=== PATIENT | female | born 1950 | race Caucasian/White ===

== ENCOUNTER 2017-04-13 12:55 | Emergency (ER) | payer MEDICARE ==
[2017-04-13 13:00] VITALS: RESP 18
[2017-04-13] MEDS ORDERED: SODIUM CHLORIDE 0.9% 1,000 ML IV ONE (13:40)
[2017-04-13] MEDS ORDERED: RX INFO: IV CONTRAST WAS GIVEN 1 EACH MISC MISCELLANE PRN (13:40)
[2017-04-13] MEDS ORDERED: FAMOTIDINE 20 MG/2 ML VIAL IV STA (13:41)
[2017-04-13] MEDS ORDERED: diphenhydrAMINE 50 MG/ML 1 ML VIAL IVP STA (13:41)
--- NOTE | 2017-04-13 13:42 | ED ---
General Adult HPI - General Chief complaint: Recheck/Abnormal Lab/Rx Stated complaint: Lump/Abscess on side of face Time Seen by Provider: 04/13/17 13:19 Source: patient, RN notes reviewed, old records reviewed Mode of arrival: ambulatory Limitations: no limitations - History of Present Illness Initial comments: 66-year-old female chief complaint of left-sided facial swelling for the past day. Patient reports that she is not shower noticed this abnormal swelling. Denies any recent fever or chills. She reports that very painful to touch. Patient states that it's over the lower jaw. Denies any foul taste in her mouth or abnormal salivation. Patient states she's never had symptoms like this before. Denies any specific ear pain or difficulty in hearing. - Related Data Home Medications Medication Instructions Recorded Confirmed Leflunomide [Arava] 10 mg PO DAILY 04/13/17 04/13/17 Levothyroxine Sodium [Synthroid] 75 mcg PO DAILY 04/13/17 04/13/17 amLODIPine [Norvasc] 5 mg PO DAILY 04/13/17 04/13/17 Previous Rx's Medication Instructions Recorded Amoxic-Pot Clav 875-125Mg 1 tab PO Q12HR #20 tablet 04/13/17 [Augmentin 875-125] Allergies Allergy/AdvReac Type Severity Reaction Status Date / Time iodine Allergy Anaphylaxis Verified 04/13/17 13:55 Review of Systems ROS Statement: Those systems with pertinent positive or pertinent negative responses have been documented in the HPI. ROS Other: All systems not noted in ROS Statement are negative. Past Medical History Past Medical History: Hyperlipidemia, Hypertension, Rheumatoid Arthritis (RA), Supraventricular Tachycardia (SVT), Thyroid Disorder History of Any Multi-Drug Resistant Organisms: MRSA, Other MDRO Date of last positivie culture/infection: 2006 Past Surgical History: Appendectomy, Section, Hysterectomy Past Psychological History: No Psychological Hx Reported Smoking Status: Current every day smoker Past Alcohol Use History: Rare Past Drug Use History: None Reported General Exam - General Exam Comments Initial Comments: 66-year-old female. No acute distress. Limitations: no limitations General appearance: alert, in no apparent distress Head exam: Present: atraumatic, normocephalic, normal inspection Eye exam: Present: normal appearance, PERRL, EOMI. Absent: scleral icterus, conjunctival injection, periorbital swelling ENT exam: Present: normal exam, normal oropharynx, mucous membranes moist, other (Evidence of left-sided neck and lower jaw abscess.) Neck exam: Present: normal inspection. Absent: tenderness, meningismus, lymphadenopathy Respiratory exam: Present: normal lung sounds bilaterally. Absent: respiratory distress, wheezes, rales, rhonchi, stridor Cardiovascular Exam: Present: regular rate, normal rhythm, normal heart sounds. Absent: systolic murmur, diastolic murmur, rubs, gallop, clicks GI/Abdominal exam: Present: soft, normal bowel sounds. Absent: distended, tenderness, guarding, rebound, rigid Extremities exam: Present: normal inspection, full ROM, normal capillary refill. Absent: tenderness, pedal edema, joint swelling, calf tenderness Back exam: Present: normal inspection Neurological exam: Present: alert, oriented X3, CN II-XII intact Psychiatric exam: Present: normal affect, normal mood Skin exam: Present: warm, dry, intact, normal color. Absent: rash Course Vital Signs 04/13/17 04/13/17 12:58 16:18 Temperature 98.5 F 97.9 F Pulse Rate 75 64 Respiratory 18 18 Rate Blood Pressure 133/77 130/70 O2 Sat by Pulse 94 L 94 L Oximetry Medical Decision Making - Lab Data Result diagrams: 04/13/17 14:09 04/13/17 14:09 Lab Results 04/13/17 04/13/17 Range/Units 14:09 14:09 WBC 5.1 (3.8-10.6) k/uL RBC 4.99 (3.80-5.40) m/uL Hgb 15.4 (11.4-16.0) gm/dL Hct 43.8 (34.0-46.0) % MCV 87.7 (80.0-100.0) fL MCH 30.8 (25.0-35.0) pg MCHC 35.1 (31.0-37.0) g/dL RDW 12.9 (11.5-15.5) % Plt Count 203 (150-450) k/uL Neutrophils % 61 % Lymphocytes % 22 % Monocytes % 10 % Eosinophils % 4 % Basophils % 1 % Neutrophils # 3.2 (1.3-7.7) k/uL Lymphocytes # 1.1 (1.0-4.8) k/uL Monocytes # 0.5 (0-1.0) k/uL Eosinophils # 0.2 (0-0.7) k/uL Basophils # 0.1 (0-0.2) k/uL Sodium 144 (137-145) mmol/L Potassium 3.7 (3.5-5.1) mmol/L Chloride 107 (98-107) mmol/L Carbon Dioxide 30 (22-30) mmol/L Anion Gap 7 mmol/L BUN 10 (7-17) mg/dL Creatinine 0.67 (0.52-1.04) mg/dL Est GFR (MDRD) Af Amer >60 (>60 ml/min/1.73 sqM) Est GFR (MDRD) Non-Af >60 (>60 ml/min/1.73 sqM) Glucose 98 (74-99) mg/dL Calcium 9.0 (8.4-10.2) mg/dL Disposition Clinical Impression: Acute parotitis, Sialolithiasis Disposition: HOME SELF-CARE Condition: Good Instructions: Sialoadenitis (ED) Additional Instructions: Patient advised to use lemon drops or any other acidic candies to allow the salivary stone to be removed. Follow-up with ENT specialist. Take antibiotics as prescribed. Return to the emergency department if any alarming signs or symptoms occur. Prescriptions: Amoxic-Pot Clav 875-125Mg [Augmentin 875-125] 1 tab PO Q12HR #20 tablet Referrals: Jeramie Watts DO [Primary Care Provider] - 1-2 days Yusuf Meredith MD [STAFF PHYSICIAN] - 1-2 days Time of Disposition: 16:10
[2017-04-13] MEDS: methylPREDNISolone SOD SUCCI 125 MG/2 ML VIAL IV STA ×2 (13:59→14:06)
[2017-04-13 14:21] LABS: Basophils # (A) 0.1 k/uL (0-0.2); Basophils % (A) 1 %; CH 29.7; Eosinophils # (A) 0.2 k/uL (0-0.7); Eosinophils % (A) 4 %; HCT 43.8 % (34.0-46.0); HDW 2.63; HGB 15.4 gm/dL (11.4-16.0); Luc % (Auto) 2; Lymphocytes # (A) 1.1 k/uL (1.0-4.8); Lymphocytes % (A) 22 %; MCH 30.8 pg (25.0-35.0); MCHC 35.1 g/dL (31.0-37.0); MCV 87.7 fL (80.0-100.0); Mean Platelet Volume 8.2; Monocytes # (A) 0.5 k/uL (0-1.0); Monocytes % (A) 10 %; Neutrophils # (A) 3.2 k/uL (1.3-7.7); Neutrophils % (A) 61 %; RBC 4.99 m/uL (3.80-5.40); RDW 12.9 % (11.5-15.5); WBC 5.1 k/uL (3.8-10.6); WBC (Perox) 5.14
[2017-04-13 14:35] LABS: Anion Gap 7 mmol/L; Blood Urea Nitrogen 10 mg/dL (7-17); Carbon Dioxide 30 mmol/L (22-30); Chloride 107 mmol/L (98-107); Glucose 98 mg/dL (74-99); Non-African American GFR(MDRD) >60 (>60 ml/min/1.73 sqM); Potassium 3.7 mmol/L (3.5-5.1); Sodium 144 mmol/L (137-145)
--- NOTE | 2017-04-13 15:53 | CT ---
EXAMINATION TYPE: CT soft tissue neck wo con DATE OF EXAM: 04/13/2017 HISTORY: Patient complains of painful mass anterior and inferior to left ear. COMPARISON: NONE CT DLP: 331.4 mGycm. Automated Exposure Control for Dose Reduction was Utilized. TECHNIQUE: CT scan of the neck is performed without IV contrast due to IV contrast and steroid aller gy. FINDINGS: Airway: No gross abnormality seen. Parotid/submandibular glands: There is asymmetric heterogeneous enlarged left parotid gland with some mild infiltration of surrounding fat along lateral aspect. No well-formed fluid collection or absces s is seen. There appears to be 2 mm round calcific focus suspicious for sialolith along proximal port ion of the draining Stensen's duct seen best on axial image 49 and sagittal image 64 and coronal imag e 33. Submandibular glands are symmetric and felt within normal limits. Carotid/Vascular Structures: There is mild to moderate peripheral calcified plaque at bilateral carot id bulbs. Mild to moderate calcified plaque is seen in the aortic arch. Osseous Structures: Spine is straightened. There is moderate disc space narrowing with mild spurring at C5-C6 and C6-C7 levels. Other: Slight nodular prominence right axillary region on axial image 11 appears to correspond to vas cular structure inferior to this, cannot exclude borderline adenopathy. Consider nonemergent follow-u p. No additional greater than 1 cm neck lymph nodes are clearly seen. IMPRESSION: 1. There is left-sided inflammation or parotiditis suspected acute and related to obstructing 2 mm si alolith as detailed above. ENT consult advised. No well-formed fluid collection or abscess is seen. 2. Cannot exclude borderline right axillary lymph node. This can be correlated with annual mammogram. Nonemergent ultrasound follow-up recommended.
[2017-04-13] MEDS ORDERED: AMOXIC-POT CLAV 875MG STARTER 2 EACH TABLET PO STA (16:10)
[2017-04-13 16:19] VITALS: BP 130/70; PULSE 64; TEMP 97.9
== END 2017-04-13 16:21 | disposition home or self-care (01) ==
LOC: EC 12:55
DX: K11.5 Sialolithiasis (principal); K11.20 Sialoadenitis, unspecified; I10 Essential (primary) hypertension; M06.9 Rheumatoid arthritis, unspecified; E07.9 Disorder of thyroid, unspecified; F17.200 Nicotine dependence, unspecified, uncomplicated; Z79.899 Other long term (current) drug therapy; Z91.048 Other nonmedicinal substance allergy status; Z53.20 Procedure and treatment not carried out because of patient's decision for unspecified reasons
CPT/HCPCS: 99284; 96374; 96375; 96361 ×2; 36415; 80048; 85025; 70490; J1200

== ENCOUNTER → 2017-04-15 | Outpatient (CLI) | payer MEDICARE ==
--- NOTE | 2017-04-15 12:41 | US ---
EXAMINATION TYPE: US gallbladder DATE OF EXAM: 04/15/2017 COMPARISON: 07/04/2010 CLINICAL HISTORY: R19.7 Diarrhea and Abd Pain R10.9. Intermittent abdomen and back pain and nausea x couple years, history of appendectomy EXAM MEASUREMENTS: Liver Length: 13.6 cm Gallbladder Wall: 0.2 cm CBD: 0.3 cm Right Kidney: 9.9 x 4.7 x 4.3 cm Pancreas: visualized portions wnl, tail obscured by overlying midline bowel gas Liver: Coarse in echo pattern Gallbladder: not well visualized, appears contracted Evidence for sonographic Byrnes's sign: yes CBD: visualized portions wnl, limited by overlying bowel gas Right Kidney: wnl IMPRESSION: 1. The gallbladder is contracted and limited in assessment. 2. Liver somewhat coarsened echo pattern correlate for fatty infiltration. Hepatitis or hepatocellula r disease in the differential diagnosis.
--- NOTE | 2017-04-15 15:10 | NM ---
Nuclear medicine hepatobiliary scan. HISTORY: Pain. DOSAGE: The patient received 8 ounces of ensure plus and 5.2 mCi of Technetium 99m Choletec. FINDINGS: There is normal hepatic extraction. The gallbladder is seen by 15 minutes. There is bilia ry to bowel clearance by 15 minutes. Ejection fraction is 65%. IMPRESSION: 1. Normal hepatobiliary exam
== END ==
LOC: RADUSMAIN 11:56
PROVIDERS: ATTEND Family Medicine
DX: R10.9 Unspecified abdominal pain (principal); R19.7 Diarrhea, unspecified
CPT/HCPCS: 76705; 78226; A9537

== ENCOUNTER → 2017-05-04 | Outpatient (CLI) | payer MEDICARE ==
--- NOTE | 2017-05-05 13:19 | MM ---
Reason for exam: screening (asymptomatic). Last mammogram was performed 5 years and 5 months ago. History: Patient is postmenopausal. Physical Findings: A clinical breast exam by your physician is recommended on an annual basis and results should be correlated with mammographic findings. MG 3D Screening Mammo W/Cad Bilateral CC and MLO view(s) were taken. Prior study comparison: November 24, 2011, bilateral digital screening mammo w/CAD. October 13, 2010, mammogram, performed at [facility]. The breast tissue is almost entirely fat. No significant changes when compared with prior studies. ASSESSMENT: Negative, BI-RAD 1 RECOMMENDATION: Routine screening mammogram of both breasts in 1 year.
== END | disposition home or self-care (01) ==
LOC: RADMAMWWP 08:33
PROVIDERS: ATTEND Family Medicine
DX: Z12.31 Encounter for screening mammogram for malignant neoplasm of breast (principal)
CPT/HCPCS: 77063; G0202

== ENCOUNTER 2017-05-13 07:41 | Day surgery (SDC) | payer MEDICARE ==
[2017-05-09 16:16] VITALS: BMI 27.7
[~2017-05-13 07:41] MED LIST: DEXAMETHASONE SOD PHOSPHATE 10 MG/ML 1 ML VIAL IV ONE; HEPARIN SODIUM,PORCINE 5,000 UNIT/ML 1 ML VIAL SQ ONE; HYDROmorphone 0.5 MG/0.5 ML SYRINGE IVP PRN; LACTATED RINGERS 1,000 ML IV SCH; LIDOCAINE 1% 20 ML VIAL (10MG/ML) FOR IV START INTRADERMA PRN; MIDAZOLAM 2 MG/2 ML VIAL IV PRN; ONDANSETRON 4 MG/2 ML VIAL IVP ONE; SCOPOLAMINE 1.5MG/72HR PATCH TRANSDERM ONE; ceFAZolin 2 GM in SODIUM CHLORIDE 0.9% 100 ML IVPB ONE
[2017-05-13] MEDS ORDERED: LIDOCAINE 1% 20 ML VIAL (10MG/ML) FOR IV START INTRADERMA ONE (08:17)
--- NOTE | 2017-05-13 08:42 | P.GSHP ---
History of Present Illness H&P Date: 05/13/17 Chief Complaint: Right upper quadrant pain Is a 66-year-old female who's had complaints of right quadrant pain. Patient describes crampy abdominal pain in the right quadrant after eating greasy food. She has nausea associated with this as well. Patient recent ultrasound showed a thickened gallbladder wall consistent with chronic cholecystitis. Past Medical History Past Medical History: Hyperlipidemia, Hypertension, Rheumatoid Arthritis (RA), Supraventricular Tachycardia (SVT), Thyroid Disorder Additional Past Medical History / Comment(s): salivary gland stone-resolved History of Any Multi-Drug Resistant Organisms: MRSA, Other MDRO Date of last positivie culture/infection: 2006 MDRO Source:: abscess top of rt leg Past Surgical History: Appendectomy, Section, Hysterectomy Past Anesthesia/Blood Transfusion Reactions: No Reported Reaction Smoking Status: Current every day smoker - Past Family History Father Family Medical History: Cancer Medications and Allergies Home Medications Medication Instructions Recorded Confirmed Type Leflunomide [Arava] 10 mg PO DAILY 04/13/17 05/13/17 History Levothyroxine Sodium [Synthroid] 75 mcg PO DAILY 04/13/17 05/13/17 History amLODIPine [Norvasc] 5 mg PO DAILY 04/13/17 05/13/17 History Nebivolol HCl [Bystolic] 10 mg PO DAILY 05/09/17 05/13/17 History Allergies Allergy/AdvReac Type Severity Reaction Status Date / Time adhesive tape Allergy Itching Verified 05/09/17 16:09 iodine Allergy Anaphylaxis Verified 05/09/17 16:09 Surgical - Exam Vital Signs Temp Pulse Resp BP Pulse Ox 97.5 F L 56 L 16 147/85 93 L 05/13/17 08:04 05/13/17 08:04 05/13/17 08:04 05/13/17 08:04 05/13/17 08:04 - General well developed, no distress - Eyes PERRL - ENT normal pinna - Neck no masses - Respiratory normal expansion - Cardiovascular Abnormal Heart Sounds: systolic murmur - Abdomen Mild right upper quadrant tenderness Abdomen: soft Assessment and Plan Plan: Chronic cholecystitis. We'll perform laparoscopic cholecystectomy.
[2017-05-13] MEDS ORDERED: PROPOFOL 10 MG/ML 20 ML VIAL IV ONE (08:58)
[2017-05-13] MEDS ORDERED: ePHEDrine SULFATE/0.9% NACL/PF 50 MG/5 ML SYRINGE IV ONE (08:58)
[2017-05-13] MEDS ORDERED: SUCCINYLCHOLINE CHLORIDE 100 MG/5 ML SYR IV ONE (08:58)
[2017-05-13] MEDS ORDERED: ROCURONIUM BROMIDE 10 MG/ML 10 ML VIAL IV ONE (08:58)
[2017-05-13] MEDS ORDERED: LIDOCAINE 1% INJ 10MG/ML (20 ML MDV) ONE (08:58)
[2017-05-13] MEDS ORDERED: KETOROLAC 30 MG/ML 1 ML VIAL ONE (08:58)
[2017-05-13] MEDS ORDERED: fentaNYL (PF) 50 MCG/ML 2 ML AMP ONE (08:58)
[2017-05-13] MEDS ORDERED: BUPIVACAINE (PF) 0.5% 30 ML VIAL SQ ONE ×2 (09:09→09:23)
--- NOTE | 2017-05-13 09:44 | P.OP ---
Date of Procedure: 05/13/17 Preoperative Diagnosis: Cholecystitis Postoperative Diagnosis: Cholecystitis Procedure(s) Performed: Laparoscopic cholecystectomy Anesthesia: RAMA Surgeon: Kurtis Lewis Estimated Blood Loss (ml): 5 Pathology: other (gAll bladder) Description of Procedure: The patient was placed on the operating table. The patient received a general endotracheal tube anesthesia. The patients abdomen was prepped and draped in the usual sterile fashion. Through an infraumbilical stab incision, the fascia of the anterior abdominal wall was grasped with a pair of Kochers and then the Veress needle was placed in the peritoneal cavity. Position of the Veress needle was confirmed with positive drop test. The abdomen was then insufflated. After adequate insufflation, the 10 mm trocar was placed in the peritoneal cavity. Following this the laparoscope was placed in the peritoneal cavity. The patient was placed in the head-up, right side up position and then a 5 mm trocar was placed in the right lateral and right subcostal position under direct visualization. A 8 mm trocar was placed in the epigastric position. The gallbladder was grasped in the fundus and infundibulum. Traction on the gallbladder was placed in the lateral and the cephalad positions. The triangle of Calot was visualized.. The cystic duct was bluntly dissected until the union of the cystic duct and common bile duct was seen. The cystic duct was then divided and sealed with the Harmonic scissors. A PDS Endoloop was then placed throughout the cystic duct stump. The cystic artery divided and sealed with the Harmonic scissors. The gallbladder was then removed from the liver bed using Harmonic scissors. The gallbladder was then extracted through the epigastric port site. Operative field was checked for any bleeding spots and Harmonic scissors was used to coagulate the liver bed. The abdomen was irrigated. The trocars were removed. The skin was closed using interrupted 3-0 Vicryl suture. Dermabond dressing were applied. The patient tolerated the procedure well.
[2017-05-13 09:54] VITALS: TEMP 97.4
[2017-05-13 10:43] VITALS: RESP 18
[2017-05-13] MEDS ORDERED: LACTATED RINGERS 1,000 ML IV ONE (11:03)
[2017-05-13 12:29] VITALS: BP 119/67; PULSE 55
== END 2017-05-13 12:42 | disposition home or self-care (01) ==
LOC: OR 07:41
PROVIDERS: ATTEND Surgery
DX: K81.1 Chronic cholecystitis (principal); I89.8 Other specified noninfective disorders of lymphatic vessels and lymph nodes; E78.5 Hyperlipidemia, unspecified; I10 Essential (primary) hypertension; M06.9 Rheumatoid arthritis, unspecified; I47.1 Supraventricular tachycardia; E07.9 Disorder of thyroid, unspecified; F17.200 Nicotine dependence, unspecified, uncomplicated; Z79.899 Other long term (current) drug therapy; Z91.041 Radiographic dye allergy status; Z91.09 Other allergy status, other than to drugs and biological substances
CPT/HCPCS: 88304; 47562; J1644; J1100; J0690; J2405; J2001; J3010; J1885; J0330; J2704

== ENCOUNTER 2018-10-02 16:16 | Emergency (ER) | payer MEDICARE ==
[2018-10-02 17:39] VITALS: BP 125/78; PULSE 69; RESP 18; TEMP 98.7
[2018-10-02] MEDS ORDERED: LIDOCAINE 1% INJ 10MG/ML (20 ML MDV) SQ ONE (17:56)
[2018-10-02] MEDS ORDERED: CEPHALEXIN 500MG STARTER PACK 4 CAP BTL PO STA (18:11)
[2018-10-02] MEDS ORDERED: SULFAMETH-TMP DS STARTER PACK 2 TAB BTL PO STA (18:11)
--- NOTE | 2018-10-02 18:13 | ED ---
Skin/Abscess/FB HPI - General Chief complaint: Skin/Abscess/Foreign Body Stated complaint: Leg Infection Time Seen by Provider: 10/02/18 17:42 Source: patient Mode of arrival: ambulatory Limitations: no limitations - History of Present Illness Initial comments: Pleasant, well appearing 67-year-old female with distant history of MRSA infection presenting today for chief complaint of possible ingrown hair of the right inguinal region. Patient states about 2 days ago she noticed a small bump that appear to be an ingrown hair of the right side of the labia majora. She states increased in size it's now about the size of a nickel/quarters. She states she has been able to squeeze some blood out of it however no pus. She denies a significant soft tissue surrounding redness. She denies any fever or chills or night sweats. Patient denies any general malaise. She states is uncomfortable walking due to rubbing. Remaining review of systems negative, patient denies any recent shortness of breath, chest pain, back pain, abdominal pain, nausea or vomiting, numbness or tingling, dysuria or hematuria, constipation or diarrhea, headaches or visual changes, or any other complaints. - Related Data Home Medications Medication Instructions Recorded Confirmed Leflunomide [Arava] 10 mg PO DAILY 04/13/17 05/13/17 Levothyroxine Sodium [Synthroid] 75 mcg PO DAILY 04/13/17 05/13/17 amLODIPine [Norvasc] 5 mg PO DAILY 04/13/17 05/13/17 Nebivolol HCl [Bystolic] 10 mg PO DAILY 05/09/17 05/13/17 Previous Rx's Medication Instructions Recorded Docusate [Colace] 100 mg PO BID #20 capsule 05/13/17 HYDROcodone/APAP 7.5-325MG [[place] 1 each PO Q4H PRN #60 tab 05/13/17 7.5] Cephalexin [Keflex] 500 mg PO Q6HR 7 Days #28 cap 10/02/18 Sulfamethox-Tmp 800-160Mg [Bactrim 1 tab PO Q12HR 7 Days #14 tab 10/02/18 DS 800-160 mg] Allergies Allergy/AdvReac Type Severity Reaction Status Date / Time adhesive tape Allergy Itching Verified 10/02/18 17:39 iodine Allergy Anaphylaxis Verified 10/02/18 17:39 Review of Systems ROS Statement: Those systems with pertinent positive or pertinent negative responses have been documented in the HPI. ROS Other: All systems not noted in ROS Statement are negative. Past Medical History Past Medical History: Hyperlipidemia, Hypertension, Rheumatoid Arthritis (RA), Supraventricular Tachycardia (SVT), Thyroid Disorder Additional Past Medical History / Comment(s): salivary gland stone-resolved History of Any Multi-Drug Resistant Organisms: MRSA, Other MDRO Date of last positivie culture/infection: 2006 MDRO Source:: abscess top of rt leg Past Surgical History: Appendectomy, Section, Hysterectomy Past Anesthesia/Blood Transfusion Reactions: No Reported Reaction Past Psychological History: No Psychological Hx Reported Smoking Status: Current every day smoker - Past Family History Father Family Medical History: Cancer General Exam - General Exam Comments Initial Comments: General: The patient is awake and alert, in no distress, and does not appear acutely ill. Eye: +3 mm pupils are equal, round and reactive to light, extra-ocular movements are intact. No nystagmus. There is normal conjunctiva bilaterally. No signs of icterus. Ears, nose, mouth and throat: There are moist mucous membranes and no oral lesions. Neck: The neck is supple, there is no tenderness or JVD. Cardiovascular: There is a regular rate and rhythm. No murmur, rub or gallop is appreciated. Respiratory: Lungs are clear to auscultation, respirations are non-labored, breath sounds are equal. No wheezes, stridor, rales, or rhonchi. Gastrointestinal: Soft, non-distended, non-tender abdomen without masses or organomegaly noted. There is no rebound or guarding present. No CVA tenderness. Bowel sounds are unremarkable. Musculoskeletal: Normal ROM, no tenderness. Strength 5/5. Sensation intact. Pulses equal bilaterally 2+. Neurological: A&O x 3. CN II-XII intact, There are no obvious motor or sensory deficits. Coordination appears grossly intact. Speech is normal. Skin: Skin is warm and dry and no rashes. Upon inspection of the right labia majora there is a small carbuncle that appears to have developed into an abscess. Small area of fluctuance in the center. No significant surrounding erythema very mild about the size of a quarter. No involvement of the peritoneum. No surrounding cellulitis. Tender to palpation. Psychiatric: Cooperative, appropriate mood & affect, normal judgment. Limitations: no limitations Course Vital Signs 10/02/18 17:37 Temperature 98.7 F Pulse Rate 69 Respiratory 18 Rate Blood Pressure 125/78 O2 Sat by Pulse 94 L Oximetry Procedures - Incision & Drainage Consent Obtained: verbal consent Indication: abscess Site: other (right labia majora) Size (cm): 1 Anesthetic Used: lidocaine 1% Amount (mLs): 1 I&D Cleaning Method: Iodine Sterile Field Used?: No Scalpel Used: #11 Needle Aspiration Performed?: No Irrigation Performed?: Yes I&D Drainage Obtained: Pus, Blood Packing: Other (no packing indicated, no large enough) Culture Obtained?: Yes Patient Tolerated Procedure: well, no complications Medical Decision Making - Medical Decision Making Appearing 67 year old female no signs of toxicity present today for chief complaint abscess. PE revealed furuncle that likely developed into small abscess with no surrounding cellulitis. I&D was performed patient however procedure and I did obtain verbal consent. Cultures are obtained, pending. Given patient's history of previous MRSA infection although this was 20 years ago I did start patient on antibiotic regimen that covers staph strep, and MRSA. Patient refuses any pain medication prior after procedure. At this time I do feel patient is stable for discharge. I discussed the case including PE findings with attending, Dr. Phillip who agreed with impression and plan. Pt was discharged appearing well, and pleased with plan. Patient is aware of all return parameters and follow-up instruction. Patient denies questions at this time. Disposition Clinical Impression: Abscess Disposition: HOME SELF-CARE Condition: Good Instructions (If sedation given, give patient instructions): Abscess Incision and Drainage (ED) Additional Instructions: Please use medication as discussed. Please follow-up with family doctor in the next 2 days. Please return to emergency room if the symptoms increase or worsen or for any other concerns, spread of redness, fever. Prescriptions: Cephalexin [Keflex] 500 mg PO Q6HR 7 Days #28 cap Sulfamethox-Tmp 800-160Mg [Bactrim DS 800-160 mg] 1 tab PO Q12HR 7 Days #14 tab Is patient prescribed a controlled substance at d/c from ED?: No Referrals: Jeramie Watts DO [Primary Care Provider] - 1-2 days Time of Disposition: 18:12
== END 2018-10-02 18:42 | disposition home or self-care (01) ==
LOC: EC 16:16
DX: N76.4 Abscess of vulva (principal); M06.9 Rheumatoid arthritis, unspecified; I10 Essential (primary) hypertension; E07.9 Disorder of thyroid, unspecified; F17.200 Nicotine dependence, unspecified, uncomplicated; Z86.14 Personal history of Methicillin resistant Staphylococcus aureus infection; Z79.890 Hormone replacement therapy; Z79.899 Other long term (current) drug therapy; Z88.8 Allergy status to other drugs, medicaments and biological substances; Z91.048 Other nonmedicinal substance allergy status
CPT/HCPCS: 87070; 87205; 99283; 56405; J2001

== ENCOUNTER 2018-12-06 18:53 | Inpatient (IN) | payer MEDICARE ==
[2018-12-06] MEDS ORDERED: ASPIRIN 81 MG PO STA (19:26)
--- NOTE | 2018-12-06 19:28 | ED ---
General Adult HPI - General Chief complaint: Chest Pain Stated complaint: chest pains Time Seen by Provider: 12/06/18 19:15 Source: patient Mode of arrival: ambulatory Limitations: no limitations - History of Present Illness Initial comments: Dictation was produced using [employer] dictation software. please excuse any grammatical, word or spelling errors. Chief Complaint: 68-year-old female past medical history of rheumatoid arthritis, supraventricular tachycardia presents with episode of chest pain. History of Present Illness: Patient is a 68-year-old female with past medical history of rheumatoid arthritis and supraventricular tachycardia presents with episode of chest pain. Patient states she was sitting in her kitchen when she developed a intense epigastric substernal chest pressure with radiation to the back. She denies that this pain radiated to her upper extremities, shoulders or jaws. No diaphoresis however she did feel little clammy. She is taking that this was secondary to reflux that she drank a couple sips of Mylanta. She states it didn't really help. On her way en route to the emergency department she states her symptoms improved. She denies any history of coronary artery disease. There is some family history of cardiac disease. Patient asymptomatic at this time. She otherwise has been feeling at baseline. The ROS documented in this emergency department record has been reviewed and confirmed by me. Those systems with pertinent positive or negative responses have been documented in the HPI. All other systems are other negative and/or noncontributory. PHYSICAL EXAM: General Impression: Alert and oriented x3, not in acute distress HEENT: Normocephalic atraumatic, extra-ocular movements intact, pupils equal and reactive to light bilaterally, mucous membranes moist. Cardiovascular: Heart regular rate and rhythm, S1&S2 audible, no murmurs, rubs or gallops Chest: Lungs clear to auscultation bilaterally, no rhonchi, no wheeze, no rales Abdomen: Bowel sounds present, abdomen soft, non-tender, non-distended, no organomegaly Musculoskeletal: Pulses present and equal in all extremities, no peripheral edema Motor: no focal deficits noted Neurological: CN II-XII grossly intact, no focal motor or sensory deficits noted Skin: Intact with no visualized rashes Psych: Normal affect and mood ED course: 68-year-old female with chief complaint of chest pain. Vital signs upon arrival are within acceptable limits.Patient is asymptomatic at this time. Patient's clinical presentation concerning for ACS. EKG showed ischemic changes with diffuse T-wave inversions in the precordial leads. Laboratory evaluation obtained. CBC, coag panel unremarkable. Metabolic panel is negative. Cardiac enzymes negative. Repeat EKG shows no dynamic changes. Patient reevaluated found with stable medical condition. Patient started on heparin. We'll plan to have patient admitted for evaluation of acute coronary syndrome. Patient given aspirin. Patient understandable agreeable to disposition. Discussed patient case with Dr. Emery who is willing to accept the admission. EKG interpretation: Ventricular rate 65, normal sinus rhythm, AZ interval 1:30, care is 82, QTc 453. No AZ prolongation, no QTC prolongation. T-wave inversions in high lateral leads and precordial leads. - Related Data Home Medications Medication Instructions Recorded Confirmed Levothyroxine Sodium [Synthroid] 75 mcg PO DAILY 04/13/17 12/06/18 amLODIPine [Norvasc] 5 mg PO DAILY 04/13/17 12/06/18 Carvedilol 12.5 mg PO DAILY 12/06/18 12/06/18 Diphenoxylate HCl/Atropine 1 tab PO QID PRN 12/06/18 12/06/18 [Lomotil 2.5-0.025 mg Tablet] Allergies Allergy/AdvReac Type Severity Reaction Status Date / Time adhesive tape Allergy Itching Verified 12/06/18 19:07 iodine Allergy Anaphylaxis Verified 12/06/18 19:07 latex Allergy Rash/Hives Verified 12/06/18 19:41 sulfamethoxazole Allergy Unknown Verified 12/06/18 19:41 [From Bactrim] trimethoprim [From Bactrim] Allergy Unknown Verified 12/06/18 19:41 STEROIDS AdvReac Uncoded 12/06/18 19:41 Review of Systems ROS Statement: Those systems with pertinent positive or pertinent negative responses have been documented in the HPI. ROS Other: All systems not noted in ROS Statement are negative. Past Medical History Past Medical History: Hyperlipidemia, Hypertension, Rheumatoid Arthritis (RA), Supraventricular Tachycardia (SVT), Thyroid Disorder Additional Past Medical History / Comment(s): salivary gland stone-resolved, IBS History of Any Multi-Drug Resistant Organisms: MRSA, Other MDRO Date of last positivie culture/infection: 2006 MDRO Source:: abscess top of rt leg Past Surgical History: Appendectomy, Section, Cholecystectomy, Hysterectomy Past Anesthesia/Blood Transfusion Reactions: No Reported Reaction Past Psychological History: No Psychological Hx Reported Smoking Status: Current every day smoker Past Alcohol Use History: None Reported Past Drug Use History: None Reported - Past Family History Father Family Medical History: Cancer General Exam Limitations: no limitations Course Vital Signs 12/06/18 12/06/18 12/06/18 19:05 20:00 20:30 Temperature 98.4 F Pulse Rate 63 64 60 Respiratory 18 14 22 Rate Blood Pressure 152/90 162/95 135/82 O2 Sat by Pulse 96 93 L 94 L Oximetry Medical Decision Making - Lab Data Result diagrams: 12/06/18 19:40 12/06/18 19:40 Lab Results 12/06/18 12/06/18 12/06/18 Range/Units 19:40 19:40 19:40 WBC 6.8 (3.8-10.6) k/uL RBC 5.06 (3.80-5.40) m/uL Hgb 14.9 (11.4-16.0) gm/dL Hct 45.6 (34.0-46.0) % MCV 90.2 (80.0-100.0) fL MCH 29.5 (25.0-35.0) pg MCHC 32.7 (31.0-37.0) g/dL RDW 13.2 (11.5-15.5) % Plt Count 208 (150-450) k/uL Neutrophils % 54 % Lymphocytes % 30 % Monocytes % 7 % Eosinophils % 4 % Basophils % 1 % Neutrophils # 3.6 (1.3-7.7) k/uL Lymphocytes # 2.0 (1.0-4.8) k/uL Monocytes # 0.5 (0-1.0) k/uL Eosinophils # 0.3 (0-0.7) k/uL Basophils # 0.1 (0-0.2) k/uL PT 9.6 (9.0-12.0) sec INR 0.9 (<1.2) APTT 22.8 (22.0-30.0) sec Sodium 142 (137-145) mmol/L Potassium 4.2 (3.5-5.1) mmol/L Chloride 105 (98-107) mmol/L Carbon Dioxide 28 (22-30) mmol/L Anion Gap 9 mmol/L BUN 11 (7-17) mg/dL Creatinine 0.58 (0.52-1.04) mg/dL Est GFR (CKD-EPI)AfAm >90 (>60 ml/min/1.73 sqM) Est GFR (CKD-EPI)NonAf >90 (>60 ml/min/1.73 sqM) Glucose 107 H (74-99) mg/dL Calcium 9.2 (8.4-10.2) mg/dL Magnesium 2.0 (1.6-2.3) mg/dL Total Bilirubin 0.5 (0.2-1.3) mg/dL AST 24 (14-36) U/L ALT 23 (9-52) U/L Alkaline Phosphatase 82 (38-126) U/L Troponin I (0.000-0.034) ng/mL Total Protein 7.7 (6.3-8.2) g/dL Albumin 4.4 (3.5-5.0) g/dL Lipase 45 (23-300) U/L 12/06/18 Range/Units 19:40 WBC (3.8-10.6) k/uL RBC (3.80-5.40) m/uL Hgb (11.4-16.0) gm/dL Hct (34.0-46.0) % MCV (80.0-100.0) fL MCH (25.0-35.0) pg MCHC (31.0-37.0) g/dL RDW (11.5-15.5) % Plt Count (150-450) k/uL Neutrophils % % Lymphocytes % % Monocytes % % Eosinophils % % Basophils % % Neutrophils # (1.3-7.7) k/uL Lymphocytes # (1.0-4.8) k/uL Monocytes # (0-1.0) k/uL Eosinophils # (0-0.7) k/uL Basophils # (0-0.2) k/uL PT (9.0-12.0) sec INR (<1.2) APTT (22.0-30.0) sec Sodium (137-145) mmol/L Potassium (3.5-5.1) mmol/L Chloride (98-107) mmol/L Carbon Dioxide (22-30) mmol/L Anion Gap mmol/L BUN (7-17) mg/dL Creatinine (0.52-1.04) mg/dL Est GFR (CKD-EPI)AfAm (>60 ml/min/1.73 sqM) Est GFR (CKD-EPI)NonAf (>60 ml/min/1.73 sqM) Glucose (74-99) mg/dL Calcium (8.4-10.2) mg/dL Magnesium (1.6-2.3) mg/dL Total Bilirubin (0.2-1.3) mg/dL AST (14-36) U/L ALT (9-52) U/L Alkaline Phosphatase (38-126) U/L Troponin I <0.012 (0.000-0.034) ng/mL Total Protein (6.3-8.2) g/dL Albumin (3.5-5.0) g/dL Lipase (23-300) U/L Disposition Clinical Impression: Chest pain Disposition: ADMITTED IP TO THIS HOSP Condition: Fair Referrals: Jeramie Watts DO [Primary Care Provider] - 1-2 days Decision Time: 21:24
[2018-12-06 19:59] LABS: Basophils # (A) 0.1 k/uL (0-0.2); Basophils % (A) 1 %; Eosinophils # (A) 0.3 k/uL (0-0.7); Eosinophils % (A) 4 %; HCT 45.6 % (34.0-46.0); HGB 14.9 gm/dL (11.4-16.0); Lymphocytes % (A) 30 %; MCH 29.5 pg (25.0-35.0); MCHC 32.7 g/dL (31.0-37.0); MCV 90.2 fL (80.0-100.0); Mean Platelet Volume 7.6; Monocytes # (A) 0.5 k/uL (0-1.0); Monocytes % (A) 7 %; Neutrophils # (A) 3.6 k/uL (1.3-7.7); Neutrophils % (A) 54 %; Platelet Count 208 k/uL (150-450); RBC 5.06 m/uL (3.80-5.40); RDW 13.2 % (11.5-15.5); WBC 6.8 k/uL (3.8-10.6)
--- NOTE | 2018-12-06 20:09 | XR ---
EXAMINATION TYPE: XR chest 2V DATE OF EXAM: 12/06/2018 COMPARISON: 10/07/2009 HISTORY: Chest pain TECHNIQUE: Frontal and lateral views of the chest are obtained. FINDINGS: Heart and mediastinum appear normal. Lungs are clear of infiltrate present there is minima l atelectasis at the right lung base. There are chest leads. Bony thorax is intact. There are no jose r masses. IMPRESSION: There is mild subsegmental atelectasis at the right lung base that is a change compared to old exam. Normal heart.
[2018-12-06 20:11] LABS: ALT 23 U/L (9-52); AST 24 U/L (14-36); Albumin 4.4 g/dL (3.5-5.0); Alkaline Phosphatase 82 U/L (38-126); Anion Gap 9 mmol/L; Blood Urea Nitrogen 11 mg/dL (7-17); Calcium 9.2 mg/dL (8.4-10.2); Carbon Dioxide 28 mmol/L (22-30); Chloride 105 mmol/L (98-107); Glucose 107 mg/dL (74-99); Lipase 45 U/L (23-300); Potassium 4.2 mmol/L (3.5-5.1); Sodium 142 mmol/L (137-145); Total Bilirubin 0.5 mg/dL (0.2-1.3); Total Protein 7.7 g/dL (6.3-8.2)
[2018-12-06 20:20] LABS: INR 0.9 (<1.2); Partial Thromboplastin Time 22.8 sec (22.0-30.0); Prothrombin Time 9.6 sec (9.0-12.0)
[2018-12-06] MEDS ORDERED: HEPARIN SODIUM,PORCINE 5,000 UNIT/ML 1 ML VIAL IV ONE (21:22)
[2018-12-06] MEDS ORDERED: NITROGLYCERIN SL TABS 0.4 MG TAB SUBLINGUAL PRN (21:22)
[2018-12-06] MEDS: HEPARIN SOD,PORK IN 0.45% NACL 25,000 UNIT in 0.45% NACL 1 250ML.BAG IV SCH (22:19)
[2018-12-07 04:22] LABS: Cholesterol 175 mg/dL (<200); HDL Cholesterol 62 mg/dL (40-60); LDL Cholesterol,Calculated 77 mg/dL (0-99); Triglycerides 182 mg/dL (<150)
--- NOTE | 2018-12-07 08:50 | CONS ---
CONSULTATION CHIEF COMPLAINT: Chest pain. Soila is a 68-year-old lady with history of hypertension, hypothyroidism, rheumatoid arthritis, paroxysmal SVT status post ablation who comes to hospital complaining of chest pain. She describes it as a sudden onset chest pressure, moderate to severe intensity in the precordial area that radiated to her back and somewhat to her shoulders. This is associated with some shortness of breath. There was no diaphoresis. She presented to the emergency room with these symptoms and her EKG shows sinus rhythm with extensive anterolateral T-wave inversions. Since being admitted to hospital, she had been chest pain free and hemodynamically stable. Two sets of troponins are negative. I do not have an old EKG. Her LDL cholesterol is 77, HDL is 62. Hemoglobin is normal. Creatinine is 0.58. The patient's coronary risk factors are in the form of hypertension and smoking. Given her risk factors, EKG changes and symptoms, I advised her to undergo cardiac catheterization for definitive diagnosis. She has been explained of risks, benefits and alternatives, understood and accepted. PAST MEDICAL HISTORY: Past medical history is significant for hypertension, hypothyroidism, and irritable bowel syndrome. CURRENT MEDICATIONS: Current medications include Lomotil, Norvasc, Synthroid, and carvedilol. ALLERGIES: The patient is allergic to LATEX, IODINE, BACTRIM and STEROIDS. FAMILY HISTORY: Family history is negative for premature coronary artery disease. SOCIAL HISTORY: Social history is significant for smoking. There is no history of EtOH abuse or drug abuse. REVIEW OF SYSTEMS: HEENT is unremarkable. CARDIAC: As described above. RESPIRATORY: As described above. GI: Negative. GENITOURINARY: Negative. ALLERGY/IMMUNOLOGY: Negative. SKIN: Negative. MUSCULOSKELETAL: Negative. ENDOCRINE: Negative. DERM: Negative. CONSTITUTIONAL: Negative. ONCOLOGICAL: Negative. Rest of the system review is not relevant. PHYSICAL EXAMINATION: On exam, afebrile. Heart rate is 65 beats per minute. Blood pressure is 148/70. Respiratory rate is 18. O2 sat is 95% on room air. There is no jugular venous distention. Carotid upstroke is normal. There is no bruit. Chest exam reveals good air entry bilaterally. Heart exam reveals first and second heart sounds. No gallop. No murmur. No rub. Abdomen is soft, nontender. Examination of extremities did not reveal any edema. Peripheral pulses are felt. LABS: Labs show that the hemoglobin is normal. Creatinine is normal. Cardiac enzymes are normal. ASSESSMENT: 1. Unstable angina. 2. History of paroxysmal supraventricular tachycardia, status post ablation. 3. Abnormal EKG. 4. Hypertension. PLAN: The patient will undergo cardiac catheterization. Patient has history of IV DYE ALLERGY. Will prep her for the same. We will obtain a 2-D echo to assess her LV function. MMPILIL / IJN: [id number] /
[2018-12-07] MEDS ORDERED: DIPHENOX-ATROP 2.5-0.025 MG 1 EACH TAB PO PRN (10:24)
--- NOTE | 2018-12-07 10:59 | ECHOF ---
Referral Reason:chest pain MEASUREMENTS -------- HEIGHT: 170.2 cm WEIGHT: 81.2 kg BP: IVSd: 1.0 cm (0.6 - 1.1) LVIDd: 3.8 cm (3.9 - 5.3) LVPWd: 1.0 cm (0.6 - 1.1) IVSs: 1.4 cm LVIDs: 2.1 cm LVPWs: 1.5 cm LAESV Index (A-L): 20.09 ml/m Ao Diam: 3.0 cm (2.0 - 3.7) AV Cusp: 1.7 cm (1.5 - 2.6) LA Diam: 3.1 cm (2.7 - 3.8) MV EXCURSION: 13.883 mm (> 18.000) MV EF SLOPE: 56 mm/s (70 - 150) EPSS: 0.3 cm MV E Denny: 0.73 m/s MV DecT: 187 ms MV A Denny: 0.66 m/s MV E/A Ratio: 1.11 RAP: 5.00 mmHg RVSP: 24.61 mmHg FINDINGS -------- Sinus rhythm. This was a technically good study. The left ventricular size is normal. There is mild concentric left ventricular hypertrophy. Overa ll left ventricular systolic function is normal with, an EF between 55 - 60 %. The right ventricular wall thickness is normal measuring < 5mm. Normal LA size by volume 22+/-6 ml/m2. The right atrial size is normal. The aortic valve was not well visualized. The mitral valve leaflets are mildly thickened. There is trace mitral regurgitation. Trace tricuspid regurgitation present. The right ventricular systolic pressure, as measured by Dopp ler, is 24.61mmHg. There is no pulmonic regurgitation present. The aortic root size is normal. Normal inferior vena cava with normal inspiratory collapse consistent with estimated right atrial pre ssure of 5 mmHg. CONCLUSIONS -------- 1. Sinus rhythm. 2. This was a technically good study. 3. The left ventricular size is normal. 4. There is mild concentric left ventricular hypertrophy. 5. Overall left ventricular systolic function is normal with, an EF between 55 - 60 %. 6. The right ventricular wall thickness is normal measuring < 5mm. 7. Normal LA size by volume 22+/-6 ml/m2. 8. The right atrial size is normal. 9. The aortic valve was not well visualized. 10. The mitral valve leaflets are mildly thickened. 11. There is trace mitral regurgitation. 12. Trace tricuspid regurgitation present. 13. The right ventricular systolic pressure, as measured by Doppler, is 24.61mmHg. 14. There is no pulmonic regurgitation present. 15. The aortic root size is normal. 16. Normal inferior vena cava with normal inspiratory collapse consistent with estimated right atrial pressure of 5 mmHg. VIDEO CONTROL OPERATOR: Indiana Sprague RDCS
[2018-12-07 11:14] LABS: D-Dimer 1.32 mg/L FEU (<0.60); Partial Thromboplastin Time 60.9 sec (22.0-30.0)
[2018-12-07] MEDS: CARVEDILOL 12.5 MG TAB PO SCH (11:57)
[2018-12-07] MEDS: amLODIPine 5 MG TAB PO SCH (11:57)
[2018-12-07] MEDS: ASPIRIN 325 MG TAB PO SCH (11:57)
--- NOTE | 2018-12-07 13:57 | NM ---
EXAMINATION TYPE: NM pul vent and perfuse DATE OF EXAM: 12/07/2018 COMPARISON: Chest x-ray 12/06/2018 HISTORY: Elevated d-dimer, pulmonary embolism TECHNIQUE: Utilizing inhalation of 33 mCi Tc 99m DTPA aerosol and intravenous injection of 4.86 mCi of Tc 99m MAA, ventilation and perfusion images are acquired post injection in multiple projections. FINDINGS: Hyperinflation is compatible with underlying COPD. Central clumping of the radiopharmaceutical on vikas tilation imaging with patchy uptake also compatible with COPD. Overall perfusion uptake is improved a s compared to ventilation. No ventilation/perfusion mismatches. IMPRESSION: Low probability for pulmonary embolism.
[2018-12-07] MEDS: NICOTINE 14MG/24HR PATCH TRANSDERM SCH (14:00)
--- NOTE | 2018-12-07 14:06 | P.HPIM ---
History of Present Illness H&P Date: 12/07/18 This is a 68-year-old female patient of Dr. Watts with past medical history of hypertension, hypothyroidism, hyperlipidemia, irritable bowel syndrome, rheumatoid arthritis not seen by cfd engineer and not on medication, history of supraventricular tachycardia. Patient states that she had sudden onset of chest pain that radiated from the midsternal to the back that lasted for about 15 minutes. She denies ever having this pain before. She is not sure if she ever had a stress test in the past. She describes the pain as a burning type. She does not think it radiated to any other sites such as arm hand. Patient came into [facility] emergency center for evaluation. Patient was afebrile, initial blood pressure 152/90, heart rates in the 60s, CBC within normal limits, electrolytes within normal limits, BUN 11 creatinine 0.58, blood sugar 107. Liver function tests within normal limits, lipase 45, troponin 0.012. EKG is sinus rhythm with T-wave inversions. Patient was started on heparin drip and placed as an observation status on the selective stepdown unit. Patient has been subsequently seen by Dr. Lubin with plan for heart catheterization today. D-dimer came back positive at 1.36 and cardiology has ordered a pulmonary perfusion testing. Repeat troponins have been negative. Triglycerides 182, cholesterol 175, LDL 77, HDL 62. Echocardiogram reveals EF 55-60% with mild concentric left hypertrophy, trace mitral regurgitation, trace tricuspid regurgitation. Patient is currently without chest pain or shortness of breath. Review of Systems All systems: negative Constitutional: Denies anorexia, Denies chills, Denies fatigue, Denies fever, Denies lethargy, Denies malaise, Denies poor appetite, Denies weakness, Denies weight loss Eyes: denies blurred vision, denies pain Ears, nose, mouth and throat: Denies dental pain, Denies dysphagia, Denies headache, Denies mouth pain, Denies sore throat, Denies vertigo Cardiovascular: Reports chest pain, Denies lightheadedness, Denies shortness of breath, Denies syncope Respiratory: Denies cough, Denies cough with sputum, Denies dyspnea, Denies excessive sputum, Denies hemoptysis, Denies home oxygen, Denies wheezing Gastrointestinal: Denies abdominal pain, Denies diarrhea, Denies nausea, Denies vomiting Genitourinary: Denies dysuria, Denies hematuria Musculoskeletal: Denies frequent falls, Denies gait dysfunction, Denies muscle weakness, Denies myalgias Integumentary: Denies pruritus, Denies rash, Denies wounds Neurological: Denies aphasia, Denies change in mentation, Denies change in speech, Denies gait dysfunction, Denies numbness, Denies weakness Psychiatric: Denies anxiety, Denies depression Endocrine: Denies fatigue, Denies weight change Past Medical History Past Medical History: Hyperlipidemia, Hypertension, Rheumatoid Arthritis (RA), Supraventricular Tachycardia (SVT), Thyroid Disorder Additional Past Medical History / Comment(s): salivary gland stone-resolved, IBS History of Any Multi-Drug Resistant Organisms: MRSA, Other MDRO Date of last positivie culture/infection: 2006 MDRO Source:: abscess top of rt leg Past Surgical History: Appendectomy, Section, Cholecystectomy, Hysterectomy Past Anesthesia/Blood Transfusion Reactions: No Reported Reaction Past Psychological History: No Psychological Hx Reported Smoking Status: Current every day smoker Past Alcohol Use History: None Reported Additional Past Alcohol Use History / Comment(s): Patient is a smoker at least half pack per day for 35 or more years. She denies any marijuana or illicit drug use. No alcohol use. Patient lives at home with her . Past Drug Use History: None Reported Additional Drug Use History / Comment(s): uses cannibis oil for R/A. instructed not to use at least 24 hours prior to procedure - Past Family History Father Family Medical History: Cancer Additional Family Medical History / Comment(s): Father at age 51 from lung cancer with metastatic disease. Mother Additional Family Medical History / Comment(s): Mother at age 77 from old age but had history of rheumatoid arthritis. Brother(s) Additional Family Medical History / Comment(s): Patient had 1 brother that from complications of agent orange. Patient has 3 living siblings with no major medical problems. Daughter(s) Additional Family Medical History / Comment(s): Patient is 3 children with no major medical problems. Medications and Allergies Home Medications Medication Instructions Recorded Confirmed Type Levothyroxine Sodium [Synthroid] 75 mcg PO DAILY 04/13/17 12/06/18 History amLODIPine [Norvasc] 5 mg PO DAILY 04/13/17 12/06/18 History Carvedilol 12.5 mg PO DAILY 12/06/18 12/06/18 History Diphenoxylate HCl/Atropine 1 tab PO QID PRN 12/06/18 12/06/18 History [Lomotil 2.5-0.025 mg Tablet] Allergies Allergy/AdvReac Type Severity Reaction Status Date / Time adhesive tape Allergy Itching Verified 12/06/18 19:07 iodine Allergy Anaphylaxis Verified 12/06/18 19:07 latex Allergy Rash/Hives Verified 12/06/18 19:41 sulfamethoxazole Allergy Unknown Verified 12/06/18 19:41 [From Bactrim] trimethoprim [From Bactrim] Allergy Unknown Verified 12/06/18 19:41 STEROIDS AdvReac Uncoded 12/06/18 19:41 Physical Exam Vitals: Vital Signs Temp Pulse Pulse Resp BP BP Pulse Ox 12/07/18 11:45 18 12/07/18 08:00 98.1 F 58 L 18 173/85 92 L 12/07/18 04:00 98 F 65 18 148/70 95 12/07/18 02:28 97.6 F 61 18 155/71 93 L 12/07/18 02:00 57 L 15 113/62 94 L 12/07/18 01:30 59 L 20 105/67 94 L 12/07/18 01:08 58 L 22 105/67 94 L 12/07/18 00:30 61 23 136/92 12/07/18 00:22 60 23 136/92 95 12/07/18 00:00 60 24 129/80 95 12/06/18 23:30 64 21 127/67 95 12/06/18 23:00 64 18 142/88 94 L 12/06/18 22:30 69 21 145/85 94 L 12/06/18 22:00 60 22 151/97 96 12/06/18 21:30 66 17 149/94 95 12/06/18 21:00 63 20 148/94 94 L 12/06/18 20:30 60 22 135/82 94 L 12/06/18 20:00 64 14 162/95 93 L 12/06/18 19:05 98.4 F 63 18 152/90 96 Intake and Output 12/06/18 12/07/18 12/07/18 22:59 06:59 14:59 Intake Total 60.258 84.913 Balance 60.258 84.913 Intake: Intake, IV Titration 60.258 84.913 Amount Heparin Sod,Pork in 0.45% 60.258 84.913 NaCl 25,000 unit In 0.45 % NaCl 1 250ml.bag @ 12 UNITS/KG/HR 9.798 mls/hr IV .Q24H [facility] Rx#: [id number] Other: Voiding Method Toilet Toilet # Voids 1 2 Weight 81.647 kg 81.6 kg Gen: This is a 68-year-old female. She is resting in bed appears to be comfortable and in no acute distress. Multiple family members in the room. HEENT: Head is atraumatic, normocephalic. Pupils equal, round. Sclerae is anicteric. NECK: Supple. No JVD. No lymphadenopathy. No thyromegaly. LUNGS: Clear to auscultation. No wheezes or rhonchi. No intercostal re tractions. HEART: Regular rate and rhythm. No murmur. ABDOMEN: Soft. Bowel sounds are present. No masses. No tenderness. EXTREMITIES: No pedal edema. No calf tenderness. NEUROLOGICAL: Patient is awake, alert and oriented x3. Cranial nerves 2 through 12 are grossly intact. Results CBC & Chem 7: 12/06/18 19:40 12/06/18 19:40 Labs: Abnormal Lab Results - Last 24 Hours (Table) 12/06/18 12/07/18 12/07/18 Range/Units 19:40 03:45 10:25 APTT 60.9 H (22.0-30.0) sec D-Dimer 1.32 H (<0.60) mg/L FEU Glucose 107 H (74-99) mg/dL Triglycerides 182 H (<150) mg/dL HDL Cholesterol 62 H (40-60) mg/dL Thrombosis Risk Factor Assmnt - DVT/VTE Prophylaxis DVT/VTE Prophylaxis: Pharmacologic Prophylaxis ordered - Choose All That Apply Any of the Below Risk Factors Present?: Yes Each Factor Represents 1 point: Obesity (BMI >25) Other Risk Factors: Yes Each Risk Factor Represents 2 Points: Age 61-74 years Other congenital or acquired thrombophilia - If yes, enter type in comment: No Thrombosis Risk Factor Assessment Total Risk Factor Score: 3 Thrombosis Risk Factor Assessment Level: Moderate Risk Assessment and Plan Plan: 1. Chest pain with negative troponins and T-wave inversions. Cardiology consult appreciated. Patient's been on a heparin drip. Patient scheduled for heart catheterization. 2. Elevated d-dimer. VQ scan. Continue heparin drip 3. History of paroxysmal supraventricular tachycardia, stable. 4. Hypertension. Continue amlodipine 5 mg daily, Coreg 12.5 mg daily. 5. Hypothyroidism. Continue levothyroxine 75 g daily. TSH and free T4 ordered. 6. Rheumatoid arthritis not currently under treatment, stable. 7. Hyperlipidemia. 8. DVT prophylaxis. Heparin drip. 9. GI prophylaxis. Protonix. Patient will be admitted to the hospital for a minimum of 2 night stay. Discharge plan: Return home Impression and plan of care have been directed as dictated by the signing physician. Lore Wiggins nurse practitioner acting as scribe for signing physician.
[2018-12-07] MEDS ORDERED: SODIUM CHLORIDE 0.9% 1,000 ML in EMPTY BAG 1 BAG IV ONE (15:30)
[2018-12-07] MEDS ORDERED: ATORVASTATIN 80 MG TAB PO STA (15:30)
[2018-12-07] MEDS ORDERED: ALPRAZolam 0.5 MG TAB PO PRN (15:30)
[2018-12-07] MEDS ORDERED: ALPRAZolam 0.25 MG TAB PO PRN (15:30)
[2018-12-07] MEDS ORDERED: ONDANSETRON 4 MG/2 ML VIAL IVP STA (18:19)
[2018-12-07] MEDS: DICYCLOMINE 10 MG CAP PO PRN (18:47)
[2018-12-07] MEDS: HEPARIN SOD,PORK IN 0.45% NACL 25,000 UNIT in 0.45% NACL 1 250ML.BAG IV SCH (20:47)
[2018-12-07] MEDS ORDERED: predniSONE 50 MG TAB PO ONE (21:00)
[2018-12-08] MEDS ORDERED: predniSONE 50 MG TAB PO ONE ×2 (02:00→09:00)
[2018-12-08] MEDS ORDERED: ATORVASTATIN 80 MG TAB PO ONE (06:00)
[2018-12-08] MEDS: PANTOPRAZOLE 40 MG TABLET PO SCH (06:21)
[2018-12-08] MEDS: ASPIRIN 325 MG TAB PO SCH (06:21)
[2018-12-08] MEDS: LEVOTHYROXINE 75 MCG TAB PO SCH (06:21)
[2018-12-08] MEDS: CARVEDILOL 12.5 MG TAB PO SCH (06:21)
[2018-12-08] MEDS: amLODIPine 5 MG TAB PO SCH (06:21)
[2018-12-08] MEDS ORDERED: diphenhydrAMINE 50 MG CAP PO ONE (09:00)
[2018-12-08] MEDS: NICOTINE 14MG/24HR PATCH TRANSDERM SCH (09:14)
[2018-12-08] MEDS ORDERED: SODIUM CHLORIDE 0.9% 900 ML IV ONE (10:08)
[2018-12-08] MEDS: MIDAZOLAM (PF) 2 MG/2 ML VIAL IVP ONE ×3 (10:13→11:08)
[2018-12-08] MEDS ORDERED: LIDOCAINE 1% INJ 10MG/ML (20 ML MDV) SQ ONE ×2 (10:15→10:22)
[2018-12-08] MEDS ORDERED: fentaNYL (PF) 50 MCG/ML 2 ML AMP IVP ONE (10:25)
--- NOTE | 2018-12-08 10:59 | CC ---
CARDIAC CATHETERIZATION REPORT INDICATION: Unstable angina. PROCEDURE NOTE: After obtaining informed consent, left heart catheterization and coronary angiogram were performed via the left femoral artery using standard Esau catheters. Patient tolerated the procedure well without any immediate complications. I initially attempted vascular access on the right side. After 2 attempts, I could not pass the Glidewire across the iliacs, hence, I decided to proceed on the left side. The patient has a small hematoma of the right groin. Her pulses are intact and she does not have any symptoms, otherwise. Patient received moderate conscious sedation. Total sedation time was 26 minutes. FINDINGS: HEMODYNAMICS: Left ventricular end-diastolic pressure is 14-16 mm. There is no significant gradient across aortic valve. LEFT VENTRICULOGRAM: Left ventriculogram is not performed. ANGIOGRAPHIC DATA: LEFT MAIN CORONARY ARTERY: Left main coronary artery is a normal-sized vessel and is free of stenosis. Divides into left anterior descending coronary artery and circumflex coronary artery. The vessels appear calcified. There is a moderate atherosclerotic plaque in mid LAD. Circumflex coronary artery and its branches are free of significant stenosis. Right coronary artery is a large dominant vessel, shows a 70% to 80% stenosis midportion. CONCLUSIONS: A 70%-80% stenosis involving mid right coronary artery. PLAN: I am going to review angiographic data with Dr. Encarnacion the on-call top former and will probably proceed with stenting of the mid RCA. MMODL / IJN: [id number] /
[2018-12-08] MEDS ORDERED: BIVALIRUDIN BOLUS 250 MG/50 ML IV ONE ×2 (11:09)
[2018-12-08] MEDS ORDERED: BIVALIRUDIN 250 MG in SODIUM CHLORIDE 0.9% 50 ML IV ONE (11:13)
[2018-12-08] MEDS ORDERED: CLOPIDOGREL 75 MG TAB PO ONE (11:17)
[2018-12-08] MEDS ORDERED: IOPAMIDOL-370 100ML BTL INJ ONE (11:18)
[2018-12-08] MEDS ORDERED: RX INFO: IV CONTRAST WAS GIVEN 1 EACH MISC MISCELLANE PRN (11:21)
[2018-12-08] MEDS ORDERED: MAG HYDROX/AL HYDROX/SIMETH 30 ML CUP PO PRN (11:21)
[2018-12-08] MEDS ORDERED: ATROPINE SULFATE 0.1 MG/ML 10ML SYRINGE IV PRN (11:21)
[2018-12-08] MEDS: SODIUM CHLORIDE 0.9% 1,000 ML IV SCH (12:07)
--- NOTE | 2018-12-08 12:56 | PTCA ---
PERCUTANEOUSTRANS CORORONARY ANGIOGRAPHY DATE OF SERVICE: 12/08/2018 PERFORMING PHYSICIAN: Hair Encarnacion MD, [employer]illery [employer]eorological [employer]. PROCEDURE PERFORMED: Successful stenting of the mid RCA using 5.0 x 13 mm ultra multilink bare metal stent with an excellent angiographic results and reduction of stenosis from 70% to 0%. INDICATION: This is a 68-year-old female patient who presented to the hospital with chest discomfort and abnormal EKG concerning for ischemia. She underwent heart catheterization by Dr. Lubin and was found to have severe disease involving the mid RCA. APPROACH: Left common femoral artery. COMPLICATION: None. LEVEL OF SEDATION: Moderate with sedation length of 13 minutes. PROCEDURE DESCRIPTION: Please refer to diagnostic heart catheterization that was performed by Dr. Lubin. Anticoagulation was initiated using Angiomax. Subsequently, I did engage the RCA using JR4 guide. The run-through wire was used to wire the right coronary artery. I did balloon angioplasty using 4.0 x 12 mm balloon before I deployed 5.0 x 13 mm ultra multilink mm stent where the stent was positioned under fluoroscopy guidance and deployed under 16 atmospheres of seconds with the following angiogram showing excellent angiographic results. The procedure was completed without any complication. POSTPROCEDURE MANAGEMENT: 1. Dual anti-platelet therapy. 2. Risk factor modifications. 3. Follow up with the patient. MMODL / IJN: [id number] /
[2018-12-08 13:38] VITALS: BMI 29.2
--- NOTE | 2018-12-08 14:22 | P.PN ---
Subjective Progress Note Date: 12/08/18 Principal diagnosis: Unstable angina, acute non-ST SD with elevated troponin, history of paroxysmal supraventricular tachycardia, hypertension, hyperlipidemia, COPD with chronic sm oking. This is a 68-year-old female patient of Dr. Watts with past medical history of hypertension, hypothyroidism, hyperlipidemia, irritable bowel syndrome, rheumatoid arthritis not seen by feed manager and not on medication, history of supraventricular tachycardia. Patient states that she had sudden onset of chest pain that radiated from the midsternal to the back that lasted for about 15 minutes. She denies ever having this pain before. She is not sure if she ever had a stress test in the past. She describes the pain as a burning type. She does not think it radiated to any other sites such as arm hand. Patient came into [facility] emergency center for evaluation. Patient was afebrile, initial blood pressure 152/90, heart rates in the 60s, CBC within normal limits, electrolytes within normal limits, BUN 11 creatinine 0.58, blood sugar 107. Liver function tests within normal limits, lipase 45, troponin 0.012. EKG is sinus rhythm with T-wave inversions. Patient was started on heparin drip and placed as an observation status on the selective stepdown unit. Patient has been subsequently seen by Dr. Lubin with plan for heart catheteriza tion today. D-dimer came back positive at 1.36 and cardiology has ordered a pulmonary perfusion testing. Repeat troponins have been negative. Triglycerides 182, cholesterol 175, LDL 77, HDL 62. Echocardiogram reveals EF 55-60% with mild concentric left hypertrophy, trace mitral regurgitation, trace tricuspid regurgitation. Patient is currently without chest pain or shortness of breath. 12/08: Elevated troponin with her current history patient ended up going to the landscape and yardwork laborer found significant RCA stenosis, patient ended up having an angioplasty and stent placement with Dr. Encarnacion successfully was started on secondary prevention. Objective - Vital Signs Vital signs: Vital Signs Temp 98.0 F 12/08/18 08:00 Pulse 70 12/08/18 14:04 Resp 16 12/08/18 14:04 BP 128/75 12/08/18 14:04 Pulse Ox 94 L 12/08/18 14:04 Intake & Output 12/07/18 12/08/18 12/08/18 18:59 06:59 18:59 Intake Total 414.913 760.829 520 Balance 414.913 760.829 520 Weight 84.9 kg 84.9 kg Intake: IV 340 Intake, IV Titration 84.913 760.829 Amount Heparin Sod,Pork in 0.45% 84.913 104.829 NaCl 25,000 unit In 0.45 % NaCl 1 250ml.bag @ 12 UNITS/KG/HR 9.798 mls/hr IV .Q24H [facility] Rx#: [id number] Sodium Chloride 0.9% 1, 656 000 ml In Empty Bag 1 bag @ 1 ML/KG/HR 81.6 mls/hr IV .[id number] ONE Rx#: [id number] Oral 330 180 Other: Voiding Method Toilet Toilet Toilet # Voids 2 2 1 - Exam Review of Systems All systems: negative Constitutional: Denies anorexia, Denies chills, Denies fatigue, Denies fever, Denies lethargy, Denies malaise, Denies poor appetite, Denies weakness, Denies weight loss Eyes: denies blurred vision, denies pain Ears, nose, mouth and throat: Denies dental pain, Denies dysphagia, Denies headache, Denies mouth pain, Denies sore throat, Denies vertigo Cardiovascular: Reports chest pain, Denies lightheadedness, Denies shortness of breath, Denies syncope Respiratory: Denies cough, Denies cough with sputum, Denies dyspnea, Denies excessive sputum, Denies hemoptysis, Denies home oxygen, Denies wheezing Gastrointestinal: Denies abdominal pain, Denies diarrhea, Denies nausea, Denies vomiting Genitourinary: Denies dysuria, Denies hematuria Musculoskeletal: Denies frequent falls, Denies gait dysfunction, Denies muscle weakness, Denies myalgias Integumentary: Denies pruritus, Denies rash, Denies wounds Neurological: Denies aphasia, Denies change in mentation, Denies change in speech, Denies gait dysfunction, Denies numbness, Denies weakness Psychiatric: Denies anxiety, Denies depression Endocrine: Denies fatigue, Denies weight change Physical examination: General Appearance: Alert, cooperative, no distress, appears stated age. Neck HEENT: Supple, no lymphadenopathy, no thyroid enlargement, no carotid bruits. Lungs: Decreased was somewhat odd with fine rhonchi or wheezes. Chest Wall: Chest wall normal expansion with deep inspiration no tenderness and no deformity was found on exam, no costochondral pain or discomfort. Heart: Regular rate and rhythm, S1, S2 normal, no murmur, rub or gallop. Back: Symmetric, no curvature, ROM normal, no CVA tenderness. Abdomen: Soft, non-tender, bowel sounds active all four quadrants, no masses, no organomegaly. Extremities: Extremities normal, atraumatic, no cyanosis or edema. Left groin sheath from the heart catheter still in there is no bleeding, right groin has attempt heart cath with no bleeding or sign of infection or induration. Pulses: 2+ and symmetric. Skin: Skin color, texture, tugor normal, no rashes or lesions. Neurologic: Alert oriented x3 cranial nerves II through XII intact, no motor de ficit, no abnormal balance or gait. - Labs CBC & Chem 7: 12/06/18 19:40 12/06/18 19:40 Labs: Abnormal Lab Results - Last 24 Hours (Table) 12/08/18 Range/Units 07:58 APTT 65.7 H (22.0-30.0) sec Assessment and Plan Plan: 1 non-ST SD: Patient ended up before heart cath and end up having angioplasty of the right coronary artery successfully will continue secondary prevention. 2 unstable angina: With secondary subacute occlusion of the right coronary artery. 3 history of paroxysmal supraventricular tachycardia: Remain on smaller dose of Coreg doing well. 4 hypertension: Remain on amlodipine, Coreg and will add lisinopril. 5 hypothyroidism: Remain on levothyroxine 75 g daily. 6 hyperlipidemia: Patient was started on atorvastatin 80 mg daily. 7 mild COPD: [place] continue DuoNeb and O2 as needed. 8 history of rheumatoid arthritis: Not using any medication currently. 9 nicotine dependency: Remain on nicotine patch 14 mg daily. CODE STATUS: Full code. Anticipated discharge: Most likely tomorrow.
[2018-12-08] MEDS ORDERED: Acetaminophen-Codeine 300-30mg TAB PO PRN (16:04)
[2018-12-08] MEDS ORDERED: ATORVASTATIN 80 MG TAB PO SCH (21:00)
[2018-12-09 06:02] VITALS: TEMP 97
[2018-12-09] MEDS: PANTOPRAZOLE 40 MG TABLET PO SCH (06:11)
[2018-12-09] MEDS: LEVOTHYROXINE 75 MCG TAB PO SCH (06:11)
[2018-12-09] MEDS: SODIUM CHLORIDE 0.9% 1,000 ML IV SCH (06:12)
[2018-12-09 07:00] LABS: Basophils # (A) 0.1 k/uL (0-0.2); Basophils % (A) 0 %; Eosinophils # (A) 0.1 k/uL (0-0.7); Eosinophils % (A) 0 %; HCT 42.5 % (34.0-46.0); HGB 13.6 gm/dL (11.4-16.0); Lymphocytes % (A) 23 %; MCV 90.7 fL (80.0-100.0); Mean Platelet Volume 7.7; Monocytes # (A) 0.7 k/uL (0-1.0); Monocytes % (A) 5 %; Neutrophils # (A) 9.3 k/uL (1.3-7.7); Neutrophils % (A) 70 %; Platelet Count 251 k/uL (150-450); RBC 4.69 m/uL (3.80-5.40); RDW 13.8 % (11.5-15.5); WBC 13.3 k/uL (3.8-10.6)
[2018-12-09 07:16] LABS: Anion Gap 6 mmol/L; Blood Urea Nitrogen 14 mg/dL (7-17); Calcium 9.1 mg/dL (8.4-10.2); Carbon Dioxide 30 mmol/L (22-30); Chloride 108 mmol/L (98-107); Glucose 113 mg/dL (74-99); Potassium 3.9 mmol/L (3.5-5.1); Sodium 144 mmol/L (137-145)
[2018-12-09] MEDS: amLODIPine 5 MG TAB PO SCH (07:56)
[2018-12-09] MEDS: CARVEDILOL 12.5 MG TAB PO SCH (07:56)
[2018-12-09] MEDS: NICOTINE 14MG/24HR PATCH TRANSDERM SCH (07:56)
[2018-12-09] MEDS: ASPIRIN 325 MG TAB PO SCH (07:56)
[2018-12-09] MEDS: DICYCLOMINE 10 MG CAP PO PRN (08:10)
[2018-12-09] MEDS ORDERED: CLOPIDOGREL 75 MG TAB PO SCH (09:00)
[2018-12-09 09:04] VITALS: BP 118/57; PULSE 65; RESP 14
--- NOTE | 2018-12-09 09:53 | P.DS ---
Providers Date of admission: 12/08/18 08:50 Attending physician: Rudy Emery Consults: 12/06/18 21:22 Consult Physician Urgent Consulting Provider: Arnaldo Arambula Consult Reason/Comments: chest pain Do you want consulting provider notified?: Yes 12/08/18 11:21 Consult Physician Routine Consulting Provider: [facility] Consult Reason/Comments: Post Interventional patient Do you want consulting provider notified?: Already Contacted Primary care physician: Jeramie Watts [facility] Course: Unstable angina, acute non-ST RI with elevated troponin, history of paroxysmal supraventricular tachycardia, hypertension, hyperlipidemia, COPD with chronic smoking. Post PCI and stent placement of the RCA. This is a 68-year-old female patient of Dr. 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 Patient states that she had sudden onset of chest pain that radiated from the midsternal to the back that lasted for about 15 minutes. She denies ever having this pain before. She is not sure if she ever had a stress test in the past. She describes the pain as a burning type. She does not think it radiated to any other sites such as arm hand. Patient came into [facility] emergency center for evaluation. Patient was afebrile, initial blood pressure 152/90, heart rates in the 60s, CBC within normal limits, electrolytes within normal limits, BUN 11 creatinine 0.58, blood sugar 107. Liver function tests within normal limits, lipase 45, troponin 0.012. EKG is sinus rhythm with T-wave inversions. Patient was started on heparin drip and placed as an observation status on the selective stepdown unit. Patient has been subsequently seen by Dr. Lubin with plan for heart catheterization today. D-dimer came back positive at 1.36 and cardiology has ordered a pulmonary perfusion testing. Repeat troponins have been negative. Triglycerides 182, cholesterol 175, LDL 77, HDL 62. Echocardiogram reveals EF 55-60% with mild concentric left hypertrophy, trace mitral regurgitation, trace tricuspid regurgitation. Patient is currently without chest pain or shortness of breath. 12/08: Elevated troponin with her current history patient ended up going to the cath lab manager found significant RCA stenosis, patient ended up having an angioplasty and stent placement with Dr. Encarnacion successfully was started on secondary prevention. 12/09: Patient is doing very well the left the groin have significant hematoma from the heart cath site otherwise patient has done very well and was cleared by cardiology for discharge medication were finalized patient will be leaving today. - Exam Review of Systems All systems: negative Constitutional: Denies anorexia, Denies chills, Denies fatigue, Denies fever, Denies lethargy, Denies malaise, Denies poor appetite, Denies weakness, Denies weight loss Eyes: denies blurred vision, denies pain Ears, nose, mouth and throat: Denies dental pain, Denies dysphagia, Denies headache, Denies mouth pain, Denies sore throat, Denies vertigo Cardiovascular: Reports chest pain, Denies lightheadedness, Denies shortness of breath, Denies syncope Respiratory: Denies cough, Denies cough with sputum, Denies dyspnea, Denies excessive sputum, Denies hemoptysis, Denies home oxygen, Denies wheezing Gastrointestinal: Denies abdominal pain, Denies diarrhea, Denies nausea, Denies vomiting Genitourinary: Denies dysuria, Denies hematuria Musculoskeletal: Denies frequent falls, Denies gait dysfunction, Denies muscle weakness, Denies myalgias Integumentary: Denies pruritus, Denies rash, Denies wounds Neurological: Denies aphasia, Denies change in mentation, Denies change in speech, Denies gait dysfunction, Denies numbness, Denies weakness Psychiatric: Denies anxiety, Denies depression Endocrine: Denies fatigue, Denies weight change Physical examination: General Appearance: Alert, cooperative, no distress, appears stated age. Neck HEENT: Supple, no lymphadenopathy, no thyroid enlargement, no carotid bruits. Lungs: Decreased was somewhat odd with fine rhonchi or wheezes. Chest Wall: Chest wall normal expansion with deep inspiration no tenderness and no deformity was found on exam, no costochondral pain or discomfort. Heart: Regular rate and rhythm, S1, S2 normal, no murmur, rub or gallop. Back: Symmetric, no curvature, ROM normal, no CVA tenderness. Abdomen: Soft, non-tender, bowel sounds active all four quadrants, no masses, no organomegaly. Extremities: Extremities normal, atraumatic, no cyanosis or edema. Left groin sheath from the heart catheter still in there is no bleeding, right groin has attempt heart cath with no bleeding or sign of infection or induration. Pulses: 2+ and symmetric. Skin: Skin color, texture, tugor normal, no rashes or lesions. Neurologic: Alert oriented x3 cranial nerves II through XII intact, no motor deficit, no abnormal balance or gait. Assessment and Plan Plan: 1 non-ST RI: Patient ended up before heart cath and end up having angioplasty of the right coronary artery successfully will continue secondary prevention. 2 post PCI and stent placement of the right coronary artery: Patient is doing very well started on secondary prevention beside the left groin hematoma there is no complication currently, echocardiogram still shows good ejection fraction. 3 history of paroxysmal supraventricular tachycardia: Remain on smaller dose of Coreg doing well. 4 hypertension: Remain on amlodipine, Coreg and will add lisinopril. 5 hypothyroidism: Remain on levothyroxine 75 g daily. 6 hyperlipidemia: Patient was started on atorvastatin 80 mg daily. 7 mild COPD: continue DuoNeb and O2 as needed. 8 history of rheumatoid arthritis: Not using any medication currently. 9 nicotine dependency: Remain on nicotine patch 14 mg daily. Discharge planning: Patient is ready to be discharged home today was cleared by cardiology as well. Patient Condition at Discharge: Fair Plan - Discharge Summary New Discharge Prescriptions: New Aspirin 325 mg PO DAILY #30 tab Nicotine 14Mg/24Hr Patch [Habitrol] 1 patch TRANSDERM DAILY #30 patch Atorvastatin [Lipitor] 80 mg PO HS #30 tab Nitroglycerin Sl Tabs [Nitrostat] 0.4 mg SUBLINGUAL Q5M PRN #25 tab PRN Reason: Chest Pain Clopidogrel [Plavix] 75 mg PO DAILY #30 tab Continue amLODIPine [Norvasc] 5 mg PO DAILY Levothyroxine Sodium [Synthroid] 75 mcg PO DAILY Diphenoxylate HCl/Atropine [Lomotil 2.5-0.025 mg Tablet] 1 tab PO QID PRN PRN Reason: IBS Carvedilol 12.5 mg PO DAILY Discharge Medication List Levothyroxine Sodium [Synthroid] 75 mcg PO DAILY 04/13/17 [History] amLODIPine [Norvasc] 5 mg PO DAILY 04/13/17 [History] Carvedilol 12.5 mg PO DAILY 12/06/18 [History] Diphenoxylate HCl/Atropine [Lomotil 2.5-0.025 mg Tablet] 1 tab PO QID PRN 12/06/18 [History] Aspirin 325 mg PO DAILY #30 tab 12/09/18 [Rx] Atorvastatin [Lipitor] 80 mg PO HS #30 tab 12/09/18 [Rx] Clopidogrel [Plavix] 75 mg PO DAILY #30 tab 12/09/18 [Rx] Nicotine 14Mg/24Hr Patch [Habitrol] 1 patch TRANSDERM DAILY #30 patch 12/09/18 [Rx] Nitroglycerin Sl Tabs [Nitrostat] 0.4 mg SUBLINGUAL Q5M PRN #25 tab 12/09/18 [Rx] Follow up Appointment(s)/Referral(s): Jeramie Watts DO [Primary Care Provider] - 1-2 days Cristian Lubin MD [STAFF PHYSICIAN] - 1 Week Patient Instructions/Handouts: Chest Pain (DC), Heart Catheterization (DC) Discharge Disposition: HOME SELF-CARE
[2018-12-09] MEDS: HEPARIN SOD,PORK IN 0.45% NACL 25,000 UNIT in 0.45% NACL 1 250ML.BAG IV SCH (10:23)
--- NOTE | 2018-12-09 11:22 | P.PN ---
Subjective Progress Note Date: 12/09/18 This is a 68-year-old female patient of Dr. Watts with past medical history of hypertension, hypothyroidism, hyperlipidemia, irritable bowel syndrome, rheumatoid arthritis not seen by cavalry officer and not on medication, history of supraventricular tachycardia. Patient states that she had sudden onset of chest pain that radiated from the midsternal to the back that lasted for about 15 minutes. patient admitted seen in consultation by Dr. Wright and recommended to undergo cardiac catheterization which was performed yesterday. Subsequent to that patient underwent angioplasty and stenting of the mid right coronary artery. EKG from this morning showed a normal sinus rhythm with no ch anges from post-PCI. Hemodynamically stable. White blood cell count 13.3, hemoglobin 13.6, platelet count 251. Sodium 144, potassium 3.9, BUN 14 and creatinine 0.7. Objective - Vital Signs Vital signs: Vital Signs Temp 97.0 F L 12/09/18 07:28 Pulse 65 12/09/18 08:00 Resp 14 12/09/18 08:00 BP 118/57 12/09/18 07:28 Pulse Ox 95 12/09/18 07:28 Intake & Output 12/08/18 12/09/18 12/09/18 18:59 06:59 18:59 Intake Total 1060 240 Balance 1060 240 Weight 84.9 kg 86.3 kg Intake: IV 340 Intake, IV Titration 300 Amount Sodium Chloride 0.9% 1, 300 000 ml @ 75 mls/hr IV . [id number] [facility] Rx#:[id number] Oral 420 240 Other: Voiding Method Toilet Toilet Toilet # Voids 1 1 - Exam HEENT: Head is atraumatic, normocephalic. Pupils equal, round. Sclerae is anicteric. NECK: Supple. No JVD. No lymphadenopathy. No thyromegaly. LUNGS: Clear to auscultation. No wheezes or rhonchi. No intercostal retractions. HEART: Regular rate and rhythm. No murmur. ABDOMEN: Soft. Bowel sounds are present. No masses. No tenderness. EXTREMITIES: No pedal edema. No calf tenderness.right groin no hematoma, left groin is quite ecchymotic, soft, no bruit NEUROLOGICAL: Patient is awake, alert and oriented x3. Cranial nerves 2 through 12 are grossly intact. - Labs CBC & Chem 7: 12/09/18 06:43 12/09/18 06:43 Labs: Abnormal Lab Results - Last 24 Hours (Table) 12/09/18 12/09/18 Range/Units 06:43 06:43 WBC 13.3 H (3.8-10.6) k/uL Neutrophils # 9.3 H (1.3-7.7) k/uL Chloride 108 H (98-107) mmol/L Glucose 113 H (74-99) mg/dL Assessment and Plan Plan: assessment and plan #1 chest pain status post angioplasty and stenting of the right coronary artery #2 history of paroxysmal supraventricular tachycardia, stable #3 hypertension #4 hyperlipidemia #5 hypothyroidism #6 rheumatoid arthritis Plan From cardiology's perspective, patient may be able to be discharged home today. We'll make her a follow-up appointment to see Dr. Lubin in the office one week post discharge.patient will be discharged home on Norvasc 5 mg daily, Ecotrin 325 mg daily, Lipitor 80 mg daily, Coreg 12-1/2 mg one tablet by mouth daily.Plavix 75 mg daily,sublingual nitroglycerin and a nicotine patch. DNP note has been reviewed, I agree with a documented findings and plan of care. Patient was seen and examined.
== END 2018-12-09 11:16 | disposition home or self-care (01) | DRG 249 ==
LOC: EC 18:53 → 3SCARD 12-07 → OBSVTOIN 12-08 08:50
PROVIDERS: ADMIT Internal Medicine Geriatric Medicine; ATTEND Internal Medicine Geriatric Medicine
PROC: B2111ZZ Fluoroscopy of Multiple Coronary Arteries using Low Osmolar Contrast (ICD-10-PCS; 2018-12-08)
PROC: 02703DZ Dilation of Coronary Artery, One Artery with Intraluminal Device, Percutaneous Approach (ICD-10-PCS; principal; 2018-12-08 10:00)
PROC: 4A023N7 Measurement of Cardiac Sampling and Pressure, Left Heart, Percutaneous Approach (ICD-10-PCS; 2018-12-08 10:00)
DX: I21.4 Non-ST elevation (NSTEMI) myocardial infarction (principal); I47.1 Supraventricular tachycardia; E78.5 Hyperlipidemia, unspecified; J44.9 Chronic obstructive pulmonary disease, unspecified; E03.9 Hypothyroidism, unspecified; K58.9 Irritable bowel syndrome, unspecified; F17.200 Nicotine dependence, unspecified, uncomplicated; I11.9 Hypertensive heart disease without heart failure; I08.1 Rheumatic disorders of both mitral and tricuspid valves; I25.10 Atherosclerotic heart disease of native coronary artery without angina pectoris; R79.1 Abnormal coagulation profile; M06.9 Rheumatoid arthritis, unspecified; Z79.890 Hormone replacement therapy; Z79.899 Other long term (current) drug therapy; Z86.14 Personal history of Methicillin resistant Staphylococcus aureus infection; Z90.49 Acquired absence of other specified parts of digestive tract; Z90.710 Acquired absence of both cervix and uterus; Z91.040 Latex allergy status; Z88.2 Allergy status to sulfonamides; Z88.8 Allergy status to other drugs, medicaments and biological substances; Z91.048 Other nonmedicinal substance allergy status; Z91.041 Radiographic dye allergy status; Z82.49 Family history of ischemic heart disease and other diseases of the circulatory system; Z80.1 Family history of malignant neoplasm of trachea, bronchus and lung; Z82.61 Family history of arthritis
CPT/HCPCS: 36415; 71046; 78582; 80048; 80053; 80061; 83690; 83735; 84443; 84484; 85025; 85379; 85610; 85730; 92928; 93005; 93306; 93458; 96365; 96366; 96376; 99285

== ENCOUNTER 2019-01-10 14:10 | Observation (INO) | payer MEDICARE ==
[2019-01-10 16:02] LABS: Basophils # (A) 0.1 k/uL (0-0.2); Basophils % (A) 1 %; Eosinophils # (A) 0.3 k/uL (0-0.7); Eosinophils % (A) 5 %; HCT 36.8 % (34.0-46.0); Lymphocytes # (A) 1.6 k/uL (1.0-4.8); Lymphocytes % (A) 24 %; MCH 29.6 pg (25.0-35.0); MCHC 32.6 g/dL (31.0-37.0); MCV 90.9 fL (80.0-100.0); Mean Platelet Volume 7.5; Monocytes # (A) 0.5 k/uL (0-1.0); Monocytes % (A) 8 %; Neutrophils # (A) 3.8 k/uL (1.3-7.7); Neutrophils % (A) 59 %; Platelet Count 199 k/uL (150-450); RBC 4.05 m/uL (3.80-5.40); RDW 13.9 % (11.5-15.5); WBC 6.4 k/uL (3.8-10.6)
--- NOTE | 2019-01-10 16:04 | ED ---
General Adult HPI - General Source: patient Mode of arrival: wheelchair Limitations: no limitations <SuchinmayClifford Ming - Last Filed: 01/10/19 16:54> <PhillpiMike - Last Filed: 01/10/19 18:46> - General Chief complaint: Recheck/Abnormal Lab/Rx Stated complaint: Poss blood clot, SOB Time Seen by Provider: 01/10/19 15:25 - History of Present Illness Initial comments: Dictation was produced using [employer] dictation software. please excuse any grammatical, word or spelling errors. Chief Complaint: 68-year-old female sent in by judo teacher for elevated d- dimer. History of Present Illness: 68-year-old female sent in by judo teacher for elevated d-dimer. She was seen by her judo teacher today. She had EKG and the d-dimer test performed. She is told to come to the emergency department for elevated result. Patient states she's been short of breath the last 2-3 days. She states that is worse with exertion. Patient denies any history of blood clots. She has been evaluated for blood clots in the past. In November 2018 she had a pulmonary perfusion study that showed low probability for pulmonary embolism. 3 that same visit patient had a cardiac catheterization. He received a stent at that time. Patient reports that her symptoms have been slightly worse over the last 2-3 days per she denies any chest pain. Denies any lower extremity symptoms. Denies any history of blood clots. The ROS documented in this emergency department record has been reviewed and confirmed by me. Those systems with pertinent positive or negative responses have been documented in the HPI. All other systems are other negative and/or noncontributory. PHYSICAL EXAM: General Impression: Alert and oriented x3, not in acute distress HEENT: Normocephalic atraumatic, extra-ocular movements intact, pupils equal and reactive to light bilaterally, mucous membranes moist. Cardiovascular: Heart regular rate and rhythm, S1&S2 audible, no murmurs, rubs or gallops Chest: Lungs clear to auscultation bilaterally, no rhonchi, no wheeze, no rales Abdomen: Bowel sounds present, abdomen soft, non-tender, non-distended, no organomegaly Musculoskeletal: Pulses present and equal in all extremities, no peripheral edema Motor: no focal deficits noted Neurological: CN II-XII grossly intact, no focal motor or sensory deficits noted Skin: Intact with no visualized rashes Psych: Normal affect and mood ED course:68-year-old female presents to emergency Department from judo teacher's office for elevated d-dimer. Vital signs upon arrival are within acceptable limits. Physical examination is benign at this time.Laboratory evaluation obtained. CBC, coag panel, metabolic panels obtained unremarkable. Prematurity peptide negative. Cardiac enzymes negative. Patient is well- appearing with stable vital signs per she is not hypoxic or tachycardic. EKG is unchanged from recently. Patient care is signed out to Dr. Garcia following CT angios of the chest results. EKG interpretation: Ventricular rate 60, normal sinus rhythm,. Interval 136, QS 82, QTc 464. No KS prolongation, no QTC prolongation, there appears to be persistent T-wave inversions in the high lateral leads and lateral precordial leads. (Clifford Chance) - Related Data Home Medications Medication Instructions Recorded Confirmed Levothyroxine Sodium [Synthroid] 75 mcg PO DAILY 04/13/17 01/10/19 Carvedilol [Coreg] 3.125 mg PO BID 01/10/19 01/10/19 Previous Rx's Medication Instructions Recorded Aspirin 325 mg PO DAILY #30 tab 12/09/18 Atorvastatin [Lipitor] 80 mg PO HS #30 tab 12/09/18 Clopidogrel [Plavix] 75 mg PO DAILY #30 tab 12/09/18 Nitroglycerin Sl Tabs [Nitrostat] 0.4 mg SUBLINGUAL Q5M PRN #25 tab 12/09/18 Allergies Allergy/AdvReac Type Severity Reaction Status Date / Time adhesive tape Allergy Itching Verified 01/10/19 16:09 iodine Allergy Anaphylaxis Verified 01/10/19 16:09 latex Allergy Rash/Hives Verified 01/10/19 16:09 sulfamethoxazole Allergy Unknown Verified 01/10/19 16:09 [From Bactrim] trimethoprim [From Bactrim] Allergy Unknown Verified 01/10/19 16:09 STEROIDS AdvReac Unknown Uncoded 01/10/19 14:30 Review of Systems ROS Other: All systems not noted in ROS Statement are negative. <Clifford Chance - Last Filed: 01/10/19 16:54> ROS Other: All systems not noted in ROS Statement are negative. <Mike Phillip - Last Filed: 01/10/19 18:46> ROS Statement: Those systems with pertinent positive or pertinent negative responses have been documented in the HPI. Past Medical History Past Medical History: Hyperlipidemia, Hypertension, Rheumatoid Arthritis (RA), Supraventricular Tachycardia (SVT), Thyroid Disorder Additional Past Medical History / Comment(s): salivary gland stone-resolved, IBS History of Any Multi-Drug Resistant Organisms: MRSA, Other MDRO Date of last positivie culture/infection: 2006 MDRO Source:: abscess top of rt leg Past Surgical History: Appendectomy, Section, Cholecystectomy, Heart Catheterization With Stent, Hysterectomy Past Anesthesia/Blood Transfusion Reactions: No Reported Reaction Past Psychological History: No Psychological Hx Reported Smoking Status: Current every day smoker Past Alcohol Use History: None Reported Past Drug Use History: None Reported - Past Family History Father Family Medical History: Cancer Additional Family Medical History / Comment(s): Father at age 51 from lung cancer with metastatic disease. Mother Additional Family Medical History / Comment(s): Mother at age 77 from old age but had history of rheumatoid arthritis. Brother(s) Additional Family Medical History / Comment(s): Patient had 1 brother that from complications of agent orange. Patient has 3 living siblings with no major medical problems. Daughter(s) Additional Family Medical History / Comment(s): Patient is 3 children with no major medical problems. <Clifford Chance - Last Filed: 01/10/19 16:54> General Exam Limitations: no limitations <Clifford Chance - Last Filed: 01/10/19 16:54> Course Vital Signs 01/10/19 01/10/19 01/10/19 14:27 15:52 17:00 Temperature 98.1 F Pulse Rate 63 60 63 Respiratory 20 16 Rate Blood Pressure 157/82 124/82 113/84 O2 Sat by Pulse 97 97 Oximetry 01/10/19 18:25 Temperature Pulse Rate 60 Respiratory 16 Rate Blood Pressure 160/82 O2 Sat by Pulse 94 L Oximetry Medical Decision Making - Lab Data Result diagrams: 01/10/19 15:47 01/10/19 15:47 <Clifford Chance - Last Filed: 01/10/19 16:54> - Lab Data Result diagrams: 01/10/19 15:47 01/10/19 15:47 <Mike Phillip - Last Filed: 01/10/19 18:46> - Medical Decision Making CT of the chest showed no acute abnormality (Mike Phillip) - Lab Data Lab Results 01/10/19 01/10/19 01/10/19 Range/Units 15:47 15:47 15:47 WBC 6.4 (3.8-10.6) k/uL RBC 4.05 (3.80-5.40) m/uL Hgb 12.0 (11.4-16.0) gm/dL Hct 36.8 (34.0-46.0) % MCV 90.9 (80.0-100.0) fL MCH 29.6 (25.0-35.0) pg MCHC 32.6 (31.0-37.0) g/dL RDW 13.9 (11.5-15.5) % Plt Count 199 (150-450) k/uL Neutrophils % 59 % Lymphocytes % 24 % Monocytes % 8 % Eosinophils % 5 % Basophils % 1 % Neutrophils # 3.8 (1.3-7.7) k/uL Lymphocytes # 1.6 (1.0-4.8) k/uL Monocytes # 0.5 (0-1.0) k/uL Eosinophils # 0.3 (0-0.7) k/uL Basophils # 0.1 (0-0.2) k/uL PT (9.0-12.0) sec INR (<1.2) Sodium 143 (137-145) mmol/L Potassium 4.5 (3.5-5.1) mmol/L Chloride 107 (98-107) mmol/L Carbon Dioxide 30 (22-30) mmol/L Anion Gap 6 mmol/L BUN 10 (7-17) mg/dL Creatinine 0.71 (0.52-1.04) mg/dL Est GFR (CKD-EPI)AfAm >90 (>60 ml/min/1.73 sqM) Est GFR (CKD-EPI)NonAf 88 (>60 ml/min/1.73 sqM) Glucose 110 H (74-99) mg/dL Calcium 8.9 (8.4-10.2) mg/dL Troponin I (0.000-0.034) ng/mL NT-Pro-B Natriuret Pep 263 pg/mL 01/10/19 01/10/19 Range/Units 15:47 15:47 WBC (3.8-10.6) k/uL RBC (3.80-5.40) m/uL Hgb (11.4-16.0) gm/dL Hct (34.0-46.0) % MCV (80.0-100.0) fL MCH (25.0-35.0) pg MCHC (31.0-37.0) g/dL RDW (11.5-15.5) % Plt Count (150-450) k/uL Neutrophils % % Lymphocytes % % Monocytes % % Eosinophils % % Basophils % % Neutrophils # (1.3-7.7) k/uL Lymphocytes # (1.0-4.8) k/uL Monocytes # (0-1.0) k/uL Eosinophils # (0-0.7) k/uL Basophils # (0-0.2) k/uL PT 10.0 (9.0-12.0) sec INR 0.9 (<1.2) Sodium (137-145) mmol/L Potassium (3.5-5.1) mmol/L Chloride (98-107) mmol/L Carbon Dioxide (22-30) mmol/L Anion Gap mmol/L BUN (7-17) mg/dL Creatinine (0.52-1.04) mg/dL Est GFR (CKD-EPI)AfAm (>60 ml/min/1.73 sqM) Est GFR (CKD-EPI)NonAf (>60 ml/min/1.73 sqM) Glucose (74-99) mg/dL Calcium (8.4-10.2) mg/dL Troponin I <0.012 (0.000-0.034) ng/mL NT-Pro-B Natriuret Pep pg/mL Disposition <Clifford Chance - Last Filed: 01/10/19 16:54> Time of Disposition: 18:46 <Mike Phillip - Last Filed: 01/10/19 18:46> Clinical Impression: Exertional dyspnea Disposition: ADMITTED IP TO THIS HOSP Referrals: Jeramie Watts DO [Primary Care Provider] - 1-2 days
[2019-01-10 16:12] LABS: Anion Gap 6 mmol/L; Blood Urea Nitrogen 10 mg/dL (7-17); Calcium 8.9 mg/dL (8.4-10.2); Carbon Dioxide 30 mmol/L (22-30); Chloride 107 mmol/L (98-107); Glucose 110 mg/dL (74-99); Potassium 4.5 mmol/L (3.5-5.1); Sodium 143 mmol/L (137-145)
[2019-01-10] MEDS ORDERED: methylPREDNISolone SOD SUCCI 125 MG/2 ML VIAL IV STA (16:17)
[2019-01-10] MEDS ORDERED: diphenhydrAMINE 50 MG/ML 1 ML VIAL IVP STA (16:17)
[2019-01-10] MEDS ORDERED: FAMOTIDINE 20 MG/2 ML VIAL IV STA (16:17)
[2019-01-10 16:21] LABS: INR 0.9 (<1.2)
--- NOTE | 2019-01-10 17:10 | CT ---
EXAMINATION TYPE: CT angio chest with contrast and with 3-D reconstruction renderings DATE OF EXAM: 01/10/2019 4:58 PM COMPARISON: Dyspnea, pain HISTORY: Shortness of breath. CT DLP: 442.1 mGycm Automated exposure control for dose reduction was used. CONTRAST: CTA scan of the thorax is performed with IV Contrast, patient injected with 100 mL of Isovu e 370, pulmonary embolism protocol. 3-D reconstructions.. FINDINGS: There is mild patient motion artifact on all sequences. AIRWAYS: Unremarkable. PLEURAL SPACES: Negative. LUNGS: Clear and well expanded bilaterally. MEDIASTINUM: There is satisfactory enhancement of the pulmonary artery and its branches, with no CT e vidence for pulmonary embolism. The central pulmonary arterial anatomy is top normal in caliber. The aorta is negative for acute findings; mild atherosclerotic changes are noted. There is mild cardiomeg christin and panchamber enlargement, with coronary artery calcifications. No pericardial effusion. There i s no adenopathy. OTHER: No additional significant abnormality is seen. IMPRESSION: 1. No acute process. 2. Coronary calcifications with mild cardiomegaly and panchamber enlargement.
[2019-01-10] MEDS ORDERED: NITROGLYCERIN SL TABS 0.4 MG TAB SUBLINGUAL PRN ×2 (19:08→19:51)
--- NOTE | 2019-01-10 19:51 | P.HPIM ---
History of Present Illness H&P Date: 01/10/19 Chief Complaint: Dyspnea on exertion. This is a 68-year-old female one of Dr. Watts with a previous medical history significant for CAD was non-ST elevation myocardial infarction back in November 2018 with left heart catheterization and PCI of the RCA, currently on aspirin and Plavix Lipitor and Coreg, hypertension and hypertensive cardio vascular disease, hyperlipidemia, history of IBS with diarrhea, history of chronic tobacco use and dependence, patient had stopped smoking about a month ago and for the past 30 days she has been having increased pounding in her chest associated with increased shortness of breath with minimal activities even walking for 20 feet, she has no chest pressure however she does have an equivalent shortness of breath, she was seen by Dr. Lubin in the office today had a twelve-lead EKG and she had blood work done earlier for a d-dimer that came back positive and she directed to the ER for evaluation of her dyspnea had a CTA of the chest was negative for pulmonary and wasn't however did show enlargement of all cardiac chambers, patient did have an echocardiogram last month and that showed normal ejection fraction with normal chambers she stated that she has not been under lot of stress recently don't think that have changed is she had stopped her Lomotil that she takes for IBS and she's change her by systolic into Coreg 3.125 mg orally twice every day and had stopped smoking, otherwise nothing has changed she also was complaining of increased weight gain over 11 pounds in the last 30 days, she denies any swelling in both lower extremities however she does complain of some sort of orthopnea at this time and she cannot lay flat. Review of Systems Constitutional: Reports weakness, Reports weight gain, Denies anorexia, Denies chronic headaches, Denies lethargy Eyes: denies blurred vision, denies bulging eye, denies decreased vision Ears: deny: decreased hearing Ears, nose, mouth and throat: Denies dysphagia, Denies neck lump, Denies swelling in throat, Denies sore throat Cardiovascular: Reports decreased exercise tolerance, Reports dyspnea on exertion, Reports orthopnea, Reports shortness of breath, Denies chest pain, Denies lightheadedness, Denies palpitations, Denies rapid heart beat, Denies syncope Respiratory: Denies congestion, Denies cough, Denies cough with sputum, Denies home oxygen, Denies sleep apnea, Denies snoring, Denies wheezing Gastrointestinal: Reports abdominal pain, Reports bloating, Reports diarrhea, Denies BRBPR, Denies heartburn, Denies melena, Denies nausea, Denies vomiting Genitourinary: Denies dysuria, Denies hematuria Menstruation: Reports postmenopausal Musculoskeletal: Denies myalgias Musculoskeletal: absent: ankle pain, ankle stiffness, ankle swelling, elbow pain, elbow stiffness, elbow swelling, foot pain, foot stiffness, foot swelling, hand pain, hand stiffness, hand swelling, hip pain, hip stiffness, hip swelling, knee pain, knee stiffness, knee swelling, shoulder pain, shoulder stiffness, shoulder swelling, wrist pain, wrist stiffness, wrist swelling Integumentary: Denies pruritus, Denies rash Neurological: Denies numbness, Denies weakness Psychiatric: Denies anxiety, Denies depression Endocrine: Denies fatigue, Denies weight change Past Medical History Past Medical History: Coronary Artery Disease (CAD), Hyperlipidemia, Hypertension, Rheumatoid Arthritis (RA), Supraventricular Tachycardia (SVT), Thyroid Disorder Additional Past Medical History / Comment(s): salivary gland stone-resolved, IBS, CAD post NSTEMI with PCI of the RCA last month. History of Any Multi-Drug Resistant Organisms: MRSA, Other MDRO Date of last positivie culture/infection: 2006 MDRO Source:: abscess top of rt leg Past Surgical History: Appendectomy, Section, Cholecystectomy, Heart Catheterization With Stent, Hysterectomy Past Anesthesia/Blood Transfusion Reactions: No Reported Reaction Past Psychological History: No Psychological Hx Reported Smoking Status: Current every day smoker Past Alcohol Use History: None Reported Past Drug Use History: None Reported - Past Family History Father Family Medical History: Cancer Additional Family Medical History / Comment(s): Father at age 51 from lung cancer with metastatic disease. Mother Additional Family Medical History / Comment(s): Mother at age 77 from old age but had history of rheumatoid arthritis. Brother(s) Additional Family Medical History / Comment(s): Patient had 1 brother that from complications of agent orange. Patient has 3 living siblings with no major medical problems. Daughter(s) Additional Family Medical History / Comment(s): Patient is 3 children with no major medical problems. Medications and Allergies Home Medications Medication Instructions Recorded Confirmed Type Levothyroxine Sodium [Synthroid] 75 mcg PO DAILY 04/13/17 01/10/19 History Aspirin 325 mg PO DAILY #30 tab 12/09/18 01/10/19 Rx Atorvastatin [Lipitor] 80 mg PO HS #30 tab 12/09/18 01/10/19 Rx Clopidogrel [Plavix] 75 mg PO DAILY #30 tab 12/09/18 01/10/19 Rx Nitroglycerin Sl Tabs [Nitrostat] 0.4 mg SUBLINGUAL Q5M PRN #25 tab 12/09/18 01/10/19 Rx Carvedilol [Coreg] 3.125 mg PO BID 01/10/19 01/10/19 History Allergies Allergy/AdvReac Type Severity Reaction Status Date / Time adhesive tape Allergy Itching Verified 01/10/19 16:09 iodine Allergy Anaphylaxis Verified 01/10/19 16:09 latex Allergy Rash/Hives Verified 01/10/19 16:09 sulfamethoxazole Allergy Unknown Verified 01/10/19 16:09 [From Bactrim] trimethoprim [From Bactrim] Allergy Unknown Verified 01/10/19 16:09 STEROIDS AdvReac Unknown Uncoded 01/10/19 14:30 Physical Exam Vitals: Vital Signs Temp Pulse Resp BP Pulse Ox 01/10/19 19:41 65 18 156/94 96 01/10/19 18:25 60 16 160/82 94 L 01/10/19 17:00 63 113/84 01/10/19 15:52 60 16 124/82 97 01/10/19 14:27 98.1 F 63 20 157/82 97 Intake and Output 01/10/19 01/10/19 01/10/19 06:59 14:59 22:59 Other: Weight 86.183 kg - Constitutional General appearance: average body habitus, no acute distress - EENT Eyes: anicteric sclerae, EOMI, PERRLA, no ptosis, no scleral icterus, normal appearance ENT: hearing grossly normal, NA/AT, normal oropharynx, no thrush Ears: bilateral: normal - Neck Neck: no lymphadenopathy, normal ROM, no rigidity, no stridor, no thyromegaly Carotids: bilateral: upstroke normal Thyroid: bilateral: normal size - Respiratory Respiratory: bilateral: diminished, negative: dullness, rales, rhonchi, wheezing, prolonged expiration, prolonged inspiration - Cardiovascular Rhythm: regular Heart sounds: normal: S1, S2 Abnormal Heart Sounds: no systolic murmur, no rub, S3 Gallop, no S4 Gallop, no click - Gastrointestinal General gastrointestinal: normal bowel sounds, soft, no splenomegaly, no tenderness, no umbilical hernia, no ventral hernia - Integumentary Integumentary: normal, normal turgor - Neurologic Neurologic: CNII-XII intact - Musculoskeletal Musculoskeletal: gait normal, generalized weakness, strength equal bilaterally - Psychiatric Psychiatric: A&O x's 3, appropriate affect, intact judgment & insight Results CBC & Chem 7: 01/10/19 15:47 01/10/19 15:47 Labs: Abnormal Lab Results - Last 24 Hours (Table) 01/10/19 Range/Units 15:47 Glucose 110 H (74-99) mg/dL Thrombosis Risk Factor Assmnt - DVT/VTE Prophylaxis DVT/VTE Prophylaxis: Pharmacologic Prophylaxis ordered Assessment and Plan Assessment: Assessment and plan: 1. Dyspnea on exertion with weight gain of 11 pounds over the last 30 days. Computed tomography scan of the chest was done negative for pulmonary embolism however it did show enlargement of the cardiac chambers, recommend repeating echocardiogram for evaluation of possible cardiomyopathy. Cardiology consultation per 2. CAD post-PCI of the RCA. Continue aspirin 81 mg once every day, Plavix 75 mg orally once every day, Lipitor 80 mg orally once every day, Coreg 3.125 mg orally twice every day. 3. Hypertension and hypertensive cardiovascular disease. Continue patient on Coreg 3.125 mg orally twice every day per 4. Hyperlipidemia. Continue Lipitor 80 mg orally once every day. 5. Hypothyroidism. Continue Synthroid 75 g orally once every day. 6. IBS. Patient was off Lomotil. 7. Tobacco use and dependence. Patient has quit about a month ago. 8. DVT prophylaxis. Heparin 5000 units subcutaneously every 8 hours. 9. GI prophylaxis. Continue patient on PPI 10. Observation. 11. Full code.
[2019-01-10] MEDS ORDERED: ATORVASTATIN 80 MG TAB PO SCH (21:00)
[2019-01-10] MEDS: CARVEDILOL 3.125 MG TAB PO SCH (21:19)
[2019-01-10] MEDS: HEPARIN SODIUM,PORCINE 5,000 UNIT/ML 1 ML VIAL SQ SCH (21:21)
[2019-01-11 04:00] LABS: Cholesterol 122 mg/dL (<200); HDL Cholesterol 86 mg/dL (40-60); LDL Cholesterol,Calculated 24 mg/dL (0-99); Triglycerides 58 mg/dL (<150)
[2019-01-11] MEDS ORDERED: LEVOTHYROXINE 75 MCG TAB PO SCH (06:30)
--- NOTE | 2019-01-11 07:43 | P.CRDCN ---
History of Present Illness Consult date: 01/11/19 Chief complaint: Shortness of breath History of present illness: This is a pleasant 68-year-old female patient who sees Dr. Lubin in the office a s an outpatient to recently, in November 2018, was experiencing chest discomfort and underwent a heart catheterization by Dr. Lubin and that revealed severe single-vessel coronary artery disease involving the right coronary artery where the patient underwent successful stenting of the RCA using a large bare-metal stent with a good angiographic results and without any complication. The patient was not found to have any residual coronary artery disease involving the left coronary system. Beside that she does have hypertension as well as dyslipidemia. She presented to the hospital complaining of shortness of breath of new onset. She stated that the shortness of breath just started within the l ast 48 hours. She described exertional dyspnea without orthopnea or PND. No chest pain or chest discomfort, dizziness or lightheadedness, heart racing or fluttering, or syncope. The EKG showed sinus rhythm with T-wave inversion in the inferolateral leads but these changes were a cyst on her prior EKG from November 2018. The cardiac enzymes were checked and came in to be unremarkable. She underwent a CTA of the chest and that was negative for PE but it did show cardiomegaly. For that reason we are going to obtain an echocardiogram with Doppler. On physical examination the patient seems to be euvolemic. She does have a clear breathing sounds bilaterally and I could not appreciate any lower extremities edema. The patient does not seems to be in any overt congestive heart failure at this point. The patient does have significant history of smoking and she quit smoking about a month ago. COPD probably down the line needs to be addressed. I am going to obtain an echocardiogram was Doppler to assess LV function. We will follow-up with the patient. Past Medical History Past Medical History: Coronary Artery Disease (CAD), Hyperlipidemia, Hype rtension, Rheumatoid Arthritis (RA), Supraventricular Tachycardia (SVT), Thyroid Disorder Additional Past Medical History / Comment(s): salivary gland stone-resolved, IBS, CAD post NSTEMI with PCI of the RCA last month. History of Any Multi-Drug Resistant Organisms: MRSA, Other MDRO Date of last positivie culture/infection: 2006 MDRO Source:: abscess top of rt leg Past Surgical History: Appendectomy, Section, Cholecystectomy, Heart Catheterization With Stent, Hysterectomy Past Anesthesia/Blood Transfusion Reactions: No Reported Reaction Date of Last Stent Placement:: 12/01 Past Psychological History: No Psychological Hx Reported Smoking Status: Current every day smoker Past Alcohol Use History: None Reported Past Drug Use History: None Reported - Past Family History Father Family Medical History: Cancer Additional Family Medical History / Comment(s): Father at age 51 from lung cancer with metastatic disease. Mother Additional Family Medical History / Comment(s): Mother at age 77 from old age but had history of rheumatoid arthritis. Brother(s) Additional Family Medical History / Comment(s): Patient had 1 brother that from complications of agent orange. Patient has 3 living siblings with no major medical problems. Daughter(s) Additional Family Medical History / Comment(s): Patient is 3 children with no major medical problems. Medications and Allergies Home Medications Medication Instructions Recorded Confirmed Type Levothyroxine Sodium [Synthroid] 75 mcg PO DAILY 04/13/17 01/10/19 History Aspirin 325 mg PO DAILY #30 tab 12/09/18 01/10/19 Rx Atorvastatin [Lipitor] 80 mg PO HS #30 tab 12/09/18 01/10/19 Rx Clopidogrel [Plavix] 75 mg PO DAILY #30 tab 12/09/18 01/10/19 Rx Nitroglycerin Sl Tabs [Nitrostat] 0.4 mg SUBLINGUAL Q5M PRN #25 tab 12/09/18 01/10/19 Rx Carvedilol [Coreg] 3.125 mg PO BID 01/10/19 01/10/19 History Allergies Allergy/AdvReac Type Severity Reaction Status Date / Time adhesive tape Allergy Itching Verified 01/10/19 16:09 iodine Allergy Anaphylaxis Verified 01/10/19 16:09 latex Allergy Rash/Hives Verified 01/10/19 16:09 sulfamethoxazole Allergy Unknown Verified 01/10/19 16:09 [From Bactrim] trimethoprim [From Bactrim] Allergy Unknown Verified 01/10/19 16:09 STEROIDS AdvReac Unknown Uncoded 01/10/19 14:30 Physical Exam Vitals: Vital Signs Temp Pulse Pulse Resp BP BP Pulse Ox 01/11/19 04:53 98.0 F 67 15 142/78 97 01/11/19 03:49 58 L 17 01/11/19 00:00 98.0 F 62 17 137/54 97 01/10/19 20:00 68 16 01/10/19 19:59 97.6 F 63 16 175/84 93 L 01/10/19 19:41 65 18 156/94 96 01/10/19 18:25 60 16 160/82 94 L 01/10/19 17:00 63 113/84 01/10/19 15:52 60 16 124/82 97 01/10/19 14:27 98.1 F 63 20 157/82 97 Intake and Output 01/10/19 01/11/19 01/11/19 22:59 06:59 14:59 Other: Voiding Method Toilet Toilet # Voids 1 1 - Constitutional General appearance: no acute distress - Respiratory Respiratory: bilateral: CTA - Cardiovascular Rhythm: regular Heart sounds: normal: S1, S2 Results 01/10/19 15:47 01/10/19 15:47 Cardiac Enzymes 01/10/19 01/10/19 01/11/19 Range/Units 15:47 21:13 03:30 Troponin I <0.012 <0.012 <0.012 (0.000-0.034) ng/mL Coagulation 01/10/19 Range/Units 15:47 PT 10.0 (9.0-12.0) sec Lipids 01/11/19 Range/Units 03:30 Triglycerides 58 (<150) mg/dL Cholesterol 122 (<200) mg/dL HDL Cholesterol 86 H (40-60) mg/dL CBC 01/10/19 Range/Units 15:47 WBC 6.4 (3.8-10.6) k/uL RBC 4.05 (3.80-5.40) m/uL Hgb 12.0 (11.4-16.0) gm/dL Hct 36.8 (34.0-46.0) % Plt Count 199 (150-450) k/uL Comprehensive Metabolic Panel 01/10/19 Range/Units 15:47 Sodium 143 (137-145) mmol/L Potassium 4.5 (3.5-5.1) mmol/L Chloride 107 (98-107) mmol/L Carbon Dioxide 30 (22-30) mmol/L BUN 10 (7-17) mg/dL Creatinine 0.71 (0.52-1.04) mg/dL Glucose 110 H (74-99) mg/dL Calcium 8.9 (8.4-10.2) mg/dL Current Medications Generic Name Dose Route Start Last Admin Trade Name Freq PRN Reason Stop Dose Admin Aspirin 325 mg 01/11/19 09:00 Aspirin PO DAILY [facility] Atorvastatin Calcium 80 mg 01/10/19 21:00 01/10/19 21:19 Lipitor PO 80 mg HS DONAVON Administration Carvedilol 3.125 mg 01/10/19 20:00 01/10/19 21:19 Coreg PO 3.125 mg BID-W/MEALS DONAVON Administration Clopidogrel Bisulfate 75 mg 01/11/19 09:00 Plavix PO DAILY [facility] Heparin Sodium (Porcine) 5,000 unit 01/11/19 00:00 01/10/19 21:21 Heparin SQ 5,000 unit Q8HR DONAVON Administration Levothyroxine Sodium 75 mcg 01/11/19 06:30 01/11/19 04:55 Synthroid PO 75 mcg DAILY@0630 DONAVON Administration Nitroglycerin 0.4 mg 01/10/19 19:08 Nitrostat SUBLINGUAL Q5M PRN Chest Pain Intake and Output 01/10/19 01/11/19 01/11/19 22:59 06:59 14:59 Other: Voiding Method Toilet Toilet # Voids 1 1 01/10/19 15:47 01/10/19 15:47 Assessment and Plan Assessment: Assessment #1 shortness of breath with exertion. #2 coronary artery disease and status post PCI of the RCA recently. The patient currently on Plavix #3 hypertension #4 dyslipidemia #5 significant history of smoking Plan #1 the patient was ruled out for acute coronary event #2 the patient was ruled out for PE as well #3 I will obtain an echocardiogram to assess the LV function and rule out any cardiomyopathy #4 probably as an outpatient, the patient's need to be assessed for COPD, she did have significant history of smoking Thank you for allowing us participate in her care and we will continue following up with the patient
[2019-01-11] MEDS: HEPARIN SODIUM,PORCINE 5,000 UNIT/ML 1 ML VIAL SQ SCH (08:54)
[2019-01-11] MEDS: CARVEDILOL 3.125 MG TAB PO SCH (08:57)
[2019-01-11] MEDS ORDERED: ASPIRIN 325 MG TAB PO SCH ×2 (09:00)
[2019-01-11] MEDS ORDERED: CLOPIDOGREL 75 MG TAB PO SCH (09:00)
[2019-01-11 12:11] VITALS: BP 146/89; PULSE 61; RESP 17; TEMP 98.5
--- NOTE | 2019-01-12 09:58 | ECHOF ---
Referral Reason:lv function MEASUREMENTS -------- HEIGHT: 170.2 cm WEIGHT: 86.2 kg BP: IVSd: 1.1 cm (0.6 - 1.1) LVIDd: 4.7 cm (3.9 - 5.3) LVPWd: 1.0 cm (0.6 - 1.1) IVSs: 1.3 cm LVIDs: 3.3 cm LVPWs: 1.6 cm LA Diam: 2.9 cm (2.7 - 3.8) FINDINGS -------- Sinus rhythm. Limited Study The left ventricular size is normal. There is borderline concentric left ventricular hypertrophy. Overall left ventricular systolic function is low-normal with, an EF between 50 - 55 %. There is no pericardial effusion. CONCLUSIONS -------- 1. Sinus rhythm. 2. Limited Study 3. The left ventricular size is normal. 4. There is borderline concentric left ventricular hypertrophy. 5. Overall left ventricular systolic function is low-normal with, an EF between 50 - 55 %. 6. There is no pericardial effusion. [employer]OR: Rosalie Cohn [facility]
== END 2019-01-11 15:32 | disposition home or self-care (01) ==
LOC: EC 14:10 → 1SOBS 19:08
PROVIDERS: ADMIT Internal Medicine; ATTEND Internal Medicine
DX: R06.09 Other forms of dyspnea (principal); R79.89 Other specified abnormal findings of blood chemistry; I47.1 Supraventricular tachycardia; I25.10 Atherosclerotic heart disease of native coronary artery without angina pectoris; E03.9 Hypothyroidism, unspecified; I11.9 Hypertensive heart disease without heart failure; M06.9 Rheumatoid arthritis, unspecified; E78.5 Hyperlipidemia, unspecified; K58.0 Irritable bowel syndrome with diarrhea; F17.200 Nicotine dependence, unspecified, uncomplicated; R63.5 Abnormal weight gain; Z68.29 Body mass index [BMI] 29.0-29.9, adult; R06.01 Orthopnea; Z79.890 Hormone replacement therapy; Z79.899 Other long term (current) drug therapy; Z79.82 Long term (current) use of aspirin; Z79.02 Long term (current) use of antithrombotics/antiplatelets; Z88.2 Allergy status to sulfonamides; Z88.1 Allergy status to other antibiotic agents; Z91.040 Latex allergy status; Z91.048 Other nonmedicinal substance allergy status; Z88.8 Allergy status to other drugs, medicaments and biological substances; Z90.49 Acquired absence of other specified parts of digestive tract; Z90.710 Acquired absence of both cervix and uterus; Z86.14 Personal history of Methicillin resistant Staphylococcus aureus infection; Z16.24 Resistance to multiple antibiotics; Z95.5 Presence of coronary angioplasty implant and graft; I25.2 Old myocardial infarction; Z84.89 Family history of other specified conditions; Z80.1 Family history of malignant neoplasm of trachea, bronchus and lung; Z82.61 Family history of arthritis
CPT/HCPCS: 96372; 96374; 96375; 99285; 36415; 93005; 93308; 83880; 80061; 80048; 84484 ×2; 85025; 85610; 71275; G0378 ×2; J1200; J1644; J2930; Q9967

== ENCOUNTER → 2019-01-10 | Outpatient (CLI) | payer MEDICARE ==
[2019-01-10 10:05] LABS: HCT 38.2 % (34.0-46.0); HGB 12.2 gm/dL (11.4-16.0); MCHC 31.8 g/dL (31.0-37.0); MCV 91.2 fL (80.0-100.0); RBC 4.19 m/uL (3.80-5.40); WBC 7.1 k/uL (3.8-10.6)
[2019-01-10 10:06] LABS: Mean Platelet Volume 7.7; Platelet Count 197 k/uL (150-450); RDW 14.5 % (11.5-15.5)
[2019-01-10 16:33] LABS: Anion Gap 7.1 mmol/L (4.00-12.00); Carbon Dioxide 29.9 mmol/L (21.6-31.8); Potassium 4.7 mmol/L (3.5-5.5)
== END | disposition home or self-care (01) ==
LOC: LABWHC1 09:02
PROVIDERS: ATTEND Internal Medicine Cardiovascular Disease
DX: R06.02 Shortness of breath (principal)
CPT/HCPCS: 36415; 80051; 82565; 84520; 85027; 85379

== ENCOUNTER 2019-01-22 19:02 | Emergency (ER) | payer MEDICARE ==
--- NOTE | 2019-01-22 21:43 | XR ---
EXAMINATION: XR chest 2V DATE AND TIME: 01/22/2019 8:29 PM CLINICAL INDICATION: PHH; dizziness TECHNIQUE: Departmental protocol COMPARISON: 12/06/2018 FINDINGS: The lungs are clear. The pleural spaces are negative. The cardiac silhouette is not enlarged. The remainder of the mediastinal silhouette is unremarkable. The skeletal structures and soft tissues are negative for acute findings. IMPRESSION: NO ACUTE PROCESS.
[2019-01-22] MEDS ORDERED: MECLIZINE 12.5 MG TAB PO STA (21:59)
[2019-01-22 22:06] LABS: Basophils # (A) 0.1 k/uL (0-0.2); Basophils % (A) 1 %; Eosinophils # (A) 0.3 k/uL (0-0.7); Eosinophils % (A) 4 %; HCT 37.5 % (34.0-46.0); HGB 12.4 gm/dL (11.4-16.0); Lymphocytes # (A) 2.1 k/uL (1.0-4.8); Lymphocytes % (A) 26 %; MCH 30.5 pg (25.0-35.0); MCHC 33.1 g/dL (31.0-37.0); Mean Platelet Volume 7.3; Monocytes # (A) 0.5 k/uL (0-1.0); Monocytes % (A) 6 %; Neutrophils # (A) 4.9 k/uL (1.3-7.7); Neutrophils % (A) 61 %; Platelet Count 191 k/uL (150-450); RBC 4.07 m/uL (3.80-5.40); RDW 13.9 % (11.5-15.5)
[2019-01-22 22:18] LABS: ALT 24 U/L (9-52); AST 30 U/L (14-36); African American GFR (CKD) >90 (>60 ml/min/1.73 sqM); Albumin 4.2 g/dL (3.5-5.0); Alkaline Phosphatase 75 U/L (38-126); Anion Gap 8 mmol/L; Blood Urea Nitrogen 15 mg/dL (7-17); Calcium 8.7 mg/dL (8.4-10.2); Carbon Dioxide 29 mmol/L (22-30); Chloride 106 mmol/L (98-107); Glucose 94 mg/dL (74-99); Potassium 4.3 mmol/L (3.5-5.1); Sodium 143 mmol/L (137-145); Total Bilirubin 0.4 mg/dL (0.2-1.3); Total Protein 7.2 g/dL (6.3-8.2)
[2019-01-22 22:25] LABS: INR 0.9 (<1.2); Partial Thromboplastin Time 23.2 sec (22.0-30.0); Prothrombin Time 9.7 sec (9.0-12.0)
--- NOTE | 2019-01-22 23:21 | CT ---
EXAM: CT Head Without Intravenous Contrast CLINICAL HISTORY: ITS.REASON CT Reason: dizziness TECHNIQUE: Axial computed tomography images of the head/brain without intravenous contrast. CTDI is 49.1 mGy and DLP is 1098.4 mGy-cm. This CT exam was performed using one or more of the following dose reduction techniques: automated exposure control, adjustment of the mA and/or kV according to patient size, and/or use of iterative reconstruction technique. COMPARISON: No relevant prior studies available. FINDINGS: Brain: No hemorrhage. No acute cortical infarct. No mass effect or midline shift. Age-related changes. Ventricles: Unremarkable. Bones/joints: No acute fracture. Soft tissues: Unremarkable. Sinuses: Minimal sinus disease. Mastoid air cells: Unremarkable as visualized. IMPRESSION: No acute intracranial process.
--- NOTE | 2019-01-23 00:19 | ED ---
Dizziness HPI - General Chief Complaint: Dizziness Stated Complaint: lightheaded/High BP Time Seen by Provider: 01/22/19 21:51 Source: patient Mode of arrival: ambulatory Limitations: no limitations - History of Present Illness Initial Comments: This 60-year-old white female presents with a complaint of some dizziness. She describes this as a lightheadedness or slight unsteadiness. It is not reproducible with movements. She denies any spinning or whirling type of sensation. She states that it came on this morning and has been fairly persistent throughout the day. She denies any medication changes. There is been no fevers or chills. She does relate a slight degree of shortness of breath. She denies any chest pains. There is no leg pain or swelling. She does relate a history of COPD. She has never had vertigo her previous similar dizziness in the past. She also relates that she's been fairly anxious the last several days as well and is unsure if this could be playing into her current symptoms. She gets stressed out as she did have a cardiac stent placed somewhat recently. No other complaints or modifying factors. - Related Data Home Medications Medication Instructions Recorded Confirmed Levothyroxine Sodium [Synthroid] 75 mcg PO DAILY 04/13/17 01/22/19 Carvedilol [Coreg] 3.125 mg PO BID 01/10/19 01/22/19 Previous Rx's Medication Instructions Recorded Aspirin 325 mg PO DAILY #30 tab 12/09/18 Atorvastatin [Lipitor] 80 mg PO HS #30 tab 12/09/18 Clopidogrel [Plavix] 75 mg PO DAILY #30 tab 12/09/18 Nitroglycerin Sl Tabs [Nitrostat] 0.4 mg SUBLINGUAL Q5M PRN #25 tab 12/09/18 Meclizine [Antivert] 25 mg PO TID PRN #20 tab 01/23/19 Allergies Allergy/AdvReac Type Severity Reaction Status Date / Time adhesive tape Allergy Itching Verified 01/22/19 22:08 iodine Allergy Anaphylaxis Verified 01/22/19 22:08 latex Allergy Rash/Hives Verified 01/22/19 22:08 sulfamethoxazole Allergy Unknown Verified 01/22/19 22:08 [From Bactrim] trimethoprim [From Bactrim] Allergy Unknown Verified 01/22/19 22:08 STEROIDS AdvReac Unknown Uncoded 01/22/19 19:34 Review of Systems ROS Statement: Those systems with pertinent positive or pertinent negative responses have been documented in the HPI. ROS Other: All systems not noted in ROS Statement are negative. Past Medical History Past Medical History: Coronary Artery Disease (CAD), Hyperlipidemia, Hypertension, Rheumatoid Arthritis (RA), Supraventricular Tachycardia (SVT), Thyroid Disorder Additional Past Medical History / Comment(s): salivary gland stone-resolved, IBS, CAD post NSTEMI with PCI of the RCA. , History of Any Multi-Drug Resistant Organisms: MRSA, Other MDRO Date of last positivie culture/infection: 2006 MDRO Source:: abscess top of rt leg Past Surgical History: Appendectomy, Section, Cholecystectomy, Heart Catheterization With Stent, Hysterectomy Past Anesthesia/Blood Transfusion Reactions: No Reported Reaction Date of Last Stent Placement:: 12/01 Past Psychological History: No Psychological Hx Reported Smoking Status: Former smoker Past Alcohol Use History: None Reported Past Drug Use History: None Reported - Past Family History Father Family Medical History: Cancer Additional Family Medical History / Comment(s): Father at age 51 from lung cancer with metastatic disease. Mother Additional Family Medical History / Comment(s): Mother at age 77 from old age but had history of rheumatoid arthritis. Brother(s) Additional Family Medical History / Comment(s): Patient had 1 brother that from complications of agent orange. Patient has 3 living siblings with no major medical problems. Daughter(s) Additional Family Medical History / Comment(s): Patient is 3 children with no major medical problems. General Exam - General Exam Comments Initial Comments: GENERAL: The patient is well nourished and well hydrated. VITAL SIGNS: Heart rate, blood pressure, respiratory rate reviewed as recorded in nurse's notes. EYES: Pupils are round and reactive. Extraocular movements are intact. No conjunctival / lid redness or swelling. ENT: No external evidence of injury, swelling, or ecchymosis. Airway is patent. Throat is clear. Tympanic membranes are clear. NECK: Nontender. No swelling or evidence of injury. No subcutaneous emphysema. Trachea is midline. No thyroid mass. HEART: Regular rate and rhythm. Good peripheral pulses. LUNGS/CHEST: Breath sounds clear and equal bilaterally. No rales, rhonchi, or wheezes. No ecchymosis, subcutaneous emphysema, or tenderness. ABDOMEN: Abdomen soft without tenderness. No palpable masses or organomegaly. No peritoneal signs. No abdominal wall swelling or ecchymosis. EXTREMITIES: No extremity tenderness. Normal muscle tone and function. No thoracolumbar tenderness. NEUROLOGIC: Sensation is grossly intact. Cranial nerve exam reveals face is symmetrical, tongue is midline, speech is clear. SKIN: No abrasions or ecchymosis is noted. No induration or masses noted. PSYCHIATRIC: Alert and oriented. Appropriate behavior and judgment. Limitations: no limitations Course Vital Signs 01/22/19 19:29 Temperature 98.2 F Pulse Rate 60 Respiratory 18 Rate Blood Pressure 153/71 O2 Sat by Pulse 99 Oximetry Medical Decision Making - Medical Decision Making The patient is seen and examined. All diagnostics are reviewed. The EKG shows a normal sinus rhythm at a rate of 60. There is some T-wave inversions noted in the anteroseptal and lateral leads. The MI intervals 136, QRS duration is 84, and the QTC intervals 466. The previous EKG is also reviewed from November 2018 and this shows similar changes. The chest x-ray and computed tomography scan of the brain did not show any acute processes. The laboratories all essentially within normal limits. The patient did receive some Antivert. She is feeling much improved on recheck. She initially had a slightly elevated blood pressure and this came down nicely. Overall, the exact cause of her symptoms is not definitively determined. It is felt as though it could be potentially related to anxiety. Other etiologies are possible. She is instructed to monitor her symptoms and follow up closely with her primary care physician and return if symptoms do worsen. - Lab Data Result diagrams: 01/22/19 21:53 01/22/19 21:53 Lab Results 01/22/19 01/22/19 01/22/19 Range/Units 21:53 21:53 21:53 WBC 8.0 (3.8-10.6) k/uL RBC 4.07 (3.80-5.40) m/uL Hgb 12.4 (11.4-16.0) gm/dL Hct 37.5 (34.0-46.0) % MCV 92.0 (80.0-100.0) fL MCH 30.5 (25.0-35.0) pg MCHC 33.1 (31.0-37.0) g/dL RDW 13.9 (11.5-15.5) % Plt Count 191 (150-450) k/uL Neutrophils % 61 % Lymphocytes % 26 % Monocytes % 6 % Eosinophils % 4 % Basophils % 1 % Neutrophils # 4.9 (1.3-7.7) k/uL Lymphocytes # 2.1 (1.0-4.8) k/uL Monocytes # 0.5 (0-1.0) k/uL Eosinophils # 0.3 (0-0.7) k/uL Basophils # 0.1 (0-0.2) k/uL PT (9.0-12.0) sec INR (<1.2) APTT (22.0-30.0) sec Sodium 143 (137-145) mmol/L Potassium 4.3 (3.5-5.1) mmol/L Chloride 106 (98-107) mmol/L Carbon Dioxide 29 (22-30) mmol/L Anion Gap 8 mmol/L BUN 15 (7-17) mg/dL Creatinine 0.67 (0.52-1.04) mg/dL Est GFR (CKD-EPI)AfAm >90 (>60 ml/min/1.73 sqM) Est GFR (CKD-EPI)NonAf >90 (>60 ml/min/1.73 sqM) Glucose 94 (74-99) mg/dL Calcium 8.7 (8.4-10.2) mg/dL Total Bilirubin 0.4 (0.2-1.3) mg/dL AST 30 (14-36) U/L ALT 24 (9-52) U/L Alkaline Phosphatase 75 (38-126) U/L Troponin I <0.012 (0.000-0.034) ng/mL Total Protein 7.2 (6.3-8.2) g/dL Albumin 4.2 (3.5-5.0) g/dL 01/22/19 Range/Units 21:53 WBC (3.8-10.6) k/uL RBC (3.80-5.40) m/uL Hgb (11.4-16.0) gm/dL Hct (34.0-46.0) % MCV (80.0-100.0) fL MCH (25.0-35.0) pg MCHC (31.0-37.0) g/dL RDW (11.5-15.5) % Plt Count (150-450) k/uL Neutrophils % % Lymphocytes % % Monocytes % % Eosinophils % % Basophils % % Neutrophils # (1.3-7.7) k/uL Lymphocytes # (1.0-4.8) k/uL Monocytes # (0-1.0) k/uL Eosinophils # (0-0.7) k/uL Basophils # (0-0.2) k/uL PT 9.7 (9.0-12.0) sec INR 0.9 (<1.2) APTT 23.2 (22.0-30.0) sec Sodium (137-145) mmol/L Potassium (3.5-5.1) mmol/L Chloride (98-107) mmol/L Carbon Dioxide (22-30) mmol/L Anion Gap mmol/L BUN (7-17) mg/dL Creatinine (0.52-1.04) mg/dL Est GFR (CKD-EPI)AfAm (>60 ml/min/1.73 sqM) Est GFR (CKD-EPI)NonAf (>60 ml/min/1.73 sqM) Glucose (74-99) mg/dL Calcium (8.4-10.2) mg/dL Total Bilirubin (0.2-1.3) mg/dL AST (14-36) U/L ALT (9-52) U/L Alkaline Phosphatase (38-126) U/L Troponin I (0.000-0.034) ng/mL Total Protein (6.3-8.2) g/dL Albumin (3.5-5.0) g/dL Disposition Clinical Impression: Anxiety, Dizziness, Hypertension Disposition: HOME SELF-CARE Condition: Good Instructions (If sedation given, give patient instructions): Dizziness (ED), Anxiety (ED) Prescriptions: Meclizine [Antivert] 25 mg PO TID PRN #20 tab PRN Reason: Vertigo Is patient prescribed a controlled substance at d/c from ED?: No Referrals: Jeramie Watts DO [Primary Care Provider] - 1-2 days Time of Disposition: 00:26
[2019-01-23 00:44] VITALS: BP 136/81; PULSE 55; RESP 20; TEMP 98.1
== END 2019-01-23 00:45 | disposition home or self-care (01) ==
LOC: EC 19:02
DX: R42 Dizziness and giddiness (principal); F41.9 Anxiety disorder, unspecified; I10 Essential (primary) hypertension; R94.31 Abnormal electrocardiogram [ECG] [EKG]; E07.9 Disorder of thyroid, unspecified; I25.10 Atherosclerotic heart disease of native coronary artery without angina pectoris; Z86.14 Personal history of Methicillin resistant Staphylococcus aureus infection; Z87.891 Personal history of nicotine dependence; Z79.890 Hormone replacement therapy; Z79.899 Other long term (current) drug therapy; Z91.040 Latex allergy status; Z88.1 Allergy status to other antibiotic agents; Z88.2 Allergy status to sulfonamides; Z91.048 Other nonmedicinal substance allergy status; Z88.8 Allergy status to other drugs, medicaments and biological substances; Z95.5 Presence of coronary angioplasty implant and graft
CPT/HCPCS: 36415; 70450; 71046; 80053; 84484; 85025; 85610; 85730; 93005; 99285

== ENCOUNTER → 2019-06-12 | Outpatient (CLI) | payer MEDICARE ==
--- NOTE | 2019-06-12 15:05 | XR ---
EXAMINATION TYPE: XR ankle complete LT DATE OF EXAM: 06/12/2019 COMPARISON: NONE HISTORY: Pain FINDINGS: Three views of the ankle demonstrate the ankle mortise to be intact and symmetric. There is spurring along the lower margin of the medial malleolus. Mild diffuse osteopenia. Large spurs are seen involvi ng the calcaneus. There is soft tissue edema.. The osseous structures are intact. IMPRESSION: 1. No definite acute fracture or dislocation, if symptoms persist follow-up study in 7 to 10 days wou ld be suggested.
== END | disposition home or self-care (01) ==
LOC: RADXRMAIN 14:15
PROVIDERS: ATTEND Family Medicine
DX: M25.572 Pain in left ankle and joints of left foot (principal)

== ENCOUNTER 2019-06-18 18:06 | Inpatient (IN) | payer MEDICARE ==
[2019-06-18] MEDS ORDERED: ALBUTEROL NEBULIZED 2.5 MG/3 ML INHALATION STA (18:53)
[2019-06-18] MEDS ORDERED: SODIUM CHLORIDE 0.9% 1,000 ML IV STA (18:53)
[2019-06-18] MEDS ORDERED: methylPREDNISolone SOD SUCCI 125 MG/2 ML VIAL IV STA (18:53)
[2019-06-18] MEDS ORDERED: IPRATROPIUM-ALBUTEROL 3 ML NEB INHALATION STA (18:53)
--- NOTE | 2019-06-18 18:53 | ED ---
SOB HPI - General Chief Complaint: Shortness of Breath Stated Complaint: SOB, cough Time Seen by Provider: 06/18/19 18:36 Source: patient, RN notes reviewed, old records reviewed Mode of arrival: wheelchair Limitations: no limitations - History of Present Illness Initial Comments: This is a 68-year-old female she is presenting for evaluation of shortness of breath with cough she has history of shortness of breath history of heart disease history of smoking. Patient presented today with family members, concern over breathing breath and was normal in U for use her 's breathing treatments and oxygen at home which improved her oxygen which is been having significant short of breath she was on a Z-Harman as of recent as well as breathing treatment with no help. No chest, no fevers, multiple sick contacts MD Complaint: shortness of breath, cough -: days(s) Radiation: back, jaw Severity: moderate Severity scale (1-10): 3 Quality: aching Consistency: constant Improves With: nothing Worsens With: nothing Known History Of: COPD, congestive heart failure Context: recent URI Associated Symptoms: chest pain, pain with inspiration, cough Treatments Prior to Arrival: oxygen - Related Data Home Medications Medication Instructions Recorded Confirmed Levothyroxine Sodium [Synthroid] 75 mcg PO DAILY 04/13/17 06/18/19 Carvedilol [Coreg] 3.125 mg PO BID 01/10/19 06/18/19 Previous Rx's Medication Instructions Recorded Aspirin 325 mg PO DAILY #30 tab 12/09/18 Atorvastatin [Lipitor] 80 mg PO HS #30 tab 12/09/18 Clopidogrel [Plavix] 75 mg PO DAILY #30 tab 12/09/18 Nitroglycerin Sl Tabs [Nitrostat] 0.4 mg SUBLINGUAL Q5M PRN #25 tab 12/09/18 Allergies Allergy/AdvReac Type Severity Reaction Status Date / Time adhesive tape Allergy Itching Verified 06/18/19 20:45 iodine Allergy Anaphylaxis Verified 06/18/19 20:45 latex Allergy Rash/Hives Verified 06/18/19 20:45 sulfamethoxazole Allergy Unknown Verified 06/18/19 20:45 [From Bactrim] trimethoprim [From Bactrim] Allergy Unknown Verified 06/18/19 20:45 STEROIDS AdvReac Unknown Uncoded 01/22/19 19:34 Review of Systems ROS Statement: Those systems with pertinent positive or pertinent negative responses have been documented in the HPI. ROS Other: All systems not noted in ROS Statement are negative. Past Medical History Past Medical History: Coronary Artery Disease (CAD), Hyperlipidemia, Hypertension, Rheumatoid Arthritis (RA), Supraventricular Tachycardia (SVT), Thyroid Disorder Additional Past Medical History / Comment(s): salivary gland stone-resolved, IBS, CAD post NSTEMI with PCI of the RCA. , History of Any Multi-Drug Resistant Organisms: MRSA, Other MDRO Date of last positivie culture/infection: 2006 MDRO Source:: abscess top of rt leg Past Surgical History: Appendectomy, Section, Cholecystectomy, Heart Catheterization With Stent, Hysterectomy Past Anesthesia/Blood Transfusion Reactions: No Reported Reaction Date of Last Stent Placement:: 12/01 Past Psychological History: No Psychological Hx Reported Smoking Status: Former smoker Past Alcohol Use History: None Reported Past Drug Use History: None Reported - Past Family History Father Family Medical History: Cancer Additional Family Medical History / Comment(s): Father at age 51 from lung cancer with metastatic disease. Mother Additional Family Medical History / Comment(s): Mother at age 77 from old age but had history of rheumatoid arthritis. Brother(s) Additional Family Medical History / Comment(s): Patient had 1 brother that from complications of agent orange. Patient has 3 living siblings with no major medical problems. Daughter(s) Additional Family Medical History / Comment(s): Patient is 3 children with no major medical problems. General Exam Limitations: no limitations General appearance: alert, in no apparent distress Head exam: Present: atraumatic, normocephalic, normal inspection Eye exam: Present: normal appearance, PERRL, EOMI. Absent: scleral icterus, conjunctival injection, periorbital swelling ENT exam: Present: normal exam, mucous membranes moist Neck exam: Present: normal inspection. Absent: tenderness, meningismus, lymphadenopathy Respiratory exam: Present: wheezes, accessory muscle use, decreased breath sounds, prolonged expiratory. Absent: respiratory distress, rales, rhonchi, stridor Cardiovascular Exam: Present: regular rate, normal rhythm, normal heart sounds. Absent: systolic murmur, diastolic murmur, rubs, gallop, clicks GI/Abdominal exam: Present: soft, normal bowel sounds. Absent: distended, tenderness, guarding, rebound, rigid Extremities exam: Present: normal inspection, full ROM, normal capillary refill. Absent: tenderness, pedal edema, joint swelling, calf tenderness Back exam: Present: normal inspection Neurological exam: Present: alert, oriented X3, CN II-XII intact Psychiatric exam: Present: normal affect, normal mood Skin exam: Present: warm, dry, intact, normal color. Absent: rash Course Vital Signs 06/18/19 06/18/19 06/18/19 18:27 19:11 19:32 Temperature 98.5 F Pulse Rate 77 75 87 Respiratory 18 18 18 Rate Blood Pressure 132/77 O2 Sat by Pulse 89 L Oximetry 06/18/19 06/18/19 06/18/19 19:38 19:45 20:00 Temperature Pulse Rate 77 80 Respiratory 20 18 22 Rate Blood Pressure 123/76 O2 Sat by Pulse 91 L Oximetry - Reevaluation(s) Reevaluation #1: 06/18/19 18:51 medical record is reviewed Reevaluation #2: 06/18/19 21:37 Patient still maintaining low oxygen despite receiving supplemental O2 and after breathing treatment, oxygen still 87 88 - Consultations Consultation #1: Spoke with Dr. jorge who is okay for admission Medical Decision Making - Medical Decision Making 88 female the ER for evaluation of significant bronchitis and COPD. Patient will be admitted for COPD exacerbation with hypoxia breathing treatments and monitoring of pulse ox - Lab Data Result diagrams: 06/18/19 19:20 06/18/19 19:20 Lab Results 06/18/19 06/18/19 06/18/19 Range/Units 19:20 19:20 19:20 WBC 11.9 H (3.8-10.6) k/uL RBC 4.21 (3.80-5.40) m/uL Hgb 12.7 (11.4-16.0) gm/dL Hct 37.5 (34.0-46.0) % MCV 89.1 (80.0-100.0) fL MCH 30.1 (25.0-35.0) pg MCHC 33.8 (31.0-37.0) g/dL RDW 13.1 (11.5-15.5) % Plt Count 255 (150-450) k/uL Neutrophils % 73 % Lymphocytes % 17 % Monocytes % 6 % Eosinophils % 2 % Basophils % 1 % Neutrophils # 8.6 H (1.3-7.7) k/uL Lymphocytes # 2.0 (1.0-4.8) k/uL Monocytes # 0.7 (0-1.0) k/uL Eosinophils # 0.2 (0-0.7) k/uL Basophils # 0.2 (0-0.2) k/uL PT 10.2 (9.0-12.0) sec INR 0.9 (<1.2) APTT 23.0 (22.0-30.0) sec D-Dimer 0.36 (<0.60) mg/L FEU Sodium 142 (137-145) mmol/L Potassium 4.0 (3.5-5.1) mmol/L Chloride 105 (98-107) mmol/L Carbon Dioxide 29 (22-30) mmol/L Anion Gap 8 mmol/L BUN 10 (7-17) mg/dL Creatinine 0.59 (0.52-1.04) mg/dL Est GFR (CKD-EPI)AfAm >90 (>60 ml/min/1.73 sqM) Est GFR (CKD-EPI)NonAf >90 (>60 ml/min/1.73 sqM) Glucose 112 H (74-99) mg/dL Calcium 8.9 (8.4-10.2) mg/dL Magnesium 1.9 (1.6-2.3) mg/dL Total Bilirubin 0.4 (0.2-1.3) mg/dL AST 24 (14-36) U/L ALT 24 (9-52) U/L Alkaline Phosphatase 90 (38-126) U/L Troponin I (0.000-0.034) ng/mL NT-Pro-B Natriuret Pep pg/mL Total Protein 7.3 (6.3-8.2) g/dL Albumin 4.1 (3.5-5.0) g/dL 06/18/19 06/18/19 Range/Units 19:20 19:20 WBC (3.8-10.6) k/uL RBC (3.80-5.40) m/uL Hgb (11.4-16.0) gm/dL Hct (34.0-46.0) % MCV (80.0-100.0) fL MCH (25.0-35.0) pg MCHC (31.0-37.0) g/dL RDW (11.5-15.5) % Plt Count (150-450) k/uL Neutrophils % % Lymphocytes % % Monocytes % % Eosinophils % % Basophils % % Neutrophils # (1.3-7.7) k/uL Lymphocytes # (1.0-4.8) k/uL Monocytes # (0-1.0) k/uL Eosinophils # (0-0.7) k/uL Basophils # (0-0.2) k/uL PT (9.0-12.0) sec INR (<1.2) APTT (22.0-30.0) sec D-Dimer (<0.60) mg/L FEU Sodium (137-145) mmol/L Potassium (3.5-5.1) mmol/L Chloride (98-107) mmol/L Carbon Dioxide (22-30) mmol/L Anion Gap mmol/L BUN (7-17) mg/dL Creatinine (0.52-1.04) mg/dL Est GFR (CKD-EPI)AfAm (>60 ml/min/1.73 sqM) Est GFR (CKD-EPI)NonAf (>60 ml/min/1.73 sqM) Glucose (74-99) mg/dL Calcium (8.4-10.2) mg/dL Magnesium (1.6-2.3) mg/dL Total Bilirubin (0.2-1.3) mg/dL AST (14-36) U/L ALT (9-52) U/L Alkaline Phosphatase (38-126) U/L Troponin I <0.012 (0.000-0.034) ng/mL NT-Pro-B Natriuret Pep 225 pg/mL Total Protein (6.3-8.2) g/dL Albumin (3.5-5.0) g/dL - EKG Data -: EKG Interpreted by Me (EKG shows sinus rhythm rate of 60, [place] 1:30, QRS 82, QTc 455) - Radiology Data Radiology results: report reviewed (Chest x-rays negative for acute disease), image reviewed Critical Care Time Critical Care Time: Yes Total Critical Care Time: 31 Disposition Clinical Impression: Acute exacerbation of chronic obstructive pulmonary disease, Hypoxemia Disposition: ADMITTED IP TO THIS [facility] Condition: Fair Is patient prescribed a controlled substance at d/c from ED?: No Referrals: Jeramie Watts DO [Primary Care Provider] - 1-2 days
[2019-06-18 19:32] LABS: Basophils # (A) 0.2 k/uL (0-0.2); Basophils % (A) 1 %; Eosinophils # (A) 0.2 k/uL (0-0.7); Eosinophils % (A) 2 %; HCT 37.5 % (34.0-46.0); HGB 12.7 gm/dL (11.4-16.0); Lymphocytes % (A) 17 %; MCH 30.1 pg (25.0-35.0); MCHC 33.8 g/dL (31.0-37.0); MCV 89.1 fL (80.0-100.0); Mean Platelet Volume 6.5; Monocytes # (A) 0.7 k/uL (0-1.0); Monocytes % (A) 6 %; Neutrophils # (A) 8.6 k/uL (1.3-7.7); Neutrophils % (A) 73 %; Platelet Count 255 k/uL (150-450); RBC 4.21 m/uL (3.80-5.40); RDW 13.1 % (11.5-15.5); WBC 11.9 k/uL (3.8-10.6)
[2019-06-18 19:45] LABS: ALT 24 U/L (9-52); AST 24 U/L (14-36); African American GFR (CKD) >90 (>60 ml/min/1.73 sqM); Albumin 4.1 g/dL (3.5-5.0); Alkaline Phosphatase 90 U/L (38-126); Anion Gap 8 mmol/L; Blood Urea Nitrogen 10 mg/dL (7-17); Calcium 8.9 mg/dL (8.4-10.2); Carbon Dioxide 29 mmol/L (22-30); Chloride 105 mmol/L (98-107); Glucose 112 mg/dL (74-99); Magnesium 1.9 mg/dL (1.6-2.3); Sodium 142 mmol/L (137-145); Total Bilirubin 0.4 mg/dL (0.2-1.3); Total Protein 7.3 g/dL (6.3-8.2)
[2019-06-18 19:47] LABS: D-Dimer 0.36 mg/L FEU (<0.60); INR 0.9 (<1.2); Prothrombin Time 10.2 sec (9.0-12.0)
--- NOTE | 2019-06-18 20:21 | XR ---
EXAMINATION TYPE: XR chest 2V DATE OF EXAM: 06/18/2019 COMPARISON: Chest x-ray January 22, 2019. CT chest January 10, 2019. HISTORY: Copy shortness of breath for one week. TECHNIQUE: Frontal and lateral views of the chest are obtained. FINDINGS: There is background chronic emphysematous change without suspicious focal air space opacity, pleural effusion, or pneumothorax seen. The cardiac silhouette size remains enlarged. Overlying EKG leads are present. The osseous structures are intact. IMPRESSION: Chronic emphysematous change and cardiomegaly without acute pulmonary process.
[2019-06-18] MEDS ORDERED: NITROGLYCERIN SL TABS 0.4 MG TAB SUBLINGUAL PRN (22:36)
[2019-06-19] MEDS: SODIUM CHLORIDE 0.9% 1,000 ML IV SCH ×3 (00:28→18:07)
[2019-06-19] MEDS: methylPREDNISolone SOD SUCCI 125 MG/2 ML VIAL IV SCH ×4 (01:06→16:58)
[2019-06-19] MEDS: IPRATROPIUM-ALBUTEROL 3 ML NEB INHALATION PRN (01:33)
[2019-06-19 01:42] VITALS: BMI 31.3
[2019-06-19] MEDS: LEVOTHYROXINE 75 MCG TAB PO SCH (05:48)
[2019-06-19] MEDS: ALBUTEROL NEBULIZED 2.5 MG/3 ML INHALATION SCH ×4 (07:53→20:43)
[2019-06-19] MEDS: ASPIRIN 325 MG TAB PO SCH (08:07)
[2019-06-19] MEDS: CARVEDILOL 3.125 MG TAB PO SCH ×2 (08:07→16:59)
[2019-06-19] MEDS: CLOPIDOGREL 75 MG TAB PO SCH (08:07)
[2019-06-19] MEDS: ENOXAPARIN 40 MG/0.4 ML SYRINGE SQ SCH (08:07)
[2019-06-19] MEDS: NICOTINE 14MG/24HR PATCH TRANSDERM SCH (12:06)
[2019-06-19] MEDS: AZITHROMYCIN 500 MG TAB PO SCH (12:06)
--- NOTE | 2019-06-19 12:45 | P.CNPUL ---
History of Present Illness Consult date: 06/19/19 Reason for consult: dyspnea, COPD History of present illness: A 68-year-old female patient with known history of COPD, coronary artery disease, came in yesterday because of increased shortness of breath. Apparently she's been having increasing difficulty breathing along with symptoms of bronchitis for almost a week. Her pulse ox had dropped at home. She had been using her 's oxygen and nebulizer patient does not use any maintenance respiratory medications herself. The patient has contacted her primary care physician and she was given a steroid shot along with an antibiotic IM . She also completed a course of Z-Harman on outpatient basis. The patient however did not improve and she was still having increased shortness of breath and cough and congestion and for that reason she end up in the emergency department yesterday she was Hospital as for an acute COPD exacerbation/acute bronchitis. No pleurisy. No hemoptysis. No swelling lower extremities. No previous DVT or pulmonary embolism. No other complaints otherwise for now. She is already feeling better. She is currently on room air oxygen. Review of Systems Constitutional: Denies chills, Denies fever Eyes: denies as per HPI, denies blurred vision, denies bulging eye, denies decreased vision, denies diplopia, denies discharge, denies dry eye, denies irritation, denies itching, denies pain, denies photophobia, denies loss of peripheral vision, denies loss of vision, denies tunnel vision/blind spots Ears: deny: decreased hearing, ear discharge, earache, tinnitus Ears, nose, mouth and throat: Denies headache, Denies sore throat Cardiovascular: Reports decreased exercise tolerance, Reports shortness of breath Respiratory: Reports cough, Reports cough with sputum, Reports dyspnea, Reports respiratory infections, Reports wheezing Gastrointestinal: Denies abdominal pain, Denies diarrhea, Denies nausea, Denies vomiting Genitourinary: Reports as per HPI Menstruation: Reports as per HPI Musculoskeletal: Reports as per HPI Musculoskeletal: absent: ankle pain, ankle stiffness, ankle swelling Integumentary: Denies pruritus, Denies rash Neurological: Denies numbness, Denies weakness Psychiatric: Denies anxiety, Denies depression Endocrine: Reports as per HPI Hematologic/Lymphatic: Reports as per HPI Allergic/Immunologic: Reports as per HPI Past Medical History Past Medical History: Coronary Artery Disease (CAD), COPD, Hyperlipidemia, Hypertension, Rheumatoid Arthritis (RA), Supraventricular Tachycardia (SVT), Thyroid Disorder Additional Past Medical History / Comment(s): salivary gland stone-resolved, IBS, CAD post NSTEMI with PCI of the RCA. , History of Any Multi-Drug Resistant Organisms: MRSA, Other MDRO Date of last positivie culture/infection: 2006 MDRO Source:: abscess top of rt leg Past Surgical History: Appendectomy, Section, Cholecystectomy, Heart Catheterization With Stent, Hysterectomy Past Anesthesia/Blood Transfusion Reactions: No Reported Reaction Date of Last Stent Placement:: 12/01 Past Psychological History: No Psychological Hx Reported Smoking Status: Current some day smoker Past Alcohol Use History: None Reported Additional Past Alcohol Use History / Comment(s): Patient is an occational smoker a few cigarettes per day. She denies any marijuana or illicit drug use. Occational alcohol use. Patient lives at home with her . Past Drug Use History: None Reported Additional Drug Use History / Comment(s): uses cannibis oil for R/A. instructed not to use at least 24 hours prior to procedure - Past Family History Father Family Medical History: Cancer Additional Family Medical History / Comment(s): Father at age 51 from lung cancer with metastatic disease. Mother Family Medical History: Rheumatoid Arthritis (RA) Additional Family Medical History / Comment(s): Mother at age 77 from old age but had history of rheumatoid arthritis. Brother(s) Additional Family Medical History / Comment(s): Patient had 1 brother that from complications of agent orange. Daughter(s) Additional Family Medical History / Comment(s): Patient is 3 children with no major medical problems. Sister(s) Family Medical History: Renal Disease, Vascular Disorder Medications and Allergies Home Medications Medication Instructions Recorded Confirmed Type Levothyroxine Sodium [Synthroid] 75 mcg PO DAILY 04/13/17 06/18/19 History Aspirin 325 mg PO DAILY #30 tab 12/09/18 06/18/19 Rx Atorvastatin [Lipitor] 80 mg PO HS #30 tab 12/09/18 06/18/19 Rx Clopidogrel [Plavix] 75 mg PO DAILY #30 tab 12/09/18 06/18/19 Rx Nitroglycerin Sl Tabs [Nitrostat] 0.4 mg SUBLINGUAL Q5M PRN #25 tab 12/09/18 06/18/19 Rx Carvedilol [Coreg] 3.125 mg PO BID 01/10/19 06/18/19 History Allergies Allergy/AdvReac Type Severity Reaction Status Date / Time adhesive tape Allergy Itching Verified 06/18/19 20:45 iodine Allergy Anaphylaxis Verified 06/18/19 20:45 latex Allergy Rash/Hives Verified 06/18/19 20:45 sulfamethoxazole Allergy Unknown Verified 06/18/19 20:45 [From Bactrim] trimethoprim [From Bactrim] Allergy Unknown Verified 06/18/19 20:45 STEROIDS AdvReac Unknown Uncoded 01/22/19 19:34 Physical Exam Vitals: Vital Signs Temp Pulse Pulse Resp BP BP Pulse Ox 06/19/19 11:53 74 06/19/19 11:43 78 06/19/19 07:59 74 06/19/19 07:53 76 06/19/19 07:27 98.1 F 74 16 155/79 93 L 06/19/19 04:17 20 06/19/19 01:43 69 06/19/19 01:33 69 06/19/19 01:30 97.6 F 70 18 126/80 89 L 06/19/19 01:13 20 06/18/19 23:57 98.1 F 76 22 137/65 93 L 06/18/19 23:00 78 22 134/79 94 L 06/18/19 22:00 98.4 F 73 20 125/66 94 L 06/18/19 21:00 78 22 134/76 92 L 06/18/19 20:00 80 22 123/76 91 L 06/18/19 19:45 77 18 06/18/19 19:38 20 06/18/19 19:32 87 18 06/18/19 19:11 75 18 06/18/19 18:27 98.5 F 77 18 132/77 89 L Intake and Output 06/18/19 06/19/19 06/19/19 22:59 06:59 14:59 Intake Total 180 Balance 180 Intake: Oral 180 Other: Voiding Method Toilet Weight 90.718 kg The patient appeared well nourished and normally developed. Vital signs as documented. Head exam is unremarkable. No scleral icterus or corneal arcus noted. Neck is without jugular venous distension, thyromegaly, or carotid bruits. Carotid upstrokes are brisk bilaterally. Lungs . are diminished breath sounds bilaterally along with prolongation of expiratory phase of breathing and scattered expiratory wheezes throughout the lung gifford. Cardiac exam reveals the PMI to normally sized and situated. Rhythm is regular. First and second heart sounds normal. No murmurs, rubs or gallops. Abdominal exam reveals normal bowel sounds, no masses, no organomegaly and no aortic enlargement. Extremities are nonedematous and both femoral and pedal pulses are normal.Examination of the skin revealed no evidence of significant rashes, suspicious appearing nevi or other concerning lesions. Neurologically the patient is awake and alert and is no focal neurological deficits. Results - Laboratory Findings CBC and BMP: 06/18/19 19:20 06/18/19 19:20 PT/INR, D-dimer PT 10.2 sec (9.0-12.0) 06/18/19 19:20 INR 0.9 (<1.2) 06/18/19 19:20 D-Dimer 0.36 mg/L FEU (<0.60) 06/18/19 19:20 Abnormal lab findings: Abnormal Labs 06/18/19 06/18/19 19:20 19:20 WBC 11.9 H Neutrophils # 8.6 H Glucose 112 H Assessment and Plan Plan: 1 acute COPD exacerbation with secondary shortness of breath 2 acute hypoxic respiratory failure secondary to above 3 coronary artery disease with recent coronary intervention and stenting of the RCA 4 chronic smoker 5 hyperlipidemia 6 rheumatoid arthritis 7 hypothyroidism 8 irritable bowel syndrome. Plan We'll see this patient for an acute COPD exacerbation with a combination of bronchodilators steroids and antibiotics. Chest x-ray does not show any acute abnormalities in terms of pneumonia or consolidation. The patient will need to quit smoking and Cessation counseling was done. Patient will also need outpatient evaluation testing including a pulmonary function test and further adjustments in her home medication done accordingly.
[2019-06-19] MEDS: ATORVASTATIN 80 MG TAB PO SCH (19:37)
[2019-06-19] MEDS: BUDESONIDE 0.5 MG/2 ML NEBU INHALATION SCH (20:43)
[2019-06-20] MEDS: methylPREDNISolone SOD SUCCI 125 MG/2 ML VIAL IV SCH ×4 (00:52→17:03)
[2019-06-20] MEDS: IPRATROPIUM-ALBUTEROL 3 ML NEB INHALATION PRN (03:46)
[2019-06-20] MEDS: SODIUM CHLORIDE 0.9% 1,000 ML IV SCH ×2 (04:16→13:35)
[2019-06-20] MEDS: LEVOTHYROXINE 75 MCG TAB PO SCH (06:07)
[2019-06-20] MEDS: CARVEDILOL 3.125 MG TAB PO SCH ×2 (07:22→17:03)
[2019-06-20] MEDS: NICOTINE 14MG/24HR PATCH TRANSDERM SCH ×2 (07:22→11:45)
[2019-06-20] MEDS: CLOPIDOGREL 75 MG TAB PO SCH (07:22)
[2019-06-20] MEDS: ENOXAPARIN 40 MG/0.4 ML SYRINGE SQ SCH (07:22)
[2019-06-20] MEDS: FAMOTIDINE 20 MG TAB PO SCH (07:22)
[2019-06-20] MEDS: ASPIRIN 325 MG TAB PO SCH (07:22)
[2019-06-20] MEDS: BUDESONIDE 0.5 MG/2 ML NEBU INHALATION SCH ×2 (08:27→19:41)
[2019-06-20] MEDS: ALBUTEROL NEBULIZED 2.5 MG/3 ML INHALATION SCH ×4 (08:27→19:41)
[2019-06-20] MEDS ORDERED: predniSONE 20 MG TAB PO SCH (11:00)
[2019-06-20] MEDS: AZITHROMYCIN 500 MG TAB PO SCH (11:40)
[2019-06-20] MEDS: BENZONATATE 100 MG CAP PO PRN (11:41)
--- NOTE | 2019-06-20 14:27 | P.PN ---
Subjective Progress Note Date: 06/20/19 Principal diagnosis: Acute hypoxic respiratory failure secondary to an acute exacerbation of chronic obstructive pulmonary disease. A 68-year-old female patient with known history of COPD, coronary artery disease, came in yesterday because of increased shortness of breath. Apparently she's been having increasing difficulty breathing along with symptoms of bronchitis for almost a week. Her pulse ox had dropped at home. She had been using her 's oxygen and nebulizer patient does not use any maintenance respiratory medications herself. The patient has contacted her primary care physician and she was given a steroid shot along with an antibiotic IM . She also completed a course of Z-Harman on outpatient basis. The patient however did not improve and she was still having increased shortness of breath and cough and congestion and for that reason she end up in the emergency department yesterday she was Hospital as for an acute COPD exacerbation/acute bronchitis. No pleurisy. No hemoptysis. No swelling lower extremities. No previous DVT or pulmonary embolism. No other complaints otherwise for now. She is already feeling better. She is currently on room air oxygen. The patient is seen today 06/20/2019 in follow-up on the regular medical floor. She is currently sitting up at the bedside. Awake and alert in no acute distress. Breathing easier today as compared to yesterday. Not quite back to her baseline. She continues with a dry nonproductive cough today. She is maintaining O2 saturations in the low 90s on room air. She's afebrile. She is continued on DuoNeb inhalations, Pulmicort and Perforomist inhalations, IV Solu- Medrol, empiric antibiotics in the form of azithromycin. Objective - Vital Signs Vital signs: Vital Signs Temp 98.6 F 06/20/19 07:00 Pulse 70 06/20/19 12:54 Resp 17 06/20/19 07:00 BP 153/77 06/20/19 07:00 Pulse Ox 90 L 06/20/19 07:00 Intake & Output 06/19/19 06/20/19 06/20/19 18:59 06:59 18:59 Intake Total 600 Balance 600 Intake: Oral 600 Other: Voiding Method Toilet # Voids 3 2 - Exam GENERAL EXAM: Alert, pleasant 68-year-old female patient, on room air, comfortable in no apparent distress. HEAD: Normocephalic. EYES: Normal reaction of pupils, equal size. NOSE: Clear with pink turbinates. THROAT: No erythema or exudates. NECK: No masses, no JVD. CHEST: No chest wall deformity. LUNGS: Equal air entry with faint end expiratory wheeze, diminished. CVS: S1 and S2 normal with no audible murmur, regular rhythm. ABDOMEN: No hepatosplenomegaly, normal bowel sounds, no guarding or rigidity. SPINE: No scoliosis or deformity SKIN: No rashes CENTRAL NERVOUS SYSTEM: No focal deficits, tone is normal in all 4 extremities. EXTREMITIES: There is no peripheral edema. No clubbing, no cyanosis. Peripheral pulses are intact. - Labs CBC & Chem 7: 06/18/19 19:20 06/18/19 19:20 Assessment and Plan Assessment: 1 acute COPD exacerbation with secondary shortness of breath 2 acute hypoxic respiratory failure secondary to above 3 coronary artery disease with recent coronary intervention and stenting of the RCA 4 chronic smoker 5 hyperlipidemia 6 rheumatoid arthritis 7 hypothyroidism 8 irritable bowel syndrome. Plan The patient was seen and evaluated by Dr. Bear. She is improved today but not quite back to her baseline. Continue IV Solu-Medrol another 24 hours. Continue the current treatment plan. Probable discharge in the a.m. She is again educated regarding the importance of complete smoking cessation. She will follow-up in our office in 1-2 weeks' time post discharge. We'll perform full pulmonary function testing to evaluate the severity of her COPD and make recommendations regarding maintenance medications. We will increase her act ivity as tolerated. We'll continue to follow. I, the cosigning physician, performed a history & physical examination of the patient. Lungs sounds bilateral end expiratory wheeze, diminished. Maintaining good O2 saturations in the 90s on room air. I discussed the assessment and plan of care with my nurse practitioner, Nadine Hays. I attest to the above note as dictated by her.
--- NOTE | 2019-06-20 19:10 | P.HPIM ---
History of Present Illness H&P Date: 06/19/19 Chief Complaint: Severe dyspnea and shortness of breath, COPD exacerbation, severe bronchiti 68-year-old female one of Dr. Gomes patient with known from previous admission for CAD post PCI and stent placement has known to have history of hypertension hyperlipidemia chronic smoking history of hyperglycemia and rheumatoid arthritis who apparently was seen by Dr. Gomes office few days ago for wrap early pneumonia was giving azithromycin pack and Medrol Dosepak with Rocephin intramuscularly in the office. Patient continued to have intractable cough with worsening shortness of breath. Patient was in the emergency apartment with her who presented in with acute respiratory failure with Mark holly with RVR and bad cellulitis of the lower extremity after having him admitted patient continue having severe hypoxia and cough ended up being seen in the emergency department as a patient with finding consistent with early pneumonia severe hypoxia and failure to outpatient treatment. Patient was started on the azithromycin IV along with Rocephin IV Solu-Medrol updraft treatment [id number] and admitted to the hospital for the above problem. She'll be seen pulmonary and considered this as a failure to outpatient treatment, chest x-ray showed chronic emphysema change with mild cardiomegaly without an active infection had seen Review of Systems CONSTITUTIONAL: Well-developed no acute respiratory distress. EYES: No icterus sclerae, no conjunctivitis. EARS, NOSE, MOUTH, THROAT, and FACE: No sore throat, lymphadenopathy, carotid bruits or deformity. RESPIRATORY: Positive shortness of breath cough or wheezes. CARDIOVASCULAR: Positive palpitation positive PND and orthopnea. GASTROINTESTINAL: No Abd pain, Nausea or vomiting, no Diarrhea or constipation, No GI Bleed, no distention or masses. GENITOURINARY: Negative for Hematuria or UTI, no kidney stones. INTEGUMENT/BREAST: Negative for any muscular injury with mild osteoarthritis.. HEMATOLOGIC/LYMPHATIC: Negative for bleed or purpura. MUSCULOSKELTAL: Negative for Myalgia or arthralgia. NEURLOGICAL: No LOC, Sz or syncope, blurred vision dizziness or abnormality.. BEHAVIORAL/PSYCH: Negative. ENDOCRINE: Negative. Past Medical History Past Medical History: Coronary Artery Disease (CAD), COPD, Hyperlipidemia, Hyp ertension, Rheumatoid Arthritis (RA), Supraventricular Tachycardia (SVT), Thyroid Disorder Additional Past Medical History / Comment(s): salivary gland stone-resolved, IBS, CAD post NSTEMI with PCI of the RCA. , History of Any Multi-Drug Resistant Organisms: MRSA, Other MDRO Date of last positivie culture/infection: 2006 MDRO Source:: abscess top of rt leg Past Surgical History: Appendectomy, Section, Cholecystectomy, Heart Catheterization With Stent, Hysterectomy Past Anesthesia/Blood Transfusion Reactions: No Reported Reaction Date of Last Stent Placement:: 12/01 Past Psychological History: No Psychological Hx Reported Smoking Status: Current some day smoker Past Alcohol Use History: None Reported Additional Past Alcohol Use History / Comment(s): Patient is an occational smoker a few cigarettes per day. She denies any marijuana or illicit drug use. Occational alcohol use. Patient lives at home with her . Past Drug Use History: None Reported Additional Drug Use History / Comment(s): uses cannibis oil for R/A. instructed not to use at least 24 hours prior to procedure - Past Family History Father Family Medical History: Cancer Additional Family Medical History / Comment(s): Father at age 51 from lung cancer with metastatic disease. Mother Family Medical History: Rheumatoid Arthritis (RA) Additional Family Medical History / Comment(s): Mother at age 77 from old age but had history of rheumatoid arthritis. Brother(s) Additional Family Medical History / Comment(s): Patient had 1 brother that from complications of agent orange. Daughter(s) Additional Family Medical History / Comment(s): Patient is 3 children with no major medical problems. Sister(s) Family Medical History: Renal Disease, Vascular Disorder Medications and Allergies Home Medications Medication Instructions Recorded Confirmed Type Levothyroxine Sodium [Synthroid] 75 mcg PO DAILY 04/13/17 06/18/19 History Aspirin 325 mg PO DAILY #30 tab 12/09/18 06/18/19 Rx Atorvastatin [Lipitor] 80 mg PO HS #30 tab 12/09/18 06/18/19 Rx Clopidogrel [Plavix] 75 mg PO DAILY #30 tab 12/09/18 06/18/19 Rx Nitroglycerin Sl Tabs [Nitrostat] 0.4 mg SUBLINGUAL Q5M PRN #25 tab 12/09/18 06/18/19 Rx Carvedilol [Coreg] 3.125 mg PO BID 05/29/19 11/04/19 History Allergies Allergy/AdvReac Type Severity Reaction Status Date / Time adhesive tape Allergy Itching Verified 06/18/19 20:45 iodine Allergy Anaphylaxis Verified 06/18/19 20:45 latex Allergy Rash/Hives Verified 06/18/19 20:45 sulfamethoxazole Allergy Unknown Verified 06/18/19 20:45 [From Bactrim] trimethoprim [From Bactrim] Allergy Unknown Verified 06/18/19 20:45 STEROIDS AdvReac Unknown Uncoded 01/22/19 19:34 Physical Exam Vitals: Vital Signs Temp Pulse Pulse Resp BP BP Pulse Ox 06/19/19 11:53 74 06/19/19 11:43 78 06/19/19 07:59 74 06/19/19 07:53 76 06/19/19 07:27 98.1 F 74 16 155/79 93 L 06/19/19 04:17 20 06/19/19 01:43 69 06/19/19 01:33 69 06/19/19 01:30 97.6 F 70 18 126/80 89 L 06/19/19 01:13 20 06/18/19 23:57 98.1 F 76 22 137/65 93 L 06/18/19 23:00 78 22 134/79 94 L 06/18/19 22:00 98.4 F 73 20 125/66 94 L 06/18/19 21:00 78 22 134/76 92 L 06/18/19 20:00 80 22 123/76 91 L 06/18/19 19:45 77 18 06/18/19 19:38 20 06/18/19 19:32 87 18 06/18/19 19:11 75 18 06/18/19 18:27 98.5 F 77 18 132/77 89 L Intake and Output 06/18/19 06/19/19 06/19/19 22:59 06:59 14:59 Intake Total 180 Balance 180 Intake: Oral 180 Other: Voiding Method Toilet Weight 90.718 kg General Appearance: Alert, cooperative, no distress, appears stated age. Neck HEENT: Supple, no lymphadenopathy, no thyroid enlargement, no carotid bruits. Lungs: Decreased breath sound bilaterally with fine rhonchi positive mild crackles in the bases with significant decrease air moving in and out with significant expiratory wheezes. Chest Wall: Decrease expansion with deep inspiration no tenderness and no deformity was found on exam, no costochondral pain or discomfort. Heart: Regular rate and rhythm, S1, S2 normal, no murmur, rub or gallop. Back: Symmetric, no curvature, ROM normal, no CVA tenderness. Abdomen: Soft, non-tender, bowel sounds active all four quadrants, no masses, no organomegaly. Extremities: Extremities normal, atraumatic, no cyanosis or edema. Pulses: 2+ and symmetric. Skin: Skin color, texture, tugor normal, no rashes or lesions. Neurologic: Alert oriented x3 cranial nerves II through XII intact, no motor deficit, no abnormal balance or gait. Results CBC & Chem 7: 06/18/19 19:20 06/18/19 19:20 Labs: Abnormal Lab Results - Last 24 Hours (Table) 06/18/19 06/18/19 Range/Units 19:20 19:20 WBC 11.9 H (3.8-10.6) k/uL Neutrophils # 8.6 H (1.3-7.7) k/uL Glucose 112 H (74-99) mg/dL Thrombosis Risk Factor Assmnt - DVT/VTE Prophylaxis DVT/VTE Prophylaxis: Pharmacologic Prophylaxis ordered, Mechanical Prophylaxis ordered - Choose All That Apply Each Factor Represents 1 point: Abnormal pulmonary function (COPD), Obesity (BMI >25) Each Risk Factor Represents 2 Points: Age 61-74 years Thrombosis Risk Factor Assessment Total Risk Factor Score: 4 Thrombosis Risk Factor Assessment Level: Moderate Risk Assessment and Plan Plan: 1 acute respiratory failure: Secondary to COPD exacerbation with worsening hypoxia and failure to outpatient treatment on pneumonia with continue current management with O2 updraft and steroids. 2 COPD excessive patient: Continue patient on DuoNeb Pulmicort Solu-Medrol and O2. 3 pneumonia with failure to outpatient treatment: Negative chest x-ray because of antibiotic patient has been on so far continue Rocephin first dose and azithromycin will continue azithromycin as an outpatient for few more days. 4 coronary artery disease post angioplasty and stent placement of the RCA still on secondary prevention. 5 chronic smoking: Patient had adequate nicotine patch was giving as an option and decline. 6 hyperlipidemia: Continue atorvastatin 80 mg daily. 7 hypertension: Remain on Coreg 3.25 mg twice a day. 8 hypothyroidism: Continue patient on levothyroxine 75 g daily. 9 GI prophylaxis: Continue patient on Pepcid. 10 DVT prophylaxis: Patient will be on heparin subcutaneous. CODE STATUS: Full code. Admit patient to inpatient status for more than 2 nights.
--- NOTE | 2019-06-20 19:14 | P.PN ---
Subjective Progress Note Date: 06/20/19 Principal diagnosis: Severe dyspnea and shortness of breath, COPD exacerbation, severe bronchiti 68-year-old female one of Dr. Gomes patient with known from previous admission for CAD post PCI and stent placement has known to have history of hypertension hyperlipidemia chronic smoking history of hyperglycemia and rheumatoid arthritis who apparently was seen by Dr. Gomes office few days ago for wrap early pneumonia was giving azithromycin pack and Medrol Dosepak with Rocephin intramuscularly in the office. Patient continued to have intractable cough with worsening shortness of breath. Patient was in the emergency apartment with her who presented in with acute respiratory failure with Mark holly with RVR and bad cellulitis of the lower extremity after having him admitted patient continue having severe hypoxia and cough ended up being seen in the emergency department as a patient with finding consistent with early pneumonia severe hypoxia and failure to outpatient treatment. Patient was started on the azithromycin IV along with Rocephin IV Solu-Medrol updraft treatment [id number] and admitted to the hospital for the above problem. She'll be seen pulmonary and considered this as a failure to outpatient treatment, chest x-ray showed chronic emphysema change with mild cardiomegaly without an active infection had seen. 06/20: Patient is feeling slightly better continue to have slight tightness with quite bit wheezes continued to have mild hypoxia, was seen by pulmonary regularly with a current management treatment possible discharge tomorrow we'll switch patient to oral prednisone and prepare for home tomorrow. Objective - Vital Signs Vital signs: Vital Signs Temp 98.7 F 06/20/19 14:54 Pulse 72 06/20/19 16:02 Resp 16 06/20/19 14:54 BP 140/82 06/20/19 14:54 Pulse Ox 97 06/20/19 14:54 Intake & Output 06/20/19 06/20/19 06/21/19 06:59 18:59 06:59 Other: Voiding Method Toilet # Voids 2 2 - Exam Review of Systems CONSTITUTIONAL: Well-developed no acute respiratory distress. EYES: No icterus sclerae, no conjunctivitis. EARS, NOSE, MOUTH, THROAT, and FACE: No sore throat, lymphadenopathy, carotid bruits or deformity. RESPIRATORY: Positive shortness of breath cough or wheezes. CARDIOVASCULAR: Positive palpitation positive PND and orthopnea. GASTROINTESTINAL: No Abd pain, Nausea or vomiting, no Diarrhea or constipation, No GI Bleed, no distention or masses. GENITOURINARY: Negative for Hematuria or UTI, no kidney stones. INTEGUMENT/BREAST: Negative for any muscular injury with mild osteoarthritis.. HEMATOLOGIC/LYMPHATIC: Negative for bleed or purpura. MUSCULOSKELTAL: Negative for Myalgia or arthralgia. NEURLOGICAL: No LOC, Sz or syncope, blurred vision dizziness or abnormality.. BEHAVIORAL/PSYCH: Negative. ENDOCRINE: Negative. Physical Exam General Appearance: Alert, cooperative, no distress, appears stated age. Neck HEENT: Supple, no lymphadenopathy, no thyroid enlargement, no carotid bruits. Lungs: Decreased breath sound bilaterally with fine rhonchi positive mild crackles in the bases with significant decrease air moving in and out with significant expiratory wheezes. Chest Wall: Decrease expansion with deep inspiration no tenderness and no deformity was found on exam, no costochondral pain or discomfort. Heart: Regular rate and rhythm, S1, S2 normal, no murmur, rub or gallop. Back: Symmetric, no curvature, ROM normal, no CVA tenderness. Abdomen: Soft, non-tender, bowel sounds active all four quadrants, no masses, no organomegaly. Extremities: Extremities normal, atraumatic, no cyanosis or edema. Pulses: 2+ and symmetric. Skin: Skin color, texture, tugor normal, no rashes or lesions. Neurologic: Alert oriented x3 cranial nerves II through XII intact, no motor deficit, no abnormal balance or gait. - Labs CBC & Chem 7: 06/18/19 19:20 06/18/19 19:20 Assessment and Plan Plan: 1 acute respiratory failure: Secondary to COPD exacerbation with worsening hypoxia and failure to outpatient treatment on pneumonia with continue current management with O2 updraft and steroids. 2 COPD excessive patient: Continue patient on DuoNeb Pulmicort Solu-Medrol and O2. 3 pneumonia with failure to outpatient treatment: Negative chest x-ray because of antibiotic patient has been on so far continue Rocephin first dose and azithromycin will continue azithromycin as an outpatient for few more days. 4 coronary artery disease post angioplasty and stent placement of the RCA still on secondary prevention. 5 chronic smoking: Patient had adequate nicotine patch was giving as an option and decline. 6 hyperlipidemia: Continue atorvastatin 80 mg daily. 7 hypertension: Remain on Coreg 3.25 mg twice a day. 8 hypothyroidism: Continue patient on levothyroxine 75 g daily. 9 GI prophylaxis: Continue patient on Pepcid. Discharge planning: Patient is doing well tomorrow hopefully will be able to be discharged tomorrow.
[2019-06-20] MEDS: ATORVASTATIN 80 MG TAB PO SCH (21:27)
[2019-06-21] MEDS: methylPREDNISolone SOD SUCCI 125 MG/2 ML VIAL IV SCH ×2 (00:28→06:10)
[2019-06-21] MEDS: SODIUM CHLORIDE 0.9% 1,000 ML IV SCH ×2 (00:30→11:01)
[2019-06-21] MEDS: BENZONATATE 100 MG CAP PO PRN (01:23)
[2019-06-21 01:50] VITALS: TEMP 98.2
[2019-06-21] MEDS: LEVOTHYROXINE 75 MCG TAB PO SCH (06:10)
[2019-06-21 07:17] VITALS: BP 147/70; RESP 19
[2019-06-21] MEDS: BUDESONIDE 0.5 MG/2 ML NEBU INHALATION SCH (08:05)
[2019-06-21] MEDS: ALBUTEROL NEBULIZED 2.5 MG/3 ML INHALATION SCH ×2 (08:05→10:48)
[2019-06-21] MEDS: FAMOTIDINE 20 MG TAB PO SCH (09:41)
[2019-06-21] MEDS: CLOPIDOGREL 75 MG TAB PO SCH (09:41)
[2019-06-21] MEDS: CARVEDILOL 3.125 MG TAB PO SCH (09:41)
[2019-06-21] MEDS: ENOXAPARIN 40 MG/0.4 ML SYRINGE SQ SCH (09:41)
[2019-06-21] MEDS: ASPIRIN 325 MG TAB PO SCH (09:42)
[2019-06-21] MEDS: NICOTINE 14MG/24HR PATCH TRANSDERM SCH (09:42)
[2019-06-21 10:55] VITALS: PULSE 76
[2019-06-21] MEDS ORDERED: predniSONE 20 MG TAB PO SCH (11:00)
[2019-06-21] MEDS: AZITHROMYCIN 500 MG TAB PO SCH (12:44)
--- NOTE | 2019-06-21 14:13 | P.PN ---
Subjective Progress Note Date: 06/21/19 Principal diagnosis: Acute hypoxic respiratory failure secondary to an acute exacerbation of chronic obstructive pulmonary disease. A 68-year-old female patient with known history of COPD, coronary artery disease, came in yesterday because of increased shortness of breath. Apparently she's been having increasing difficulty breathing along with symptoms of bronchitis for almost a week. Her pulse ox had dropped at home. She had been using her 's oxygen and nebulizer patient does not use any maintenance respiratory medications herself. The patient has contacted her primary care physician and she was given a steroid shot along with an antibiotic IM . She also completed a course of Z-Harman on outpatient basis. The patient however did not improve and she was still having increased shortness of breath and cough and congestion and for that reason she end up in the emergency department yesterday she was Hospital as for an acute COPD exacerbation/acute bronchitis. No pleurisy. No hemoptysis. No swelling lower extremities. No previous DVT or pulmonary embolism. No other complaints otherwise for now. She is already feeling better. She is currently on room air oxygen. The patient is seen today 06/20/2019 in follow-up on the regular medical floor. She is currently sitting up at the bedside. Awake and alert in no acute distress. Breathing easier today as compared to yesterday. Not quite back to her baseline. She continues with a dry nonproductive cough today. She is maintaining O2 saturations in the low 90s on room air. She's afebrile. She is continued on DuoNeb inhalations, Pulmicort and Perforomist inhalations, IV Solu- Medrol, empiric antibiotics in the form of azithromycin. The patient is seen today 06/21/2019 in follow-up on the regular medical floor. She is awake and alert in no acute distress. She's been up ambulating. She's been up in the shower. She is feeling back to her baseline. She is currently on room air. No shortness of breath cough or congestion. Objective - Vital Signs Vital signs: Vital Signs Temp 98.2 F 06/21/19 07:15 Pulse 76 06/21/19 10:54 Resp 19 06/21/19 07:15 BP 147/70 06/21/19 07:15 Pulse Ox 92 L 06/21/19 07:15 Intake & Output 1106/21/19 06/21/19 18:59 06:59 18:59 Other: Voiding Method Toilet # Voids 2 2 2 - Exam GENERAL EXAM: Alert, pleasant 68-year-old female patient, on room air, comfortable in no apparent distress. HEAD: Normocephalic. EYES: Normal reaction of pupils, equal size. NOSE: Clear with pink turbinates. THROAT: No erythema or exudates. NECK: No masses, no JVD. CHEST: No chest wall deformity. LUNGS: Equal air entry with no rhonchi crackles or wheezes, diminished. CVS: S1 and S2 normal with no audible murmur, regular rhythm. ABDOMEN: No hepatosplenomegaly, normal bowel sounds, no guarding or rigidity. SPINE: No scoliosis or deformity SKIN: No rashes CENTRAL NERVOUS SYSTEM: No focal deficits, tone is normal in all 4 extremities. EXTREMITIES: There is no peripheral edema. No clubbing, no cyanosis. Peripheral pulses are intact. - Labs CBC & Chem 7: 06/18/19 19:20 06/18/19 19:20 Assessment and Plan Assessment: 1 acute COPD exacerbation with secondary shortness of breath 2 acute hypoxic respiratory failure secondary to above 3 coronary artery disease with recent coronary intervention and stenting of the RCA 4 chronic smoker 5 hyperlipidemia 6 rheumatoid arthritis 7 hypothyroidism 8 irritable bowel syndrome. Plan The patient was seen and evaluated by Dr. Bear. She is improved today and back to her baseline. She is cleared for discharge from the pulmonary standpoint. Continue bronchodilators. Continue prednisone taper. She is again educated regarding the importance of complete smoking cessation. She will follow-up in our office in 1-2 weeks' time. We'll perform full pulmonary function testing to evaluate the severity of her COPD and make recommendations regarding maintenance medications. She is encouraged to call sooner if any recurrence of symptoms or other questions or concerns. I, the cosigning physician, performed a history & physical examination of the patient. Lungs sounds diminished. Maintaining good O2 saturations in the 90s on room air. I discussed the assessment and plan of care with my nurse practitioner, Nadine Hays. I attest to the above note as dictated by her.
--- NOTE | 2019-06-21 16:02 | P.DS ---
Providers Date of admission: 06/18/19 21:35 Expected date of discharge: 06/21/19 Attending physician: Elizabeth Short Consults: 06/19/19 11:16 Consult Physician Routine Consulting Provider: Dilshad Bear Consult Reason/Comments: COPD Do you want consulting provider notified?: Yes Primary care physician: [facility] Course: 68-year-old female one of Dr. Gomes patient with known from previous admission for CAD post PCI and stent placement has known to have history of hypertension hyperlipidemia chronic smoking history of hyperglycemia and rheumatoid arthritis who apparently was seen by Dr. Gomes office few days ago for wrap early pneumonia was giving azithromycin pack and Medrol Dosepak with Rocephin intramuscularly in the office. Patient continued to have intractable cough with worsening shortness of breath. Patient was in the emergency apartment with her who presented in with acute respiratory failure with A. avni with RVR and bad cellulitis of the lower extremity after having him admitted patient continue having severe hypoxia and cough ended up being seen in the emergency department as a patient with finding consistent with early pneumonia severe hypoxia and failure to outpatient treatment. Patient was started on the azithromycin IV along with Rocephin IV Solu-Medrol updraft treatment [id number] and admitted to the hospital for the above problem. She'll be seen pulmonary and considered this as a failure to outpatient treatment, chest x-ray showed chronic emphysema change with mild cardiomegaly without an active infection had seen. 06/20: Patient is feeling slightly better continue to have slight tightness with quite bit wheezes continued to have mild hypoxia, was seen by pulmonary regularly with a current management treatment possible discharge tomorrow we'll switch patient to oral prednisone and prepare for home tomorrow. 06/21: The patient denies any new complaints. She her breathing is much improved. She is currently maintaining adequate pulse ox on room air. No cough or shortness of breath. She has been afebrile, heart rate 84, blood pressure 147/70, pulse ox 92% on room air. Patient will be discharged home today in stable condition. Discharge diagnoses: 1 acute hypoxic respiratory failure: Secondary to COPD exacerbation and failure to outpatient treatment on pneumonia 2 COPD exacerbation 3 pneumonia with failure to outpatient treatment 4 coronary artery disease post angioplasty and stent placement of the RCA 5 chronic smoking 6 hyperlipidemia 7 hypertension 8 hypothyroidism Discharge planning: home. Impression and plan of care have been directed as dictated by the signing physician. Lore Wiggins nurse practitioner acting as scribe for signing physician. Patient Condition at Discharge: Good Plan - Discharge Summary Discharge Rx Participant: No New Discharge Prescriptions: New Nicotine 14Mg/24Hr Patch [Habitrol] 1 patch TRANSDERM DAILY #30 patch Famotidine [Pepcid] 20 mg PO DAILY tab predniSONE 0 mg PO DIRECTED #30 tab Benzonatate [Tessalon Perles] 100 mg PO TID PRN #15 cap PRN Reason: Cough Albuterol Nebulized [Ventolin Nebulized] 2.5 mg INHALATION RT-QID #120 nebu Azithromycin [Zithromax] 500 mg PO DAILY@1200 #5 tab Continue Levothyroxine Sodium [Synthroid] 75 mcg PO DAILY Aspirin 325 mg PO DAILY #30 tab Atorvastatin [Lipitor] 80 mg PO HS #30 tab Nitroglycerin Sl Tabs [Nitrostat] 0.4 mg SUBLINGUAL Q5M PRN #25 tab PRN Reason: Chest Pain Clopidogrel [Plavix] 75 mg PO DAILY #30 tab Carvedilol [Coreg] 3.125 mg PO BID Discharge Medication List Levothyroxine Sodium [Synthroid] 75 mcg PO DAILY 04/13/17 [History] Aspirin 325 mg PO DAILY #30 tab 12/09/18 [Rx] Atorvastatin [Lipitor] 80 mg PO HS #30 tab 12/09/18 [Rx] Clopidogrel [Plavix] 75 mg PO DAILY #30 tab 12/09/18 [Rx] Nitroglycerin Sl Tabs [Nitrostat] 0.4 mg SUBLINGUAL Q5M PRN #25 tab 12/09/18 [Rx] Carvedilol [Coreg] 3.125 mg PO BID 01/10/19 [History] Albuterol Nebulized [Ventolin Nebulized] 2.5 mg INHALATION RT-QID #120 nebu 06/21/19 [Rx] Azithromycin [Zithromax] 500 mg PO DAILY@1200 #5 tab 06/21/19 [Rx] Benzonatate [Tessalon Perles] 100 mg PO TID PRN #15 cap 06/21/19 [Rx] Famotidine [Pepcid] 20 mg PO DAILY tab 06/21/19 [Rx] Nicotine 14Mg/24Hr Patch [Habitrol] 1 patch TRANSDERM DAILY #30 patch 06/21/19 [Rx] predniSONE 0 mg PO DIRECTED #30 tab 06/21/19 [Rx] Follow up Appointment(s)/Referral(s): Jeramie Watts DO [Primary Care Provider] - 1 Week (office will call with appointment time) Dilshad Bear MD [STAFF PHYSICIAN] - 06/29/19 3:15 pm (with Nadine Pena) Patient Instructions/Handouts: COPD (Chronic Obstructive Pulmonary Disease) (DC) Discharge Disposition: HOME SELF-CARE
== END 2019-06-21 12:50 | disposition home or self-care (01) | DRG 190 ==
LOC: EC 18:06 → 4MS4W 21:35 → 4SSUR 22:00
PROVIDERS: ADMIT Internal Medicine; ATTEND Internal Medicine
DX: J44.0 Chronic obstructive pulmonary disease with (acute) lower respiratory infection (principal); J96.01 Acute respiratory failure with hypoxia; J18.9 Pneumonia, unspecified organism; Z16.24 Resistance to multiple antibiotics; J44.1 Chronic obstructive pulmonary disease with (acute) exacerbation; E03.9 Hypothyroidism, unspecified; E78.5 Hyperlipidemia, unspecified; F17.200 Nicotine dependence, unspecified, uncomplicated; I11.0 Hypertensive heart disease with heart failure; I25.10 Atherosclerotic heart disease of native coronary artery without angina pectoris; I25.2 Old myocardial infarction; I50.9 Heart failure, unspecified; K58.9 Irritable bowel syndrome, unspecified; M06.9 Rheumatoid arthritis, unspecified; Z79.02 Long term (current) use of antithrombotics/antiplatelets; Z79.82 Long term (current) use of aspirin; Z79.890 Hormone replacement therapy; Z79.899 Other long term (current) drug therapy; Z80.1 Family history of malignant neoplasm of trachea, bronchus and lung; Z90.710 Acquired absence of both cervix and uterus; Z95.5 Presence of coronary angioplasty implant and graft; Z88.2 Allergy status to sulfonamides; Z88.8 Allergy status to other drugs, medicaments and biological substances; Z91.041 Radiographic dye allergy status; Z91.040 Latex allergy status
CPT/HCPCS: 36415; 71046; 80053; 83735; 83880; 84484; 85025; 85379; 85610; 85730; 93005; 94640; 96361; 96374; 99291

== ENCOUNTER 2019-06-26 17:21 | Observation (INO) | payer MEDICARE ==
--- NOTE | 2019-06-26 18:15 | ED ---
Dizziness HPI - General Chief Complaint: Dizziness Stated Complaint: Dizziness, swelling in feet Time Seen by Provider: 06/26/19 17:25 Source: patient Mode of arrival: wheelchair Limitations: no limitations - History of Present Illness Initial Comments: The patient is a 60-year-old female past medical history of COPD and coronary artery disease who presents emergency Department with reported lower extremity swelling. Patient was hospitalized last week for pneumonia, failed outpatient treatment. She was placed on antibiotics and steroids for at home. States that ever since her hospitalization discharge she's had lower extremity edema. No history of similar in the past. Denies a history of congestive heart failure. She did have a stent placed in her RCA in November. Reports to having additional coronary artery disease however not bad enough to place a stent at that time. Echo in December demonstrated an EF of 50-55%. She does not take any diuretics. No warmth or skin color changes. Admits that they are painful to walk on. She does admit to chronic respiratory insufficiency. States that it has not been any worse than normal. She denies any fevers or chills. No nausea or vomiting. Denies any chest pain. Also admits to a presyncopal sensation upon standing. No vertiginous symptoms or ataxia. There are no other alleviating, precipitating or modifying factors - Related Data Home Medications Medication Instructions Recorded Confirmed Levothyroxine Sodium [Synthroid] 75 mcg PO DAILY 04/13/17 06/26/19 Carvedilol [Coreg] 3.125 mg PO BID 01/10/19 06/26/19 Albuterol Nebulized [Ventolin 2.5 mg INHALATION QID 06/26/19 06/26/19 Nebulized] Budesonide [Pulmicort] 0.5 mg INHALATION BID 06/26/19 06/26/19 Previous Rx's Medication Instructions Recorded Atorvastatin [Lipitor] 80 mg PO HS #30 tab 12/09/18 Clopidogrel [Plavix] 75 mg PO DAILY #30 tab 12/09/18 Nitroglycerin Sl Tabs [Nitrostat] 0.4 mg SUBLINGUAL Q5M PRN #25 tab 12/09/18 Aspirin 81 mg PO DAILY chew 06/27/19 Furosemide [Lasix] 40 mg PO DAILY #30 tablet 06/27/19 Potassium Chloride ER [K-Dur 20] 20 meq PO DAILY #30 tab 06/27/19 Allergies Allergy/AdvReac Type Severity Reaction Status Date / Time adhesive tape Allergy Itching Verified 06/26/19 18:25 iodine Allergy Anaphylaxis Verified 06/26/19 18:25 latex Allergy Rash/Hives Verified 06/26/19 18:25 sulfamethoxazole Allergy Unknown Verified 06/26/19 18:25 [From Bactrim] trimethoprim [From Bactrim] Allergy Unknown Verified 06/26/19 18:25 STEROIDS AdvReac Unknown Uncoded 06/26/19 17:26 Review of Systems ROS Statement: Those systems with pertinent positive or pertinent negative responses have been documented in the HPI. ROS Other: All systems not noted in ROS Statement are negative. Past Medical History Past Medical History: Coronary Artery Disease (CAD), COPD, Hyperlipidemia, Hypertension, Rheumatoid Arthritis (RA), Supraventricular Tachycardia (SVT), Thyroid Disorder Additional Past Medical History / Comment(s): salivary gland stone-resolved, IBS, CAD post NSTEMI with PCI of the RCA. , History of Any Multi-Drug Resistant Organisms: MRSA, Other MDRO Date of last positivie culture/infection: 2006 MDRO Source:: abscess top of rt leg Past Surgical History: Appendectomy, Section, Cholecystectomy, Heart Catheterization With Stent, Hysterectomy Past Anesthesia/Blood Transfusion Reactions: No Reported Reaction Date of Last Stent Placement:: 12/01 Past Psychological History: No Psychological Hx Reported Smoking Status: Current some day smoker Past Alcohol Use History: None Reported Past Drug Use History: None Reported - Past Family History Father Family Medical History: Cancer Additional Family Medical History / Comment(s): Father at age 51 from lung cancer with metastatic disease. Mother Family Medical History: Rheumatoid Arthritis (RA) Additional Family Medical History / Comment(s): Mother at age 77 from old age but had history of rheumatoid arthritis. Brother(s) Additional Family Medical History / Comment(s): Patient had 1 brother that from complications of agent orange. Daughter(s) Additional Family Medical History / Comment(s): Patient is 3 children with no major medical problems. Sister(s) Family Medical History: Renal Disease, Vascular Disorder General Exam Limitations: no limitations General appearance: alert, in no apparent distress Head exam: Present: atraumatic, normocephalic, normal inspection Eye exam: Present: normal appearance, PERRL, EOMI. Absent: scleral icterus, conjunctival injection, periorbital swelling ENT exam: Present: normal exam, mucous membranes moist Neck exam: Present: normal inspection. Absent: tenderness, meningismus, lymphadenopathy Respiratory exam: Present: normal lung sounds bilaterally. Absent: respiratory distress, wheezes, rales, rhonchi, stridor Cardiovascular Exam: Present: regular rate, normal rhythm, normal heart sounds. Absent: systolic murmur, diastolic murmur, rubs, gallop, clicks GI/Abdominal exam: Present: soft, normal bowel sounds. Absent: distended, tenderness, guarding, rebound, rigid Extremities exam: Present: full ROM, normal capillary refill, pedal edema. Absent: tenderness, joint swelling, calf tenderness Back exam: Present: normal inspection Neurological exam: Present: alert, oriented X3, CN II-XII intact Psychiatric exam: Present: normal affect, normal mood Skin exam: Present: warm, dry, intact, normal color. Absent: rash Course Vital Signs 06/26/19 06/26/19 06/26/19 17:22 19:43 20:46 Temperature 98.1 F 99 F 97.9 F Pulse Rate 68 69 69 Respiratory 16 18 18 Rate Blood Pressure 141/70 142/88 150/77 O2 Sat by Pulse 97 94 L 96 Oximetry EKG Findings - EKG Comments: EKG Findings:: EKG demonstrates normal sinus rhythm with ventricular rate of 63. SD interval 124. Dressing 2. QTC 458. There is inverted T waves in leads V2 through V6. Also one in aVL. Medical Decision Making - Medical Decision Making Upon arrival the patient is placed into room 6. A thorough history and physical exam is performed. I did recommend laboratory studies and Doppler ultrasounds of the patient's lower extremities. With blood cell count of 13.7 likely secondary to steroid use. Creatinine normal at 0.6. Troponin less than 0.012. BNP 339. TSH is 0.732. Chest x-ray is performed as the patient is only satting 92% on room air. It does demonstrate mild interstitial phase pulmonary edema. Venous duplex of lower extremities is negative. I did discuss providing the patient with Lasix and discharging home however the patient feels uncomfortable going home. I did offer hospital admission for which the patient states she would prefer. I called and discussed the case with Dr. Short. She will be given 40 mg of Lasix in the ER to be continued every 12 hours. He requested I d o consult cardiology. Bridging orders were placed and the patient was transferred to the observation unit - Lab Data Result diagrams: 06/27/19 05:07 06/27/19 05:07 Lab Results 06/26/19 06/26/19 06/26/19 Range/Units 18:05 18:05 18:05 WBC 13.7 H (3.8-10.6) k/uL RBC 4.17 (3.80-5.40) m/uL Hgb 12.2 (11.4-16.0) gm/dL Hct 37.2 (34.0-46.0) % MCV 89.4 (80.0-100.0) fL MCH 29.2 (25.0-35.0) pg MCHC 32.6 (31.0-37.0) g/dL RDW 13.5 (11.5-15.5) % Plt Count 277 (150-450) k/uL Neutrophils % 85 % Lymphocytes % 9 % Monocytes % 3 % Eosinophils % 1 % Basophils % 1 % Neutrophils # 11.7 H (1.3-7.7) k/uL Lymphocytes # 1.2 (1.0-4.8) k/uL Monocytes # 0.4 (0-1.0) k/uL Eosinophils # 0.1 (0-0.7) k/uL Basophils # 0.1 (0-0.2) k/uL PT 10.2 (9.0-12.0) sec INR 0.9 (<1.2) APTT 20.9 L (22.0-30.0) sec Sodium 141 (137-145) mmol/L Potassium 3.9 (3.5-5.1) mmol/L Chloride 105 (98-107) mmol/L Carbon Dioxide 30 (22-30) mmol/L Anion Gap 6 mmol/L BUN 18 H (7-17) mg/dL Creatinine 0.60 (0.52-1.04) mg/dL Est GFR (CKD-EPI)AfAm >90 (>60 ml/min/1.73 sqM) Est GFR (CKD-EPI)NonAf >90 (>60 ml/min/1.73 sqM) Glucose 181 H (74-99) mg/dL Calcium 8.6 (8.4-10.2) mg/dL Total Bilirubin 0.4 (0.2-1.3) mg/dL AST 41 H (14-36) U/L ALT 68 H (9-52) U/L Alkaline Phosphatase 65 (38-126) U/L Troponin I (0.000-0.034) ng/mL NT-Pro-B Natriuret Pep pg/mL Total Protein 6.5 (6.3-8.2) g/dL Albumin 3.7 (3.5-5.0) g/dL TSH (0.465-4.680) mIU/L 06/26/19 06/26/19 06/26/19 Range/Units 18:05 18:05 18:05 WBC (3.8-10.6) k/uL RBC (3.80-5.40) m/uL Hgb (11.4-16.0) gm/dL Hct (34.0-46.0) % MCV (80.0-100.0) fL MCH (25.0-35.0) pg MCHC (31.0-37.0) g/dL RDW (11.5-15.5) % Plt Count (150-450) k/uL Neutrophils % % Lymphocytes % % Monocytes % % Eosinophils % % Basophils % % Neutrophils # (1.3-7.7) k/uL Lymphocytes # (1.0-4.8) k/uL Monocytes # (0-1.0) k/uL Eosinophils # (0-0.7) k/uL Basophils # (0-0.2) k/uL PT (9.0-12.0) sec INR (<1.2) APTT (22.0-30.0) sec Sodium (137-145) mmol/L Potassium (3.5-5.1) mmol/L Chloride (98-107) mmol/L Carbon Dioxide (22-30) mmol/L Anion Gap mmol/L BUN (7-17) mg/dL Creatinine (0.52-1.04) mg/dL Est GFR (CKD-EPI)AfAm (>60 ml/min/1.73 sqM) Est GFR (CKD-EPI)NonAf (>60 ml/min/1.73 sqM) Glucose (74-99) mg/dL Calcium (8.4-10.2) mg/dL Total Bilirubin (0.2-1.3) mg/dL AST (14-36) U/L ALT (9-52) U/L Alkaline Phosphatase (38-126) U/L Troponin I <0.012 (0.000-0.034) ng/mL NT-Pro-B Natriuret Pep 339 pg/mL Total Protein (6.3-8.2) g/dL Albumin (3.5-5.0) g/dL TSH 0.732 (0.465-4.680) mIU/L Disposition Clinical Impression: Lower extremity edema, Pulmonary edema, Pre-syncope Disposition: ADMITTED IP TO THIS [facility] Condition: Stable Is patient prescribed a controlled substance at d/c from ED?: No Decision to Admit Reason: Admit from EC Decision Date: 06/26/19 Decision Time: 20:19
[2019-06-26 18:34] LABS: Basophils # (A) 0.1 k/uL (0-0.2); Basophils % (A) 1 %; Eosinophils # (A) 0.1 k/uL (0-0.7); Eosinophils % (A) 1 %; HCT 37.2 % (34.0-46.0); HGB 12.2 gm/dL (11.4-16.0); Lymphocytes # (A) 1.2 k/uL (1.0-4.8); Lymphocytes % (A) 9 %; MCH 29.2 pg (25.0-35.0); MCHC 32.6 g/dL (31.0-37.0); MCV 89.4 fL (80.0-100.0); Monocytes # (A) 0.4 k/uL (0-1.0); Monocytes % (A) 3 %; Neutrophils # (A) 11.7 k/uL (1.3-7.7); Neutrophils % (A) 85 %; Platelet Count 277 k/uL (150-450); RBC 4.17 m/uL (3.80-5.40); RDW 13.5 % (11.5-15.5); WBC 13.7 k/uL (3.8-10.6)
[2019-06-26 18:35] LABS: ALT 68 U/L (9-52); AST 41 U/L (14-36); African American GFR (CKD) >90 (>60 ml/min/1.73 sqM); Albumin 3.7 g/dL (3.5-5.0); Alkaline Phosphatase 65 U/L (38-126); Anion Gap 6 mmol/L; Blood Urea Nitrogen 18 mg/dL (7-17); Calcium 8.6 mg/dL (8.4-10.2); Carbon Dioxide 30 mmol/L (22-30); Chloride 105 mmol/L (98-107); Glucose 181 mg/dL (74-99); Non-African American GFR(CKD) >90 (>60 ml/min/1.73 sqM); Potassium 3.9 mmol/L (3.5-5.1); Sodium 141 mmol/L (137-145); Total Bilirubin 0.4 mg/dL (0.2-1.3); Total Protein 6.5 g/dL (6.3-8.2)
[2019-06-26 18:46] LABS: INR 0.9 (<1.2); Prothrombin Time 10.2 sec (9.0-12.0)
[2019-06-26 18:51] LABS: Partial Thromboplastin Time 20.9 sec (22.0-30.0)
--- NOTE | 2019-06-26 19:24 | XR ---
EXAMINATION: XR chest 2V DATE AND TIME: 06/26/2019 6:34 PM CLINICAL INDICATION: PHH; difficulty breathing TECHNIQUE: Departmental protocol COMPARISON: 06/18/2019 FINDINGS: The overlying soft tissues are prominent. There is mild silhouetting of the lower pulmonary vasculature bilaterally by a fine reticular pattern of increased density, greater on the left. This subtle finding was not definitely demonstrated on th e prior study. This subtle radiographic finding can correlate with a clinical diagnosis of mild inter stitial phase pulmonary edema. The vast bulk of the pulmonary parenchyma is expanded and clear bilaterally. The pleural spaces are negative. The cardiac silhouette is not enlarged. The remainder of the mediastinal silhouette is unremarkable. The skeletal structures and soft tissues are negative for acute findings. IMPRESSION: No definite acute radiographic process, although subtle findings can correlate with a clinical diagno sis of mild interstitial phase pulmonary edema
--- NOTE | 2019-06-26 19:26 | US ---
EXAMINATION TYPE: US venous doppler duplex LE DATE OF EXAM: 06/26/2019 7:12 PM COMPARISON: NONE CLINICAL HISTORY: edema. Bilateral leg swelling x 5 days. Patient on Plavix. SIDE PERFORMED: Bilateral TECHNIQUE: The lower extremity deep venous system is examined utilizing real time linear array sonog lottie with graded compression, doppler sonography and color-flow sonography. VESSELS IMAGED: External Iliac Vein (EIV) Common Femoral Vein Deep Femoral Vein Greater Saphenous Vein * Femoral Vein Popliteal Vein Small Saphenous Vein * Proximal Calf Veins (* superficial vessels) Right lower extremity findings: No evidence of DVT in veins imaged from prox calf veins to EIV at th is time. Left lower extremity findings: No evidence of DVT in veins imaged from prox calf veins to EIV at thi s time. IMPRESSION: NEGATIVE FOR DVT, BILATERAL LOWER EXTREMITIES.
[2019-06-26] MEDS ORDERED: FUROSEMIDE 10 MG/ML 4 ML VIAL IV STA (20:22)
[2019-06-26] MEDS ORDERED: NALOXONE 0.4 MG/ML 1 ML VIAL IV PRN (20:23)
[2019-06-26] MEDS ORDERED: ATORVASTATIN 80 MG TAB PO SCH (21:00)
[2019-06-26] MEDS: ALBUTEROL NEBULIZED 2.5 MG/3 ML INHALATION SCH (23:58)
[2019-06-26] MEDS: BUDESONIDE 0.5 MG/2 ML NEBU INHALATION SCH (23:58)
[2019-06-27 06:22] LABS: Basophils # (A) 0.1 k/uL (0-0.2); Basophils % (A) 1 %; Eosinophils # (A) 0.2 k/uL (0-0.7); Eosinophils % (A) 2 %; HCT 36.2 % (34.0-46.0); HGB 11.7 gm/dL (11.4-16.0); Lymphocytes # (A) 2.8 k/uL (1.0-4.8); Lymphocytes % (A) 22 %; MCH 28.9 pg (25.0-35.0); MCHC 32.2 g/dL (31.0-37.0); MCV 89.7 fL (80.0-100.0); Mean Platelet Volume 7.3; Monocytes # (A) 0.8 k/uL (0-1.0); Monocytes % (A) 6 %; Neutrophils # (A) 8.6 k/uL (1.3-7.7); Neutrophils % (A) 68 %; Platelet Count 254 k/uL (150-450); RBC 4.04 m/uL (3.80-5.40); RDW 13.4 % (11.5-15.5); WBC 12.6 k/uL (3.8-10.6)
[2019-06-27 06:25] LABS: African American GFR (CKD) >90 (>60 ml/min/1.73 sqM); Anion Gap 6 mmol/L; Blood Urea Nitrogen 17 mg/dL (7-17); Calcium 8.5 mg/dL (8.4-10.2); Carbon Dioxide 34 mmol/L (22-30); Chloride 101 mmol/L (98-107); Glucose 95 mg/dL (74-99); Non-African American GFR(CKD) >90 (>60 ml/min/1.73 sqM); Potassium 3.4 mmol/L (3.5-5.1); Sodium 141 mmol/L (137-145)
[2019-06-27] MEDS ORDERED: LEVOTHYROXINE 75 MCG TAB PO SCH (06:30)
[2019-06-27] MEDS: BUDESONIDE 0.5 MG/2 ML NEBU INHALATION SCH (07:09)
[2019-06-27] MEDS: ALBUTEROL NEBULIZED 2.5 MG/3 ML INHALATION SCH ×2 (07:09→11:20)
[2019-06-27] MEDS ORDERED: CARVEDILOL 3.125 MG TAB PO SCH (07:30)
[2019-06-27 07:53] VITALS: TEMP 98.2
--- NOTE | 2019-06-27 08:27 | P.CRDCN ---
History of Present Illness Consult date: 06/27/19 Requesting physician: Elizabeth Short Chief complaint: Lower extremity edema History of present illness: This is a pleasant 68-year-old female who follows with Dr. Wright in the office. In November 2018 she underwent a cardiac catheterization which revealed severe single-vessel coronary artery disease involving the right coronary artery and the patient underwent stenting of that vessel, patient also has history of hypertension, hyperlipidemia, nicotine dependence, rheumatoid arthritis, hypothyroidism and COPD. She had a recent hospitalization for COPD exacerbation and possible tracheobronchitis. She presents to the hospital on this occasion with symptoms of bilateral lower extremity edema. Patient had been started recently on steroids, and since then she's noticed swelling in her legs. She denies any shortness of breath, she does have a cough but states that it's her usual cough from smoking. Blood pressure 116/60 with a heart rate in the 50s, 100% on room air. White blood cell count 12.6, hemoglobin 11.7, platelet count 254. Sodium 141, potassium 3.4, BUN 17 and creatinine 0.5. AST 41, ALT 68, troponins negative times one. BNP level 339, TSH 0.73. Patient was given a dose of IV Lasix in the emergency room, she states that she urinated frequently after that and that the edema in her lower extremities has improved significantly. Chest x-ray did not reveal any definite acute radiographic process although subtle findings can correlate with diagnosis of mild interstitial phase pulmonary edema. A venous duplex study of the bilateral lower extremities was also performed which was negative for DVT in bilateral lower extremities. Past Medical History Past Medical History: Coronary Artery Disease (CAD), COPD, Hyperlipidemia, Hypertension, Rheumatoid Arthritis (RA), Supraventricular Tachycardia (SVT), Thyroid Disorder Additional Past Medical History / Comment(s): salivary gland stone-resolved, IBS, CAD post NSTEMI with PCI of the RCA. , History of Any Multi-Drug Resistant Organisms: MRSA, Other MDRO Date of last positivie culture/infection: 2006 MDRO Source:: abscess top of rt leg Past Surgical History: Appendectomy, Section, Cholecystectomy, Heart Catheterization With Stent, Hysterectomy Past Anesthesia/Blood Transfusion Reactions: No Reported Reaction Date of Last Stent Placement:: 12/01 Past Psychological History: No Psychological Hx Reported Smoking Status: Current every day smoker Past Alcohol Use History: None Reported Additional Past Alcohol Use History / Comment(s): Patient is an occational smoker a few cigarettes per day. She denies any marijuana or illicit drug use. Occational alcohol use. Patient lives at home with her . Past Drug Use History: None Reported Additional Drug Use History / Comment(s): uses cannibis oil for R/A. instructed not to use at least 24 hours prior to procedure - Past Family History Father Family Medical History: Cancer Additional Family Medical History / Comment(s): Father at age 51 from lung cancer with metastatic disease. Mother Family Medical History: Rheumatoid Arthritis (RA) Additional Family Medical History / Comment(s): Mother at age 77 from old age but had history of rheumatoid arthritis. Brother(s) Additional Family Medical History / Comment(s): Patient had 1 brother that from complications of agent orange. Daughter(s) Additional Family Medical History / Comment(s): Patient is 3 children with no major medical problems. Sister(s) Family Medical History: Renal Disease, Vascular Disorder Medications and Allergies Home Medications Medication Instructions Recorded Confirmed Type Levothyroxine Sodium [Synthroid] 75 mcg PO DAILY 04/13/17 06/26/19 History Aspirin 325 mg PO DAILY #30 tab 12/09/18 06/26/19 Rx Atorvastatin [Lipitor] 80 mg PO HS #30 tab 12/09/18 06/26/19 Rx Clopidogrel [Plavix] 75 mg PO DAILY #30 tab 12/09/18 06/26/19 Rx Nitroglycerin Sl Tabs [Nitrostat] 0.4 mg SUBLINGUAL Q5M PRN #25 tab 12/09/18 06/26/19 Rx Carvedilol [Coreg] 3.125 mg PO BID 01/10/19 06/26/19 History Albuterol Nebulized [Ventolin 2.5 mg INHALATION QID 06/26/19 06/26/19 History Nebulized] Budesonide [Pulmicort] 0.5 mg INHALATION BID 06/26/19 06/26/19 History amLODIPine [Norvasc] 5 mg PO DAILY 06/26/19 06/26/19 History predniSONE See Taper PO DIRECTED 06/26/19 06/26/19 History Allergies Allergy/AdvReac Type Severity Reaction Status Date / Time adhesive tape Allergy Itching Verified 06/26/19 18:25 iodine Allergy Anaphylaxis Verified 06/26/19 18:25 latex Allergy Rash/Hives Verified 06/26/19 18:25 sulfamethoxazole Allergy Unknown Verified 06/26/19 18:25 [From Bactrim] trimethoprim [From Bactrim] Allergy Unknown Verified 06/26/19 18:25 STEROIDS AdvReac Unknown Uncoded 06/26/19 17:26 Physical Exam Vitals: Vital Signs Temp Pulse Pulse Resp BP BP Pulse Ox 06/27/19 07:55 52 L 18 06/27/19 07:51 98.2 F 52 L 18 115/65 100 06/27/19 07:28 80 06/27/19 07:11 82 06/27/19 04:40 97.6 F 76 18 136/80 92 L 06/27/19 00:11 86 06/27/19 00:01 86 06/26/19 23:00 97.5 F L 61 18 116/71 94 L 06/26/19 20:46 97.9 F 69 18 150/77 96 06/26/19 19:43 99 F 69 18 142/88 94 L 06/26/19 17:22 98.1 F 68 16 141/70 97 Intake and Output 06/26/19 06/27/19 06/27/19 22:59 06:59 14:59 Intake Total 240 Output Total 800 Balance -560 Intake: Oral 240 Output: Urine 800 Other: Voiding Method Toilet # Voids 3 Weight 90.718 kg 93.9 kg PHYSICAL EXAMINATION: GENERAL: 68-year-old female in no acute distress at the time of my examination HEENT: Head is atraumatic, normocephalic. Pupils equal, round. Sclera anicteric. Conjunctiva are clear. Mucous membranes of the mouth are moist. Neck is supple. There is no elevated jugular venous pressure. No carotid bruit is heard. HEART EXAMINATION: Heart S1, S2 normal. No murmur or gallop heard. CHEST EXAMINATION: Lungs reveal mild diminished air entry to the bases ABDOMEN: Soft, nontender. Bowel sounds are heard. No organomegaly noted. EXTREMITIES: 2+ peripheral pulses with trace evidence of peripheral edema and no calf tenderness noted. NEUROLOGIC patient is awake, alert and oriented 3 . . Results 06/27/19 05:07 06/27/19 05:07 Cardiac Enzymes 06/26/19 06/26/19 Range/Units 18:05 18:05 AST 41 H (14-36) U/L Troponin I <0.012 (0.000-0.034) ng/mL Coagulation 06/26/19 Range/Units 18:05 PT 10.2 (9.0-12.0) sec APTT 20.9 L (22.0-30.0) sec CBC 06/26/19 06/27/19 Range/Units 18:05 05:07 WBC 13.7 H 12.6 H (3.8-10.6) k/uL RBC 4.17 4.04 (3.80-5.40) m/uL Hgb 12.2 11.7 (11.4-16.0) gm/dL Hct 37.2 36.2 (34.0-46.0) % Plt Count 277 254 (150-450) k/uL Comprehensive Metabolic Panel 06/26/19 06/27/19 Range/Units 18:05 05:07 Sodium 141 141 (137-145) mmol/L Potassium 3.9 3.4 L (3.5-5.1) mmol/L Chloride 105 101 (98-107) mmol/L Carbon Dioxide 30 34 H (22-30) mmol/L BUN 18 H 17 (7-17) mg/dL Creatinine 0.60 0.55 (0.52-1.04) mg/dL Glucose 181 H 95 (74-99) mg/dL Calcium 8.6 8.5 (8.4-10.2) mg/dL AST 41 H (14-36) U/L ALT 68 H (9-52) U/L Alkaline Phosphatase 65 (38-126) U/L Total Protein 6.5 (6.3-8.2) g/dL Albumin 3.7 (3.5-5.0) g/dL Current Medications Generic Name Dose Route Start Last Admin Trade Name Freq PRN Reason Stop Dose Admin Albuterol Sulfate 2.5 mg 06/27/19 08:00 06/27/19 07:09 Ventolin Nebulized INHALATION 2.5 mg RT-QID DONAVON Administration Aspirin 325 mg 06/27/19 09:00 Aspirin PO DAILY [facility] Atorvastatin Calcium 80 mg 06/26/19 21:00 06/26/19 22:20 Lipitor PO 80 mg HS DONAVON Administration Budesonide 0.5 mg 06/27/19 08:00 06/27/19 07:09 Pulmicort INHALATION 0.5 mg RT-BID DONAVON Administration Carvedilol 3.125 mg 06/27/19 07:30 06/27/19 06:43 Coreg PO 3.125 mg BID-W/MEALS DONAVON Administration Clopidogrel Bisulfate 75 mg 06/27/19 09:00 Plavix PO DAILY DONAVON Furosemide 40 mg 06/27/19 08:00 Lasix IV Q12HR DONAVON Levothyroxine Sodium 75 mcg 06/27/19 06:30 06/27/19 06:43 Synthroid PO 75 mcg DAILY@0630 DONAVON Administration Naloxone HCl 0.2 mg 06/26/19 20:23 Narcan IV Q2M PRN Opioid Reversal Intake and Output 06/26/19 06/27/19 06/27/19 22:59 06:59 14:59 Intake Total 240 Output Total 800 Balance -560 Intake: Oral 240 Output: Urine 800 Other: Voiding Method Toilet # Voids 3 Weight 90.718 kg 93.9 kg 06/27/19 05:07 06/27/19 05:07 EKG Interpretations (text) EKG shows a normal sinus rhythm with anterior lateral ST-T wave changes. These changes are similar to prior EKG Assessment and Plan Plan: Assessment and plan #1 symptoms of lower extremity edema with no overt shortness of breath. Chest x-ray does suggest some subtle findings which could correlate with clinical diagnosis of mild interstitial phase pulmonary edema. BNP level 339. No overt evidence of congestive cardiac failure #2 recent hospitalization with tracheobronchitis and possible pneumonia, on steroids #3 COPD #4 coronary artery disease with recent stenting of the RCA in November this year #5 hypertension #6 hyperlipidemia #7 nicotine dependence #8 rheumatoid arthritis #9 hypothyroidism #10 hypokalemia Plan Patient's most recent echo was performed in December of this year and revealed an ejection fraction of 50-55%. We will repeat an echo on this admission. Decrease aspirin to 81 mg daily, continue Lipitor 80, Coreg 3.125 twice a day, Plavix 75 mg daily. His continue the IV Lasix after the patient has received her second dose. Patient may be stable for discharge home later today. Further recommendations to follow. DNP note has been reviewed, I agree with a documented findings and plan of care. Patient was seen and examined.
[2019-06-27] MEDS ORDERED: CLOPIDOGREL 75 MG TAB PO SCH (09:00)
[2019-06-27] MEDS ORDERED: ASPIRIN 81 MG PO SCH (09:00)
[2019-06-27] MEDS ORDERED: ASPIRIN 325 MG TAB PO SCH (09:00)
[2019-06-27] MEDS: FUROSEMIDE 10 MG/ML 4 ML VIAL IV SCH ×2 (09:33)
[2019-06-27] MEDS ORDERED: Potassium Replacement Protocol 1 EACH MISC MISCELLANE PRN (09:50)
--- NOTE | 2019-06-27 11:01 | ECHOF ---
Referral Reason:chf MEASUREMENTS -------- HEIGHT: 172.7 cm WEIGHT: 93.9 kg BP: RVIDd: 2.6 cm (< 3.3) IVSd: 1.2 cm (0.6 - 1.1) LVIDd: 3.7 cm (3.9 - 5.3) LVPWd: 1.3 cm (0.6 - 1.1) IVSs: 1.7 cm LVIDs: 2.0 cm LVPWs: 1.5 cm LAESV Index (A-L): 22.54 ml/m Ao Diam: 3.1 cm (2.0 - 3.7) AV Cusp: 1.8 cm (1.5 - 2.6) LA Diam: 3.5 cm (2.7 - 3.8) MV E Denny: 0.87 m/s MV DecT: 205 ms MV A Denny: 0.70 m/s MV E/A Ratio: 1.25 RAP: 5.00 mmHg RVSP: 23.86 mmHg TAPSE: 23.97 mm FINDINGS -------- Sinus rhythm. This was a technically good study. The left ventricular size is normal. Left ventricular wall thickness is normal. Overall left vent ricular systolic function is normal with, an EF between 55 - 60 %. Normal LAP Grade 1 Diastolic Dys function. The right ventricle is normal in size. The right ventricular systolic function is normal. The left atrial size is normal. Normal LA size by volume 22+/-6 ml/m2. The right atrial size is normal. Interatrial and interventricular septum intact. The aortic valve is trileaflet and appears structurally normal. The mitral valve is normal. The mitral valve leaflets are mildly thickened. Mild mitral regurgita tion is present. The tricuspid valve appears structurally normal. Trace tricuspid regurgitation present. Right vikas tricular systolic pressure is normal at < 35 mmHg. There is no pulmonic regurgitation present. The aortic root size is normal. Normal inferior vena cava with normal inspiratory collapse consistent with estimated right atrial pre ssure of 5 mmHg. There is no pericardial effusion. CONCLUSIONS -------- 1. Sinus rhythm. 2. This was a technically good study. 3. The left ventricular size is normal. 4. Left ventricular wall thickness is normal. 5. Overall left ventricular systolic function is normal with, an EF between 55 - 60 %. 6. Normal LAP Grade 1 Diastolic Dysfunction. 7. The right ventricle is normal in size. 8. The right ventricular systolic function is normal. 9. The left atrial size is normal. 10. Normal LA size by volume 22+/-6 ml/m2. 11. The right atrial size is normal. 12. Interatrial and interventricular septum intact. 13. The aortic valve is trileaflet and appears structurally normal. 14. The mitral valve is normal. 15. The mitral valve leaflets are mildly thickened. 16. Mild mitral regurgitation is present. 17. The tricuspid valve appears structurally normal. 18. Trace tricuspid regurgitation present. 19. Right ventricular systolic pressure is normal at < 35 mmHg. 20. There is no pulmonic regurgitation present. 21. The aortic root size is normal. 22. Normal inferior vena cava with normal inspiratory collapse consistent with estimated right atrial pressure of 5 mmHg. 23. There is no pericardial effusion. [employer]: [place] Sprague RDCS
[2019-06-27 12:51] VITALS: BP 124/77; PULSE 66; RESP 16
[2019-06-27] MEDS: POTASSIUM CHLORIDE ER 20 MEQ TAB.ER PO SCH (12:52)
--- NOTE | 2019-06-27 13:29 | P.HPIM ---
History of Present Illness H&P Date: 06/27/19 Chief Complaint: Lower extremity edema HISTORY AND PHYSICAL AND DISCHARGE SUMMARY: This is a 68-year-old female patient of Dr. Watts and Dr. Anne Lubin with past medical history of hypertension, hyperlipidemia, nicotine dependence, rheumatoid arthritis, hypothyroidism and COPD. In November 2018 she underwent a cardiac catheterization which revealed severe single-vessel coronary artery disease involving the right coronary artery and the patient underwent stenting of that vessel. She had a recent hospitalization earlier this month for acute hypoxic respiratory failure secondary to COPD exacerbation and failure of outpatient treatment for pneumonia. Patient was discharged home on prednisone, azithromycin. Patient complains of increasing lower extremity edema to the fact that she couldn't move or bend her foot. She states she was also lightheaded. She also complains of shortness of breath. Patient came into [facility] emergency center for evaluation. Blood pressure 116/60 with a heart rate in the 50s, 100% on room air. White blood cell count 12.6, hemoglobin 11.7, platelet count 254. Sodium 141, potassium 3.4, BUN 17 and creatinine 0.5. AST 41, ALT 68, troponins negative times one. BNP level 339, TSH 0.73. Patient was given a dose of IV Lasix 40 mg in the emergency room. She urinated frequently after that and the edema in her lower extremities has improved significantly. She states she would like to go home today as her was just discharged from the hospital yesterday and he is having trouble. Chest x-ray did not reveal any definite acute radiographic process although subtle findings can correlate with diagnosis of mild interstitial phase pulmonary edema. A venous duplex study of the bilateral lower extremities was also performed which was negative for DVT in bilateral lower extremities. Patient was placed on the cardiac stepdown unit and cardiology consult requested. Patient has been started on Lasix 40 mg IV every 12 hours and echocardiogram has been ordered which revealed EF of 55-60%, mild mitral regurgitation, trace tricuspid regurgitation. Patient has been instructed to stop prednisone, hold amlodipine and prescriptions for Lasix and potassium have been provided. The patient will be discharged home today in stable condition. Review of Systems Constitutional: Reports fatigue, Denies chills, Denies fever, Denies poor appetite, Denies weight loss Eyes: denies blurred vision, denies pain Ears, nose, mouth and throat: Denies dysphagia, Denies headache, Denies nasal congestion, Denies nasal discharge, Denies sore throat, Denies vertigo Cardiovascular: Reports decreased exercise tolerance, Reports dyspnea on exertion, Reports edema, Reports leg edema, Reports shortness of breath, Denies chest pain, Denies palpitations, Denies syncope Respiratory: Reports dyspnea, Denies cough, Denies cough with sputum, Denies excessive sputum, Denies hemoptysis, Denies home oxygen, Denies respiratory infections, Denies wheezing Gastrointestinal: Denies abdominal pain, Denies diarrhea, Denies loss of appetite, Denies nausea, Denies vomiting Genitourinary: Denies dysuria, Denies hematuria, Denies urgency, Denies urinary frequency Musculoskeletal: Denies frequent falls, Denies gait dysfunction, Denies muscle weakness, Denies myalgias Integumentary: Denies pruritus, Denies rash, Denies wounds Neurological: Denies change in mentation, Denies change in speech, Denies numbness, Denies seizures, Denies weakness Psychiatric: Denies anxiety, Denies depression Endocrine: Denies fatigue, Denies weight change Past Medical History Past Medical History: Coronary Artery Disease (CAD), COPD, Hyperlipidemia, Hypertension, Rheumatoid Arthritis (RA), Supraventricular Tachycardia (SVT), Thyroid Disorder Additional Past Medical History / Comment(s): salivary gland stone-resolved, IBS , CAD post NSTEMI with PCI of the RCA. , History of Any Multi-Drug Resistant Organisms: MRSA, Other MDRO Date of last positivie culture/infection: 2006 MDRO Source:: abscess top of rt leg Past Surgical History: Appendectomy, Section, Cholecystectomy, Heart Catheterization With Stent, Hysterectomy Past Anesthesia/Blood Transfusion Reactions: No Reported Reaction Date of Last Stent Placement:: 12/01 Past Psychological History: No Psychological Hx Reported Smoking Status: Current every day smoker Past Alcohol Use History: None Reported Additional Past Alcohol Use History / Comment(s): Patient smoked half a pack per day for 40 years or more and currently smoking per day. She denies any marijuana or illicit drug use. Occational alcohol use. Patient lives at home with her . Past Drug Use History: None Reported Additional Drug Use History / Comment(s): uses cannibis oil for R/A. instructed not to use at least 24 hours prior to procedure - Past Family History Father Family Medical History: Cancer Additional Family Medical History / Comment(s): Father at age 51 from lung cancer with metastatic disease. Mother Family Medical History: Rheumatoid Arthritis (RA) Additional Family Medical History / Comment(s): Mother at age 77 from old age but had history of rheumatoid arthritis. Brother(s) Additional Family Medical History / Comment(s): Patient had 1 brother that from complications of agent orange. Daughter(s) Additional Family Medical History / Comment(s): Patient is 3 children with no major medical problems. Sister(s) Family Medical History: Renal Disease, Vascular Disorder Medications and Allergies Home Medications Medication Instructions Recorded Confirmed Type Levothyroxine Sodium [Synthroid] 75 mcg PO DAILY 04/13/17 06/26/19 History Atorvastatin [Lipitor] 80 mg PO HS #30 tab 12/09/18 06/26/19 Rx Clopidogrel [Plavix] 75 mg PO DAILY #30 tab 12/09/18 06/26/19 Rx Nitroglycerin Sl Tabs [Nitrostat] 0.4 mg SUBLINGUAL Q5M PRN #25 tab 12/09/18 06/26/19 Rx Carvedilol [Coreg] 3.125 mg PO BID 01/10/19 06/26/19 History Albuterol Nebulized [Ventolin 2.5 mg INHALATION QID 06/26/19 06/26/19 History Nebulized] Budesonide [Pulmicort] 0.5 mg INHALATION BID 06/26/19 06/26/19 History Aspirin 81 mg PO DAILY chew 06/27/19 Rx Furosemide [Lasix] 40 mg PO DAILY #30 tablet 06/27/19 Rx Potassium Chloride ER [K-Dur 20] 20 meq PO DAILY #30 tab 06/27/19 Rx Allergies Allergy/AdvReac Type Severity Reaction Status Date / Time adhesive tape Allergy Itching Verified 06/26/19 18:25 iodine Allergy Anaphylaxis Verified 06/26/19 18:25 latex Allergy Rash/Hives Verified 06/26/19 18:25 sulfamethoxazole Allergy Unknown Verified 06/26/19 18:25 [From Bactrim] trimethoprim [From Bactrim] Allergy Unknown Verified 06/26/19 18:25 STEROIDS AdvReac Unknown Uncoded 06/26/19 17:26 Physical Exam Vitals: Vital Signs Temp Pulse Pulse Resp BP BP Pulse Ox 06/27/19 07:55 52 L 18 06/27/19 07:51 98.2 F 52 L 18 115/65 100 06/27/19 07:28 80 06/27/19 07:11 82 06/27/19 04:40 97.6 F 76 18 136/80 92 L 06/27/19 00:11 86 06/27/19 00:01 86 06/26/19 23:00 97.5 F L 61 18 116/71 94 L 06/26/19 20:46 97.9 F 69 18 150/77 96 06/26/19 19:43 99 F 69 18 142/88 94 L 06/26/19 17:22 98.1 F 68 16 141/70 97 Intake and Output 06/26/19 06/27/19 06/27/19 22:59 06:59 14:59 Intake Total 240 240 Output Total 800 Balance -560 240 Intake: Oral 240 240 Output: Urine 800 Other: Voiding Method Toilet # Voids 3 2 Weight 90.718 kg 93.9 kg Gen: This is a 68-year-old female. Patient is sitting up in bed and appears to be comfortable and in no acute distress. HEENT: Head is atraumatic, normocephalic. Pupils equal, round. Sclerae is anicteric. NECK: Supple. No JVD. No lymphadenopathy. No thyromegaly. LUNGS: Clear to auscultation. No wheezes or rhonchi. No intercostal retractions . HEART: Regular rate and rhythm. No murmur. ABDOMEN: Soft. Bowel sounds are present. No masses. No tenderness. EXTREMITIES: No pedal edema. No calf tenderness. Dorsalis pedis +2 bilaterally. NEUROLOGICAL: Patient is awake, alert and oriented x3. Cranial nerves 2 through 12 are grossly intact. Results CBC & Chem 7: 06/27/19 05:07 06/27/19 05:07 Labs: Abnormal Lab Results - Last 24 Hours (Table) 06/26/19 06/26/19 06/26/19 Range/Units 18:05 18:05 18:05 WBC 13.7 H (3.8-10.6) k/uL Neutrophils # 11.7 H (1.3-7.7) k/uL APTT 20.9 L (22.0-30.0) sec Potassium (3.5-5.1) mmol/L Carbon Dioxide (22-30) mmol/L BUN 18 H (7-17) mg/dL Glucose 181 H (74-99) mg/dL AST 41 H (14-36) U/L ALT 68 H (9-52) U/L 06/27/19 06/27/19 Range/Units 05:07 05:07 WBC 12.6 H (3.8-10.6) k/uL Neutrophils # 8.6 H (1.3-7.7) k/uL APTT (22.0-30.0) sec Potassium 3.4 L (3.5-5.1) mmol/L Carbon Dioxide 34 H (22-30) mmol/L BUN (7-17) mg/dL Glucose (74-99) mg/dL AST (14-36) U/L ALT (9-52) U/L Thrombosis Risk Factor Assmnt - Choose All That Apply Each Factor Represents 1 point: Medical pt on bed rest, Obesity (BMI >25), Swollen legs (current) Each Risk Factor Represents 2 Points: Age 61-74 years Thrombosis Risk Factor Assessment Total Risk Factor Score: 5 Thrombosis Risk Factor Assessment Level: High Risk Assessment and Plan Plan: 1. Lower extremity edema with mild pulmonary edema, no evidence of heart failure. Most likely side effect from steroid use. Steroids will be discontinued and patient will be discharged home on Lasix and potassium. 2. Recent hospitalization for COPD exacerbation and pneumonia. Steroids discontinued. 3. Coronary artery disease status post angioplasty and stent placement RCA. 4. Chronic tobacco use and dependence. 5. Hypertension. 6. Hyperlipidemia. 7. Hypothyroidism. 8. Rheumatoid arthritis. Patient placed in observation status. Discharge plan: Return home. Discharge Medication List Levothyroxine Sodium [Synthroid] 75 mcg PO DAILY 04/13/17 [History] Atorvastatin [Lipitor] 80 mg PO HS #30 tab 12/09/18 [Rx] Clopidogrel [Plavix] 75 mg PO DAILY #30 tab 12/09/18 [Rx] Nitroglycerin Sl Tabs [Nitrostat] 0.4 mg SUBLINGUAL Q5M PRN #25 tab 12/09/18 [Rx ] Carvedilol [Coreg] 3.125 mg PO BID 01/10/19 [History] Albuterol Nebulized [Ventolin Nebulized] 2.5 mg INHALATION QID 11/12/19 [History] Budesonide [Pulmicort] 0.5 mg INHALATION BID 06/26/19 [History] Aspirin 81 mg PO DAILY chew 06/27/19 [Rx] Furosemide [Lasix] 40 mg PO DAILY #30 tablet 06/27/19 [Rx] Potassium Chloride ER [K-Dur 20] 20 meq PO DAILY #30 tab 06/27/19 [Rx] Impression and plan of care have been directed as dictated by the signing physician. Lore Wiggins nurse practitioner acting as scribe for signing physician.
== END 2019-06-27 14:01 | disposition home or self-care (01) ==
LOC: EC 17:21 → 3SCARD 20:23
PROVIDERS: ADMIT Internal Medicine; ATTEND Internal Medicine
DX: R60.0 Localized edema (principal); E87.6 Hypokalemia; J81.1 Chronic pulmonary edema; J44.9 Chronic obstructive pulmonary disease, unspecified; I25.10 Atherosclerotic heart disease of native coronary artery without angina pectoris; M06.9 Rheumatoid arthritis, unspecified; I10 Essential (primary) hypertension; R55 Syncope and collapse; R42 Dizziness and giddiness; E78.5 Hyperlipidemia, unspecified; I47.1 Supraventricular tachycardia; K58.9 Irritable bowel syndrome, unspecified; E03.9 Hypothyroidism, unspecified; F17.210 Nicotine dependence, cigarettes, uncomplicated; I08.1 Rheumatic disorders of both mitral and tricuspid valves; E66.9 Obesity, unspecified; Z68.31 Body mass index [BMI] 31.0-31.9, adult; Z79.890 Hormone replacement therapy; Z79.899 Other long term (current) drug therapy; Z79.02 Long term (current) use of antithrombotics/antiplatelets; Z79.82 Long term (current) use of aspirin; Z79.51 Long term (current) use of inhaled steroids; Z88.1 Allergy status to other antibiotic agents; Z91.040 Latex allergy status; Z88.2 Allergy status to sulfonamides; Z88.8 Allergy status to other drugs, medicaments and biological substances; Z91.048 Other nonmedicinal substance allergy status; I25.2 Old myocardial infarction; Z86.14 Personal history of Methicillin resistant Staphylococcus aureus infection; Z90.49 Acquired absence of other specified parts of digestive tract; Z90.710 Acquired absence of both cervix and uterus; Z87.01 Personal history of pneumonia (recurrent); Z87.19 Personal history of other diseases of the digestive system; Z95.5 Presence of coronary angioplasty implant and graft; Z80.1 Family history of malignant neoplasm of trachea, bronchus and lung; Z82.61 Family history of arthritis; Z84.89 Family history of other specified conditions; Z84.1 Family history of disorders of kidney and ureter
CPT/HCPCS: 96376; 96374; 99285; 36415; 94640 ×2; 93005; 93306; 83880; 80053; 80048; 84443; 84484; 85025 ×2; 85610; 85730; 71046; 93970; G0378 ×2; J1940 ×2

== ENCOUNTER 2019-10-07 16:24 | Observation (INO) | payer MEDICARE ==
[2019-10-07 16:33] VITALS: RESP 18
--- NOTE | 2019-10-07 16:59 | ED ---
General Adult HPI - General Chief complaint: Chest Pain Stated complaint: Chest pain Time Seen by Provider: 10/07/19 16:35 Source: patient, family, EMS Mode of arrival: EMS Limitations: no limitations - History of Present Illness Initial comments: Patient presents to the ED by ambulance for evaluation with her son and at bedside. Patient states that she developed substernal chest pressure and squeezing about 20 minutes ago while at rest. Patient states that her pain radiated to her neck. Patient states that her pain has since resolved. Patient received aspirin and 1 sublingual nitroglycerin in the ambulance, and she reports relief with the nitroglycerin that she received. Patient denies having any symptoms currently. Patient denies trauma or injury, fever or chills, headache, focal neuro deficit, arm pain, back pain, pleuritic pain, dyspnea, cough or cold symptoms, palpitations, dizziness, nausea/vomiting/diaphoresis, abdominal pain, urinary symptoms, leg or calf swelling or pain, or any other symptoms or complaints. Patient does have a cardiac history, and she states that she has had a stent placed in the past. - Related Data Home Medications Medication Instructions Recorded Confirmed Levothyroxine Sodium [Synthroid] 75 mcg PO DAILY 04/13/17 10/07/19 Metoprolol Succinate [Toprol XL] 25 mg PO HS 10/07/19 10/07/19 amLODIPine [Norvasc] 5 mg PO DAILY 10/07/19 10/07/19 Previous Rx's Medication Instructions Recorded Atorvastatin [Lipitor] 80 mg PO HS #30 tab 12/09/18 Clopidogrel [Plavix] 75 mg PO DAILY #30 tab 12/09/18 Nitroglycerin Sl Tabs [Nitrostat] 0.4 mg SUBLINGUAL Q5M PRN #25 tab 12/09/18 Aspirin 81 mg PO DAILY chew 06/27/19 Allergies Allergy/AdvReac Type Severity Reaction Status Date / Time adhesive tape Allergy Rash/Hives Verified 10/07/19 17:10 iodine Allergy Anaphylaxis Verified 10/07/19 17:10 latex Allergy Rash/Hives Verified 10/07/19 17:10 sulfamethoxazole Allergy Unknown Verified 10/07/19 17:10 [From Bactrim] trimethoprim [From Bactrim] Allergy Unknown Verified 10/07/19 17:10 STEROIDS AdvReac Confusion Uncoded 10/07/19 17:10 Review of Systems ROS Statement: Those systems with pertinent positive or pertinent negative responses have been documented in the HPI. ROS Other: All systems not noted in ROS Statement are negative. Past Medical History Past Medical History: Coronary Artery Disease (CAD), COPD, Hyperlipidemia, Hypertension, Rheumatoid Arthritis (RA), Supraventricular Tachycardia (SVT), Thyroid Disorder Additional Past Medical History / Comment(s): salivary gland stone-resolved, IBS, CAD post NSTEMI with PCI of the RCA. , History of Any Multi-Drug Resistant Organisms: MRSA, Other MDRO Date of last positivie culture/infection: 2006 MDRO Source:: abscess top of rt leg Past Surgical History: Appendectomy, Section, Cholecystectomy, Heart Catheterization With Stent, Hysterectomy Past Anesthesia/Blood Transfusion Reactions: No Reported Reaction Date of Last Stent Placement:: 12/01 Past Psychological History: No Psychological Hx Reported Smoking Status: Current some day smoker Past Alcohol Use History: None Reported Past Drug Use History: None Reported - Past Family History Father Family Medical History: Cancer Additional Family Medical History / Comment(s): Father at age 51 from lung cancer with metastatic disease. Mother Family Medical History: Rheumatoid Arthritis (RA) Additional Family Medical History / Comment(s): Mother at age 77 from old age but had history of rheumatoid arthritis. Brother(s) Additional Family Medical History / Comment(s): Patient had 1 brother that from complications of agent orange. Daughter(s) Additional Family Medical History / Comment(s): Patient is 3 children with no major medical problems. Sister(s) Family Medical History: Renal Disease, Vascular Disorder General Exam Limitations: no limitations General appearance: alert, in no apparent distress Head exam: Present: atraumatic, normocephalic Eye exam: Present: normal appearance, EOMI ENT exam: Present: mucous membranes moist Neck exam: Present: other (Trachea is in midline) Respiratory exam: Present: normal lung sounds bilaterally. Absent: respiratory distress, wheezes, rales, rhonchi, chest wall tenderness Cardiovascular Exam: Present: regular rate, normal rhythm, normal heart sounds, other (Normal radial pulses bilaterally) GI/Abdominal exam: Present: soft. Absent: distended, tenderness Extremities exam: Present: other (Negative Kathya's sign bilaterally). Absent: tenderness, pedal edema, calf tenderness Neurological exam: Present: alert, oriented X3. Absent: motor sensory deficit Psychiatric exam: Present: normal affect, normal mood Skin exam: Present: warm, dry, intact, normal color Course Vital Signs 10/07/19 16:26 Temperature 98.1 F Pulse Rate 70 Respiratory 18 Rate Blood Pressure 119/75 O2 Sat by Pulse 95 Oximetry - Reevaluation(s) Reevaluation #1: 10/07/19 18:12 Case, H&P, test results and EMS management were discussed with Dr. Alcantara. He accepts hospital admission. He recommends placing the patient on a heparin IV drip. He also recommends cardiology consultation. He has no further recommendations at this time. 10/07/19 18:24 Patient continues to deny having any chest pain or symptoms while in the ED. Patient remains alert and breathing comfortably. Patient and family are aware of the patient's test results and my discussion with Dr. Alcantara as above. Patient agrees with hospital admission this time. EKG Findings - EKG Comments: EKG Findings:: Normal sinus rhythm, no ectopy, ventricular rate of 71 bpm, normal MO and QRS intervals, normal QT interval, normal axis, no ST elevation, anterolateral ST and T-wave abnormality, no significant change compared to 06/26/2019 EKG Medical Decision Making - Medical Decision Making Given the patient's history of CAD, abnormal EKG and heart score of 5, will admit the patient to the hospital for further ACS evaluation and treatment. Patient's initial troponin is negative. Patient is currently pain-free. Dr. Alcantara has accepted hospital admission. Cardiology has been consulted. - Lab Data Result diagrams: 10/07/19 17:12 10/07/19 17:12 Lab Results 10/07/19 10/07/19 10/07/19 Range/Units 17:12 17:12 17:12 WBC 7.5 (3.8-10.6) k/uL RBC 4.17 (3.80-5.40) m/uL Hgb 10.6 L (11.4-16.0) gm/dL Hct 34.2 (34.0-46.0) % MCV 82.1 (80.0-100.0) fL MCH 25.4 (25.0-35.0) pg MCHC 30.9 L (31.0-37.0) g/dL RDW 14.5 (11.5-15.5) % Plt Count 280 (150-450) k/uL Neutrophils % 70 % Lymphocytes % 17 % Monocytes % 6 % Eosinophils % 3 % Basophils % 1 % Neutrophils # 5.3 (1.3-7.7) k/uL Lymphocytes # 1.3 (1.0-4.8) k/uL Monocytes # 0.5 (0-1.0) k/uL Eosinophils # 0.2 (0-0.7) k/uL Basophils # 0.1 (0-0.2) k/uL Hypochromasia Slight PT (9.0-12.0) sec INR (<1.2) APTT (22.0-30.0) sec Sodium 139 (137-145) mmol/L Potassium 4.2 (3.5-5.1) mmol/L Chloride 104 (98-107) mmol/L Carbon Dioxide 31 H (22-30) mmol/L Anion Gap 4 mmol/L BUN 13 (7-17) mg/dL Creatinine 0.65 (0.52-1.04) mg/dL Est GFR (CKD-EPI)AfAm >90 (>60 ml/min/1.73 sqM) Est GFR (CKD-EPI)NonAf >90 (>60 ml/min/1.73 sqM) Glucose 103 H (74-99) mg/dL Calcium 8.6 (8.4-10.2) mg/dL Magnesium 2.1 (1.6-2.3) mg/dL Total Bilirubin 0.4 (0.2-1.3) mg/dL AST 27 (14-36) U/L ALT 15 (4-34) U/L Alkaline Phosphatase 94 (38-126) U/L Troponin I (0.000-0.034) ng/mL NT-Pro-B Natriuret Pep 212 pg/mL Total Protein 6.5 (6.3-8.2) g/dL Albumin 3.7 (3.5-5.0) g/dL 10/07/19 10/07/19 Range/Units 17:12 17:12 WBC (3.8-10.6) k/uL RBC (3.80-5.40) m/uL Hgb (11.4-16.0) gm/dL Hct (34.0-46.0) % MCV (80.0-100.0) fL MCH (25.0-35.0) pg MCHC (31.0-37.0) g/dL RDW (11.5-15.5) % Plt Count (150-450) k/uL Neutrophils % % Lymphocytes % % Monocytes % % Eosinophils % % Basophils % % Neutrophils # (1.3-7.7) k/uL Lymphocytes # (1.0-4.8) k/uL Monocytes # (0-1.0) k/uL Eosinophils # (0-0.7) k/uL Basophils # (0-0.2) k/uL Hypochromasia PT 9.6 (9.0-12.0) sec INR 0.9 (<1.2) APTT 21.4 L (22.0-30.0) sec Sodium (137-145) mmol/L Potassium (3.5-5.1) mmol/L Chloride (98-107) mmol/L Carbon Dioxide (22-30) mmol/L Anion Gap mmol/L BUN (7-17) mg/dL Creatinine (0.52-1.04) mg/dL Est GFR (CKD-EPI)AfAm (>60 ml/min/1.73 sqM) Est GFR (CKD-EPI)NonAf (>60 ml/min/1.73 sqM) Glucose (74-99) mg/dL Calcium (8.4-10.2) mg/dL Magnesium (1.6-2.3) mg/dL Total Bilirubin (0.2-1.3) mg/dL AST (14-36) U/L ALT (4-34) U/L Alkaline Phosphatase (38-126) U/L Troponin I <0.012 (0.000-0.034) ng/mL NT-Pro-B Natriuret Pep pg/mL Total Protein (6.3-8.2) g/dL Albumin (3.5-5.0) g/dL - Radiology Data Radiology results: image reviewed (Chest x-ray is negative) Disposition Clinical Impression: Chest pain Disposition: ADMITTED IP TO THIS [facility] Condition: Stable Is patient prescribed a controlled substance at d/c from ED?: No Referrals: Jeramie Watts DO [Primary Care Provider] - 1-2 days Time of Disposition: 18:12
--- NOTE | 2019-10-07 17:02 | XR ---
EXAMINATION TYPE: XR chest 2V DATE OF EXAM: 10/07/2019 COMPARISON: 06/26/2019 HISTORY: Chest pain TECHNIQUE: FINDINGS: Heart and mediastinum are normal. Lungs are clear. Diaphragm is normal. Bony thorax is inta ct. The pulmonary vascularity is normal. There are chest leads. IMPRESSION: No active cardiopulmonary disease. Normal heart. No adverse change.
[2019-10-07 17:19] LABS: Basophils # (A) 0.1 k/uL (0-0.2); Basophils % (A) 1 %; Eosinophils # (A) 0.2 k/uL (0-0.7); Eosinophils % (A) 3 %; HCT 34.2 % (34.0-46.0); HGB 10.6 gm/dL (11.4-16.0); Hypochromasia Slight; Lymphocytes # (A) 1.3 k/uL (1.0-4.8); Lymphocytes % (A) 17 %; MCH 25.4 pg (25.0-35.0); MCHC 30.9 g/dL (31.0-37.0); MCV 82.1 fL (80.0-100.0); Mean Platelet Volume 8.3; Monocytes # (A) 0.5 k/uL (0-1.0); Monocytes % (A) 6 %; Neutrophils # (A) 5.3 k/uL (1.3-7.7); Neutrophils % (A) 70 %; Platelet Count 280 k/uL (150-450); RBC 4.17 m/uL (3.80-5.40); RDW 14.5 % (11.5-15.5); WBC 7.5 k/uL (3.8-10.6)
[2019-10-07 17:34] LABS: INR 0.9 (<1.2); Prothrombin Time 9.6 sec (9.0-12.0)
[2019-10-07 17:36] LABS: ALT 15 U/L (4-34); AST 27 U/L (14-36); African American GFR (CKD) >90 (>60 ml/min/1.73 sqM); Albumin 3.7 g/dL (3.5-5.0); Alkaline Phosphatase 94 U/L (38-126); Anion Gap 4 mmol/L; Blood Urea Nitrogen 13 mg/dL (7-17); Calcium 8.6 mg/dL (8.4-10.2); Carbon Dioxide 31 mmol/L (22-30); Chloride 104 mmol/L (98-107); Glucose 103 mg/dL (74-99); Magnesium 2.1 mg/dL (1.6-2.3); Non-African American GFR(CKD) >90 (>60 ml/min/1.73 sqM); Potassium 4.2 mmol/L (3.5-5.1); Sodium 139 mmol/L (137-145); Total Bilirubin 0.4 mg/dL (0.2-1.3); Total Protein 6.5 g/dL (6.3-8.2)
[2019-10-07 17:37] LABS: Partial Thromboplastin Time 21.4 sec (22.0-30.0)
[2019-10-07] MEDS ORDERED: HEPARIN SODIUM,PORCINE 5,000 UNIT/ML 1 ML VIAL IV PRN (18:14)
[2019-10-07] MEDS ORDERED: HEPARIN SODIUM,PORCINE 5,000 UNIT/ML 1 ML VIAL IV ONE (18:14)
[2019-10-07] MEDS ORDERED: NITROGLYCERIN SL TABS 0.4 MG TAB SUBLINGUAL PRN (18:14)
[2019-10-07] MEDS ORDERED: HEPARIN SOD,PORK IN 0.45% NACL 25,000 UNIT in 0.45% NACL 1 250ML.BAG IV SCH (18:15)
[2019-10-07] MEDS ORDERED: METOPROLOL SUCCINATE (ER) 25 MG TAB.ER.24H PO SCH (21:00)
[2019-10-07] MEDS ORDERED: ATORVASTATIN 80 MG TAB PO SCH (21:00)
--- NOTE | 2019-10-08 05:30 | P.HPIM ---
History of Present Illness H&P Date: 10/08/19 Chief Complaint: Recurrent chest pain and angina, CAD, hypertension, rheumatoid arthritis, t 68-year-old female one of Dr. Gomes patient with past medical history of CAD post PCI and stent placement who seen Dr. [facility] regular basis had history of significant coronary artery disease post PCI in the mid RCA history of hypertension hyperlipidemia and chronic nicotine dependency and mild COPD who developed to have midsternal chest pain on 223 was acute severe subsided with sublingual nitroglycerin of up to have mild left arm numbness along with discomfort radiating to her throat and neck felt mild lightheadedness and dizziness as well with mild nausea feeling and cold sweat and up coming to the emergency department at [facility] where was seen and evaluated CK with troponin was negative she found mild anemia compati ble with her last blood work. Patient was started on heparin and admitted to the hospital with diagnosis of unstable angina. We'll continue CK with troponin times 3 repeat EKG echocardiogram and consult cardiology. Review of Systems CONSTITUTIONAL: Well-developed no acute respiratory distress. EYES: No icterus sclerae, no conjunctivitis. EARS, NOSE, MOUTH, THROAT, and FACE: No sore throat, lymphadenopathy, carotid bruits or deformity. RESPIRATORY: No SOB cough or wheezes. CARDIOVASCULAR: Positive chest pain and angina positive PND and orthopnea GASTROINTESTINAL: No Abd pain, Nausea or vomiting, no Diarrhea or constipation, No GI Bleed, no distention or masses. Mild indigestion and heartburn GENITOURINARY: Negative for Hematuria or UTI, no kidney stones. INTEGUMENT/BREAST: Negative for any muscular injury with mild osteoarthritis.. HEMATOLOGIC/LYMPHATIC: Negative for bleed or purpura. MUSCULOSKELTAL: Negative for Myalgia or arthralgia. NEURLOGICAL: No LOC, Sz or syncope, blurred vision dizziness or abnormality.. BEHAVIORAL/PSYCH: Negative. ENDOCRINE: Negative. Past Medical History Past Medical History: Coronary Artery Disease (CAD), COPD, Hyperlipidemia, Hypertension, Rheumatoid Arthritis (RA), Supraventricular Tachycardia (SVT), Thyroid Disorder Additional Past Medical History / Comment(s): salivary gland stone-resolved, IBS, CAD post NSTEMI with PCI of the RCA. , History of Any Multi-Drug Resistant Organisms: MRSA, Other MDRO Date of last positivie culture/infection: 2006 MDRO Source:: abscess top of rt leg Past Surgical History: Appendectomy, Section, Cholecystectomy, Heart Catheterization With Stent, Hysterectomy Past Anesthesia/Blood Transfusion Reactions: No Reported Reaction Date of Last Stent Placement:: 12/01 Past Psychological History: No Psychological Hx Reported Smoking Status: Current every day smoker Past Alcohol Use History: None Reported Additional Past Alcohol Use History / Comment(s): Patient smoked half a pack per day for 40 years or more and currently smoking per day. She denies any marijua na or illicit drug use. Occational alcohol use. Patient lives at home with her . Past Drug Use History: None Reported Additional Drug Use History / Comment(s): uses cannibis oil for R/A. instructed not to use at least 24 hours prior to procedure - Past Family History Father Family Medical History: Cancer Additional Family Medical History / Comment(s): Father at age 51 from lung cancer with metastatic disease. Mother Family Medical History: Rheumatoid Arthritis (RA) Additional Family Medical History / Comment(s): Mother at age 77 from old age but had history of rheumatoid arthritis. Brother(s) Additional Family Medical History / Comment(s): Patient had 1 brother that from complications of agent orange. Daughter(s) Additional Family Medical History / Comment(s): Patient is 3 children with no major medical problems. Sister(s) Family Medical History: Renal Disease, Vascular Disorder Medications and Allergies Home Medications Medication Instructions Recorded Confirmed Type Levothyroxine Sodium [Synthroid] 75 mcg PO DAILY 04/13/17 10/07/19 History Atorvastatin [Lipitor] 80 mg PO HS #30 tab 12/09/18 10/07/19 Rx Clopidogrel [Plavix] 75 mg PO DAILY #30 tab 12/09/18 10/07/19 Rx Nitroglycerin Sl Tabs [Nitrostat] 0.4 mg SUBLINGUAL Q5M PRN #25 tab 12/09/18 10/07/19 Rx Aspirin 81 mg PO DAILY chew 06/27/19 10/07/19 Rx Metoprolol Succinate [Toprol XL] 25 mg PO HS 10/07/19 10/07/19 History amLODIPine [Norvasc] 5 mg PO DAILY 10/07/19 10/07/19 History Isosorbide Mononitrate ER [Imdur] 15 mg PO DAILY #30 dose 10/08/19 Rx Pantoprazole Sodium 40 mg PO DAILY #30 tablet. 10/08/19 Rx Allergies Allergy/AdvReac Type Severity Reaction Status Date / Time adhesive tape Allergy Rash/Hives Verified 10/07/19 17:10 iodine Allergy Anaphylaxis Verified 10/07/19 17:10 latex Allergy Rash/Hives Verified 10/07/19 17:10 sulfamethoxazole Allergy Unknown Verified 10/07/19 17:10 [From Bactrim] trimethoprim [From Bactrim] Allergy Unknown Verified 10/07/19 17:10 STEROIDS AdvReac Confusion Uncoded 10/07/19 17:10 Physical Exam Vitals: Vital Signs Temp Pulse Pulse Resp BP BP Pulse Ox 10/08/19 04:00 98.4 F 69 18 118/63 91 L 10/08/19 00:00 98.3 F 70 18 106/51 90 L 10/07/19 20:00 98.3 F 71 18 114/68 90 L 10/07/19 18:27 72 18 147/86 97 10/07/19 16:26 98.1 F 70 18 119/75 95 Intake and Output 10/07/19 10/07/19 10/08/19 14:59 22:59 06:59 Intake Total 186.507 Balance 186.507 Intake: Intake, IV Titration 186.507 Amount Heparin Sod,Pork in 0.45% 186.507 NaCl 25,000 unit In 0.45 % NaCl 1 250ml.bag @ 12 UNITS/KG/HR 9.798 mls/hr IV .Q24H [facility] Rx#: [id number] Other: Weight 81.647 kg 92.6 kg General Appearance: Alert, cooperative, no distress, appears stated age. Neck HEENT: Supple, no lymphadenopathy, no thyroid enlargement, no carotid bruits. Lungs: Clear to auscultation without crackles or wheezes no rhonchi, no deformity. Chest Wall: Chest wall normal expansion with deep inspiration no tenderness and no deformity was found on exam, no costochondral pain or discomfort. Heart: Regular rate and rhythm, S1, S2 normal, no murmur, rub or gallop. Back: Symmetric, no curvature, ROM normal, no CVA tenderness. Abdomen: Soft, non-tender, bowel sounds active all four quadrants, no masses, no organomegaly. Extremities: Extremities normal, atraumatic, no cyanosis or edema. Pulses: 2+ and symmetric. Skin: Skin color, texture, tugor normal, no rashes or lesions. Neurologic: Alert oriented x3 cranial nerves II through XII intact, no motor deficit, no abnormal balance or gait. Results CBC & Chem 7: 10/08/19 05:13 10/07/19 17:12 Labs: Abnormal Lab Results - Last 24 Hours (Table) 10/07/19 10/07/19 10/07/19 Range/Units 17:12 17:12 17:12 Hgb 10.6 L (11.4-16.0) gm/dL MCHC 30.9 L (31.0-37.0) g/dL APTT 21.4 L (22.0-30.0) sec Carbon Dioxide 31 H (22-30) mmol/L Glucose 103 H (74-99) mg/dL 10/08/19 Range/Units 02:47 Hgb (11.4-16.0) gm/dL MCHC (31.0-37.0) g/dL APTT 38.9 H (22.0-30.0) sec Carbon Dioxide (22-30) mmol/L Glucose (74-99) mg/dL Thrombosis Risk Factor Assmnt - Choose All That Apply Any of the Below Risk Factors Present?: Yes Each Factor Represents 1 point: Acute ID, Obesity (BMI >25) Other Risk Factors: Yes Each Risk Factor Represents 2 Points: Age 61-74 years Other congenital or acquired thrombophilia - If yes, enter type in comment: No Thrombosis Risk Factor Assessment Total Risk Factor Score: 4 Thrombosis Risk Factor Assessment Level: Moderate Risk Assessment and Plan Plan: 1 recurrent chest pain and angina: Admit patient to the hospital, consult cardiology, CK with troponin 3, echocardiogram and order nuclear stress test depend result with sudden further management if it's completely negative will add longer acting nitroglycerin like Imdur 30 mg daily along with PPI discharge patient home otherwise patient might need heart cath. 2 history of CAD post PCI and stent placement in the mid RCA seeing cardiology regular basis her testing are up-to-date continue beta jp and aspirin and Plavix along with statin. 3 recurrent GERD and heartburn: Patient can benefit from PPI Will add pantopr azole 40 mg a day as a trial for the next 30 days. 4 Hypertension: Doing very well on amlodipine 5 mg a day and metoprolol XL 25 mg a day resume medication. 5 hypothyroidism: Remain on levothyroxine 75 g daily continue medication. 6 hyperlipidemia: Continue atorvastatin 80 mg daily. 7 COPD with chronic nicotine dependency patient has quit so far no need for any inhaler or updraft treatment this point. 8 GERD/GI prophylaxis: Will add pantoprazole 40 mg daily. CODE STATUS: Full code. Admit patient to observation status for overnight.
[2019-10-08 05:51] LABS: Basophils # (A) 0.1 k/uL (0-0.2); Basophils % (A) 1 %; Eosinophils # (A) 0.2 k/uL (0-0.7); Eosinophils % (A) 3 %; HCT 33.9 % (34.0-46.0); HGB 10.4 gm/dL (11.4-16.0); Hypochromasia Moderate; Lymphocytes # (A) 1.5 k/uL (1.0-4.8); Lymphocytes % (A) 20 %; MCH 25.6 pg (25.0-35.0); MCHC 30.7 g/dL (31.0-37.0); MCV 83.2 fL (80.0-100.0); Mean Platelet Volume 8.1; Monocytes # (A) 0.5 k/uL (0-1.0); Monocytes % (A) 6 %; Neutrophils % (A) 68 %; Platelet Count 239 k/uL (150-450); RBC 4.07 m/uL (3.80-5.40); RDW 14.5 % (11.5-15.5); WBC 7.3 k/uL (3.8-10.6)
[2019-10-08 06:04] LABS: Cholesterol 87 mg/dL (<200); HDL Cholesterol 56 mg/dL (40-60); LDL Cholesterol,Calculated 17 mg/dL (0-99); Triglycerides 71 mg/dL (<150)
[2019-10-08] MEDS ORDERED: LEVOTHYROXINE 75 MCG TAB PO SCH (06:30)
[2019-10-08] MEDS ORDERED: DOBUTamine DRIP for NUC MED 500 MG in DEXTROSE/WATER 1 250ML.BAG IV ONE (08:30)
[2019-10-08] MEDS ORDERED: CLOPIDOGREL 75 MG TAB PO SCH (09:00)
[2019-10-08] MEDS ORDERED: ASPIRIN 325 MG TAB PO SCH (09:00)
[2019-10-08] MEDS ORDERED: amLODIPine 5 MG TAB PO SCH (09:00)
--- NOTE | 2019-10-08 10:02 | P.CRDCN ---
History of Present Illness History of present illness: HISTORY OF PRESENTING ILLNESS This is a pleasant 68-year-old female past medical history significant for coronary artery disease s/p PCI to the mid RCA, hypertension, dyslipidemia and chronic nicotine dependence. She follows in the office with Amee Armendariz. We have been asked to see in consultation for chest pain. She states on Tuesday she had a episode of feeling quite dizzy while walking from the living room to the kitchen. She had to brace herself against the wall and wait for the episode to pass. Her son was there with her at the time. She had no other symptoms and the episode subsided after about 20 seconds. Tuesday while sitting down watching television she had an acute onset of tightness in the mid sternal region with radiation up into her neck and throat. She felt tight and like she couldn't swallow. This lasted a few minutes. No associated symptoms. Then again on Tuesday she had a similar experience with chest tightness and radiation into the neck while at rest. Given her history she came to the ER for further evaluation. Her symptoms were different when she needed a stent in November. At that time she had all pain in the back. DIAGNOSTICS EKG reveals sinus mechanism with T-wave inversions in the lateral anterior precordial leads. Consistent with previous EKGs. No acute changes noted.. Chest xray negative for an acute cardiopulmonary process. Laboratory reviewed, WBC 7.3, hemoglobin 10.4, platelets 239, sodium 139, potassium 4.2, creatinine 0.65, magnesium 2.1, cardiac enzymes negative 3, NT proBNP 212, LDL 17. Current cardiac medications include aspirin 81 mg daily, atorvastatin 80 mg daily, Plavix 75 mg daily, Toprol 25 mg at bedtime and amlodipine 5 mg daily. Most recent echocardiogram obtained in November 2018 revealed preserved LV systolic function with ejection fraction 55-60%, grade 1 diastolic dysfunction and mild mitral regurgitation. Cardiac catheterization performed November 2018 revealed significant stenosis of the mid RCA and mild plaque noted in the LAD. She underwent successful PCI of the mid RCA that time. REVIEW OF SYSTEMS At the time of my exam: CONSTITUTIONAL: Denies fever or chills. CARDIOVASCULAR: Denies chest pain, shortness of breath, orthopnea, PND or palpitations. RESPIRATORY: Denies cough. GASTROINTESTINAL: Denies abdominal pain, diarrhea, constipation, nausea or vomiting. MUSCULOSKELETAL: Denies myalgias. NEUROLOGIC: Denies numbness, tingling or weakness. ENDOCRINE: Denies fatigue, weight change, polydipsia or polyurina. GENITOURINARY: Denies burning, hematuria or urgency with micturation. HEMATOLOGIC: Denies history of anemia or bleeding. PHYSICAL EXAMINATION Blood pressure 111/69 heart rate 71 afebrile and maintaining oxygen saturation on room air. CONSTITUTIONAL: No apparent distress. HEENT: Head is normocephalic. Pupils are equal, round. Sclerae anicteric. Mucous membranes of the mouth are moist. No JVD. No carotid bruit. CHEST EXAMINATION: Lungs are clear to auscultation. No chest wall tenderness is noted on palpation or with deep breathing. HEART EXAMINATION: Regular rate and rhythm. S1, S2 heard. No murmurs, gallops or rub. ABDOMEN: Soft, nontender. Positive bowel sounds. EXTREMITIES: 2+ peripheral pulses, no lower extremity edema and no calf tenderness. NEUROLOGIC EXAMINATION: Patient is awake, alert and oriented x3. ASSESSMENT Chest pain, an acute coronary event has been ruled out. Hypertension Dyslipidemia Coronary artery disease status post PCI of the mid RCA maintained on dual antiplatelet therapy Chronic nicotine dependence Obesity, BMI 32 PLAN An acute coronary event has been ruled out. Decrease aspirin to 81 mg daily. Discontinue heparin infusion. Proceed with dobutamine stress echocardiogram to assess for stress-induced cardiac ischemia. If stress test is normal she is stable for discharge from a cardiac perspective to follow-up with Dr. Lubin in the office. Smoking cessation recommended. Thank you kindly for this consultation. Nurse Practitioner note has been reviewed, I agree with a documented findings and plan of care. Patient was seen and examined. Past Medical History Past Medical History: Coronary Artery Disease (CAD), COPD, Hyperlipidemia, Hypertension, Rheumatoid Arthritis (RA), Supraventricular Tachycardia (SVT), Thyroid Disorder Additional Past Medical History / Comment(s): salivary gland stone-resolved, IBS, CAD post NSTEMI with PCI of the RCA. , History of Any Multi-Drug Resistant Organisms: MRSA, Other MDRO Date of last positivie culture/infection: 2006 MDRO Source:: abscess top of rt leg Past Surgical History: Appendectomy, Section, Cholecystectomy, Heart Catheterization With Stent, Hysterectomy Past Anesthesia/Blood Transfusion Reactions: No Reported Reaction Date of Last Stent Placement:: 12/01 Past Psychological History: No Psychological Hx Reported Smoking Status: Current every day smoker Past Alcohol Use History: None Reported Additional Past Alcohol Use History / Comment(s): Patient smoked half a pack per day for 40 years or more and currently smoking per day. She denies any marij uana or illicit drug use. Occational alcohol use. Patient lives at home with her . Past Drug Use History: None Reported Additional Drug Use History / Comment(s): uses cannibis oil for R/A. instructed not to use at least 24 hours prior to procedure - Past Family History Father Family Medical History: Cancer Additional Family Medical History / Comment(s): Father at age 51 from lung cancer with metastatic disease. Mother Family Medical History: Rheumatoid Arthritis (RA) Additional Family Medical History / Comment(s): Mother at age 77 from old age but had history of rheumatoid arthritis. Brother(s) Additional Family Medical History / Comment(s): Patient had 1 brother that from complications of agent orange. Daughter(s) Additional Family Medical History / Comment(s): Patient is 3 children with no major medical problems. Sister(s) Family Medical History: Renal Disease, Vascular Disorder Medications and Allergies Home Medications Medication Instructions Recorded Confirmed Type Levothyroxine Sodium [Synthroid] 75 mcg PO DAILY 04/13/17 10/07/19 History Atorvastatin [Lipitor] 80 mg PO HS #30 tab 12/09/18 10/07/19 Rx Clopidogrel [Plavix] 75 mg PO DAILY #30 tab 12/09/18 10/07/19 Rx Nitroglycerin Sl Tabs [Nitrostat] 0.4 mg SUBLINGUAL Q5M PRN #25 tab 12/09/18 10/07/19 Rx Aspirin 81 mg PO DAILY chew 06/27/19 10/07/19 Rx Metoprolol Succinate [Toprol XL] 25 mg PO HS 10/07/19 10/07/19 History amLODIPine [Norvasc] 5 mg PO DAILY 10/07/19 10/07/19 History Allergies Allergy/AdvReac Type Severity Reaction Status Date / Time adhesive tape Allergy Rash/Hives Verified 10/07/19 17:10 iodine Allergy Anaphylaxis Verified 10/07/19 17:10 latex Allergy Rash/Hives Verified 10/07/19 17:10 sulfamethoxazole Allergy Unknown Verified 10/07/19 17:10 [From Bactrim] trimethoprim [From Bactrim] Allergy Unknown Verified 10/07/19 17:10 STEROIDS AdvReac Confusion Uncoded 10/07/19 17:10 Physical Exam Vitals: Vital Signs Temp Pulse Pulse Resp BP BP Pulse Ox 10/08/19 08:00 97.8 F 71 18 111/69 92 L 10/08/19 04:00 98.4 F 69 18 118/63 91 L 10/08/19 00:00 98.3 F 70 18 106/51 90 L 10/07/19 20:00 98.3 F 71 18 114/68 90 L 10/07/19 18:27 72 18 147/86 97 10/07/19 16:26 98.1 F 70 18 119/75 95 Intake and Output 10/07/19 10/08/19 10/08/19 22:59 06:59 14:59 Intake Total 186.507 Balance 186.507 Intake: Intake, IV Titration 186.507 Amount Heparin Sod,Pork in 0.45% 186.507 NaCl 25,000 unit In 0.45 % NaCl 1 250ml.bag @ 12 UNITS/KG/HR 9.798 mls/hr IV .Q24H [facility] Rx#: [id number] Other: Voiding Method Toilet Weight 81.647 kg 92.6 kg Results 10/08/19 05:13 10/07/19 17:12 Cardiac Enzymes 10/07/19 10/07/19 10/07/19 Range/Units 17:12 17:12 23:48 AST 27 (14-36) U/L Troponin I <0.012 <0.012 (0.000-0.034) ng/mL 10/08/19 Range/Units 05:13 AST (14-36) U/L Troponin I <0.012 (0.000-0.034) ng/mL Coagulation 10/07/19 10/08/19 Range/Units 17:12 02:47 PT 9.6 (9.0-12.0) sec APTT 21.4 L 38.9 H (22.0-30.0) sec Lipids 10/08/19 Range/Units 05:13 Triglycerides 71 (<150) mg/dL Cholesterol 87 (<200) mg/dL HDL Cholesterol 56 (40-60) mg/dL CBC 10/07/19 10/08/19 Range/Units 17:12 05:13 WBC 7.5 7.3 (3.8-10.6) k/uL RBC 4.17 4.07 (3.80-5.40) m/uL Hgb 10.6 L 10.4 L (11.4-16.0) gm/dL Hct 34.2 33.9 L (34.0-46.0) % Plt Count 280 239 (150-450) k/uL Comprehensive Metabolic Panel 10/07/19 Range/Units 17:12 Sodium 139 (137-145) mmol/L Potassium 4.2 (3.5-5.1) mmol/L Chloride 104 (98-107) mmol/L Carbon Dioxide 31 H (22-30) mmol/L BUN 13 (7-17) mg/dL Creatinine 0.65 (0.52-1.04) mg/dL Glucose 103 H (74-99) mg/dL Calcium 8.6 (8.4-10.2) mg/dL AST 27 (14-36) U/L ALT 15 (4-34) U/L Alkaline Phosphatase 94 (38-126) U/L Total Protein 6.5 (6.3-8.2) g/dL Albumin 3.7 (3.5-5.0) g/dL Current Medications Generic Name Dose Route Start Last Admin Trade Name Freq PRN Reason Stop Dose Admin Amlodipine Besylate 5 mg 10/08/19 09:00 Norvasc PO DAILY [facility] Aspirin 325 mg 10/08/19 09:00 Aspirin PO DAILY [facility] Atorvastatin Calcium 80 mg 10/07/19 21:00 10/07/19 20:47 Lipitor PO 80 mg HS [facility] Administration Clopidogrel Bisulfate 75 mg 10/08/19 09:00 Plavix PO DAILY [facility] Heparin Sodium (Porcine) 0 unit 10/07/19 18:14 Heparin IV PER PROTOCOL PRN Low PTT Protocol Heparin Sodium/Sodium Chloride 250 mls @ 9.798 mls/hr 10/07/19 18:15 10/08/19 04:40 25,000 unit/ Sodium Chloride IV 14 units/kg/hr .Q24H [facility] 11.431 mls/hr Titration Protocol 12 UNITS/KG/HR Dobutamine HCl/Dextrose 500 mg 250 mls @ 27.78 mls/hr 10/08/19 08:30 / IV Solution IV 10/08/19 17:29 .Q9H [facility] Protocol 10 MCG/KG/MIN Levothyroxine Sodium 75 mcg 10/08/19 06:30 10/08/19 03:15 Synthroid PO Not Given DAILY@0630 [facility] Metoprolol Succinate 25 mg 10/07/19 21:00 10/07/19 20:47 Toprol Xl PO 25 mg HS [facility] Administration Nitroglycerin 0.4 mg 10/07/19 18:14 Nitrostat SUBLINGUAL Q5M PRN Chest Pain Intake and Output 10/07/19 10/08/19 10/08/19 22:59 06:59 14:59 Intake Total 186.507 Balance 186.507 Intake: Intake, IV Titration 186.507 Amount Heparin Sod,Pork in 0.45% 186.507 NaCl 25,000 unit In 0.45 % NaCl 1 250ml.bag @ 12 UNITS/KG/HR 9.798 mls/hr IV .Q24H [facility] Rx#: [id number] Other: Voiding Method Toilet Weight 81.647 kg 92.6 kg 10/08/19 05:13 10/07/19 17:12
[2019-10-08 11:06] VITALS: BP 114/72; PULSE 89; TEMP 97.5
--- NOTE | 2019-10-08 12:08 | ECHOS ---
STRESS ECHOCARDIOGRAM LUMASON: 1 Vial INDICATION: Chest pain. BASELINE HEART RATE: 68 BASELINE BLOOD PRESSURE: 126/75 MAXIMUM HEART RATE: 99 MAXIMUM BLOOD PRESSURE: 153/41 85% MPHR: 129 100% MPHR: 152 MAXIMUM STAGE REACHED: 4 TOTAL EXERCISE TIME: 10:15 CLINICAL INFORMATION: This is a 68-year-old female with chest pain, underwent a dobutamine stress echo with Definity contrast. Baseline heart rate 68 beats per minute. Baseline blood pressure 126/75 mmHg. Baseline 12-lead ECG shows sinus rhythm with abnormal ST-segment. It is in the inferior leads with biphasic T-waves, T-wave inversions in leads 1 aVL and inverted T- waves V2 to V6. The patient received dobutamine infusion per protocol. Peak heart rate at 99 beats per minute. Normal blood pressure response. There was pseudo normalization of the ST segments. There was pseudo normalization of the T-waves with [address]-depression. No arrhythmia is noted. The baseline 2D echo images showed normal LV size systolic function without segmental wall motion abnormalities. Dobutamine there was stepwise increment in overall LV contractility without developing any wall motion abnormalities. At recovery, regional global LV systolic function remained normal. IMPRESSION: 1. Abnormal ECG at baseline with pseudo normalization of T-waves. 2. No echocardiographic evidence for ischemia. 3. No arrhythmias. MMODL / IJN: [id number] /
--- NOTE | 2019-10-08 12:24 | P.DS ---
Providers Date of admission: 10/07/19 18:14 Expected date of discharge: 10/08/19 Attending physician: Marcelo Alcantara Consults: 10/07/19 18:14 Consult Physician Urgent Consulting Provider: Hair Encarnacion Consult Reason/Comments: chest pain Do you want consulting provider notified?: Yes Primary care physician: [facility] Course: Chief Complaint: Recurrent chest pain and angina, CAD, hypertension, rheumatoid arthritis, t 68-year-old female one of Dr. Gomes patient with past medical history of CAD post PCI and stent placement who seen Dr. [facility] regular basis had history of significant coronary artery disease post PCI in the mid RCA history of hypertension hyperlipidemia and chronic nicotine dependency and mild COPD who developed to have midsternal chest pain on 223 was acute severe subsided with sublingual nitroglycerin of up to have mild left arm numbness along with discomfort radiating to her throat and neck felt mild lightheadedness and dizziness as well with mild nausea feeling and cold sweat and up coming to the emergency department at [facility] where was seen and evaluated CK with troponin was negative she found mild anemia compatible with her last blood work. Patient was started on heparin and admitted to the hospital with diagnosis of unstable angina. We'll continue CK with troponin times 3 repeat EKG echocardiogram and consult cardiology. Review of Systems CONSTITUTIONAL: Well-developed no acute respiratory distress. EYES: No icterus sclerae, no conjunctivitis. EARS, NOSE, MOUTH, THROAT, and FACE: No sore throat, lymphadenopathy, carotid bruits or deformity. RESPIRATORY: No SOB cough or wheezes. CARDIOVASCULAR: Positive chest pain and angina positive PND and orthopnea GASTROINTESTINAL: No Abd pain, Nausea or vomiting, no Diarrhea or constipation, No GI Bleed, no distention or masses. Mild indigestion and heartburn GENITOURINARY: Negative for Hematuria or UTI, no kidney stones. INTEGUMENT/BREAST: Negative for any muscular injury with mild osteoarthritis.. HEMATOLOGIC/LYMPHATIC: Negative for bleed or purpura. MUSCULOSKELTAL: Negative for Myalgia or arthralgia. NEURLOGICAL: No LOC, Sz or syncope, blurred vision dizziness or abnormality.. BEHAVIORAL/PSYCH: Negative. ENDOCRINE: Negative. Physical Exam Vitals: Vital Signs Temp Pulse Pulse Resp BP BP Pulse Ox 10/08/19 04:00 98.4 F 69 18 118/63 91 L 10/08/19 00:00 98.3 F 70 18 106/51 90 L 10/07/19 20:00 98.3 F 71 18 114/68 90 L 10/07/19 18:27 72 18 147/86 97 10/07/19 16:26 98.1 F 70 18 119/75 95 Intake and Output 10/07/19 10/07/19 10/08/19 14:59 22:59 06:59 Intake Total 186.507 Balance 186.507 Intake: Intake, IV Titration 186.507 Amount Heparin Sod,Pork in 0.45% 186.507 NaCl 25,000 unit In 0.45 % NaCl 1 250ml.bag @ 12 UNITS/KG/HR 9.798 mls/hr IV .Q24H [facility] Rx#: [id number] Other: Weight 81.647 kg 92.6 kg General Appearance: Alert, cooperative, no distress, appears stated age. Neck HEENT: Supple, no lymphadenopathy, no thyroid enlargement, no carotid bruits. Lungs: Clear to auscultation without crackles or wheezes no rhonchi, no deformity. Chest Wall: Chest wall normal expansion with deep inspiration no tenderness and no deformity was found on exam, no costochondral pain or discomfort. Heart: Regular rate and rhythm, S1, S2 normal, no murmur, rub or gallop. Back: Symmetric, no curvature, ROM normal, no CVA tenderness. Abdomen: Soft, non-tender, bowel sounds active all four quadrants, no masses, no organomegaly. Extremities: Extremities normal, atraumatic, no cyanosis or edema. Pulses: 2+ and symmetric. Skin: Skin color, texture, tugor normal, no rashes or lesions. Neurologic: Alert oriented x3 cranial nerves II through XII intact, no motor deficit, no abnormal balance or gait. Assessment and Plan Plan: 1 recurrent chest pain and angina: Admit patient to the hospital, consult cardiology, CK with troponin 3, echocardiogram and order nuclear stress test depend result with sudden further management if it's completely negative will add longer acting nitroglycerin like Imdur 30 mg daily along with PPI discharge patient home otherwise patient might need heart cath. 2 history of CAD post PCI and stent placement in the mid RCA seeing cardiology regular basis her testing are up-to-date continue beta jp and aspirin and Plavix along with statin. 3 recurrent GERD and heartburn: Patient can benefit from PPI Will add pantoprazole 40 mg a day as a trial for the next 30 days. 4 Hypertension: Doing very well on amlodipine 5 mg a day and metoprolol XL 25 mg a day resume medication. 5 hypothyroidism: Remain on levothyroxine 75 g daily continue medication. 6 hyperlipidemia: Continue atorvastatin 80 mg daily. 7 COPD with chronic nicotine dependency patient has quit so far no need for any inhaler or updraft treatment this point. 8 GERD/GI prophylaxis: Will add pantoprazole 40 mg daily. Hospital course: Patient ended up going for echo stress test came back negative, we added pantoprazole and M door patient is doing very well will be discharged home today to follow-up with Dr. Wright and Dr. Gomes as an outpatient next few days if further complaint return to the emergency room. Patient Condition at Discharge: Stable Plan - Discharge Summary Discharge Rx Participant: No New Discharge Prescriptions: New Isosorbide Mononitrate ER [Imdur] 15 mg PO DAILY #30 dose Pantoprazole Sodium 40 mg PO DAILY #30 tablet. Continue Levothyroxine Sodium [Synthroid] 75 mcg PO DAILY Atorvastatin [Lipitor] 80 mg PO HS #30 tab Nitroglycerin Sl Tabs [Nitrostat] 0.4 mg SUBLINGUAL Q5M PRN #25 tab PRN Reason: Chest Pain Clopidogrel [Plavix] 75 mg PO DAILY #30 tab Aspirin 81 mg PO DAILY chew amLODIPine [Norvasc] 5 mg PO DAILY Metoprolol Succinate [Toprol XL] 25 mg PO HS Discharge Medication List Levothyroxine Sodium [Synthroid] 75 mcg PO DAILY 04/13/17 [History] Atorvastatin [Lipitor] 80 mg PO HS #30 tab 12/09/18 [Rx] Clopidogrel [Plavix] 75 mg PO DAILY #30 tab 12/09/18 [Rx] Nitroglycerin Sl Tabs [Nitrostat] 0.4 mg SUBLINGUAL Q5M PRN #25 tab 12/09/18 [Rx] Aspirin 81 mg PO DAILY chew 06/27/19 [Rx] Metoprolol Succinate [Toprol XL] 25 mg PO HS 10/07/19 [History] amLODIPine [Norvasc] 5 mg PO DAILY 10/07/19 [History] Isosorbide Mononitrate ER [Imdur] 15 mg PO DAILY #30 dose 10/08/19 [Rx] Pantoprazole Sodium 40 mg PO DAILY #30 tablet. 10/08/19 [Rx] Follow up Appointment(s)/Referral(s): Jeramie Watts DO [Primary Care Provider] - 1-2 days Cristian Lubin MD [STAFF PHYSICIAN] - 2 Weeks
[2019-10-09] MEDS ORDERED: ASPIRIN 81 MG PO SCH (09:00)
== END 2019-10-08 12:55 | disposition home or self-care (01) ==
LOC: EC 16:24 → 1SOBS 18:14
PROVIDERS: ADMIT Internal Medicine; ATTEND Internal Medicine
DX: R07.89 Other chest pain (principal); I25.110 Atherosclerotic heart disease of native coronary artery with unstable angina pectoris; I10 Essential (primary) hypertension; E78.5 Hyperlipidemia, unspecified; E03.9 Hypothyroidism, unspecified; J44.9 Chronic obstructive pulmonary disease, unspecified; F17.210 Nicotine dependence, cigarettes, uncomplicated; K21.9 Gastro-esophageal reflux disease without esophagitis; E66.9 Obesity, unspecified; Z68.32 Body mass index [BMI] 32.0-32.9, adult; M06.9 Rheumatoid arthritis, unspecified; D64.9 Anemia, unspecified; Z95.5 Presence of coronary angioplasty implant and graft; I25.2 Old myocardial infarction; Z79.899 Other long term (current) drug therapy; Z79.82 Long term (current) use of aspirin; Z79.890 Hormone replacement therapy; Z79.02 Long term (current) use of antithrombotics/antiplatelets; Z91.040 Latex allergy status; Z88.2 Allergy status to sulfonamides; Z88.8 Allergy status to other drugs, medicaments and biological substances; Z91.048 Other nonmedicinal substance allergy status
CPT/HCPCS: 96366 ×2; 96376; 96365; 99285; 36415; 93005 ×2; 83880; 80061; 80053; 83735; 84484 ×2; 85025 ×2; 85610; 85730 ×2; 71046; G0378 ×2; C8930; J1250; J1644 ×2; Q9950; 93351

== ENCOUNTER 2020-01-10 13:36 | Observation (INO) | payer MEDICARE ==
[2020-01-10] MEDS ORDERED: KETOROLAC 30 MG/ML 1 ML VIAL IVP STA (14:01)
--- NOTE | 2020-01-10 14:12 | ED ---
General Adult HPI - General Source: patient, RN notes reviewed, old records reviewed Mode of arrival: EMS Limitations: no limitations <Rasheed Maxwell - Last Filed: 01/10/20 14:09> <Mike Phillip - Last Filed: 01/10/20 20:57> - General Chief complaint: Urogenital Stated complaint: Groin Pain Time Seen by Provider: 01/10/20 13:51 - History of Present Illness Initial comments: 69-year-old female presenting with left groin pain. Patient denies injury, denies fall or trauma. She states the pain began yesterday and has progressed to the point where she cannot bear weight on her left lower extremity. Pain is medial aspect of the proximal left lower extremity and groin region. She denies dysuria or hematuria. She denies flank pain. She denies back pain. Denies vomiting or diarrhea. Denies changes in her bowels. Denies fever or chills. She states the pain is localized to her right groin, does not travel down her leg. No complaints of foot or ankle pain, no knee pain. (Rasheed Maxwell) - Related Data Home Medications Medication Instructions Recorded Confirmed Levothyroxine Sodium [Synthroid] 75 mcg PO DAILY 04/13/17 10/07/19 Metoprolol Succinate [Toprol XL] 25 mg PO HS 10/07/19 10/07/19 amLODIPine [Norvasc] 5 mg PO DAILY 10/07/19 10/07/19 Previous Rx's Medication Instructions Recorded Atorvastatin [Lipitor] 80 mg PO HS #30 tab 12/09/18 Clopidogrel [Plavix] 75 mg PO DAILY #30 tab 12/09/18 Nitroglycerin Sl Tabs [Nitrostat] 0.4 mg SUBLINGUAL Q5M PRN #25 tab 12/09/18 Aspirin 81 mg PO DAILY chew 06/27/19 Isosorbide Mononitrate ER [Imdur] 15 mg PO DAILY #30 dose 10/08/19 Pantoprazole Sodium 40 mg PO DAILY #30 tablet. 10/08/19 Allergies Allergy/AdvReac Type Severity Reaction Status Date / Time adhesive tape Allergy Rash/Hives Verified 01/10/20 13:44 iodine Allergy Anaphylaxis Verified 01/10/20 13:44 latex Allergy Rash/Hives Verified 01/10/20 13:44 sulfamethoxazole Allergy Unknown Verified 01/10/20 13:44 [From Bactrim] trimethoprim [From Bactrim] Allergy Unknown Verified 01/10/20 13:44 STEROIDS AdvReac Confusion Uncoded 01/10/20 13:44 Review of Systems ROS Other: All systems not noted in ROS Statement are negative. <Rasheed Maxwell - Last Filed: 01/10/20 14:09> ROS Other: All systems not noted in ROS Statement are negative. <Mike Phillip - Last Filed: 01/10/20 20:57> ROS Statement: Those systems with pertinent positive or pertinent negative responses have been documented in the HPI. Past Medical History Past Medical History: Coronary Artery Disease (CAD), COPD, Hyperlipidemia, Hypertension, Rheumatoid Arthritis (RA), Supraventricular Tachycardia (SVT), Thyroid Disorder Additional Past Medical History / Comment(s): salivary gland stone-resolved, IBS, CAD post NSTEMI with PCI of the RCA. , History of Any Multi-Drug Resistant Organisms: MRSA, Other MDRO Date of last positivie culture/infection: 2006 MDRO Source:: abscess top of rt leg Past Surgical History: Appendectomy, Section, Cholecystectomy, Heart Catheterization With Stent, Hysterectomy Past Anesthesia/Blood Transfusion Reactions: No Reported Reaction Date of Last Stent Placement:: 12/01 Past Psychological History: No Psychological Hx Reported Smoking Status: Current every day smoker Past Alcohol Use History: None Reported Past Drug Use History: None Reported - Past Family History Father Family Medical History: Cancer Additional Family Medical History / Comment(s): Father at age 51 from lung cancer with metastatic disease. Mother Family Medical History: Rheumatoid Arthritis (RA) Additional Family Medical History / Comment(s): Mother at age 77 from old age but had history of rheumatoid arthritis. Brother(s) Additional Family Medical History / Comment(s): Patient had 1 brother that from complications of agent orange. Daughter(s) Additional Family Medical History / Comment(s): Patient is 3 children with no major medical problems. Sister(s) Family Medical History: Renal Disease, Vascular Disorder <Rasheed Maxwell - Last Filed: 01/10/20 14:09> General Exam Limitations: no limitations General appearance: alert, in no apparent distress Head exam: Present: atraumatic, normocephalic Eye exam: Present: normal appearance, PERRL ENT exam: Present: normal exam Neck exam: Present: normal inspection. Absent: tenderness, meningismus Respiratory exam: Present: normal lung sounds bilaterally. Absent: respiratory distress, wheezes Cardiovascular Exam: Present: regular rate, normal rhythm GI/Abdominal exam: Present: soft. Absent: distended, tenderness, guarding, rebound, rigid External exam: Present: normal external exam. Absent: erythema, swelling, lesions, lacerations, ecchymosis Extremities exam: Present: normal inspection. Absent: full ROM (Significant pain with range of motion of the left hip particularly external rotation. No external signs of trauma, no ecchymosis, distal pulses are intact, normal range of motion at the knee.) Neurological exam: Present: alert, oriented X3, CN II-XII intact. Absent: motor sensory deficit Psychiatric exam: Present: normal affect, normal mood Skin exam: Present: warm, dry, intact, normal color. Absent: rash, cyanosis, diaphoretic <Rasheed Maxwell - Last Filed: 01/10/20 14:09> Course Vital Signs 01/10/20 01/10/20 01/10/20 13:37 16:52 17:59 Temperature 98.6 F Pulse Rate 82 73 Respiratory 16 18 20 Rate Blood Pressure 118/93 134/83 139/69 O2 Sat by Pulse 92 L 92 L 92 L Oximetry 01/10/20 01/10/20 01/10/20 18:22 18:30 20:12 Temperature 98.6 F Pulse Rate 78 86 86 Respiratory 18 Rate Blood Pressure 150/71 O2 Sat by Pulse 98 Oximetry Medical Decision Making - Lab Data Result diagrams: 01/10/20 14:22 01/10/20 14:22 <Mike Phillip - Last Filed: 01/10/20 20:57> - Medical Decision Making I went back in the room to see if the patient could ambulate she was having a very hard time ambulating and did not think she could make it at home with the pain in her hip. X-ray did not show any fractures. CAT scan was ordered a CAT scan did not show any fractures ever do show fluid around the joint. When I went back in the room patient stated she has been much more short of breath over the last few days and thinks she is having exacerbation of her COPD. Patient's oxygenation was desaturating with any kind of exertion. This point, her chest x-ray some lab work and gave the patient breathing treatment with some steroids. EKG shows normal sinus rhythm at 70 bpm OR interval 232 QRS is 78 QT interval 36 QTC is 440. Patient's EKG shows no ST segment elevation or depression. (Mike Phillip) - Lab Data Lab Results 01/10/20 01/10/20 01/10/20 Range/Units 14:22 14:22 16:55 WBC 11.6 H (3.8-10.6) k/uL RBC 4.89 (3.80-5.40) m/uL Hgb 10.3 L (11.4-16.0) gm/dL Hct 35.2 (34.0-46.0) % MCV 71.9 L (80.0-100.0) fL MCH 21.1 L (25.0-35.0) pg MCHC 29.3 L (31.0-37.0) g/dL RDW 15.9 H (11.5-15.5) % Plt Count 279 (150-450) k/uL Neutrophils % 84 % Lymphocytes % 7 % Monocytes % 7 % Eosinophils % 1 % Basophils % 1 % Neutrophils # 9.8 H (1.3-7.7) k/uL Lymphocytes # 0.8 L (1.0-4.8) k/uL Monocytes # 0.8 (0-1.0) k/uL Eosinophils # 0.1 (0-0.7) k/uL Basophils # 0.1 (0-0.2) k/uL Hypochromasia Marked Microcytosis Moderate D-Dimer (<0.60) mg/L FEU Sodium 139 (137-145) mmol/L Potassium 3.7 (3.5-5.1) mmol/L Chloride 102 (98-107) mmol/L Carbon Dioxide 29 (22-30) mmol/L Anion Gap 8 mmol/L BUN 9 (7-17) mg/dL Creatinine 0.48 L (0.52-1.04) mg/dL Est GFR (CKD-EPI)AfAm >90 (>60 ml/min/1.73 sqM) Est GFR (CKD-EPI)NonAf >90 (>60 ml/min/1.73 sqM) Glucose 116 H (74-99) mg/dL Calcium 8.8 (8.4-10.2) mg/dL Total Bilirubin 0.7 (0.2-1.3) mg/dL AST 25 (14-36) U/L ALT 14 (4-34) U/L Alkaline Phosphatase 95 (38-126) U/L C-Reactive Protein 68.1 H (<10.0) mg/L Total Protein 6.7 (6.3-8.2) g/dL Albumin 3.7 (3.5-5.0) g/dL Urine Color Yellow Urine Appearance Clear (Clear) Urine pH 6.5 (5.0-8.0) Ur Specific [place] 1.026 (1.001-1.035) Urine Protein Trace H (Negative) Urine Glucose (UA) Negative (Negative) Urine Ketones Trace H (Negative) Urine Blood Negative (Negative) Urine Nitrite Negative (Negative) Urine Bilirubin Negative (Negative) Urine Urobilinogen 4.0 (<2.0) mg/dL Ur Leukocyte Esterase Negative (Negative) 01/10/20 Range/Units 18:12 WBC (3.8-10.6) k/uL RBC (3.80-5.40) m/uL Hgb (11.4-16.0) gm/dL Hct (34.0-46.0) % MCV (80.0-100.0) fL MCH (25.0-35.0) pg MCHC (31.0-37.0) g/dL RDW (11.5-15.5) % Plt Count (150-450) k/uL Neutrophils % % Lymphocytes % % Monocytes % % Eosinophils % % Basophils % % Neutrophils # (1.3-7.7) k/uL Lymphocytes # (1.0-4.8) k/uL Monocytes # (0-1.0) k/uL Eosinophils # (0-0.7) k/uL Basophils # (0-0.2) k/uL Hypochromasia Microcytosis D-Dimer 0.83 H (<0.60) mg/L FEU Sodium (137-145) mmol/L Potassium (3.5-5.1) mmol/L Chloride (98-107) mmol/L Carbon Dioxide (22-30) mmol/L Anion Gap mmol/L BUN (7-17) mg/dL Creatinine (0.52-1.04) mg/dL Est GFR (CKD-EPI)AfAm (>60 ml/min/1.73 sqM) Est GFR (CKD-EPI)NonAf (>60 ml/min/1.73 sqM) Glucose (74-99) mg/dL Calcium (8.4-10.2) mg/dL Total Bilirubin (0.2-1.3) mg/dL AST (14-36) U/L ALT (4-34) U/L Alkaline Phosphatase (38-126) U/L C-Reactive Protein (<10.0) mg/L Total Protein (6.3-8.2) g/dL Albumin (3.5-5.0) g/dL Urine Color Urine Appearance (Clear) Urine pH (5.0-8.0) Ur Specific [place] (1.001-1.035) Urine Protein (Negative) Urine Glucose (UA) (Negative) Urine Ketones (Negative) Urine Blood (Negative) Urine Nitrite (Negative) Urine Bilirubin (Negative) Urine Urobilinogen (<2.0) mg/dL Ur Leukocyte Esterase (Negative) Disposition <Rasheed Maxwell - Last Filed: 01/10/20 14:09> Time of Disposition: 20:57 <Mike Phillip - Last Filed: 01/10/20 20:57> Clinical Impression: COPD exacerbation, Effusion of hip joint, left Disposition: ADMITTED IP TO THIS HOSP Referrals: Jeramie Watts DO [Primary Care Provider] - 1-2 days
[2020-01-10 14:47] LABS: Basophils # (A) 0.1 k/uL (0-0.2); Basophils % (A) 1 %; Eosinophils # (A) 0.1 k/uL (0-0.7); Eosinophils % (A) 1 %; HCT 35.2 % (34.0-46.0); HGB 10.3 gm/dL (11.4-16.0); Hypochromasia Marked; Lymphocytes # (A) 0.8 k/uL (1.0-4.8); Lymphocytes % (A) 7 %; MCH 21.1 pg (25.0-35.0); MCHC 29.3 g/dL (31.0-37.0); MCV 71.9 fL (80.0-100.0); Mean Platelet Volume 7.7; Microcytosis Moderate; Monocytes # (A) 0.8 k/uL (0-1.0); Monocytes % (A) 7 %; Neutrophils # (A) 9.8 k/uL (1.3-7.7); Neutrophils % (A) 84 %; Platelet Count 279 k/uL (150-450); RBC 4.89 m/uL (3.80-5.40); RDW 15.9 % (11.5-15.5); WBC 11.6 k/uL (3.8-10.6)
[2020-01-10 15:02] LABS: ALT 14 U/L (4-34); AST 25 U/L (14-36); African American GFR (CKD) >90 (>60 ml/min/1.73 sqM); Albumin 3.7 g/dL (3.5-5.0); Alkaline Phosphatase 95 U/L (38-126); Anion Gap 8 mmol/L; Blood Urea Nitrogen 9 mg/dL (7-17); C Reactive Protein 68.1 mg/L (<10.0); Calcium 8.8 mg/dL (8.4-10.2); Carbon Dioxide 29 mmol/L (22-30); Chloride 102 mmol/L (98-107); Glucose 116 mg/dL (74-99); Non-African American GFR(CKD) >90 (>60 ml/min/1.73 sqM); Potassium 3.7 mmol/L (3.5-5.1); Sodium 139 mmol/L (137-145); Total Bilirubin 0.7 mg/dL (0.2-1.3); Total Protein 6.7 g/dL (6.3-8.2)
--- NOTE | 2020-01-10 15:02 | XR ---
EXAMINATION TYPE: XR Hip LT and AP Pelvis DATE OF EXAM: 01/10/2020 COMPARISON: NONE HISTORY: Left hip pain TECHNIQUE: A single AP view of the pelvis is obtained. Two views of the left hip are obtained. FINDINGS: Exam may be limited by patient body habitus. There is no acute fracture/dislocation eviden t in the pelvis. Sclerotic focus within the lateral femoral head may represent bone island. Hypertr ophic change at the lateral aspect of the acetabulum could be indicative of femoral acetabular imping ement. Overlying soft tissue appears unremarkable. Two views of left hip show no acute fracture or dislocation. No focal lytic or sclerotic lesion seen in the proximal left femur. The overlying soft tissue is unremarkable. Marginal spurring and joint space loss is present in the right hip consistent with osteoarthritis. Suspect some degenerative dis c changes at the lower lumbar spine. IMPRESSION: There is no acute fracture or dislocation in the pelvis or left hip. Additional findings above.
--- NOTE | 2020-01-10 16:31 | CT ---
EXAMINATION TYPE: CT hip LT wo con DATE OF EXAM: 01/10/2020 COMPARISON: Plain film same date HISTORY: Left hip pain CT DLP: 1053.6 mGycm Automated exposure control for dose reduction was used. Helical imaging through the left hip. FINDINGS: There is no fracture or dislocation. Sclerotic focus within the femoral head both medially and latera lly show a nonaggressive appearance. There is a left hip joint effusion present. Facet arthropathy ch ricky present at the lumbosacral junction. Left sacroiliac joint is intact. Bone mineralization is caren ntained. Joint space is within normal limits. Diverticular change noted in the sigmoid colon. As described vascular calcifications present along th e distribution of the common femoral and common iliac artery. IMPRESSION: NO FRACTURE OR DISLOCATION. THERE IS A LEFT HIP JOINT EFFUSION. HIP MRI MAY BE OF BENEFIT. ADDITIONAL FINDINGS ABOVE.
[2020-01-10] MEDS ORDERED: methylPREDNISolone SOD SUCCI 125 MG/2 ML VIAL IV STA ×2 (17:24→19:19)
[2020-01-10] MEDS ORDERED: IPRATROPIUM-ALBUTEROL 3 ML NEB INHALATION STA (17:24)
[2020-01-10 17:59] LABS: Appearance,Urine Clear (Clear); Bilirubin,Urine Negative (Negative); Blood,Urine Negative (Negative); Color,Urine Yellow; Glucose,Urine (UA) Negative (Negative); Ketones,Urine Trace (Negative); Leukocyte Esterase,Urine Negative (Negative); Nitrite,Urine Negative (Negative); PH, Urine 6.5 (5.0-8.0); Protein,Urine Trace (Negative); Specific Gravity,Urine 1.026 (1.001-1.035)
--- NOTE | 2020-01-10 18:28 | XR ---
EXAMINATION TYPE: XR chest 2V DATE OF EXAM: 01/10/2020 COMPARISON: 10/07/2019 HISTORY: Chest pain TECHNIQUE: FINDINGS: There is slight increased interstitial markings. Heart size is normal. There are no hilar m asses. There is no pulmonary consolidation. There is no pleural effusion. The bony thorax is intact. IMPRESSION: Slight increased lung markings but no pulmonary consolidation or heart failure. Normal he art. No significant change.
[2020-01-10] MEDS ORDERED: FAMOTIDINE 20 MG/2 ML VIAL IV STA (19:19)
[2020-01-10] MEDS ORDERED: diphenhydrAMINE 50 MG/ML 1 ML VIAL IVP STA (19:19)
--- NOTE | 2020-01-10 20:29 | CT ---
EXAMINATION TYPE: CT chest angio for PE DATE OF EXAM: 01/10/2020 COMPARISON: 01/10/2019 HISTORY: Chest pain CT DLP: 398.1 mGycm Automated exposure control for dose reduction was used. CONTRAST: Performed with IV Contrast, patient injected with 100 mL of Isovue 370. There are 3-D post processed images. There is some patchy atelectasis at the lung bases. There is no pleural effusion. There is no pericardial effusion. Heart is top normal in size. There are no hilar masses. There is no mediastinal adenopathy. Thoracic aorta is intact. There is no aneurysm or dissection. The ascending aorta measures 3.1 cm. There is normal contrast opacification o f the pulmonary arteries. There are no filling defects. Thoracic spine is intact. The ribs appear int act. IMPRESSION: No evidence of pulmonary embolism. Patchy atelectasis at both lung bases.
[2020-01-10] MEDS: MORPHINE SULFATE 2 MG/ML SYRINGE IVP STA (22:25)
[2020-01-10] MEDS ORDERED: NITROGLYCERIN SL TABS 0.4 MG TAB SUBLINGUAL PRN (23:51)
[2020-01-10] MEDS ORDERED: HYDROcodone/APAP 5-325MG 1 EACH TAB PO PRN (23:56)
--- NOTE | 2020-01-11 00:08 | P.HPIM ---
History of Present Illness H&P Date: 01/10/20 Chief Complaint: Dyspnea and shortness of breath, COPD exacerbation and possible avascular n 69-year-old female one of Dr. Watts patient with past medical history of CAD post PCI and stent placement, history of mild COPD, history of rheumatoid arthritis, history of hypertension and hyperlipidemia who presented to the emergency department today with significant pain and discomfort in the left hip area started over the last 12 hours become much worse with no sign of injury or trauma to the hip area no deformity and patient ability to bear weight on the hip become extremely hard. Workup demurs department with x-ray of the hip no major finding CAT scan of the hip showed slight swelling and inflammatory fluid around the hip joint not able to exclude possibility of avascular necrosis of fracture at this point they're asking for an MRI of the hip and orthopedic consultation. As patient and the mid left the workup in the emergency department developed to have significant dyspnea and shortness of breath d-dimer was mildly elevated CT of the lung shows no PE but slight infiltrate in the bases both side with mild COPD exacerbation. Patient was started on updraft DuoNeb and Pulmicort no steroid IV will be use at this point. Also for the severity of the hip pain not been able to use any steroid patient will be on baclofen and hydrocodone for pain Will hospitalize patient continue treatment of COPD exacerbation and bibasilar pneumonia watch his seen orthopedic for further workup on the left hip and possible avascular necrosis an MRI of the hip was order. Review of Systems CONSTITUTIONAL: Well-developed no acute respiratory distress. EYES: No icterus sclerae, no conjunctivitis. EARS, NOSE, MOUTH, THROAT, and FACE: No sore throat, lymphadenopathy, carotid bruits or deformity. RESPIRATORY: Positive shortness of breath cough wheezes. CARDIOVASCULAR: Positive chest pain and palpitation with PND, Orthopnea, no angina. GASTROINTESTINAL: No Abd pain, Nausea or vomiting, no Diarrhea or constipation, No GI Bleed, no distention or masses. GENITOURINARY: Negative for Hematuria or UTI, no kidney stones. INTEGUMENT/BREAST: Significant pain and discomfort and not able to bear any weight on the left hip area. HEMATOLOGIC/LYMPHATIC: Negative for bleed or purpura. MUSCULOSKELTAL: Negative for Myalgia or arthralgia. NEURLOGICAL: No LOC, Sz or syncope, blurred vision dizziness or abnormality.. BEHAVIORAL/PSYCH: Negative. ENDOCRINE: Negative. Past Medical History Past Medical History: Coronary Artery Disease (CAD), COPD, Hyperlipidemia, Hypertension, Rheumatoid Arthritis (RA), Supraventricular Tachycardia (SVT), Thyroid Disorder Additional Past Medical History / Comment(s): salivary gland stone-resolved, IBS, CAD post NSTEMI with PCI of the RCA. , History of Any Multi-Drug Resistant Organisms: MRSA, Other MDRO Date of last positivie culture/infection: 2006 MDRO Source:: abscess top of rt leg Past Surgical History: Appendectomy, Section, Cholecystectomy, Heart Catheterization With Stent, Hysterectomy Past Anesthesia/Blood Transfusion Reactions: No Reported Reaction Date of Last Stent Placement:: 12/01 Past Psychological History: No Psychological Hx Reported Smoking Status: Current every day smoker Past Alcohol Use History: None Reported Past Drug Use History: None Reported - Past Family History Father Family Medical History: Cancer Additional Family Medical History / Comment(s): Father at age 51 from lung cancer with metastatic disease. Mother Family Medical History: Rheumatoid Arthritis (RA) Additional Family Medical History / Comment(s): Mother at age 77 from old age but had history of rheumatoid arthritis. Brother(s) Additional Family Medical History / Comment(s): Patient had 1 brother that from complications of agent orange. Daughter(s) Additional Family Medical History / Comment(s): Patient is 3 children with no major medical problems. Sister(s) Family Medical History: Renal Disease, Vascular Disorder Medications and Allergies Home Medications Medication Instructions Recorded Confirmed Type Levothyroxine Sodium [Synthroid] 75 mcg PO DAILY 04/13/17 10/07/19 History Atorvastatin [Lipitor] 80 mg PO HS #30 tab 12/09/18 10/07/19 Rx Clopidogrel [Plavix] 75 mg PO DAILY #30 tab 12/09/18 10/07/19 Rx Nitroglycerin Sl Tabs [Nitrostat] 0.4 mg SUBLINGUAL Q5M PRN #25 tab 12/09/18 10/07/19 Rx Aspirin 81 mg PO DAILY chew 06/27/19 10/07/19 Rx Metoprolol Succinate [Toprol XL] 25 mg PO HS 10/07/19 10/07/19 History amLODIPine [Norvasc] 5 mg PO DAILY 10/07/19 10/07/19 History Isosorbide Mononitrate ER [Imdur] 15 mg PO DAILY #30 dose 10/08/19 Rx Pantoprazole Sodium 40 mg PO DAILY #30 tablet. 10/08/19 Rx Allergies Allergy/AdvReac Type Severity Reaction Status Date / Time adhesive tape Allergy Rash/Hives Verified 01/10/20 13:44 iodine Allergy Anaphylaxis Verified 01/10/20 13:44 latex Allergy Rash/Hives Verified 01/10/20 13:44 sulfamethoxazole Allergy Unknown Verified 01/10/20 13:44 [From Bactrim] trimethoprim [From Bactrim] Allergy Unknown Verified 01/10/20 13:44 STEROIDS AdvReac Confusion Uncoded 01/10/20 13:44 Physical Exam Vitals: Vital Signs Temp Pulse Resp BP Pulse Ox 01/10/20 22:10 98.9 F 80 20 124/74 95 01/10/20 20:12 98.6 F 86 18 150/71 98 01/10/20 18:30 86 01/10/20 18:22 78 01/10/20 17:59 73 20 139/69 92 L 01/10/20 16:52 18 134/83 92 L 01/10/20 13:37 98.6 F 82 16 118/93 92 L Intake and Output 01/10/20 01/10/20 01/11/20 14:59 22:59 06:59 Other: Weight 84.822 kg General Appearance: Alert, cooperative, no distress, appears stated age. Neck HEENT: Supple, no lymphadenopathy, no thyroid enlargement, no carotid brui ts. Lungs: Decreased breath some bilaterally with fine rhonchi positive mild expiratory wheezes with crackles in the bases specially the right compared to the left side. Chest Wall: Decrease expansion with deep inspiration no tenderness and no deformity was found on exam, no costochondral pain or discomfort. Heart: Regular rate and rhythm, S1, S2 positive S3 positive systolic murmur. Back: Symmetric, no curvature, ROM normal, no CVA tenderness. Abdomen: Soft, non-tender, bowel sounds active all four quadrants, no masses, no organomegaly. Extremities: Trace edema decreased pulse in the right side, the left hip had significant pain and discomfort and hypersensitivity 20 exam not able to put any weight still able to rotate slightly but significant discomfort in the left groin area. Pulses: 2+ and symmetric. Skin: Skin color, texture, tugor normal, no rashes or lesions. Neurologic: Alert oriented x3 cranial nerves II through XII intact, no motor deficit, no abnormal balance or gait. Results CBC & Chem 7: 01/10/20 14:22 01/10/20 14:22 Labs: Abnormal Lab Results - Last 24 Hours (Table) 01/10/20 01/10/20 01/10/20 Range/Units 14:22 14:22 16:55 WBC 11.6 H (3.8-10.6) k/uL Hgb 10.3 L (11.4-16.0) gm/dL MCV 71.9 L (80.0-100.0) fL MCH 21.1 L (25.0-35.0) pg MCHC 29.3 L (31.0-37.0) g/dL RDW 15.9 H (11.5-15.5) % Neutrophils # 9.8 H (1.3-7.7) k/uL Lymphocytes # 0.8 L (1.0-4.8) k/uL D-Dimer (<0.60) mg/L FEU Creatinine 0.48 L (0.52-1.04) mg/dL Glucose 116 H (74-99) mg/dL C-Reactive Protein 68.1 H (<10.0) mg/L Urine Protein Trace H (Negative) Urine Ketones Trace H (Negative) 01/10/20 Range/Units 18:12 WBC (3.8-10.6) k/uL Hgb (11.4-16.0) gm/dL MCV (80.0-100.0) fL MCH (25.0-35.0) pg MCHC (31.0-37.0) g/dL RDW (11.5-15.5) % Neutrophils # (1.3-7.7) k/uL Lymphocytes # (1.0-4.8) k/uL D-Dimer 0.83 H (<0.60) mg/L FEU Creatinine (0.52-1.04) mg/dL Glucose (74-99) mg/dL C-Reactive Protein (<10.0) mg/L Urine Protein (Negative) Urine Ketones (Negative) Thrombosis Risk Factor Assmnt - DVT/VTE Prophylaxis DVT/VTE Prophylaxis: Pharmacologic Prophylaxis ordered, Mechanical Prophylaxis ordered Assessment and Plan Assessment: 1 severe dyspnea and shortness of breath: Combination of COPD exacerbation along with bibasilar pneumonia with treat underlying disease no steroid can be use at this point continue O2 and updraft treatment. 2 COPD excessive patient: Patient will be on DuoNeb and Pulmicort with no systemic steroid. 3 by basilar pneumonia: Rocephin and azithromycin were started will recheck clinically and chest x-ray in 2 days. 4 intractable left hip pain not a clear etiology most likely avascular necrosis or occult fracture, MRI of the hip was ordered this time awaiting for the final result and will see orthopedic. 5 history of CAD post PCI and stent placement few month ago patient remain on secondary prevention with beta jp, aspirin, Plavix and statin. 6 hyperlipidemia: Remain on atorvastatin 80 mg daily. 7 recurrent GERD: Patient is on pantoprazole 40 mg a day. 8 hypothyroidism: Continue levothyroxine 75 g daily. 9 hypertension: Remain on amlodipine 5 mg a day and metoprolol XL 25 mg daily. 10 severe rheumatoid arthritis: Patient is not in any medication currently can benefit if able to tolerate methotrexate steroid can be a good choice if patient is not having any sign of avascular necrosis which can be blamed on steroid use in the past. 11 GI prophylaxis: Patient is on pantoprazole. 12 DVT prophylaxis: Patient will be on heparin subcutaneous. CODE STATUS: Full code. Admit patient to the hospital for inpatient for more than 2 night stay.
[2020-01-11] MEDS: IPRATROPIUM-ALBUTEROL 3 ML NEB INHALATION PRN ×4 (00:18→18:47)
[2020-01-11] MEDS: LEVOTHYROXINE 75 MCG TAB PO SCH ×2 (00:59→05:58)
[2020-01-11] MEDS: MORPHINE SULFATE 2 MG/ML SYRINGE IVP STA (01:08)
[2020-01-11] MEDS: methylPREDNISolone SOD SUCCI 125 MG/2 ML VIAL IV SCH ×5 (01:08→23:20)
[2020-01-11] MEDS: AZITHROMYCIN 500 MG in SODIUM CHLORIDE 0.9% 250 ML IVPB SCH (01:37)
[2020-01-11] MEDS: BUDESONIDE 0.25 MG/2 ML NEBU INHALATION SCH ×2 (08:06→18:47)
[2020-01-11] MEDS: PANTOPRAZOLE 40 MG TABLET PO SCH (08:28)
[2020-01-11] MEDS: CLOPIDOGREL 75 MG TAB PO SCH (08:28)
[2020-01-11] MEDS: amLODIPine 5 MG TAB PO SCH (08:31)
[2020-01-11] MEDS: ISOSORBIDE MONONITRATE ER 15 MG TAB PO SCH (08:31)
[2020-01-11] MEDS: ASPIRIN 81 MG PO SCH (08:31)
[2020-01-11] MEDS ORDERED: BACLOFEN 10 MG TAB PO PRN (09:00)
--- NOTE | 2020-01-11 12:10 | P.CNOR ---
<Vasiliy Childers - Last Filed: 01/11/20 12:10> History of Present Illness - [facility] Consult date: 01/11/20 History of present illness: This patient is a 69- year old female with a past medical history of CAD post stent placement, current cigarette smoker, COPD, rheumatoid arthritis, hypertension and hyperlipidemia that presented to [facility] ER yesterday via EMS with complaints of severe left hip pain. The patient states there was no trauma to the hip. She has not fallen and injured the hip recently. Patient states the pain began about 2 days ago randomly. She states the pain was constant and increasing over the past 2 days, it became so severe she was unable to ambulate. The patient states at the time when her hip began to hurt, her bilateral hands also were sore. She states she does have rheumatoid arthritis, although she does not take any long-term medications for this. CT scan of the left hip in the emergency department showed effusion, no fracture. MRI of the left hip was ordered by Dr. Emery, and is currently still pending. Patient also began to experience shortness of breath in the emergency department. She is admitted to the care of Dr. Emery for COPD exacerbation, pneumonia, and left hip pain. At the time of exam, the patient states her left hip pain has almost resolved completely. The patient has received IV Solu-Medrol, 1 dose of [place], and 1 dose of Toradol since arrival to emergency department. She states she recently walked to the bathroom with minimal pain in the hip. She is experiencing very mild pain currently, and it is located to the anterior hip and groin. She denies posterior or lateral hip pain. She has back pain. She denies numbness, tingling, or pain radiating down the left lower extremity. She denies bowel or bladder incontinence. She denies fevers, chills, nausea, vomiting. She states besides her mild shortness of breath, and hip pain she has no other complaints and she feels well. Vital signs stable. Past Medical History Past Medical History: Coronary Artery Disease (CAD), COPD, Hyperlipidemia, Hypertension, Rheumatoid Arthritis (RA), Supraventricular Tachycardia (SVT), Thyroid Disorder Additional Past Medical History / Comment(s): salivary gland stone-resolved, IBS, CAD post NSTEMI with PCI of the RCA. , History of Any Multi-Drug Resistant Organisms: MRSA, Other MDRO Year Discovered:: 2006 MDRO Source:: abscess top of rt leg Past Surgical History: Appendectomy, Section, Cholecystectomy, Heart Catheterization With Stent, Hysterectomy Past Anesthesia/Blood Transfusion Reactions: No Reported Reaction Date of Last Stent Placement:: 12/01 Past Psychological History: No Psychological Hx Reported Smoking Status: Current every day smoker Past Alcohol Use History: None Reported Past Drug Use History: None Reported - Past Family History Father Family Medical History: Cancer Additional Family Medical History / Comment(s): Father at age 51 from lung cancer with metastatic disease. Mother Family Medical History: Rheumatoid Arthritis (RA) Additional Family Medical History / Comment(s): Mother at age 77 from old age but had history of rheumatoid arthritis. Brother(s) Additional Family Medical History / Comment(s): Patient had 1 brother that from complications of agent orange. Daughter(s) Additional Family Medical History / Comment(s): Patient is 3 children with no major medical problems. Sister(s) Family Medical History: Renal Disease, Vascular Disorder Medications and Allergies Home Medications Medication Instructions Recorded Confirmed Type Levothyroxine Sodium [Synthroid] 75 mcg PO DAILY 04/13/17 10/07/19 History Atorvastatin [Lipitor] 80 mg PO HS #30 tab 12/09/18 10/07/19 Rx Clopidogrel [Plavix] 75 mg PO DAILY #30 tab 12/09/18 10/07/19 Rx Nitroglycerin Sl Tabs [Nitrostat] 0.4 mg SUBLINGUAL Q5M PRN #25 tab 12/09/18 10/07/19 Rx Aspirin 81 mg PO DAILY chew 06/27/19 10/07/19 Rx Metoprolol Succinate [Toprol XL] 25 mg PO HS 10/07/19 10/07/19 History amLODIPine [Norvasc] 5 mg PO DAILY 10/07/19 10/07/19 History Isosorbide Mononitrate ER [Imdur] 15 mg PO DAILY #30 dose 10/08/19 Rx Pantoprazole Sodium 40 mg PO DAILY #30 tablet. 10/08/19 Rx Allergies Allergy/AdvReac Type Severity Reaction Status Date / Time adhesive tape Allergy Rash/Hives Verified 01/10/20 13:44 iodine Allergy Anaphylaxis Verified 01/10/20 13:44 latex Allergy Rash/Hives Verified 01/10/20 13:44 sulfamethoxazole Allergy Unknown Verified 01/10/20 13:44 [From Bactrim] trimethoprim [From Bactrim] Allergy Unknown Verified 01/10/20 13:44 STEROIDS AdvReac Confusion Uncoded 01/10/20 13:44 Physical Examination On examination, the patient is lying in bed in no apparent distress. She is alert and oriented 3. Her head appears normocephalic and traumatic. Her breathing appears unlabored. Nasal cannula in place. On inspection of her bilateral upper extremities, there are no obvious deformities or signs of trauma. On inspection of her right lower extremity there are no obvious deformities or signs of trauma. A focused exam of the left hip and left lower extremity is conducted. On inspection of the left hip, there are is no erythema, warmth, ecchymosis, or ski n discoloration. The skin is intact with no lacerations or abrasions. There is mild pain on palpation of the anterior hip and groin. There is no pain on palpation of the lateral hip, posterior hip, thigh, knee, lower leg, ankle, foot. There is very mild discomfort with passive range of motion of the hip. No pain with logrolling. Patient is able to perform a straight leg raise without issue or pain. Motor and sensory function appear to be intact in the left lower extremity. Dorsalis pulse palpable, left lower extremities were well perfused with brisk capillary refill distally. Calf is soft and nontender to palpation. Results CT scan left hip 01/10/20: No acute fractures, joint effusion. - Labs Labs: Abnormal Lab Results - Last 24 Hours (Table) 01/10/20 01/10/20 01/10/20 Range/Units 14:22 14:22 16:55 WBC 11.6 H (3.8-10.6) k/uL Hgb 10.3 L (11.4-16.0) gm/dL MCV 71.9 L (80.0-100.0) fL MCH 21.1 L (25.0-35.0) pg MCHC 29.3 L (31.0-37.0) g/dL RDW 15.9 H (11.5-15.5) % Neutrophils # 9.8 H (1.3-7.7) k/uL Lymphocytes # 0.8 L (1.0-4.8) k/uL ESR (0-20) mm/hr D-Dimer (<0.60) mg/L FEU Creatinine 0.48 L (0.52-1.04) mg/dL Glucose 116 H (74-99) mg/dL C-Reactive Protein 68.1 H (<10.0) mg/L Urine Protein Trace H (Negative) Urine Ketones Trace H (Negative) 01/10/20 01/11/20 Range/Units 18:12 09:48 WBC (3.8-10.6) k/uL Hgb (11.4-16.0) gm/dL MCV (80.0-100.0) fL MCH (25.0-35.0) pg MCHC (31.0-37.0) g/dL RDW (11.5-15.5) % Neutrophils # (1.3-7.7) k/uL Lymphocytes # (1.0-4.8) k/uL ESR 41 H (0-20) mm/hr D-Dimer 0.83 H (<0.60) mg/L FEU Creatinine (0.52-1.04) mg/dL Glucose (74-99) mg/dL C-Reactive Protein (<10.0) mg/L Urine Protein (Negative) Urine Ketones (Negative) H & H 01/10/20 Range/Units 14:22 Hgb 10.3 L (11.4-16.0) gm/dL Hct 35.2 (34.0-46.0) % Result Diagrams: 01/10/20 14:22 01/10/20 14:22 Assessment and Plan Assessment: Left hip pain History of rheumatoid arthritis Plan: - The clinical and imaging findings were discussed with the patient. The patient was discussed with Dr. Enriuqez. There is low concern for septic arthritis of the left hip as this point. We will attempt to increase the patient's mobilization with physical therapy. - Patient's pain has improved drastically, therefore she may weight bear as tolerated on the left lower extremity. - MRI of the left hip has been ordered per Dr. Emery, and we will await these results for further recommendations. - Pain management per admitting team. - We will continue to follow patient closely. Patient discussed with Dr. Enriquez. <Darren Enriquez - Last Filed: 01/11/20 19:19> Results - Labs Labs: Abnormal Lab Results - Last 24 Hours (Table) 01/11/20 Range/Units 09:48 ESR 41 H (0-20) mm/hr H & H 01/10/20 Range/Units 14:22 Hgb 10.3 L (11.4-16.0) gm/dL Hct 35.2 (34.0-46.0) % Result Diagrams: 01/10/20 14:22 01/10/20 14:22 Assessment and Plan Plan: Case was reviewed and discussed; agree with above (amendments/additions/corrections noted below). I subsequently saw and examined the patient as well. S: The patient states that the symptoms came on fairly suddenly (about a day before admission) and she does not recall any specific injury or inciting event. The pain became so intense that she could not even rise from a chair or put weight on the left leg. She does not use any assist devices for ambulation but she admits that that leg is always been a little bit weaker (e.g., she helps it up manually when getting into bed or a car). She admits to recently feeling a cold in her head and chest. She has had similar symptoms several times in the past which have always responded to a Z-Harman. She got one from her family doctor and the symptoms resolved. She has a history of rheumatoid arthritis but does not take any thing regularly for it. She tried methotrexate but did not like the side effects. She states that she has not had very many flareups. Since arrival, the symptoms have essentially resolved. She can stand unassisted and has been able to ambulate without pain. Past medical history is significant for COPD. She currently smokes about a pack a week (but smoked more heavily when she was younger). She says she feels great and is eager to go home. Of note, her in this hospital last month due to a COVID-19 infection. O: She is able to actively straight leg raise. Negative Stinchfield. No crepitus or pain with passive internal rotation, external rotation or circumduction. No pain with resisted abduction or adduction. Excellent strength. Imaging: MRI of the left hip demonstrates a small to medium-sized effusion in the left hip; uniform signal intensity, consistent with synovitis. Mild focal edema in the origin of the rectus anteriorly may represent a strain vs reactive in flammation. No discrete abscess. Mild to moderate degenerative changes in the femoroacetabular joint. A: Acute onset left hip pain with effusion - likely rheumatoid flare versus transient synovitis Rheumatoid arthritis COPD Nicotine addiction P: I discussed the clinical findings in detail with the patient. We discussed the pathophysiology of palindromic rheumatoid flares. With her history, lab values and quick resolution of symptoms, I feel that septic arthritis is extremely unlikely. She needs no further intervention for the hip and may be discharged home as soon as possible (when ok with primary team). I discussed the potential for recurrent symptoms. If the pain returns but is mild, she may manage this with activity modification and [id number] NSAIDs. If it worsens, I instructed her to contact our office or return to the emergency department. If she continues to have similar flareups (in the hip or other joints), I encouraged her to reestablish care with a electric gas appliances demonstrator and discuss further treatment options (e.g. DMARDs). Questions were invited and answered; the patient expressed understanding and agreement with this plan. She may follow up on an as-needed basis. Thank you for allowing me to participate in the care of this patient. Darren Enriquez D.O. [facility]
--- NOTE | 2020-01-11 15:42 | P.PN ---
Subjective Progress Note Date: 01/11/20 69-year-old female one of Dr. Watts patient with past medical history of CAD post PCI and stent placement, history of mild COPD, history of rheumatoid arthritis, history of hypertension and hyperlipidemia who presented to the emergency department today with significant pain and discomfort in the left hip area started over the last 12 hours become much worse with no sign of injury or trauma to the hip area no deformity and patient ability to bear weight on the hip become extremely hard. Workup demurs department with x-ray of the hip no major finding CAT scan of the hip showed slight swelling and inflammatory fluid around the hip joint not able to exclude possibility of avascular necrosis of fracture at this point they're asking for an MRI of the hip and orthopedic consultation. As patient and the mid left the workup in the emergency department developed to have significant dyspnea and shortness of breath d-dimer was mildly elevated CT of the lung shows no PE but slight infiltrate in the bases both side with mild COPD exacerbation. Patient was started on updraft DuoNeb and Pulmicort no steroid IV will be use at this point. Also for the severity of the hip pain not been able to use any steroid patient will be on baclofen and hydrocodone for pain Will hospitalize patient continue treatment of COPD exacerbation and bibasilar pneumonia watch his seen orthopedic for further workup on the left hip and possible avascular necrosis an MRI of the hip was order. 01/10: Patient is seen today in follow-up. Patient remains in the emergency center wave for a bed on the MedSur floor. Patient is waiting for MRI. Patient has been seen by orthopedics with plan to evaluate the MRI results with low concern for septic arthritis. PT evaluation in place. Patient states the left hip is less painful and tender and less firmness to the area. There is concern for avascular necrosis. Coronavirus PCR pending. Patient states that her plan is to return home and would like to go home later today but agreed to stay until tomorrow once all testing and evaluations are completed. Patient has been afebrile, heart rate 76, blood pressure 121/66, pulse ox 95% on 4 L nasal cannula. Objective - Vital Signs Vital signs: Vital Signs Temp 97.1 F L 01/11/20 06:05 Pulse 88 01/11/20 08:16 Resp 18 01/11/20 06:05 BP 121/66 01/11/20 06:05 Pulse Ox 95 01/11/20 06:05 Intake & Output 01/10/20 01/11/20 01/11/20 18:59 06:59 18:59 Weight 84.822 kg - Exam Review of Systems CONSTITUTIONAL: Well-developed no acute respiratory distress. Denies fever, denies chills EYES: No icterus sclerae, no conjunctivitis. EARS, NOSE, MOUTH, THROAT, and FACE: No sore throat, lymphadenopathy, carotid bruits or deformity. RESPIRATORY: Positive shortness of breath cough wheezes. CARDIOVASCULAR: Positive chest pain and palpitation with PND, Orthopnea, no angina. GASTROINTESTINAL: No Abd pain, Nausea or vomiting, no Diarrhea or constipation, No GI Bleed, no distention or masses. GENITOURINARY: Negative for Hematuria or UTI, no kidney stones. INTEGUMENT/BREAST: Significant pain and discomfort and not able to bear any weight on the left hip area. HEMATOLOGIC/LYMPHATIC: Negative for bleed or purpura. MUSCULOSKELTAL: Negative for Myalgia or arthralgia. NEURLOGICAL: No LOC, Sz or syncope, blurred vision dizziness or abnormality.. BEHAVIORAL/PSYCH: Negative. ENDOCRINE: Negative. Physical Examination General Appearance: Alert, cooperative, no distress, appears stated age. Neck HEENT: Supple, no lymphadenopathy, no thyroid enlargement, no carotid bruits. Lungs: Decreased breath some bilaterally with fine rhonchi positive mild expiratory wheezes with crackles in the bases specially the right compared to the left side. Chest Wall: Decrease expansion with deep inspiration no tenderness and no deformity was found on exam, no costochondral pain or discomfort. Heart: Regular rate and rhythm, S1, S2 positive S3 positive systolic murmur. Back: Symmetric, no curvature, ROM normal, no CVA tenderness. Abdomen: Soft, non-tender, bowel sounds active all four quadrants, no masses, no organomegaly. Extremities: Trace edema decreased pulse in the right side, the left hip pain and discomfort with tenderness that is improved from yesterday. Pulses: 2+ and symmetric. Skin: Skin color, texture, tugor normal, no rashes or lesions. Neurologic: Alert oriented x3 cranial nerves II through XII intact, no motor deficit, no abnormal balance or gait. - Labs CBC & Chem 7: 01/10/20 14:22 01/10/20 14:22 Labs: Abnormal Lab Results - Last 24 Hours (Table) 01/10/20 01/10/20 01/10/20 Range/Units 14:22 14:22 16:55 WBC 11.6 H (3.8-10.6) k/uL Hgb 10.3 L (11.4-16.0) gm/dL MCV 71.9 L (80.0-100.0) fL MCH 21.1 L (25.0-35.0) pg MCHC 29.3 L (31.0-37.0) g/dL RDW 15.9 H (11.5-15.5) % Neutrophils # 9.8 H (1.3-7.7) k/uL Lymphocytes # 0.8 L (1.0-4.8) k/uL D-Dimer (<0.60) mg/L FEU Creatinine 0.48 L (0.52-1.04) mg/dL Glucose 116 H (74-99) mg/dL C-Reactive Protein 68.1 H (<10.0) mg/L Urine Protein Trace H (Negative) Urine Ketones Trace H (Negative) 01/10/20 Range/Units 18:12 WBC (3.8-10.6) k/uL Hgb (11.4-16.0) gm/dL MCV (80.0-100.0) fL MCH (25.0-35.0) pg MCHC (31.0-37.0) g/dL RDW (11.5-15.5) % Neutrophils # (1.3-7.7) k/uL Lymphocytes # (1.0-4.8) k/uL D-Dimer 0.83 H (<0.60) mg/L FEU Creatinine (0.52-1.04) mg/dL Glucose (74-99) mg/dL C-Reactive Protein (<10.0) mg/L Urine Protein (Negative) Urine Ketones (Negative) Assessment and Plan Plan: 1 severe dyspnea and shortness of breath: Combination of COPD exacerbation along with bibasilar pneumonia with treat underlying disease no steroid can be use at this point continue O2 and updraft treatment. 2 COPD exacerbation: Patient will be on DuoNeb and Pulmicort with no systemic steroid. 3 bibasilar pneumonia: Rocephin and azithromycin were started will recheck clinically and chest x-ray in 2 days. 4 intractable left hip pain not a clear etiology most likely avascular necrosis or occult fracture, MRI of the hip was ordered this time awaiting for the final result and will see orthopedic. 5 history of CAD post PCI and stent placement few month ago patient remain on secondary prevention with beta jp, aspirin, Plavix and statin. 6 hyperlipidemia: Remain on atorvastatin 80 mg daily. 7 recurrent GERD: Patient is on pantoprazole 40 mg a day. 8 hypothyroidism: Continue levothyroxine 75 g daily. 9 hypertension: Remain on amlodipine 5 mg a day and metoprolol XL 25 mg daily. 10 severe rheumatoid arthritis: Patient is not in any medication currently can benefit if able to tolerate methotrexate steroid can be a good choice if patient is not having any sign of avascular necrosis which can be blamed on steroid use in the past. 11 GI prophylaxis: Patient is on pantoprazole. 12 DVT prophylaxis: Patient will be on heparin subcutaneous. CODE STATUS: Full code. Discharge plan: Most likely home tomorrow Impression and plan of care have been directed as dictated by the signing physician. Lore Wiggins nurse practitioner acting as scribe for signing physician.
--- NOTE | 2020-01-11 16:19 | MR ---
EXAMINATION TYPE: MR hip LT wo con DATE OF EXAM: 01/11/2020 COMPARISON: CT and radiographs 01/10/2020 HISTORY: 69-year-old female Hip Pain, Avascular Necrosis, CT showed abnormality TECHNIQUE: Multiplanar, multisequence images of the left hip were obtained without IV contrast. FINDINGS: Degenerative change of the right hip with superolateral loss of cartilage and joint space. There is a superior acetabular labral tear with a 9 mm paralabral cyst. Mild trochanteric bursitis on the right. Small right hip joint effusion. On the left, there is a more small to moderate left hip joint effusion. No periarticular bone marrow edema. Soft tissue edema is noted along the proximal adductor musculature, some of the left gluteal m usculature, and the anterior upper quadriceps musculature. There is a small interstitial tear within the left gluteus minimus. Otherwise, iliopsoas and gluteal insertions are intact. No evidence for hip fracture or AVN. No pelvic fracture. The sacrum and SI joints appear intact. Rectus femoris and hamstrings origins are intact. Sigmoid diverticulosis. No abnormal fluid collection in the pelvis. IMPRESSION: 1. Small to moderate left hip joint effusion. While there is surrounding soft tissue edema, notably w ithin the proximal adductors, some of the gluteal musculature, and the anterior upper quadriceps musc ulature, there is no corresponding periarticular bone marrow edema to support a septic or inflammator y arthropathy. Correlate for muscle strains or myositis. 2. No evidence for hip fracture or femoral head AVN. Small interstitial tear within the left gluteus minimus myotendinous junction. 3. Right hip OA with an associated superior labral tear. Also, mild right-sided trochanteric bursitis . 4. Sigmoid diverticulosis.
[2020-01-11] MEDS ORDERED: METOPROLOL SUCCINATE (ER) 25 MG TAB.ER.24H PO SCH (21:00)
[2020-01-11] MEDS ORDERED: ATORVASTATIN 80 MG TAB PO SCH (21:00)
[2020-01-12] MEDS: AZITHROMYCIN 500 MG in SODIUM CHLORIDE 0.9% 250 ML IVPB SCH (00:11)
[2020-01-12] MEDS: LEVOTHYROXINE 75 MCG TAB PO SCH (05:40)
[2020-01-12] MEDS: methylPREDNISolone SOD SUCCI 125 MG/2 ML VIAL IV SCH ×2 (05:40→12:01)
[2020-01-12 08:01] VITALS: BP 147/75; PULSE 79; RESP 18; TEMP 98.3
[2020-01-12] MEDS: CLOPIDOGREL 75 MG TAB PO SCH (08:12)
[2020-01-12] MEDS: ASPIRIN 81 MG PO SCH (08:13)
[2020-01-12] MEDS: ISOSORBIDE MONONITRATE ER 15 MG TAB PO SCH (08:13)
[2020-01-12] MEDS: amLODIPine 5 MG TAB PO SCH (08:13)
[2020-01-12] MEDS: PANTOPRAZOLE 40 MG TABLET PO SCH (08:14)
[2020-01-12] MEDS: BUDESONIDE 0.25 MG/2 ML NEBU INHALATION SCH (08:58)
--- NOTE | 2020-01-12 11:19 | P.PN ---
Subjective Progress Note Date: 01/12/20 This patient is a 69- year old female with a past medical history of CAD post stent placement, current cigarette smoker, COPD, rheumatoid arthritis, hypertension and hyperlipidemia that presented to [facility] ER yesterday via EMS with complaints of severe left hip pain. The patient states there was no trauma to the hip. She has not fallen and injured the hip recently. Patient states the pain began about 2 days ago randomly. She states the pain was constant and increasing over the past 2 days, it became so severe she was unable to ambulate. The patient states at the time when her hip began to hurt, her bilateral hands also were sore. She states she does have rheumatoid arthritis, although she does not take any long-term medications for this. CT scan of the left hip in the emergency department showed effusion, no fracture. MRI of the left hip was ordered by Dr. Emery, and is currently still pending. Patient also began to experience shortness of breath in the emergency department. She is admitted to the care of Dr. Emery for COPD exacerbation, pneumonia, and left hip pain. At the time of exam, the patient states her left hip pain has almost resolved completely. The patient has received IV Solu-Medrol, 1 dose of [place], and 1 dose of Toradol since arrival to emergency department. She states she recently walked to the bathroom with minimal pain in the hip. She is experiencing very mild pain currently, and it is located to the anterior hip and groin. She denies posterior or lateral hip pain. She has back pain. She denies numbness, tingling, or pain radiating down the left lower extremity. She denies bowel or bladder incontinence. She denies fevers, chills, nausea, vomiting. She states besides her mild shortness of breath, and hip pain she has no other complaints and she feels well. Vital signs stable. 01/12/20: Patient is seen and examined bedside this morning. She states she is experiencing no left hip pain this morning. She overall feels well and has no complaints. She is ambulating without issue. Vital signs stable. Objective - Vital Signs Vital signs: Vital Signs Temp 98.3 F 01/12/20 07:00 Pulse 79 01/12/20 07:00 Resp 18 01/12/20 07:00 BP 147/75 01/12/20 07:00 Pulse Ox 93 L 01/12/20 07:00 Intake & Output 01/11/20 01/12/20 01/12/20 18:59 06:59 18:59 Other: Voiding Method Toilet # Voids 3 1 - Exam On examination, the patient is lying in bed in no apparent distress. She is alert and oriented 3. There is no pain on palpation of the anterior hip and groin. There is no pain with passive range of motion of the hip. No pain with logrolling. Patient is able to perform a straight leg raise without issue or pain. Motor and sensory function appear to be intact in the left lower extremity. Dorsalis pulse palpable, left lower extremities were well perfused with brisk capillary refill distally. Calf is soft and nontender to palpation. - Labs CBC & Chem 7: 01/10/20 14:22 01/10/20 14:22 Assessment and Plan Assessment: Left hip pain, resolved - rheumatoid flare versus transient synovitis History of rheumatoid arthritis Plan: - The patient is cleared for discharge from orthopedic standpoint. She may be discharged home as soon as possible, pending medical clearance. - Recommended activity modification and [id number] NSAIDs if she experiences a recurrence of symptoms. If the pain continues to worsen, she was instructed to contact the office or return to the emergency department. Patient verbalized understanding and agreement with this plan. - Patient may follow-up in the office with Dr. Enriquez on an as-needed basis.
--- NOTE | 2020-01-12 13:53 | P.DS ---
Providers Date of admission: 01/10/20 20:59 Expected date of discharge: 01/12/20 Attending physician: Rudy Emery Consults: 01/10/20 20:59 Consult Physician Routine Consulting Provider: Darren Enriquez Consult Reason/Comments: Left hip effusion Do you want consulting provider notified?: Yes Primary care physician: Jeramie Watts [facility] Course: 69-year-old female one of Dr. Watts patient with past medical history of CAD post PCI and stent placement, history of mild COPD, history of rheumatoid arthritis, history of hypertension and hyperlipidemia who presented to the emergency department today with significant pain and discomfort in the left hip area started over the last 12 hours become much worse with no sign of injury or trauma to the hip area no deformity and patient ability to bear weight on the hip become extremely hard. Workup demurs department with x-ray of the hip no major finding CAT scan of the hip showed slight swelling and inflammatory fluid around the hip joint not able to exclude possibility of avascular necrosis of fracture at this point they're asking for an MRI of the hip and orthopedic consultation. As patient and the mid left the workup in the emergency department developed to have significant dyspnea and shortness of breath d-dimer was mildly elevated CT of the lung shows no PE but slight infiltrate in the bases both side with mild COPD exacerbation. Patient was started on updraft DuoNeb and Pulmicort no steroid IV will be use at this point. Also for the severity of the hip pain not been able to use any steroid patient w ill be on baclofen and hydrocodone for pain Will hospitalize patient continue treatment of COPD exacerbation and bibasilar pneumonia watch his seen orthopedic for further workup on the left hip and possible avascular necrosis an MRI of the hip was order. 01/10: Patient is seen today in follow-up. Patient remains in the emergency center wave for a bed on the MedSur floor. Patient is waiting for MRI. Patient has been seen by orthopedics with plan to evaluate the MRI results with low concern for septic arthritis. PT evaluation in place. Patient states the left hip is less painful and tender and less firmness to the area. There is concern for avascular necrosis. Coronavirus PCR pending. Patient states that her plan is to return home and would like to go home later today but agreed to stay until tomorrow once all testing and evaluations are completed. Patient has been afebrile, heart rate 76, blood pressure 121/66, pulse ox 95% on 4 L nasal cannula. 01/11: Patient is doing well, wanting to be discharged, patient was given a nebulizer last night, has some ALLERGIC reaction, which has resolved spontaneously, she mentions that she has swelling and edema in her face,. Patient was cleared by orthopedic for discharge, she needs to be seen by [facility] machine, she doesn't want our local relay dispatcher Dr. Leal in [facility], hence she needs to be referred to a ironer machine outside of [place], patient does not require any acute pain meds, patient doesn't want to be on NSAIDs secondary to her heart stents, she also does not have any breathing problems, apparently the dyspnea that was noted in the emergency room has resolved spontaneously, negative for PE, patient denies any history of asthma or reactive airway problems, she will be discharged with metoprolol 25 mg daily which she discontinued on her own, discontinue amlodipine and she was not on this prior to admission, blood pressure stable, no oral prednisone on discharge needed, Tylenol for pain, given for discharge. Patient does not have any discomfort she says even when she walks baclofen for discharge when necessary Review of Systems CONSTITUTIONAL: Well-developed no acute respiratory distress. Denies fever, denies chills EYES: No icterus sclerae, no conjunctivitis. EARS, NOSE, MOUTH, THROAT, and FACE: No sore throat, lymphadenopathy, carotid bruits or deformity. RESPIRATORY: Positive shortness of breath cough wheezes. CARDIOVASCULAR: Positive chest pain and palpitation with PND, Orthopnea, no angina. GASTROINTESTINAL: No Abd pain, Nausea or vomiting, no Diarrhea or constipation, No GI Bleed, no distention or masses. GENITOURINARY: Negative for Hematuria or UTI, no kidney stones. INTEGUMENT/BREAST: Significant pain and discomfort and not able to bear any weight on the left hip area. HEMATOLOGIC/LYMPHATIC: Negative for bleed or purpura. MUSCULOSKELTAL: Negative for Myalgia or arthralgia. NEURLOGICAL: No LOC, Sz or syncope, blurred vision dizziness or abnormality.. BEHAVIORAL/PSYCH: Negative. ENDOCRINE: Negative. Physical Examination General Appearance: Alert, cooperative, no distress, appears stated age. Neck HEENT: Supple, no lymphadenopathy, no thyroid enlargement, no carotid bruits. Lungs: Decreased breath some bilaterally with fine rhonchi positive mild expiratory wheezes with crackles in the bases specially the right compared to the left side. Chest Wall: Decrease expansion with deep inspiration no tenderness and no deformity was found on exam, no costochondral pain or discomfort. Heart: Regular rate and rhythm, S1, S2 positive S3 positive systolic murmur. Back: Symmetric, no curvature, ROM normal, no CVA tenderness. Abdomen: Soft, non-tender, bowel sounds active all four quadrants, no masses, no organomegaly. Extremities: Trace edema decreased pulse in the right side, the left hip pain and discomfort with tenderness that is improved from yesterday. Pulses: 2+ and symmetric. Skin: Skin color, texture, tugor normal, no rashes or lesions. Neurologic: Alert oriented x3 cranial nerves II through XII intact, no motor deficit, no abnormal balance or gait. Final diagnosis 1 severe dyspnea and shortness of breath: Combination of COPD exacerbation along with bibasilar pneumonia with treat underlying disease no steroid can be use at this point continue O2 and updraft treatment. Patient refused nebulizer treatments, or inhalers for discharge. Monitored as an outpatient, improved with IV steroids given while in the hospital. No oral prednisone for taper, at this time monitor as an outpatient 2 COPD exacerbation: Patient will be on DuoNeb and Pulmicort with no systemic steroid. 3 bibasilar/atelectasis on CTA, negative for PE, incentive spirometry no oral antibiotics needed, patient's without cough: 4 intractable left hip pain not a clear etiology most likely from bursitis and tendinitis, ruled out avascular necrosis or occult fracture, MRI of the hip was ordered cleared by orthopedic. The Nina Garcia 5 history of CAD post PCI and stent placement few month ago patient remain on secondary prevention with beta jp, aspirin, Plavix and statin. Compliance for medication 6 hyperlipidemia: Remain on atorvastatin 80 mg daily. 7 recurrent GERD: Patient is on pantoprazole 40 mg a day. 8 hypothyroidism: Continue levothyroxine 75 g daily. 9 hypertension: metoprolol XL 25 mg daily. 10 severe rheumatoid arthritis: Patient is not in any medication currently can benefit if able to tolerate methotrexate steroid can be a good choice if patient is not having any sign of avascular necrosis which can be blamed on steroid use in the past. 11 GI prophylaxis: Patient is on pantoprazole. 12 DVT prophylaxis: Patient will be on heparin subcutaneous. CODE STATUS: Full code. Discharge plan: Plan - Discharge Summary New Discharge Prescriptions: New Aspirin 81 mg PO DAILY chew Baclofen [Lioresal] 5 mg PO BID PRN #60 tab PRN Reason: Muscle Spasm Metoprolol Succinate (ER) [Toprol XL] 25 mg PO HS #30 tab.er.24h Continue Levothyroxine Sodium [Synthroid] 75 mcg PO DAILY Atorvastatin [Lipitor] 80 mg PO HS #30 tab Nitroglycerin Sl Tabs [Nitrostat] 0.4 mg SUBLINGUAL Q5M PRN #25 tab PRN Reason: Chest Pain Clopidogrel [Plavix] 75 mg PO DAILY #30 tab Discharge Medication List Levothyroxine Sodium [Synthroid] 75 mcg PO DAILY 04/13/17 [History] Atorvastatin [Lipitor] 80 mg PO HS #30 tab 12/09/18 [Rx] Clopidogrel [Plavix] 75 mg PO DAILY #30 tab 12/09/18 [Rx] Nitroglycerin Sl Tabs [Nitrostat] 0.4 mg SUBLINGUAL Q5M PRN #25 tab 12/09/18 [Rx] Aspirin 81 mg PO DAILY chew 01/12/20 [Rx] Baclofen [Lioresal] 5 mg PO BID PRN #60 tab 01/12/20 [Rx] Metoprolol Succinate (ER) [Toprol XL] 25 mg PO HS #30 tab.er.24h 01/12/20 [Rx] Follow up Appointment(s)/Referral(s): Darren Enriquez DO [Medical Doctor] - As Needed Jeramie Watts DO [Primary Care Provider] - 1-2 days Patient Instructions/Handouts: Rheumatoid Arthritis (DC)
== END 2020-01-12 14:08 | disposition home or self-care (01) ==
LOC: EC 13:36 → 4SSUR 20:59
PROVIDERS: ADMIT Internal Medicine Geriatric Medicine; ATTEND Internal Medicine Geriatric Medicine
DX: J44.1 Chronic obstructive pulmonary disease with (acute) exacerbation (principal); J18.9 Pneumonia, unspecified organism; I25.10 Atherosclerotic heart disease of native coronary artery without angina pectoris; E78.5 Hyperlipidemia, unspecified; I10 Essential (primary) hypertension; M25.552 Pain in left hip; M25.452 Effusion, left hip; I47.1 Supraventricular tachycardia; E07.9 Disorder of thyroid, unspecified; F17.210 Nicotine dependence, cigarettes, uncomplicated; K58.9 Irritable bowel syndrome, unspecified; Z86.14 Personal history of Methicillin resistant Staphylococcus aureus infection; M06.9 Rheumatoid arthritis, unspecified; Z86.19 Personal history of other infectious and parasitic diseases; Z95.5 Presence of coronary angioplasty implant and graft; Z90.49 Acquired absence of other specified parts of digestive tract; Z90.710 Acquired absence of both cervix and uterus; Z98.890 Other specified postprocedural states; Z80.1 Family history of malignant neoplasm of trachea, bronchus and lung; Z82.61 Family history of arthritis; Z84.1 Family history of disorders of kidney and ureter; Z82.49 Family history of ischemic heart disease and other diseases of the circulatory system; Z79.02 Long term (current) use of antithrombotics/antiplatelets; Z79.890 Hormone replacement therapy; Z79.899 Other long term (current) drug therapy; Z91.040 Latex allergy status; Z88.2 Allergy status to sulfonamides; Z88.8 Allergy status to other drugs, medicaments and biological substances; Z91.048 Other nonmedicinal substance allergy status; Z91.09 Other allergy status, other than to drugs and biological substances
CPT/HCPCS: 96376 ×3; 96366; 96365; 96367; 96375; 99285; 36415; 94640 ×3; 94760; 93005; 85379; 80053; 85652; 85025; 86140; 81003; 73502; 71046; 71275; 73700; 73721; G0378 ×3; U0003; J1200; J2930 ×3; J0456 ×2; J0696; J1885; Q9967

== ENCOUNTER 2020-03-11 06:59 | Emergency (ER) | payer MEDICARE ==
[2020-03-11 07:17] VITALS: BP 141/82; PULSE 73; RESP 17; TEMP 97.9
--- NOTE | 2020-03-11 07:19 | ED ---
General Adult HPI - General Stated complaint: Pain all over Time Seen by Provider: 03/11/20 07:00 Source: patient, EMS, RN notes reviewed, old records reviewed Mode of arrival: EMS - History of Present Illness Initial comments: This is a 69-year-old female history rheumatoid arthritis who states she's been under last stress lately is resting with the of her this past week who states she's been having progressively worsening pain over last 2 days refractory to her home medication. She presents today with complaints of just generalized pain 10+10 in severity. She states is typical of her RA pain. No other modifying factors however no fevers chills nausea vomiting sweats dysuria hematuria cough. - Related Data Home Medications Medication Instructions Recorded Confirmed Levothyroxine Sodium [Synthroid] 75 mcg PO DAILY 04/13/17 03/11/20 Nitroglycerin Sl Tabs [Nitrostat] 0.4 mg SL Q5M PRN 03/11/20 03/11/20 Previous Rx's Medication Instructions Recorded Atorvastatin [Lipitor] 80 mg PO HS #30 tab 12/09/18 Clopidogrel [Plavix] 75 mg PO DAILY #30 tab 12/09/18 Hydrocodone/Acetaminophen [[place] 1 each PO Q6HR PRN #12 tab 03/11/20 5-325] predniSONE [Deltasone] 20 mg PO DAILY #10 tab 03/11/20 Allergies Allergy/AdvReac Type Severity Reaction Status Date / Time adhesive tape Allergy Rash/Hives Verified 03/11/20 08:55 iodine Allergy Anaphylaxis Verified 03/11/20 08:55 latex Allergy Rash/Hives Verified 03/11/20 08:55 sulfamethoxazole Allergy Unknown Verified 03/11/20 08:55 [From Bactrim] trimethoprim [From Bactrim] Allergy Unknown Verified 03/11/20 08:55 STEROIDS AdvReac Confusion Uncoded 03/11/20 08:55 Review of Systems ROS Statement: Those systems with pertinent positive or pertinent negative responses have been documented in the HPI. ROS Other: All systems not noted in ROS Statement are negative. Past Medical History Past Medical History: Coronary Artery Disease (CAD), COPD, Hyperlipidemia, Hypertension, Rheumatoid Arthritis (RA), Supraventricular Tachycardia (SVT), Thyroid Disorder Additional Past Medical History / Comment(s): salivary gland stone-resolved, IBS, CAD post NSTEMI with PCI of the RCA. , History of Any Multi-Drug Resistant Organisms: MRSA, Other MDRO Date of last positivie culture/infection: 2006 MDRO Source:: abscess top of rt leg Past Surgical History: Appendectomy, Section, Cholecystectomy, Heart Catheterization With Stent, Hysterectomy Past Anesthesia/Blood Transfusion Reactions: No Reported Reaction Date of Last Stent Placement:: 12/01 Past Psychological History: No Psychological Hx Reported Past Alcohol Use History: None Reported Past Drug Use History: None Reported - Past Family History Father Family Medical History: Cancer Additional Family Medical History / Comment(s): Father at age 51 from lung cancer with metastatic disease. Mother Family Medical History: Rheumatoid Arthritis (RA) Additional Family Medical History / Comment(s): Mother at age 77 from old age but had history of rheumatoid arthritis. Brother(s) Additional Family Medical History / Comment(s): Patient had 1 brother that from complications of agent orange. Daughter(s) Additional Family Medical History / Comment(s): Patient is 3 children with no major medical problems. Sister(s) Family Medical History: Renal Disease, Vascular Disorder General Exam - General Exam Comments Initial Comments: This is a well-developed well-nourished awake alert oriented 3 female General appearance: alert, anxious, in distress Head exam: Present: atraumatic, normocephalic, normal inspection Eye exam: Present: normal appearance, PERRL, EOMI. Absent: scleral icterus, conjunctival injection, periorbital swelling ENT exam: Present: mucous membranes dry Neck exam: Present: normal inspection. Absent: tenderness, meningismus, lym phadenopathy Respiratory exam: Present: normal lung sounds bilaterally. Absent: respiratory distress, wheezes, rales, rhonchi, stridor Cardiovascular Exam: Present: regular rate, normal rhythm, normal heart sounds. Absent: systolic murmur, diastolic murmur, rubs, gallop, clicks GI/Abdominal exam: Present: soft, normal bowel sounds. Absent: distended, tenderness, guarding, rebound, rigid Extremities exam: Present: normal inspection, full ROM, normal capillary refill. Absent: tenderness, pedal edema, joint swelling, calf tenderness Back exam: Present: normal inspection, other (Some tenderness palpation over the genital muscle groups). Absent: full ROM Neurological exam: Present: alert, oriented X3, CN II-XII intact Psychiatric exam: Present: normal affect, normal mood Skin exam: Present: warm, dry, intact, normal color. Absent: rash Course Vital Signs 03/11/20 07:06 Temperature 97.9 F Pulse Rate 73 Respiratory 17 Rate Blood Pressure 141/82 O2 Sat by Pulse 95 Oximetry - Reevaluation(s) Reevaluation #1: 03/11/20 08:11 Patient is getting some slight relief from the Toradol was administered. Medical Decision Making - Medical Decision Making Patient showing much improved after the medication was rendered I did discuss th e case with Dr. Emery as well as Dr. Leal. Patient does have an appointment to see Dr. Leal tomorrow 9:20 AM she is in agreement that she can go home and follow-up as planned. She is able move much better than she did initially. She does feel much better. She'll be discharged with prescriptions for prednisone 20 mg a day as well as a short course of [place] the patient states she may drank at least filled until she sees her doctor tomorrow - Lab Data Result diagrams: 03/11/20 07:45 03/11/20 07:45 Lab Results 03/11/20 03/11/20 Range/Units 07:45 07:45 WBC 11.1 H (3.8-10.6) k/uL RBC 4.69 (3.80-5.40) m/uL Hgb 10.4 L (11.4-16.0) gm/dL Hct 34.0 (34.0-46.0) % MCV 72.5 L (80.0-100.0) fL MCH 22.2 L (25.0-35.0) pg MCHC 30.6 L (31.0-37.0) g/dL RDW 17.1 H (11.5-15.5) % Plt Count 316 (150-450) k/uL Neutrophils % 75 % Lymphocytes % 12 % Monocytes % 6 % Eosinophils % 4 % Basophils % 1 % Neutrophils # 8.3 H (1.3-7.7) k/uL Lymphocytes # 1.4 (1.0-4.8) k/uL Monocytes # 0.7 (0-1.0) k/uL Eosinophils # 0.5 (0-0.7) k/uL Basophils # 0.1 (0-0.2) k/uL Hypochromasia Marked Anisocytosis Slight Microcytosis Moderate Sodium 139 (137-145) mmol/L Potassium 3.8 (3.5-5.1) mmol/L Chloride 104 (98-107) mmol/L Carbon Dioxide 28 (22-30) mmol/L Anion Gap 7 mmol/L BUN 10 (7-17) mg/dL Creatinine 0.50 L (0.52-1.04) mg/dL Est GFR (CKD-EPI)AfAm >90 (>60 ml/min/1.73 sqM) Est GFR (CKD-EPI)NonAf >90 (>60 ml/min/1.73 sqM) Glucose 133 H (74-99) mg/dL Calcium 8.6 (8.4-10.2) mg/dL Magnesium 1.8 (1.6-2.3) mg/dL Total Bilirubin 0.5 (0.2-1.3) mg/dL AST 23 (14-36) U/L ALT 14 (4-34) U/L Alkaline Phosphatase 90 (38-126) U/L Creatine Kinase 33 (30-135) U/L C-Reactive Protein 27.4 H (<10.0) mg/L Total Protein 6.2 L (6.3-8.2) g/dL Albumin 3.4 L (3.5-5.0) g/dL TSH 3.130 (0.465-4.680) mIU/L - Radiology Data Radiology results: report reviewed (I did review the imaging and report no acute findings.), image reviewed Disposition Clinical Impression: Rheumatoid arthritis flare Disposition: HOME SELF-CARE Condition: Good Instructions (If sedation given, give patient instructions): Rheumatoid Arthritis (ED) Additional Instructions: Keep your appointment with Dr. Leal at 9:20 AM tomorrow Prescriptions: predniSONE [Deltasone] 20 mg PO DAILY #10 tab Hydrocodone/Acetaminophen [[place] 5-325] 1 each PO Q6HR PRN #12 tab PRN Reason: Pain Is patient prescribed a controlled substance at d/c from ED?: Yes When asked, does pt state using other controlled substances?: No If prescribed controlled substance>3 days was MAPS reviewed?: Prescribed <3 Days If opioid is for acute pain is fill amount 7 days or less?: Yes If Rx opioid, was Start Talking consent form obtained?: Yes Referrals: Jeramie Watts DO [Primary Care Provider] - 1-2 days
[2020-03-11] MEDS ORDERED: SODIUM CHLORIDE 0.9% 1,000 ML IV STA ×2 (07:20)
[2020-03-11] MEDS ORDERED: KETOROLAC 30 MG/ML 1 ML VIAL IVP STA (07:21)
--- NOTE | 2020-03-11 08:30 | XR ---
EXAMINATION TYPE: XR chest 2V DATE OF EXAM: 03/11/2020 CLINICAL HISTORY: Body aches. Pain. History of CHF. TECHNIQUE: Frontal and lateral views of the chest are obtained. COMPARISON: Chest radiograph 01/10/2020 FINDINGS: The cardiomediastinal silhouette is within normal limits for size. Pulmonary vasculature i s normal. There is no focal air space opacity, pleural effusion, or pneumothorax seen. The osseous st ructures are intact. IMPRESSION: No acute cardiopulmonary process.
[2020-03-11 08:31] LABS: Anisocytosis Slight; Basophils # (A) 0.1 k/uL (0-0.2); Basophils % (A) 1 %; Eosinophils # (A) 0.5 k/uL (0-0.7); Eosinophils % (A) 4 %; HGB 10.4 gm/dL (11.4-16.0); Hypochromasia Marked; Lymphocytes # (A) 1.4 k/uL (1.0-4.8); Lymphocytes % (A) 12 %; MCH 22.2 pg (25.0-35.0); MCHC 30.6 g/dL (31.0-37.0); MCV 72.5 fL (80.0-100.0); Mean Platelet Volume 7.5; Microcytosis Moderate; Monocytes # (A) 0.7 k/uL (0-1.0); Monocytes % (A) 6 %; Neutrophils # (A) 8.3 k/uL (1.3-7.7); Neutrophils % (A) 75 %; Platelet Count 316 k/uL (150-450); RBC 4.69 m/uL (3.80-5.40); RDW 17.1 % (11.5-15.5); WBC 11.1 k/uL (3.8-10.6)
[2020-03-11 08:32] LABS: ALT 14 U/L (4-34); AST 23 U/L (14-36); African American GFR (CKD) >90 (>60 ml/min/1.73 sqM); Albumin 3.4 g/dL (3.5-5.0); Alkaline Phosphatase 90 U/L (38-126); Anion Gap 7 mmol/L; Blood Urea Nitrogen 10 mg/dL (7-17); Calcium 8.6 mg/dL (8.4-10.2); Carbon Dioxide 28 mmol/L (22-30); Chloride 104 mmol/L (98-107); Creatine Kinase 33 U/L (30-135); Glucose 133 mg/dL (74-99); Magnesium 1.8 mg/dL (1.6-2.3); Non-African American GFR(CKD) >90 (>60 ml/min/1.73 sqM); Potassium 3.8 mmol/L (3.5-5.1); Sodium 139 mmol/L (137-145); Total Bilirubin 0.5 mg/dL (0.2-1.3); Total Protein 6.2 g/dL (6.3-8.2)
[2020-03-11 08:58] LABS: C Reactive Protein 27.4 mg/L (<10.0)
[2020-03-11] MEDS ORDERED: HYDROmorphone 1 MG/ML 1 ML SYRINGE IVP STA (09:54)
[2020-03-11] MEDS ORDERED: methylPREDNISolone SOD SUCCI 125 MG/2 ML VIAL IV STA (10:12)
== END 2020-03-11 11:18 | disposition home or self-care (01) ==
LOC: EC 06:59
DX: M06.9 Rheumatoid arthritis, unspecified (principal); I25.10 Atherosclerotic heart disease of native coronary artery without angina pectoris; I11.0 Hypertensive heart disease with heart failure; I50.9 Heart failure, unspecified; I25.2 Old myocardial infarction; E07.9 Disorder of thyroid, unspecified; Z79.890 Hormone replacement therapy; Z91.048 Other nonmedicinal substance allergy status; Z91.040 Latex allergy status; Z88.1 Allergy status to other antibiotic agents; Z88.2 Allergy status to sulfonamides; Z88.8 Allergy status to other drugs, medicaments and biological substances
CPT/HCPCS: 36415; 80053; 84443; 82550; 83735; 85025; 86140; 71046; 99284; 96374; 96375 ×2; 96361 ×3; J2930; J1885; J1170

== ENCOUNTER 2020-04-04 09:19 | Inpatient (IN) | payer MEDICARE ==
[2020-04-04] MEDS ORDERED: ACETAMINOPHEN TAB 500 MG TAB PO STA (09:49)
[2020-04-04] MEDS ORDERED: IBUPROFEN 600 MG TAB PO STA (09:49)
[2020-04-04] MEDS: SODIUM CHLORIDE 0.9% 1,000 ML IV SCH ×2 (10:36→17:09)
[2020-04-04] MEDS: SODIUM CHLORIDE 0.9% 500 ML 500 ML IV SCH ×3 (10:36→11:36)
[2020-04-04 10:46] LABS: Anisocytosis Slight; Basophils # (A) 0.1 k/uL (0-0.2); Basophils % (A) 0 %; Eosinophils # (A) 0.1 k/uL (0-0.7); Eosinophils % (A) 1 %; HCT 35.3 % (34.0-46.0); HGB 10.6 gm/dL (11.4-16.0); Hypochromasia Marked; Lymphocytes # (A) 0.9 k/uL (1.0-4.8); Lymphocytes % (A) 5 %; MCH 21.8 pg (25.0-35.0); MCHC 30.1 g/dL (31.0-37.0); MCV 72.5 fL (80.0-100.0); Mean Platelet Volume 7.2; Microcytosis Moderate; Monocytes # (A) 0.7 k/uL (0-1.0); Monocytes % (A) 4 %; Neutrophils # (A) 17.3 k/uL (1.3-7.7); Neutrophils % (A) 90 %; Platelet Count 295 k/uL (150-450); RBC 4.87 m/uL (3.80-5.40); RDW 18.6 % (11.5-15.5); WBC 19.3 k/uL (3.8-10.6)
[2020-04-04 11:00] LABS: ALT 21 U/L (4-34); AST 29 U/L (14-36); African American GFR (CKD) >90 (>60 ml/min/1.73 sqM); Albumin 3.8 g/dL (3.5-5.0); Alkaline Phosphatase 76 U/L (38-126); Anion Gap 9 mmol/L; Blood Urea Nitrogen 11 mg/dL (7-17); Calcium 8.5 mg/dL (8.4-10.2); Carbon Dioxide 27 mmol/L (22-30); Chloride 101 mmol/L (98-107); Glucose 142 mg/dL (74-99); Non-African American GFR(CKD) >90 (>60 ml/min/1.73 sqM); Potassium 4.1 mmol/L (3.5-5.1); Sodium 137 mmol/L (137-145); Total Bilirubin 0.8 mg/dL (0.2-1.3); Total Protein 6.6 g/dL (6.3-8.2)
[2020-04-04 11:03] LABS: INR 0.9 (<1.2); Prothrombin Time 9.5 sec (9.0-12.0)
[2020-04-04 11:13] LABS: Partial Thromboplastin Time 20.1 sec (22.0-30.0)
[2020-04-04 12:11] LABS: Appearance,Urine Clear (Clear); Bilirubin,Urine Negative (Negative); Blood,Urine Negative (Negative); Color,Urine Light Yellow; Glucose,Urine (UA) Negative (Negative); Ketones,Urine Negative (Negative); Leukocyte Esterase,Urine Negative (Negative); Nitrite,Urine Negative (Negative); Protein,Urine Negative (Negative); Specific Gravity,Urine 1.008 (1.001-1.035); Urobilinogen,Urine <2.0 mg/dL (<2.0)
--- NOTE | 2020-04-04 12:43 | XR ---
EXAMINATION TYPE: XR chest 2V DATE OF EXAM: 04/04/2020 COMPARISON: 03/11/2020 HISTORY: Shortness of breath TECHNIQUE: Frontal and lateral views of the chest are obtained. FINDINGS: Scattered senescent parenchymal changes noted. Hyperinflation compatible with COPD. No evidence for infiltrate. No evidence for atelectasis. Heart size is stable. Mediastinal structures are stable and grossly unremarkable. No evidence for hilar prominence. Degenerative changes dorsal spine. IMPRESSION: 1. No evidence for acute pulmonary disease.
[2020-04-04] MEDS ORDERED: VANCOMYCIN IV PER PHARMACY 1 EACH MISC MISCELLANE PRN (12:59)
--- NOTE | 2020-04-04 12:59 | ED ---
General Adult HPI - General Chief complaint: Shortness of Breath Stated complaint: poss COVID Time Seen by Provider: 04/04/20 09:20 Source: patient, EMS, RN notes reviewed, old records reviewed Mode of arrival: EMS Limitations: no limitations - History of Present Illness Initial comments: This is a 69-year-old female who presents emergency Department stating last night she didn't feel she had the chills and she has been coughing. Patient did not take her temperature at home. Patient states she is also short of breath. Patient denies any chest pain or palpitations. Patient denies any abdominal pain patient denies nausea vomiting diarrhea. Patient denies any areas of redness or any rashes or lesions on her skin. Patient denies any dysuria he maturia urinary frequency. - Related Data Home Medications Medication Instructions Recorded Confirmed Levothyroxine Sodium [Synthroid] 75 mcg PO DAILY 04/13/17 03/11/20 Nitroglycerin Sl Tabs [Nitrostat] 0.4 mg SL Q5M PRN 03/11/20 03/11/20 Previous Rx's Medication Instructions Recorded Atorvastatin [Lipitor] 80 mg PO HS #30 tab 12/09/18 Clopidogrel [Plavix] 75 mg PO DAILY #30 tab 12/09/18 Hydrocodone/Acetaminophen [[place] 1 each PO Q6HR PRN #12 tab 03/11/20 5-325] predniSONE [Deltasone] 20 mg PO DAILY #10 tab 03/11/20 Allergies Allergy/AdvReac Type Severity Reaction Status Date / Time adhesive tape Allergy Rash/Hives Verified 04/04/20 09:28 iodine Allergy Anaphylaxis Verified 04/04/20 09:28 latex Allergy Rash/Hives Verified 04/04/20 09:28 sulfamethoxazole Allergy Unknown Verified 04/04/20 09:28 [From Bactrim] trimethoprim [From Bactrim] Allergy Unknown Verified 04/04/20 09:28 STEROIDS AdvReac Confusion Uncoded 04/04/20 09:28 Review of Systems ROS Statement: Those systems with pertinent positive or pertinent negative responses have been documented in the HPI. ROS Other: All systems not noted in ROS Statement are negative. Past Medical History Past Medical History: Coronary Artery Disease (CAD), COPD, Hyperlipidemia, Hypertension, Rheumatoid Arthritis (RA), Supraventricular Tachycardia (SVT), Thyroid Disorder Additional Past Medical History / Comment(s): salivary gland stone-resolved, IBS, CAD post NSTEMI with PCI of the RCA. , History of Any Multi-Drug Resistant Organisms: MRSA, Other MDRO Date of last positivie culture/infection: 2006 MDRO Source:: abscess top of rt leg Past Surgical History: Appendectomy, Section, Cholecystectomy, Heart Catheterization With Stent, Hysterectomy Past Anesthesia/Blood Transfusion Reactions: No Reported Reaction Date of Last Stent Placement:: 12/01 Past Psychological History: No Psychological Hx Reported Smoking Status: Current every day smoker Past Alcohol Use History: None Reported Past Drug Use History: None Reported - Past Family History Father Family Medical History: Cancer Additional Family Medical History / Comment(s): Father at age 51 from lung cancer with metastatic disease. Mother Family Medical History: Rheumatoid Arthritis (RA) Additional Family Medical History / Comment(s): Mother at age 77 from old age but had history of rheumatoid arthritis. Brother(s) Additional Family Medical History / Comment(s): Patient had 1 brother that from complications of agent orange. Daughter(s) Additional Family Medical History / Comment(s): Patient is 3 children with no major medical problems. Sister(s) Family Medical History: Renal Disease, Vascular Disorder General Exam - General Exam Comments Initial Comments: GENERAL: Patient is well-developed and well-nourished. Patient is nontoxic and well- hydrated and is in moderate distress. ENT: Neck is soft and supple. No significant lymphadenopathy is noted. Oropharynx is clear. Moist mucous membranes. Neck has full range of motion without eliciting any pain. EYES: The sclera were anicteric and conjunctiva were pink and moist. Extraocular movements were intact and pupils were equal round and reactive to light. Eyelids were unremarkable. PULMONARY: Unlabored respirations. Good breath sounds bilaterally. No audible rales rhonchi or wheezing was noted. CARDIOVASCULAR: There is a regular rate and rhythm without any murmurs gallops or rubs. ABDOMEN: Soft and nontender with normal bowel sounds. SKIN: Skin is clear with no lesions or rashes and otherwise unremarkable. NEUROLOGIC: Patient is alert and oriented x3. Cranial nerves II through XII are grossly intact. Motor and sensory are also intact. Normal speech, volume and content. Symmetrical smile. MUSCULOSKELETAL: Normal extremities with adequate strength and full range of motion. LYMPHATICS: No significant lymphadenopathy is noted PSYCHIATRIC: Normal psychiatric evaluation. Limitations: no limitations Course Vital Signs 04/04/20 04/04/20 04/04/20 09:24 09:53 11:53 Temperature 100.3 F H 102.1 F H 99.4 F Pulse Rate 89 88 Respiratory 18 18 Rate Blood Pressure 134/66 128/74 O2 Sat by Pulse 91 L 98 Oximetry Medical Decision Making - Medical Decision Making X-ray was read as pneumonia at 1245. I started the patient antibiotics prior to this. Patient was considered septic at 1245. I spoke with Dr. Emery he agreed to admit the patient admitted the patient wrote admitting orders. EKG shows sinus rhythm at 90 bpm [place] interval 208 QRSs 80 QT interval 346 QTC is 423 per patient's EKG shows no ST segment elevation or depression. Patient has T-wave inversions in the precordial leads V2 through the 6. These are seen on previous EKG. - Lab Data Result diagrams: 04/04/20 10:08 04/04/20 10:08 Lab Results 04/04/20 04/04/20 04/04/20 Range/Units 10:08 10:08 10:08 WBC 19.3 H (3.8-10.6) k/uL RBC 4.87 (3.80-5.40) m/uL Hgb 10.6 L (11.4-16.0) gm/dL Hct 35.3 (34.0-46.0) % MCV 72.5 L (80.0-100.0) fL MCH 21.8 L (25.0-35.0) pg MCHC 30.1 L (31.0-37.0) g/dL RDW 18.6 H (11.5-15.5) % Plt Count 295 (150-450) k/uL Neutrophils % 90 % Lymphocytes % 5 % Monocytes % 4 % Eosinophils % 1 % Basophils % 0 % Neutrophils # 17.3 H (1.3-7.7) k/uL Lymphocytes # 0.9 L (1.0-4.8) k/uL Monocytes # 0.7 (0-1.0) k/uL Eosinophils # 0.1 (0-0.7) k/uL Basophils # 0.1 (0-0.2) k/uL Hypochromasia Marked Anisocytosis Slight Microcytosis Moderate PT 9.5 (9.0-12.0) sec INR 0.9 (<1.2) APTT 20.1 L (22.0-30.0) sec Sodium (137-145) mmol/L Potassium (3.5-5.1) mmol/L Chloride (98-107) mmol/L Carbon Dioxide (22-30) mmol/L Anion Gap mmol/L BUN (7-17) mg/dL Creatinine (0.52-1.04) mg/dL Est GFR (CKD-EPI)AfAm (>60 ml/min/1.73 sqM) Est GFR (CKD-EPI)NonAf (>60 ml/min/1.73 sqM) Glucose (74-99) mg/dL Plasma Lactic Acid Mario Alberto (0.7-2.0) mmol/L Calcium (8.4-10.2) mg/dL Total Bilirubin (0.2-1.3) mg/dL AST (14-36) U/L ALT (4-34) U/L Alkaline Phosphatase (38-126) U/L Total Protein (6.3-8.2) g/dL Albumin (3.5-5.0) g/dL Urine Color Light Yellow Urine Appearance Clear (Clear) Urine pH 7.0 (5.0-8.0) Ur Specific [place] 1.008 (1.001-1.035) Urine Protein Negative (Negative) Urine Glucose (UA) Negative (Negative) Urine Ketones Negative (Negative) Urine Blood Negative (Negative) Urine Nitrite Negative (Negative) Urine Bilirubin Negative (Negative) Urine Urobilinogen <2.0 (<2.0) mg/dL Ur Leukocyte Esterase Negative (Negative) 04/04/20 04/04/20 Range/Units 10:08 10:08 WBC (3.8-10.6) k/uL RBC (3.80-5.40) m/uL Hgb (11.4-16.0) gm/dL Hct (34.0-46.0) % MCV (80.0-100.0) fL MCH (25.0-35.0) pg MCHC (31.0-37.0) g/dL RDW (11.5-15.5) % Plt Count (150-450) k/uL Neutrophils % % Lymphocytes % % Monocytes % % Eosinophils % % Basophils % % Neutrophils # (1.3-7.7) k/uL Lymphocytes # (1.0-4.8) k/uL Monocytes # (0-1.0) k/uL Eosinophils # (0-0.7) k/uL Basophils # (0-0.2) k/uL Hypochromasia Anisocytosis Microcytosis PT (9.0-12.0) sec INR (<1.2) APTT (22.0-30.0) sec Sodium 137 (137-145) mmol/L Potassium 4.1 (3.5-5.1) mmol/L Chloride 101 (98-107) mmol/L Carbon Dioxide 27 (22-30) mmol/L Anion Gap 9 mmol/L BUN 11 (7-17) mg/dL Creatinine 0.45 L (0.52-1.04) mg/dL Est GFR (CKD-EPI)AfAm >90 (>60 ml/min/1.73 sqM) Est GFR (CKD-EPI)NonAf >90 (>60 ml/min/1.73 sqM) Glucose 142 H (74-99) mg/dL Plasma Lactic Acid Mario Alberto 1.5 (0.7-2.0) mmol/L Calcium 8.5 (8.4-10.2) mg/dL Total Bilirubin 0.8 (0.2-1.3) mg/dL AST 29 (14-36) U/L ALT 21 (4-34) U/L Alkaline Phosphatase 76 (38-126) U/L Total Protein 6.6 (6.3-8.2) g/dL Albumin 3.8 (3.5-5.0) g/dL Urine Color Urine Appearance (Clear) Urine pH (5.0-8.0) Ur Specific [place] (1.001-1.035) Urine Protein (Negative) Urine Glucose (UA) (Negative) Urine Ketones (Negative) Urine Blood (Negative) Urine Nitrite (Negative) Urine Bilirubin (Negative) Urine Urobilinogen (<2.0) mg/dL Ur Leukocyte Esterase (Negative) Critical Care Time Critical Care Time: Yes Total Critical Care Time: 35 Disposition Clinical Impression: Pneumonia, Sepsis Disposition: ADMITTED IP TO THIS HOSP Referrals: Jeramie Watts DO [Primary Care Provider] - 1-2 days Time of Disposition: 12:59
[2020-04-04] MEDS ORDERED: VANCOMYCIN 1,750 MG in SODIUM CHLORIDE 0.9% 500 ML 500 ML IVPB STA (13:10)
[2020-04-04] MEDS ORDERED: NITROGLYCERIN SL TABS 0.4 MG TAB SUBLINGUAL PRN (13:51)
[2020-04-04] MEDS ORDERED: ACETAMINOPHEN TAB 325 MG TAB PO PRN (13:51)
[2020-04-04] MEDS ORDERED: FOLIC ACID 1 MG TAB PO ONE (15:30)
[2020-04-04] MEDS ORDERED: predniSONE 10 MG TAB PO SCH (15:30)
[2020-04-04] MEDS ORDERED: CLOPIDOGREL 75 MG TAB PO STA (15:31)
[2020-04-04] MEDS ORDERED: LEVOTHYROXINE 75 MCG TAB PO ONE (15:45)
[2020-04-04] MEDS ORDERED: IPRATROPIUM-ALBUTEROL 3 ML NEB INHALATION PRN (18:24)
[2020-04-04] MEDS ORDERED: ALBUTEROL NEBULIZED 2.5 MG/3 ML INHALATION PRN (19:41)
[2020-04-04] MEDS ORDERED: BUDESONIDE 0.5 MG/2 ML NEBU INHALATION SCH (20:00)
[2020-04-04] MEDS: ATORVASTATIN 80 MG TAB PO SCH (20:40)
[2020-04-04 20:41] LABS: Glucose,Whole Blood 188 mg/dL (75-99)
[2020-04-04] MEDS: methylPREDNISolone SOD SUCCI 40 MG/ML 1 ML VIAL IV SCH (20:41)
[2020-04-04] MEDS: FLUTICASONE 110 MCG INHALER INHALATION SCH (21:34)
[2020-04-04] MEDS: INSULIN ASPART (NovoLOG) 100 UNIT/ML VIAL SQ SCH (21:40)
--- NOTE | 2020-04-04 22:40 | P.HPIM ---
History of Present Illness H&P Date: 04/04/20 Chief Complaint: Acute respiratory failure, severe shortness of breath, COPD exacerbation, 69-year-old female one of Dr. Watts patient with past medical history of COPD, CAD, hypertension, hyperlipidemia, arrhythmia and rheumatoid arthritis who was started recently on methotrexate injection and has been seen rheumatology regular basis. Patient developed to have significant shortness of breath with severe exhaustion with low-grade temperature symptoms become a lot worse the last 24 hours she felt while she is talking to her family she is not able to express herself and full not been able to take a deep breath she ended up calling 911 and brought to [facility] department by EMS where was seen and evaluated found to have significant hypoxia with expiratory wheezes and slight tightness clinically sounded with right lower lobe pneumonia chest x-ray showed mild scatt ered disease with no evidence acute pneumonia at the time. The patient had sign and symptom of COPD. Patient was started on vancomycin along with Rocephin started on Solu-Medrol DuoNeb and Pulmicort Will admit patient to the hospital. Review of Systems CONSTITUTIONAL: Well-developed no acute respiratory distress. EYES: No icterus sclerae, no conjunctivitis. EARS, NOSE, MOUTH, THROAT, and FACE: No sore throat, lymphadenopathy, carotid bruits or deformity. RESPIRATORY: Significant shortness of breath cough wheezes. CARDIOVASCULAR: Positive chest tightness discomfort with palpitation mild PND.. GASTROINTESTINAL: Mild abdominal pain with nausea no vomiting or constipation, No GI Bleed, no distention or masses. GENITOURINARY: Negative for Hematuria or UTI, no kidney stones. INTEGUMENT/BREAST: Negative for any muscular injury with mild osteoarthritis.. HEMATOLOGIC/LYMPHATIC: Negative for bleed or purpura. MUSCULOSKELTAL: Positive generalized arthralgia and myalgia. NEURLOGICAL: No LOC, Sz or syncope, blurred vision dizziness or abnormality.. BEHAVIORAL/PSYCH: Negative. ENDOCRINE: Negative. Past Medical History Past Medical History: Coronary Artery Disease (CAD), Hyperlipidemia, Hypertension, Rheumatoid Arthritis (RA), Supraventricular Tachycardia (SVT), Thyroid Disorder Additional Past Medical History / Comment(s): CAD post NSTEMI with PCI of the RCA. History of Any Multi-Drug Resistant Organisms: MRSA, Other MDRO Date of last positivie culture/infection: 2006 MDRO Source:: Right leg Past Surgical History: Appendectomy, Section, Cholecystectomy, Heart Catheterization With Stent, Hysterectomy Past Anesthesia/Blood Transfusion Reactions: No Reported Reaction Date of Last Stent Placement:: 12/01 Past Psychological History: No Psychological Hx Reported Smoking Status: Current every day smoker Past Alcohol Use History: None Reported Additional Past Alcohol Use History / Comment(s): She denies any marijuana or illicit drug use. Past Drug Use History: None Reported - Past Family History Father Family Medical History: Cancer Additional Family Medical History / Comment(s): Father at age 51 from lung cancer with metastatic disease. Mother Family Medical History: Rheumatoid Arthritis (RA) Additional Family Medical History / Comment(s): Mother at age 77 from old age but had history of rheumatoid arthritis. Brother(s) Additional Family Medical History / Comment(s): Patient had 1 brother that from complications of agent [place]. Daughter(s) Additional Family Medical History / Comment(s): Patient is 3 children with no major medical problems. Sister(s) Family Medical History: Renal Disease, Vascular Disorder Medications and Allergies Home Medications Medication Instructions Recorded Confirmed Type Levothyroxine Sodium [Synthroid] 75 mcg PO DAILY 04/13/17 04/04/20 History Atorvastatin [Lipitor] 80 mg PO HS #30 tab 12/09/18 04/04/20 Rx Clopidogrel [Plavix] 75 mg PO DAILY #30 tab 12/09/18 04/04/20 Rx Nitroglycerin Sl Tabs [Nitrostat] 0.4 mg SUBLINGUAL Q5M PRN 03/11/20 04/04/20 History Folic Acid 1 mg PO DAILY@1300 04/04/20 04/04/20 History Methotrexate/Pf [Rasuvo 25 mg/0.5 25 mg SQ TH 04/04/20 04/04/20 History ml Autoinj] predniSONE See Taper PO DIRECTED 04/04/20 04/04/20 History Allergies Allergy/AdvReac Type Severity Reaction Status Date / Time adhesive tape Allergy Rash/Hives Verified 04/04/20 13:13 iodine Allergy Anaphylaxis Verified 04/04/20 13:13 latex Allergy Rash/Hives Verified 04/04/20 13:13 sulfamethoxazole Allergy Unknown Verified 04/04/20 13:13 [From Bactrim] trimethoprim [From Bactrim] Allergy Unknown Verified 04/04/20 13:13 STEROIDS AdvReac Confusion Uncoded 04/04/20 13:13 Physical Exam Vitals: Vital Signs Temp Pulse Pulse Resp BP BP Pulse Ox 04/04/20 14:45 99.0 F 81 16 106/65 92 L 04/04/20 14:11 98 F 85 20 135/75 96 04/04/20 11:53 99.4 F 88 18 128/74 98 04/04/20 09:53 102.1 F H 04/04/20 09:24 100.3 F H 89 18 134/66 91 L Intake and Output 04/04/20 04/04/20 04/04/20 06:59 14:59 22:59 Other: Weight 81.647 kg General Appearance: Alert, cooperative, no distress, appears stated age. Neck HEENT: Supple, no lymphadenopathy, no thyroid enlargement, no carotid bruits. Lungs: Decreased breath some bilaterally with fine rhonchi and crackles in the right base positive expiratory wheezes. Chest Wall: Chest wall normal expansion with deep inspiration no tenderness and no deformity was found on exam, no costochondral pain or discomfort. Heart: Regular rate and rhythm, S1, S2 normal, no murmur, rub or gallop. Back: Symmetric, no curvature, ROM normal, no CVA tenderness. Abdomen: Soft, non-tender, bowel sounds active all four quadrants, no masses, no organomegaly. Extremities: Extremities normal, atraumatic, no cyanosis or edema. Pulses: 2+ and symmetric. Skin: Skin color, texture, tugor normal, no rashes or lesions. Neurologic: Alert oriented x3 cranial nerves II through XII intact, no motor deficit, no abnormal balance or gait. Results CBC & Chem 7: 04/04/20 10:08 04/04/20 10:08 Labs: Abnormal Lab Results - Last 24 Hours (Table) 04/04/20 04/04/20 04/04/20 Range/Units 10:08 10:08 10:08 WBC 19.3 H (3.8-10.6) k/uL Hgb 10.6 L (11.4-16.0) gm/dL MCV 72.5 L (80.0-100.0) fL MCH 21.8 L (25.0-35.0) pg MCHC 30.1 L (31.0-37.0) g/dL RDW 18.6 H (11.5-15.5) % Neutrophils # 17.3 H (1.3-7.7) k/uL Lymphocytes # 0.9 L (1.0-4.8) k/uL APTT 20.1 L (22.0-30.0) sec Creatinine 0.45 L (0.52-1.04) mg/dL Glucose 142 H (74-99) mg/dL Thrombosis Risk Factor Assmnt - Choose All That Apply Any of the Below Risk Factors Present?: Yes Each Factor Represents 1 point: Obesity (BMI >25), Serious lung disease incl. pneumonia (< 1month) Other Risk Factors: Yes Each Risk Factor Represents 2 Points: Age 61-74 years Other congenital or acquired thrombophilia - If yes, enter type in comment: No Thrombosis Risk Factor Assessment Total Risk Factor Score: 4 Thrombosis Risk Factor Assessment Level: Moderate Risk Assessment and Plan Assessment: 1 acute respiratory failure: Combination of pneumonia along with COPD ex acerbation continue O2 along with updraft and antibiotics. 2 possible code 19: Testing was done and still pending at this point. 3 COPD exacerbation: Will add Solu-Medrol 40 mg every 8 hours DuoNeb and Pulmicort current to to see pulmonary. 4 bilateral pneumonia: Most likely gram-negative continue current antibiotics patient was started on vancomycin and Rocephin. 5 rheumatoid arthritis: Has been on methotrexate and prednisone 15 mg daily would hold off methotrexate for now. 6 hyperlipidemia: Remain on atorvastatin 80 mg daily. 7 hypothyroidism: Remain on levothyroxine 75 g daily. 8 GI prophylaxis: Patient will be on pantoprazole. 9 history of CAD post non-ST OK with PCI of the RCA: Has been doing well still on secondary prevention seen cardiology regular basis. 10 Supraventricular tachycardia: With no symptoms lately patient is doing very well. 11 CODE STATUS: Full code. Admit patient to inpatient service for more than 2 night stay.
[2020-04-04] MEDS: VANCOMYCIN 1,500 MG in SODIUM CHLORIDE 0.9% 250 ML IVPB SCH (23:44)
[2020-04-05] MEDS: SODIUM CHLORIDE 0.9% 1,000 ML IV SCH ×3 (05:04→23:50)
[2020-04-05] MEDS: LEVOTHYROXINE 75 MCG TAB PO SCH (06:18)
[2020-04-05 07:17] LABS: Glucose,Whole Blood 160 mg/dL (75-99)
[2020-04-05 07:44] LABS: Anisocytosis Slight; Basophils % (A) 0 %; Eosinophils % (A) 0 %; HCT 31.9 % (34.0-46.0); HGB 9.2 gm/dL (11.4-16.0); Hypochromasia Marked; Lymphocytes # (A) 0.8 k/uL (1.0-4.8); Lymphocytes % (A) 3 %; MCH 21.8 pg (25.0-35.0); MCV 75.1 fL (80.0-100.0); Mean Platelet Volume 7.4; Microcytosis Moderate; Monocytes # (A) 0.5 k/uL (0-1.0); Monocytes % (A) 2 %; Neutrophils % (A) 94 %; Platelet Count 255 k/uL (150-450); RBC 4.24 m/uL (3.80-5.40); RDW 18.7 % (11.5-15.5); WBC 22.4 k/uL (3.8-10.6)
[2020-04-05] MEDS: INSULIN ASPART (NovoLOG) 100 UNIT/ML VIAL SQ SCH ×4 (07:49→21:17)
[2020-04-05 07:50] LABS: ALT 19 U/L (4-34); AST 23 U/L (14-36); African American GFR (CKD) >90 (>60 ml/min/1.73 sqM); Alkaline Phosphatase 59 U/L (38-126); Anion Gap 6 mmol/L; Blood Urea Nitrogen 10 mg/dL (7-17); Calcium 7.8 mg/dL (8.4-10.2); Carbon Dioxide 25 mmol/L (22-30); Chloride 108 mmol/L (98-107); Glucose 153 mg/dL (74-99); Non-African American GFR(CKD) >90 (>60 ml/min/1.73 sqM); Potassium 4.1 mmol/L (3.5-5.1); Sodium 139 mmol/L (137-145); Total Bilirubin 0.6 mg/dL (0.2-1.3); Total Protein 5.5 g/dL (6.3-8.2)
[2020-04-05] MEDS: methylPREDNISolone SOD SUCCI 40 MG/ML 1 ML VIAL IV SCH ×4 (07:50→23:50)
[2020-04-05] MEDS: VANCOMYCIN 1,500 MG in SODIUM CHLORIDE 0.9% 250 ML IVPB SCH ×3 (07:50→23:50)
[2020-04-05] MEDS: PANTOPRAZOLE 40 MG/10 ML VIAL IVP SCH (07:50)
[2020-04-05] MEDS: CLOPIDOGREL 75 MG TAB PO SCH (07:50)
[2020-04-05] MEDS: TIOTROPIUM 18 MCG/PUFF INHALER INHALATION PRN (09:02)
[2020-04-05] MEDS: FLUTICASONE 110 MCG INHALER INHALATION SCH (09:02)
--- NOTE | 2020-04-05 10:22 | P.PN ---
Subjective Progress Note Date: 04/05/20 Principal diagnosis: Pneumonia Patient care to be hemodynamically stable no major events reported by nursing staff patient that this morning sitting at the bedside denying chest pain shortness breath nausea vomiting dumping dizziness lightheaded this or blurry vision was able to produce some yellow sputum this morning and that made her feel better. Patient is still tired and fatigued and her daughter on the phone listening to the composition Objective - Vital Signs Vital signs: Vital Signs Temp 98.0 F 04/05/20 07:13 Pulse 81 04/05/20 09:43 Resp 16 04/05/20 09:43 BP 152/73 04/05/20 09:43 Pulse Ox 95 04/05/20 09:43 Intake & Output 04/04/20 04/05/20 04/05/20 18:59 06:59 18:59 Intake Total 1840 Balance 1840 Weight 81.647 kg Intake: Intake, IV Titration 1540 Amount Sodium Chloride 0.9% 1, 1040 000 ml @ 130 mls/hr IV . Q7H42M [facility] Rx#:[id number] Vancomycin 1,750 mg In 500 Sodium Chloride 0.9% 500 ml 500 ml @ 167 mls/hr IVPB ONCE STA Rx#: [id number] Oral 300 Other: Voiding Method Toilet # Voids 1 - Exam Gen.: in stated age, no acute distress Heart: Normal S1-S2 Lungs: Coarse breathing sounds bilaterally with scattered rhonchi no wheezing appreciated Abdomen: Soft, no tenderness, positive bowel sounds in all 4 quadrant no guarding or rebound Skin: No new rash Psych: Alert and oriented 3 Neuro: No focal deficit - Labs CBC & Chem 7: 04/05/20 06:33 04/05/20 06:33 Labs: Abnormal Lab Results - Last 24 Hours (Table) 04/04/20 04/04/20 04/04/20 Range/Units 10:08 10:08 10:08 WBC 19.3 H (3.8-10.6) k/uL Hgb 10.6 L (11.4-16.0) gm/dL Hct (34.0-46.0) % MCV 72.5 L (80.0-100.0) fL MCH 21.8 L (25.0-35.0) pg MCHC 30.1 L (31.0-37.0) g/dL RDW 18.6 H (11.5-15.5) % Neutrophils # 17.3 H (1.3-7.7) k/uL Lymphocytes # 0.9 L (1.0-4.8) k/uL APTT 20.1 L (22.0-30.0) sec Chloride (98-107) mmol/L Creatinine 0.45 L (0.52-1.04) mg/dL Glucose 142 H (74-99) mg/dL POC Glucose (mg/dL) (75-99) mg/dL Calcium (8.4-10.2) mg/dL Total Protein (6.3-8.2) g/dL Albumin (3.5-5.0) g/dL 04/04/20 04/05/20 04/05/20 Range/Units 20:40 06:33 06:33 WBC 22.4 H (3.8-10.6) k/uL Hgb 9.2 L (11.4-16.0) gm/dL Hct 31.9 L (34.0-46.0) % MCV 75.1 L (80.0-100.0) fL MCH 21.8 L (25.0-35.0) pg MCHC 29.0 L (31.0-37.0) g/dL RDW 18.7 H (11.5-15.5) % Neutrophils # 21.0 H (1.3-7.7) k/uL Lymphocytes # 0.8 L (1.0-4.8) k/uL APTT (22.0-30.0) sec Chloride 108 H (98-107) mmol/L Creatinine 0.46 L (0.52-1.04) mg/dL Glucose 153 H (74-99) mg/dL POC Glucose (mg/dL) 188 H (75-99) mg/dL Calcium 7.8 L (8.4-10.2) mg/dL Total Protein 5.5 L (6.3-8.2) g/dL Albumin 3.0 L (3.5-5.0) g/dL 04/05/20 Range/Units 07:12 WBC (3.8-10.6) k/uL Hgb (11.4-16.0) gm/dL Hct (34.0-46.0) % MCV (80.0-100.0) fL MCH (25.0-35.0) pg MCHC (31.0-37.0) g/dL RDW (11.5-15.5) % Neutrophils # (1.3-7.7) k/uL Lymphocytes # (1.0-4.8) k/uL APTT (22.0-30.0) sec Chloride (98-107) mmol/L Creatinine (0.52-1.04) mg/dL Glucose (74-99) mg/dL POC Glucose (mg/dL) 160 H (75-99) mg/dL Calcium (8.4-10.2) mg/dL Total Protein (6.3-8.2) g/dL Albumin (3.5-5.0) g/dL Assessment and Plan Plan: 1. Acute respiratory failure with hypoxia. 2. Pneumonia. 3. Rheumatoid arthritis with immune suppressant status on methotrexate and prednisone at home. 4. Hyperlipidemia. 5. Hypothyroidism. Plan discussed with patient and her daughter over the phone to continue IV antibiotics at this point as patient is receiving Rocephin and received vancomycin yesterday and I would like to discontinue the encourage oral intake encourage ambulation and monitor her hemodynamic closely and use oxygen to maintain her oxygenation around 94%. We'll monitor her white blood count closely monitor hemodynamic and monitor her hemoglobin. We'll continue home medication and continue DVT prophylaxis
[2020-04-05 11:13] LABS: C Reactive Protein 193.2 mg/L (<10.0)
[2020-04-05 11:33] LABS: Glucose,Whole Blood 238 mg/dL (75-99)
[2020-04-05] MEDS ORDERED: FOLIC ACID 1 MG TAB PO SCH (13:00)
[2020-04-05 16:40] LABS: Glucose,Whole Blood 173 mg/dL (75-99)
--- NOTE | 2020-04-05 16:40 | CONS ---
CONSULTATION PULMONARY/CRITICAL CARE CONSULTATION: DATE OF CONSULTATION: April 05, 2020. REASON FOR CONSULTATION: Shortness of breath. HISTORY OF PRESENT ILLNESS: A 69-year-old female who presented to the emergency department via EMS on April 04, 2020 at 9:00 am, the patient stated that she did not feel well. She was having cough and shortness of breath. She had chest congestion. She also had fever and chills. The patient just did not feel like she was breathing normally. She was quite short of breath. She also just felt like her COPD was acting up. She was also concerned about Covid-19 infection. She denies any recent exposures. She denies any travel. She denies any contact with any other individuals who apparently had Covid-19 infection. Anyway, she was seen in the emergency room and admitted to the hospital. Current home medications reviewed. She is on Synthroid, Nitrostat, Lipitor Plavix, [place] and prednisone. ALLERGIES: INCLUDE ADHESIVE TAPE, IODINE, LATEX, SULFAMETHOXAZOLE, TRIMETHOPRIM, AND STEROIDS. She does mention after we review her medications and allergies with her that she recently started taking methotrexate for rheumatoid arthritis, and also started on prednisone for pain. She has been on methotrexate for about a month and steroids for about a month. It was given to her by Dr. Leal. She wonders whether or not that had anything to do with the way she was feeling. PAST MEDICAL HISTORY: Positive for CAD, COPD, hyperlipidemia, hypertension, rheumatoid arthritis, supraventricular tachycardia, and hypothyroidism. She also has a history of sialolithiasis, irritable bowel syndrome, non ST-segment elevation myocardial infarction, and previous stenting of the right coronary artery. SURGICAL HISTORY: Includes appendectomy, abscess on the right leg, status post excision, , cholecystectomy, heart catheterization with stent, hysterectomy. SOCIAL HISTORY: Positive for ongoing tobacco use and nicotine addiction. She denies alcohol and illicit drug use. FAMILY HISTORY: Positive for father who from lung cancer at age 51. A mother who has a history of rheumatoid arthritis and from 77, at 77, a brother who from complications of Agent [place], 3 siblings without any medical issues whatsoever, and a sister with kidney disease and vascular disorder. REVIEW OF SYSTEMS: CONSTITUTIONAL: Fever. NEUROLOGIC negative. HEENT negative. CARDIOVASCULAR negative. PULMONARY: Shortness of breath, chest congestion, cough. GI negative. negative. RHEUMATOLOGIC: Negative. IMMUNOLOGIC negative. ENDOCRINOLOGIC negative. DERMATOLOGIC negative. PHYSICAL EXAMINATION: VITAL SIGNS: Current vital signs are reviewed. Temperature is 98, heart rate 81, respiratory rate 16, blood pressure 152/73 mean 89, room air saturation 95%. GENERAL: Appears in no acute distress. HEENT: Examination is grossly unremarkable. NECK: Supple full range of motion. No adenopathy. Neck veins are flat. CARDIOVASCULAR: Examination reveals regular rhythm and rate. Heart rate is mid 70s, low 80s. S1, S2 normal. There is no murmur. LUNGS: A few scattered rhonchi. Breath sounds equal. She coughs frequently. No wheezes or crackles. ABDOMEN: Soft. Bowel sounds are heard. EXTREMITIES are intact. No cyanosis, clubbing or edema. SKIN: Without rash. NEUROLOGIC: Examination is brief but nonfocal. LABS: Reviewed. White count 22.4, hemoglobin 9.2, hematocrit 31.9, platelet count 355,000. PT/INR normal. PTT 20.1. D-dimer 0.66. Sodium 139, potassium 4.1, chloride 108. CO2 25, anion gap 6. BUN and creatinine were 10 and 0.46. Glucose is elevated. Calcium 7.8, C-reactive protein 193, LDH 614. Total protein 5.5, albumin 3.0. Urine is negative. Dickson virus testing by PCR was negative. Current microbiology including blood cultures are negative for pending. A chest x-ray is reviewed. It shows no evidence of acute disease. I was impressed with the possibility of a possible right lower lobe infiltrate, but the radiologist read that area as being normal. Medications are reviewed. Currently, she is on Tylenol, albuterol updrafts, Lipitor, ceftriaxone, Plavix, Flovent inhaler, folic acid, insulin, levothyroxine, Solu-Medrol, sublingual nitroglycerin, Protonix, saline, Spiriva and vancomycin. ASSESSMENT: 1. Chronic obstructive pulmonary disease exacerbation complicated by purulent tracheobronchitis, without pollo pneumonia, although I question potential infiltrate in the right lower lobe. A repeat chest x-ray will be done tomorrow. 2. History of rheumatoid arthritis, currently on methotrexate for a month and prednisone with a burst and taper. 3. History of chronic obstructive pulmonary disease from previous and ongoing tobacco use. 4. History of hyperlipidemia. 5. Hypothyroidism. 6. Coronary artery disease. 7. Hyperlipidemia. 8. Hypertension. 9. Rheumatoid arthritis. 10.Supraventricular tachycardia. 11.Sialolithiasis. 12.Irritable bowel syndrome. 13.History of non ST-segment elevation myocardial infarction with previous PCI and stenting of the right coronary artery. PLAN: Please see my orders. Medications are reviewed. We will continue to follow. Prognosis is guarded. We will repeat a chest x-ray. Additional recommendations and suggestions are for forthcoming. COVID-19 testing was negative. MMODL / IJN: [id number] /
[2020-04-05 20:41] LABS: Glucose,Whole Blood 182 mg/dL (75-99)
[2020-04-05] MEDS ORDERED: ALBUTEROL HFA INHALER INHALATION PRN (20:59)
[2020-04-05] MEDS: SYMBICORT 160-4.5 MCG INHALER INHALATION SCH (21:00)
[2020-04-05] MEDS: ATORVASTATIN 80 MG TAB PO SCH (21:17)
[2020-04-06] MEDS: LEVOTHYROXINE 75 MCG TAB PO SCH (05:51)
[2020-04-06] MEDS ORDERED: VANCOMYCIN TROUGH DUE 1 EACH MISC MISCELLANE ONE (07:00)
--- NOTE | 2020-04-06 07:03 | XR ---
EXAMINATION TYPE: XR chest 2V DATE OF EXAM: 04/06/2020 COMPARISON: Chest x-ray 2 days earlier. HISTORY: COPD and pneumonia. TECHNIQUE: Frontal and lateral views of the chest are obtained. FINDINGS: There is background Chronic emphysematous change without suspicious new focal air space op acity or pneumothorax seen. Small to tiny bilateral pleural effusions remain present seen best on lat eral view and stable. The cardiac silhouette size remains mildly enlarged with atherosclerotic change aortic knob. The osseous structures remain intact. IMPRESSION: Chronic emphysematous change and cardiomegaly with small to tiny bilateral pleural effus ions. No significant change from most recent x-ray. No new suspicious focal infiltrate.
[2020-04-06 07:13] LABS: Glucose,Whole Blood 160 mg/dL (75-99)
[2020-04-06] MEDS: PANTOPRAZOLE 40 MG/10 ML VIAL IVP SCH (08:04)
[2020-04-06] MEDS: methylPREDNISolone SOD SUCCI 40 MG/ML 1 ML VIAL IV SCH (08:04)
[2020-04-06] MEDS: CLOPIDOGREL 75 MG TAB PO SCH (08:04)
[2020-04-06] MEDS: INSULIN ASPART (NovoLOG) 100 UNIT/ML VIAL SQ SCH (08:04)
[2020-04-06] MEDS: SYMBICORT 160-4.5 MCG INHALER INHALATION SCH (08:20)
[2020-04-06] MEDS: TIOTROPIUM 18 MCG/PUFF INHALER INHALATION PRN (08:20)
[2020-04-06 08:28] VITALS: BP 155/72; PULSE 72; RESP 18; TEMP 98.5
[2020-04-06] MEDS: VANCOMYCIN 1,500 MG in SODIUM CHLORIDE 0.9% 250 ML IVPB SCH (10:05)
--- NOTE | 2020-04-06 10:25 | P.DS ---
Providers Date of admission: 04/04/20 12:59 Attending physician: uRdy Emery Consults: 04/04/20 18:23 Consult Physician Routine Consulting Provider: Rasheed Henry Consult Reason/Comments: COPD excacerbation and Pneumonia Do you want consulting provider notified?: Yes Primary care physician: [facility] Course: This is 69 years old female with past medical history significant for rheumatoid arthritis on methotrexate and prednisone with immune suppressant status presents to the hospital with worsening respiratory symptoms and was diagnosed with pneumonia. Patient was evaluated by pulmonary who recommended IV antibiotics and patient had significant improvement during the hospital stay with resolution of her shortness of breath on the day prior to discharge patient was able to ambulate on her own without assistance and was back to her baseline level of activity. I recommended patient to stay in the hospital to continue at least 3 days of IV antibiotics and follow up on final culture results but patient spoke to pulmonary who agreed to discharge patient with close follow-up with her primary care physician. Patient instructed to avoid any sick contact to avoid any visitors and stay home and continue with self quarantine until completing dose of Levaquin 750 mg for total of 5 days. We will follow up on culture results during this hospital stay and updated patient's based on clinical progress with patient seems to be stable I would like to discharge patient home to follow-up with her primary care physician within 2 days. Patient developed some periorbital edema like to related to fluid infusion during the hospital stay advice to take her when necessary diuretics for 2 days and follow-up with her primary care physician for this is determination on her fluid status. Patient advised to continue her methotrexate and prednisone the way she was prescribed before and follow-up with her blogs manager unscheduled appointment. Patient was discharged in stable condition Plan - Discharge Summary Discharge Rx Participant: No New Discharge Prescriptions: No Action Levothyroxine Sodium [Synthroid] 75 mcg PO DAILY Atorvastatin [Lipitor] 80 mg PO HS #30 tab Clopidogrel [Plavix] 75 mg PO DAILY #30 tab Nitroglycerin Sl Tabs [Nitrostat] 0.4 mg SUBLINGUAL Q5M PRN PRN Reason: Chest Pain predniSONE See Taper PO DIRECTED Methotrexate/Pf [Rasuvo 25 mg/0.5 ml Autoinj] 25 mg SQ TH Folic Acid 1 mg PO DAILY@1300 Discharge Medication List Levothyroxine Sodium [Synthroid] 75 mcg PO DAILY 04/13/17 [History] Atorvastatin [Lipitor] 80 mg PO HS #30 tab 12/09/18 [Rx] Clopidogrel [Plavix] 75 mg PO DAILY #30 tab 12/09/18 [Rx] Nitroglycerin Sl Tabs [Nitrostat] 0.4 mg SUBLINGUAL Q5M PRN 03/11/20 [History] Folic Acid 1 mg PO DAILY@1300 04/04/20 [History] Methotrexate/Pf [Rasuvo 25 mg/0.5 ml Autoinj] 25 mg SQ TH 04/04/20 [History] predniSONE See Taper PO DIRECTED 04/04/20 [History] Follow up Appointment(s)/Referral(s): Jeramie Watts DO [Primary Care Provider] - 1-2 days
--- NOTE | 2020-04-06 10:30 | P.PN ---
Subjective Progress Note Date: 04/06/20 Principal diagnosis: Acute exacerbation chronic obstructive pulmonary disease, complicated by purulent tracheobronchitis but no evidence of pollo pneumonia The patient is seen today 04/06/2020 in follow-up on the regular medical floor. She is sitting up at the bedside. Awake and alert in no acute distress. Breathing quite a bit better today as compared to yesterday. Chest x-ray reveals chronic emphysematous changes and cardiomegaly with a tiny bilateral pleural effusions. No significant change from previous. No suspicious focal infiltrate. Blood culture reveals no growth. Blood glucose 160. Remains on Symbicort, Spiriva, albuterol, ceftriaxone. Objective - Vital Signs Vital signs: Vital Signs Temp 98.5 F 04/06/20 07:08 Pulse 72 04/06/20 08:55 Resp 18 04/06/20 08:55 BP 155/72 04/06/20 07:08 Pulse Ox 92 L 04/06/20 07:08 Intake & Output 04/05/20 04/06/20 04/06/20 18:59 06:59 18:59 Intake Total 780 200 Balance 780 200 Intake: Intake, IV Titration 300 Amount Vancomycin 1,500 mg In 250 Sodium Chloride 0.9% 250 ml @ 125 mls/hr IVPB Q8H [facility] Rx#:[id number] cefTRIAXone 1 gm In 50 Sodium Chloride 0.9% 50 ml @ 100 mls/hr IVPB Q24HR [facility] Rx#:[id number] Oral 480 200 Other: Voiding Method Toilet Toilet Toilet # Voids 3 1 1 - Exam GENERAL EXAM: Alert, active, pleasant 69-year-old female patient, on room air, comfortable in no apparent distress. HEAD: Normocephalic. EYES: Normal reaction of pupils, equal size. NOSE: Clear with pink turbinates. THROAT: No erythema or exudates. NECK: No masses, no JVD. CHEST: No chest wall deformity. LUNGS: Equal air entry with no crackles, wheeze, rhonchi or dullness. Diminished. CVS: S1 and S2 normal with no audible murmur, regular rhythm. ABDOMEN: No hepatosplenomegaly, normal bowel sounds, no guarding or rigidity. SPINE: No scoliosis or deformity SKIN: No rashes CENTRAL NERVOUS SYSTEM: No focal deficits, tone is normal in all 4 extremities. EXTREMITIES: There is no peripheral edema. No clubbing, no cyanosis. Peripheral pulses are intact. - Labs CBC & Chem 7: 04/05/20 06:33 04/05/20 06:33 Labs: Abnormal Lab Results - Last 24 Hours (Table) 04/05/20 04/05/20 04/05/20 Range/Units 06:43 06:43 06:43 D-Dimer 0.66 H (<0.60) mg/L FEU POC Glucose (mg/dL) (75-99) mg/dL C-Reactive Protein 193.2 H (<10.0) mg/L Procalcitonin 0.21 H (0.02-0.09) ng/mL 04/05/20 04/05/20 04/05/20 Range/Units 11:27 16:35 20:38 D-Dimer (<0.60) mg/L FEU POC Glucose (mg/dL) 238 H 173 H 182 H (75-99) mg/dL C-Reactive Protein (<10.0) mg/L Procalcitonin (0.02-0.09) ng/mL 04/06/20 Range/Units 07:07 D-Dimer (<0.60) mg/L FEU POC Glucose (mg/dL) 160 H (75-99) mg/dL C-Reactive Protein (<10.0) mg/L Procalcitonin (0.02-0.09) ng/mL Microbiology - Last 24 Hours (Table) 04/04/20 10:08 Blood Culture - Preliminary Blood No Growth after 24 hours 04/04/20 10:08 Blood Culture - Preliminary Blood No Growth after 24 hours Assessment and Plan Assessment: Acute exacerbation of chronic obstructive pulmonary disease, complicated by purulent tracheobronchitis. No pollo evidence of pneumonia History of chronic obstructive pulmonary disease and previous chronic tobacco dependence History of rheumatoid arthritis currently on methotrexate for approximately one month along with a prednisone burst and taper Hypertension Hyperlipidemia Hypothyroidism Coronary artery disease with previous stenting of the RCA History of SVT Irritable bowel syndrome Plan: The patient was seen and evaluated by Dr. Henry She is stable for discharge from the pulmonary standpoint Complete prednisone burst and taper Complete course of antibiotics Continue Symbicort, Spiriva, albuterol Follow-up in the office in 1-2 weeks' time I, the cosigning physician, performed a history & physical examination of the patient. Lungs sounds are clear, diminished. Maintaining good O2 saturations in the 90s on room air. I discussed the assessment and plan of care with my nurse practitioner, Nadine Hays. I attest to the above note as dictated by her.
[2020-04-07] MEDS ORDERED: PANTOPRAZOLE 40 MG TABLET PO SCH (09:00)
--- NOTE | 2020-04-09 00:39 | CDI ---
Documentation Clarification Form Date: 04/09/2020 From: [place] Phone: If you have a question about this query, please contact Mona Wagoner Loss Control Consultant at [phone] between 8am and 5pm. Admit Date: 04/04/2020 Discharge Date: 04/06/2020 Patient Name: Soila Mccullough Visit Number: [id number] ATTENTION: The Clinical Documentation Specialists (CDI) and [facility] Coding Staff appreciate your assistance in clarifying documentation. Please respond to the clarification below the line at the bottom and electronically sign. The CDI & [facility] Coding staff will review the response and follow-up if needed. Please note: Queries are made part of the Legal Health Record. If you have any questions, please contact the author of this message via ITS. Dear Rudy Davis MD, The patient presented with Pneumonia the following ED clinical impression alone Sepsis was documented. History/Risk Factors: Pneumonia, CAD, HTN Clinical Indicators: WBC : 19.3 H (3.8-10.6) k/uL Lactic acid: 1.5 Blood cultures: No Growth Vitals signs on admission: 04/04/20 04/04/20 04/04/20 09:24 09:53 11:53 Temperature 100.3 F H 102.1 F H 99.4 F Pulse Rate 89 88 Respiratory rate 18 18 Blood Pressure 134/66 128/74 O2 Sat Oximetry by Pulse 91 L 98 Treatment:Complete prednisone burst and taper Complete course of antibiotics Continue Symbicort, Spiriva, albuterol. Antibiotics: IV antibiotics. In your professional opinion, please clarify if these findings signify one of the following conditions, whether the condition is POA, and cause, if known: Condition Sepsis Due to Pneumonia Sepsis, unspecified, Sepsis ruled out Other, please specify (Last Revision: November 2017) MTDD
== END 2020-04-06 11:19 | disposition home or self-care (01) | DRG 193 ==
LOC: EC 09:19 → 4SSUR 12:59
PROVIDERS: ADMIT Internal Medicine Geriatric Medicine; ATTEND Internal Medicine Geriatric Medicine
DX: J18.9 Pneumonia, unspecified organism (principal); J96.01 Acute respiratory failure with hypoxia; J44.0 Chronic obstructive pulmonary disease with (acute) lower respiratory infection; J44.1 Chronic obstructive pulmonary disease with (acute) exacerbation; Z16.24 Resistance to multiple antibiotics; I47.1 Supraventricular tachycardia; I25.10 Atherosclerotic heart disease of native coronary artery without angina pectoris; F17.200 Nicotine dependence, unspecified, uncomplicated; K58.9 Irritable bowel syndrome, unspecified; E03.9 Hypothyroidism, unspecified; K11.5 Sialolithiasis; I11.9 Hypertensive heart disease without heart failure; E78.5 Hyperlipidemia, unspecified; Z20.828 Contact with and (suspected) exposure to other viral communicable diseases; M06.9 Rheumatoid arthritis, unspecified; I25.2 Old myocardial infarction; Z95.5 Presence of coronary angioplasty implant and graft; Z90.49 Acquired absence of other specified parts of digestive tract; Z90.89 Acquired absence of other organs; Z90.710 Acquired absence of both cervix and uterus; Z84.1 Family history of disorders of kidney and ureter; Z79.02 Long term (current) use of antithrombotics/antiplatelets; Z79.899 Other long term (current) drug therapy; Z79.52 Long term (current) use of systemic steroids; Z91.040 Latex allergy status; R60.9 Edema, unspecified; Z88.2 Allergy status to sulfonamides; Z88.8 Allergy status to other drugs, medicaments and biological substances; Z91.048 Other nonmedicinal substance allergy status; Z79.890 Hormone replacement therapy; Z98.890 Other specified postprocedural states; Z80.1 Family history of malignant neoplasm of trachea, bronchus and lung; Z82.61 Family history of arthritis
CPT/HCPCS: 36415; 71046; 80053; 80202; 81003; 83605; 83615; 84145; 85025; 85379; 85610; 85730; 86140; 87040; 93005; 94640; 96365; 99291

== ENCOUNTER → 2020-06-23 | Outpatient (CLI) | payer MEDICARE ==
--- NOTE | 2020-06-23 08:25 | US ---
EXAMINATION TYPE: US extremity nonvasc mass LT DATE OF EXAM: 06/23/2020 COMPARISON: NONE CLINICAL HISTORY: M85.462 Left Tibial Cyst. Lump left calf area. Scanned area of concern no abnormalities seen. IMPRESSION: No distinct abnormality appreciated at this time.
[2020-06-23 08:31] LABS: Anisocytosis Slight; Basophils # (A) 0.1 k/uL (0-0.2); Basophils % (A) 1 %; Eosinophils # (A) 0.2 k/uL (0-0.7); Eosinophils % (A) 3 %; HCT 33.4 % (34.0-46.0); HGB 9.9 gm/dL (11.4-16.0); Hypochromasia Marked; Lymphocytes # (A) 1.2 k/uL (1.0-4.8); Lymphocytes % (A) 16 %; MCH 21.3 pg (25.0-35.0); MCHC 29.5 g/dL (31.0-37.0); MCV 72.3 fL (80.0-100.0); Microcytosis Moderate; Monocytes # (A) 0.5 k/uL (0-1.0); Monocytes % (A) 6 %; Neutrophils # (A) 5.7 k/uL (1.3-7.7); Neutrophils % (A) 73 %; Platelet Count 285 k/uL (150-450); RBC 4.62 m/uL (3.80-5.40); RDW 17.1 % (11.5-15.5); WBC 7.8 k/uL (3.8-10.6)
[2020-06-23 08:42] LABS: African American GFR (CKD) >90 (>60 ml/min/1.73 sqM); Anion Gap 3 mmol/L; Blood Urea Nitrogen 10 mg/dL (7-17); Calcium 8.4 mg/dL (8.4-10.2); Carbon Dioxide 31 mmol/L (22-30); Chloride 107 mmol/L (98-107); Glucose 157 mg/dL (74-99); Non-African American GFR(CKD) 89 (>60 ml/min/1.73 sqM); Potassium 4.3 mmol/L (3.5-5.1); Sodium 141 mmol/L (137-145)
[2020-06-23 08:58] LABS: T4, Free (Free Thyroxine) 1.21 ng/dL (0.78-2.19)
== END | disposition home or self-care (01) ==
LOC: RADUSWWP 07:49
PROVIDERS: ATTEND Family Medicine
DX: D64.9 Anemia, unspecified (principal); E03.9 Hypothyroidism, unspecified; E78.5 Hyperlipidemia, unspecified; R22.42 Localized swelling, mass and lump, left lower limb; M85.462 Solitary bone cyst, left tibia and fibula; Z88.3 Allergy status to other anti-infective agents; Z91.048 Other nonmedicinal substance allergy status; Z88.8 Allergy status to other drugs, medicaments and biological substances
CPT/HCPCS: 80048; 84439; 84443; 85025; 85379

== ENCOUNTER → 2020-06-26 | Outpatient (CLI) | payer MEDICARE ==
--- NOTE | 2020-06-26 11:42 | US ---
EXAMINATION TYPE: US venous doppler duplex LE DATE OF EXAM: 06/26/2020 10:00 AM COMPARISON: Prior ultrasound one year earlier CLINICAL HISTORY: LE; R79.1 D-DIMER. Elevated d dimer, patient on blood thinners SIDE PERFORMED: Bilateral TECHNIQUE: The lower extremity deep venous system is examined utilizing real time linear array sonog lottie with graded compression, doppler sonography and color-flow sonography. VESSELS IMAGED: External Iliac Vein (EIV) Common Femoral Vein Deep Femoral Vein Greater Saphenous Vein * Femoral Vein Popliteal Vein Small Saphenous Vein * Proximal Calf Veins (* superficial vessels) Right Leg: Appears negative for DVT Left Leg: Appears negative for DVT Grayscale, color doppler, spectral doppler imaging performed of the deep veins of the bilateral lower extremities. There is normal flow, compressibility, vascular waveforms. IMPRESSION: No ultrasound evidence for acute DVT in either lower extremity. No significant change fr om prior study.
== END | disposition home or self-care (01) ==
LOC: RADUSWWP 09:30
PROVIDERS: ATTEND Family Medicine
DX: R79.1 Abnormal coagulation profile (principal)
CPT/HCPCS: 93970

== ENCOUNTER 2020-10-07 00:31 | Emergency (ER) | payer MEDICARE ==
[2020-10-07] MEDS ORDERED: HYDROmorphone 1 MG/ML 1 ML SYRINGE IM STA (01:20)
[2020-10-07] MEDS ORDERED: DIAZEPAM 5 MG/ML 2 ML INJ IM ONE (01:21)
[2020-10-07] MEDS ORDERED: KETOROLAC 15 MG/ML 1 ML VIAL IM STA (01:21)
[2020-10-07] MEDS ORDERED: predniSONE 50 MG TAB PO STA (01:21)
[2020-10-07] MEDS ORDERED: HYDROcodone/APAP 5-325MG 1 EACH TAB PO STA (02:33)
--- NOTE | 2020-10-07 03:01 | ED ---
General Adult HPI - General Chief complaint: Back Pain/Injury Stated complaint: pain Time Seen by Provider: 10/07/20 01:12 Source: patient, EMS Mode of arrival: EMS Limitations: no limitations - History of Present Illness Initial comments: 69-year-old female patient presents to the emergency department today for evaluation of right low back and hip pain. Patient states the pain started a couple of days ago. States she saw the chiropractor today and seemed to be doing much better afterwards. States this evening her pain returned much worse than it was before. States the pain is radiating down the outside of her right leg down to about mid thigh. She denies any falls or injuries. States she has had some sciatica in the past this feels similar but her pain is worse. Denies numbness or tingling to the lower extremities. Denies saddle anesthesia or loss of bowel or bladder control. Denies any fever or chills. Denies abdominal pain, nausea, vomiting, constipation, or diarrhea. Denies any hematuria, dysuria, urinary frequency, urinary urgency. Denies any rash or skin changes over the area. States she did take ibuprofen prior to arrival without relief. States she does have a history of rheumatoid arthritis and is not currently taking any medications due to previous adverse reaction to methotrexate. Patient denies any recent cough, shortness of breath, chest pain, dizziness, weakness, headache, visual changes, or any other complaints. - Related Data Home Medications Medication Instructions Recorded Confirmed Levothyroxine Sodium [Synthroid] 75 mcg PO DAILY 04/13/17 04/04/20 Nitroglycerin Sl Tabs [Nitrostat] 0.4 mg SUBLINGUAL Q5M PRN 03/11/20 04/04/20 Folic Acid 1 mg PO DAILY@1300 04/04/20 04/04/20 Methotrexate/Pf [Rasuvo 25 mg/0.5 25 mg SQ TH 04/04/20 04/04/20 ml Autoinj] predniSONE See Taper PO DIRECTED 04/04/20 04/04/20 Previous Rx's Medication Instructions Recorded Atorvastatin [Lipitor] 80 mg PO HS #30 tab 12/09/18 Clopidogrel [Plavix] 75 mg PO DAILY #30 tab 12/09/18 Cyclobenzaprine [Flexeril] 10 mg PO TID #15 tab 10/07/20 predniSONE 50 mg PO DAILY #5 tablet 10/07/20 Allergies Allergy/AdvReac Type Severity Reaction Status Date / Time adhesive tape Allergy Rash/Hives Verified 10/07/20 00:42 iodine Allergy Anaphylaxis Verified 10/07/20 00:42 latex Allergy Rash/Hives Verified 10/07/20 00:42 sulfamethoxazole Allergy Unknown Verified 10/07/20 00:42 [From Bactrim] trimethoprim [From Bactrim] Allergy Unknown Verified 10/07/20 00:42 STEROIDS AdvReac Confusion Uncoded 10/07/20 00:42 Review of Systems ROS Statement: Those systems with pertinent positive or pertinent negative responses have been documented in the HPI. ROS Other: All systems not noted in ROS Statement are negative. Past Medical History Past Medical History: Coronary Artery Disease (CAD), Hyperlipidemia, Hypertension, Rheumatoid Arthritis (RA), Supraventricular Tachycardia (SVT), T hyroid Disorder Additional Past Medical History / Comment(s): CAD post NSTEMI with PCI of the RCA. History of Any Multi-Drug Resistant Organisms: MRSA, Other MDRO Date of last positivie culture/infection: 2006 MDRO Source:: Right leg Past Surgical History: Appendectomy, Section, Cholecystectomy, Heart Catheterization With Stent, Hysterectomy Past Anesthesia/Blood Transfusion Reactions: No Reported Reaction Date of Last Stent Placement:: 12/01 Past Psychological History: No Psychological Hx Reported Smoking Status: Current every day smoker Past Alcohol Use History: None Reported Past Drug Use History: None Reported - Past Family History Father Family Medical History: Cancer Additional Family Medical History / Comment(s): Father at age 51 from lung cancer with metastatic disease. Mother Family Medical History: Rheumatoid Arthritis (RA) Additional Family Medical History / Comment(s): Mother at age 77 from old age but had history of rheumatoid arthritis. Brother(s) Additional Family Medical History / Comment(s): Patient had 1 brother that from complications of agent orange. Daughter(s) Additional Family Medical History / Comment(s): Patient is 3 children with no major medical problems. Sister(s) Family Medical History: Renal Disease, Vascular Disorder General Exam Limitations: no limitations General appearance: alert, in no apparent distress, other (This is a well- developed, well-nourished elderly female patient in mild distress related to pain. Vital signs upon presentation are temperature 98.2F, pulse 84, respirations 20, blood pressure 184/100, pulse ox 95% on room air.) ENT exam: Present: normal exam, normal oropharynx, mucous membranes moist Respiratory exam: Present: normal lung sounds bilaterally. Absent: respiratory distress, wheezes, rales, rhonchi, stridor Cardiovascular Exam: Present: regular rate, normal rhythm, normal heart sounds. Absent: systolic murmur, diastolic murmur, rubs, gallop, clicks GI/Abdominal exam: Present: soft, normal bowel sounds. Absent: distended, tenderness, guarding, rebound, rigid Extremities exam: Present: normal inspection, full ROM, normal capillary refill, other (Skin to the right hip is pink, warm, dry. Cap refill less than 3 seconds. Pedal posttibial pulses are 2+. There is some mild bilateral edema surrounding the ankles.). Absent: tenderness, pedal edema, joint swelling, calf tenderness Back exam: Present: normal inspection. Absent: vertebral tenderness Neurological exam: Present: alert, oriented X3, CN II-XII intact Psychiatric exam: Present: normal affect, normal mood Skin exam: Present: warm, dry, intact, normal color. Absent: rash Course Vital Signs 10/07/20 00:37 Temperature 98.2 F Pulse Rate 84 Respiratory 20 Rate Blood Pressure 184/100 O2 Sat by Pulse 95 Oximetry Medical Decision Making - Medical Decision Making 69 year-old female patient presented to the emergency department today for evaluation of right low back pain radiation to the right hip. Pain started a couple of days ago. Physical examination was unremarkable. She is neurologically intact with no focal deficits. No concerning symptoms for cauda equina. X-ray was obtained and was negative. She was given medications for pain here. On reevaluation she is resting more comfortably but states her symptoms are improving. She'll be discharged follow up with the primary care physician for recheck in 1-2 days. She is given prescriptions for pain control. Return parameters were discussed in detail. She verbalizes understanding and agree with this plan. - Radiology Data Radiology results: report reviewed, image reviewed X-rays of the right hip and pelvis are obtained. Report was reviewed in its entirety. Impression by Dr. Correa shows no displaced fracture dislocation identified. Disposition Clinical Impression: Back pain, Lumbar radiculopathy Disposition: HOME SELF-CARE Condition: Good Instructions (If sedation given, give patient instructions): Acute Low Back Pain (ED), Lumbar Radiculopathy (ED) Additional Instructions: Follow-up with your primary care physician for recheck in 1-2 days. Return to the emergency department for any new, worsening, or concerning symptoms. Prescriptions: Cyclobenzaprine [Flexeril] 10 mg PO TID #15 tab predniSONE 50 mg PO DAILY #5 tablet Is patient prescribed a controlled substance at d/c from ED?: No Referrals: Jeramie Watts DO [Primary Care Provider] - 1-2 days Time of Disposition: 03:19
--- NOTE | 2020-10-07 03:06 | XR ---
EXAM: XR Pelvis, 1 or 2 Views CLINICAL HISTORY: ITS.REASON XR Reason: Rt. hip pain TECHNIQUE: Frontal view of the pelvis. COMPARISON: None FINDINGS: Bones/joints: No displaced fracture or dislocation identified. Degenerative changes of the hips and partially visualized lower lumbar spine. Osteopenia Soft tissues: Skin folds over the proximal femurs. IMPRESSION: No displaced fracture or dislocation identified. If there is persistent concern for acute injury, consider further evaluation with CT or MRI.
[2020-10-07] MEDS ORDERED: ACET/COD 300 MG/30 MG STARTER PACK 6 TAB BTL PO STA (03:19)
[2020-10-07] MEDS ORDERED: CYCLOBENZAPRINE 10MG STARTER 3 TAB BTL PO STA (03:19)
[2020-10-07 03:46] VITALS: BP 161/98; PULSE 91; RESP 18; TEMP 98
== END 2020-10-07 03:46 | disposition home or self-care (01) ==
LOC: EC 00:31
DX: M54.16 Radiculopathy, lumbar region (principal); E07.9 Disorder of thyroid, unspecified; M06.9 Rheumatoid arthritis, unspecified; I10 Essential (primary) hypertension; Z79.890 Hormone replacement therapy; Z79.899 Other long term (current) drug therapy; F17.200 Nicotine dependence, unspecified, uncomplicated; Z79.52 Long term (current) use of systemic steroids; Z88.1 Allergy status to other antibiotic agents; Z88.2 Allergy status to sulfonamides; Z88.8 Allergy status to other drugs, medicaments and biological substances; Z91.041 Radiographic dye allergy status; Z91.040 Latex allergy status; Z86.14 Personal history of Methicillin resistant Staphylococcus aureus infection; Z95.5 Presence of coronary angioplasty implant and graft; Z90.49 Acquired absence of other specified parts of digestive tract; Z90.710 Acquired absence of both cervix and uterus
CPT/HCPCS: 73502; 99284; 96372 ×3; J3360; J1170; J1885; J7512

== ENCOUNTER 2021-12-31 20:05 | Observation (INO) | payer MEDICARE ==
[2021-12-31] MEDS ORDERED: diphenhydrAMINE 50 MG/ML 1 ML VIAL IVP STA (20:29)
[2021-12-31] MEDS ORDERED: methylPREDNISolone SOD SUCCI 125 MG/2 ML VIAL IV STA (20:29)
[2021-12-31] MEDS ORDERED: FAMOTIDINE 20 MG/2 ML VIAL IV STA (20:29)
[2021-12-31 20:39] LABS: Basophils # (A) 0.1 k/uL (0-0.2); Basophils % (A) 1 %; Eosinophils # (A) 0.3 k/uL (0-0.7); Eosinophils % (A) 3 %; HCT 37.2 % (34.0-46.0); HGB 11.2 gm/dL (11.4-16.0); Hypochromasia Moderate; Lymphocytes # (A) 1.8 k/uL (1.0-4.8); Lymphocytes % (A) 20 %; MCV 80.2 fL (80.0-100.0); Mean Platelet Volume 8.1; Monocytes # (A) 0.7 k/uL (0-1.0); Monocytes % (A) 8 %; Neutrophils % (A) 67 %; Platelet Count 239 k/uL (150-450); RBC 4.64 m/uL (3.80-5.40); RDW 15.4 % (11.5-15.5); WBC 8.9 k/uL (3.8-10.6)
[2021-12-31 20:54] LABS: ALT 13 U/L (4-34); AST 23 U/L (14-36); African American GFR (CKD) >90 (>60 ml/min/1.73 sqM); Albumin 3.6 g/dL (3.5-5.0); Alkaline Phosphatase 89 U/L (38-126); Amylase 64 U/L (30-110); Anion Gap 3 mmol/L; Blood Urea Nitrogen 12 mg/dL (7-17); Calcium 8.5 mg/dL (8.4-10.2); Carbon Dioxide 31 mmol/L (22-30); Chloride 104 mmol/L (98-107); Glucose 116 mg/dL (74-99); Lipase 57 U/L (23-300); Magnesium 1.9 mg/dL (1.6-2.3); Non-African American GFR(CKD) >90 (>60 ml/min/1.73 sqM); Potassium 3.6 mmol/L (3.5-5.1); Sodium 138 mmol/L (137-145); Total Bilirubin 0.2 mg/dL (0.2-1.3); Total Protein 6.3 g/dL (6.3-8.2)
[2021-12-31 21:02] LABS: INR 0.9 (<1.2)
[2021-12-31 21:03] LABS: Partial Thromboplastin Time 21.6 sec (22.0-30.0)
--- NOTE | 2021-12-31 21:10 | ED ---
General Adult HPI - General Chief complaint: Chest Pain Stated complaint: Chest pain Time Seen by Provider: 12/31/21 20:06 Source: patient, EMS, RN notes reviewed, old records reviewed Mode of arrival: EMS - History of Present Illness Initial comments: 71-year-old female presenting with sudden onset chest pain which began just prior to arrival. This was left upper chest pain radiating into her back. Patient is a current smoker. She was noted to be hypertensive by EMS. She is given aspirin and nitroglycerin during transport. Her pain is resolved at the time my evaluation. This was not associated with eating. There is no vomiting. No abdominal pain. She did note some lower extremity edema over the past day. - Related Data Home Medications Medication Instructions Recorded Confirmed Levothyroxine Sodium [Synthroid] 75 mcg PO DAILY 04/13/17 12/31/21 Aspirin EC [Ecotrin Low Dose] 81 mg PO DAILY 12/31/21 12/31/21 Allergies Allergy/AdvReac Type Severity Reaction Status Date / Time adhesive tape Allergy Rash/Hives Verified 12/31/21 21:46 iodine Allergy Anaphylaxis Verified 12/31/21 21:46 latex Allergy Rash/Hives Verified 12/31/21 21:46 sulfamethoxazole Allergy Unknown Verified 12/31/21 21:46 [From Bactrim] trimethoprim [From Bactrim] Allergy Unknown Verified 12/31/21 21:46 STEROIDS AdvReac Confusion Uncoded 10/07/20 00:42 Review of Systems ROS Statement: Those systems with pertinent positive or pertinent negative responses have been documented in the HPI. ROS Other: All systems not noted in ROS Statement are negative. Past Medical History Past Medical History: Coronary Artery Disease (CAD), Hyperlipidemia, Hypertension, Rheumatoid Arthritis (RA), Supraventricular Tachycardia (SVT), Thyroid Disorder Additional Past Medical History / Comment(s): CAD post NSTEMI with PCI of the RCA. History of Any Multi-Drug Resistant Organisms: MRSA, Other MDRO Date of last positivie culture/infection: 2006 MDRO Source:: Right leg Past Surgical History: Appendectomy, Section, Cholecystectomy, Heart Catheterization With Stent, Hysterectomy Past Anesthesia/Blood Transfusion Reactions: No Reported Reaction Date of Last Stent Placement:: 12/01 Past Psychological History: No Psychological Hx Reported Smoking Status: Current every day smoker Past Alcohol Use History: None Reported Past Drug Use History: None Reported - Past Family History Father Family Medical History: Cancer Additional Family Medical History / Comment(s): Father at age 51 from lung cancer with metastatic disease. Mother Family Medical History: Rheumatoid Arthritis (RA) Additional Family Medical History / Comment(s): Mother at age 77 from old age but had history of rheumatoid arthritis. Brother(s) Additional Family Medical History / Comment(s): Patient had 1 brother that from complications of agent orange. Daughter(s) Additional Family Medical History / Comment(s): Patient is 3 children with no major medical problems. Sister(s) Family Medical History: Renal Disease, Vascular Disorder General Exam General appearance: alert, in no apparent distress Head exam: Present: atraumatic, normocephalic Eye exam: Present: normal appearance, PERRL ENT exam: Present: normal exam Neck exam: Present: normal inspection. Absent: tenderness, meningismus Respiratory exam: Present: normal lung sounds bilaterally. Absent: respiratory distress, wheezes Cardiovascular Exam: Present: regular rate, normal rhythm GI/Abdominal exam: Present: soft. Absent: distended, tenderness, guarding Extremities exam: Present: normal capillary refill, pedal edema, other (Bilateral radial pulses symmetric) Neurological exam: Present: alert, oriented X3, CN II-XII intact. Absent: motor sensory deficit Psychiatric exam: Present: normal affect, normal mood Skin exam: Present: warm, dry, intact. Absent: cyanosis, diaphoretic Course Vital Signs 12/31/21 20:06 Temperature 98.7 F Pulse Rate 75 Respiratory 16 Rate Blood Pressure 168/79 O2 Sat by Pulse 94 L Oximetry EKG Findings - EKG Comments: EKG Findings:: Sinus rhythm ST segment depression and T-wave abnormality aVL and the precordial precordial leads no ST segment elevation this is similar compared to previous EKG in March 2020. Medical Decision Making - Medical Decision Making 71-year-old female presenting for evaluation of severe anterior chest pain radiating to the back. She's hypertensive upon arrival. There is concern for both ACS and aortic dissection. EKG showing sinus rhythm with T-wave inversion which is similar compared to prior. Chest x-ray is negative for acute findings. She's taken to CT after pretreatment for angiogram of the aorta. This is negative for dissection. No acute findings. She has a normal laboratory testing including negative initial troponin. Given her risk factors and prior history she will be kept in observation for serial cardiac enzymes, telemetry, cardiology consultation. Case discussed with Dr. Emery who will admit. - Lab Data Result diagrams: 12/31/21 20:23 12/31/21 20:23 Lab Results 12/31/21 12/31/21 12/31/21 Range/Units 20:23 20:23 20:23 WBC 8.9 (3.8-10.6) k/uL RBC 4.64 (3.80-5.40) m/uL Hgb 11.2 L (11.4-16.0) gm/dL Hct 37.2 (34.0-46.0) % MCV 80.2 (80.0-100.0) fL MCH 24.0 L (25.0-35.0) pg MCHC 30.0 L (31.0-37.0) g/dL RDW 15.4 (11.5-15.5) % Plt Count 239 (150-450) k/uL MPV 8.1 Neutrophils % 67 % Lymphocytes % 20 % Monocytes % 8 % Eosinophils % 3 % Basophils % 1 % Neutrophils # 6.0 (1.3-7.7) k/uL Lymphocytes # 1.8 (1.0-4.8) k/uL Monocytes # 0.7 (0-1.0) k/uL Eosinophils # 0.3 (0-0.7) k/uL Basophils # 0.1 (0-0.2) k/uL Hypochromasia Moderate PT 10.0 (9.0-12.0) sec INR 0.9 (<1.2) APTT 21.6 L (22.0-30.0) sec Sodium 138 (137-145) mmol/L Potassium 3.6 (3.5-5.1) mmol/L Chloride 104 (98-107) mmol/L Carbon Dioxide 31 H (22-30) mmol/L Anion Gap 3 mmol/L BUN 12 (7-17) mg/dL Creatinine 0.63 (0.52-1.04) mg/dL Est GFR (CKD-EPI)AfAm >90 (>60 ml/min/1.73 sqM) Est GFR (CKD-EPI)NonAf >90 (>60 ml/min/1.73 sqM) Glucose 116 H (74-99) mg/dL Calcium 8.5 (8.4-10.2) mg/dL Magnesium 1.9 (1.6-2.3) mg/dL Total Bilirubin 0.2 (0.2-1.3) mg/dL AST 23 (14-36) U/L ALT 13 (4-34) U/L Alkaline Phosphatase 89 (38-126) U/L Troponin I (0.000-0.034) ng/mL NT-Pro-B Natriuret Pep pg/mL Total Protein 6.3 (6.3-8.2) g/dL Albumin 3.6 (3.5-5.0) g/dL Amylase 64 (30-110) U/L Lipase 57 (23-300) U/L 12/31/21 12/31/21 Range/Units 20:23 20:23 WBC (3.8-10.6) k/uL RBC (3.80-5.40) m/uL Hgb (11.4-16.0) gm/dL Hct (34.0-46.0) % MCV (80.0-100.0) fL MCH (25.0-35.0) pg MCHC (31.0-37.0) g/dL RDW (11.5-15.5) % Plt Count (150-450) k/uL MPV Neutrophils % % Lymphocytes % % Monocytes % % Eosinophils % % Basophils % % Neutrophils # (1.3-7.7) k/uL Lymphocytes # (1.0-4.8) k/uL Monocytes # (0-1.0) k/uL Eosinophils # (0-0.7) k/uL Basophils # (0-0.2) k/uL Hypochromasia PT (9.0-12.0) sec INR (<1.2) APTT (22.0-30.0) sec Sodium (137-145) mmol/L Potassium (3.5-5.1) mmol/L Chloride (98-107) mmol/L Carbon Dioxide (22-30) mmol/L Anion Gap mmol/L BUN (7-17) mg/dL Creatinine (0.52-1.04) mg/dL Est GFR (CKD-EPI)AfAm (>60 ml/min/1.73 sqM) Est GFR (CKD-EPI)NonAf (>60 ml/min/1.73 sqM) Glucose (74-99) mg/dL Calcium (8.4-10.2) mg/dL Magnesium (1.6-2.3) mg/dL Total Bilirubin (0.2-1.3) mg/dL AST (14-36) U/L ALT (4-34) U/L Alkaline Phosphatase (38-126) U/L Troponin I <0.012 (0.000-0.034) ng/mL NT-Pro-B Natriuret Pep 389 pg/mL Total Protein (6.3-8.2) g/dL Albumin (3.5-5.0) g/dL Amylase (30-110) U/L Lipase (23-300) U/L Disposition Clinical Impression: Chest pain Disposition: ADMITTED IP TO THIS HOSP Condition: Stable Is patient prescribed a controlled substance at d/c from ED?: No Referrals: Jeramie Watts DO [Primary Care Provider] - 1-2 days Time of Disposition: 22:30
--- NOTE | 2021-12-31 21:28 | XR ---
EXAMINATION TYPE: XR chest 1V portable DATE OF EXAM: 12/31/2021 8:48 PM COMPARISON: Chest radiographs from 04/06/2022 TECHNIQUE: XR chest 1V portable Frontal view of the chest. CLINICAL INDICATION:Female, 71 years old with history of chest pain; FINDINGS: Lungs/Pleura: Basilar atelectasis. There is flattening of the diaphragm with increased lucency of the lungs. No evidence of pneumothorax, pleural effusion or focal consolidation. Pulmonary vascularity: Unremarkable. Heart/mediastinum: Cardiomediastinal silhouette is prominent in size. Musculoskeletal: No acute osseous pathology. IMPRESSION: 1. Basilar atelectasis without acute cardiopulmonary disease process. 2. COPD changes.
--- NOTE | 2021-12-31 22:16 | CT ---
EXAMINATION TYPE: CT angio thor/abd pel aorta CT DLP: 1468.6 mGycm, Automated exposure control for dose reduction was used. DATE OF EXAM: 12/31/2021 9:48 PM COMPARISON: 04/06/2020. CLINICAL INDICATION:Female, 71 years old with history of cp/back pain/htn, cp/back pain TECHNIQUE: Dissection protocol: Multiple axial CT images of the chest, abdomen, and pelvis were obtai rafael prior and to the administration of IV contrast. 3-D reformats and maximum intensity projection fo rmat were performed on a separate workstation. Then the abdomen was scanned after administration of 8 0 cc of Isovue 370 IV contrast. FINDINGS: ARTERIAL VASCULATURE: The thoracic aorta is normal in course and caliber. There is no evidence of aor tic dissection, aneurysm or acute aortic injury. Great arch vessels patent and normal in course and c aliber. Scattered atherosclerotic disease of the arterial vasculature. Visualized portions of the raul iac axis, superior mesenteric artery, renal arteries, and inferior mesenteric artery are patent. Ther e is one renal artery bilaterally. PULMONARY ARTERIAL VASCULATURE: Increase in size measuring up to 37 mm. VENOUS SYSTEM: Unremarkable. Lungs/pleura: No evidence for focal consolidation, pneumothorax or pleural effusion. There is streaky subsegmental atelectasis in the lung bases. Heart: Heart is enlarged for size. There is coronary artery atherosclerosis present. Mediastinum: No gross evidence of adenopathy. Lower Neck: No significant findings. Abdomen: Liver: Unremarkable. Gallbladder and Bile ducts: Unremarkable. Pancreas: Unremarkable. Spleen: Unremarkable. Adrenal glands: Unremarkable. Kidneys and Ureters: Unremarkable. No hydronephrosis. Stomach and Bowel: Unremarkable. No evidence of bowel obstruction. Few scattered clonic diverticula present. Peritoneum: No evidence of pneumoperitoneum, free fluid, or adenopathy. Bladder: Unremarkable. Reproductive: Unremarkable. Abdominal wall/soft tissues: Unremarkable. Musculoskeletal: The osseous structures appear intact. Right hip prosthesis which has streak artifact limits evaluation the pelvis. Mild multilevel disc degeneration changes and facet joint arthropathy most pronounced in the lower lumbar spine. IMPRESSION: 1. No evidence for thoracic aortic dissection or evidence for aortic aneurysm. No definitive finding to explain the patient's back pain. 2. Findings suggestive of pulmonary hypertension. 3. Moderate scattered atherosclerosis. 4. Colonic diverticulosis.
[2021-12-31] MEDS ORDERED: NALOXONE 0.4 MG/ML 1 ML VIAL IV PRN (22:26)
[2021-12-31] MEDS ORDERED: MORPHINE SULFATE 4 MG/ML SYRINGE IV PRN (22:26)
[2021-12-31] MEDS ORDERED: ACETAMINOPHEN TAB 325 MG TAB PO PRN (22:26)
[2021-12-31] MEDS ORDERED: LORazepam 2 MG/ML INJ IV STA (22:43)
[2022-01-01 07:55] VITALS: RESP 16
[2022-01-01] MEDS ORDERED: FAMOTIDINE 20 MG/2 ML VIAL IV ONE (08:32)
[2022-01-01] MEDS ORDERED: diphenhydrAMINE 50 MG/ML 1 ML VIAL IVP ONE (08:32)
[2022-01-01] MEDS ORDERED: CAFFEINE CITRATE 60 MG/3 ML VIAL IV PRN (08:37)
[2022-01-01] MEDS ORDERED: AMINOPHYLLINE 500 MG/20 ML VIAL IV PRN (08:37)
[2022-01-01] MEDS ORDERED: REGADENOSON 0.4 MG/5 ML SYRINGE IV PRN (08:37)
[2022-01-01] MEDS ORDERED: lisinopriL 5 MG TAB PO SCH (11:15)
--- NOTE | 2022-01-01 11:28 | P.CRDCN ---
History of Present Illness History of present illness: HISTORY OF PRESENTING ILLNESS This is a pleasant 71-year-old female past medical history significant for coronary artery disease status post PCI to the RCA in 2019, moderate nonobstructive disease involving the mid LAD, hypertension, dyslipidemia, hypothyroidism, chronic nicotine dependence. she follows in the office with Dr. Lubin. We have been asked to see in consultation for chest pain. Patient presents emergency department with sudden onset chest pain in the center of her chest. 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 She had sudden onset chest discomfort. Located midstenal and left side of her chest. She had radiation to her back. She states she sat down, drank some water. Took tums without any relief. She had associated shortness of breath. Denies any specific aggravating or alleviating factors. This episode lasted 10 minutes. She took 4 baby aspirins. She states her symptoms are similar to prior stent placement. She denies any diaphoresis, nausea, vomiting, palpitations, syncope or near syncope. She states her activity is limited. She is a current every day smoker. She followed up with Dr. Lubin and planned for Lexiscan stress test scheduled in January. DIAGNOSTICS EKG reveals sinus rhythm, heart rate 72, significant T wave inversions in anterior and lateral leads, ST depression in V4, V5. These are not new. Prior EKG 03/2020 with similar findings. Last Cardiac Catheterization 11/2018 revealed 70-80% stenosis involving the mid RCA, moderate disease in mid LAD, circumflex free of significant stenosis. Patient underwent PCI to the RCA Telemetry tracings indicate sinus mechanism with heart rate in the 60s and 70s Thoracic CT revealed no evidence of thoracic aortic dissection or evidence of aortic aneurysm. Pulmonary hypertension. Moderate scattered atherosclerosis. Chest xray Basilar atelectasis without acute cardiopulmonary disease process. Laboratory reviewed, troponin x 3, Sodium 138, K 3.6, BUN 3, sCr 0.63, Mag 1.9, pro BNP 389, Current home medications include synthroid and aspirin Most recent Stress test- [facility] in the office 11/15/2020 was negative for reversible ischemia Most recent echocardiogram 12/11/2020 revealed EF 55%, mild LVH, mild mitral regurgitation, mild tricuspid regurgitation, increased pulmonary artery systolic pressure 50 mmHg REVIEW OF SYSTEMS At the time of my exam: CONSTITUTIONAL: Denies fever or chills. CARDIOVASCULAR: Denies chest pain, shortness of breath, orthopnea, PND or palpitations. RESPIRATORY: Denies cough. GASTROINTESTINAL: Denies abdominal pain, diarrhea, constipation, nausea or v omiting. MUSCULOSKELETAL: Denies myalgias. NEUROLOGIC: Denies numbness, tingling, headache or weakness. ENDOCRINE: Denies fatigue, weight change, polydipsia or polyurina. GENITOURINARY: Denies burning, hematuria or urgency with micturation. HEMATOLOGIC: Denies history of anemia or bleeding. PHYSICAL EXAMINATION Blood pressure 146/78 HR 77, afebrile HR 91% on room air CONSTITUTIONAL: No apparent distress. HEENT: Head is normocephalic. Pupils are equal, round. Sclerae anicteric. Mucous membranes of the mouth are moist. No JVD. No carotid bruit. CHEST EXAMINATION: Lungs are clear to auscultation. No chest wall tenderness is noted on palpation or with deep breathing. HEART EXAMINATION: Regular rate and rhythm. S1, S2 heard. No murmurs, gallops or rub. ABDOMEN: Soft, nontender. Positive bowel sounds. EXTREMITIES: 2+ peripheral pulses, no lower extremity edema and no calf tenderness. SKIN: warm, dry NEUROLOGIC EXAMINATION: Patient is awake, alert and oriented x3. ASSESSMENT Chest pain, atypical, acute coronary syndrome has been ruled out Coronary artery disease status post PCI to the RCA in 2019, moderate nonobstructive disease involving the mid LAD Hypertension Dyslipidemia Hypothyroidism Chronic nicotine dependence PLAN An acute coronary event has been ruled out with no EKG evidence of ischemia and negative cardiac enzymes. Obtain 2D echocardiogram and doppler study to assess cardiac structure and function. Perform Lexiscan stress test to assess for stress induced cardiac ischemia. If abnormal will consider coronary angiography. Start Lisinopril Smoking cessation discussed and highly recommended. If echocardiogram with no acute findings, Lexiscan stress test is negative, ok to discharge from a cardiology perspective, follow up with Dr. Lubin outpatient. Appointment rescheduled for 01/05/2022 Thank you kindly for this consultation. Nurse practitioner note has been reviewed by physician. Signing provider agrees with the documented findings, assessment, and plan of care. Past Medical History Past Medical History: Coronary Artery Disease (CAD), Hyperlipidemia, Hypertension, Rheumatoid Arthritis (RA), Supraventricular Tachycardia (SVT), Thyroid Disorder Additional Past Medical History / Comment(s): CAD post NSTEMI with PCI of the RCA. History of Any Multi-Drug Resistant Organisms: MRSA, Other MDRO Date of last positivie culture/infection: 2006 MDRO Source:: Right leg Past Surgical History: Appendectomy, Section, Cholecystectomy, Heart Catheterization With Stent, Hysterectomy Past Anesthesia/Blood Transfusion Reactions: No Reported Reaction Date of Last Stent Placement:: 12/01 Past Psychological History: No Psychological Hx Reported Smoking Status: Current every day smoker Past Alcohol Use History: None Reported Past Drug Use History: None Reported - Past Family History Father Family Medical History: Cancer Additional Family Medical History / Comment(s): Father at age 51 from lung cancer with metastatic disease. Mother Family Medical History: Rheumatoid Arthritis (RA) Additional Family Medical History / Comment(s): Mother at age 77 from old age but had history of rheumatoid arthritis. Brother(s) Additional Family Medical History / Comment(s): Patient had 1 brother that from complications of agent orange. Daughter(s) Additional Family Medical History / Comment(s): Patient is 3 children with no major medical problems. Sister(s) Family Medical History: Renal Disease, Vascular Disorder Medications and Allergies Home Medications Medication Instructions Recorded Confirmed Type Levothyroxine Sodium [Synthroid] 75 mcg PO DAILY 04/13/17 12/31/21 History Aspirin EC [Ecotrin Low Dose] 81 mg PO DAILY 12/31/21 12/31/21 History Allergies Allergy/AdvReac Type Severity Reaction Status Date / Time adhesive tape Allergy Rash/Hives Verified 12/31/21 21:46 iodine Allergy Anaphylaxis Verified 12/31/21 21:46 latex Allergy Rash/Hives Verified 12/31/21 21:46 sulfamethoxazole Allergy Unknown Verified 12/31/21 21:46 [From Bactrim] trimethoprim [From Bactrim] Allergy Unknown Verified 12/31/21 21:46 STEROIDS AdvReac Confusion Uncoded 10/07/20 00:42 Physical Exam Vitals: Vital Signs Temp Pulse Pulse Resp BP BP Pulse Ox 01/01/22 07:54 97.9 F 68 16 161/79 95 01/01/22 03:57 96.9 F L 77 18 146/78 91 L 01/01/22 00:00 85 18 160/86 95 12/31/21 20:06 98.7 F 75 16 168/79 94 L Intake and Output 12/31/21 01/01/22 01/01/22 22:59 06:59 14:59 Other: Weight 75.75 kg Results 12/31/21 20:23 12/31/21 20:23 Cardiac Enzymes 12/31/21 12/31/21 12/31/21 Range/Units 20:23 20:23 23:35 AST 23 (14-36) U/L Troponin I <0.012 0.014 (0.000-0.034) ng/mL 01/01/22 Range/Units 03:57 AST (14-36) U/L Troponin I 0.013 (0.000-0.034) ng/mL Coagulation 12/31/21 Range/Units 20:23 PT 10.0 (9.0-12.0) sec APTT 21.6 L (22.0-30.0) sec CBC 12/31/21 Range/Units 20:23 WBC 8.9 (3.8-10.6) k/uL RBC 4.64 (3.80-5.40) m/uL Hgb 11.2 L (11.4-16.0) gm/dL Hct 37.2 (34.0-46.0) % Plt Count 239 (150-450) k/uL Comprehensive Metabolic Panel 12/31/21 Range/Units 20:23 Sodium 138 (137-145) mmol/L Potassium 3.6 (3.5-5.1) mmol/L Chloride 104 (98-107) mmol/L Carbon Dioxide 31 H (22-30) mmol/L BUN 12 (7-17) mg/dL Creatinine 0.63 (0.52-1.04) mg/dL Glucose 116 H (74-99) mg/dL Calcium 8.5 (8.4-10.2) mg/dL AST 23 (14-36) U/L ALT 13 (4-34) U/L Alkaline Phosphatase 89 (38-126) U/L Total Protein 6.3 (6.3-8.2) g/dL Albumin 3.6 (3.5-5.0) g/dL Current Medications Generic Name Dose Route Start Last Admin Trade Name Freq PRN Reason Stop Dose Admin Acetaminophen 650 mg 12/31/21 22:26 Acetaminophen Tab 325 Mg Tab PO Q6HR PRN Mild Pain or Fever > 100.5 Diphenhydramine HCl 50 mg 01/01/22 08:32 Diphenhydramine 50 Mg/Ml 1 Ml Vial IVP 01/01/22 08:33 ONCE ONE Famotidine 20 mg 01/01/22 08:32 Famotidine 20 Mg/2 Ml Vial IV 01/01/22 08:33 ONCE ONE Morphine Sulfate 4 mg 12/31/21 22:26 Morphine Sulfate 4 Mg/Ml Syringe IV Q4HR PRN Severe Pain Naloxone HCl 0.2 mg 12/31/21 22:26 Naloxone 0.4 Mg/Ml 1 Ml Vial IV Q2M PRN Opioid Reversal Intake and Output 12/31/21 01/01/22 01/01/22 22:59 06:59 14:59 Other: Weight 75.75 kg 12/31/21 20:23 12/31/21 20:23
--- NOTE | 2022-01-01 12:11 | P.HPIM ---
History of Present Illness H&P Date: 01/01/22 HISTORY AND PHYSICAL AND DISCHARGE SUMMARY: HISTORY OF PRESENT ILLNESS This is a 71-year-old female patient of Dr. Watts and Dr. Anne Lubin with past medical history of hypertension, hyperlipidemia, nicotine dependence, rheumatoid arthritis, hypothyroidism and COPD. In November 2018 she underwent a cardiac catheterization which revealed severe single-vessel coronary artery disease involving the right coronary artery and the patient underwent stenting of that vessel. Patient states that she developed chest pain which started in the middle part of her chest gradually went into her back and took her breath away. She took 4 baby aspirin at home. She states that the pain went away on its own. Patient came into [facility] emergency center for evaluation and found to be afebrile, heart rate 75, blood pressure 168/79, pulse ox 94% on room air. EKG sinus rhythm with T-wave inversions in V leads. WBC 8.9, hemoglobin 11.2, platelet count 239. INR 0.9. CO2 31 otherwise electrolytes and renal function normal. Blood sugar 116. Magnesium 1.9. Liver function test normal. Troponins negative on 3 draws. ProBNP 389. Chest x-ray reveals basilar atelectasis without acute cardio pulmonary disease. COPD changes. Thoracic abdominal pelvic CT angiogram revealed no evidence of thoracic aortic dissection or evidence of aortic aneurysm. No definitive finding to explain patient's back pain. Findings suggestive of pulmonary hypertension. Moderate scattered atherosclerosis. Colonic diverticulosis. Patient is seen today on the observation unit. She has been seen by cardiology with plan for stress Lexiscan Cardiolite today. We have ordered a CT angiogram of the chest to rule out PE and radiology will reread thoracic abdominal pelvic CT angiogram at an addendum later today. Addendum to CT angiogram of the thoracic abdominal pelvic aorta was negative for pulmonary embolism. Lexiscan stress test was negative for reversible ischemia. Echocardiogram revealed EF of 55-60%, mild to moderate mitral regurgitation, mild tricuspid regurgitation. Patient was discharged home in stable condition. REVIEW OF SYSTEMS Constitutional: No fever, no chills, no night sweats. No weight change. No weakness, fatigue or lethargy. No daytime sleepiness. EENT: No headache. No blurred vision or double vision, no loss of vision. No loss of Hearing, no ringing in the ears, no dizziness. No nasal drainage or congestion. No epistaxis. No sore throat. Lungs: No shortness of breath, cough, no sputum production. No wheezing. Cardiovascular: Reported chest pain, no lower extremity edema. No palpitations. No paroxysmal nocturnal dyspnea. No orthopnea. No lightheadedness or dizziness. No syncopal episodes. Abdominal: No abdominal pain. No nausea, vomiting. No diarrhea. No constipation. No bloody or tarry stools. No loss of appetite. Genitourinary: No dysuria, increased frequency, urgency. No urinary retention. Musculoskeletal: No myalgias. No muscle weakness, no gait dysfunction, no frequent falls. No back pain. No neck pain. Integumentary: No wounds, no lesions. No rash or pruritus. No unusual bruising. No change in hair or nails. Neurologic: No aphasia. No facial droop. No change in mentation. No head injury. No headache. No paralysis. No paresthesia. Psychiatric: No depression. No anxiety. No mood swings. Endocrine: No abnormal blood sugars. No weight change. No excessive sweating or thirst. No cold intolerance. SOCIAL HISTORY Patient smoked half a pack per day for 45 years or more and currently smoking 3- 4 cigarettes per day. She denies any marijuana or illicit drug use. Occasional alcohol use. Patient lives at home with her . FAMILY HISTORY Father at age 51 from lung cancer with metastatic disease. Mother at age 77 from old age but had history of rheumatoid arthritis. Patient had 1 brother that from complications of agent orange. Patient is 3 children with no major medical problems. She has a sister with history of Renal Disease, Vascular Disorder PHYSICAL EXAMINATION Gen: This is a 71-year-old female. She is resting in bed appears to be comfortable and in no acute distress. HEENT: Head is atraumatic, normocephalic. Pupils equal, round. Sclerae is anicteric. NECK: Supple. No JVD. No lymphadenopathy. No thyromegaly. LUNGS: Clear to auscultation. No wheezes or rhonchi. No intercostal retractions. HEART: Regular rate and rhythm. No murmur. ABDOMEN: Soft. Bowel sounds are present. No masses. No tenderness. EXTREMITIES: No pedal edema. No calf tenderness. NEUROLOGICAL: Patient is awake, alert and oriented x3. Cranial nerves 2 through 12 are grossly intact. ASSESSMENT AND PLAN 1. Chest pain with radiation to the back. Troponins negative 3. Cardiology consult appreciated. Stress echocardiogram.. 2. CAD post-PCI of the RCA. Continue aspirin 81 mg once every day. 3. Hypertension and hypertensive cardiovascular disease. Continue lisinopril 5 mg daily. 4. Hyperlipidemia. 5. Hypothyroidism. Continue Synthroid 75 g orally once every day. 6. IBS. Patient was off Lomotil. 7. Tobacco use and dependence. Patient has cut down to 3-4 cigarettes per day. 8. DVT prophylaxis. Heparin 5000 units subcutaneously every 8 hours. 9. GI prophylaxis. Continue patient on PPI 10. Observation. 11. Full code. DISCHARGE PLAN Home DISCHARGE MEDICATIONS Levothyroxine Sodium [Synthroid] 75 mcg PO DAILY 04/13/17 [History] Aspirin EC [Ecotrin Low Dose] 81 mg PO DAILY 12/31/21 [History] lisinopriL [Zestril] 5 mg PO DAILY #30 tab 01/01/22 [Rx] Impression and plan of care have been directed as dictated by the signing physician. Lore Wiggins nurse practitioner acting as scribe for signing physician. Past Medical History Past Medical History: Coronary Artery Disease (CAD), Hyperlipidemia, Hypertension, Rheumatoid Arthritis (RA), Supraventricular Tachycardia (SVT), Thyroid Disorder Additional Past Medical History / Comment(s): CAD post NSTEMI with PCI of the RCA. History of Any Multi-Drug Resistant Organisms: MRSA, Other MDRO Date of last positivie culture/infection: 2006 MDRO Source:: Right leg Past Surgical History: Appendectomy, Section, Cholecystectomy, Heart Ca theterization With Stent, Hysterectomy Past Anesthesia/Blood Transfusion Reactions: No Reported Reaction Date of Last Stent Placement:: 12/01 Past Psychological History: No Psychological Hx Reported Smoking Status: Current every day smoker Past Alcohol Use History: None Reported Past Drug Use History: None Reported - Past Family History Father Family Medical History: Cancer Additional Family Medical History / Comment(s): Father at age 51 from lung cancer with metastatic disease. Mother Family Medical History: Rheumatoid Arthritis (RA) Additional Family Medical History / Comment(s): Mother at age 77 from old age but had history of rheumatoid arthritis. Brother(s) Additional Family Medical History / Comment(s): Patient had 1 brother that from complications of agent orange. Daughter(s) Additional Family Medical History / Comment(s): Patient is 3 children with no major medical problems. Sister(s) Family Medical History: Renal Disease, Vascular Disorder Medications and Allergies Home Medications Medication Instructions Recorded Confirmed Type Levothyroxine Sodium [Synthroid] 75 mcg PO DAILY 04/13/17 12/31/21 History Aspirin EC [Ecotrin Low Dose] 81 mg PO DAILY 12/31/21 12/31/21 History lisinopriL [Zestril] 5 mg PO DAILY #30 tab 01/01/22 Rx Allergies Allergy/AdvReac Type Severity Reaction Status Date / Time adhesive tape Allergy Rash/Hives Verified 12/31/21 21:46 iodine Allergy Anaphylaxis Verified 12/31/21 21:46 latex Allergy Rash/Hives Verified 12/31/21 21:46 sulfamethoxazole Allergy Unknown Verified 12/31/21 21:46 [From Bactrim] trimethoprim [From Bactrim] Allergy Unknown Verified 12/31/21 21:46 STEROIDS AdvReac Confusion Uncoded 10/07/20 00:42 Physical Exam Vitals: Vital Signs Temp Pulse Resp BP Pulse Ox 01/01/22 03:57 96.9 F L 77 18 146/78 91 L 01/01/22 00:00 85 18 160/86 95 12/31/21 20:06 98.7 F 75 16 168/79 94 L Intake and Output 12/31/21 01/01/22 01/01/22 22:59 06:59 14:59 Other: Weight 75.75 kg Results CBC & Chem 7: 12/31/21 20:23 12/31/21 20:23 Labs: Abnormal Lab Results - Last 24 Hours (Table) 12/31/21 12/31/21 12/31/21 Range/Units 20:23 20:23 20:23 Hgb 11.2 L (11.4-16.0) gm/dL MCH 24.0 L (25.0-35.0) pg MCHC 30.0 L (31.0-37.0) g/dL APTT 21.6 L (22.0-30.0) sec Carbon Dioxide 31 H (22-30) mmol/L Glucose 116 H (74-99) mg/dL
--- NOTE | 2022-01-01 13:04 | NM ---
EXAMINATION TYPE: NM stress lexiscan cardiolite DATE OF EXAM: 01/01/2022 COMPARISON: NONE HISTORY: Chest pain TECHNIQUE: After the intravenous administration of 9.5 mCi Tc 99m Sestamibi - Cardiolite resting SPE CT images acquired 95 minutes post injection. The patient received 0.4mg Lexiscan, 25.7 mCi Tc 99m Sestamibi - Stress images obtained [address] injection FINDINGS: Review of stress and rest SPECT images demonstrates no distinct perfusion abnormality. Gated analysi s shows normal wall motion with an estimated left ventricular ejection fraction of 53 %. IMPRESSION: No scintigraphic evidence for reversible ischemia.
[2022-01-01 14:35] VITALS: BP 131/73; PULSE 78; TEMP 98.2
--- NOTE | 2022-01-01 18:15 | CA ---
Lexiscan Nuclear Stress Test Report Name: Soila Mccullough Exam Date: 01/01/2022 11:31 Exam Location: [facility] Stress Ht (in): 67 Wt (lb): 167 BSA: 1.87 Ordering Phys: Evelin Huynh Referring Phys: ERMELINDA,, Technologist: Chris Mcclelland Age: 71 Gender: F : 1950 Procedure CPT: Indications: Reflex order-Stress test ICD-10 Codes: Patient History: CP, DIFFICULTY IN BREATHING, HX OF TOBBACO USE 1/ PPD X 50 YEARS, Hx of RI, PRIOR CATH WITH ONE STENT, COPD Medications: LEVOTHYROXINE, ASA 81 mg Meds past 24 hrs: Pretest Chest Pain: STRESS TEST Lexiscan Protocol Exercise Duration (min:sec): 01:[address] Depressions (mm): Angina Score: Ellington Score: Resting HR (bpm): 73 Peak HR (bpm): 95 Resting BP (mmHg): 153 / 83 Peak BP (mmHg): 153 / 83 MPHR: 149 Target HR: 127 % MPHR: 64 METS: 1.0 Total Dose: Peak Dose: Atropine: Double Product: 95091 BP Response: Stress Termination: Completion of Infusion Stress Symptoms: DIFFICULTY IN BREATHING Stress Summary: ECG ANALYSIS Resting ECG: Stress ECG: CONCLUSIONS Nondiagnostic electrocardiogram stress testing and response to Lexiscan Please follow-up on the Cardiolite portion on a separate report Dr. Hair Encarnacion MD (Electronically Signed) Final Date: 01 Jan 2022 18:14
[2022-01-01] MEDS ORDERED: HEPARIN SODIUM,PORCINE/PF 5,000 UNIT/0.5 ML SYRINGE SQ SCH (21:00)
[2022-01-02] MEDS ORDERED: LEVOTHYROXINE 75 MCG TAB PO SCH (06:30)
[2022-01-02] MEDS ORDERED: ASPIRIN 81 MG PO SCH (09:00)
--- NOTE | 2022-01-02 14:42 | CA ---
Transthoracic Echo Report Name: Soila Mccullough Age: 71 Gender: F : 1950 Exam Date: 01/01/2022 10:37 Exam Location: [facility] Ht (in): 67 Wt (lb): 167 Ordering Physician: Evelin Huynh Attending/Referring Phys: Enrobing Machine Feeder Zahida Presley RDCS Procedure CPT: Indications: chest pain, LV function Cardiac Hx: Technical Quality: Fair Contrast 1: Total Dose (mL): Contrast 2: Total Dose (mL): MEASUREMENTS (Male / Female) Normal Values 2D ECHO LV Diastolic Diameter PLAX 3.8 cm 4.2 - 5.9 / 3.9 - 5.3 cm LV Systolic Diameter PLAX 2.3 cm IVS Diastolic Thickness 1.2 cm 0.6 - 1.0 / 0.6 - 0.9 cm LVPW Diastolic Thickness 1.4 cm 0.6 - 1.0 / 0.6 - 0.9 cm LV Relative Wall Thickness 0.7 RV Internal Dim ED PLAX 3.4 cm LA Volume 63.3 cm??? 18 - 58 / 22 - 52 cm??? M-MODE Aortic Root Diameter MM 2.8 cm LA Systolic Diameter MM 4.2 cm LA Ao Ratio MM 1.5 AV Cusp Separation MM 1.5 cm DOPPLER AV Peak Velocity 133.6 cm/s AV Peak Gradient 7.1 mmHg LVOT Peak Velocity 115.5 cm/s LVOT Peak Gradient 5.3 mmHg MV Area PHT 3.7 cm??? Mitral E Point Velocity 74.6 cm/s Mitral A Point Velocity 91.6 cm/s Mitral E to A Ratio 0.8 MV Deceleration Time 205.1 ms MV E' Velocity 5.2 cm/s Mitral E to MV E' Ratio 14.4 TR Peak Velocity 221.8 cm/s TR Peak Gradient 19.7 mmHg Right Ventricular Systolic Press 24.7 mmHg FINDINGS Left Ventricle Normal left ventricular systolic function with no obvious regional wall motion abnormalities. Left ventricular cavity size normal. Normal left ventricular diastolic filling pattern. Left ventricular ejection fraction is estimated at 55-60 %. Right Ventricle Mild right ventricular dilatation. Right ventricular systolic pressure within normal limits. Right Atrium Mild right atrial dilatation. Left Atrium Moderately increased left atrial volume. No evidence for an atrial septal defect. Mitral Valve Structurally normal mitral valve. [id number] mitral regurgitation. Aortic Valve No aortic valve stenosis or regurgitation. Tricuspid Valve Structurally normal tricuspid valve. Mild tricuspid regurgitation. Pulmonic Valve Structurally normal pulmonic valve. Trace pulmonic regurgitation. Pericardium No pericardial effusion. Aorta Normal size aortic root and proximal ascending aorta. CONCLUSIONS Normal LV size and systolic function. Dilated left atrium. Mild to moderate mitral and mild tricuspid insufficiency. No pericardial effusion Previewed by: Dr. Jacqueline Boston MD (Electronically Signed) Final Date: 02 Jan 2022 14:41
== END 2022-01-01 17:12 | disposition home or self-care (01) ==
LOC: EC 20:05 → 6NMEDSUR 22:26
PROVIDERS: ADMIT Internal Medicine Geriatric Medicine; ATTEND Internal Medicine Geriatric Medicine
DX: R07.9 Chest pain, unspecified (principal); I25.10 Atherosclerotic heart disease of native coronary artery without angina pectoris; I11.9 Hypertensive heart disease without heart failure; E78.5 Hyperlipidemia, unspecified; E03.9 Hypothyroidism, unspecified; K58.9 Irritable bowel syndrome, unspecified; F17.210 Nicotine dependence, cigarettes, uncomplicated; I47.1 Supraventricular tachycardia; J44.9 Chronic obstructive pulmonary disease, unspecified; R60.0 Localized edema; I27.20 Pulmonary hypertension, unspecified; M06.9 Rheumatoid arthritis, unspecified; J98.11 Atelectasis; K57.30 Diverticulosis of large intestine without perforation or abscess without bleeding; I25.2 Old myocardial infarction; Z79.82 Long term (current) use of aspirin; Z79.890 Hormone replacement therapy; Z79.899 Other long term (current) drug therapy; Z88.6 Allergy status to analgesic agent; Z91.048 Other nonmedicinal substance allergy status; Z91.040 Latex allergy status; Z88.2 Allergy status to sulfonamides; Z90.49 Acquired absence of other specified parts of digestive tract; Z90.710 Acquired absence of both cervix and uterus; Z16.24 Resistance to multiple antibiotics; Z71.6 Tobacco abuse counseling; Z98.61 Coronary angioplasty status; Z80.1 Family history of malignant neoplasm of trachea, bronchus and lung; Z82.61 Family history of arthritis; Z84.1 Family history of disorders of kidney and ureter
CPT/HCPCS: 99285; 96374; 96375; 36415; 93005; 93017; 93306; 83880; 80053; 82150; 83690; 83735; 84484 ×2; 85025; 85610; 85730; 71045; 71275; 74174; 78452; G0378 ×2; A9500; J2060; J1200; J2930; J2785; Q9967

== ENCOUNTER → 2022-03-26 | Outpatient (CLI) | payer MEDICARE ==
--- NOTE | 2022-03-26 15:24 | BD ---
EXAMINATION TYPE: Axial Bone Density DATE OF EXAM: 03/26/2022 COMPARISON: 02.11.2016 CLINICAL HISTORY: 71 years year old Female. ICD-10 CODE: M81.0 KNOWN OSTEOPOROSIS Height: 65IN Weight: 164 FRAX RISK QUESTIONS: Family History (Parent hip fracture): YES Glucocorticoids (More than 3mos): YES, INHALER (Ex: prednisone, prednisolone, methylprednisolone, dexamethasone, and hydrocortisone). History of Fracture in Adulthood: YES Secondary Osteoporosis: 3. Menopause before 45: 36 Rheumatoid Arthritis: YES Current Tobacco Use: YES RISK FACTORS HISTORY OF: Surgery to Spine/Hip(right/left)/Wrist (right/left): RT HIP REPLACEMENT When: 2020 Family History of Osteoporosis: YES Active: YES Postmenopausal woman: YES TOTAL HYSTERECTOMY AT 36 Lost more than 2 inches in height since high school: YES MEDICATIONS: Thyroid Medications: Which medication: Levothyroxine How Lon YEARS Additional Medications: INHALER Additional History: KENNETH ANKLE FX EXAM MEASUREMENTS: Bone mineral densitometry was performed using the [employer] System. Bone mineral density as measured about the Lumbar spine is: ----- L1-L4(G/cm2): 1.075 T Score Values are as follows: ----- L1: -1.2 ----- L2: -0.8 ----- L3: -0.8 ----- L4: -0.9 ----- L1-L4: -0.9 Bone mineral density has: Decreased -4.8% since study of: 02.11.2016 Bone mineral density about the L hip (g/cm2): 0.768 T Score values are as follows: -----L Neck: -2.2 -----L Total: -1.9 Bone mineral density has: Decreased -11.5% since study of: 02.11.2016 FRAX%s: The graph provided illustrates a 40.8% chance for a major osteoporotic fx and a 17.8% chance for the hips probability for fx in 10 years time. IMPRESSION: Osteopenia NOTE: T-SCORE=SD OF THE YOUNG ADULT MEAN.
== END | disposition home or self-care (01) ==
LOC: RADBDWWP 13:53
PROVIDERS: ATTEND Family Medicine
DX: M85.89 Other specified disorders of bone density and structure, multiple sites (principal)
CPT/HCPCS: 77080

== ENCOUNTER 2022-07-08 15:47 | Observation (INO) | payer MEDICARE ==
[2022-07-08] MEDS ORDERED: HEPARIN SODIUM 1,000 UN/ML (10ML VL) IV ONE (16:07)
[2022-07-08] MEDS ORDERED: HEPARIN SODIUM 1,000 UN/ML (10ML VL) IV PRN (16:07)
[2022-07-08] MEDS ORDERED: DILTIAZEM 125 MG in SODIUM CHLORIDE 0.9% 100 ML IV SCH (16:15)
[2022-07-08 16:20] LABS: Basophils # (A) 0.1 k/uL (0-0.2); Basophils % (A) 1 %; Eosinophils # (A) 0.2 k/uL (0-0.7); Eosinophils % (A) 2 %; HCT 42.6 % (34.0-46.0); HGB 13.6 gm/dL (11.4-16.0); Hypochromasia Slight; Lymphocytes # (A) 1.6 k/uL (1.0-4.8); Lymphocytes % (A) 18 %; MCH 25.8 pg (25.0-35.0); MCHC 31.9 g/dL (31.0-37.0); MCV 80.8 fL (80.0-100.0); Monocytes # (A) 0.5 k/uL (0-1.0); Monocytes % (A) 6 %; Neutrophils # (A) 6.4 k/uL (1.3-7.7); Neutrophils % (A) 72 %; Platelet Count 245 k/uL (150-450); RBC 5.27 m/uL (3.80-5.40); RDW 15.6 % (11.5-15.5); WBC 8.9 k/uL (3.8-10.6)
[2022-07-08 16:25] LABS: Prothrombin Time 10.9 sec (9.0-12.0)
--- NOTE | 2022-07-08 16:25 | ED ---
General Adult HPI - General Chief complaint: Arrhythmia/Palpitations Stated complaint: Palpitations Time Seen by Provider: 07/08/22 15:48 Source: EMS Mode of arrival: EMS Limitations: no limitations - History of Present Illness Initial comments: This is a 71-year-old female with a past medical history including age fibrillation not on rate control or blood thinning medications, hypothyroidism presents emergency department for palpitations via EMS. The patient reported that she had left sided chest pain as well as palpitations intermittently throughout the day that became worse so she called EMS for evaluation. The patient did not feel lightheaded or dizzy at this time. The patient stated that the chest pain happened when she felt palpitations. The patient stated that she was recently seen by her society editor, Dr. Lubin at which point she was prescribed an anti-arrhythmic however she did not know what this medication was and was never given any instructions so she did not fill nor start taking this medication. The patient did continue to remain stable but stated she had intermittent chest pain and palpitations on my evaluation. The patient denied any other acute pain or complaint. - Related Data Home Medications Medication Instructions Recorded Confirmed Levothyroxine Sodium [Synthroid] 75 mcg PO DAILY 04/13/17 07/08/22 Aspirin EC [Ecotrin Low Dose] 81 mg PO DAILY 12/31/21 07/08/22 ALPRAZolam [Xanax] 0.25 mg PO DAILY PRN 07/08/22 07/08/22 Allergies Allergy/AdvReac Type Severity Reaction Status Date / Time adhesive tape Allergy Rash/Hives Verified 07/08/22 16:36 iodine Allergy Anaphylaxis Verified 07/08/22 16:36 latex Allergy Rash/Hives Verified 07/08/22 16:36 sulfamethoxazole Allergy Unknown Verified 07/08/22 16:36 [From Bactrim] trimethoprim [From Bactrim] Allergy Unknown Verified 07/08/22 16:36 STEROIDS AdvReac Confusion Uncoded 07/08/22 16:36 Review of Systems ROS Statement: Those systems with pertinent positive or pertinent negative responses have been documented in the HPI. ROS Other: All systems not noted in ROS Statement are negative. Past Medical History Past Medical History: Coronary Artery Disease (CAD), Hyperlipidemia, Hypertension, Rheumatoid Arthritis (RA), Supraventricular Tachycardia (SVT), Thyroid Disorder Additional Past Medical History / Comment(s): CAD post NSTEMI with PCI of the RCA. History of Any Multi-Drug Resistant Organisms: MRSA, Other MDRO Date of last positivie culture/infection: 2006 MDRO Source:: Right leg Past Surgical History: Appendectomy, Section, Cholecystectomy, Heart Catheterization With Stent, Hysterectomy, Joint Replacement Additional Past Surgical History / Comment(s): rt hip replacement 12/16/21 Past Anesthesia/Blood Transfusion Reactions: No Reported Reaction Date of Last Stent Placement:: 12/01 Past Psychological History: No Psychological Hx Reported Smoking Status: Current some day smoker Past Alcohol Use History: None Reported Past Drug Use History: None Reported - Past Family History Father Family Medical History: Cancer Additional Family Medical History / Comment(s): Father at age 51 from lung cancer with metastatic disease. Mother Family Medical History: Rheumatoid Arthritis (RA) Additional Family Medical History / Comment(s): Mother at age 77 from old age but had history of rheumatoid arthritis. Brother(s) Additional Family Medical History / Comment(s): Patient had 1 brother that from complications of agent orange. Daughter(s) Additional Family Medical History / Comment(s): Patient is 3 children with no major medical problems. Sister(s) Family Medical History: Renal Disease, Vascular Disorder General Exam Limitations: no limitations General appearance: alert, in no apparent distress Head exam: Present: atraumatic, normocephalic Eye exam: Present: normal appearance, PERRL Pupils: Present: normal accommodation ENT exam: Present: normal exam, normal oropharynx, mucous membranes moist Neck exam: Present: normal inspection, full ROM Respiratory exam: Present: normal lung sounds bilaterally Cardiovascular Exam: Present: tachycardia, irregular rhythm GI/Abdominal exam: Present: soft, normal bowel sounds Extremities exam: Present: normal inspection, full ROM Back exam: Present: normal inspection, full ROM Neurological exam: Present: alert, oriented X3, CN II-XII intact Psychiatric exam: Present: normal affect, normal mood Skin exam: Present: warm, dry Course Vital Signs 07/08/22 07/08/22 07/08/22 15:48 16:52 17:21 Pulse Rate 116 H 154 H 83 Respiratory 20 18 18 Rate Blood Pressure 144/75 124/87 138/85 O2 Sat by Pulse 93 L 94 L 95 Oximetry EKG Findings - EKG Comments: EKG Findings:: An EKG was obtained and was reviewed by myself. EKG showed a rate of 153, NH interval that was unable to be titrated secondary to the irregular rhythm. QRS duration was 84 and QTC was 357. This EKG showed atrial fibrillation with RVR. The patient doesn't a history of atrial fibrillation however is not on any blood thinning medications or rate control. Medical Decision Making - Medical Decision Making The patient was seen and evaluated emergency department. Physical exam, the patient was resting in bed with intermittent chest pain or palpitations. Vital signs admission did show A. fib with RVR with a heart rate between 130 to 150. The patient continued to remain stable however. The patient's blood pressure was 144/90. Laboratory workup was obtained as was a chest x-ray and EKG. EKG confirmed A. fib with RVR. Due to the patient's blood pressure, the patient did not get a Cardizem bolus however did get started on a Cardizem drip as well as a heparin drip as she was not on any rate control medications nor any blood thinning medications prior. Due to the patient's A. fib with RVR on Cardizem and heparin, the patient will require inpatient admission. The patient's physician, Dr. Wtats, is being covered by [facility], Dr. Molina. She did accept the patient for admission. Cardiology will also be placed in consult at this time. The patient did convert to normal sinus rhythm with 5 mg per hour of Cardizem. The patient and her [id number] were told this plan are agreeable. The patient was admitted in stable condition. - Lab Data Result diagrams: 07/08/22 16:13 07/08/22 16:13 Lab Results 07/08/22 07/08/22 07/08/22 Range/Units 16:13 16:13 16:13 WBC 8.9 (3.8-10.6) k/uL RBC 5.27 (3.80-5.40) m/uL Hgb 13.6 (11.4-16.0) gm/dL Hct 42.6 (34.0-46.0) % MCV 80.8 (80.0-100.0) fL MCH 25.8 (25.0-35.0) pg MCHC 31.9 (31.0-37.0) g/dL RDW 15.6 H (11.5-15.5) % Plt Count 245 (150-450) k/uL MPV 8.0 Neutrophils % 72 % Lymphocytes % 18 % Monocytes % 6 % Eosinophils % 2 % Basophils % 1 % Neutrophils # 6.4 (1.3-7.7) k/uL Lymphocytes # 1.6 (1.0-4.8) k/uL Monocytes # 0.5 (0-1.0) k/uL Eosinophils # 0.2 (0-0.7) k/uL Basophils # 0.1 (0-0.2) k/uL Hypochromasia Slight PT (9.0-12.0) sec INR (<1.2) Sodium 137 (137-145) mmol/L Potassium 3.3 L (3.5-5.1) mmol/L Chloride 103 (98-107) mmol/L Carbon Dioxide 27 (22-30) mmol/L Anion Gap 7 mmol/L BUN 15 (7-17) mg/dL Creatinine 0.84 (0.52-1.04) mg/dL Est GFR (CKD-EPI)AfAm 81 (>60 ml/min/1.73 sqM) Est GFR (CKD-EPI)NonAf 70 (>60 ml/min/1.73 sqM) Glucose 215 H (74-99) mg/dL Calcium 8.4 (8.4-10.2) mg/dL Total Bilirubin 0.3 (0.2-1.3) mg/dL AST 29 (14-36) U/L ALT 18 (4-34) U/L Alkaline Phosphatase 102 (38-126) U/L Troponin I 0.013 (0.000-0.034) ng/mL NT-Pro-B Natriuret Pep pg/mL Total Protein 6.7 (6.3-8.2) g/dL Albumin 3.8 (3.5-5.0) g/dL 07/08/22 07/08/22 Range/Units 16:13 16:13 WBC (3.8-10.6) k/uL RBC (3.80-5.40) m/uL Hgb (11.4-16.0) gm/dL Hct (34.0-46.0) % MCV (80.0-100.0) fL MCH (25.0-35.0) pg MCHC (31.0-37.0) g/dL RDW (11.5-15.5) % Plt Count (150-450) k/uL MPV Neutrophils % % Lymphocytes % % Monocytes % % Eosinophils % % Basophils % % Neutrophils # (1.3-7.7) k/uL Lymphocytes # (1.0-4.8) k/uL Monocytes # (0-1.0) k/uL Eosinophils # (0-0.7) k/uL Basophils # (0-0.2) k/uL Hypochromasia PT 10.9 (9.0-12.0) sec INR 1.0 (<1.2) Sodium (137-145) mmol/L Potassium (3.5-5.1) mmol/L Chloride (98-107) mmol/L Carbon Dioxide (22-30) mmol/L Anion Gap mmol/L BUN (7-17) mg/dL Creatinine (0.52-1.04) mg/dL Est GFR (CKD-EPI)AfAm (>60 ml/min/1.73 sqM) Est GFR (CKD-EPI)NonAf (>60 ml/min/1.73 sqM) Glucose (74-99) mg/dL Calcium (8.4-10.2) mg/dL Total Bilirubin (0.2-1.3) mg/dL AST (14-36) U/L ALT (4-34) U/L Alkaline Phosphatase (38-126) U/L Troponin I (0.000-0.034) ng/mL NT-Pro-B Natriuret Pep 446 pg/mL Total Protein (6.3-8.2) g/dL Albumin (3.5-5.0) g/dL Critical Care Time Critical Care Time: Yes Total Critical Care Time: 43 Disposition Clinical Impression: Atrial fibrillation with rapid ventricular response Disposition: ADMITTED IP TO THIS HOSP Condition: Stable Is patient prescribed a controlled substance at d/c from ED?: No Referrals: Jeramie Watts DO [Primary Care Provider] - 1-2 days Time of Disposition: 17:25 Decision to Admit Reason: Admit from EC Decision Date: 07/08/22 Decision Time: 17:25
[2022-07-08 16:29] LABS: Albumin 3.8 g/dL (3.5-5.0); Calcium 8.4 mg/dL (8.4-10.2); Potassium 3.3 mmol/L (3.5-5.1); Total Bilirubin 0.3 mg/dL (0.2-1.3); Total Protein 6.7 g/dL (6.3-8.2)
--- NOTE | 2022-07-08 16:41 | XR ---
EXAMINATION TYPE: XR chest 2V DATE OF EXAM: 07/08/2022 COMPARISON: 12/31/2021 HISTORY: Chest pain TECHNIQUE: 2 view FINDINGS: Heart and mediastinum are normal. Lungs are clear of consolidation. There are no hilar mass es. Thoracic aorta is atheromatous. There are chest leads. Bony thorax is intact. IMPRESSION: No active cardiopulmonary disease. There is no adverse change compared to old exam. No he art failure.
[2022-07-08] MEDS: HEPARIN SOD,PORK IN 0.45% NACL 25,000 UNIT in 0.45% NACL 1 250ML.BAG IV SCH (16:49)
[2022-07-08] MEDS ORDERED: NALOXONE 0.4 MG/ML 1 ML VIAL IV PRN (17:29)
[2022-07-08] MEDS ORDERED: POTASSIUM CHLORIDE ER 20 MEQ TAB.ER PO STA (17:33)
[2022-07-08] MEDS: NICOTINE 14MG/24HR PATCH TRANSDERM SCH (18:06)
[2022-07-08] MEDS: SODIUM CHLORIDE 0.9% 1,000 ML IV SCH (18:49)
[2022-07-08 19:02] LABS: Appearance,Urine Clear (Clear); Bilirubin,Urine Negative (Negative); Blood,Urine Negative (Negative); Color,Urine Yellow; Glucose,Urine (UA) Negative (Negative); Ketones,Urine Negative (Negative); Leukocyte Esterase,Urine Negative (Negative); Nitrite,Urine Negative (Negative); PH, Urine 5.5 (5.0-8.0); Protein,Urine Negative (Negative); Specific Gravity,Urine 1.008 (1.001-1.035); Urobilinogen,Urine <2.0 mg/dL (<2.0)
[2022-07-09] MEDS: LEVOTHYROXINE 75 MCG TAB PO SCH (05:22)
[2022-07-09] MEDS: SODIUM CHLORIDE 0.9% 1,000 ML IV SCH (05:26)
[2022-07-09] MEDS ORDERED: IPRATROPIUM 0.5 MG/2.5 ML NEBU INHALATION STA (07:37)
[2022-07-09] MEDS ORDERED: IPRATROPIUM 0.5 MG/2.5 ML NEBU INHALATION PRN (07:37)
--- NOTE | 2022-07-09 07:39 | P.HPIM ---
History of Present Illness This is a pleasant 89 is old female with multiple medical problems including coronary artery disease, hypertension, hyperlipidemia, moderate arthritis, status post stent with PCI to the RCA. Presents with palpitation . Associated with left chest pain/shoulder pain of one-day duration about 7-8/10 in severity now completely resolved as 0/10 in severity associated with recent heart rate and pounding heart rate. Patient was not feeling well over the last week but she was drinking a lot of coffee, she patient was counseled against drinking extra herniated drink. She denies dyspnea at rest but she's for better from some exertional dyspnea. She smokes about 6-7 cigarettes per day and she was counseled to quit and she agrees but she denies alcohol or illicit drugs. 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 Oden, PCP Dr. Watts and she does not follow up with housing installer but she uses neurology she denied GI or urinary symptoms, no vomiting abdominal pain or diarrhea, no increased frequency or urgency of urination. No BOBBIN HANDLER symptoms like no headache or dizziness or weakness or numbness or blurred vision. On admission patient was tachycardic 116-154, currently heart rate with range of 70-80. Blood pressure is controlled, afebrile and she is saturating 95% and 2 L of oxygen CBC, unremarkable, INR is normal 1.0. BMP and liver enzymes are unremarkable. Troponin,. BNP is negative. Urinalysis is negative. Chest x-ray no acute process. Emergency room started on heparin and Cardizem drip and gentle hydration of normal saline 75 mL/h EKG showing atrial flutter with rate of 153 and QTC 357. Review of Systems Review of systems CONSTITUTIONAL: No fever, no malaise, no fatigue. HEENT: No recent visual problems or hearing problems. Denied any sore throat. CARDIOVASCULAR: No orthopnea, PND, no palpitations, no syncope. PULMONARY: No shortness of breath at rest, no cough, no hemoptysis. GASTROINTESTINAL: No diarrhea, no nausea, no vomiting, no abdominal pain. Normoactive bowel sounds. NEUROLOGICAL: No headaches, no weakness, no numbness. HEMATOLOGICAL: Denies any bleeding or petechiae. GENITOURINARY: Denies any burning micturition, frequency, or urgency. MUSCULOSKELETAL/RHEUMATOLOGICAL: Denies any joint pain, swelling, or any muscle pain. ENDOCRINE: Denies any polyuria or polydipsia. Past Medical History Past Medical History: Coronary Artery Disease (CAD), Hyperlipidemia, Hypertension, Rheumatoid Arthritis (RA), Supraventricular Tachycardia (SVT), Thyroid Disorder Additional Past Medical History / Comment(s): CAD post NSTEMI with PCI of the RCA. History of Any Multi-Drug Resistant Organisms: MRSA, Other MDRO Date of last positivie culture/infection: 2006 MDRO Source:: Right leg Past Surgical History: Appendectomy, Section, Cholecystectomy, Heart Catheterization With Stent, Hysterectomy, Joint Replacement Additional Past Surgical History / Comment(s): rt hip replacement 12/16/21 Past Anesthesia/Blood Transfusion Reactions: No Reported Reaction Date of Last Stent Placement:: 12/01 Past Psychological History: No Psychological Hx Reported Additional Psychological History / Comment(s): passed 11/2019 from [facility] alone now Smoking Status: Current some day smoker Past Alcohol Use History: None Reported Additional Past Alcohol Use History / Comment(s): She denies any marijuana or illicit drug use. Past Drug Use History: None Reported Additional Drug Use History / Comment(s): uses cannibis oil for R/A - Past Family History Father Family Medical History: Cancer Additional Family Medical History / Comment(s): Father at age 51 from lung cancer with metastatic disease. Mother Family Medical History: Rheumatoid Arthritis (RA) Additional Family Medical History / Comment(s): Mother at age 77 from old age but had history of rheumatoid arthritis. Brother(s) Additional Family Medical History / Comment(s): Patient had 1 brother that from complications of agent orange. Daughter(s) Additional Family Medical History / Comment(s): Patient has 3 children with no major medical problems. Sister(s) Family Medical History: Renal Disease, Vascular Disorder Medications and Allergies Home Medications Medication Instructions Recorded Confirmed Type Levothyroxine Sodium [Synthroid] 75 mcg PO DAILY 04/13/17 07/08/22 History Aspirin EC [Ecotrin Low Dose] 81 mg PO DAILY 12/31/21 07/08/22 History ALPRAZolam [Xanax] 0.25 mg PO DAILY PRN 07/08/22 07/08/22 History Allergies Allergy/AdvReac Type Severity Reaction Status Date / Time adhesive tape Allergy Rash/Hives Verified 07/08/22 16:36 iodine Allergy Anaphylaxis Verified 07/08/22 16:36 latex Allergy Rash/Hives Verified 07/08/22 16:36 sulfamethoxazole Allergy Unknown Verified 07/08/22 16:36 [From Bactrim] trimethoprim [From Bactrim] Allergy Unknown Verified 07/08/22 16:36 STEROIDS AdvReac Confusion Uncoded 07/08/22 16:36 Physical Exam Vitals: Vital Signs Temp Pulse Pulse Resp BP BP Pulse Ox 07/09/22 04:00 64 18 138/77 92 L 07/09/22 02:00 63 16 07/08/22 23:47 98.0 F 63 16 105/53 94 L 07/08/22 21:32 16 07/08/22 20:00 97.9 F 67 16 100/50 97 07/08/22 18:10 76 18 124/62 95 07/08/22 17:21 83 18 138/85 95 07/08/22 16:52 154 H 18 124/87 94 L 07/08/22 15:48 116 H 20 144/75 93 L Intake and Output 07/08/22 07/09/22 07/09/22 22:59 06:59 14:59 Intake Total 120.886 Output Total 300 Balance -179.114 Intake: Intake, IV Titration 120.886 Amount Heparin Sod,Pork in 0.45% 120.886 NaCl 25,000 unit In 0.45 % NaCl 1 250ml.bag @ 18 UNITS/KG/HR 13.88 mls/hr IV .Q18H1M [facility] Rx#: [id number] Output: Urine 300 Other: Voiding Method Toilet # Voids 1 Weight 77.111 kg 77.2 kg GENERAL: The patient is alert and oriented x3, not in any acute distress. Well developed, well nourished. HEENT: Pupils are round and equally reacting to light. EOMI. No scleral icterus. No conjunctival pallor. Normocephalic, atraumatic. No pharyngeal erythema. No thyromegaly. CARDIOVASCULAR: S1 and S2 present. No murmurs, rubs, or gallops. PULMONARY: Chest is clear to auscultation, no wheezing or crackles. ABDOMEN: Soft, nontender, nondistended, normoactive bowel sounds. No palpable organomegaly. MUSCULOSKELETAL: No joint swelling or deformity. EXTREMITIES: No cyanosis, clubbing, or pedal edema. NEUROLOGICAL: Gross neurological examination did not reveal any focal deficits. SKIN: No rashes. no petechiae. Results CBC & Chem 7: 07/08/22 16:13 07/08/22 16:13 Labs: Abnormal Lab Results - Last 24 Hours (Table) 07/08/22 07/08/22 07/08/22 Range/Units 16:13 16:13 21:45 RDW 15.6 H (11.5-15.5) % APTT 105.6 H* (22.0-30.0) sec Potassium 3.3 L (3.5-5.1) mmol/L Glucose 215 H (74-99) mg/dL Thrombosis Risk Factor Assmnt - Choose All That Apply Any of the Below Risk Factors Present?: Yes Each Factor Represents 1 point: Obesity (BMI >25), Swollen legs (current), Varicose veins Each Risk Factor Represents 2 Points: Age 61-74 years Other congenital or acquired thrombophilia - If yes, enter type in comment: No Thrombosis Risk Factor Assessment Total Risk Factor Score: 5 Thrombosis Risk Factor Assessment Level: High Risk Assessment and Plan Assessment: A. flutter and RVR Left shoulder/chest pain secondary to above resolved nicotine dependence Mild COPD exacerbation Hypertension Hyperlipidemia History of coronary artery disease status post stent and PCI to the RCA Rheumatoid arthritis and History of SVT Hypothyroidism Plan: Continue with heparin drip patient is already on aspirin at home Continue with Cardizem drip discontinue IV fluids Cardiology consult treatment treatment and inhalation steroids Labs and medication were reviewed.. Continue same treatment. Continue with symptomatic treatment. Resume home medication. Monitor lytes and vitals. DVT and GI prophylaxis. Further recommendations as per clinical course of the patient DVT prophylaxis: heparin GI Prophylaxis: Pepcid PT/OT: Pending
[2022-07-09] MEDS: NICOTINE 14MG/24HR PATCH TRANSDERM SCH (08:45)
[2022-07-09] MEDS: ASPIRIN 81 MG PO SCH (08:45)
[2022-07-09] MEDS: SYMBICORT 160-4.5 MCG INHALER INHALATION SCH ×2 (09:32→20:01)
--- NOTE | 2022-07-09 13:21 | P.CRDCN ---
History of Present Illness History of present illness: HISTORY OF PRESENTING ILLNESS This is a pleasant 71-year-old with past medical history significant for reported SVT status post ablation per patient, hypertension, CAD status post PCI and new onset of A. fib with RVR who presents secondary to episode of chest pain and pressure with some shortness breath and feeling her heart racing. She was found to be in A. fib with mild RVR with heart rates in the 130s. She admits she recently followed with Dr. Wright and had been placed on a cholesterol medication and metoprolol however has not started this yet. She has had rare episodes of feeling her heart racing however episode yesterday was much more intense and persistent. She denies any changes to her medications. She was placed on Cardizem drip and converted to sinus rhythm shortly thereafter. She was noted to be a lot mildly hypokalemic. She had prior stenting 5-6 years ago and denies any chest pain or pressure on a routine basis. Currently she feels well. No lightheadedness or dizziness. DIAGNOSTICS EKG reveals A. fib with RVR with nonspecific ST depressions. REVIEW OF SYSTEMS At the time of my exam: CONSTITUTIONAL: Denies fever or chills. CARDIOVASCULAR: +chest pain, +shortness of breath, no orthopnea, PND or palpitations. RESPIRATORY: Denies cough. GASTROINTESTINAL: Denies abdominal pain, diarrhea, constipation, nausea or vomiting. MUSCULOSKELETAL: Denies myalgias. NEUROLOGIC: Denies numbness, tingling or weakness. ENDOCRINE: Denies fatigue, weight change, polydipsia or polyurina. GENITOURINARY: Denies burning, hematuria or urgency with micturation. HEMATOLOGIC: Denies history of anemia or bleeding. PHYSICAL EXAMINATION Vital signs reviewed. CONSTITUTIONAL: No apparent distress. HEENT: Head is normocephalic. Pupils are equal, round. Sclerae anicteric. Mucous membranes of the mouth are moist. No JVD. No carotid bruit. CHEST EXAMINATION: Lungs are clear to auscultation. No chest wall tenderness is noted on palpation or with deep breathing. HEART EXAMINATION: Regular rate and rhythm. S1, S2 heard. No murmurs, gallops or rub. ABDOMEN: Soft, nontender. Positive bowel sounds. EXTREMITIES: 2+ peripheral pulses, no lower extremity edema and no calf tenderness. NEUROLOGIC EXAMINATION: Patient is awake, alert and oriented x3. ASSESSMENT New-onset A. fib with RVR, currently sinus rhythm 2. Episode of chest pain related to A. fib with RVR 3. History of CAD status post PCI 4. Reported history of SVT status post ablation in the remote past PLAN Majority of symptoms appear related to new onset of A. fib with RVR. Troponin normal. Check TSH. Discussed recommendations for anticoagulation given elevated chads Vasc score and patient is agreeable. Stop aspirin going home. Check 2-D echo. If unrevealing echo and patient is tolerating metoprolol, patient may be discharged home tomorrow morning 07/10. Past Medical History Past Medical History: Coronary Artery Disease (CAD), Hyperlipidemia, Hy pertension, Rheumatoid Arthritis (RA), Supraventricular Tachycardia (SVT), Thyroid Disorder Additional Past Medical History / Comment(s): CAD post NSTEMI with PCI of the RCA. History of Any Multi-Drug Resistant Organisms: MRSA, Other MDRO Date of last positivie culture/infection: 2006 MDRO Source:: Right leg Past Surgical History: Appendectomy, Section, Cholecystectomy, Heart Catheterization With Stent, Hysterectomy, Joint Replacement Additional Past Surgical History / Comment(s): rt hip replacement 12/16/21 Past Anesthesia/Blood Transfusion Reactions: No Reported Reaction Date of Last Stent Placement:: 12/01 Past Psychological History: No Psychological Hx Reported Additional Psychological History / Comment(s): passed 11/2019 from covid- lives alone now Smoking Status: Current some day smoker Past Alcohol Use History: None Reported Additional Past Alcohol Use History / Comment(s): She denies any marijuana or illicit drug use. Past Drug Use History: None Reported Additional Drug Use History / Comment(s): uses cannibis oil for R/A - Past Family History Father Family Medical History: Cancer Additional Family Medical History / Comment(s): Father at age 51 from lung cancer with metastatic disease. Mother Family Medical History: Rheumatoid Arthritis (RA) Additional Family Medical History / Comment(s): Mother at age 77 from old age but had history of rheumatoid arthritis. Brother(s) Additional Family Medical History / Comment(s): Patient had 1 brother that from complications of agent orange. Daughter(s) Additional Family Medical History / Comment(s): Patient has 3 children with no major medical problems. Sister(s) Family Medical History: Renal Disease, Vascular Disorder Medications and Allergies Home Medications Medication Instructions Recorded Confirmed Type Levothyroxine Sodium [Synthroid] 75 mcg PO DAILY 04/13/17 07/08/22 History Aspirin EC [Ecotrin Low Dose] 81 mg PO DAILY 12/31/21 07/08/22 History ALPRAZolam [Xanax] 0.25 mg PO DAILY PRN 07/08/22 07/08/22 History Allergies Allergy/AdvReac Type Severity Reaction Status Date / Time adhesive tape Allergy Rash/Hives Verified 07/08/22 16:36 iodine Allergy Anaphylaxis Verified 07/08/22 16:36 latex Allergy Rash/Hives Verified 07/08/22 16:36 sulfamethoxazole Allergy Unknown Verified 07/08/22 16:36 [From Bactrim] trimethoprim [From Bactrim] Allergy Unknown Verified 07/08/22 16:36 STEROIDS AdvReac Confusion Uncoded 07/08/22 16:36 Physical Exam Vitals: Vital Signs Temp Pulse Pulse Resp BP BP Pulse Ox 07/09/22 11:50 98.3 F 70 18 140/83 90 L 07/09/22 08:00 97.2 F L 61 18 116/63 90 L 07/09/22 04:00 64 18 138/77 92 L 07/09/22 02:00 63 16 07/08/22 23:47 98.0 F 63 16 105/53 94 L 07/08/22 21:32 16 07/08/22 20:00 97.9 F 67 16 100/50 97 07/08/22 18:10 76 18 124/62 95 07/08/22 17:21 83 18 138/85 95 07/08/22 16:52 154 H 18 124/87 94 L 07/08/22 15:48 116 H 20 144/75 93 L Intake and Output 07/08/22 07/09/22 07/09/22 22:59 06:59 14:59 Intake Total 120.886 102.481 Output Total 300 Balance -179.114 102.481 Intake: Intake, IV Titration 120.886 102.481 Amount Heparin Sod,Pork in 0.45% 120.886 102.481 NaCl 25,000 unit In 0.45 % NaCl 1 250ml.bag @ 18 UNITS/KG/HR 13.88 mls/hr IV .Q18H1M [facility] Rx#: [id number] Output: Urine 300 Other: Voiding Method Toilet # Voids 1 1 Weight 77.111 kg 77.2 kg Results 07/08/22 16:13 07/08/22 16:13 Cardiac Enzymes 07/08/22 07/08/22 Range/Units 16:13 16:13 AST 29 (14-36) U/L Troponin I 0.013 (0.000-0.034) ng/mL Coagulation 07/08/22 07/08/22 07/09/22 Range/Units 16:13 21:45 04:17 PT 10.9 (9.0-12.0) sec APTT 105.6 H* 29.3 (22.0-30.0) sec 07/09/22 Range/Units 11:08 PT (9.0-12.0) sec APTT 104.0 H* (22.0-30.0) sec CBC 07/08/22 Range/Units 16:13 WBC 8.9 (3.8-10.6) k/uL RBC 5.27 (3.80-5.40) m/uL Hgb 13.6 (11.4-16.0) gm/dL Hct 42.6 (34.0-46.0) % Plt Count 245 (150-450) k/uL Comprehensive Metabolic Panel 07/08/22 Range/Units 16:13 Sodium 137 (137-145) mmol/L Potassium 3.3 L (3.5-5.1) mmol/L Chloride 103 (98-107) mmol/L Carbon Dioxide 27 (22-30) mmol/L BUN 15 (7-17) mg/dL Creatinine 0.84 (0.52-1.04) mg/dL Glucose 215 H (74-99) mg/dL Calcium 8.4 (8.4-10.2) mg/dL AST 29 (14-36) U/L ALT 18 (4-34) U/L Alkaline Phosphatase 102 (38-126) U/L Total Protein 6.7 (6.3-8.2) g/dL Albumin 3.8 (3.5-5.0) g/dL Current Medications Generic Name Dose Route Start Last Admin Trade Name Freq PRN Reason Stop Dose Admin Aspirin 81 mg 07/09/22 09:00 07/09/22 08:45 Aspirin 81 Mg PO 81 mg DAILY [facility] Administration Budesonide/Formoterol Fumarate 2 puff 07/09/22 08:00 07/09/22 09:32 Symbicort 160-4.5 Mcg Inhaler INHALATION Not Given RT-BID DON[facility] Heparin Sodium (Porcine) 0 unit 07/08/22 16:07 07/09/22 05:20 Heparin Sodium 1,000 Un/Ml (10ml Vl) IV 6,160 unit PER PROTOCOL PRN Administration Low PTT Protocol Heparin Sodium/Sodium Chloride 250 mls @ 13.88 mls/hr 07/08/22 16:15 07/09/22 12:35 25,000 unit/ Sodium Chloride IV 0 units/kg/hr .Q18H1M [facility] 0 mls/hr Titration Protocol 18 UNITS/KG/HR Diltiazem HCl 125 mg/ Sodium 125 mls @ 5 mls/hr 07/08/22 16:15 07/08/22 16:50 Chloride IV 5 mg/hr .Q24H [facility] 5 mls/hr Administration Protocol 5 MG/HR Ipratropium [place] 0.5 mg 07/09/22 07:37 Ipratropium 0.5 Mg/2.5 Ml Nebu INHALATION RT-QID PRN Shortness Of Breath Or Wheezing Levothyroxine Sodium 75 mcg 07/09/22 06:30 07/09/22 05:22 Levothyroxine 75 Mcg Tab PO 75 mcg DAILY@0630 [facility] Administration Naloxone HCl 0.2 mg 07/08/22 17:29 Naloxone 0.4 Mg/Ml 1 Ml Vial IV Q2M PRN Opioid Reversal Nicotine 1 patch 07/08/22 18:15 07/09/22 08:45 Nicotine 14mg/24hr Patch TRANSDERM 1 patch DAILY [facility] Administration Intake and Output 07/08/22 07/09/22 07/09/22 22:59 06:59 14:59 Intake Total 120.886 102.481 Output Total 300 Balance -179.114 102.481 Intake: Intake, IV Titration 120.886 102.481 Amount Heparin Sod,Pork in 0.45% 120.886 102.481 NaCl 25,000 unit In 0.45 % NaCl 1 250ml.bag @ 18 UNITS/KG/HR 13.88 mls/hr IV .Q18H1M [facility] Rx#: [id number] Output: Urine 300 Other: Voiding Method Toilet # Voids 1 1 Weight 77.111 kg 77.2 kg 07/08/22 16:13 07/08/22 16:13
[2022-07-09] MEDS: HEPARIN SOD,PORK IN 0.45% NACL 25,000 UNIT in 0.45% NACL 1 250ML.BAG IV SCH (14:07)
[2022-07-09] MEDS: METOPROLOL SUCCINATE (ER) 25 MG TAB.ER.24H PO SCH (14:15)
[2022-07-09] MEDS: APIXABAN 5 MG TAB PO SCH ×2 (14:15→21:26)
[2022-07-10 04:48] LABS: Glucose,Whole Blood 133 mg/dL (70-110)
[2022-07-10] MEDS: LEVOTHYROXINE 75 MCG TAB PO SCH (06:34)
[2022-07-10] MEDS: NICOTINE 14MG/24HR PATCH TRANSDERM SCH (08:15)
[2022-07-10] MEDS: APIXABAN 5 MG TAB PO SCH (08:15)
[2022-07-10] MEDS: METOPROLOL SUCCINATE (ER) 25 MG TAB.ER.24H PO SCH (08:15)
[2022-07-10] MEDS: ASPIRIN 81 MG PO SCH (08:15)
[2022-07-10 08:34] LABS: Basophils # (A) 0.1 k/uL (0-0.2); Basophils % (A) 1 %; Eosinophils # (A) 0.2 k/uL (0-0.7); Eosinophils % (A) 4 %; HCT 38.6 % (34.0-46.0); HGB 11.9 gm/dL (11.4-16.0); Hypochromasia Marked; Lymphocytes # (A) 1.2 k/uL (1.0-4.8); Lymphocytes % (A) 20 %; MCH 25.4 pg (25.0-35.0); MCHC 30.8 g/dL (31.0-37.0); MCV 82.6 fL (80.0-100.0); Mean Platelet Volume 8.4; Monocytes # (A) 0.4 k/uL (0-1.0); Monocytes % (A) 7 %; Neutrophils % (A) 67 %; Platelet Count 221 k/uL (150-450); RBC 4.67 m/uL (3.80-5.40); RDW 15.8 % (11.5-15.5); WBC 5.9 k/uL (3.8-10.6)
[2022-07-10] MEDS: SYMBICORT 160-4.5 MCG INHALER INHALATION SCH (08:50)
[2022-07-10] MEDS ORDERED: FAMOTIDINE 20 MG/2 ML VIAL IV SCH (09:00)
--- NOTE | 2022-07-10 14:02 | P.PN ---
Subjective HISTORY OF PRESENTING ILLNESS This is a pleasant 71-year-old with past medical history significant for reported SVT status post ablation per patient, hypertension, CAD status post PCI and new onset of A. fib with RVR who presents secondary to episode of chest pain and pressure with some shortness breath and feeling her heart racing. She was found to be in A. fib with mild RVR with heart rates in the 130s. She admits she recently followed with Dr. Wright and had been placed on a cholesterol medication and metoprolol however has not started this yet. She has had rare episodes of feeling her heart racing however episode yesterday was much more intense and persistent. She denies any changes to her medications. She was placed on Cardizem drip and converted to sinus rhythm shortly thereafter. She was noted to be a lot mildly hypokalemic. She had prior stenting 5-6 years ago and denies any chest pain or pressure on a routine basis. Currently she feels well. No lightheadedness or dizziness. DIAGNOSTICS EKG reveals A. fib with RVR with nonspecific ST depressions. 07/10 Patient seen and examined. Patient denies any further episodes. No further chest pain. Repeat troponin mildly elevated appears related to Afib PHYSICAL EXAMINATION Vital signs reviewed. CONSTITUTIONAL: No apparent distress. HEENT: Head is normocephalic. Pupils are equal, round. Sclerae anicteric. Mucous membranes of the mouth are moist. No JVD. No carotid bruit. CHEST EXAMINATION: Lungs are clear to auscultation. No chest wall tenderness is noted on palpation or with deep breathing. HEART EXAMINATION: Regular rate and rhythm. S1, S2 heard. No murmurs, gallops or rub. ABDOMEN: Soft, nontender. Positive bowel sounds. EXTREMITIES: 2+ peripheral pulses, no lower extremity edema and no calf tenderness. NEUROLOGIC EXAMINATION: Patient is awake, alert and oriented x3. ASSESSMENT 1. New-onset A. fib with RVR, currently sinus rhythm 2. Episode of chest pain related to A. fib with RVR 3. History of CAD status post PCI 4. Reported history of SVT status post ablation in the remote past 5. NSTEMI, type 2 mechanism related to AFib with RVR PLAN Patient without any further episodes. She did have mildly elevated troponins with chest pain resolving after converting to sinus rhythm and non-STEMI appears related to A. fib. Continue with metoprolol. Continue with Eliquis. If has further episodes of chest pain discussed coming into ER and likely stress testing. OK to perform echo as an outpt Objective - Vital Signs Vital signs: Vital Signs Temp 98.4 F 07/10/22 08:12 Pulse 63 07/10/22 08:12 Resp 17 07/10/22 08:12 BP 157/79 07/10/22 08:12 Pulse Ox 93 L 07/10/22 08:12 FiO2 Intake & Output 07/09/22 07/10/22 07/10/22 18:59 06:59 18:59 Intake Total 102.481 Balance 102.481 Intake: Intake, IV Titration 102.481 Amount Heparin Sod,Pork in 0.45% 102.481 NaCl 25,000 unit In 0.45 % NaCl 1 250ml.bag @ 18 UNITS/KG/HR 13.88 mls/hr IV .Q18H1M [facility] Rx#: [id number] Other: Voiding Method Toilet # Voids 1 1 - Labs CBC & Chem 7: 07/10/22 07:50 07/08/22 16:13 Labs: Abnormal Lab Results - Last 24 Hours (Table) 07/09/22 07/10/22 07/10/22 Range/Units 15:32 04:46 07:50 MCHC 30.8 L (31.0-37.0) g/dL RDW 15.8 H (11.5-15.5) % POC Glucose (mg/dL) 133 H (70-110) mg/dL Troponin I 0.226 H* (0.000-0.034) ng/mL
[2022-07-10 14:24] VITALS: BP 144/73; PULSE 65; RESP 16; TEMP 98
--- NOTE | 2022-07-10 16:47 | P.CNPUL ---
History of Present Illness Consult date: 07/10/22 Reason for consult: COPD History of present illness: 71-year-old female patient hospitalized for A. fib with rapid ventricular response. She presented to the hospital because of chest pain and some shortness of breath. The heart was racing. She was found to be in rapid ventricle response with a heart rate in the 130 range. The patient was started on a Cardizem drip and she converted spontaneously. She is still in normal sinus rhythm. The patient was seen by cardiology. EKG showed nonspecific changes. The patient felt better. The patient's repeat troponins showed mild elevation and this was thought to be related to atrial fibrillation. She is known to have CAD and previous PCI. She also has a previous history of SVT post-ablation. The patient was also asked to be seen by pulmonary based on history of COPD. She has advanced COPD. Recently, she was started on Trelegy Ellipta one inhalation a day and this has helped her quite a bit. She has probably had a screen has abuse on an as-needed basis. She has oxygen and she is using it only on an as-needed basis. On room air oxygen. Pulse ox is around 91-91%. The patient has no significant cough or sputum production. No pleurisy. No hemoptysis. She is ambulating and she is able to maintain a saturation above 90%. Chest exit is consistent with COPD. No other complaints otherwise for now. No recent exacerbation of her COPD. She is an ex-smoker. Review of Systems Constitutional: Denies chills, Denies fever Eyes: denies as per HPI, denies blurred vision, denies bulging eye, denies decreased vision, denies diplopia, denies discharge, denies dry eye, denies irritation, denies itching, denies pain, denies photophobia, denies loss of peripheral vision, denies loss of vision, denies tunnel vision/blind spots Ears: deny: decreased hearing, ear discharge, earache, tinnitus Ears, nose, mouth and throat: Denies headache, Denies sore throat Cardiovascular: Reports decreased exercise tolerance, Reports shortness of breath Respiratory: Reports cough, Reports cough with sputum, Reports dyspnea, Reports respiratory infections, Reports wheezing Gastrointestinal: Denies abdominal pain, Denies diarrhea, Denies nausea, Denies vomiting Genitourinary: Reports as per HPI Menstruation: Reports as per HPI Musculoskeletal: Reports as per HPI Musculoskeletal: absent: ankle pain, ankle stiffness, ankle swelling Integumentary: Denies pruritus, Denies rash Neurological: Denies numbness, Denies weakness Psychiatric: Denies anxiety, Denies depression Endocrine: Reports as per HPI Hematologic/Lymphatic: Reports as per HPI Allergic/Immunologic: Reports as per HPI Constitutional: Reports as per HPI Past Medical History Past Medical History: Coronary Artery Disease (CAD), COPD, Hyperlipidemia, Hypertension, Rheumatoid Arthritis (RA), Supraventricular Tachycardia (SVT), Thyroid Disorder Additional Past Medical History / Comment(s): CAD post NSTEMI with PCI of the RCA. History of Any Multi-Drug Resistant Organisms: MRSA, Other MDRO Date of last positivie culture/infection: 2006 MDRO Source:: Right leg Past Surgical History: Appendectomy, Section, Cholecystectomy, Heart Catheterization With Stent, Hysterectomy, Joint Replacement Additional Past Surgical History / Comment(s): rt hip replacement 12/16/21 Past Anesthesia/Blood Transfusion Reactions: No Reported Reaction Date of Last Stent Placement:: 12/01 Past Psychological History: No Psychological Hx Reported Additional Psychological History / Comment(s): passed 11/2019 from [employer] now Smoking Status: Current some day smoker Past Alcohol Use History: None Reported Additional Past Alcohol Use History / Comment(s): She denies any marijuana or illicit drug use. Past Drug Use History: None Reported Additional Drug Use History / Comment(s): uses cannibis oil for R/A - Past Family History Father Family Medical History: Cancer Additional Family Medical History / Comment(s): Father at age 51 from lung cancer with metastatic disease. Mother Family Medical History: Rheumatoid Arthritis (RA) Additional Family Medical History / Comment(s): Mother at age 77 from old age but had history of rheumatoid arthritis. Brother(s) Additional Family Medical History / Comment(s): Patient had 1 brother that from complications of agent orange. Daughter(s) Additional Family Medical History / Comment(s): Patient has 3 children with no major medical problems. Sister(s) Family Medical History: Renal Disease, Vascular Disorder Medications and Allergies Home Medications Medication Instructions Recorded Confirmed Type Levothyroxine Sodium [Synthroid] 75 mcg PO DAILY 04/13/17 07/08/22 History ALPRAZolam [Xanax] 0.25 mg PO DAILY PRN 07/08/22 07/08/22 History Metoprolol Succinate (ER) [Toprol 25 mg PO DAILY #30 tab 07/10/22 Rx XL] Nicotine 14Mg/24Hr Patch [Habitrol] 1 patch TRANSDERM DAILY #30 patch 07/10/22 Rx Rivaroxaban [Xarelto] 0 mg PO DAILY 30 Days #30 tab 07/10/22 Rx Allergies Allergy/AdvReac Type Severity Reaction Status Date / Time adhesive tape Allergy Rash/Hives Verified 07/08/22 16:36 iodine Allergy Anaphylaxis Verified 07/08/22 16:36 latex Allergy Rash/Hives Verified 07/08/22 16:36 sulfamethoxazole Allergy Unknown Verified 07/08/22 16:36 [From Bactrim] trimethoprim [From Bactrim] Allergy Unknown Verified 07/08/22 16:36 STEROIDS AdvReac Confusion Uncoded 07/08/22 16:36 Physical Exam Vitals: Vital Signs Temp Pulse Resp BP Pulse Ox 07/10/22 12:00 98 F 65 16 144/73 98 07/10/22 08:12 98.4 F 63 17 157/79 93 L 07/10/22 04:00 69 18 149/75 91 L 07/10/22 02:00 68 16 07/10/22 00:00 68 16 138/70 90 L 07/09/22 20:00 97.9 F 68 16 145/72 90 L Intake and Output 07/10/22 07/10/22 07/10/22 06:59 14:59 22:59 Other: Voiding Method Toilet # Voids 1 2 The patient appeared well nourished and normally developed. Vital signs as documented. Head exam is unremarkable. No scleral icterus or corneal arcus noted. Neck is without jugular venous distension, thyromegaly, or carotid bruits. Carotid upstrokes are brisk bilaterally. Lungs . are diminished breath sounds bilaterally along with prolongation of expiratory phase of breathing and scattered expiratory wheezes throughout the lung [place]. Cardiac exam reveals the PMI to normally sized and situated. Rhythm is regular. First and second heart sounds normal. No murmurs, rubs or gallops. Abdominal exam reveals normal bowel sounds, no masses, no organomegaly and no aortic enlargement. Extremities are nonedematous and both femoral and pedal pulses are normal.Examination of the skin revealed no evidence of significant rashes, suspicious appearing nevi or other concerning lesions. Neurologically the patient is awake and alert and is no focal neurological deficits. Results - Laboratory Findings CBC and BMP: 07/10/22 07:50 07/08/22 16:13 PT/INR, D-dimer PT 10.9 sec (9.0-12.0) 07/08/22 16:13 INR 1.0 (<1.2) 07/08/22 16:13 Abnormal lab findings: Abnormal Labs 07/08/22 07/08/22 07/08/22 16:13 16:13 21:45 MCHC RDW 15.6 H APTT 105.6 H* Potassium 3.3 L Glucose 215 H POC Glucose (mg/dL) Troponin I 07/09/22 07/09/22 07/09/22 11:08 11:08 15:32 MCHC RDW APTT 104.0 H* Potassium Glucose POC Glucose (mg/dL) Troponin I 0.282 H* 0.226 H* 07/10/22 07/10/22 04:46 07:50 MCHC 30.8 L RDW 15.8 H APTT Potassium Glucose POC Glucose (mg/dL) 133 H Troponin I - Diagnostic Findings Chest x-ray: image reviewed Assessment and Plan Plan: COPD, advanced, currently inactive and stable and the patient limited on Trelegy Ellipta on outpatient basis and Proventil rescue inhaler. No signs of an acute exacerbation the patient's chest x-ray is negative for any acute abnormalities Chronic hypoxic respiratory failure and the patient is using O2 on an as-needed basis A. fib, RVR, converted into normal sinus rhythm Elevation of troponin, type II ischemia related to A. fib RVR Coronary artery disease with previous coronary intervention stenting of the RCA Rheumatoid arthritis Hyperlipidemia Hypothyroidism Irritable bowel Ex-smoker Plan Continue to Trelegy Ellipta on outpatient basis Pro-air inhaler as a rescue Chest x-ray findings are nonspecific Patient is a nonsmoker Continue beta blockers Discharge home on long-term to coagulation was also We'll see me in the office if needed regarding his COPD.
--- NOTE | 2022-07-10 19:48 | P.DS ---
Providers Date of admission: 07/08/22 17:31 Attending physician: Felipe Molina MD Consults: 07/08/22 17:29 Consult Physician Routine Consulting Provider: [facility] Consult Reason/Comments: A fib with RVR Do you want consulting provider notified?: Yes, Notify in am 07/10/22 12:41 Consult Physician Urgent Consulting Provider: Dilshad Bear Consult Reason/Comments: mild hypoxia, copd Do you want consulting provider notified?: Yes [facility]: Diagnoses: A. flutter and RVR Left shoulder/chest pain secondary to above resolved. nicotine dependence Mild COPD exacerbation Hypertension Hyperlipidemia History of coronary artery disease status post stent and PCI to the RCA Rheumatoid arthritis and History of SVT Hypothyroidism Course: This is a pleasant 89 is old female with multiple medical problems including coronary artery disease, hypertension, hyperlipidemia, moderate arthritis, status post stent with PCI to the RCA. Presents with palpitation . Patient was found to have A. fib and RVR new-onset patient on metoprolol 25 mg, she started on Eliquis a blood thinner (she previously used previous free coupon) that we have to change him to xarelto 20 mg daily per General Warehouse Worker and co-pay $40 and patient agreeable to that received recall: Through [facility], patient informed and she agrees. Also controls engineer evaluate the patient for her mild hypoxia related to COPD, she does not qualify for home oxygen him a pulmonary she is recommended to continue with inhalers and give her for discharge Other than that patient is back to her baseline, she was walking in the room normally. She denies chest pain or dyspnea. No GI or urinary symptoms, no neurological symptoms Patient was cleared for discharge by sterile processing technician and controls engineer. Problems and management plan were discussed with the patient and he verbalized understanding and acceptance Aspirin was discontinued upon discharge and patient was informed Patient was found stable and can be discharged home in guarded prognosis however he needs follow-up as an outpatient. Patient was instructed to follow up with PCP Dr. Watts within one week and patient agrees Patient was instructed to follow up with sterile processing technician Dr. Adan in 1 week [address] engineer Dr. Bear 10 1-2 weeks and she agrees to make her own appointments as today is weakenedS been discontinued upon discharge per sterile processing technician and patient informed Physical exam Gen: patient is a AAOx3, no distress CVS: S1-S2, RRR, no murmur Lungs: B/L CTA, no wheezing Abdomen: soft, no distention, no tenderness, positive bowel sounds Extremity: no leg edema or induration Time spent more than 35 minutes Patient Condition at Discharge: Stable Plan - Discharge Summary Discharge Rx Participant: Yes New Discharge Prescriptions: New Metoprolol Succinate (ER) [Toprol XL] 25 mg PO DAILY #30 tab Nicotine 14Mg/24Hr Patch [Habitrol] 1 patch TRANSDERM DAILY #30 patch Rivaroxaban [Xarelto] 0 mg PO DAILY 30 Days #30 tab Continue Levothyroxine Sodium [Synthroid] 75 mcg PO DAILY Discontinued Aspirin EC [Ecotrin Low Dose] 81 mg PO DAILY No Action ALPRAZolam [Xanax] 0.25 mg PO DAILY PRN PRN Reason: Anxiety Discharge Medication List Levothyroxine Sodium [Synthroid] 75 mcg PO DAILY 04/13/17 [History] ALPRAZolam [Xanax] 0.25 mg PO DAILY PRN 07/08/22 [History] Metoprolol Succinate (ER) [Toprol XL] 25 mg PO DAILY #30 tab 07/10/22 [Rx] Nicotine 14Mg/24Hr Patch [Habitrol] 1 patch TRANSDERM DAILY #30 patch 07/10/22 [Rx] Rivaroxaban [Xarelto] 0 mg PO DAILY 30 Days #30 tab 07/10/22 [Rx] Follow up Appointment(s)/Referral(s): Alan Adan DO [STAFF PHYSICIAN] - 1 Week Jeramie Watts DO [Primary Care Provider] - 1-2 days Dilshad Bear MD [STAFF PHYSICIAN] - 2 Weeks Patient Instructions/Handouts: A-fib (Atrial Fibrillation) (DC) Activity/Diet/Wound Care/Special Instructions: copay $90 for eliquis you have to go to [facility] to obtain one month free coupon for eliquis x 1 month, please follow up with your primary care doctor and sterile processing technician in one week for further anticoagulation management heart healthy diet activity is restricted till you see your doctor Discharge Disposition: HOME SELF-CARE
--- NOTE | 2022-07-13 08:50 | CDI ---
Documentation Clarification Form Date: 07/13/2022 08:36:00 AM From: Briseida Dixon Admit Date: 07/08/2022 05:31:00 PM Patient Name: Soila Mccullough Visit Number: [id number] Discharge Date: 07/10/2022 02:54:00 PM ATTENTION: The Clinical Documentation Specialists (CDI) and [facility] Coding Staff appreciate your assistance in clarifying documentation. Please respond to the clarification below the line at the bottom and electronically sign. The CDI & [facility] Coding staff will review the response and follow-up if needed. Please note: Queries are made part of the Legal Health Record. If you have any questions, please contact the author of this message via ITS. Dr. Merlos E Mj Type 2 LA related to AFib is documented in Cardiology Progress Note 07/10. This diagnosis is not carried to the [facility]. Additional clarification is needed whether patient had a type 2 LA or was this ruled out. Patient History/Risk Factors: Atrial Fibrillation and atrial flutter Clinical Indicators: Troponin: .282 .226 EKG Results: Moderate T wave abnormality Treatment: Metoprolol Continue with Eliquis Please clarify if patient had a type 2 LA due to atrail fib or was this ruled out. [ ] Type 2 LA due to Atrial Fib [ ] Type 2 LA ruled out [ ] Unable to determine [ ] Other Condition, please specify (Template Last Revised: October 2020) per hardware engineer note on 07/10 ( NSTEMI, type 2 mechanism related to AFib with RVR) SHIN
== END 2022-07-10 14:54 | disposition home or self-care (01) ==
LOC: EC 15:47 → INTOOBSV 17:31 → 3SCARD 17:31 → UNDODISIN 07-10 14:54
PROVIDERS: ADMIT Internal Medicine; ATTEND Internal Medicine
DX: I48.91 Unspecified atrial fibrillation (principal); I21.A1 Myocardial infarction type 2; J44.1 Chronic obstructive pulmonary disease with (acute) exacerbation; E87.6 Hypokalemia; J96.11 Chronic respiratory failure with hypoxia; I48.92 Unspecified atrial flutter; I25.10 Atherosclerotic heart disease of native coronary artery without angina pectoris; I47.1 Supraventricular tachycardia; M06.9 Rheumatoid arthritis, unspecified; E78.5 Hyperlipidemia, unspecified; E03.9 Hypothyroidism, unspecified; I25.2 Old myocardial infarction; F17.210 Nicotine dependence, cigarettes, uncomplicated; I10 Essential (primary) hypertension; K58.9 Irritable bowel syndrome, unspecified; Z60.2 Problems related to living alone; E66.9 Obesity, unspecified; Z68.26 Body mass index [BMI] 26.0-26.9, adult; Z79.01 Long term (current) use of anticoagulants; Z79.82 Long term (current) use of aspirin; Z79.890 Hormone replacement therapy; Z91.040 Latex allergy status; Z88.2 Allergy status to sulfonamides; Z88.8 Allergy status to other drugs, medicaments and biological substances; Z88.1 Allergy status to other antibiotic agents; Z91.048 Other nonmedicinal substance allergy status; Z86.14 Personal history of Methicillin resistant Staphylococcus aureus infection; Z71.6 Tobacco abuse counseling; Z90.49 Acquired absence of other specified parts of digestive tract; Z98.891 History of uterine scar from previous surgery; Z95.5 Presence of coronary angioplasty implant and graft; Z90.710 Acquired absence of both cervix and uterus; Z96.641 Presence of right artificial hip joint; Z82.61 Family history of arthritis; Z80.1 Family history of malignant neoplasm of trachea, bronchus and lung; Z84.1 Family history of disorders of kidney and ureter; Z82.49 Family history of ischemic heart disease and other diseases of the circulatory system
CPT/HCPCS: 99291; 96376 ×2; 96366 ×2; 96375; 96368 ×2; 96365; 36415; 94640 ×2; 93005; 97161; 97166; 83880; 80053; 84443; 84484 ×2; 85025 ×2; 85610; 85730 ×2; 81003; 71046; G0378 ×3; S4990 ×3; J1644 ×3

== ENCOUNTER 2022-07-18 16:48 | Emergency (ER) | payer MEDICARE ==
[2022-07-18 16:59] VITALS: RESP 18; TEMP 97.8
[2022-07-18] MEDS ORDERED: predniSONE 20 MG TAB PO STA (17:40)
[2022-07-18] MEDS ORDERED: KETOROLAC 15 MG/ML 1 ML VIAL IM STA (17:40)
[2022-07-18] MEDS ORDERED: methocarbamoL 750 MG TAB PO STA (17:40)
[2022-07-18] MEDS ORDERED: LIDOCAINE 5% PATCH TOPICAL SCH (17:45)
--- NOTE | 2022-07-18 18:40 | XR ---
EXAMINATION TYPE: XR knee complete RT DATE OF EXAM: 07/18/2022 COMPARISON: NONE HISTORY: Knee pain TECHNIQUE: 3 views FINDINGS: There is no fracture nor dislocation. There is slight narrowing of the lateral joint space. No sign of joint effusion. IMPRESSION: Mild lateral joint space narrowing. No fracture.
--- NOTE | 2022-07-18 18:57 | US ---
EXAMINATION TYPE: US venous doppler duplex LE RT DATE OF EXAM: 07/18/2022 6:43 PM COMPARISON: NONE CLINICAL HISTORY: Pain, swelling, r/o DVT. Pain SIDE PERFORMED: Right TECHNIQUE: The lower extremity deep venous system is examined utilizing real time linear array sonog lottie with graded compression, doppler sonography and color-flow sonography. VESSELS IMAGED: Common Femoral Vein Deep Femoral Vein Greater Saphenous Vein * Femoral Vein Popliteal Vein Small Saphenous Vein * Proximal Calf Veins (* superficial vessels) Complex area medial Popliteal area 2.7 x 1.2 x 1.5 cm. Right Leg: Negative for DVT IMPRESSION: No evidence of deep vein thrombosis in the right leg. There is popliteal cyst noted.
--- NOTE | 2022-07-18 19:21 | ED ---
General Adult HPI - General Chief complaint: Extremity Injury, Lower Stated complaint: Right hip pain Time Seen by Provider: 07/18/22 16:49 Source: patient, EMS Mode of arrival: EMS Limitations: no limitations - History of Present Illness Initial comments: This is a 71-year-old female with a past medical history including rheumatoid arthritis presents emergency department for right posterior hip pain as well as right knee swelling. The patient stated that she was at [employer] today and stated that she noted that her knee with swelling when she woke up however did not have any acute pain. The patient stated that when she arrived back home after [employer]aeism she noted sharp shooting pains ever intermittent down the right leg originating from the posterior right buttock. The patient denied any trauma to this area but stated that because the pain was persistent she came to the emergency department for evaluation. The patient denied any other acute pain or complaints and denied any fevers and chills at this time. - Related Data Home Medications Medication Instructions Recorded Confirmed Levothyroxine Sodium [Synthroid] 75 mcg PO DAILY 04/13/17 07/18/22 ALPRAZolam [Xanax] 0.25 mg PO DAILY PRN 07/08/22 07/18/22 Nicotine 14Mg/24Hr Patch [Habitrol] 1 patch TRANSDERM DAILY PRN 07/18/22 07/18/22 Rivaroxaban [Xarelto] 20 mg PO DAILY 07/18/22 07/18/22 Previous Rx's Medication Instructions Recorded Metoprolol Succinate (ER) [Toprol 25 mg PO DAILY #30 tab 07/10/22 XL] Lidocaine 5% Patch [Lidoderm 5% 1 patch TOPICAL DAILY #14 patch 07/18/22 Patch] Naproxen [EC-Naproxen] 500 mg PO BID #30 tab 07/18/22 methocarbamoL [Robaxin-750] 750 mg PO TID #52 tab 07/18/22 predniSONE [Deltasone] 40 mg PO DAILY #8 tab 07/18/22 Allergies Allergy/AdvReac Type Severity Reaction Status Date / Time adhesive tape Allergy Rash/Hives Verified 07/18/22 19:24 iodine Allergy Anaphylaxis Verified 07/18/22 19:24 latex Allergy Rash/Hives Verified 07/18/22 19:24 sulfamethoxazole Allergy Unknown Verified 07/18/22 19:24 [From Bactrim] trimethoprim [From Bactrim] Allergy Unknown Verified 07/18/22 19:24 STEROIDS Allergy Confusion Uncoded 07/18/22 19:24 Review of Systems ROS Statement: Those systems with pertinent positive or pertinent negative responses have been documented in the HPI. ROS Other: All systems not noted in ROS Statement are negative. Past Medical History Past Medical History: Atrial Fibrillation, Coronary Artery Disease (CAD), COPD, Hyperlipidemia, Hypertension, Rheumatoid Arthritis (RA), Supraventricular Tachycardia (SVT), Thyroid Disorder Additional Past Medical History / Comment(s): CAD post NSTEMI with PCI of the RCA. History of Any Multi-Drug Resistant Organisms: MRSA, Other MDRO Date of last positivie culture/infection: 2006 MDRO Source:: Right leg Past Surgical History: Appendectomy, Section, Cholecystectomy, Heart Catheterization With Stent, Hysterectomy, Orthopedic Surgery Additional Past Surgical History / Comment(s): rt hip replacement 12/16/21 Past Anesthesia/Blood Transfusion Reactions: No Reported Reaction Date of Last Stent Placement:: 12/01 Past Psychological History: No Psychological Hx Reported Smoking Status: Current every day smoker Past Alcohol Use History: None Reported Past Drug Use History: None Reported - Past Family History Father Family Medical History: Cancer Additional Family Medical History / Comment(s): Father at age 51 from lung cancer with metastatic disease. Mother Family Medical History: Rheumatoid Arthritis (RA) Additional Family Medical History / Comment(s): Mother at age 77 from old age but had history of rheumatoid arthritis. Brother(s) Additional Family Medical History / Comment(s): Patient had 1 brother that from complications of agent orange. Daughter(s) Additional Family Medical History / Comment(s): Patient has 3 children with no major medical problems. Sister(s) Family Medical History: Renal Disease, Vascular Disorder General Exam Limitations: no limitations General appearance: alert, in no apparent distress Head exam: Present: atraumatic, normocephalic Eye exam: Present: normal appearance, PERRL Pupils: Present: normal accommodation ENT exam: Present: normal exam, normal oropharynx, mucous membranes moist Neck exam: Present: normal inspection, full ROM Respiratory exam: Present: normal lung sounds bilaterally Cardiovascular Exam: Present: regular rate, normal rhythm, normal heart sounds GI/Abdominal exam: Present: soft, normal bowel sounds Extremities exam: Present: normal inspection, tenderness (Tenderness noted to the right lateral aspect of the right knee with minimal swelling noted. There was also tenderness noted to the popliteal area on the right without any obvious signs of swelling. There was some increased size of the right lower extremity versus the left), other (Tenderness to palpation and reproducible pain to the right posterior sciatic notch) Back exam: Present: normal inspection, full ROM Neurological exam: Present: alert, oriented X3, CN II-XII intact Psychiatric exam: Present: normal affect, normal mood Skin exam: Present: warm, dry Course Vital Signs 07/18/22 07/18/22 16:54 19:34 Temperature 97.8 F Pulse Rate 75 73 Respiratory 18 18 Rate Blood Pressure 148/81 141/83 O2 Sat by Pulse 94 L 95 Oximetry Medical Decision Making - Medical Decision Making The patient was seen and evaluated in the emergency department. Physical exam, the patient was resting in bed without any acute distress. The patient did have intermittent shooting pains down the right lower extremity likely consistent with sciatic nerve pain. An x-ray of the right knee and an ultrasound of the right lower extremity to rule out a DVT were obtained. X-ray of the right knee was interpreted by myself and showed mild lateral joint space narrowing with no fracture noted. The duplex ultrasound the right lower extremity was also interpreted by myself and showed no evidence of DVT in the right leg. There was a popliteal cyst noted however. The patient was given Toradol, Robaxin, lidocaine and prednisone for her sciatic nerve pain. On re evaluation, the patient stated that she had some mild improvement however due to the negative workup was seems still for discharge. The patient prescription for Robaxin, naproxen and Lidoderm patches as well as the remaining 4 days of prednisone sent to the pharmacy. The patient was advised to take his medication as prescribed and to follow-up with her primary care physician for further workup and evaluation. The patient was also told to report back to the emergency department if her pain became acutely worse. The patient was agreeable to this and all of her questions were answered. The patient was able to inflate throughout the emergency department without any acute assistance and was discharged home in stable condition. Disposition Clinical Impression: Sciatica, Knee pain, Popliteal cyst Disposition: HOME SELF-CARE Condition: Stable Instructions (If sedation given, give patient instructions): Sciatica (ED), Zimmerman Cyst (ED), Knee Pain (ED) Prescriptions: predniSONE [Deltasone] 40 mg PO DAILY #8 tab Naproxen [EC-Naproxen] 500 mg PO BID #30 tab Lidocaine 5% Patch [Lidoderm 5% Patch] 1 patch TOPICAL DAILY #14 patch methocarbamoL [Robaxin-750] 750 mg PO TID #52 tab Is patient prescribed a controlled substance at d/c from ED?: No Referrals: Jeramie Watts DO [Primary Care Provider] - 1-2 days Time of Disposition: 19:20
[2022-07-18 19:40] VITALS: BP 141/83; PULSE 73
== END 2022-07-18 19:41 | disposition home or self-care (01) ==
LOC: EC 16:48
DX: M54.31 Sciatica, right side (principal); M71.21 Synovial cyst of popliteal space [Baker], right knee; I48.91 Unspecified atrial fibrillation; J44.9 Chronic obstructive pulmonary disease, unspecified; I25.10 Atherosclerotic heart disease of native coronary artery without angina pectoris; I10 Essential (primary) hypertension; E07.9 Disorder of thyroid, unspecified; F17.200 Nicotine dependence, unspecified, uncomplicated; Z79.890 Hormone replacement therapy; Z79.01 Long term (current) use of anticoagulants; Z91.09 Other allergy status, other than to drugs and biological substances; Z91.040 Latex allergy status; Z91.041 Radiographic dye allergy status; Z88.2 Allergy status to sulfonamides; Z88.8 Allergy status to other drugs, medicaments and biological substances
CPT/HCPCS: 73562; 93971; 99284; 96372; J1885; J7512

== ENCOUNTER 2022-07-27 08:36 | Inpatient (IN) | payer MEDICARE ==
[2022-07-27] MEDS ORDERED: SODIUM CHLORIDE 0.9% 1,000 ML IV STA (08:42)
[2022-07-27] MEDS ORDERED: SODIUM CHLORIDE 0.9% 500 ML 500 ML IV STA (08:42)
[2022-07-27] MEDS ORDERED: DILTIAZEM DRIP BOLUS FROM BAG 1 MG SOLN IV ONE (08:45)
--- NOTE | 2022-07-27 08:55 | ED ---
Chest Pain HPI - General Chief Complaint: Chest Pain Stated Complaint: AFib Time Seen by Provider: 07/27/22 08:36 Source: patient, EMS, RN notes reviewed, old records reviewed Mode of arrival: EMS Limitations: no limitations - History of Present Illness Initial Comments: 71-year-old female with a history of [place] and stents as well as A. fib in the past who woke up this morning with complaints of back pain achy in nature 4-5/10 severity and was noted have an elevated heart rate. EMS was called she was noted be in A. fib with RVR she did convert to a sinus rhythm but back into A. fib RVR and route to. She states the pain is her with her heart rate is fast. No nausea no vomiting no cough phlegm production - Related Data Home Medications Medication Instructions Recorded Confirmed Levothyroxine Sodium [Synthroid] 75 mcg PO DAILY 04/13/17 07/27/22 Rivaroxaban [Xarelto] 20 mg PO HS 07/18/22 07/27/22 Previous Rx's Medication Instructions Recorded Metoprolol Succinate (ER) [Toprol 25 mg PO DAILY #30 tab 07/10/22 XL] Allergies Allergy/AdvReac Type Severity Reaction Status Date / Time adhesive tape Allergy Rash/Hives Verified 07/27/22 09:59 iodine Allergy Anaphylaxis Verified 07/27/22 09:59 latex Allergy Rash/Hives Verified 07/27/22 09:59 sulfamethoxazole Allergy Unknown Verified 07/27/22 09:59 [From Bactrim] trimethoprim [From Bactrim] Allergy Unknown Verified 07/27/22 09:59 STEROIDS AdvReac Confusion Uncoded 07/27/22 09:59 Review of Systems ROS Statement: Those systems with pertinent positive or pertinent negative responses have been documented in the HPI. ROS Other: All systems not noted in ROS Statement are negative. EKG Findings - EKG Results: EKG: interpreted by ERMMing (My interpretation the EKG showed evidence of a sinus rhythm with frequent supraventricular premature complexes rate 77 MD interval 128 QRS duration 83 QT since QTC 305/[address] configuration) Past Medical History Past Medical History: Atrial Fibrillation, Coronary Artery Disease (CAD), COPD, Hyperlipidemia, Hypertension, Rheumatoid Arthritis (RA), Supraventricular Tachycardia (SVT), Thyroid Disorder Additional Past Medical History / Comment(s): CAD post NSTEMI with PCI of the RCA. History of Any Multi-Drug Resistant Organisms: MRSA, Other MDRO Date of last positivie culture/infection: 2006 MDRO Source:: Right leg Past Surgical History: Appendectomy, Section, Cholecystectomy, Heart Catheterization With Stent, Hysterectomy, Orthopedic Surgery Additional Past Surgical History / Comment(s): rt hip replacement 12/16/21 Past Anesthesia/Blood Transfusion Reactions: No Reported Reaction Date of Last Stent Placement:: 12/01 Past Psychological History: No Psychological Hx Reported Smoking Status: Current every day smoker Past Alcohol Use History: None Reported Past Drug Use History: None Reported - Past Family History Father Family Medical History: Cancer Additional Family Medical History / Comment(s): Father at age 51 from lung cancer with metastatic disease. Mother Family Medical History: Rheumatoid Arthritis (RA) Additional Family Medical History / Comment(s): Mother at age 77 from old age but had history of rheumatoid arthritis. Brother(s) Additional Family Medical History / Comment(s): Patient had 1 brother that from complications of agent orange. Daughter(s) Additional Family Medical History / Comment(s): Patient has 3 children with no major medical problems. Sister(s) Family Medical History: Renal Disease, Vascular Disorder General Exam - General Exam Comments Initial Comments: This is a well-developed well-nourished awake alert oriented 4 female Limitations: no limitations General appearance: alert, anxious Head exam: Present: atraumatic, normocephalic, normal inspection Eye exam: Present: normal appearance, PERRL, EOMI. Absent: scleral icterus, conjunctival injection, periorbital swelling ENT exam: Present: mucous membranes dry Neck exam: Present: normal inspection, full ROM, other (No stridor JVD or bruits). Absent: tenderness, meningismus, lymphadenopathy Respiratory exam: Present: normal lung sounds bilaterally. Absent: respiratory distress, wheezes, rales, rhonchi, stridor Cardiovascular Exam: Present: irregular rhythm. Absent: systolic murmur, diastolic murmur, rubs, gallop, clicks GI/Abdominal exam: Present: soft, normal bowel sounds. Absent: distended, tenderness, guarding, rebound, rigid Extremities exam: Present: full ROM, normal capillary refill, pedal edema (Trace edema). Absent: tenderness, joint swelling, calf tenderness Back exam: Present: normal inspection Neurological exam: Present: alert, oriented X3, CN II-XII intact Psychiatric exam: Present: normal affect, normal mood Skin exam: Present: warm, dry, intact, normal color. Absent: rash Course Vital Signs 07/27/22 07/27/22 07/27/22 08:39 08:55 09:00 Temperature 98.3 F Pulse Rate 72 168 H Respiratory 20 18 Rate Blood Pressure 98/86 107/74 O2 Sat by Pulse 96 Oximetry 07/27/22 07/27/22 07/27/22 09:13 09:16 09:30 Temperature Pulse Rate 71 70 65 Respiratory 16 18 18 Rate Blood Pressure 107/74 112/66 112/66 O2 Sat by Pulse 96 96 94 L Oximetry 07/27/22 07/27/22 07/27/22 10:00 10:15 10:30 Temperature Pulse Rate 70 64 64 Respiratory 18 18 18 Rate Blood Pressure 106/61 105/61 105/61 O2 Sat by Pulse 97 95 93 L Oximetry - Reevaluation(s) Reevaluation #1: 07/27/22 09:17 After IV Cardizem the patient's rate has improved to the 70s and appears be sinus at this time her pain has resolved. She is much more comfortable. Reevaluation #2: 07/27/22 10:49 Repeat EKG after the initial one showed a atrial fibrillation interpreted by me. There was a rapid ventricular response rate of 157 QRS yarsani 81 daily since QTC to 53/341 possible RV conduction delay. Evidence of ST depression in V3 through V6 as well as the inferior leads. Reevaluation #3: 07/27/22 10:50 Post conversion EKG interpreted by me shows sinus rhythm a 63 MD interval 135 QRS duration 80 QT since QTC 423/[address] configuration he does appear to be some improvement in the ST depressions from the previous EKG. Chest Pain MDM - MDM I did review the imaging no acute processes are seen at this time. I did discuss the case with the patient and family members as well as Dr. Villarreal. Patient will be admitted for inpatient evaluation and treatment of chest pain unstable angina and atrial fibrillation with a rapid ventricular response rate. It have admission the patient was pain-free and in a sinus rhythm. Critical Care Time Critical Care Time: Yes Total Critical Care Time: 39 Critical Care Time: Critical care time includes initial presentation with history physical labs x- rays discussed with paramedics on arrival frequent reevaluation the patient response to therapy review of old charting was available discussed with the patient and family as well as the admitting physician admission orders and documentation the above. Disposition Clinical Impression: Unstable angina pectoris, Atypical chest pain, Rapid atrial fibrillation Disposition: ADMITTED IP TO THIS [facility] Condition: Stable Referrals: Jeramie Watts DO [Primary Care Provider] - 1-2 days Decision Date: 07/27/22 Decision Time: 10:40
[2022-07-27 09:04] LABS: Basophils # (A) 0.1 k/uL (0-0.2); Basophils % (A) 1 %; Eosinophils # (A) 0.3 k/uL (0-0.7); Eosinophils % (A) 3 %; HCT 37.9 % (34.0-46.0); Hypochromasia Moderate; Lymphocytes # (A) 2.1 k/uL (1.0-4.8); Lymphocytes % (A) 23 %; MCH 25.5 pg (25.0-35.0); MCHC 31.7 g/dL (31.0-37.0); MCV 80.4 fL (80.0-100.0); Mean Platelet Volume 7.7; Monocytes # (A) 0.6 k/uL (0-1.0); Monocytes % (A) 7 %; Neutrophils # (A) 6.2 k/uL (1.3-7.7); Neutrophils % (A) 66 %; Platelet Count 304 k/uL (150-450); RBC 4.71 m/uL (3.80-5.40); RDW 15.2 % (11.5-15.5); WBC 9.5 k/uL (3.8-10.6)
[2022-07-27 09:13] LABS: Partial Thromboplastin Time 25.2 sec (22.0-30.0); Prothrombin Time 10.3 sec (9.0-12.0)
[2022-07-27] MEDS ORDERED: DILTIAZEM 125 MG in SODIUM CHLORIDE 0.9% 100 ML IV SCH (09:15)
[2022-07-27 09:16] LABS: ALT 20 U/L (4-34); African American GFR (CKD) >90 (>60 ml/min/1.73 sqM); Anion Gap 5 mmol/L; Blood Urea Nitrogen 11 mg/dL (7-17); Carbon Dioxide 26 mmol/L (22-30); Chloride 107 mmol/L (98-107); Lipase 85 U/L (23-300); Non-African American GFR(CKD) >90 (>60 ml/min/1.73 sqM); Sodium 138 mmol/L (137-145)
[2022-07-27 09:17] LABS: Calcium 7.9 mg/dL (8.4-10.2); Glucose 124 mg/dL (74-99); Total Bilirubin 0.7 mg/dL (0.2-1.3)
[2022-07-27 09:28] LABS: AST 33 U/L (14-36); Albumin 3.6 g/dL (3.5-5.0); Alkaline Phosphatase 81 U/L (38-126); Magnesium 1.6 mg/dL (1.6-2.3); Potassium 4.2 mmol/L (3.5-5.1); Total Protein 6.8 g/dL (6.3-8.2)
--- NOTE | 2022-07-27 09:57 | XR ---
EXAMINATION TYPE: XR chest 2V DATE OF EXAM: 07/27/2022 COMPARISON: 08/07/2022 TECHNIQUE: PA and lateral views submitted. HISTORY: Chest pain FINDINGS: The lungs are clear and there is no pneumothorax, pleural effusion, or focal pneumonia. Heart size normal. Hyperinflation suggests COPD. Diffuse osteopenia. Atherosclerotic change aorta. Degenerative changes spine. IMPRESSION: 1. No acute process. Correlate for COPD.
[2022-07-27] MEDS ORDERED: NITROGLYCERIN SL TABS 0.4 MG TAB SUBLINGUAL PRN (10:53)
[2022-07-27] MEDS: SODIUM CHLORIDE 0.9% 1,000 ML IV SCH (11:06)
--- NOTE | 2022-07-27 12:26 | P.CRDCN ---
History of Present Illness Consult date: 07/27/22 History of present illness: Consult The patient is a 71-year-old female, followed by Dr. Adan, with a history of CAD status post stenting of the RCA history of COPD and paroxysmal atrial fibrillation. She woke up this morning with palpitations, unsteadiness and sev ere back discomfort as well as worsening dyspnea. Came into the emergency room and was noted to be in atrial fibrillation with rapid ventricular response. She is back in sinus mechanism at this time. She was in the hospital in June I doubt that is giving with similar symptoms and subsequently converted to sinus mechanism. She has underwent a stress test according to her in the office recen mahesh but the records are not available. In December of this year she had no evidence of stress-induced ischemia and her left ventricle systolic function by echocardiography was normal. The patient is not active physically, she has dyspnea on exertion. She denies any PND or orthopnea. She has occasional peripheral edema on the right side. She denies any syncope but she has the palpitations and she feels dizzy at times. She underwent stenting of her RCA in [place] [address] Encarnacion using a 5.0 bare metal stent. Her coronary risk factors are positive for hypertension, hyperlipidemia and chronic tobacco use she smokes at least half a pack a day. Medications: Toprol-XL 25 mg daily, levothyroxine,Xarelto 20 mg daily Review of system: Respiratory status: She has chronic dyspnea on exertion with prior history of COPD GI: She denies any GI bleeding, no nausea or vomiting system: She has no dysuria or hematuria Nervous system she has no history of stroke or seizure. PHYSICAL EXAMINATION: 71-year-old female, alert oriented no apparent distress. Blood pressure 105/60 heart rate 60 Head: Normocephalic Eyes: Sclerae nonicteric Neck: Good carotid upstroke with no bruit or JVD LUNGS: Decreased air exchange bilaterally with no wheezes HEART: Regular rate and rhythm, S1, S2. No S3. No systolic murmur ABDOMEN: Soft, nontender, no organomegaly EXTREMETIES: No edema LAB: Hemoglobin of 12, potassium 4.2, BUN 11, creatinine 0.59. Troponin less than 0.012. NT proBNP 441. EKG: Atrial fibrillation with rapid ventricle response and nonspecific ST-T wave changes subsequently sinus mechanism with occasional PACs with nonspecific ST-T wave changes IMPRESSION: 1. Paroxysmal atrial fibrillation, back in sinus mechanism, anticoagulated 2. History of CAD with no evidence of acute coronary syndrome 3. Chronic tobacco use with COPD 4. History of hypertension PLAN: 1. Start amiodarone 2. Continue anticoagulation 3. Increase beta jp 4. Add statin 5. The importance of smoking cessation was discussed with the patient and her daughter 6. Depending on her progress further recommendations will be made, thank you for this consult we will follow with you. Past Medical History Past Medical History: Atrial Fibrillation, Coronary Artery Disease (CAD), COPD, Hyperlipidemia, Hypertension, Rheumatoid Arthritis (RA), Supraventricular Tachycardia (SVT), Thyroid Disorder Additional Past Medical History / Comment(s): CAD post NSTEMI with PCI of the RCA. History of Any Multi-Drug Resistant Organisms: MRSA, Other MDRO Date of last positivie culture/infection: 2006 MDRO Source:: Right leg Past Surgical History: Appendectomy, Section, Cholecystectomy, Heart Catheterization With Stent, Hysterectomy, Orthopedic Surgery Additional Past Surgical History / Comment(s): rt hip replacement 12/16/21 Past Anesthesia/Blood Transfusion Reactions: No Reported Reaction Date of Last Stent Placement:: 12/01 Past Psychological History: No Psychological Hx Reported Smoking Status: Current every day smoker Past Alcohol Use History: None Reported Past Drug Use History: None Reported - Past Family History Father Family Medical History: Cancer Additional Family Medical History / Comment(s): Father at age 51 from lung cancer with metastatic disease. Mother Family Medical History: Rheumatoid Arthritis (RA) Additional Family Medical History / Comment(s): Mother at age 77 from old age but had history of rheumatoid arthritis. Brother(s) Additional Family Medical History / Comment(s): Patient had 1 brother that from complications of agent orange. Daughter(s) Additional Family Medical History / Comment(s): Patient has 3 children with no major medical problems. Sister(s) Family Medical History: Renal Disease, Vascular Disorder Medications and Allergies Home Medications Medication Instructions Recorded Confirmed Type Levothyroxine Sodium [Synthroid] 75 mcg PO DAILY 04/13/17 07/27/22 History Metoprolol Succinate (ER) [Toprol 25 mg PO DAILY #30 tab 07/10/22 07/27/22 Rx XL] Rivaroxaban [Xarelto] 20 mg PO HS 07/18/22 07/27/22 History Allergies Allergy/AdvReac Type Severity Reaction Status Date / Time adhesive tape Allergy Rash/Hives Verified 07/27/22 09:59 iodine Allergy Anaphylaxis Verified 07/27/22 09:59 latex Allergy Rash/Hives Verified 07/27/22 09:59 sulfamethoxazole Allergy Unknown Verified 07/27/22 09:59 [From Bactrim] trimethoprim [From Bactrim] Allergy Unknown Verified 07/27/22 09:59 STEROIDS AdvReac Confusion Uncoded 07/27/22 09:59 Physical Exam Vitals: Vital Signs Temp Pulse Resp BP Pulse Ox 07/27/22 10:30 64 18 105/61 93 L 07/27/22 10:15 64 18 105/61 95 07/27/22 10:00 70 18 106/61 97 07/27/22 09:30 65 18 112/66 94 L 07/27/22 09:16 70 18 112/66 96 07/27/22 09:13 71 16 107/74 96 07/27/22 09:00 107/74 07/27/22 08:55 168 H 18 07/27/22 08:39 98.3 F 72 20 98/86 96 Intake and Output 07/26/22 07/27/22 07/27/22 22:59 06:59 14:59 Other: Weight 77.201 kg Results 07/27/22 08:46 07/27/22 08:46 Cardiac Enzymes 07/27/22 07/27/22 Range/Units 08:46 08:46 AST 33 (14-36) U/L Troponin I <0.012 (0.000-0.034) ng/mL Coagulation 07/27/22 Range/Units 08:46 PT 10.3 (9.0-12.0) sec APTT 25.2 (22.0-30.0) sec CBC 07/27/22 Range/Units 08:46 WBC 9.5 (3.8-10.6) k/uL RBC 4.71 (3.80-5.40) m/uL Hgb 12.0 (11.4-16.0) gm/dL Hct 37.9 (34.0-46.0) % Plt Count 304 (150-450) k/uL Comprehensive Metabolic Panel 07/27/22 Range/Units 08:46 Sodium 138 (137-145) mmol/L Potassium 4.2 (3.5-5.1) mmol/L Chloride 107 (98-107) mmol/L Carbon Dioxide 26 (22-30) mmol/L BUN 11 (7-17) mg/dL Creatinine 0.59 (0.52-1.04) mg/dL Glucose 124 H (74-99) mg/dL Calcium 7.9 L (8.4-10.2) mg/dL AST 33 (14-36) U/L ALT 20 (4-34) U/L Alkaline Phosphatase 81 (38-126) U/L Total Protein 6.8 (6.3-8.2) g/dL Albumin 3.6 (3.5-5.0) g/dL Current Medications Generic Name Dose Route Start Last Admin Trade Name Freq PRN Reason Stop Dose Admin Aspirin 325 mg 07/28/22 09:00 Aspirin 325 Mg Tab PO DAILY [facility] Sodium Chloride 1,000 mls @ 130 mls/hr 07/27/22 08:42 07/27/22 09:08 Saline 0.9% IV 07/27/22 16:23 130 mls/hr .[id number] STA Administration Diltiazem HCl 125 mg/ Sodium 125 mls @ 5 mls/hr 07/27/22 09:15 07/27/22 09:11 Chloride IV 5 mg/hr .Q24H DONAVON 5 mls/hr Administration 5 MG/HR Sodium Chloride 1,000 mls @ 20 mls/hr 07/27/22 11:00 07/27/22 11:06 Saline 0.9% IV Not Given .Q24H DONAVON Levothyroxine Sodium 75 mcg 07/28/22 06:30 Levothyroxine 75 Mcg Tab PO DAILY@0630 [facility] Metoprolol Succinate 25 mg 07/28/22 09:00 Metoprolol Succinate (Er) 25 Mg Tab.Er.24h PO DAILY DONAVON Nitroglycerin 0.4 mg 07/27/22 10:53 Nitroglycerin Sl Tabs 0.4 Mg Tab SUBLINGUAL Q5M PRN Chest Pain Rivaroxaban 20 mg 07/27/22 21:00 Rivaroxaban 20 Mg Tab PO HS [facility] Protocol Intake and Output 07/26/22 07/27/22 07/27/22 22:59 06:59 14:59 Other: Weight 77.201 kg Patient Weight 07/28/22 06:59 Weight 77.201 kg 07/27/22 08:46 07/27/22 08:46
[2022-07-27] MEDS: ATORVASTATIN 40 MG TAB PO SCH (14:02)
[2022-07-27] MEDS: AMIODARONE 200 MG TAB PO SCH ×2 (14:02→19:51)
--- NOTE | 2022-07-27 14:36 | HP ---
HISTORY AND PHYSICAL CHIEF COMPLAINT: Chest pain. HISTORY OF PRESENT ILLNESS: This is a 71-year-old woman with past medical history of atrial fibrillation, CAD, and multiple other medical issues, was complaining of some back pain and chest pain. Subsequently, the patient came to [facility], atrial fibrillation with fast ventricular rate was noted, ST depression was also noted when the rate is high. The patient is being closely monitored. Heart rate is improved at this time. There is no history of any fever, rigors, or chills. Troponins are negative so far. The patient had a stress test last Tuesday, the results are not available at this time. PAST MEDICAL HISTORY: Reviewed include atrial fibrillation, CAD, rest of the history and rest of the chart is also reviewed. HOME MEDICATIONS: Reviewed include Xarelto, dose and rest of medications reviewed. ALLERGIES: Reviewed include tape. FAMILY HISTORY: History of cancer. SOCIAL HISTORY: History of smoking. REVIEW OF SYSTEMS: A 14-point review is negative as mentioned earlier. PHYSICAL EXAMINATION: VITAL SIGNS: Pulse is 70, blood pressure 106/61, respirations 18. HEENT: Conjunctivae normal. NECK: No jugular venous distention. CARDIOVASCULAR: S1, S2 muffled RESPIRATIONS: Diminished at the bases. No rhonchi, no crackles. ABDOMEN: Soft, nontender. LEGS: No edema. NERVOUS SYSTEM: No focal deficits. SKIN: No ulcer, rash, or bleeding. JOINTS: No active deforming arthropathy. LABS: Reviewed. EKG reviewed personally. ASSESSMENT: 1. Chest pain, possible unstable angina. 2. Atrial fibrillation with fast ventricular rate. 3. STT changes in the EKG. 4. PVCs. 5. History of atrial fibrillation. 6. Chronic obstructive pulmonary disease. 7. Multiple medical issues. RECOMMENDATIONS: This is a 71-year-old woman who presented with multiple complex medical issues, we will monitor the patient closely. Continue the current medications, symptomatic treatment. Otherwise, the patient will be started on Cardizem, beta blockers. The patient is already on Xarelto. Cardiology consultation, troponins. Resume the home medications once they are confirmed. Prognosis guarded because of multiple complex medical issues. We will also check the results of the stress test which was done on Tuesday. Further recommendations to follow. MMODL / IJN: [id number] /
[2022-07-27] MEDS: NICOTINE 21MG/24HR PATCH TRANSDERM SCH (17:14)
[2022-07-27] MEDS: METOPROLOL SUCCINATE (ER) 25 MG TAB.ER.24H PO SCH (19:51)
[2022-07-27] MEDS ORDERED: RIVAROXABAN 20 MG TAB PO SCH (21:00)
[2022-07-27] MEDS ORDERED: ONDANSETRON 4 MG/2 ML VIAL IVP PRN (23:37)
[2022-07-28] MEDS ORDERED: LEVOTHYROXINE 75 MCG TAB PO SCH (06:30)
[2022-07-28 07:49] LABS: Basophils # (A) 0.1 k/uL (0-0.2); Basophils % (A) 1 %; Eosinophils # (A) 0.3 k/uL (0-0.7); Eosinophils % (A) 3 %; HCT 31.7 % (34.0-46.0); Hypochromasia Marked; Lymphocytes # (A) 1.3 k/uL (1.0-4.8); Lymphocytes % (A) 17 %; MCH 26.2 pg (25.0-35.0); MCHC 31.6 g/dL (31.0-37.0); Mean Platelet Volume 8.1; Monocytes # (A) 0.6 k/uL (0-1.0); Monocytes % (A) 8 %; Neutrophils # (A) 5.4 k/uL (1.3-7.7); Neutrophils % (A) 70 %; Platelet Count 264 k/uL (150-450); RBC 3.82 m/uL (3.80-5.40); RDW 15.3 % (11.5-15.5); WBC 7.8 k/uL (3.8-10.6)
[2022-07-28 08:18] LABS: African American GFR (CKD) 83 (>60 ml/min/1.73 sqM); Anion Gap 4 mmol/L; Blood Urea Nitrogen 15 mg/dL (7-17); Calcium 7.7 mg/dL (8.4-10.2); Carbon Dioxide 28 mmol/L (22-30); Chloride 107 mmol/L (98-107); Glucose 127 mg/dL (74-99); Non-African American GFR(CKD) 72 (>60 ml/min/1.73 sqM); Potassium 4.2 mmol/L (3.5-5.1); Sodium 139 mmol/L (137-145)
[2022-07-28] MEDS: AMIODARONE 200 MG TAB PO SCH (08:59)
[2022-07-28] MEDS: METOPROLOL SUCCINATE (ER) 25 MG TAB.ER.24H PO SCH (09:00)
[2022-07-28] MEDS ORDERED: ASPIRIN 325 MG TAB PO SCH (09:00)
[2022-07-28] MEDS ORDERED: METOPROLOL SUCCINATE (ER) 25 MG TAB.ER.24H PO SCH (09:00)
[2022-07-28] MEDS ORDERED: ASPIRIN 81 MG PO SCH (09:00)
[2022-07-28] MEDS: ATORVASTATIN 40 MG TAB PO SCH (09:00)
[2022-07-28] MEDS: NICOTINE 21MG/24HR PATCH TRANSDERM SCH (10:01)
[2022-07-28 13:32] VITALS: BP 120/58; PULSE 60; RESP 16; TEMP 99.5
--- NOTE | 2022-07-28 13:59 | P.PN ---
Subjective Progress Note Date: 07/28/22 PROGRESS NOTE The patient is a 71-year-old female, followed by Dr. Adan, with a history of CAD status post stenting of the RCA, history of COPD and paroxysmal atrial fibrillation. She woke up this morning with palpitations, unsteadiness and severe back discomfort as well as worsening dyspnea. Came into the emergency room and was noted to be in atrial fibrillation with rapid ventricular response. She is back in sinus mechanism at this time. She was in the hospital in June I doubt that is giving with similar symptoms and subsequently converted to sinus mechanism. She has underwent a stress test according to her in the office recently but the records are not available. In December of this year she had no evidence of stress-induced ischemia and her left ventricle systolic function by echocardiography was normal. The patient is not active physically, she has dyspnea on exertion. She denies any PND or orthopnea. She has occasional peripheral edema on the right side. She denies any syncope but she has the palpitations and she feels dizzy at times. She underwent stenting of her RCA in [place] [address] Encarnacion using a 5.0 bare metal stent. Her coronary risk factors are positive for hypertension, hyperlipidemia and chronic tobacco use she smokes at least half a pack a day. July 28 The patient feels better today, she continues to be in sinus mechanism, she has no chest discomfort. She continues to be dyspneic and coughing no wheezing. She has no fever. She denies any nausea or vomiting. Medications: Amiodarone 400 mg twice a day, aspirin, Lipitor 40 mg daily, metoprolol succinate 25 mg twice a day,Xarelto 20 mg qd PHYSICAL EXAMINATION: Blood pressure 120/50 heart rate 60 LUNGS: Decrease air exchange with scattered wheezes HEART: Regular rate and rhythm, S1, S2. No S3. systolic ejection murmur ABDOMEN: Soft, nontender, no organomegaly EXTREMETIES: No edema LAB: Hemoglobin 10, potassium 4.2, BUN 15, creatinine 0.83 IMPRESSION: 1. Paroxysmal atrial fibrillation 2. History of CAD 3. COPD exacerbation 4. Hyperlipidemia PLAN: 1. Continue present therapy 2. Increase physical activity 3. Smoking cessation 4. Decrease amiodarone to 200 mg twice a day in one week 5. Follow-up with Dr. Adan next week 6. Probable discharged home soon Objective - Vital Signs Vital signs: Vital Signs Temp 99.5 F 12/14/22 12:00 Pulse 60 07/28/22 12:00 Resp 16 07/28/22 12:00 BP 120/58 07/28/22 12:00 Pulse Ox 95 07/28/22 12:00 FiO2 Intake & Output 07/27/22 07/28/22 07/28/22 18:59 06:59 18:59 Intake Total 540 670 Balance 540 670 Weight 77.201 kg Intake: Oral 540 670 Other: Voiding Method Toilet Toilet Toilet # Voids 1 1 - Labs CBC & Chem 7: 07/28/22 07:01 07/28/22 07:01 Labs: Abnormal Lab Results - Last 24 Hours (Table) 07/28/22 07/28/22 Range/Units 07:01 07:01 Hgb 10.0 L D (11.4-16.0) gm/dL Hct 31.7 L (34.0-46.0) % Glucose 127 H (74-99) mg/dL Calcium 7.7 L (8.4-10.2) mg/dL
[2022-07-28] MEDS: SODIUM CHLORIDE 0.9% 1,000 ML IV SCH (14:49)
[2022-07-28 14:56] LABS: Chol/HDL Ratio 1.97 Ratio; LDL Cholesterol,Calculated 40.2 mg/dL (0.0-131.0)
--- NOTE | 2022-07-29 02:12 | DS ---
DISCHARGE SUMMARY FINAL DIAGNOSES: 1. Chest pain, possible unstable angina. Myocardial infarction ruled out. 2. Atrial fibrillation with fast ventricular rate. 3. ST-T changes in the EKG. 4. Premature ventricular contractions. 5. History of atrial fibrillation. 6. Chronic obstructive pulmonary disease. 7. Multiple medical issues. DISCHARGE DISPOSITION: The patient will be discharged in stable condition with guarded prognosis. Cardiology cleared the patient for discharge. HISTORY OF PRESENT ILLNESS: This 71-year-old woman was admitted with chest and back pain, myocardial infarction ruled out. Cardiology saw the patient. The patient recently had a stress test. Recommend outpatient followup and continued monitoring and 2D echo as an outpatient. PHYSICAL EXAMINATION: VITAL SIGNS: Stable. CARDIOVASCULAR: S1, S2. ABDOMEN: Soft. NERVOUS SYSTEMS: No focal deficits. DISCHARGE MEDICATIONS: Please review the discharge list of medications. 1. Amiodarone has been recommended 400 mg b.i.d. 2. Lipitor 40 mg. 3. Metoprolol 25 mg b.i.d. increase the dose. 4. Aspirin 81 mg daily. Follow up with Dr. Adan and follow up with Dr. Watts as recommended. MMPILIL / IJN: [id number] /
== END 2022-07-28 14:56 | disposition home or self-care (01) | DRG 309 ==
LOC: EC 08:36 → 3SCARD 10:56
PROVIDERS: ADMIT Internal Medicine; ATTEND Internal Medicine
DX: I48.0 Paroxysmal atrial fibrillation (principal); I25.110 Atherosclerotic heart disease of native coronary artery with unstable angina pectoris; J44.1 Chronic obstructive pulmonary disease with (acute) exacerbation; I27.1 Kyphoscoliotic heart disease; Z71.6 Tobacco abuse counseling; I10 Essential (primary) hypertension; E78.5 Hyperlipidemia, unspecified; F17.210 Nicotine dependence, cigarettes, uncomplicated; M06.9 Rheumatoid arthritis, unspecified; I49.3 Ventricular premature depolarization; I25.2 Old myocardial infarction; Z79.01 Long term (current) use of anticoagulants; Z79.890 Hormone replacement therapy; Z90.710 Acquired absence of both cervix and uterus; Z95.5 Presence of coronary angioplasty implant and graft; Z96.641 Presence of right artificial hip joint; Z88.2 Allergy status to sulfonamides; Z91.041 Radiographic dye allergy status; Z88.8 Allergy status to other drugs, medicaments and biological substances; Z91.048 Other nonmedicinal substance allergy status; Z86.14 Personal history of Methicillin resistant Staphylococcus aureus infection; Z88.1 Allergy status to other antibiotic agents; Z88.6 Allergy status to analgesic agent
CPT/HCPCS: 36415; 71046; 80048; 80053; 80061; 83690; 83735; 83880; 84443; 84484; 85025; 85610; 85730; 93005; 96361; 96374; 99285; 99291

== ENCOUNTER 2022-07-31 00:23 | Observation (INO) | payer MEDICARE ==
--- NOTE | 2022-07-31 00:49 | ED ---
General Adult HPI <Anne-MarieMike Ramona - Last Filed: 07/31/22 04:30> - General Source: patient, EMS, RN notes reviewed Mode of arrival: EMS Limitations: no limitations <Nasreen Henry - Last Filed: 07/31/22 05:19> - General Chief complaint: Shortness of Breath Stated complaint: SOB Time Seen by Provider: 07/31/22 00:25 - History of Present Illness Initial comments: 71 year old female presents to the Emergency Department via EMS from home with complaints of shortness of breath and bilateral lower extremity edema, onset today. States she was recently discharged from the hospital for atrial fibri llation; reports this was a new diagnosis on and has been taking her medications as prescribed. States her legs are not usually swollen and reports this is significant for her. States she has been occasionally short of breath with her A.Fib but reports this is much more so than usual. Does not usually wear oxygen but is on 2 liters nasal cannula applied by EMS. States her cough is typical for her. Denies fever, chills, headache, dizziness, chest pain, abdominal pain, nausea, vomiting, diarrhea, and dysuria. (Nasreen Henry) - Related Data Home Medications Medication Instructions Recorded Confirmed Levothyroxine Sodium [Synthroid] 75 mcg PO DAILY 04/13/17 07/27/22 Rivaroxaban [Xarelto] 20 mg PO HS 07/18/22 07/27/22 Previous Rx's Medication Instructions Recorded Amiodarone [Cordarone] 400 mg PO BID 30 Days #60 tab 07/28/22 Aspirin 81 mg PO DAILY 30 Days #30 tab 07/28/22 Atorvastatin [Lipitor] 40 mg PO DAILY 30 Days #30 tab 07/28/22 Metoprolol Succinate (ER) [Toprol 25 mg PO BID 30 Days #60 tab 07/28/22 XL] Allergies Allergy/AdvReac Type Severity Reaction Status Date / Time adhesive tape Allergy Rash/Hives Verified 07/27/22 09:59 iodine Allergy Anaphylaxis Verified 07/27/22 09:59 latex Allergy Rash/Hives Verified 07/27/22 09:59 sulfamethoxazole Allergy Unknown Verified 07/27/22 09:59 [From Bactrim] trimethoprim [From Bactrim] Allergy Unknown Verified 07/27/22 09:59 STEROIDS AdvReac Confusion Uncoded 07/27/22 09:59 Review of Systems ROS Other: All systems not noted in ROS Statement are negative. <Mike Xie - Last Filed: 07/31/22 04:30> ROS Other: All systems not noted in ROS Statement are negative. <Nasreen Henry - Last Filed: 07/31/22 05:19> ROS Statement: Those systems with pertinent positive or pertinent negative responses have been documented in the HPI. Past Medical History Past Medical History: Atrial Fibrillation, Coronary Artery Disease (CAD), COPD, Hyperlipidemia, Hypertension, Rheumatoid Arthritis (RA), Supraventricular Tachycardia (SVT), Thyroid Disorder Additional Past Medical History / Comment(s): CAD post NSTEMI with PCI of the RCA. History of Any Multi-Drug Resistant Organisms: MRSA, Other MDRO Date of last positivie culture/infection: 2006 MDRO Source:: Right leg Past Surgical History: Appendectomy, Section, Cholecystectomy, Heart Catheterization With Stent, Hysterectomy, Orthopedic Surgery Additional Past Surgical History / Comment(s): rt hip replacement 12/16/21 Past Anesthesia/Blood Transfusion Reactions: No Reported Reaction Date of Last Stent Placement:: 12/01 Past Psychological History: No Psychological Hx Reported Smoking Status: Current every day smoker Past Alcohol Use History: None Reported Past Drug Use History: None Reported - Past Family History Father Family Medical History: Cancer Additional Family Medical History / Comment(s): Father at age 51 from lung cancer with metastatic disease. Mother Family Medical History: Rheumatoid Arthritis (RA) Additional Family Medical History / Comment(s): Mother at age 77 from old age but had history of rheumatoid arthritis. Brother(s) Additional Family Medical History / Comment(s): Patient had 1 brother that from complications of agent orange. Daughter(s) Additional Family Medical History / Comment(s): Patient has 3 children with no major medical problems. Sister(s) Family Medical History: Renal Disease, Vascular Disorder <Nasreen Henry - Last Filed: 07/31/22 05:19> General Exam Limitations: no limitations General appearance: alert, in no apparent distress (Well-developed, well-no urished female in no acute distress, though does have notable increased work of breathing.) ENT exam: Present: normal exam, normal oropharynx, mucous membranes moist Neck exam: Present: normal inspection, full ROM. Absent: lymphadenopathy Respiratory exam: Present: other (Diminished lung sounds throughout. Mild tachypnea. Dry, non-productive cough.). Absent: wheezes, rales, rhonchi Cardiovascular Exam: Present: regular rate, normal rhythm, bradycardia, normal heart sounds GI/Abdominal exam: Present: soft, normal bowel sounds. Absent: distended, tenderness, guarding, rebound, rigid Extremities exam: Present: full ROM, normal capillary refill, other (bilateral lower extremity edema; trace pitting, nonerythematous. 2+ pedal pulses) Neurological exam: Present: alert, oriented X3 Psychiatric exam: Present: normal affect, normal mood Skin exam: Present: warm, dry, intact, normal color. Absent: rash <Nasreen Henry - Last Filed: 07/31/22 05:19> Course <Nasreen Henry - Last Filed: 07/31/22 05:19> Vital Signs 07/31/22 07/31/22 07/31/22 00:24 00:29 03:02 Temperature 98.5 F Pulse Rate 62 74 Respiratory 26 H Rate Blood Pressure 139/67 O2 Sat by Pulse 96 Oximetry 07/31/22 07/31/22 03:08 03:49 Temperature Pulse Rate 84 67 Respiratory 24 Rate Blood Pressure 166/86 O2 Sat by Pulse 93 L Oximetry - Reevaluation(s) Reevaluation #1: 07/31/22 02:03 Patient updated on results. Explained concern for PE due to shortness breath, hypoxia, and elevated d-dimer. Discussed iodine ALLERGY. Patient reports hives during a radiology exam approximately 25 years ago. Agreeable to premedication, then will proceed to CT for PE study. 07/31/22 02:53 CT negative for PE. Patient is hypoxic and short of breath when ambulating to bathroom. BNP is significantly elevated when compared with previous visit. She will be given Lasix. Duo-neb ordered- h/o COPD. 07/31/22 03:21 Patient updated on results including plan of care and intent to admitted. She is agreeable. (Nasreen Henry) EKG Findings - EKG Comments: EKG Findings:: EKG is sinus 58 TX 141 QRS 84 QTc 432 <Mike Xie - Last Filed: 07/31/22 04:30> Medical Decision Making - Lab Data Result diagrams: 07/31/22 00:43 07/31/22 00:43 <Mike Xie - Last Filed: 07/31/22 04:30> - Lab Data Result diagrams: 07/31/22 00:43 07/31/22 00:43 - EKG Data EKG shows normal: sinus rhythm Rate: bradycardia - Radiology Data Radiology results: report reviewed, image reviewed <Nasreen Henry - Last Filed: 07/31/22 05:19> - Medical Decision Making 71-year-old female with a past medical history of atrial fibrillation, CAD, COPD, and hypertension presents to the emergency Department with complaints of increased lower extremity edema and shortness of breath, worsening this evening. Upon exam, patient is tachypneic with minimal activity and arrives on 2 L of oxygen nasal cannula via EMS. Lungs sounds are decreased with no rales, rhonchi, or wheezing. Cough is baseline for her. No chest pain or palpitations. Has been taking her medications as prescribed. Recently hospitalized for chest pain and A.Fib w/RVR. Currently in NSR/NSB with heart rate 50s-60s. Laboratory studies were obtained. Patient does have mild leukocytosis, though has recently been treated with an oral steroid. Hemoglobin 10.3, hematocrit 33.0 stable for patient. D-dimer 1.95. Troponin negative. Covid and influenza negative. BNP elevated 1190. Lasix given. Duo-neb ordered... Chest x-ray shows mild interstitial infiltrates in the lower lobe. CT of the chest was negative for PE. Patient will be admitted for further evaluation and treatment. (Nasreen Henry) - Lab Data Lab Results 07/31/22 07/31/22 07/31/22 Range/Units 00:43 00:43 00:43 WBC 12.5 H (3.8-10.6) k/uL RBC 4.08 (3.80-5.40) m/uL Hgb 10.3 L (11.4-16.0) gm/dL Hct 33.0 L (34.0-46.0) % MCV 80.8 (80.0-100.0) fL MCH 25.3 (25.0-35.0) pg MCHC 31.2 (31.0-37.0) g/dL RDW 15.7 H (11.5-15.5) % Plt Count 228 (150-450) k/uL MPV 8.2 Neutrophils % 75 % Lymphocytes % 16 % Monocytes % 6 % Eosinophils % 2 % Basophils % 1 % Neutrophils # 9.3 H (1.3-7.7) k/uL Lymphocytes # 2.0 (1.0-4.8) k/uL Monocytes # 0.7 (0-1.0) k/uL Eosinophils # 0.2 (0-0.7) k/uL Basophils # 0.1 (0-0.2) k/uL Hypochromasia Moderate PT 13.0 H (9.0-12.0) sec INR 1.3 H (<1.2) APTT 30.9 H (22.0-30.0) sec D-Dimer 1.95 H (<0.60) mg/L FEU Sodium 140 (137-145) mmol/L Potassium 3.5 (3.5-5.1) mmol/L Chloride 107 (98-107) mmol/L Carbon Dioxide 28 (22-30) mmol/L Anion Gap 5 mmol/L BUN 13 (7-17) mg/dL Creatinine 0.66 (0.52-1.04) mg/dL Est GFR (CKD-EPI)AfAm >90 (>60 ml/min/1.73 sqM) Est GFR (CKD-EPI)NonAf 89 (>60 ml/min/1.73 sqM) Glucose 119 H (74-99) mg/dL Plasma Lactic Acid Mario Alberto (0.7-2.0) mmol/L Calcium 7.8 L (8.4-10.2) mg/dL Magnesium 1.9 (1.6-2.3) mg/dL Total Bilirubin 0.3 (0.2-1.3) mg/dL AST 24 (14-36) U/L ALT 19 (4-34) U/L Alkaline Phosphatase 82 (38-126) U/L Troponin I (0.000-0.034) ng/mL NT-Pro-B Natriuret Pep pg/mL Total Protein 6.1 L (6.3-8.2) g/dL Albumin 3.4 L (3.5-5.0) g/dL Coronavirus (PCR) (Not Detectd) Influenza Type A RNA (Not Detectd) Influenza Type B (PCR) (Not Detectd) 07/31/22 07/31/22 07/31/22 Range/Units 00:43 00:43 00:43 WBC (3.8-10.6) k/uL RBC (3.80-5.40) m/uL Hgb (11.4-16.0) gm/dL Hct (34.0-46.0) % MCV (80.0-100.0) fL MCH (25.0-35.0) pg MCHC (31.0-37.0) g/dL RDW (11.5-15.5) % Plt Count (150-450) k/uL MPV Neutrophils % % Lymphocytes % % Monocytes % % Eosinophils % % Basophils % % Neutrophils # (1.3-7.7) k/uL Lymphocytes # (1.0-4.8) k/uL Monocytes # (0-1.0) k/uL Eosinophils # (0-0.7) k/uL Basophils # (0-0.2) k/uL Hypochromasia PT (9.0-12.0) sec INR (<1.2) APTT (22.0-30.0) sec D-Dimer (<0.60) mg/L FEU Sodium (137-145) mmol/L Potassium (3.5-5.1) mmol/L Chloride (98-107) mmol/L Carbon Dioxide (22-30) mmol/L Anion Gap mmol/L BUN (7-17) mg/dL Creatinine (0.52-1.04) mg/dL Est GFR (CKD-EPI)AfAm (>60 ml/min/1.73 sqM) Est GFR (CKD-EPI)NonAf (>60 ml/min/1.73 sqM) Glucose (74-99) mg/dL Plasma Lactic Acid Mario Alberto 1.1 (0.7-2.0) mmol/L Calcium (8.4-10.2) mg/dL Magnesium (1.6-2.3) mg/dL Total Bilirubin (0.2-1.3) mg/dL AST (14-36) U/L ALT (4-34) U/L Alkaline Phosphatase (38-126) U/L Troponin I <0.012 (0.000-0.034) ng/mL NT-Pro-B Natriuret Pep 1190 pg/mL Total Protein (6.3-8.2) g/dL Albumin (3.5-5.0) g/dL Coronavirus (PCR) (Not Detectd) Influenza Type A RNA (Not Detectd) Influenza Type B (PCR) (Not Detectd) 07/31/22 07/31/22 Range/Units 00:43 00:43 WBC (3.8-10.6) k/uL RBC (3.80-5.40) m/uL Hgb (11.4-16.0) gm/dL Hct (34.0-46.0) % MCV (80.0-100.0) fL MCH (25.0-35.0) pg MCHC (31.0-37.0) g/dL RDW (11.5-15.5) % Plt Count (150-450) k/uL MPV Neutrophils % % Lymphocytes % % Monocytes % % Eosinophils % % Basophils % % Neutrophils # (1.3-7.7) k/uL Lymphocytes # (1.0-4.8) k/uL Monocytes # (0-1.0) k/uL Eosinophils # (0-0.7) k/uL Basophils # (0-0.2) k/uL Hypochromasia PT (9.0-12.0) sec INR (<1.2) APTT (22.0-30.0) sec D-Dimer (<0.60) mg/L FEU Sodium (137-145) mmol/L Potassium (3.5-5.1) mmol/L Chloride (98-107) mmol/L Carbon Dioxide (22-30) mmol/L Anion Gap mmol/L BUN (7-17) mg/dL Creatinine (0.52-1.04) mg/dL Est GFR (CKD-EPI)AfAm (>60 ml/min/1.73 sqM) Est GFR (CKD-EPI)NonAf (>60 ml/min/1.73 sqM) Glucose (74-99) mg/dL Plasma Lactic Acid Mario Alberto (0.7-2.0) mmol/L Calcium (8.4-10.2) mg/dL Magnesium (1.6-2.3) mg/dL Total Bilirubin (0.2-1.3) mg/dL AST (14-36) U/L ALT (4-34) U/L Alkaline Phosphatase (38-126) U/L Troponin I (0.000-0.034) ng/mL NT-Pro-B Natriuret Pep pg/mL Total Protein (6.3-8.2) g/dL Albumin (3.5-5.0) g/dL Coronavirus (PCR) Not Detected (Not Detectd) Influenza Type A RNA Not Detected (Not Detectd) Influenza Type B (PCR) Not Detected (Not Detectd) - EKG Data EKG Comments: EKG obtained at 00 35 shows sinus bradycardia with possible right ventricular conduction delay, left ventricular hypertrophy, and STT change. Ventricular rate 58, TX interval 141, QRS duration 84, QT/QTc 436/432. Interpretation abnormal ECG. I see no evidence of acute ischemic changes. EKG compared with previous with no significant change. (Nasreen Henry) - Radiology Data CT chest angio for PE was obtained. Report was reviewed in its entirety. Impression per Dr. Longo is subsegmental atelectasis at the lung bases. No evidence of pulmonary embolism. Two-view chest x-ray was obtained. Report was reviewed in its entirety. Impression per Dr. Longo is there are some mild interstitial infiltrates in the lower lobes which appear new compared to old exam. No obvious heart failure. (Nasreen Henry) Disposition <Mike Xie - Last Filed: 07/31/22 04:30> Decision Date: 07/31/22 Decision Time: 03:46 <Nasreen Henry - Last Filed: 07/31/22 05:19> Clinical Impression: Congestive heart failure, Hypoxia, Pneumonia Disposition: ADMITTED IP TO THIS HOSP Condition: Serious
--- NOTE | 2022-07-31 01:14 | XR ---
EXAMINATION TYPE: XR chest 2V DATE OF EXAM: 07/31/2022 COMPARISON: 07/27/2022 HISTORY: Short of breath TECHNIQUE: FINDINGS: Heart is normal. Lungs are clear of infiltrate. There is some coarsening of interstitial ma rkings in the lower lung gifford. There are chest leads. IMPRESSION: There are some mild interstitial infiltrates in the lower lobes which appear new compared to old exam. No obvious heart failure.
[2022-07-31 01:15] LABS: Basophils # (A) 0.1 k/uL (0-0.2); Basophils % (A) 1 %; Eosinophils # (A) 0.2 k/uL (0-0.7); Eosinophils % (A) 2 %; HGB 10.3 gm/dL (11.4-16.0); Hypochromasia Moderate; Lymphocytes % (A) 16 %; MCH 25.3 pg (25.0-35.0); MCHC 31.2 g/dL (31.0-37.0); MCV 80.8 fL (80.0-100.0); Mean Platelet Volume 8.2; Monocytes # (A) 0.7 k/uL (0-1.0); Monocytes % (A) 6 %; Neutrophils # (A) 9.3 k/uL (1.3-7.7); Neutrophils % (A) 75 %; Platelet Count 228 k/uL (150-450); RBC 4.08 m/uL (3.80-5.40); RDW 15.7 % (11.5-15.5); WBC 12.5 k/uL (3.8-10.6)
[2022-07-31 01:22] LABS: ALT 19 U/L (4-34); AST 24 U/L (14-36); African American GFR (CKD) >90 (>60 ml/min/1.73 sqM); Albumin 3.4 g/dL (3.5-5.0); Alkaline Phosphatase 82 U/L (38-126); Anion Gap 5 mmol/L; Blood Urea Nitrogen 13 mg/dL (7-17); Calcium 7.8 mg/dL (8.4-10.2); Carbon Dioxide 28 mmol/L (22-30); Chloride 107 mmol/L (98-107); Glucose 119 mg/dL (74-99); Magnesium 1.9 mg/dL (1.6-2.3); Non-African American GFR(CKD) 89 (>60 ml/min/1.73 sqM); Potassium 3.5 mmol/L (3.5-5.1); Sodium 140 mmol/L (137-145); Total Bilirubin 0.3 mg/dL (0.2-1.3); Total Protein 6.1 g/dL (6.3-8.2)
[2022-07-31 01:26] LABS: INR 1.3 (<1.2); Partial Thromboplastin Time 30.9 sec (22.0-30.0)
[2022-07-31] MEDS ORDERED: diphenhydrAMINE 50 MG/ML 1 ML VIAL IVP STA (02:01)
[2022-07-31] MEDS ORDERED: FAMOTIDINE 20 MG/2 ML VIAL IV STA (02:01)
[2022-07-31] MEDS ORDERED: methylPREDNISolone SOD SUCCI 125 MG/2 ML VIAL IV STA (02:01)
--- NOTE | 2022-07-31 02:46 | CT ---
EXAMINATION TYPE: CT chest angio for PE DATE OF EXAM: 07/31/2022 COMPARISON: 01/10/2020 HISTORY: ELEVATED DDIMER CT DLP: 323.6 mGycm Automated exposure control for dose reduction was used. CONTRAST: Performed with IV Contrast, patient injected with 80 mL of Isovue 370. Images obtained from the thoracic inlet to the diaphragm with the IV contrast. There are Three-D postprocessed images. FINDINGS: There is mild subsegmental atelectasis at the lung bases. No pleural effusion. Heart is top normal in size. There are no hilar masses. No pericardial effusion. No filling defects seen in the pulmonary a rteries. Thoracic aorta is intact. No aneurysm or dissection. The thoracic spine is intact. IMPRESSION: Subsegmental atelectasis at the lung bases. No evidence of pulmonary embolism.
[2022-07-31] MEDS ORDERED: IPRATROPIUM-ALBUTEROL 3 ML NEB INHALATION STA (02:50)
[2022-07-31] MEDS ORDERED: FUROSEMIDE 10 MG/ML 4 ML VIAL IV STA (02:51)
[2022-07-31] MEDS ORDERED: AZITHROMYCIN 500 MG in SODIUM CHLORIDE 0.9% 250 ML IVPB STA (03:19)
[2022-07-31] MEDS ORDERED: LORazepam 2 MG/ML INJ IV STA (03:32)
[2022-07-31] MEDS ORDERED: ACETAMINOPHEN TAB 325 MG TAB PO PRN (03:46)
[2022-07-31] MEDS ORDERED: LORazepam 0.5 MG TAB PO PRN (03:46)
[2022-07-31] MEDS ORDERED: NALOXONE 0.4 MG/ML 1 ML VIAL IV PRN (03:46)
[2022-07-31] MEDS ORDERED: HALOPERIDOL LACTATE 5 MG/ML 1 ML VIAL IM STA (06:45)
[2022-07-31] MEDS ORDERED: AMIODARONE 200 MG TAB PO SCH (09:00)
--- NOTE | 2022-07-31 10:51 | P.CRDCN ---
History of Present Illness Consult date: 07/31/22 Requesting physician: Adam Carbajal Reason for Consult (text): CHF, elevated BNP, lower extremity edema Chief complaint: CLINE, edema History of present illness: This is a pleasant 71-year-old female patient who follows with Dr. Adan in the office. Has a history of CAD status post stenting of the RCA, COPD and paroxysmal atrial fibrillation. She was recently discharged from the hospital at which time she was admitted with paroxysmal atrial fibrillation with rapid ventricular response and initiated on amiodarone. She presented this admission with worsening shortness of breath with minimal activity and lower extremity edema since discharge. She was feeling quite short of breath just walking from her kitchen table to the sink. She is maintaining sinus mechanism. Labs on admission showed a white blood cell count 12,500, hemoglobin 10.3, d-dimer was elevated at 1.95, potassium 3.5, BUN 13, creatinine 0.66, troponin negative 1 and an NT proBNP of 1190 which was previously for 441. His x-ray showed mild interstitial infiltrates in the lower lobes which appear new compared to old exam. A CTA of the chest was done due to the elevated d-dimer and was negative for PE but did show subsegmental atelectasis at lung bases. Is been initiated on Rocephin and oxygen. She was given one dose of IV Lasix. Upon examination she sitting up in the stretcher in the emergency department. She is overall feeling a bit better. Continues to complain of shortness of breath as well as some mild orthopnea and lower extremity edema. Most recent echo from December showed an preserved LV systolic function. Past Medical History Past Medical History: Atrial Fibrillation, Coronary Artery Disease (CAD), COPD, Hyperlipidemia, Hypertension, Rheumatoid Arthritis (RA), Supraventricular Tachycardia (SVT), Thyroid Disorder Additional Past Medical History / Comment(s): CAD post NSTEMI with PCI of the RCA. History of Any Multi-Drug Resistant Organisms: MRSA, Other MDRO Date of last positivie culture/infection: 2006 MDRO Source:: Right leg Past Surgical History: Appendectomy, Section, Cholecystectomy, Heart Catheterization With Stent, Hysterectomy, Orthopedic Surgery Additional Past Surgical History / Comment(s): rt hip replacement 12/16/21 Past Anesthesia/Blood Transfusion Reactions: No Reported Reaction Date of Last Stent Placement:: 12/01 Past Psychological History: No Psychological Hx Reported Smoking Status: Current every day smoker Past Alcohol Use History: None Reported Past Drug Use History: None Reported - Past Family History Father Family Medical History: Cancer Additional Family Medical History / Comment(s): Father at age 51 from lung cancer with metastatic disease. Mother Family Medical History: Rheumatoid Arthritis (RA) Additional Family Medical History / Comment(s): Mother at age 77 from old age but had history of rheumatoid arthritis. Brother(s) Additional Family Medical History / Comment(s): Patient had 1 brother that from complications of agent orange. Daughter(s) Additional Family Medical History / Comment(s): Patient has 3 children with no major medical problems. Sister(s) Family Medical History: Renal Disease, Vascular Disorder Medications and Allergies Home Medications Medication Instructions Recorded Confirmed Type Levothyroxine Sodium [Synthroid] 75 mcg PO DAILY 04/13/17 07/27/22 History Rivaroxaban [Xarelto] 20 mg PO HS 07/18/22 07/27/22 History Amiodarone [Cordarone] 400 mg PO BID 30 Days #60 tab 07/28/22 Rx Aspirin 81 mg PO DAILY 30 Days #30 tab 07/28/22 Rx Atorvastatin [Lipitor] 40 mg PO DAILY 30 Days #30 tab 07/28/22 Rx Metoprolol Succinate (ER) [Toprol 25 mg PO BID 30 Days #60 tab 07/28/22 Rx XL] Naproxen [EC-Naproxen] 500 mg PO BID PRN 07/31/22 07/31/22 History Allergies Allergy/AdvReac Type Severity Reaction Status Date / Time adhesive tape Allergy Rash/Hives Verified 07/27/22 09:59 iodine Allergy Anaphylaxis Verified 07/27/22 09:59 latex Allergy Rash/Hives Verified 07/27/22 09:59 sulfamethoxazole Allergy Unknown Verified 07/27/22 09:59 [From Bactrim] trimethoprim [From Bactrim] Allergy Unknown Verified 07/27/22 09:59 STEROIDS AdvReac Severe Confusion Uncoded 07/31/22 06:31 Physical Exam Vitals: Vital Signs Temp Pulse Resp BP Pulse Ox 07/31/22 06:33 72 20 158/80 95 07/31/22 03:49 67 24 166/86 93 L 07/31/22 03:08 84 07/31/22 03:02 74 07/31/22 00:29 98.5 F 07/31/22 00:24 62 26 H 139/67 96 Intake and Output 07/30/22 07/31/22 07/31/22 22:59 06:59 14:59 Other: Weight 77.111 kg PHYSICAL EXAMINATION: This is a 71-year-old female in no apparent distress at the time of my examination. HEENT: Head is atraumatic, normocephalic. Pupils are equal, round. Sclerae a nicteric. Conjunctivae are clear. Mucous membranes of the mouth are moist. Neck is supple. There is no elevated jugular venous pressure. No carotid bruit is heard. CHEST EXAMINATION: Lungs reveal diminished air entry bilaterally. No wheezes rales or rhonchi. Respirations even and nonlabored. HEART EXAMINATION: Heart regular, positive S1 and S2. No S3. No S4. No clicks, rubs or murmurs. ABDOMEN: Soft, nontender. Bowel sounds are heard. No organomegaly noted. EXTREMITIES: 2+ peripheral pulses with no evidence of peripheral edema and no calf tenderness noted. NEUROLOGIC EXAMINATION: Patient is awake, drowsy and oriented x3, mild confusion noted that she is speaking with a staff member as if they're her family. Results 07/31/22 00:43 07/31/22 00:43 Cardiac Enzymes 07/31/22 07/31/22 Range/Units 00:43 00:43 AST 24 (14-36) U/L Troponin I <0.012 (0.000-0.034) ng/mL Coagulation 07/31/22 Range/Units 00:43 PT 13.0 H (9.0-12.0) sec APTT 30.9 H (22.0-30.0) sec CBC 07/31/22 Range/Units 00:43 WBC 12.5 H (3.8-10.6) k/uL RBC 4.08 (3.80-5.40) m/uL Hgb 10.3 L (11.4-16.0) gm/dL Hct 33.0 L (34.0-46.0) % Plt Count 228 (150-450) k/uL Comprehensive Metabolic Panel 07/31/22 Range/Units 00:43 Sodium 140 (137-145) mmol/L Potassium 3.5 (3.5-5.1) mmol/L Chloride 107 (98-107) mmol/L Carbon Dioxide 28 (22-30) mmol/L BUN 13 (7-17) mg/dL Creatinine 0.66 (0.52-1.04) mg/dL Glucose 119 H (74-99) mg/dL Calcium 7.8 L (8.4-10.2) mg/dL AST 24 (14-36) U/L ALT 19 (4-34) U/L Alkaline Phosphatase 82 (38-126) U/L Total Protein 6.1 L (6.3-8.2) g/dL Albumin 3.4 L (3.5-5.0) g/dL Current Medications Generic Name Dose Route Start Last Admin Trade Name Freq PRN Reason Stop Dose Admin Acetaminophen 650 mg 07/31/22 03:46 Acetaminophen Tab 325 Mg Tab PO Q6HR PRN Mild Pain or Fever > 100.5 Amiodarone HCl 400 mg 07/31/22 09:00 Amiodarone 200 Mg Tab PO BID [facility] Aspirin 81 mg 07/31/22 09:00 Aspirin 81 Mg PO DAILY [facility] Atorvastatin Calcium 40 mg 07/31/22 09:00 Atorvastatin 40 Mg Tab PO DAILY [facility] Famotidine 20 mg 07/31/22 09:00 Famotidine 20 Mg Tab PO BID [facility] Levothyroxine Sodium 75 mcg 07/31/22 06:30 Levothyroxine 75 Mcg Tab PO DAILY@0630 [facility] Lorazepam 0.5 mg 07/31/22 03:46 07/31/22 04:21 Lorazepam 0.5 Mg Tab PO 0.5 mg Q6HR PRN Administration Anxiety Metoprolol Succinate 25 mg 07/31/22 09:00 Metoprolol Succinate (Er) 25 Mg Tab.Er.24h PO BID [facility] Naloxone HCl 0.2 mg 07/31/22 03:46 Naloxone 0.4 Mg/Ml 1 Ml Vial IV Q2M PRN Opioid Reversal Nicotine 1 patch 07/31/22 09:00 Nicotine 21mg/24hr Patch TRANSDERM DAILY [facility] Rivaroxaban 20 mg 07/31/22 21:00 Rivaroxaban 20 Mg Tab PO [facility] Protocol Intake and Output 07/30/22 07/31/22 07/31/22 22:59 06:59 14:59 Other: Weight 77.111 kg 07/31/22 00:43 07/31/22 00:43 Assessment and Plan Assessment: Symptoms of worsening dyspnea on exertion likely multifactorial with a component of both mild heart failure, likely diastolic as well as COPD exacerbation #2 paroxysmal atrial fibrillation, maintaining sinus mechanism, anticoagulated and currently on amiodarone #3 CAD with prior stenting of the RCA #4 chronic tobacco use #5 hypertension Plan: From cardiology's perspective will repeat a 2-D echo with Doppler study to assess cardiac structure and function. Continue anticoagulation and amiodarone. We will add IV Lasix 20 mg every 12 hours. Follow the renal function and electrolytes. Continue to follow the patient provide further recommendations accordingly. ENGINEERING CONSULTANT note has been reviewed, I agree with a documented findings and plan of care. Patient was seen and examined.
[2022-07-31] MEDS ORDERED: IPRATROPIUM-ALBUTEROL 3 ML NEB INHALATION PRN (12:16)
[2022-07-31] MEDS: IPRATROPIUM-ALBUTEROL 3 ML NEB INHALATION SCH ×3 (14:55→20:36)
--- NOTE | 2022-07-31 14:55 | P.HPIM ---
History of Present Illness H&P Date: 07/31/22 This is a 71-year-old female who follows with [facility] in the outpatient setting. Patient was discharged home from the hospital on 07/28/22 and has been at home. The son at beside reports being unable to reach his mother yesterday and then was notified she was at the hospital. The ER reports show the patient came in with worsening dyspnea and bilateral lower extremity edema with acute onset of yesterday. However patient is quite sedated during examination unable to obtain history from patient at this time. Patient recently discharged from the hospital having been admitted with new onset atrial fibrillation and started on amiodarone. She is a current smoker, does not wear oxygen at home. She is currently evaluated on medical floor, sedated, wearing 2L nasal cannula. Most of the medical history is taken from the chart. She denied abdominal pain, nausea vomiting diarrhea, no dysuria, no fever or chills, no headache, dizziness, or chest pain. Patient presented with a white count of 12.5, d-dimer is found to be elevated at 1.95, sodium of 140, potassium 3.5, glucose of 119, proBNP is 1 190, troponin negative. Covid influenza A and B are all negative. Blood pressure is elevated today 158/80. She is admitted for acute CHF and cardiology has been consulted, patient did receive a dose of IV Lasix 2 in the emergency center. She was also given a dose of IV azithromycin and IV ceftriaxone empirically. Patient was also given a dose of IV Solu-Medrol. She is currently anticoagulated with xarelto. Other medical history includes COPD, coronary artery disease status post PCI, paroxysmal atrial fibrillation, hypertension, hyperlipidemia, rheumatoid arthritis, thyroid disorder, prior history of supraventricular tachycardia. Per medical record patient was agitated and combative in the emergency room which prompted sedation to be given she did received valium, ativan, benadryl and also haldol. She underwent chest CTA secondary to elevated D Dimer which was negative for pulmonary embolism did show some atelectasis at the lung base. Chest xray shows interstitial edema. Unable to complete full review of systems patient is sedated at the time of my examination. She is arousable. PHYSICAL EXAMINATION: GENERAL: The patient is alert and oriented x1, sedated but arousable HEENT: Pupils are round and equally reacting to light. EOMI. No scleral icterus. No conjunctival pallor. Normocephalic, atraumatic. No pharyngeal erythema. No thyromegaly. CARDIOVASCULAR: S1 and S2 present. No murmurs, rubs, or gallops. PULMONARY: Chest is clear to auscultation, no wheezing or crackles. ABDOMEN: Soft, nontender, nondistended, normoactive bowel sounds. No palpable organomegaly. MUSCULOSKELETAL: No joint swelling or deformity. EXTREMITIES: No cyanosis, clubbing, or pedal edema. NEUROLOGICAL: Unable to complete full neurological work up. Speech is slow to respond. Appears slurred. SKIN: No rashes. Assessment and Plan Assessment Altered mental status secondary to possible sedative effect from medication, brain CT has been ordered rule out stroke Dyspnea on exertion with peripheral edema likely from mild acute heart failure, diastolic Acute hypoxic respiratory failure currently on 2L nasal cannula multifocal from possible acute COPD exacerbation, acute CHF Elevated D-Dimer CTA negative for pulmonary embolism Recent diagnosis paroxysmal atrial fibrillation anticoagulated with eliquis currently in sinus rhythm Coronary artery disease with previous PCI Hypertension Hyperlipidemia Rheumatoid arthritis Hypothyroidism History of supraventricular tachycardia Chronic tobacco use GI prophylaxis DVT prophylaxis Full Code Plan Continue on IV Lasix Reason appropriate home medications Brain CT has been ordered Echocardiogram pending Further recommendations from cardiology based on clinical course Avoid sedative medications Neurology and pulmonary consultation Procalcitonin level pending Prognosis guarded The impression and plan of care has been dictated by Preeti Pagan Nurse Practitioner as directed. Dr. Phil MD I have performed a history and physical examination and medical decision making of this patient, discussed the same with the dictator, and agree with the dictators assessment and plan as written, documented as a scribe. Based on total visit time, I have performed more than 50% of this visit. Past Medical History Past Medical History: Atrial Fibrillation, Coronary Artery Disease (CAD), COPD, Hyperlipidemia, Hypertension, Rheumatoid Arthritis (RA), Supraventricular Tachycardia (SVT), Thyroid Disorder Additional Past Medical History / Comment(s): CAD post NSTEMI with PCI of the RCA. History of Any Multi-Drug Resistant Organisms: MRSA, Other MDRO Date of last positivie culture/infection: 2006 MDRO Source:: Right leg Past Surgical History: Appendectomy, Section, Cholecystectomy, Heart Catheterization With Stent, Hysterectomy, Orthopedic Surgery Additional Past Surgical History / Comment(s): rt hip replacement 12/16/21 Past Anesthesia/Blood Transfusion Reactions: No Reported Reaction Date of Last Stent Placement:: 12/01 Past Psychological History: No Psychological Hx Reported Smoking Status: Current every day smoker Past Alcohol Use History: None Reported Past Drug Use History: None Reported - Past Family History Father Family Medical History: Cancer Additional Family Medical History / Comment(s): Father at age 51 from lung cancer with metastatic disease. Mother Family Medical History: Rheumatoid Arthritis (RA) Additional Family Medical History / Comment(s): Mother at age 77 from old age but had history of rheumatoid arthritis. Brother(s) Additional Family Medical History / Comment(s): Patient had 1 brother that from complications of agent orange. Daughter(s) Additional Family Medical History / Comment(s): Patient has 3 children with no major medical problems. Sister(s) Family Medical History: Renal Disease, Vascular Disorder Medications and Allergies Home Medications Medication Instructions Recorded Confirmed Type Levothyroxine Sodium [Synthroid] 75 mcg PO DAILY 04/13/17 07/31/22 History Rivaroxaban [Xarelto] 20 mg PO HS 07/18/22 07/31/22 History Amiodarone [Cordarone] 400 mg PO BID 30 Days #60 tab 07/28/22 07/31/22 Rx Aspirin 81 mg PO DAILY 30 Days #30 tab 07/28/22 07/31/22 Rx Atorvastatin [Lipitor] 40 mg PO DAILY 30 Days #30 tab 07/28/22 07/31/22 Rx Metoprolol Succinate (ER) [Toprol 25 mg PO BID 30 Days #60 tab 07/28/22 07/31/22 Rx XL] Naproxen [EC-Naproxen] 500 mg PO BID PRN 07/31/22 07/31/22 History Allergies Allergy/AdvReac Type Severity Reaction Status Date / Time adhesive tape Allergy Rash/Hives Verified 07/27/22 09:59 iodine Allergy Anaphylaxis Verified 07/27/22 09:59 latex Allergy Rash/Hives Verified 07/27/22 09:59 sulfamethoxazole Allergy Unknown Verified 07/27/22 09:59 [From Bactrim] trimethoprim [From Bactrim] Allergy Unknown Verified 07/27/22 09:59 STEROIDS AdvReac Severe Confusion Uncoded 07/31/22 06:31 Physical Exam Vitals: Vital Signs Temp Pulse Resp BP Pulse Ox 12/17/22 06:33 72 20 158/80 95 07/31/22 03:49 67 24 166/86 93 L 07/31/22 03:08 84 07/31/22 03:02 74 07/31/22 00:29 98.5 F 07/31/22 00:24 62 26 H 139/67 96 Intake and Output 07/30/22 07/31/22 07/31/22 22:59 06:59 14:59 Other: Weight 77.111 kg Results CBC & Chem 7: 07/31/22 00:43 07/31/22 00:43 Labs: Abnormal Lab Results - Last 24 Hours (Table) 07/31/22 07/31/22 07/31/22 Range/Units 00:43 00:43 00:43 WBC 12.5 H (3.8-10.6) k/uL Hgb 10.3 L (11.4-16.0) gm/dL Hct 33.0 L (34.0-46.0) % RDW 15.7 H (11.5-15.5) % Neutrophils # 9.3 H (1.3-7.7) k/uL PT 13.0 H (9.0-12.0) sec INR 1.3 H (<1.2) APTT 30.9 H (22.0-30.0) sec D-Dimer 1.95 H (<0.60) mg/L FEU Glucose 119 H (74-99) mg/dL Calcium 7.8 L (8.4-10.2) mg/dL Total Protein 6.1 L (6.3-8.2) g/dL Albumin 3.4 L (3.5-5.0) g/dL Assessment and Plan Time with Patient: Greater than 30
--- NOTE | 2022-07-31 15:09 | CT ---
EXAMINATION TYPE: CT brain wo con CT DLP: 1072.4 mGycm, Automated exposure control for dose reduction was used. DATE OF EXAM: 07/31/2022 2:33 PM COMPARISON: 01/22/2019. CLINICAL INDICATION:Female, 71 years old with history of speech changes., speech changes TECHNIQUE: Brain: Axial CT images of the brain were obtained with coronal and sagittal reformats created and rev iewed. Contrast used: None. Oral contrast used: None. FINDINGS: Brain: Extra-axial spaces: No abnormal extra-axial fluid collections. Ventricular system: Within normal limits Cerebral parenchyma: No acute intraparenchymal hemorrhage or mass effect. The dorsey-white junction is well differentiated. White matter changes most pronounced in the posterior brain more pronounced on today's exam. Cerebellum: Unremarkable. Mass effect: No evidence of midline shift. Intracranial vasculature: unremarkable Soft tissues: Normal. Calvarium/osseous structures: No depressed skull fracture. Paranasal sinuses and mastoid air cells: Mild scattered paranasal sinus disease. Visualized orbits: Orbital contents are intact. IMPRESSION: Increased white matter changes compared to prior in 2019. 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 Consider MRI for further evaluation.
[2022-07-31] MEDS: LEVOTHYROXINE 75 MCG TAB PO SCH (16:40)
[2022-07-31] MEDS: ATORVASTATIN 40 MG TAB PO SCH (16:40)
[2022-07-31] MEDS: ASPIRIN 81 MG PO SCH (16:40)
[2022-07-31] MEDS: FAMOTIDINE 20 MG TAB PO SCH ×2 (16:40→21:19)
[2022-07-31] MEDS: FUROSEMIDE 10 MG/ML 2 ML VIAL IV SCH ×2 (16:41→21:03)
[2022-07-31] MEDS: METOPROLOL SUCCINATE (ER) 25 MG TAB.ER.24H PO SCH ×2 (16:41→21:19)
[2022-07-31] MEDS: NICOTINE 21MG/24HR PATCH TRANSDERM SCH (16:41)
--- NOTE | 2022-07-31 18:03 | CA ---
Transthoracic Echo Report Name: Soila Mccullough Age: 71 Gender: F : 1950 Exam Date: 07/31/2022 12:34 Exam Location: [place] [facility] Ht (in): 67 Wt (lb): 170 Ordering Physician: Sayra Sheth Attending/Referring Phys: [id number] [employer] Building Machine Operator Dorys Kaur RDCS Procedure CPT: Indications: chf Cardiac Hx: Technical Quality: Contrast 1: Total Dose (mL): Contrast 2: Total Dose (mL): MEASUREMENTS (Male / Female) Normal Values 2D ECHO LV Diastolic Diameter PLAX 4.3 cm 4.2 - 5.9 / 3.9 - 5.3 cm LV Systolic Diameter PLAX 2.7 cm IVS Diastolic Thickness 1.2 cm 0.6 - 1.0 / 0.6 - 0.9 cm LVPW Diastolic Thickness 1.4 cm 0.6 - 1.0 / 0.6 - 0.9 cm LV Relative Wall Thickness 0.6 RV Internal Dim ED PLAX 2.6 cm LA Systolic Diameter LX 3.9 cm 3.0 - 4.0 / 2.7 - 3.8 cm LA Volume 57.5 cm??? 18 - 58 / 22 - 52 cm??? M-MODE Aortic Root Diameter MM 2.6 cm LA Systolic Diameter MM 4.0 cm LA Ao Ratio MM 1.6 MV E Point Septal Separation 0.4 cm AV Cusp Separation MM 1.4 cm DOPPLER MV Area PHT 3.3 cm??? Mitral E Point Velocity 60.0 cm/s Mitral A Point Velocity 100.4 cm/s Mitral E to A Ratio 0.6 MV Deceleration Time 226.9 ms MV E' Velocity 4.7 cm/s Mitral E to MV E' Ratio 12.8 TR Peak Velocity 180.5 cm/s TR Peak Gradient 13.0 mmHg Right Ventricular Systolic Press 18.0 mmHg FINDINGS Left Ventricle Mildly increased septal wall thickness. Left ventricular cavity size normal. Left ventricular ejection fraction is estimated at 55-60 %. Right Ventricle Normal right ventricular size and function. Right ventricular systolic pressure within normal limits. Right Atrium Normal right atrial size. Left Atrium Mildly increased left atrial diameter. Mildly increased left atrial volume. Mitral Valve Structurally normal mitral valve. Mitral annular calcification. Mild mitral regurgitation. Aortic Valve Trileaflet aortic valve. Tricuspid Valve Structurally normal tricuspid valve. Mild tricuspid regurgitation. Pulmonic Valve Structurally normal pulmonic valve. Pericardium Echo free space anterior to the right ventricle likely represents a fat pad. Aorta Normal size aortic root and proximal ascending aorta. CONCLUSIONS 1. Normal size and systolic function 2. Mild mitral and tricuspid regurgitation Previewed by: Dr. Micki Herrera MD (Electronically Signed) Final Date: 31 July 2022 18:03
--- NOTE | 2022-07-31 18:26 | P.CNPUL ---
History of Present Illness Consult date: 07/31/22 Reason for consult: dyspnea History of present illness: 71-year-old female patient, was recently discharged from the hospital on 07/28/2022, the back to the hospital and the exact circumstances of admission is not known. The patient comes into the ED via EMS because of worsening shortness of breath. According to the family, her son and the daughter will communicating with her throughout the day and she was fine. Upon admission, the patient was seen for symptoms of shortness of breath and and she was also on 2 L of oxygen by nasal cannula. She stated that her cough was typical for her. Denies having any cough or sputum production. Denies having any chest pain. No nausea or vomiting or any other GI symptoms. The patient had a white second of 12.5. Her d-dimer was 1.95. ProBNP level was 1190, troponin was negative. Influenza screen was negative. The patient was given a dose of Lasix. She was given IV antibiotics. Subsequently a CT angiogram was ordered. Nevertheless, in the emergency and I assume for increased agitation, the patient was given a combination of drugs including Valium, Benadryl, Haldol and Ativan. At the time of my evaluation, the patient was quite lethargic and I was not able to give much information. I was told that she was more lethargic and somnolent earlier and she is gradually recovering from the effect of sedation. At the opportunity to review the CAT scan of the chest dated showed COPD and emphysema bilaterally. No evidence of any filling defects. No evidence of any airspace 0 cons olidation. Review of Systems ROS unobtainable: due to mental status Past Medical History Past Medical History: Atrial Fibrillation, Coronary Artery Disease (CAD), COPD, Hyperlipidemia, Hypertension, Rheumatoid Arthritis (RA), Supraventricular Tachycardia (SVT), Thyroid Disorder Additional Past Medical History / Comment(s): CAD post NSTEMI with PCI of the RCA. History of Any Multi-Drug Resistant Organisms: MRSA, Other MDRO Date of last positivie culture/infection: 2006 MDRO Source:: Right leg Past Surgical History: Appendectomy, Section, Cholecystectomy, Heart Catheterization With Stent, Hysterectomy, Orthopedic Surgery Additional Past Surgical History / Comment(s): rt hip replacement 12/16/21 Past Anesthesia/Blood Transfusion Reactions: No Reported Reaction Date of Last Stent Placement:: 12/01 Past Psychological History: No Psychological Hx Reported Additional Psychological History / Comment(s): passed 11/2019 from covid- lives alone now Smoking Status: Current every day smoker Past Alcohol Use History: None Reported Additional Past Alcohol Use History / Comment(s): She denies any marijuana or illicit drug use. Past Drug Use History: None Reported Additional Drug Use History / Comment(s): uses cannibis oil for R/A - Past Family History Father Family Medical History: Cancer Additional Family Medical History / Comment(s): Father at age 51 from lung cancer with metastatic disease. Mother Family Medical History: Rheumatoid Arthritis (RA) Additional Family Medical History / Comment(s): Mother at age 77 from old age but had history of rheumatoid arthritis. Brother(s) Additional Family Medical History / Comment(s): Patient had 1 brother that from complications of agent orange. Daughter(s) Additional Family Medical History / Comment(s): Patient has 3 children with no major medical problems. Sister(s) Family Medical History: Renal Disease, Vascular Disorder Medications and Allergies Home Medications Medication Instructions Recorded Confirmed Type Levothyroxine Sodium [Synthroid] 75 mcg PO DAILY 04/13/17 07/31/22 History Rivaroxaban [Xarelto] 20 mg PO HS 07/18/22 07/31/22 History Amiodarone [Cordarone] 400 mg PO BID 30 Days #60 tab 07/28/22 07/31/22 Rx Aspirin 81 mg PO DAILY 30 Days #30 tab 07/28/22 07/31/22 Rx Atorvastatin [Lipitor] 40 mg PO DAILY 30 Days #30 tab 07/28/22 07/31/22 Rx Metoprolol Succinate (ER) [Toprol 25 mg PO BID 30 Days #60 tab 07/28/22 07/31/22 Rx XL] Naproxen [EC-Naproxen] 500 mg PO BID PRN 07/31/22 07/31/22 History Allergies Allergy/AdvReac Type Severity Reaction Status Date / Time adhesive tape Allergy Rash/Hives Verified 07/27/22 09:59 iodine Allergy Anaphylaxis Verified 07/27/22 09:59 latex Allergy Rash/Hives Verified 07/27/22 09:59 sulfamethoxazole Allergy Unknown Verified 07/27/22 09:59 [From Bactrim] trimethoprim [From Bactrim] Allergy Unknown Verified 07/27/22 09:59 STEROIDS AdvReac Severe Confusion Uncoded 07/31/22 06:31 Physical Exam Vitals: Vital Signs Temp Pulse Pulse Resp BP BP Pulse Ox 07/31/22 17:14 82 07/31/22 17:04 80 07/31/22 15:26 68 18 146/77 98 07/31/22 12: 98.2 F 66 17 137/82 96 07/31/22 06:33 72 20 158/80 95 07/31/22 03:49 67 24 166/86 93 L 07/31/22 03:08 84 07/31/22 03:02 74 07/31/22 00:29 98.5 F 07/31/22 00:24 62 26 H 139/67 96 Intake and Output 07/31/22 07/31/22 07/31/22 06:59 14:59 22:59 Other: Weight 77.111 kg 77.111 kg The patient appeared well nourished and normally developed. Vital signs as documented. Head exam is unremarkable. No scleral icterus or corneal arcus noted. Neck is without jugular venous distension, thyromegaly, or carotid bruits. Carotid upstrokes are brisk bilaterally. Lungs . are diminished breath sounds bilaterally along with prolongation of expiratory phase of breathing and scattered expiratory wheezes throughout the lung gifford. Cardiac exam reveals the PMI to normally sized and situated. Rhythm is regular. First and second heart sounds normal. No murmurs, rubs or gallops. Abdominal exam reveals normal bowel sounds, no masses, no organomegaly and no aortic enlargement. Extremities are nonedematous and both femoral and pedal pulses are normal.Examination of the skin revealed no evidence of significant rashes, suspicious appearing nevi or other concerning lesions. Neurologically the patient is still somnolent and sleepy on the effect of the sedative medications Results - Laboratory Findings CBC and BMP: 07/31/22 00:43 07/31/22 00:43 PT/INR, D-dimer PT 13.0 sec (9.0-12.0) H 07/31/22 00:43 INR 1.3 (<1.2) H 07/31/22 00:43 D-Dimer 1.95 mg/L FEU (<0.60) H 07/31/22 00:43 Abnormal lab findings: Abnormal Labs 07/31/22 07/31/22 07/31/22 00:43 00:43 00:43 WBC 12.5 H Hgb 10.3 L Hct 33.0 L RDW 15.7 H Neutrophils # 9.3 H PT 13.0 H INR 1.3 H APTT 30.9 H D-Dimer 1.95 H Glucose 119 H Calcium 7.8 L Total Protein 6.1 L Albumin 3.4 L - Diagnostic Findings Chest x-ray: image reviewed CT scan - chest: image reviewed Assessment and Plan Plan: shortness of breath, acute on chronic. The patient was restless for worsening shortness of breath. Exact circumstances leading to his current admission is not known and the patient is currently sedated. CT angiogram showed no evidence of any acute abnormalities. Labs were reviewed. No acute abnormalities COPD, advanced, currently inactive and stable and the patient limited on Trelegy Ellipta on outpatient basis and Proventil rescue inhaler. No signs of an acute exacerbation the patient's chest x-ray is negative for any acute abnormalities Chronic hypoxic respiratory failure and the patient is using O2 on an as-needed basis diminished level of consciousness due to a combination of drugs given to this patient in emergency department paroxysmal atrial fibrillation current rhythm is sinus Coronary artery disease with previous coronary intervention stenting of the RCA Rheumatoid arthritis Hyperlipidemia Hypothyroidism Irritable bowel Ex-smoker plan avoid sedatives and assess her mental status most his drugs wear off Resume all medications including bronchodilators we'll continue to follow
[2022-07-31] MEDS ORDERED: RIVAROXABAN 20 MG TAB PO SCH (21:00)
[2022-07-31] MEDS: AMIODARONE 200 MG TAB PO SCH (21:01)
[2022-08-01 02:23] VITALS: RESP 18
[2022-08-01] MEDS: LEVOTHYROXINE 75 MCG TAB PO SCH (06:18)
[2022-08-01] MEDS: IPRATROPIUM-ALBUTEROL 3 ML NEB INHALATION SCH ×2 (07:52→11:40)
[2022-08-01] MEDS: NICOTINE 21MG/24HR PATCH TRANSDERM SCH (08:58)
[2022-08-01 09:03] VITALS: BP 127/75; PULSE 61; TEMP 97.4
[2022-08-01] MEDS: ASPIRIN 81 MG PO SCH (09:04)
[2022-08-01] MEDS: FAMOTIDINE 20 MG TAB PO SCH (09:04)
[2022-08-01] MEDS: ATORVASTATIN 40 MG TAB PO SCH (09:04)
--- NOTE | 2022-08-01 09:23 | P.CNNES ---
History of Present Illness Consult date: 07/22/22 Requesting physician: Sayra Sheth Reason for Consult: speech changes History of Present Illness: This is a 71-year-old woman with history of atrial fibrillation on Xarelto, coronary artery disease status post stent to presented emergency department because of shortness of breath and the lower extremity edema. Neurology is consulted for speech difficulty. Daughters at bedside who provided some of the history. It seems that the patient is in the ED was given Benadryl, Haldol, was given Ativan, Valium and Haldol then after that was felt that the patient was slurring her speech. Patient denies any focal weakness numbness any headache. Denies any visual disturbance. She feels drastically better today compared to yesterday. She denies any history of stroke or seizures in the past. Was felt that the patient the symptoms might be due to mild heart failure of the that shortness of breath with the right leg the edema as well as possibly COPD exacerbation. Daughters at bedside and she feels the patient is doing also drastically better. Some of the workup during his hospital visit consisted of: Her initial blood pressure was 139/67 and the highest got was 166/86 Initial serum glucose is 119. Sodium, calcium, magnesium, BUN and creatinine are within normal limits CT of the head is reported as increased white matter changes compared to prior 2019. Finding could represent posterior reversible encephalopathy syndrome in appropriate clinical setting. Consider MRI for further evaluation. I perso jose reviewed that CAT scan and I disagree with the report. I do not see any evidence of white matter lesion that is significant in the posterior region suggestive of possible reversible encephalopathy syndrome. There is no acute or subacute ischemia and there is no uninterpretable hemorrhage. Review of Systems Review of system: The 12 point system was reviewed and apparent positive and negative per HPI. Past Medical History Past Medical History: Atrial Fibrillation, Coronary Artery Disease (CAD), COPD, Hyperlipidemia, Hypertension, Rheumatoid Arthritis (RA), Supraventricular Tachycardia (SVT), Thyroid Disorder Additional Past Medical History / Comment(s): CAD post NSTEMI with PCI of the RCA. History of Any Multi-Drug Resistant Organisms: MRSA, Other MDRO Date of last positivie culture/infection: 2006 MDRO Source:: Right leg Past Surgical History: Appendectomy, Section, Cholecystectomy, Heart Catheterization With Stent, Hysterectomy, Orthopedic Surgery Additional Past Surgical History / Comment(s): rt hip replacement 12/16/21 Past Anesthesia/Blood Transfusion Reactions: No Reported Reaction Date of Last Stent Placement:: 12/01 Past Psychological History: No Psychological Hx Reported Additional Psychological History / Comment(s): passed 11/2019 from covid- lives alone now Smoking Status: Current every day smoker Past Alcohol Use History: None Reported Additional Past Alcohol Use History / Comment(s): She denies any marijuana or illicit drug use. Past Drug Use History: None Reported Additional Drug Use History / Comment(s): uses cannibis oil for R/A - Past Family History Father Family Medical History: Cancer Additional Family Medical History / Comment(s): Father at age 51 from lung cancer with metastatic disease. Mother Family Medical History: Rheumatoid Arthritis (RA) Additional Family Medical History / Comment(s): Mother at age 77 from old age but had history of rheumatoid arthritis. Brother(s) Additional Family Medical History / Comment(s): Patient had 1 brother that from complications of agent orange. Daughter(s) Additional Family Medical History / Comment(s): Patient has 3 children with no major medical problems. Sister(s) Family Medical History: Renal Disease, Vascular Disorder Medications and Allergies Home Medications Medication Instructions Recorded Confirmed Type Levothyroxine Sodium [Synthroid] 75 mcg PO DAILY 04/13/17 07/31/22 History Rivaroxaban [Xarelto] 20 mg PO HS 07/18/22 07/31/22 History Amiodarone [Cordarone] 400 mg PO BID 30 Days #60 tab 07/28/22 07/31/22 Rx Aspirin 81 mg PO DAILY 30 Days #30 tab 07/28/22 07/31/22 Rx Atorvastatin [Lipitor] 40 mg PO DAILY 30 Days #30 tab 07/28/22 07/31/22 Rx Metoprolol Succinate (ER) [Toprol 25 mg PO BID 30 Days #60 tab 07/28/22 07/31/22 Rx XL] Naproxen [EC-Naproxen] 500 mg PO BID PRN 07/31/22 07/31/22 History Allergies Allergy/AdvReac Type Severity Reaction Status Date / Time adhesive tape Allergy Rash/Hives Verified 07/27/22 09:59 iodine Allergy Anaphylaxis Verified 07/27/22 09:59 latex Allergy Rash/Hives Verified 07/27/22 09:59 sulfamethoxazole Allergy Unknown Verified 07/27/22 09:59 [From Bactrim] trimethoprim [From Bactrim] Allergy Unknown Verified 07/27/22 09:59 STEROIDS AdvReac Severe Confusion Uncoded 07/31/22 06:31 Physical Examination - Vital Signs Vital Signs: Vital Signs Temp Pulse Pulse Resp BP Pulse Ox 08/01/22 09:02 97.4 F L 61 18 127/75 93 L 08/01/22 08:01 68 18 08/01/22 07:52 65 18 08/01/22 02:07 97.6 F 69 18 139/64 91 L 07/31/22 20:48 84 07/31/22 20:36 80 07/31/22 19:05 97.6 F 69 17 155/76 97 07/31/22 17:14 82 07/31/22 17:04 80 07/31/22 15:26 68 18 146/77 98 07/31/22 12:17 98.2 F 66 17 137/82 96 Intake and Output 07/31/22 08/01/22 08/01/22 22:59 06:59 14:59 Other: Voiding Method Toilet # Voids 4 Weight 77.111 kg GENERAL: The patient is lying in bed and is not in acute distress. CHEST: The heart rate is regular rate rhythm. No murmurs to auscultation. LUNG: Clear to auscultation bilaterally no wheezing noted throughout. Not labored breathing. ABDOMEN/GI: Bowel sounds present in all 4 quadrants. No tenderness to palpation throughout. NEUROLOGICAL: Higher mental function: The patient is awake, alert, oriented to self, place and time. Patient is following commands. No aphasia and no neglect. Cranial nerves: The pupils are round, equal and reactive to light and accommodation. Visual gifford are full to confrontation throughout. Extraocular movement is intact no nystagmus is noted. Facial sensation is normal to touch throughout. The facial strength is normal throughout. Hearing is normal bilaterally to hand rub. Tongue is midline and moved [id number] without any difficulty. No dysarthria is noted. Shoulder shrug is normal bilaterally. Motor: The strength is 5 over 5 throughout. Normal tone and bulk. Cerebellum: Normal finger to nose bilaterally. Sensation: Sensation is normal to touch throughout. Reflexes (right/left): 2+ throughout. Plantars are downgoing bilaterally. Results - Laboratory Findings CBC and BMP: 07/31/22 00:43 07/31/22 00:43 Abnormal Lab Findings: Abnormal Labs 07/31/22 07/31/22 07/31/22 00:43 00:43 00:43 WBC 12.5 H Hgb 10.3 L Hct 33.0 L RDW 15.7 H Neutrophils # 9.3 H PT 13.0 H INR 1.3 H APTT 30.9 H D-Dimer 1.95 H Glucose 119 H Calcium 7.8 L Total Protein 6.1 L Albumin 3.4 L Assessment and Plan Assessment: Tranient dysarthria is likely due to medication effect (Benadryl, Ativan, Valium, Haldol). CT brain is reported as white matter that is increased compared to 2019 that is possible suggestive PRES and I disagree with report and I do not feel there is evidence of significant white matter suggestive of PRES. Patient has no headache, visual disturbance or focal deficit. Atrial fibrillation on Xarelto Hx CAD s/p stent Plan: CT brain is reported as white matter that is increased compared to 2019 that is possible suggestive PRES and I disagree with report and I do not feel there is evidence of significant white matter suggestive of PRES. Ordered MRI Brain and patient would like it as outpatient since will not be completed today since no tech (I do not feel the MRI will telephone exchange operator). Renzo's avoid any sedative medications that would affect patient neurological condition. Pulmonary and cardiology teams on board. Will defer the rest of medical management to the primary team. Recommend patient to follow-up with neurologist as outpatient within 2 week for the MRI Brain. Otherwise no additional neurological work-up and patient is clear for discharge from our side. Please notify if any further concerns. Plan is discussed with patient, her daughter who is at bedside and nurse. Thank you for the consultation. Time with Patient: Greater than 30
[2022-08-01] MEDS: FUROSEMIDE 10 MG/ML 2 ML VIAL IV SCH (11:04)
[2022-08-01] MEDS ORDERED: FUROSEMIDE 20 MG TAB PO SCH (11:15)
[2022-08-01] MEDS: AMIODARONE 200 MG TAB PO SCH (11:29)
[2022-08-01] MEDS: METOPROLOL SUCCINATE (ER) 25 MG TAB.ER.24H PO SCH (11:29)
--- NOTE | 2022-08-01 11:50 | P.PN ---
Subjective Progress Note Date: 08/01/22 This is a pleasant 71-year-old female patient who follows with Dr. Adan in the office. Has a history of CAD status post stenting of the RCA, COPD and paroxysmal atrial fibrillation. She was recently discharged from the hospital at which time she was admitted with paroxysmal atrial fibrillation with rapid ventricular response and initiated on amiodarone. She presented this admission with worsening shortness of breath with minimal activity and lower extremity edema since discharge. She was feeling quite short of breath just walking from her kitchen table to the sink. She is maintaining sinus mechanism. Labs on admission showed a white blood cell count 12,500, hemoglobin 10.3, d-dimer was elevated at 1.95, potassium 3.5, BUN 13, creatinine 0.66, troponin negative 1 and an NT proBNP of 1190 which was previously for 441. His x-ray showed mild interstitial infiltrates in the lower lobes which appear new compared to old exam. A CTA of the chest was done due to the elevated d-dimer and was negative for PE but did show subsegmental atelectasis at lung bases. Is been initiated on Rocephin and oxygen. She was given one dose of IV Lasix. Upon examination she sitting up in the stretcher in the emergency department. She is overall feeling a bit better. Continues to complain of shortness of breath as well as some mild orthopnea and lower extremity edema. Most recent echo from December showed an preserved LV systolic function. 08/01/2022 Patient was seen and examined. She is overall feeling significantly better today. Her breathing has improved. Denies lower extremity edema at this time. 2-D echo with Doppler study was done and showed normal LV systolic function with mild MR and TR. She is been up ambulating without much difficulty. She was evaluated by neurology and felt dysarthria was related to medication effect due to Benadryl, Ativan, Valium and Haldol. She is maintaining sinus mechanism. Objective - Vital Signs Vital signs: Vital Signs Temp 97.4 F L 08/01/22 09:02 Pulse 61 08/01/22 09:02 Resp 18 08/01/22 09:02 BP 127/75 08/01/22 09:02 Pulse Ox 93 L 08/01/22 09:02 FiO2 Intake & Output 07/31/22 08/01/22 08/01/22 18:59 06:59 18:59 Weight 77.111 kg Other: Voiding Method Toilet Toilet # Voids 4 - Exam HEENT: Head is atraumatic, normocephalic. Pupils are equal, round. Sclerae anicteric. Conjunctivae are clear. Mucous membranes of the mouth are moist. Neck is supple. There is no elevated jugular venous pressure. No carotid bruit is heard. CHEST EXAMINATION: Lungs reveal improved air exchange bilaterally, diminished. No wheezes rales or rhonchi. Respirations even and nonlabored. HEART EXAMINATION: Heart regular, positive S1 and S2. No S3. No S4. No clicks, rubs or murmurs. ABDOMEN: Soft, nontender. Bowel sounds are heard. No organomegaly noted. EXTREMITIES: 2+ peripheral pulses with no evidence of peripheral edema and no calf tenderness noted. NEUROLOGIC EXAMINATION: Patient is awake, alert and oriented x3 - Labs CBC & Chem 7: 07/31/22 00:43 07/31/22 00:43 Labs: Microbiology - Last 24 Hours (Table) 07/31/22 00:45 Blood Culture - Preliminary Blood No Growth after 24 hours 07/31/22 00:30 Blood Culture Gram Stain - Preliminary Blood Blood Culture - Preliminary Streptococcus species 07/31/22 00:30 Blood Culture - Final Blood Assessment and Plan Assessment: Symptoms of worsening dyspnea on exertion likely multifactorial with a component of both mild diastolic heart failure as well as COPD exacerbation #2 paroxysmal atrial fibrillation, maintaining sinus mechanism, anticoagulated and currently on amiodarone #3 CAD with prior stenting of the RCA #4 chronic tobacco use #5 hypertension Plan: From cardiology's perspective will switch to oral Lasix. Discontinue aspirin. Continue amiodarone 200 mg by mouth twice a day and metoprolol succinate 25 mg by mouth twice a day. From our standpoint she may be discharged home and follow-up as an outpatient with Dr. Adan. [employer] note has been reviewed, I agree with a documented findings and plan of care. Patient was seen and examined.
[2022-08-01 13:28] LABS: Basophils # (A) 0.07 X 10*3/uL (0.00-0.10); Basophils % (A) 0.5 %; Eosinophils # (A) 0.11 X 10*3/uL (0.04-0.35); Eosinophils % (A) 0.7 %; HCT 35.3 % (37.2-46.3); HGB 10.3 g/dL (12.0-15.0); Immature Grans, Automated 0.4 %; Lymphocytes # (A) 2.17 X 10*3/uL (0.90-5.00); Lymphocytes % (A) 14.4 %; MCH 24.7 pg (27.0-32.0); MCHC 29.2 g/dL (32.0-37.0); MCV 84.7 fL (80.0-97.0); Mean Platelet Volume 11.4 fL (9.5-12.2); Monocytes # (A) 1.11 X 10*3/uL (0.20-1.00); Monocytes % (A) 7.4 %; NRBC Per 100 WBC 0 /100 WBCS (0.0-0.0); Neutrophils # (A) 11.53 X 10*3/uL (1.80-7.70); Neutrophils % (A) 76.6 %; Platelet Count 300 X 10*3/uL (140-440); RBC 4.17 X 10*6/uL (4.10-5.20); RDW 16.5 % (11.5-14.5); WBC 15.05 X 10*3/uL (4.50-10.00)
[2022-08-01 13:43] LABS: Anion Gap 12.7 mmol/L (10.00-18.00); BUN/Creat Ratio 18.06 Ratio (12.00-20.00); Blood Urea Nitrogen 14.3 mg/dL (9.0-27.0); Calcium 8.5 mg/dL (8.7-10.3); Carbon Dioxide 28.3 mmol/L (20.0-27.5); Non-African American GFR(CKD) 75.1 (60.0-200.0); Potassium 3.4 mmol/L (3.5-5.5)
--- NOTE | 2022-08-01 14:59 | P.PN ---
Subjective Progress Note Date: 08/01/22 08/01/2022, the patient is wide awake and she has no specific complaints. Communicating. Ambulating. No cough sputum production chest episode wheezing and she states that his respiratory status is back to her baseline. Blood work from today shows a white cell count of 15 with a hemoglobin of 10.3 and a platelet count of 300. In same time, her sodium is 143, potassium level III.4, bicarb is 28 with a BUN of 14 and creatinine 0.8. Troponins are negative. Pro- calcitonin level was low at 0.05. Objective - Vital Signs Vital signs: Vital Signs Temp 97.4 F L 08/01/22 09:02 Pulse 61 08/01/22 09:02 Resp 18 08/01/22 09:02 BP 127/75 08/01/22 09:02 Pulse Ox 93 L 08/01/22 09:02 FiO2 Intake & Output 07/31/22 08/01/22 08/01/22 18:59 06:59 18:59 Weight 77.111 kg Other: Voiding Method Toilet Toilet # Voids 4 - Exam The patient appeared well nourished and normally developed. Vital signs as documented. Head exam is unremarkable. No scleral icterus or corneal arcus noted. Neck is without jugular venous distension, thyromegaly, or carotid bruit s. Carotid upstrokes are brisk bilaterally. Lungs . are diminished breath sounds bilaterally along with prolongation of expiratory phase of breathing and scattered expiratory wheezes throughout the lung gifford. Cardiac exam reveals the PMI to normally sized and situated. Rhythm is regular. First and second heart sounds normal. No murmurs, rubs or gallops. Abdominal exam reveals normal bowel sounds, no masses, no organomegaly and no aortic enlargement. Extremities are nonedematous and both femoral and pedal pulses are normal.Examination of the skin revealed no evidence of significant rashes, suspicious appearing nevi or other concerning lesions. Neurologically the patient is still somnolent and sleepy on the effect of the sedative medications - Labs CBC & Chem 7: 08/01/22 07:33 08/01/22 07:33 Labs: Abnormal Lab Results - Last 24 Hours (Table) 08/01/22 08/01/22 Range/Units 07:33 07:33 WBC 15.05 H (4.50-10.00) X 10*3/uL Hgb 10.3 L (12.0-15.0) g/dL Hct 35.3 L (37.2-46.3) % MCH 24.7 L (27.0-32.0) pg MCHC 29.2 L (32.0-37.0) g/dL RDW 16.5 H (11.5-14.5) % Immature Gran # 0.06 H (0.00-0.04) X 10*3/uL Neutrophils # 11.53 H (1.80-7.70) X 10*3/uL Monocytes # 1.11 H (0.20-1.00) X 10*3/uL Potassium 3.4 L (3.5-5.5) mmol/L Carbon Dioxide 28.3 H (20.0-27.5) mmol/L Calcium 8.5 L (8.7-10.3) mg/dL Microbiology - Last 24 Hours (Table) 07/31/22 00:30 Blood Culture Gram Stain - Preliminary Blood Blood Culture - Preliminary Alpha Hemolytic Streptococcus 07/31/22 00:45 Blood Culture - Preliminary Blood No Growth after 24 hours 07/31/22 00:30 Blood Culture - Final Blood Assessment and Plan Plan: shortness of breath, acute on chronic. Recovered COPD, advanced, currently inactive and stable and the patient limited on Trelegy Ellipta on outpatient basis and Proventil rescue inhaler. No signs of an acute exacerbation the patient's chest x-ray is negative for any acute abnormalities Chronic hypoxic respiratory failure and the patient is using O2 on an as-needed basis diminished level of consciousness due to a combination of drugs given to this patient in emergency department, recovered paroxysmal atrial fibrillation current rhythm is sinus Coronary artery disease with previous coronary intervention stenting of the RCA Rheumatoid arthritis Hyperlipidemia Hypothyroidism Irritable bowel Ex-smoker plan Patient limited discharged home on her routine outpatient medications.
--- NOTE | 2022-08-02 17:39 | P.DS ---
Providers Date of admission: 07/31/22 04:36 Attending physician: Adam Carbajal Consults: 07/31/22 04:24 Consult Physician Routine Consulting Provider: [facility] Consult Reason/Comments: CHF, Elevated BNP, Lower Extremity Edema Do you want consulting provider notified?: Yes, Notify in am 07/31/22 11:07 Consult Physician Routine Consulting Provider: Isaiah Henry Consult Reason/Comments: speech changes Do you want consulting provider notified?: Yes 07/31/22 11:08 Consult Physician Routine Consulting Provider: Dilshad Bear Consult Reason/Comments: COPD Do you want consulting provider notified?: Yes Primary care [facility]: Final Diagnosis Altered mental status secondary to possible sedative effect from medication, brain CT has been ordered rule out stroke Dyspnea on exertion with peripheral edema likely from mild acute heart failure, diastolic Acute hypoxic respiratory failure currently on 2L nasal cannula multifocal from possible acute COPD exacerbation, acute CHF Elevated D-Dimer CTA negative for pulmonary embolism Recent diagnosis paroxysmal atrial fibrillation anticoagulated with eliquis currently in sinus rhythm Coronary artery disease with previous PCI Hypertension Hyperlipidemia Rheumatoid arthritis Hypothyroidism History of supraventricular tachycardia Chronic tobacco use Full Code Discharge Disposition Patient is stable for discharge home she has been cleared by cardiology and pulmonary services. Medications have been adjusted cardiology recommending amiodarone 200 mg twice a day and also continue on lasix 20 mg daily. Patient recommending to continue on nicotine patch and has been counseled on the importance of smoking cessation. Recommending to stop naproxen as she is anticoagulated with xarelto. She is discharged on pepcid for GI prophylaxis. Accompanied by her daughter on discharge. Hospital Course This is a 71-year-old female who follows with [facility] in the outpatient setting. Patient was discharged home from the hospital on 07/28/22 and has been at home. She returns to the hospital with worsening dyspnea and bilateral lower extremity edema with acute onset of yesterday. She is a current smoker, does not wear oxygen at home. She is currently evaluated on medical floor, sedated, wearing 2L nasal cannula. Most of the medical history is taken from the chart. Per medical chart patient became agitated and combative in the ER. It appears she was given a dose of IV benadryl as she does have allergy to contrast and than was given additional sedation. She underwent chest CTA secondary to mireya vated D Dimer which was negative for pulmonary embolism did show some atelectasis at the lung base. Chest xray shows interstitial edema. Patient presented with a white count of 12.5, d-dimer is found to be elevated at 1.95, sodium of 140, potassium 3.5, glucose of 119, proBNP is 1190, troponin negative. Covid influenza A and B are all negative. There is no evidence for acute infection procalcitonin level negative. She is admitted for acute CHF and cardiology she was started on IV lasix and medications were adjusted. Amiodarone was decreased to 200 mg twice a day. She received IV lasix as well. Echocardiogram reveals normal size and systolic function and mild mitral and tricuspid regurgitation. 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 She was monitored overnight and had diuresed well shortness of beath had improved. Neurologically she had improved and was found to be alert x 3 with no focal deficits. 08/01/2022 Patient is evaluated on medical floor. She is alert x 3 today, ambulating in room, she is off the oxygen. Family is at the bedside. No acute events overnight. She denies shortness of breath, denies chest pain. Lower extremity edema is improved. She denies pain No nausea vomiting or diarrhea. Labs showing white count of 15, hgb 10.3 which is stable, sodium 143, potassium is 3.4 she did receive oral supplement, BUN 14.3, creatinine 0.8. She has maintained controlled heart rhyhtm in the 60-80s. She has not been tachycardic this admission, afebrile. Blood pressure 120/70s. She is cleared by cardiology and pulmonary for discharge. Total time taken in discharge planning greater than 35 minutes. Pleas see medication reconciliation for a list of current medication. Thank you for allowing us to participate in the care of this patient. The impression and plan of care has been dictated by Preeti Pagan, Nurse Practitioner as directed. Dr. Phil MD I have performed a history and physical examination and medical decision making of this patient, discussed the same with the dictator, and agree with the dictators assessment and plan as written, documented as a scribe. Based on total visit time, I have performed more than 50% of this visit. Patient Condition at Discharge: Stable Plan - Discharge Summary Discharge Rx Participant: No New Discharge Prescriptions: New Nicotine 21Mg/24Hr Patch [Habitrol] 1 patch TRANSDERM DAILY #7 patch Famotidine [Pepcid] 20 mg PO BID #60 tab Furosemide [Lasix] 20 mg PO DAILY #30 tab Amiodarone HCl [Pacerone] 200 mg PO BID #60 tablet Continue Levothyroxine Sodium [Synthroid] 75 mcg PO DAILY Rivaroxaban [Xarelto] 20 mg PO HS Aspirin 81 mg PO DAILY 30 Days #30 tab Atorvastatin [Lipitor] 40 mg PO DAILY 30 Days #30 tab Metoprolol Succinate (ER) [Toprol XL] 25 mg PO BID 30 Days #60 tab Discontinued Amiodarone [Cordarone] 400 mg PO BID 30 Days #60 tab Naproxen [EC-Naproxen] 500 mg PO BID PRN PRN Reason: Pain Discharge Medication List Levothyroxine Sodium [Synthroid] 75 mcg PO DAILY 04/13/17 [History] Rivaroxaban [Xarelto] 20 mg PO HS 07/18/22 [History] Aspirin 81 mg PO DAILY 30 Days #30 tab 07/28/22 [Rx] Atorvastatin [Lipitor] 40 mg PO DAILY 30 Days #30 tab 07/28/22 [Rx] Metoprolol Succinate (ER) [Toprol XL] 25 mg PO BID 30 Days #60 tab 07/28/22 [Rx] Amiodarone HCl [Pacerone] 200 mg PO BID #60 tablet 08/01/22 [Rx] Famotidine [Pepcid] 20 mg PO BID #60 tab 08/01/22 [Rx] Furosemide [Lasix] 20 mg PO DAILY #30 tab 08/01/22 [Rx] Nicotine 21Mg/24Hr Patch [Habitrol] 1 patch TRANSDERM DAILY #7 patch 08/01/22 [Rx] Follow up Appointment(s)/Referral(s): Alan Adan DO [STAFF PHYSICIAN] - 1 Week Joe Gastelum MD [Medical Doctor] - 1 Week Jeramie Watts DO [Primary Care Provider] - 1-2 days Ambulatory/Diagnostic Orders: Basic Metabolic Panel [LAB.AMB] Time Frame: 3 Days, Location: None Selected Patient Instructions/Handouts: Heart Failure (DC), Hypoxemia (DC) Activity/Diet/Wound Care/Special Instructions: Recommend to follow up with primary care provider within 1 to 2 days of disch arge. Follow up with cardiology. Recommend to follow up with neurology on discharge. Patient has been recommended by neurologist this hospital stay for follow up MRI which can be completed outpatient. Repeat BMP on discharge. Discussed daily weight monitoring Weigh yourself at the same time every morning and keep log for follow up Notify provider if more than 2 to 3 lbs overnight or 5 to 7 lbs in a week. Discussed diet modification and limiting added sodium intake. Discharge Disposition: HOME SELF-CARE
== END 2022-08-01 12:39 | disposition home or self-care (01) ==
LOC: EC 00:23 → 6NMEDSUR 04:36 → 4SSUR 10:50
PROVIDERS: ADMIT Hospitalist; ATTEND Hospitalist
DX: J96.21 Acute and chronic respiratory failure with hypoxia (principal); I11.0 Hypertensive heart disease with heart failure; I50.31 Acute diastolic (congestive) heart failure; J18.9 Pneumonia, unspecified organism; R41.82 Altered mental status, unspecified; R79.89 Other specified abnormal findings of blood chemistry; R47.1 Dysarthria and anarthria; I25.10 Atherosclerotic heart disease of native coronary artery without angina pectoris; J44.9 Chronic obstructive pulmonary disease, unspecified; E78.5 Hyperlipidemia, unspecified; M06.9 Rheumatoid arthritis, unspecified; I47.1 Supraventricular tachycardia; I25.2 Old myocardial infarction; I48.0 Paroxysmal atrial fibrillation; E03.9 Hypothyroidism, unspecified; K58.9 Irritable bowel syndrome, unspecified; F17.200 Nicotine dependence, unspecified, uncomplicated; Z95.5 Presence of coronary angioplasty implant and graft; Z96.641 Presence of right artificial hip joint; Z20.822 Contact with and (suspected) exposure to COVID-19; Z79.890 Hormone replacement therapy; Z79.01 Long term (current) use of anticoagulants; Z79.899 Other long term (current) drug therapy; Z79.82 Long term (current) use of aspirin; Z88.2 Allergy status to sulfonamides; Z91.040 Latex allergy status; Z80.1 Family history of malignant neoplasm of trachea, bronchus and lung; Z82.61 Family history of arthritis
CPT/HCPCS: 96366; 96365; 96367; 96372; 96375; 99285; 36415; 94640 ×3; 93005; 93306; 85379; 83880; 80053; 80048; 83605; 83735; 84484; 85025 ×2; 85610; 85730; 87040; 87077; 87186; 87502; 84145; 87635; 71046; 70450; 71275; G0378 ×3; J2060; J1200; J1630; J1940; J2930; J3360; J0456; J0696 ×2; Q9967; 84443

== ENCOUNTER 2022-08-02 11:30 | Observation (INO) | payer MEDICARE ==
--- NOTE | 2022-08-02 12:32 | XR ---
EXAMINATION TYPE: XR chest 2V DATE OF EXAM: 08/02/2022 COMPARISON: 07/31/2022 INDICATION: Dysrhythmia TECHNIQUE: Frontal and lateral views of the chest are obtained. FINDINGS: The heart size is normal. The pulmonary vasculature is normal. The lungs are clear. IMPRESSION: 1. No acute pulmonary process.
[2022-08-02 12:43] LABS: Basophils # (A) 0.1 k/uL (0-0.2); Basophils % (A) 1 %; Eosinophils # (A) 0.2 k/uL (0-0.7); Eosinophils % (A) 2 %; HCT 39.5 % (34.0-46.0); HGB 12.3 gm/dL (11.4-16.0); Hypochromasia Moderate; Lymphocytes # (A) 1.6 k/uL (1.0-4.8); Lymphocytes % (A) 14 %; MCH 25.1 pg (25.0-35.0); MCHC 31.1 g/dL (31.0-37.0); MCV 80.9 fL (80.0-100.0); Mean Platelet Volume 9.5; Monocytes # (A) 0.6 k/uL (0-1.0); Monocytes % (A) 5 %; Neutrophils # (A) 8.9 k/uL (1.3-7.7); Neutrophils % (A) 77 %; Platelet Count 296 k/uL (150-450); RBC 4.88 m/uL (3.80-5.40); RDW 15.8 % (11.5-15.5); WBC 11.5 k/uL (3.8-10.6)
[2022-08-02 12:57] LABS: Calcium 8.4 mg/dL (8.4-10.2); INR 1.1 (<1.2); Magnesium 1.6 mg/dL (1.6-2.3); Partial Thromboplastin Time 25.7 sec (22.0-30.0); Potassium 3.4 mmol/L (3.5-5.1); Total Bilirubin 0.7 mg/dL (0.2-1.3); Total Protein 7.1 g/dL (6.3-8.2)
[2022-08-02] MEDS ORDERED: NITROGLYCERIN SL TABS 0.4 MG TAB SUBLINGUAL PRN (13:53)
--- NOTE | 2022-08-02 13:53 | ED ---
General Adult HPI - General Chief complaint: Chest Pain Stated complaint: AFib Time Seen by Provider: 08/02/22 11:31 Source: patient, RN notes reviewed, old records reviewed Mode of arrival: EMS Limitations: no limitations - History of Present Illness Initial comments: This a 71-year-old female presents emergency Department stating that she was just discharged from the hospital yesterday for A. fib. Patient states this morning she got up and felt her heart race and thought she was given a pass out she took her pulse was 180 beats a minute. Patient states she was also very short of breath. Patient states she's afraid to go home again because she thinks is getting get hives to passout herself. Patient denies any fever chills or cough per patient states currently she feels her heart racing however shortly after my interview she felt considerably better and her heart rate was in the 70s. Patient denies any abdominal pain patient denies nausea vomiting diarrhea per patient denies any swelling or calf pain. - Related Data Home Medications Medication Instructions Recorded Confirmed Levothyroxine Sodium [Synthroid] 75 mcg PO DAILY 04/13/17 08/02/22 Rivaroxaban [Xarelto] 20 mg PO HS 07/18/22 08/02/22 Previous Rx's Medication Instructions Recorded Aspirin 81 mg PO DAILY 30 Days #30 tab 07/28/22 Atorvastatin [Lipitor] 40 mg PO DAILY 30 Days #30 tab 07/28/22 Metoprolol Succinate (ER) [Toprol 25 mg PO BID 30 Days #60 tab 07/28/22 XL] Amiodarone HCl [Pacerone] 200 mg PO BID #60 tablet 08/01/22 Famotidine [Pepcid] 20 mg PO BID #60 tab 08/01/22 Furosemide [Lasix] 20 mg PO DAILY #30 tab 08/01/22 Nicotine 21Mg/24Hr Patch [Habitrol] 1 patch TRANSDERM DAILY #7 patch 08/01/22 Allergies Allergy/AdvReac Type Severity Reaction Status Date / Time adhesive tape Allergy Rash/Hives Verified 08/02/22 13:00 iodine Allergy Anaphylaxis Verified 08/02/22 13:00 latex Allergy Rash/Hives Verified 08/02/22 13:00 sulfamethoxazole Allergy Unknown Verified 08/02/22 13:00 [From Bactrim] trimethoprim [From Bactrim] Allergy Unknown Verified 08/02/22 13:00 STEROIDS AdvReac Severe Confusion Uncoded 08/02/22 13:00 Review of Systems ROS Statement: Those systems with pertinent positive or pertinent negative responses have been documented in the HPI. ROS Other: All systems not noted in ROS Statement are negative. Past Medical History Past Medical History: Atrial Fibrillation, Coronary Artery Disease (CAD), COPD, Hyperlipidemia, Hypertension, Rheumatoid Arthritis (RA), Supraventricular Tachycardia (SVT), Thyroid Disorder Additional Past Medical History / Comment(s): CAD post NSTEMI with PCI of the RCA. History of Any Multi-Drug Resistant Organisms: MRSA, Other MDRO Date of last positivie culture/infection: 2006 MDRO Source:: Right leg Past Surgical History: Appendectomy, Section, Cholecystectomy, Heart Catheterization With Stent, Hysterectomy, Orthopedic Surgery Additional Past Surgical History / Comment(s): rt hip replacement 12/16/21 Past Anesthesia/Blood Transfusion Reactions: No Reported Reaction Date of Last Stent Placement:: 12/01 Past Psychological History: No Psychological Hx Reported Smoking Status: Current every day smoker Past Alcohol Use History: None Reported Past Drug Use History: None Reported - Past Family History Father Family Medical History: Cancer Additional Family Medical History / Comment(s): Father at age 51 from lung cancer with metastatic disease. Mother Family Medical History: Rheumatoid Arthritis (RA) Additional Family Medical History / Comment(s): Mother at age 77 from old age but had history of rheumatoid arthritis. Brother(s) Additional Family Medical History / Comment(s): Patient had 1 brother that from complications of agent orange. Daughter(s) Additional Family Medical History / Comment(s): Patient has 3 children with no m ajor medical problems. Sister(s) Family Medical History: Renal Disease, Vascular Disorder General Exam - General Exam Comments Initial Comments: GENERAL: Patient is well-developed and well-nourished. Patient is nontoxic and well- hydrated and is in mild distress. ENT: Neck is soft and supple. No significant lymphadenopathy is noted. Oropharynx is clear. Moist mucous membranes. Neck has full range of motion without eliciting any pain. EYES: The sclera were anicteric and conjunctiva were pink and moist. Extraocular movements were intact and pupils were equal round and reactive to light. Eyelids were unremarkable. PULMONARY: Unlabored respirations. Good breath sounds bilaterally. No audible rales rhonchi or wheezing was noted. CARDIOVASCULAR: There is a regular rate and rhythm without any murmurs gallops or rubs. ABDOMEN: Soft and nontender with normal bowel sounds. SKIN: Skin is clear with no lesions or rashes and otherwise unremarkable. NEUROLOGIC: Patient is alert and oriented x3. Cranial nerves II through XII are grossly intact. Motor and sensory are also intact. Normal speech, volume and content. Symmetrical smile. MUSCULOSKELETAL: Normal extremities with adequate strength and full range of motion. LYMPHATICS: No significant lymphadenopathy is noted PSYCHIATRIC: Normal psychiatric evaluation. Limitations: no limitations Course Vital Signs 08/02/22 08/02/22 08/02/22 11:39 12:20 13:23 Temperature 98 F Pulse Rate 147 H 70 66 Respiratory 20 18 18 Rate Blood Pressure 91/70 96/59 O2 Sat by Pulse 94 L 94 L Oximetry Medical Decision Making - Medical Decision Making EKG was interpreted by me. EKG shows atrial fibrillation at 131 bpm QRS is 85 Q-T intervals 296 QTC is 373. Patient's EKG shows some T-wave inversions in the leads V4 through V6 as well as 1 and aVL. Patient shortly thereafter felt much better air heart rate dropped into the 70s so I repeated an EKG. EKG was interpreted by me shows a sinus rhythm at [address] interval 113 QRSs 87 Q-T intervals 42 QTC is 424 per patient's EKG shows no ST segment elevation or depression. I spoke with Dr. Adan he wanted the patient admitted patient remained in normal sinus rhythm throughout her ED stay when she converted. I spoke with the [facility] hospitalist and they agreed to admit the patient admitted the patient wrote admitting orders I consult Dr. Adan. - Lab Data Result diagrams: 08/02/22 12:03 08/02/22 12:03 Lab Results 08/02/22 08/02/22 08/02/22 Range/Units 12:03 12:03 12:03 WBC 11.5 H (3.8-10.6) k/uL RBC 4.88 (3.80-5.40) m/uL Hgb 12.3 (11.4-16.0) gm/dL Hct 39.5 (34.0-46.0) % MCV 80.9 (80.0-100.0) fL MCH 25.1 (25.0-35.0) pg MCHC 31.1 (31.0-37.0) g/dL RDW 15.8 H (11.5-15.5) % Plt Count 296 (150-450) k/uL MPV 9.5 Neutrophils % 77 % Lymphocytes % 14 % Monocytes % 5 % Eosinophils % 2 % Basophils % 1 % Neutrophils # 8.9 H (1.3-7.7) k/uL Lymphocytes # 1.6 (1.0-4.8) k/uL Monocytes # 0.6 (0-1.0) k/uL Eosinophils # 0.2 (0-0.7) k/uL Basophils # 0.1 (0-0.2) k/uL Hypochromasia Moderate PT 11.0 (9.0-12.0) sec INR 1.1 (<1.2) APTT 25.7 (22.0-30.0) sec Sodium 139 (137-145) mmol/L Potassium 3.4 L (3.5-5.1) mmol/L Chloride 99 (98-107) mmol/L Carbon Dioxide 31 H (22-30) mmol/L Anion Gap 9 mmol/L BUN 17 (7-17) mg/dL Creatinine 0.78 (0.52-1.04) mg/dL Est GFR (CKD-EPI)AfAm 89 (>60 ml/min/1.73 sqM) Est GFR (CKD-EPI)NonAf 77 (>60 ml/min/1.73 sqM) Glucose 233 H (74-99) mg/dL Calcium 8.4 (8.4-10.2) mg/dL Magnesium 1.6 (1.6-2.3) mg/dL Total Bilirubin 0.7 (0.2-1.3) mg/dL AST 31 (14-36) U/L ALT 25 (4-34) U/L Alkaline Phosphatase 93 (38-126) U/L Troponin I (0.000-0.034) ng/mL Total Protein 7.1 (6.3-8.2) g/dL Albumin 4.0 (3.5-5.0) g/dL 08/02/22 Range/Units 12:03 WBC (3.8-10.6) k/uL RBC (3.80-5.40) m/uL Hgb (11.4-16.0) gm/dL Hct (34.0-46.0) % MCV (80.0-100.0) fL MCH (25.0-35.0) pg MCHC (31.0-37.0) g/dL RDW (11.5-15.5) % Plt Count (150-450) k/uL MPV Neutrophils % % Lymphocytes % % Monocytes % % Eosinophils % % Basophils % % Neutrophils # (1.3-7.7) k/uL Lymphocytes # (1.0-4.8) k/uL Monocytes # (0-1.0) k/uL Eosinophils # (0-0.7) k/uL Basophils # (0-0.2) k/uL Hypochromasia PT (9.0-12.0) sec INR (<1.2) APTT (22.0-30.0) sec Sodium (137-145) mmol/L Potassium (3.5-5.1) mmol/L Chloride (98-107) mmol/L Carbon Dioxide (22-30) mmol/L Anion Gap mmol/L BUN (7-17) mg/dL Creatinine (0.52-1.04) mg/dL Est GFR (CKD-EPI)AfAm (>60 ml/min/1.73 sqM) Est GFR (CKD-EPI)NonAf (>60 ml/min/1.73 sqM) Glucose (74-99) mg/dL Calcium (8.4-10.2) mg/dL Magnesium (1.6-2.3) mg/dL Total Bilirubin (0.2-1.3) mg/dL AST (14-36) U/L ALT (4-34) U/L Alkaline Phosphatase (38-126) U/L Troponin I <0.012 (0.000-0.034) ng/mL Total Protein (6.3-8.2) g/dL Albumin (3.5-5.0) g/dL Disposition Clinical Impression: Atrial fibrillation with rapid ventricular response Disposition: ADMITTED IP TO THIS HOSP Referrals: Jeramie Watts DO [Primary Care Provider] - 1-2 days Time of Disposition: 13:53
[2022-08-02] MEDS: NICOTINE 21MG/24HR PATCH TRANSDERM SCH (15:06)
[2022-08-02] MEDS: ATORVASTATIN 40 MG TAB PO SCH (15:07)
[2022-08-02] MEDS: METOPROLOL SUCCINATE (ER) 25 MG TAB.ER.24H PO SCH (20:51)
[2022-08-02] MEDS: FAMOTIDINE 20 MG TAB PO SCH (20:51)
[2022-08-02] MEDS ORDERED: AMIODARONE 200 MG TAB PO SCH (21:00)
[2022-08-02] MEDS ORDERED: RIVAROXABAN 20 MG TAB PO SCH (21:00)
[2022-08-03] MEDS ORDERED: Magnesium Replacement Protocol 1 EACH MISC MISCELLANE PRN (02:12)
[2022-08-03] MEDS ORDERED: Potassium Replacement Protocol 1 EACH MISC MISCELLANE PRN (02:12)
--- NOTE | 2022-08-03 02:25 | P.HPIM ---
History of Present Illness H&P Date: 08/02/22 This is a 71-year-old female who was recently admitted and discharged for acute congestive heart failure with diastolic dysfunction and recent diagnosis of paroxysmal atrial fibrillation with RVR. Patient had some adjustments to medications and was discharged home although while at home started feeling increased heart rate with palpitations and shortness of breath and came back to the emergency department for further evaluation. Heart rate was 130s the patient was in atrial fibrillation with RVR. Chest x-ray in the emergency department showed no acute cardiopulmonary process and labs reviewed with mild hypokalemia and hypomagnesemia. Patient reported feeling less short of breath while in the emergency department and repeat EKG done showing sinus rhythm. Patient was admitted for telemetry monitoring overnight with cardiology consult. Review Of Systems: Constitutional: No fever, no chills, no night sweats. No weight change. No weakness, fatigue or lethargy. No daytime sleepiness. EENT: No headache. No blurred vision or double vision, no loss of vision. No loss of Hearing, no ringing in the ears, no dizziness. No nasal drainage or congestion. No epistaxis. No sore throat. Lungs: Reports shortness of breath has resolved, cough, no sputum production. No wheezing. Cardiovascular: No chest pain, no lower extremity edema. Reports palpitations. No paroxysmal nocturnal dyspnea. No orthopnea. No lightheadedness or dizziness. No syncopal episodes. Abdominal: No abdominal pain. No nausea, vomiting. No diarrhea. No constipation. No bloody or tarry stools.. No loss of appetite. Genitourinary: No dysuria, increased frequency, urgency. No urinary retention. Musculoskeletal: No myalgias. No muscle weakness, no gait dysfunction, no frequent falls. No back pain. No neck pain. Integumentary: No wounds, no lesions. No rash or pruritus. No unusual bruising. No change in hair or nails. Neurologic: No aphasia. No facial droop. No change in mentation. No head injury. No headache. No paralysis. No paresthesia. Psychiatric: No depression. No anxiety. No mood swings. Endocrine: No abnormal blood sugars. No weight change. No excessive sweating or thirst. No cold intolerance. PHYSICAL EXAMINATION: GENERAL: The patient is alert and oriented x4, Well developed, well nourished. HEENT: Pupils are round and equally reacting to light. EOMI. no scleral icterus. No conjunctival pallor. Normocephalic, atraumatic. No pharyngeal erythema. No thyromegaly. CARDIOVASCULAR: S1 and S2 muffled PULMONARY: diminished breath sounds bilaterally with no wheezing or rhonchi noted. ABDOMEN: soft. Nontender on exam. obese. non-distended, normoactive bowel sounds. No palpable organomegaly. MUSCULOSKELETAL: No joint swelling or deformity. EXTREMITIES: No cyanosis, clubbing, or pedal edema. NEUROLOGICAL: Gross neurological examination did not reveal any focal deficits. SKIN: No rashes. Assessment: Atrial fibrillation with RVR Shortness of breath secondary to above Hypomagnesemia Hypokalemia History of coronary artery disease with previous PCI History of congestive heart failure, chronic with diastolic dysfunction, not in exacerbation History of paroxysmal atrial fibrillation COPD, not in exacerbation Hyperlipidemia Hypertension Rheumatoid arthritis Continued ongoing nicotine dependence GI prophylaxis DVT prophylaxis, on Xarelto Full code Plan: Recommend to continue with current medications and management with cardiology consulted and pending. Patient was just recently admitted discharge for CHF exacerbation along with altered mental status possibly due to medication effect with diagnosis of paroxysmal atrial fibrillation with RVR and started feeling palpitations associated with shortness of breath and came back to the emergency department. Patient's initial troponins are negative and will trend with cardiology on consult. Patient is continued on Xarelto along with metoprolol will continue. Potassium slightly low at 3.3 along with magnesium at 1.6 and will replace and recommend repeat labs in a.m. Recommend telemetry monitoring overnight and will discuss with cardiology in a.m. about possible discharge. Patient has converted to sinus rhythm and recommend continue telemetry monitoring. The impression and plan of care has been dictated by Leigha Martinez, nurse practitioner as directed. Dr. Phil MD I have performed a history and examination and MDM of this patient, discussed the same with the dictator, and agree with the dictator's assessment and plan as written ,documented as a scribe. Based on total visit time, I have performed more than 50% of the visit. Any additional findings or plans will be noted. Past Medical History Past Medical History: Atrial Fibrillation, Coronary Artery Disease (CAD), COPD, Hyperlipidemia, Hypertension, Rheumatoid Arthritis (RA), Supraventricular Tachycardia (SVT), Thyroid Disorder Additional Past Medical History / Comment(s): CAD post NSTEMI with PCI of the RCA. History of Any Multi-Drug Resistant Organisms: MRSA, Other MDRO Date of last positivie culture/infection: 2006 MDRO Source:: Right leg Past Surgical History: Appendectomy, Section, Cholecystectomy, Heart Catheterization With Stent, Hysterectomy, Orthopedic Surgery Additional Past Surgical History / Comment(s): rt hip replacement 12/16/21 Past Anesthesia/Blood Transfusion Reactions: No Reported Reaction Date of Last Stent Placement:: 12/01 Past Psychological History: No Psychological Hx Reported Smoking Status: Current every day smoker Past Alcohol Use History: None Reported Past Drug Use History: None Reported - Past Family History Father Family Medical History: Cancer Additional Family Medical History / Comment(s): Father at age 51 from lung cancer with metastatic disease. Mother Family Medical History: Rheumatoid Arthritis (RA) Additional Family Medical History / Comment(s): Mother at age 77 from old age but had history of rheumatoid arthritis. Brother(s) Additional Family Medical History / Comment(s): Patient had 1 brother that from complications of agent orange. Daughter(s) Additional Family Medical History / Comment(s): Patient has 3 children with no major medical problems. Sister(s) Family Medical History: Renal Disease, Vascular Disorder Medications and Allergies Home Medications Medication Instructions Recorded Confirmed Type Levothyroxine Sodium [Synthroid] 75 mcg PO DAILY 04/13/17 08/02/22 History Rivaroxaban [Xarelto] 20 mg PO HS 07/18/22 08/02/22 History Aspirin 81 mg PO DAILY 30 Days #30 tab 07/28/22 08/02/22 Rx Atorvastatin [Lipitor] 40 mg PO DAILY 30 Days #30 tab 07/28/22 08/02/22 Rx Metoprolol Succinate (ER) [Toprol 25 mg PO BID 30 Days #60 tab 07/28/22 08/02/22 Rx XL] Amiodarone HCl [Pacerone] 200 mg PO BID #60 tablet 08/01/22 08/02/22 Rx Famotidine [Pepcid] 20 mg PO BID #60 tab 08/01/22 08/02/22 Rx Furosemide [Lasix] 20 mg PO DAILY #30 tab 08/01/22 08/02/22 Rx Nicotine 21Mg/24Hr Patch [Habitrol] 1 patch TRANSDERM DAILY #7 patch 08/01/22 08/02/22 Rx Allergies Allergy/AdvReac Type Severity Reaction Status Date / Time adhesive tape Allergy Rash/Hives Verified 08/02/22 13:00 iodine Allergy Anaphylaxis Verified 08/02/22 13:00 latex Allergy Rash/Hives Verified 08/02/22 13:00 sulfamethoxazole Allergy Unknown Verified 08/02/22 13:00 [From Bactrim] trimethoprim [From Bactrim] Allergy Unknown Verified 08/02/22 13:00 diphenhydramine AdvReac Confusion Verified 08/02/22 17:35 [From Benadryl] STEROIDS AdvReac Severe Confusion Uncoded 08/02/22 13:00 Physical Exam Vitals: Vital Signs Temp Pulse Resp BP Pulse Ox 08/02/22 13:23 66 18 96/59 94 L 08/02/22 12:20 70 18 08/02/22 11:39 98 F 147 H 20 91/70 94 L Intake and Output 08/01/22 08/02/22 08/02/22 22:59 06:59 14:59 Other: Weight 77.111 kg Results CBC & Chem 7: 08/02/22 12:03 08/02/22 12:03 Labs: Abnormal Lab Results - Last 24 Hours (Table) 08/02/22 08/02/22 Range/Units 12:03 12:03 WBC 11.5 H (3.8-10.6) k/uL RDW 15.8 H (11.5-15.5) % Neutrophils # 8.9 H (1.3-7.7) k/uL Potassium 3.4 L (3.5-5.1) mmol/L Carbon Dioxide 31 H (22-30) mmol/L Glucose 233 H (74-99) mg/dL
[2022-08-03] MEDS: MAGNESIUM SULFATE-D5W PMX 1 GM in DEXTROSE/WATER 1 100ML.BAG IVPB SCH ×2 (03:16→04:09)
[2022-08-03] MEDS: POTASSIUM CHLORIDE ER 20 MEQ TAB.ER PO SCH ×2 (05:41→06:32)
[2022-08-03] MEDS ORDERED: LEVOTHYROXINE 75 MCG TAB PO SCH (06:30)
[2022-08-03] MEDS ORDERED: AMIODARONE 200 MG TAB PO SCH (07:15)
[2022-08-03] MEDS: ATORVASTATIN 40 MG TAB PO SCH (08:30)
[2022-08-03] MEDS: FAMOTIDINE 20 MG TAB PO SCH (08:30)
[2022-08-03] MEDS: METOPROLOL SUCCINATE (ER) 25 MG TAB.ER.24H PO SCH (08:37)
[2022-08-03] MEDS: NICOTINE 21MG/24HR PATCH TRANSDERM SCH (08:39)
[2022-08-03 08:49] VITALS: BP 137/76; PULSE 61; RESP 18; TEMP 98
[2022-08-03] MEDS ORDERED: FUROSEMIDE 20 MG TAB PO SCH (09:00)
[2022-08-03] MEDS ORDERED: ASPIRIN 325 MG TAB PO SCH (09:00)
[2022-08-03] MEDS ORDERED: POTASSIUM CHLORIDE ER 20 MEQ TAB.ER PO SCH (09:00)
[2022-08-03] MEDS ORDERED: ASPIRIN 81 MG PO SCH (09:00)
[2022-08-03 09:13] LABS: BUN/Creat Ratio 16.38 Ratio (12.00-20.00); Blood Urea Nitrogen 13.1 mg/dL (9.0-27.0); Calcium 8.1 mg/dL (8.7-10.3); Chloride 102 mmol/L (96-109); Chol/HDL Ratio 1.82 Ratio; Glucose 138 mg/dL (70-110); Non-African American GFR(CKD) 74.2 (60.0-200.0); Potassium 3.2 mmol/L (3.5-5.5); Sodium 140 mmol/L (135-145); VLDL Calculation 14.82 mg/dL (5.00-40.00)
--- NOTE | 2022-08-03 09:59 | P.CRDCN ---
History of Present Illness Consult date: 08/03/22 Consult reason: atrial fibrillation History of present illness: The patient is a 71-year-old female, followed by Dr. Adan, with a history of CAD status post stenting of the RCA, history of COPD, paroxysmal atrial fibrillation and active tobacco use and dependence. She was hospitalized earlier this month for acute diastolic heart failure, COPD exacerbation and paroxysmal atrial fibrillation. She was started on amiodarone and beta jp was increased. Patient developed palpitations and shortness of breath, felt a little lightheaded and dizzy. Her pulse was 180 at home. She denies any loss of consciousness and no chest pain. Patient states that she has been taking all of her medications exactly as prescribed. She is status post potassium and magnesium replacement. Patient presented with HR 147 EKG #1 sinus rhythm, #2 atrial fibrillation at 131 bpm, #3 sinus bradycardia Stress test according to her in the office recently but the records are not available. In December of this year she had no evidence of stress-induced ischemia and her left ventricle systolic function by echocardiography was normal. Cardiac cath and stenting of her RCA in November [address] Encarnacion using a 5.0 bare metal stent. 07/31/2022 2-D echo with Doppler study was done and showed normal LV systolic function with mild MR and TR. Home cardiac medications: Amiodarone 200 mg twice daily, aspirin 81 mg daily, Lipitor 40 mg daily, Lasix 20 mg daily, Toprol-XL 25 mg twice daily, Xarelto 20 mg at bedtime. Review of system: Respiratory status: She has chronic dyspnea on exertion with prior history of COPD Cardiac: palpitations, little lightheaded GI: She denies any GI bleeding, no nausea or vomiting system: She has no dysuria or hematuria Nervous system she has no history of stroke or seizure. PHYSICAL EXAMINATION: 71-year-old female, alert oriented no apparent distress. Blood pressure 137/76 heart rate 61 Head: Normocephalic Eyes: Sclerae nonicteric Neck: Good carotid upstroke with no bruit or JVD LUNGS: Decreased air exchange bilaterally with no wheezes HEART: Regular rate and rhythm, S1, S2. No S3. No systolic murmur ABDOMEN: Soft, nontender, no organomegaly EXTREMETIES: No edema IMPRESSION: 1. Paroxysmal atrial fibrillation, back in sinus mechanism, anticoagulated 2. History of CAD with no evidence of acute coronary syndrome 3. Chronic tobacco use with COPD 4. History of hypertension PLAN: 1. Increase amiodarone to 400 mg bid 2. Continue anticoagulation 3. Continue increased beta jp at 37.5 mg bid 4. Continue other cardiac medications 5. The importance of smoking cessation was discussed with the patient and her daughter 6. Patient is cleared for discharge home from Cardiology. Continue increased doses of amiodarone and BB. Follow up with Dr. Adan in one week. Nurse practitioner note has been reviewed, I agree with the documented findings and plan of care. Patient was seen and examined. Past Medical History Past Medical History: Atrial Fibrillation, Coronary Artery Disease (CAD), COPD, Hyperlipidemia, Hypertension, Rheumatoid Arthritis (RA), Supraventricular Tachycardia (SVT), Thyroid Disorder Additional Past Medical History / Comment(s): CAD post NSTEMI with PCI of the RCA. History of Any Multi-Drug Resistant Organisms: MRSA, Other MDRO Date of last positivie culture/infection: 2006 MDRO Source:: Right leg Past Surgical History: Appendectomy, Section, Cholecystectomy, Heart Catheterization With Stent, Hysterectomy, Orthopedic Surgery Additional Past Surgical History / Comment(s): rt hip replacement 12/16/21 Past Anesthesia/Blood Transfusion Reactions: No Reported Reaction Date of Last Stent Placement:: 12/01 Past Psychological History: No Psychological Hx Reported Smoking Status: Current every day smoker Past Alcohol Use History: None Reported Past Drug Use History: None Reported - Past Family History Father Family Medical History: Cancer Additional Family Medical History / Comment(s): Father at age 51 from lung cancer with metastatic disease. Mother Family Medical History: Rheumatoid Arthritis (RA) Additional Family Medical History / Comment(s): Mother at age 77 from old age but had history of rheumatoid arthritis. Brother(s) Additional Family Medical History / Comment(s): Patient had 1 brother that from complications of agent orange. Daughter(s) Additional Family Medical History / Comment(s): Patient has 3 children with no major medical problems. Sister(s) Family Medical History: Renal Disease, Vascular Disorder Medications and Allergies Home Medications Medication Instructions Recorded Confirmed Type Levothyroxine Sodium [Synthroid] 75 mcg PO DAILY 04/13/17 08/02/22 History Rivaroxaban [Xarelto] 20 mg PO HS 07/18/22 08/02/22 History Aspirin 81 mg PO DAILY 30 Days #30 tab 07/28/22 08/02/22 Rx Atorvastatin [Lipitor] 40 mg PO DAILY 30 Days #30 tab 07/28/22 08/02/22 Rx Metoprolol Succinate (ER) [Toprol 25 mg PO BID 30 Days #60 tab 07/28/22 08/02/22 Rx XL] Amiodarone HCl [Pacerone] 200 mg PO BID #60 tablet 08/01/22 08/02/22 Rx Famotidine [Pepcid] 20 mg PO BID #60 tab 08/01/22 08/02/22 Rx Furosemide [Lasix] 20 mg PO DAILY #30 tab 08/01/22 08/02/22 Rx Nicotine 21Mg/24Hr Patch [Habitrol] 1 patch TRANSDERM DAILY #7 patch 08/01/22 08/02/22 Rx Allergies Allergy/AdvReac Type Severity Reaction Status Date / Time adhesive tape Allergy Rash/Hives Verified 08/02/22 13:00 iodine Allergy Anaphylaxis Verified 08/02/22 13:00 latex Allergy Rash/Hives Verified 08/02/22 13:00 sulfamethoxazole Allergy Unknown Verified 08/02/22 13:00 [From Bactrim] trimethoprim [From Bactrim] Allergy Unknown Verified 08/02/22 13:00 diphenhydramine AdvReac Confusion Verified 08/02/22 17:35 [From Benadryl] STEROIDS AdvReac Severe Confusion Uncoded 08/02/22 13:00 Physical Exam Vitals: Vital Signs Temp Pulse Pulse Resp BP BP Pulse Ox 08/03/22 02:20 98.5 F 75 17 116/73 94 L 08/02/22 19:30 98.1 F 60 17 111/64 93 L 08/02/22 19:24 94 L 08/02/22 15:51 98.2 F 69 20 102/63 95 08/02/22 15:30 71 18 94/61 96 08/02/22 13:23 66 18 96/59 94 L 08/02/22 12:20 70 18 08/02/22 11:39 98 F 147 H 20 91/70 94 L Intake and Output 08/02/22 08/03/22 08/03/22 22:59 06:59 14:59 Other: Voiding Method Toilet Toilet # Voids 1 1 Weight 77.111 kg Results 08/02/22 12:03 08/03/22 05:37 Cardiac Enzymes 08/02/22 08/02/22 08/02/22 Range/Units 12:03 12:03 15:25 AST 31 (14-36) U/L Troponin I <0.012 0.026 (0.000-0.034) ng/mL 08/02/22 Range/Units 18:10 AST (14-36) U/L Troponin I 0.036 H* (0.000-0.034) ng/mL Coagulation 08/02/22 Range/Units 12:03 PT 11.0 (9.0-12.0) sec APTT 25.7 (22.0-30.0) sec CBC 08/02/22 Range/Units 12:03 WBC 11.5 H (3.8-10.6) k/uL RBC 4.88 (3.80-5.40) m/uL Hgb 12.3 (11.4-16.0) gm/dL Hct 39.5 (34.0-46.0) % Plt Count 296 (150-450) k/uL Comprehensive Metabolic Panel 08/02/22 Range/Units 12:03 Sodium 139 (137-145) mmol/L Potassium 3.4 L (3.5-5.1) mmol/L Chloride 99 (98-107) mmol/L Carbon Dioxide 31 H (22-30) mmol/L BUN 17 (7-17) mg/dL Creatinine 0.78 (0.52-1.04) mg/dL Glucose 233 H (74-99) mg/dL Calcium 8.4 (8.4-10.2) mg/dL AST 31 (14-36) U/L ALT 25 (4-34) U/L Alkaline Phosphatase 93 (38-126) U/L Total Protein 7.1 (6.3-8.2) g/dL Albumin 4.0 (3.5-5.0) g/dL Current Medications Generic Name Dose Route Start Last Admin Trade Name Freq PRN Reason Stop Dose Admin Amiodarone HCl 200 mg 08/02/22 21:00 08/02/22 20:51 Amiodarone 200 Mg Tab PO 200 mg BID [facility] Administration Aspirin 81 mg 08/03/22 09:00 Aspirin 81 Mg PO DAILY [facility] Atorvastatin Calcium 40 mg 08/02/22 14:45 08/02/22 15:07 Atorvastatin 40 Mg Tab PO 40 mg DAILY DON[facility] Administration Famotidine 20 mg 08/02/22 21:00 08/02/22 20:51 Famotidine 20 Mg Tab PO 20 mg BID DON[facility] Administration Furosemide 20 mg 08/03/22 09:00 Furosemide 20 Mg Tab PO DAILY DONAVON Levothyroxine Sodium 75 mcg 08/03/22 06:30 08/03/22 05:41 Levothyroxine 75 Mcg Tab PO 75 mcg DAILY@0630 DONAV[facility] Administration Metoprolol Succinate 37.5 mg 08/02/22 21:00 08/02/22 20:51 Metoprolol Succinate (Er) 25 Mg Tab.Er.24h PO 37.5 mg BID DONAVON Administration Miscellaneous Information 1 each 08/03/22 02:12 Magnesium Replacement Protocol 1 Each Misc MISCELLANE DAILY PRN Per Protocol Protocol Miscellaneous Information 1 each 08/03/22 02:12 Potassium Replacement Protocol 1 Each Misc MISCELLANE DAILY PRN Per Protocol Protocol Nicotine 1 patch 08/02/22 14:45 08/02/22 15:06 Nicotine 21mg/24hr Patch TRANSDERM 1 patch DAILY DONAVON Administration Nitroglycerin 0.4 mg 08/02/22 13:53 Nitroglycerin Sl Tabs 0.4 Mg Tab SUBLINGUAL Q5M PRN Chest Pain Rivaroxaban 20 mg 08/02/22 21:00 08/02/22 20:52 Rivaroxaban 20 Mg Tab PO 20 mg HS DONAVON Administration Protocol Intake and Output 08/02/22 08/03/22 08/03/22 22:59 06:59 14:59 Other: Voiding Method Toilet Toilet # Voids 1 1 Weight 77.111 kg 08/02/22 12:03 08/02/22 12:03
--- NOTE | 2022-08-04 05:08 | P.DS ---
Providers Date of admission: 08/02/22 13:53 Expected date of discharge: 08/03/22 Attending physician: Cindy Villarreal Consults: 08/02/22 13:53 Consult Physician Urgent Consulting Provider: [facility] Consult Reason/Comments: A. fib with rapid ventricular response Do you want consulting provider notified?: Yes Primary care physician: Jeramie Watts [facility] Course: Final diagnosis Atrial fibrillation with RVR, currently rate controlled Shortness of breath secondary to above, improved Hypomagnesemia, improved Hypokalemia, improved History of coronary artery disease with previous PCI History of congestive heart failure, chronic with diastolic dysfunction, not in exacerbation History of paroxysmal atrial fibrillation COPD, not in exacerbation Hyperlipidemia Hypertension Rheumatoid arthritis Continued ongoing nicotine dependence GI prophylaxis DVT prophylaxis, on Xarelto Full code Discharge disposition Patient is being discharged in a stable condition with guarded prognosis to home. Patient will follow-up with in the outpatient setting upon discharge. Patient is to also follow-up with Dr. Adan in the clinic today at her scheduled appointment. Patient is to continue with looking cessation along with risk factor modifications. Total time taken is greater than 35 minutes. Hospital course This is a 71-year-old female who was recently admitted with atrial fibrillation with RVR and associated shortness of breath. Patient was resumed on home medications and anticoagulation and converted feeling much better. Patient was evaluated by cardiology recommending outpatient follow-up. Patient does have an appointment with Dr. Adan in the clinic this afternoon about getting there. Patient has been cleared by cardiology today for discharge. Discussed diet and risk factor modifications and continued smoking cessation. Currently no reports of chest pain, shortness of breath, or palpitations. Patient is afebrile. No reports of nausea or vomiting and patient is tolerating diet. Patient will be discharged home today. Guarded prognosis as patient has had multiple hospitalizations this past week Physical exam: Gen: This is a 71-year-old female who is awake, alert and oriented 3, well- developed, well-nourished HEENT: Head is atraumatic, normocephalic. Pupils equal, round. Sclerae is anicteric. NECK: Supple. No JVD. No lymphadenopathy. No thyromegaly. LUNGS: Clear to auscultation. No wheezes or rhonchi. No intercostal retractions. HEART: S1, S2 are muffled ABDOMEN: Soft. Bowel sounds are present. No masses. No tenderness. EXTREMITIES: No pedal edema. No calf tenderness. NEUROLOGICAL: Patient is awake, alert and oriented x3. Cranial nerves 2 through 12 are grossly intact. Please refer to medication reconciliation sheet for a list of medications. The impression and plan of care has been dictated by Leigha Martinez, Nurse Practitioner as directed. Dr. Phil MD I have performed a history and examination and MDM of this patient, discussed the same with the dictator, and agree with the dictator's assessment and plan as written ,documented as a scribe. Based on total visit time, I have performed more than 50% of the visit. Patient Condition at Discharge: Fair Plan - Discharge Summary Discharge Rx Participant: No New Discharge Prescriptions: New Potassium Chloride ER [K-Dur 20] 20 meq PO DAILY 30 Days #30 tab Continue Levothyroxine Sodium [Synthroid] 75 mcg PO DAILY Rivaroxaban [Xarelto] 20 mg PO HS Aspirin 81 mg PO DAILY 30 Days #30 tab Atorvastatin [Lipitor] 40 mg PO DAILY 30 Days #30 tab Nicotine 21Mg/24Hr Patch [Habitrol] 1 patch TRANSDERM DAILY #7 patch Famotidine [Pepcid] 20 mg PO BID #60 tab Furosemide [Lasix] 20 mg PO DAILY #30 tab No Action Amiodarone [Cordarone] 400 mg PO BID Metoprolol Succinate [Metoprolol Succinate ER] 37.5 mg PO BID Discharge Medication List Levothyroxine Sodium [Synthroid] 75 mcg PO DAILY 04/13/17 [History] Rivaroxaban [Xarelto] 20 mg PO HS 07/18/22 [History] Aspirin 81 mg PO DAILY 30 Days #30 tab 07/28/22 [Rx] Atorvastatin [Lipitor] 40 mg PO DAILY 30 Days #30 tab 07/28/22 [Rx] Famotidine [Pepcid] 20 mg PO BID #60 tab 08/01/22 [Rx] Furosemide [Lasix] 20 mg PO DAILY #30 tab 08/01/22 [Rx] Nicotine 21Mg/24Hr Patch [Habitrol] 1 patch TRANSDERM DAILY #7 patch 08/01/22 [Rx] Amiodarone [Cordarone] 400 mg PO BID 08/03/22 [History] Metoprolol Succinate [Metoprolol Succinate ER] 37.5 mg PO BID 08/03/22 [History] Potassium Chloride ER [K-Dur 20] 20 meq PO DAILY 30 Days #30 tab 08/03/22 [Rx] Follow up Appointment(s)/Referral(s): Alan Adan DO [STAFF PHYSICIAN] - 08/03/22 1:45 pm Jeramie Watts DO [Primary Care Provider] - 1-2 days Patient Instructions/Handouts: A-fib (Atrial Fibrillation) (DC) Activity/Diet/Wound Care/Special Instructions: Activity Limited until follow-up Follow-up with cardiology at your scheduled appointment today Follow-up pulmonary outpatient Follow-up with primary care provider on discharge Continue taking medications as prescribed Diet modifications as discussed Discharge Disposition: HOME SELF-CARE
== END 2022-08-03 11:25 | disposition home or self-care (01) ==
LOC: EC 11:30 → INTOOBSV 13:53 → 3SCARD 13:53 → 6NMEDSUR 14:44
PROVIDERS: ADMIT Internal Medicine; ATTEND Internal Medicine
DX: I48.0 Paroxysmal atrial fibrillation (principal); I25.10 Atherosclerotic heart disease of native coronary artery without angina pectoris; J44.9 Chronic obstructive pulmonary disease, unspecified; E78.5 Hyperlipidemia, unspecified; M06.9 Rheumatoid arthritis, unspecified; I47.1 Supraventricular tachycardia; E87.6 Hypokalemia; E83.42 Hypomagnesemia; I11.0 Hypertensive heart disease with heart failure; I50.32 Chronic diastolic (congestive) heart failure; I25.2 Old myocardial infarction; F17.200 Nicotine dependence, unspecified, uncomplicated; Z96.641 Presence of right artificial hip joint; Z95.5 Presence of coronary angioplasty implant and graft; Z79.890 Hormone replacement therapy; Z79.01 Long term (current) use of anticoagulants; Z79.82 Long term (current) use of aspirin; Z79.899 Other long term (current) drug therapy; Z91.040 Latex allergy status; Z80.1 Family history of malignant neoplasm of trachea, bronchus and lung; Z82.61 Family history of arthritis
CPT/HCPCS: 96374; 99285; 36415; 94760; 93005; 80061; 80053; 80048; 83735; 84132; 84484; 85025; 85610; 85730; 71046; G0378 ×2; S4990; J3475

== ENCOUNTER 2022-09-02 10:53 | Inpatient (IN) | payer MEDICARE ==
[2022-08-30 15:13] VITALS: BMI 26.9
[2022-09-02] MEDS ORDERED: SODIUM CHLORIDE 0.9% 1,000 ML IV ONE (11:07)
--- NOTE | 2022-09-02 12:03 | XR ---
EXAMINATION TYPE: XR chest 1V portable DATE OF EXAM: 09/02/2022 COMPARISON: 08/02/2022 HISTORY: Cough TECHNIQUE: Single frontal view of the chest is obtained. FINDINGS: There is no focal air space opacity, pleural effusion, or pneumothorax seen. There is enla rged and there is diffuse osteopenia with arthropathy of the AC joint. Atherosclerotic changes are mi ld cardiomegaly. Hypertrophic degenerative change spine. IMPRESSION: 1 cardiomegaly and COPD.
[2022-09-02 13:08] LABS: Anisocytosis Slight; HCT 29.1 % (34.0-46.0); Hypochromasia Marked; MCH 22.2 pg (25.0-35.0); MCHC 29.3 g/dL (31.0-37.0); Mean Platelet Volume 7.6; Microcytosis Slight; Platelet Count 273 k/uL (150-450); Poikilocytosis Moderate; RBC 3.85 m/uL (3.80-5.40); RDW 16.7 % (11.5-15.5); WBC 7.1 k/uL (3.8-10.6)
[2022-09-02 13:11] LABS: HGB 8.6 gm/dL (11.4-16.0); MCV 75.7 fL (80.0-100.0)
[2022-09-02 14:07] LABS: Hypochromasia (M) Present
[2022-09-02 14:08] LABS: Polychromasia Present
[2022-09-02 14:09] LABS: Basophilic Stippling Present
[2022-09-02 14:11] LABS: Lymphocytes # (M) 0.64 k/uL (1.0-4.8); Monocytes # (M) 0.07 k/uL (0-1.0); Neutrophils # (M) 6.39 k/uL (1.3-7.7); Neutrophils % (M) 90 %; Nucleated Red Blood Cells 0 /100 WBC (0-0); Total Cells Counted 100
[2022-09-02] MEDS: SODIUM CHLORIDE 0.9% 1,000 ML IV SCH (14:38)
--- NOTE | 2022-09-02 14:45 | P.CRDCN ---
History of Present Illness History of present illness: This is Dr. Arambula dictating a consult on this patient The patient was interviewed and examined IMPRESSION / ASSESSMENT: Congestive heart failure with shortness of breath or lower extremity edema and JVD Severe anemia, drop in hemoglobin from baseline, recent onset. Hemoglobin is 12.3 in July Persistent atrial fibrillation with RVR, currently on amiodarone 200 mg by mouth daily and maintain sinus rhythm Recurrent dizzy spells Known coronary artery disease status post stenting to the RCA Current smoker Severe COPD PLAN: In view of her symptoms of congestive heart failure at this time we will cancel A. fib ablation I spoke to Dr. zuluaga, who was covering for Dr. Watts We will admit her for evaluation of anemia of recent onset and management of congestive heart failure Hold xarelto Continue amiodarone 100 mg by mouth daily Admitted to 3 S. for evaluation and management of the above HPI Patient complains of being very dizzy and weak According to her daughter, yesterday she is complaining of severe epigastric pain and took Mylanta He has been a drop in her hemoglobin from July On August 18 her hemoglobin was 7.7. Today it is 8.6 She looks pale She has bilateral lower extremity edema shortness of breath and obvious JVD ROS: No fever chills or rigors, no cough, phlegm or expectoration, no nausea, vomiting or diarrhea, no hematuria, dysuria, no musculoskeletal complaints, no strokes or seizures, no skin lesions. EXAMINATION: Blood pressure 130s and 71 mmHg pulse rate in the 60s and 70s, sinus mechanism Afebrile Breath sounds are reduced bilaterally Past JVD Heart sounds soft Bilateral lower extremity edema REVIEW OF LABS, ECG & MEDICAL DATA WHITE count 7.1, hemoglobin 8.6, NT proBNP 1100 Current medications include xarelto, potassium, Synthroid, Lasix, Pepcid, Lipitor, metoprolol, amiodarone 100 mg daily and nicotine patch Past Medical History Past Medical History: Atrial Fibrillation, Coronary Artery Disease (CAD), COPD, Hyperlipidemia, Hypertension, Myocardial Infarction ([place]), Rheumatoid Arthritis (RA), Supraventricular Tachycardia (SVT), Thyroid Disorder Additional Past Medical History / Comment(s): See Dr. Arambula's H&P. Last Myocardial Infarction Date:: 2018 History of Any Multi-Drug Resistant Organisms: MRSA, Other MDRO Date of last positivie culture/infection: 2006 MDRO Source:: Right leg Past Surgical History: Appendectomy, Section, Cholecystectomy, Heart Catheterization With Stent, Hysterectomy, Orthopedic Surgery Additional Past Surgical History / Comment(s): rt hip replacement 12/16/21 Past Anesthesia/Blood Transfusion Reactions: No Reported Reaction Date of Last Stent Placement:: 12/01 Past Psychological History: No Psychological Hx Reported Additional Psychological History / Comment(s): passed 11/2019 from covid- lives alone now Smoking Status: Current some day smoker Past Alcohol Use History: None Reported Additional Past Alcohol Use History / Comment(s): smokes half pack a day Past Drug Use History: None Reported Additional Drug Use History / Comment(s): CBD oil for RA. - Past Family History Father Family Medical History: Cancer Additional Family Medical History / Comment(s): Father at age 51 from lung cancer with metastatic disease. Mother Family Medical History: Rheumatoid Arthritis (RA) Additional Family Medical History / Comment(s): Mother at age 77 from old age but had history of rheumatoid arthritis. Brother(s) Additional Family Medical History / Comment(s): Patient had 1 brother that from complications of agent orange. Daughter(s) Additional Family Medical History / Comment(s): Patient has 3 children with no major medical problems. Sister(s) Family Medical History: Renal Disease, Vascular Disorder Medications and Allergies Home Medications Medication Instructions Recorded Confirmed Type Levothyroxine Sodium [Synthroid] 75 mcg PO DAILY 04/13/17 09/02/22 History Rivaroxaban [Xarelto] 20 mg PO HS 07/18/22 09/02/22 History Famotidine [Pepcid] 20 mg PO BID #60 tab 08/01/22 09/02/22 Rx Furosemide [Lasix] 20 mg PO DAILY #30 tab 08/01/22 09/02/22 Rx Nicotine 21Mg/24Hr Patch [Habitrol] 1 patch TRANSDERM DAILY #7 patch 08/01/22 08/30/22 Rx Amiodarone [Cordarone] 100 mg PO HS 08/03/22 09/02/22 History Metoprolol Succinate [Metoprolol 12.5 mg PO BID 08/03/22 09/02/22 History Succinate ER] Potassium Chloride ER [K-Dur 20] 20 meq PO DAILY 30 Days #30 tab 08/03/22 09/02/22 Rx Atorvastatin [Lipitor] 40 mg PO HS 09/02/22 09/02/22 History Allergies Allergy/AdvReac Type Severity Reaction Status Date / Time adhesive tape Allergy Rash/Hives Verified 08/30/22 14:42 iodine Allergy Anaphylaxis Verified 08/30/22 14:42 latex Allergy Rash/Hives Verified 08/30/22 14:42 sulfamethoxazole Allergy Rash/Hives Verified 08/30/22 14:43 [From Bactrim] trimethoprim [From Bactrim] Allergy Rash/Hives Verified 08/30/22 14:43 diphenhydramine AdvReac Confusion Verified 08/30/22 14:42 [From Benadryl] Physical Exam Vitals: Vital Signs Temp Pulse Resp BP Pulse Ox 09/02/22 14:18 98.2 F 67 20 128/71 92 L 09/02/22 12:08 99 09/02/22 11:33 98.7 F 67 18 159/70 86 L Intake and Output 09/01/22 09/02/22 09/02/22 22:59 06:59 14:59 Intake Total 240 Balance 240 Intake: Oral 240 Other: # Voids 1 Weight 78.9 kg Results 09/02/22 11:20 CBC 09/02/22 Range/Units 11:20 WBC 7.1 (3.8-10.6) k/uL RBC 3.85 (3.80-5.40) m/uL Hgb 8.6 L D (11.4-16.0) gm/dL Hct 29.1 L (34.0-46.0) % Plt Count 273 (150-450) k/uL Current Medications Generic Name Dose Route Start Last Admin Trade Name Freq PRN Reason Stop Dose Admin Sodium Chloride 1,000 mls @ 20 mls/hr 09/02/22 05:54 09/02/22 14:38 Saline 0.9% IV 10/02/22 05:55 Not Given .Q24H DONAVON Intake and Output 09/01/22 09/02/22 09/02/22 22:59 06:59 14:59 Intake Total 240 Balance 240 Intake: Oral 240 Other: # Voids 1 Weight 78.9 kg Patient Weight 09/03/22 06:59 Weight 78.9 kg 09/02/22 11:20
--- NOTE | 2022-09-02 14:47 | P.PCN ---
Preoperative Diagnosis: Procedures canceled on account of congestive heart failure symptoms with severe anemia Discussed with anesthesia Discussed the patient and her daughters Admitted to 3 S. for evaluation Discussed with dr zuluaga
[2022-09-02] MEDS: LEVOTHYROXINE 75 MCG TAB PO SCH (15:13)
[2022-09-02] MEDS: FUROSEMIDE 20 MG TAB PO SCH (15:44)
[2022-09-02] MEDS: NICOTINE 21MG/24HR PATCH TRANSDERM SCH (15:44)
--- NOTE | 2022-09-02 15:50 | XR ---
EXAMINATION TYPE: XR chest 1V portable DATE OF EXAM: 09/02/2022 COMPARISON: 09/02/2022 HISTORY: Shortness of breath TECHNIQUE: Single frontal view of the chest is obtained. FINDINGS: There is no focal air space opacity, pleural effusion, or pneumothorax seen. The cardiac silhouette size is within normal limits. The osseous structures are intact. Heart is prominent ther e is hyperinflation. There is no overt failure. Atherosclerotic change aorta. Diffuse osteopenia. Art hropathy of the shoulders. IMPRESSION: 1. COPD 2. No overt failure.
[2022-09-02 15:58] LABS: Calcium 8.1 mg/dL (8.4-10.2); Potassium 4.2 mmol/L (3.5-5.1)
[2022-09-02] MEDS: AMIODARONE 100 MG TAB PO SCH (20:59)
[2022-09-02] MEDS: ATORVASTATIN 40 MG TAB PO SCH (20:59)
[2022-09-02] MEDS: METOPROLOL SUCCINATE (ER) 25 MG TAB.ER.24H PO SCH (20:59)
[2022-09-02] MEDS: FAMOTIDINE 20 MG TAB PO SCH (21:00)
[2022-09-02] MEDS ORDERED: RIVAROXABAN 20 MG TAB PO SCH (21:00)
[2022-09-03] MEDS: SODIUM CHLORIDE 0.9% 1,000 ML IV SCH (05:58)
[2022-09-03] MEDS: LEVOTHYROXINE 75 MCG TAB PO SCH (06:19)
--- NOTE | 2022-09-03 06:30 | P.HPIM ---
History of Present Illness H&P Date: 09/02/22 This is a 71-year-old female who presented today outpatient scheduled with cardiology Dr. Arambula for possible ablation and some initial labs ordered and showing a drop in hemoglobin and is 8.6 today with concerns for anemia also having 2-3+ pitting edema of lower extremities with concerns for acute CHF exacerbation recommend being admitted and monitored with follow-up on anemia. Patient denies history of anemia and after looking at previous admissions and lab values hemoglobin has been up and down although was above-10-12 most recently in July. August 18 labs were drawn with a hemoglobin of 7.7. Patient has been recently started on Xarelto over the last 2 months for atrial fibrillation. Patient denies any active bleeding denies any blood in the stool. Patient follows with Dr. Vazquez in the outpatient setting with a medical history of COPD, paroxysmal atrial fibrillation, previous NE, hypertension, hyperlipidemia, coronary artery disease with stenting, rheumatoid arthritis, svt, thyroid disorder. Patient admits to continuing tobacco use although denies alcohol or any other illicit drug use. Chest x-ray shows no overt failure and patient will be admitted for CHF exacerbation and also concerns for anemia. General surgery consulted and may need hematology on consult for further anemia workup. Cardiology will follow. Review Of Systems: Constitutional: No fever, no chills, no night sweats. No weight change. rePorts of feeling generalized weakness, fatigue and lethargy. No daytime sleepiness. EENT: No headache. No blurred vision or double vision, no loss of vision. No loss of Hearing, no ringing in the ears, no dizziness. No nasal drainage or congestion. No epistaxis. No sore throat. Lungs: No shortness of breath, cough, no sputum production. No wheezing. Cardiovascular: No chest pain, reports lower extremity edema. No palpitations. No paroxysmal nocturnal dyspnea. No orthopnea. No lightheadedness or dizziness. No syncopal episodes. Abdominal: No abdominal pain. No nausea, vomiting. No diarrhea. No constipation. No bloody or tarry stools.. No loss of appetite. Genitourinary: No dysuria, increased frequency, urgency. No urinary retention. Musculoskeletal: No myalgias. No muscle weakness, reports some gait dysfunction due to swelling of lower extremities and feet, no frequent falls. No back pain. No neck pain. Integumentary: No wounds, no lesions. No rash or pruritus. No unusual bruising. No change in hair or nails. Neurologic: No aphasia. No facial droop. No change in mentation. No head injury. No headache. No paralysis. No paresthesia. Psychiatric: No depression. No anxiety. No mood swings. Endocrine: No abnormal blood sugars. No weight change. No excessive sweating or thirst. No cold intolerance. PHYSICAL EXAMINATION: GENERAL: The patient is alert and oriented x4, Well developed, well nourished. HEENT: Pupils are round and equally reacting to light. EOMI. no scleral icterus. No conjunctival pallor. Normocephalic, atraumatic. No pharyngeal erythema. No thyromegaly. CARDIOVASCULAR: S1 and S2 muffled PULMONARY: diminished breath sounds bilaterally with no wheezing or rhonchi noted. ABDOMEN: soft. Non-tender on exam. non-distended, normoactive bowel sounds. No palpable organomegaly. MUSCULOSKELETAL: No joint swelling or deformity. EXTREMITIES: No cyanosis, clubbing, pedal edema 2-3 + pitting more so on the right and also some generalized edema noted of bilateral lower extremities 1-2+ pitting NEUROLOGICAL: Gross neurological examination did not reveal any focal deficits. SKIN: No rashes. Assessment: Mild shortness of breath with bilateral lower extremity pitting edema with concerns for acute on chronic CHF exacerbation Chronic hypoxic respiratory failure secondary to COPD and CHF, wears 2-3 L outpatient Anemia, of unknown etiology possibly a component of Xarelto use COPD, not in exacerbation Paroxysmal Atrial fibrillation Coronary artery disease with previous stenting Hypertension History of rheumatoid arthritis Hypothyroidism HyperLipidemia Continued ongoing nicotine abuse GI prophylaxis DVT prophylaxis Full code Plan: Recommend to continue with current medications and management cardiology following. Patient was an outpatient procedure for ablation with Dr Ralf pérez initial labs displayed a hemoglobin of 8.6 and was documented above 10 in July. Patient denies any blood loss or bleeding noted. Patient reports to feeling generally unwell with some episodes of dizziness and epigastric discomfort yesterday. Will consult general surgery or possibly hematology. Chest x-ray taken shows no acute process. Will review home medications and res ume. Cardiology recommending holding Xarelto for now. Home dose Lasix has been resumed. Recommend Jose wrapping lower extremities from the toes up to the knees and elevating while at rest. Instructed patient to monitor fluid restrictions closely given her failure history. Due to multiple complex medical issues, prognosis is guarded The impression and plan of care has been dictated by Leigha Martinez, nurse practitioner as directed. Dr. Phil MD I have performed a history and examination and MDM of this patient, discussed the same with the dictator, and agree with the dictator's assessment and plan as written ,documented as a scribe. Based on total visit time, I have performed more than 50% of the visit. Any additional findings or plans will be noted. Past Medical History Past Medical History: Atrial Fibrillation, Coronary Artery Disease (CAD), COPD, Hyperlipidemia, Hypertension, Myocardial Infarction ([place]), Rheumatoid Arthritis ([place]), Supraventricular Tachycardia (SVT), Thyroid Disorder Additional Past Medical History / Comment(s): See Dr. Arambula's H&P. Last Myocardial Infarction Date:: 2018 History of Any Multi-Drug Resistant Organisms: MRSA, Other MDRO Date of last positivie culture/infection: 2006 MDRO Source:: Right leg Past Surgical History: Appendectomy, Section, Cholecystectomy, Heart Catheterization With Stent, Hysterectomy, Orthopedic Surgery Additional Past Surgical History / Comment(s): rt hip replacement 12/16/21 Past Anesthesia/Blood Transfusion Reactions: No Reported Reaction Date of Last Stent Placement:: 12/01 Past Psychological History: No Psychological Hx Reported Additional Psychological History / Comment(s): passed 11/2019 from [facility]- lives alone now Smoking Status: Current some day smoker Past Alcohol Use History: None Reported Additional Past Alcohol Use History / Comment(s): smokes half pack a day Past Drug Use History: None Reported Additional Drug Use History / Comment(s): CBD oil for RA. - Past Family History Father Family Medical History: Cancer Additional Family Medical History / Comment(s): Father at age 51 from lung cancer with metastatic disease. Mother Family Medical History: Rheumatoid Arthritis (RA) Additional Family Medical History / Comment(s): Mother at age 77 from old age but had history of rheumatoid arthritis. Brother(s) Additional Family Medical History / Comment(s): Patient had 1 brother that from complications of agent orange. Daughter(s) Additional Family Medical History / Comment(s): Patient has 3 children with no major medical problems. Sister(s) Family Medical History: Renal Disease, Vascular Disorder Medications and Allergies Home Medications Medication Instructions Recorded Confirmed Type Levothyroxine Sodium [Synthroid] 75 mcg PO DAILY 04/13/17 09/02/22 History Rivaroxaban [Xarelto] 20 mg PO HS 07/18/22 09/02/22 History Famotidine [Pepcid] 20 mg PO BID #60 tab 08/01/22 09/02/22 Rx Furosemide [Lasix] 20 mg PO DAILY #30 tab 08/01/22 09/02/22 Rx Nicotine 21Mg/24Hr Patch [Habitrol] 1 patch TRANSDERM DAILY #7 patch 08/01/22 08/30/22 Rx Amiodarone [Cordarone] 100 mg PO HS 08/03/22 09/02/22 History Metoprolol Succinate [Metoprolol 12.5 mg PO BID 08/03/22 09/02/22 History Succinate ER] Potassium Chloride ER [K-Dur 20] 20 meq PO DAILY 30 Days #30 tab 08/03/22 09/02/22 Rx Atorvastatin [Lipitor] 40 mg PO HS 09/02/22 09/02/22 History Allergies Allergy/AdvReac Type Severity Reaction Status Date / Time adhesive tape Allergy Rash/Hives Verified 08/30/22 14:42 iodine Allergy Anaphylaxis Verified 08/30/22 14:42 latex Allergy Rash/Hives Verified 08/30/22 14:42 sulfamethoxazole Allergy Rash/Hives Verified 08/30/22 14:43 [From Bactrim] trimethoprim [From Bactrim] Allergy Rash/Hives Verified 08/30/22 14:43 diphenhydramine AdvReac Confusion Verified 08/30/22 14:42 [From Benadryl] Physical Exam Vitals: Vital Signs Temp Pulse Resp BP Pulse Ox 09/02/22 14:18 98.2 F 67 20 128/71 92 L 09/02/22 12:08 99 09/02/22 11:33 98.7 F 67 18 159/70 86 L Intake and Output 09/02/22 09/02/22 09/02/22 06:59 14:59 22:59 Intake Total 240 Balance 240 Intake: Oral 240 Other: # Voids 1 Weight 78.9 kg Results CBC & Chem 7: 09/02/22 11:20 09/02/22 15:13 Labs: Abnormal Lab Results - Last 24 Hours (Table) 09/02/22 Range/Units 11:20 Hgb 8.6 L D (11.4-16.0) gm/dL Hct 29.1 L (34.0-46.0) % MCV 75.7 L D (80.0-100.0) fL MCH 22.2 L (25.0-35.0) pg MCHC 29.3 L (31.0-37.0) g/dL RDW 16.7 H (11.5-15.5) % Lymphocytes # (Manual) 0.64 L (1.0-4.8) k/uL Thrombosis Risk Factor Assmnt - DVT/VTE Prophylaxis DVT/VTE Prophylaxis: Pharmacologic Prophylaxis ordered (Patient does take several toe cardiology recommending holding his patient was having lowered hemoglobin for evaluation) - Choose All That Apply Each Factor Represents 1 point: Abnormal pulmonary function (COPD), Obesity (BMI >25) Each Risk Factor Represents 2 Points: Age 61-74 years Thrombosis Risk Factor Assessment Total Risk Factor Score: 4 Thrombosis Risk Factor Assessment Level: Moderate Risk Assessment and Plan Time with Patient: Greater than 30
[2022-09-03 08:39] LABS: Anisocytosis Slight; Basophils # (A) 0.1 k/uL (0-0.2); Basophils % (A) 1 %; Eosinophils # (A) 0.2 k/uL (0-0.7); Eosinophils % (A) 2 %; HCT 25.8 % (34.0-46.0); HGB 7.4 gm/dL (11.4-16.0); Hypochromasia Marked; Lymphocytes # (A) 1.9 k/uL (1.0-4.8); Lymphocytes % (A) 23 %; MCH 21.7 pg (25.0-35.0); MCHC 28.6 g/dL (31.0-37.0); MCV 75.7 fL (80.0-100.0); Mean Platelet Volume 7.3; Microcytosis Slight; Monocytes # (A) 0.7 k/uL (0-1.0); Monocytes % (A) 8 %; Neutrophils # (A) 5.5 k/uL (1.3-7.7); Neutrophils % (A) 63 %; Platelet Count 269 k/uL (150-450); Poikilocytosis Moderate; RBC 3.41 m/uL (3.80-5.40); WBC 8.6 k/uL (3.8-10.6)
[2022-09-03 09:35] LABS: Poikilocytosis (M) Present; Polychromasia Present
[2022-09-03] MEDS: FUROSEMIDE 10 MG/ML 4 ML VIAL IV SCH ×2 (10:08→19:57)
[2022-09-03] MEDS: NICOTINE 21MG/24HR PATCH TRANSDERM SCH (10:08)
[2022-09-03] MEDS: FAMOTIDINE 20 MG TAB PO SCH ×2 (10:08→20:50)
[2022-09-03] MEDS: POTASSIUM CHLORIDE ER 20 MEQ TAB.ER PO SCH (10:08)
[2022-09-03] MEDS: METOPROLOL SUCCINATE (ER) 25 MG TAB.ER.24H PO SCH ×2 (12:01→20:51)
[2022-09-03] MEDS: PANTOPRAZOLE 40 MG/10 ML VIAL IVP SCH ×2 (12:04→21:22)
--- NOTE | 2022-09-03 13:12 | P.PN ---
Subjective Progress Note Date: 09/03/22 History of present illness: This is a 71-year-old female patient of Dr. Adan with past medical history of CAD status post stenting of the RCA, COPD, persistent atrial fibrillation and tobacco use and dependence. Patient was brought in as a scheduled atrial fibrillation ablation but once patient arrived she was diagnosed with acute heart failure and anemia and procedure was canceled. Patient was transferred to the cardiac stepdown unit and patient admitted to hospitalist. Patient continues to have significant lower extremity edema and has been on Lasix 40 mg IV every 12 hours. Telemetry is sinus rhythm in the 60s, blood pressure 99/61. Pulse ox 96% on 2 L nasal cannula. Patient has not home O2 dependent. Hemoglobin is 7.4. BMP will be ordered for tomorrow. Echocardiogram 07/31/2022 revealed normal size and systolic function, mild mitral and tricuspid regurgitation. Physical examination: Gen: This is a 71-year-old female. She is resting in bed and appears to be comfortable and in no acute distress. VS: reviewed HEENT: Head is atraumatic, normocephalic. Pupils equal, round. Sclerae is anicteric. NECK: Supple. No JVD. No lymphadenopathy. No thyromegaly. LUNGS: crackles bilateral bases. No intercostal retractions. HEART: Regular rate and rhythm. No murmur. ABDOMEN: Soft. Bowel sounds are present. No masses. No tenderness. EXTREMITIES: 3+ pedal edema. No calf tenderness. NEUROLOGICAL: Patient is awake, alert and oriented x3. Cranial nerves 2 through 12 are grossly intact. Assessment: Acute diastolic heart failure Anemia Persistent atrial fibrillation with RVR Recurrent dizzy spells Coronary artery disease with stenting of the RCA COPD Tobacco use and dependence Plan: Xarelto is on hold per Dr. Arambula Continue amiodarone 100 mg at bedtime Continue Lasix 40 mg IV every 12 hours Monitor electrolytes and renal function Further recommendations to follow based upon clinical course Thank you kindly for this consultation. Nurse practitioner note has been reviewed, I agree with documented findings and plan of care. Patient was seen and examined. Objective - Vital Signs Vital signs: Vital Signs Temp 98.0 F 09/03/22 03:55 Pulse 63 09/03/22 03:55 Resp 18 09/03/22 03:55 BP 130/70 01/20/23 03:55 Pulse Ox 92 L 09/03/22 03:55 FiO2 Intake & Output 09/02/22 09/03/22 09/03/22 18:59 06:59 18:59 Intake Total 1200 30 Balance 1200 30 Weight 78.9 kg 82.1 kg Intake: IV 30 Invasive Line 1 10 Invasive Line 2 20 Oral 1200 Other: Voiding Method Toilet Toilet # Voids 1 2 - Labs CBC & Chem 7: 09/03/22 07:12 09/02/22 15:13 Labs: Abnormal Lab Results - Last 24 Hours (Table) 09/02/22 09/02/22 Range/Units 11:20 15:13 Hgb 8.6 L D (11.4-16.0) gm/dL Hct 29.1 L (34.0-46.0) % MCV 75.7 L D (80.0-100.0) fL MCH 22.2 L (25.0-35.0) pg MCHC 29.3 L (31.0-37.0) g/dL RDW 16.7 H (11.5-15.5) % Lymphocytes # (Manual) 0.64 L (1.0-4.8) k/uL Glucose 196 H (74-99) mg/dL Calcium 8.1 L (8.4-10.2) mg/dL
--- NOTE | 2022-09-03 13:32 | P.GSCN ---
History of Present Illness Consult date: 09/03/22 History of present illness: CHIEF COMPLAINT: Anemia HISTORY OF PRESENT ILLNESS: This is a 71-year-old female who initially presented to Hospital for outpatient cardiac ablation for her atrial fibrillation. Lab work was completed that shown a low hemoglobin of 8.6 and her concern of signs of CHF exacerbation. Her cardiac ablation was then canceled. Patient is on Xar elto at home. Patient denies any blood in her stools or black stools. She does occasionally have intermittent epigastric burning. She reports that Mylanta and Tums with ice helps. She denies any NSAID use. Her last colonoscopy was 3 years ago and reported as negative. She was supposed to start on iron supplement outpatient but held off due to her cardiac procedure. Hemoglobin is currently 7.4. Surgical service consulted in regards to patient's anemia. Patient reports that her iron levels were low outpatient. Patient seen by cardiology. Place patient on IV Lasix for fluid overload. Patient seen and examined with Dr. gardner PAST MEDICAL HISTORY: See below PAST SURGICAL HISTORY: See below MEDICATIONS: See below ALLERGIES: See below SOCIAL HISTORY: No illicit drug use. REVIEW OF SYSTEMS: CONSTITUTIONAL: Denies fever or chills. HEENT: Denies blurred vision, vision changes, or eye pain. Denies hemoptysis CARDIOVASCULAR: Denies chest pain or pressure. RESPIRATORY: No shortness of breath. GASTROINTESTINAL: See HPI for pertinent findings HEMATOLOGIC: Denies bleeding disorders. GENITOURINARY: Denies any blood in urine or increased urinary frequency. SKIN: Denies pruitis. Denies rash. PHYSICAL EXAM: VITAL SIGNS: Reviewed GENERAL: Well-developed in no acute distress. HEENT: No sclera icterus. Extraocular movements grossly intact. Moist buccal mucosa. Head is atraumatic, normocephalic. No nasal drainage. ABDOMEN: Soft. Nondistended. Nontender NEUROLOGIC: Alert and oriented. Cranial nerves II through XII grossly intact. LABORATORY DATA: WBC is 8.6 hemoglobin 8.6 down to 7.4 platelets 369 Sodium is 140 potassium is 4.2 creatinine 0.94 Magnesium is 2 BNP 1100 IMAGING: Chest x-ray COPD and no overt failure ASSESSMENT: 1. Microcytic anemia with a known iron deficiency 2. History of atrial fibrillation on Xarelto at home 3. CHF exacerbation followed by cardiology PLAN: -Patient scheduled for EGD and colonoscopy on Tuesday with Dr. gardner -Check stool for occult blood -Continue to monitor hemoglobin -Continue monitor for any signs or symptoms of bleeding -Start IV Protonix -Continue to hold the Xarelto Physician Spooling Operator note has been reviewed by physician. Signing provider agrees with the documented findings, assessment, and plan of care. Past Medical History Past Medical History: Atrial Fibrillation, Coronary Artery Disease (CAD), COPD, Hyperlipidemia, Hypertension, Myocardial Infarction ([place]), Rheumatoid Arthritis (RA), Supraventricular Tachycardia (SVT), Thyroid Disorder Additional Past Medical History / Comment(s): See Dr. Arambula's H&P. Last Myocardial Infarction Date:: 2018 History of Any Multi-Drug Resistant Organisms: MRSA, Other MDRO Year Discovered:: 2006 MDRO Source:: Right leg Past Surgical History: Appendectomy, Section, Cholecystectomy, Heart Catheterization With Stent, Hysterectomy, Orthopedic Surgery Additional Past Surgical History / Comment(s): rt hip replacement 12/16/21 Past Anesthesia/Blood Transfusion Reactions: No Reported Reaction Date of Last Stent Placement:: 12/01 Past Psychological History: No Psychological Hx Reported Additional Psychological History / Comment(s): passed 11/2019 from [employer] [place] alone now Smoking Status: Current some day smoker Past Alcohol Use History: None Reported Additional Past Alcohol Use History / Comment(s): smokes half pack a day Past Drug Use History: None Reported Additional Drug Use History / Comment(s): CBD oil for RA. - Past Family History Father Family Medical History: Cancer Additional Family Medical History / Comment(s): Father at age 51 from lung cancer with metastatic disease. Mother Family Medical History: Rheumatoid Arthritis (RA) Additional Family Medical History / Comment(s): Mother at age 77 from old age but had history of rheumatoid arthritis. Brother(s) Additional Family Medical History / Comment(s): Patient had 1 brother that from complications of agent orange. Daughter(s) Additional Family Medical History / Comment(s): Patient has 3 children with no major medical problems. Sister(s) Family Medical History: Renal Disease, Vascular Disorder Medications and Allergies Home Medications Medication Instructions Recorded Confirmed Type Levothyroxine Sodium [Synthroid] 75 mcg PO DAILY 04/13/17 09/02/22 History Rivaroxaban [Xarelto] 20 mg PO HS 07/18/22 09/02/22 History Famotidine [Pepcid] 20 mg PO BID #60 tab 08/01/22 09/02/22 Rx Furosemide [Lasix] 20 mg PO DAILY #30 tab 08/01/22 09/02/22 Rx Nicotine 21Mg/24Hr Patch [Habitrol] 1 patch TRANSDERM DAILY #7 patch 08/01/22 08/30/22 Rx Amiodarone [Cordarone] 100 mg PO HS 08/03/22 09/02/22 History Metoprolol Succinate [Metoprolol 12.5 mg PO BID 08/03/22 09/02/22 History Succinate ER] Potassium Chloride ER [K-Dur 20] 20 meq PO DAILY 30 Days #30 tab 08/03/22 09/02/22 Rx Atorvastatin [Lipitor] 40 mg PO HS 09/02/22 09/02/22 History Allergies Allergy/AdvReac Type Severity Reaction Status Date / Time adhesive tape Allergy Rash/Hives Verified 08/30/22 14:42 iodine Allergy Anaphylaxis Verified 08/30/22 14:42 latex Allergy Rash/Hives Verified 08/30/22 14:42 sulfamethoxazole Allergy Rash/Hives Verified 08/30/22 14:43 [From Bactrim] trimethoprim [From Bactrim] Allergy Rash/Hives Verified 08/30/22 14:43 diphenhydramine AdvReac Confusion Verified 08/30/22 14:42 [From Benadryl] Surgical - Exam Vital Signs Temp Pulse Resp BP Pulse Ox 98.7 F 67 18 159/70 86 L 09/02/22 11:33 09/02/22 11:33 09/02/22 11:33 09/02/22 11:33 09/02/22 11:33 Results - Labs 09/03/22 07:12 09/02/22 15:13 Abnormal Lab Results - Last 24 Hours (Table) 09/02/22 09/02/22 09/03/22 Range/Units 11:20 15:13 07:12 RBC 3.41 L (3.80-5.40) m/uL Hgb 8.6 L D 7.4 L (11.4-16.0) gm/dL Hct 29.1 L 25.8 L (34.0-46.0) % MCV 75.7 L D 75.7 L (80.0-100.0) fL MCH 22.2 L 21.7 L (25.0-35.0) pg MCHC 29.3 L 28.6 L (31.0-37.0) g/dL RDW 16.7 H 17.0 H (11.5-15.5) % Lymphocytes # (Manual) 0.64 L (1.0-4.8) k/uL Glucose 196 H (74-99) mg/dL Calcium 8.1 L (8.4-10.2) mg/dL Diabetes panel 09/02/22 Range/Units 15:13 Sodium 140 (137-145) mmol/L Potassium 4.2 (3.5-5.1) mmol/L Chloride 104 (98-107) mmol/L Carbon Dioxide 30 (22-30) mmol/L BUN 14 (7-17) mg/dL Creatinine 0.94 (0.52-1.04) mg/dL Glucose 196 H (74-99) mg/dL Calcium 8.1 L (8.4-10.2) mg/dL Calcium panel 09/02/22 Range/Units 15:13 Calcium 8.1 L (8.4-10.2) mg/dL Pituitary panel 09/02/22 Range/Units 15:13 Sodium 140 (137-145) mmol/L Potassium 4.2 (3.5-5.1) mmol/L Chloride 104 (98-107) mmol/L Carbon Dioxide 30 (22-30) mmol/L BUN 14 (7-17) mg/dL Creatinine 0.94 (0.52-1.04) mg/dL Glucose 196 H (74-99) mg/dL Calcium 8.1 L (8.4-10.2) mg/dL Adrenal panel 09/02/22 Range/Units 15:13 Sodium 140 (137-145) mmol/L Potassium 4.2 (3.5-5.1) mmol/L Chloride 104 (98-107) mmol/L Carbon Dioxide 30 (22-30) mmol/L BUN 14 (7-17) mg/dL Creatinine 0.94 (0.52-1.04) mg/dL Glucose 196 H (74-99) mg/dL Calcium 8.1 L (8.4-10.2) mg/dL
[2022-09-03] MEDS: FUROSEMIDE 20 MG TAB PO SCH (14:52)
--- NOTE | 2022-09-03 15:39 | P.PN ---
Subjective Progress Note Date: 09/03/22 This is a 71-year-old female who presented today outpatient scheduled with cardiology Dr. Arambula for possible ablation and some initial labs ordered and showing a drop in hemoglobin and is 8.6 today with concerns for anemia also having 2-3+ pitting edema of lower extremities with concerns for acute CHF exacerbation recommend being admitted and monitored with follow-up on anemia. Patient denies history of anemia and after looking at previous admissions and lab values hemoglobin has been up and down although was above-10-12 most recently in July. August 18 labs were drawn with a hemoglobin of 7.7. Patient has been recently started on Xarelto over the last 2 months for atrial fibrillation. Patient denies any active bleeding denies any blood in the stool. Patient follows with Dr. Vazquez in the outpatient setting with a medical history of COPD, paroxysmal atrial fibrillation, previous [place], hypertension, hyperlipidemia, coronary artery disease with stenting, rheumatoid arthritis, svt, thyroid disorder. Patient admits to continuing tobacco use although denies alcohol or any other illicit drug use. Chest x-ray shows no overt failure and patient will be admitted for CHF exacerbation and also concerns for anemia. General surgery consulted and may need hematology on consult for further anemia workup. Cardiology will follow. 09/03/2022 Patient is seen and evaluated in follow-up this morning with cardiology and general surgery following. Patient has been transitioned IV Lasix per cardiology and recommended to continue holding Xarelto. Hemoglobin dropped to 7.4 today and occult blood is ordered along with iron studies and pending at this time. General surgery evaluated the patient and will be undergoing EGD/colonoscopy this Tuesday with Dr. Lewis to monitor for any bleeding. Patient denies any blood in the stool or bleeding noted. Patient reports she has never received any transfusions. Patient reports she does have a history of low iron and is supposed to be taking iron supplements. Patient with some lower extremity edema recommend continue with Jose wraps and elevating while at rest. Encourage increase activity as tolerated. Patient denies chest pain or palpitations at this time and denies any nausea or vomiting. Patient is asking when she can go home. Review of systems: Constitutional: No reports of fatigue, fever, or chills Cardiovascular: No reports of chest pain or palpitations Respiratory: No reports of worsening shortness of breath or cough GI: No reports of nausea, vomiting, or diarrhea : No reports of dysuria or retention Neurovascular: No reports of weakness or numbness All medications have been reviewed Active Medications Amiodarone HCl (Amiodarone 100 Mg Tab) 100 mg PO [facility] Last Admin: 09/02/22 20:59 Dose: 100 mg Atorvastatin Calcium (Atorvastatin 40 Mg Tab) 40 mg PO HS [facility] Last Admin: 09/02/22 20:59 Dose: 40 mg Famotidine (Famotidine 20 Mg Tab) 20 mg PO BID [facility] Last Admin: 09/03/22 10:08 Dose: 20 mg Furosemide (Furosemide 10 Mg/Ml 4 Ml Vial) 40 mg IV Q12HR [facility] Last Admin: 09/03/22 10:08 Dose: 40 mg Sodium Chloride (Saline 0.9%) 1,000 mls @ 20 mls/hr IV .Q24H [facility] Stop: 10/02/22 05:55 Last Admin: 09/03/22 05:58 Dose: Not Given Levothyroxine Sodium (Levothyroxine 75 Mcg Tab) 75 mcg PO 0630 [facility] Last Admin: 09/03/22 06:19 Dose: 75 mcg Metoprolol Succinate (Metoprolol Succinate (Er) 25 Mg Tab.Er.24h) 12.5 mg PO BID [facility] Last Admin: 09/03/22 12:01 Dose: 12.5 mg Nicotine (Nicotine 21mg/24hr Patch) 1 patch TRANSDERM DAILY [facility] Last Admin: 09/03/22 10:08 Dose: 1 patch Pantoprazole Sodium (Pantoprazole 40 Mg/10 Ml Vial) 40 mg IVP BID [facility] Last Admin: 09/03/22 12:04 Dose: 40 mg Polyethylene Glycol/Electrolytes (Peg 3350 (236 Gm/Btl) + Lytes 4,000 Ml Bottle) 4,000 ml PO ONCE ONE Stop: 09/05/22 09:01 Potassium Chloride (Potassium Chloride Er 20 Meq Tab.Er) 20 meq PO DAILY [facility] Last Admin: 09/03/22 10:08 Dose: 20 meq PHYSICAL EXAMINATION: GENERAL: The patient is alert and oriented x4, Well developed, well nourished. HEENT: Pupils are round and equally reacting to light. EOMI. no scleral icterus. No conjunctival pallor. Normocephalic, atraumatic. No pharyngeal erythema. No thyromegaly. CARDIOVASCULAR: S1 and S2 muffled PULMONARY: diminished breath sounds bilaterally with no wheezing or rhonchi noted. ABDOMEN: soft. Non-tender on exam. non-distended, normoactive bowel sounds. No palpable organomegaly. MUSCULOSKELETAL: No joint swelling or deformity. EXTREMITIES: No cyanosis, clubbing, pedal edema 1-2 + pitting more so on the right and also some generalized edema noted of bilateral lower extremities 1+ pitting NEUROLOGICAL: Gross neurological examination did not reveal any focal deficits. SKIN: No rashes. Pale Assessment: Mild shortness of breath with bilateral lower extremity pitting edema with conc erns for acute on chronic diastolic CHF exacerbation Acute hypoxic respiratory failure secondary to CHF exacerbation Anemia, of unknown etiology possibly a component of Xarelto use or chronic in nature, microcytic COPD, not in exacerbation Paroxysmal Atrial fibrillation Coronary artery disease with previous stenting Hypertension History of rheumatoid arthritis Hypothyroidism HyperLipidemia Continued ongoing nicotine abuse GI prophylaxis DVT prophylaxis Full code Plan: Recommend to continue with current medications and management cardiology following. Patient was an outpatient procedure for ablation with Dr Arambula and initial labs displayed a hemoglobin of 8.6 and was documented above 10 in July. Patient denies any blood loss or bleeding noted. Patient reports to feeling generally unwell with some episodes of dizziness and epigastric discomfort yesterday. General surgery evaluated the patient recommending to continue holding Xarelto for now and cardiology following as well and placed patient on IV Lasix for diuresis recommend follow-up labs in the a.m. Plan is for EGD/colonoscopy on Tuesday with Dr. Lewis and will await report. Recommend Jose wrapping lower extremities from the toes up to the knees and elevating while at rest. Instructed patient to monitor fluid restrictions closely given her failure history. Due to multiple complex medical issues, prognosis is guarded The impression and plan of care has been dictated by nurse Galen pra ctitioner as directed. Dr. Phil MD I have performed a history and examination and MDM of this patient, discussed the same with the dictator, and agree with the dictator's assessment and plan as written ,documented as a scribe. Based on total visit time, I have performed more than 50% of the visit. Any additional findings or plans will be noted. Objective - Vital Signs Vital signs: Vital Signs Temp 98.0 F 09/03/22 03:55 Pulse 63 09/03/22 03:55 Resp 18 09/03/22 03:55 BP 130/70 09/03/22 03:55 Pulse Ox 92 L 09/03/22 03:55 FiO2 Intake & Output 09/02/22 09/03/22 09/03/22 18:59 06:59 18:59 Intake Total 1200 30 Balance 1200 30 Weight 78.9 kg 82.1 kg Intake: IV 30 Invasive Line 1 10 Invasive Line 2 20 Oral 1200 Other: Voiding Method Toilet Toilet # Voids 1 2 - Labs CBC & Chem 7: 09/03/22 07:12 09/02/22 15:13 Labs: Abnormal Lab Results - Last 24 Hours (Table) 09/02/22 09/02/22 09/03/22 Range/Units 11:20 15:13 07:12 RBC 3.41 L (3.80-5.40) m/uL Hgb 8.6 L D 7.4 L (11.4-16.0) gm/dL Hct 29.1 L 25.8 L (34.0-46.0) % MCV 75.7 L D 75.7 L (80.0-100.0) fL MCH 22.2 L 21.7 L (25.0-35.0) pg MCHC 29.3 L 28.6 L (31.0-37.0) g/dL RDW 16.7 H 17.0 H (11.5-15.5) % Lymphocytes # (Manual) 0.64 L (1.0-4.8) k/uL Glucose 196 H (74-99) mg/dL Calcium 8.1 L (8.4-10.2) mg/dL
[2022-09-03 16:06] LABS: % Iron Saturation 1.71 (12.00-45.00); Ferritin 11.9 ng/mL (10.0-291.0)
[2022-09-03] MEDS: AMIODARONE 100 MG TAB PO SCH (20:50)
[2022-09-03] MEDS: ATORVASTATIN 40 MG TAB PO SCH (20:50)
[2022-09-04] MEDS: SODIUM CHLORIDE 0.9% 1,000 ML IV SCH (06:27)
[2022-09-04] MEDS: LEVOTHYROXINE 75 MCG TAB PO SCH (06:44)
--- NOTE | 2022-09-04 07:01 | P.PN ---
Subjective Progress Note Date: 09/04/22 Principal diagnosis: Congestive heart failure This is a 71-year-old female patient of Dr. Adan with past medical history of CAD status post stenting of the RCA, COPD, persistent atrial fibrillation and tobacco use and dependence. Patient was brought in as a scheduled atrial fibrillation ablation but once patient arrived she was diagnosed with acute heart failure and anemia and procedure was canceled. Patient was transferred to the cardiac stepdown unit and patient admitted to hospitalist. Patient continues to have significant lower extremity edema and has been on Lasix 40 mg IV every 12 hours. Telemetry is sinus rhythm in the 60s, blood pressure 99/61. Pulse ox 96% on 2 L nasal cannula. Patient has not home O2 dependent. Hemoglobin is 7.4. BMP will be ordered for tomorrow. Echocardiogram 07/31/2022 revealed normal size and systolic function, mild mitral and tricuspid regurgitation. 09/04/2022 The patient was seen and evaluated this morning. She is down 11 pounds. The shortness of breath has improved. The lower extremities edema has improved as well. Clearly she is feeling overall better. She is on Lasix IV which I would suggest to continue for additional 24 hours. On examination she has diminished breathing sounds bilaterally with bilateral rhonchi and also she has mild bilateral lower extremities edema. Assessment: Acute diastolic heart failure Anemia Persistent atrial fibrillation with RVR Recurrent dizzy spells Coronary artery disease with stenting of the RCA COPD Tobacco use and dependence Plan: Continue IV Lasix for additional 24 hours Continue amiodarone 100 mg at bedtime Monitor electrolytes and renal function Further recommendations to follow based upon clinical course Objective - Vital Signs Vital signs: Vital Signs Temp 98.2 F 09/04/22 04:00 Pulse 64 09/04/22 04:00 Resp 18 09/04/22 04:00 BP 124/60 09/04/22 04:00 Pulse Ox 92 L 09/04/22 04:00 FiO2 Intake & Output 09/03/22 09/03/22 09/04/22 06:59 18:59 06:59 Intake Total 30 624 10 Output Total 2100 Balance 30 624 -2089 Weight 82.1 kg 77 kg Intake: IV 30 10 Invasive Line 1 10 Invasive Line 2 20 10 Oral 624 Output: Urine 2100 Other: Voiding Method Toilet Toilet Toilet # Voids 2 1 - Labs CBC & Chem 7: 09/03/22 07:12 09/02/22 15:13 Labs: Abnormal Lab Results - Last 24 Hours (Table) 09/03/22 09/03/22 Range/Units 07:12 09:24 RBC 3.41 L (3.80-5.40) m/uL Hgb 7.4 L (11.4-16.0) gm/dL Hct 25.8 L (34.0-46.0) % MCV 75.7 L (80.0-100.0) fL MCH 21.7 L (25.0-35.0) pg MCHC 28.6 L (31.0-37.0) g/dL RDW 17.0 H (11.5-15.5) % Iron 12 L (50-170) ug/dL TIBC 713 H (228-460) ug/dL % Saturation 1.71 L (12.00-45.00) Transferrin 509.0 H (204.0-354.0) mg/dL
[2022-09-04 07:15] LABS: Anisocytosis Slight; HCT 27.4 % (34.0-46.0); HGB 7.9 gm/dL (11.4-16.0); Hypochromasia Marked; MCH 21.6 pg (25.0-35.0); MCHC 28.7 g/dL (31.0-37.0); MCV 75.3 fL (80.0-100.0); Mean Platelet Volume 7.2; Microcytosis Slight; Platelet Count 231 k/uL (150-450); Poikilocytosis Moderate; RBC 3.64 m/uL (3.80-5.40); RDW 16.7 % (11.5-15.5); WBC 6.4 k/uL (3.8-10.6)
[2022-09-04 07:35] LABS: African American GFR (CKD) >90 (>60 ml/min/1.73 sqM); Anion Gap 5 mmol/L; Blood Urea Nitrogen 16 mg/dL (7-17); Calcium 7.6 mg/dL (8.4-10.2); Carbon Dioxide 34 mmol/L (22-30); Chloride 101 mmol/L (98-107); Glucose 103 mg/dL (74-99); Non-African American GFR(CKD) 82 (>60 ml/min/1.73 sqM); Potassium 3.8 mmol/L (3.5-5.1); Sodium 140 mmol/L (137-145)
[2022-09-04] MEDS: FUROSEMIDE 10 MG/ML 4 ML VIAL IV SCH ×2 (09:00→21:04)
[2022-09-04] MEDS: FAMOTIDINE 20 MG TAB PO SCH ×2 (09:00→21:04)
[2022-09-04] MEDS: PANTOPRAZOLE 40 MG/10 ML VIAL IVP SCH ×2 (09:00→21:04)
[2022-09-04] MEDS: METOPROLOL SUCCINATE (ER) 25 MG TAB.ER.24H PO SCH ×2 (09:00→21:04)
[2022-09-04] MEDS: POTASSIUM CHLORIDE ER 20 MEQ TAB.ER PO SCH (09:01)
[2022-09-04] MEDS: NICOTINE 21MG/24HR PATCH TRANSDERM SCH (09:01)
--- NOTE | 2022-09-04 14:52 | P.PN ---
Subjective Progress Note Date: 09/04/22 CHIEF COMPLAINT: Anemia HISTORY OF PRESENT ILLNESS: The patient is a 71-year-old female with congestive heart failure, on chronic anticoagulants presented with anemia hemoglobin 8.6 down to 7.4. She is resting comfortably. No signs of bleeding. ROS: No reports of nausea and vomiting. No bowel movements. No fevers or chills. No new chest pain. No productive sputum. Anemia, hemoglobin down 8.6- 7.4. She is on chronic anticoagulants PHYSICAL EXAM: VITAL SIGNS: Reviewed CONSTITUTIONAL: Well developed and in no acute distress. EYES: Conjuctivae without sclera icterus. Extraocular movements grossly intact. HEAD, EARS, NOSE, THROAT: Moist buccal mucosa. Head is atraumatic, normocephalic . Hears conversational speech. No nasal drainage. RESPIRATORY: Non-labored respirations and equal bilateral excursions. CARDIOVASCULAR: Palpable 2+ radial pulses. ABDOMEN: No peritonitis. MUSCULOSKELETAL: No gross deformity of the lower extremities noted. No clubbing. No cyanosis. SKIN: Good skin turgor. Well perfused. NEUROLOGIC: Cranial nerves II through XII grossly intact. No known focal or lateralizing signs. PSYCH: Appropriate affect. CLINICAL LABS: Reviewed. Hemoglobin trending up, 7.4-7.9, anemia ASSESSMENT: 1. Anemia, chronic 2. Chronic anticoagulant use 3. Congestive heart failure PLAN: 1. Upper and lower endoscopy during current admission Objective - Vital Signs Vital signs: Vital Signs Temp 97.8 F 09/04/22 11:50 Pulse 55 L 09/04/22 11:50 Resp 20 09/04/22 11:50 BP 102/60 09/04/22 11:50 Pulse Ox 92 L 09/04/22 11:50 FiO2 Intake & Output 09/03/22 09/04/22 09/04/22 18:59 06:59 18:59 Intake Total 624 10 240 Output Total 2100 Balance 624 -2090 240 Weight 77 kg Intake: IV 10 Invasive Line 2 10 Oral 624 240 Output: Urine 2100 Other: Voiding Method Toilet Toilet Toilet # Voids 1 - Labs CBC & Chem 7: 09/04/22 06:26 09/04/22 06:26 Labs: Abnormal Lab Results - Last 24 Hours (Table) 09/03/22 09/04/22 09/04/22 Range/Units 09:24 06:26 06:26 RBC 3.64 L (3.80-5.40) m/uL Hgb 7.9 L (11.4-16.0) gm/dL Hct 27.4 L (34.0-46.0) % MCV 75.3 L (80.0-100.0) fL MCH 21.6 L (25.0-35.0) pg MCHC 28.7 L (31.0-37.0) g/dL RDW 16.7 H (11.5-15.5) % Carbon Dioxide 34 H (22-30) mmol/L Glucose 103 H (74-99) mg/dL Calcium 7.6 L (8.4-10.2) mg/dL Iron 12 L (50-170) ug/dL TIBC 713 H (228-460) ug/dL % Saturation 1.71 L (12.00-45.00) Transferrin 509.0 H (204.0-354.0) mg/dL
[2022-09-04] MEDS: SODIUM FERRIC GLUCONAT-SUCROSE 125 MG in SODIUM CHLORIDE 0.9% 100 ML IVPB SCH (15:47)
--- NOTE | 2022-09-04 18:43 | P.PN ---
Subjective Progress Note Date: 09/04/22 This is a 71-year-old female who presented today outpatient scheduled with cardiology Dr. Arambula for possible ablation and some initial labs ordered and showing a drop in hemoglobin and is 8.6 today with concerns for anemia also having 2-3+ pitting edema of lower extremities with concerns for acute CHF exacerbation recommend being admitted and monitored with follow-up on anemia. Patient denies history of anemia and after looking at previous admissions and lab values hemoglobin has been up and down although was above-10-12 most recently in July. August 18 labs were drawn with a hemoglobin of 7.7. Patient has been recently started on Xarelto over the last 2 months for atrial fibrillation. Patient denies any active bleeding denies any blood in the stool. Patient follows with Dr. Vazquez in the outpatient setting with a medical history of COPD, paroxysmal atrial fibrillation, previous [place], hypertension, hyperlipidemia, coronary artery disease with stenting, rheumatoid arthritis, s vt, thyroid disorder. Patient admits to continuing tobacco use although denies alcohol or any other illicit drug use. Chest x-ray shows no overt failure and patient will be admitted for CHF exacerbation and also concerns for anemia. General surgery consulted and may need hematology on consult for further anemia workup. Cardiology will follow. 09/03/2022 Patient is seen and evaluated in follow-up this morning with cardiology and general surgery following. Patient has been transitioned IV Lasix per cardiology and recommended to continue holding Xarelto. Hemoglobin dropped to 7.4 today and occult blood is ordered along with iron studies and pending at this time. General surgery evaluated the patient and will be undergoing EGD/colonoscopy this Tuesday with Dr. Lewis to monitor for any bleeding. Patient denies any blood in the stool or bleeding noted. Patient reports she has never received any transfusions. Patient reports she does have a history of low iron and is supposed to be taking iron supplements. Patient with some lower extremity edema recommend continue with Jose wraps and elevating while at rest. Encourage increase activity as tolerated. Patient denies chest pain or palpitations at this time and denies any nausea or vomiting. Patient is asking when she can go home. 09/04/2022 Patient is currently resting in bed. Awake and alert. No complaints of chest pain. Breathing status is improving. Cardiology plans to continue IV Lasix for another 24 hours. Bilateral lower extremity swelling is improving. No nausea, or abdominal pain or diarrhea. No cough or sputum production. Laboratory data showed WBC 6.4 hemoglobin 7.9 and platelets 231 sodium 140 pota ssium 3.8 chloride 101 bicarb is 24 BUN 16 and creatinine 0.74 and calcium 7.6. FOBT negative. Iron profile showed low iron level and high TIBC and iron saturation 1.1 and ferritin 11.9. General surgery is planning for endoscopy on Tuesday. Currently on PPI and Lasix 40 mg twice daily. Review of systems: Constitutional: No reports of fatigue, fever, or chills Cardiovascular: No reports of chest pain or palpitations Respiratory: No reports of worsening shortness of breath or cough GI: No reports of nausea, vomiting, or diarrhea : No reports of dysuria or retention Neurovascular: No reports of weakness or numbness All medications have been reviewed Active Medications Amiodarone HCl (Amiodarone 100 Mg Tab) 100 mg PO [facility] Last Admin: 09/03/22 20:50 Dose: 100 mg Atorvastatin Calcium (Atorvastatin 40 Mg Tab) 40 mg PO [facility] Last Admin: 09/03/22 20:50 Dose: 40 mg Famotidine (Famotidine 20 Mg Tab) 20 mg PO BID [facility] Last Admin: 09/04/22 09:00 Dose: 20 mg Furosemide (Furosemide 10 Mg/Ml 4 Ml Vial) 40 mg IV Q12HR [facility] Last Admin: 09/04/22 09:00 Dose: 40 mg Sodium Chloride (Saline 0.9%) 1,000 mls @ 20 mls/hr IV .Q24H [facility] Stop: 10/02/22 05:55 Last Admin: 09/04/22 06:27 Dose: Not Given Ferric Sodium Gluconate 125 mg (/ Sodium Chloride) 110 mls @ 100 mls/hr IVPB DAILY [facility] Last Admin: 09/04/22 15:47 Dose: 100 mls/hr Levothyroxine Sodium (Levothyroxine 75 Mcg Tab) 75 mcg PO 0630 [facility] Last Admin: 09/04/22 06:44 Dose: 75 mcg Metoprolol Succinate (Metoprolol Succinate (Er) 25 Mg Tab.Er.24h) 12.5 mg PO BID [facility] Last Admin: 09/04/22 09:00 Dose: 12.5 mg Nicotine (Nicotine 21mg/24hr Patch) 1 patch TRANSDERM DAILY [facility] Last Admin: 09/04/22 09:01 Dose: 1 patch Pantoprazole Sodium (Pantoprazole 40 Mg/10 Ml Vial) 40 mg IVP BID [facility] Last Admin: 09/04/22 09:00 Dose: 40 mg Polyethylene Glycol/Electrolytes (Peg 3350 (236 Gm/Btl) + Lytes 4,000 Ml Bottle) 4,000 ml PO ONCE ONE Stop: 09/05/22 09:01 Potassium Chloride (Potassium Chloride Er 20 Meq Tab.Er) 20 meq PO DAILY [facility] Last Admin: 09/04/22 09:01 Dose: 20 meq PHYSICAL EXAMINATION: GENERAL: The patient is alert and oriented x4, Well developed, well nourished. HEENT: Pupils are round and equally reacting to light. EOMI. no scleral icterus. No conjunctival pallor. Normocephalic, atraumatic. No pharyngeal erythema. No thyromegaly. CARDIOVASCULAR: S1 and S2 muffled PULMONARY: diminished breath sounds bilaterally with no wheezing or rhonchi note d. ABDOMEN: soft. Non-tender on exam. non-distended, normoactive bowel sounds. No palpable organomegaly. MUSCULOSKELETAL: No joint swelling or deformity. EXTREMITIES: No cyanosis, clubbing, pedal edema 1-2 + pitting more so on the right and also some generalized edema noted of bilateral lower extremities 1+ pitting NEUROLOGICAL: Gross neurological examination did not reveal any focal deficits. SKIN: No rashes. Pale Assessment: Mild shortness of breath with bilateral lower extremity pitting edema due to acute on chronic diastolic CHF exacerbation Acute hypoxic respiratory failure secondary to CHF exacerbation Anemia, of unknown etiology possibly a component of Xarelto use or chronic in nature, microcytic Microcytic iron deficiency anemia COPD, not in exacerbation Paroxysmal Atrial fibrillation Coronary artery disease with previous stenting Hypertension History of rheumatoid arthritis Hypothyroidism HyperLipidemia Continued ongoing nicotine abuse GI prophylaxis DVT prophylaxis Full code Plan: Recommend to continue with current medications and management cardiology following. Patient was an outpatient procedure for ablation with Dr Arambula and initial labs displayed a hemoglobin of 8.6 and was documented above 10 in July. Patient denies any blood loss or bleeding noted. Patient reports to feeling generally unwell with some episodes of dizziness and epigastric dis comfort yesterday. General surgery evaluated the patient recommending to continue holding Xarelto for now and cardiology following as well and placed patient on IV Lasix for diuresis recommend follow-up labs in the a.m. Plan is for EGD/colonoscopy on Tuesday with Dr. Lewis and will await report. Continue with PPI. Recommend Jose wrapping lower extremities from the toes up to the knees and elev ating while at rest. Instructed patient to monitor fluid restrictions closely given her failure history. Due to multiple complex medical issues, prognosis is guarded Objective - Vital Signs Vital signs: Vital Signs Temp 97.8 F 09/04/22 11:50 Pulse 55 L 09/04/22 11:50 Resp 20 09/04/22 11:50 BP 102/60 09/04/22 11:50 Pulse Ox 92 L 09/04/22 11:50 FiO2 Intake & Output 09/03/22 09/04/22 09/04/22 18:59 06:59 18:59 Intake Total 624 10 240 Output Total 2100 Balance 624 -2090 240 Weight 77 kg Intake: IV 10 Invasive Line 2 10 Oral 624 240 Output: Urine 2100 Other: Voiding Method Toilet Toilet Toilet # Voids 1 - Labs CBC & Chem 7: 09/04/22 06:26 09/04/22 06:26 Labs: Abnormal Lab Results - Last 24 Hours (Table) 09/03/22 09/04/22 09/04/22 Range/Units 09:24 06:26 06:26 RBC 3.64 L (3.80-5.40) m/uL Hgb 7.9 L (11.4-16.0) gm/dL Hct 27.4 L (34.0-46.0) % MCV 75.3 L (80.0-100.0) fL MCH 21.6 L (25.0-35.0) pg MCHC 28.7 L (31.0-37.0) g/dL RDW 16.7 H (11.5-15.5) % Carbon Dioxide 34 H (22-30) mmol/L Glucose 103 H (74-99) mg/dL Calcium 7.6 L (8.4-10.2) mg/dL Iron 12 L (50-170) ug/dL TIBC 713 H (228-460) ug/dL % Saturation 1.71 L (12.00-45.00) Transferrin 509.0 H (204.0-354.0) mg/dL Assessment and Plan Time with Patient: Greater than 30
[2022-09-04] MEDS: ATORVASTATIN 40 MG TAB PO SCH (21:04)
[2022-09-04] MEDS: AMIODARONE 100 MG TAB PO SCH (21:04)
[2022-09-05] MEDS: SODIUM CHLORIDE 0.9% 250 ML IV SCH ×2 (00:18→01:04)
[2022-09-05 06:05] LABS: Anisocytosis Slight; Basophils # (A) 0.1 k/uL (0-0.2); Basophils % (A) 1 %; Eosinophils # (A) 0.1 k/uL (0-0.7); Eosinophils % (A) 2 %; HCT 27.9 % (34.0-46.0); HGB 8.2 gm/dL (11.4-16.0); Hypochromasia Marked; Lymphocytes % (A) 17 %; MCH 22.1 pg (25.0-35.0); MCHC 29.5 g/dL (31.0-37.0); MCV 74.8 fL (80.0-100.0); Mean Platelet Volume 8.4; Microcytosis Slight; Monocytes # (A) 0.5 k/uL (0-1.0); Monocytes % (A) 8 %; Neutrophils # (A) 4.1 k/uL (1.3-7.7); Neutrophils % (A) 69 %; Platelet Count 262 k/uL (150-450); Poikilocytosis Moderate; RBC 3.73 m/uL (3.80-5.40); RDW 16.9 % (11.5-15.5); WBC 5.9 k/uL (3.8-10.6)
[2022-09-05 06:18] LABS: Calcium 7.9 mg/dL (8.4-10.2); Potassium 3.4 mmol/L (3.5-5.1)
[2022-09-05] MEDS: SODIUM CHLORIDE 0.9% 1,000 ML IV SCH (06:42)
[2022-09-05] MEDS ORDERED: SODIUM CHLORIDE 0.9% 500 ML 500 ML IV ONE (07:00)
--- NOTE | 2022-09-05 07:02 | P.PN ---
Subjective Progress Note Date: 09/05/22 Principal diagnosis: Congestive heart failure This is a 71-year-old female patient of Dr. Adan with past medical history of CAD status post stenting of the RCA, COPD, persistent atrial fibrillation and tobacco use and dependence. Patient was brought in as a scheduled atrial fibrillation ablation but once patient arrived she was diagnosed with acute heart failure and anemia and procedure was canceled. Patient was transferred to the cardiac stepdown unit and patient admitted to hospitalist. Patient continues to have significant lower extremity edema and has been on Lasix 40 mg IV every 12 hours. Telemetry is sinus rhythm in the 60s, blood pressure 99/61. Pulse ox 96% on 2 L nasal cannula. Patient has not home O2 dependent. Hemoglobin is 7.4. BMP will be ordered for tomorrow. Echocardiogram 07/31/2022 revealed normal size and systolic function, mild mitral and tricuspid regurgitation. 09/04/2022 The patient was seen and evaluated this morning. She is down 11 pounds. The shortness of breath has improved. The lower extremities edema has improved as well. Clearly she is feeling overall better. She is on Lasix IV which I would suggest to continue for additional 24 hours. On examination she has diminished breathing sounds bilaterally with bilateral rhonchi and also she has mild bilateral lower extremities edema. September 052022 The patient was seen this morning. She states "I don't feel good". She is dizzy with standing up. Her pressure has been low. She lost about 5 kg in 24 hours. She is euvolemic on examination she is not on oxygen and no lower except his edema noted. I am going to stop the Lasix and give the patient a bolus of 500 mL of 0.9 normal saline. The only other medication she is on right now his beta jp for atrial fibrillation which I'm going to continue beach she is on oral anticoagulation. She is in normal sinus mechanism. We'll obtain orthostatic blood pressure as well. The physical examination is remarkable for regular rhythm with clear breathing sounds bilaterally and no lower except his edema noted Assessment: Acute diastolic heart failure. Currently the patient is euvolemic Hypotension, the patient is symptomatic with dizziness and lightheadedness Persistent atrial fibrillation. The patient currently is in sinus rhythm Coronary artery disease with stenting of the RCA COPD Tobacco use and dependence Plan: DC Lasix IV. Continue the current dose of beta jp Bolus of 500 mL of 0.9 normal saline Obtain orthostatic blood pressure before the bolus Follow-up with the patient Objective - Vital Signs Vital signs: Vital Signs Temp 97.6 F 09/05/22 04:00 Pulse 61 09/05/22 04:00 Resp 15 09/05/22 04:00 BP 94/52 09/05/22 06:17 Pulse Ox 93 L 09/05/22 04:00 FiO2 Intake & Output 09/04/22 09/04/22 09/05/22 06:59 18:59 06:59 Intake Total 10 480 860 Output Total 2100 900 1100 Balance -2090 -420 -240 Weight 77 kg 72.3 kg Intake: IV 10 Invasive Line 2 10 Intake, IV Titration 320 Amount Sodium Chloride 0.9% 1, 120 000 ml @ 20 mls/hr IV . Q24H [facility] Rx#:[id number] Sodium Chloride 0.9% 250 200 ml @ 999 mls/hr IV .Q16M [facility] Rx#:[id number] Oral 480 540 Output: Urine 2100 900 1100 Other: Voiding Method Toilet Toilet Toilet # Voids 1 - Labs CBC & Chem 7: 09/05/22 05:48 09/05/22 05:48 Labs: Abnormal Lab Results - Last 24 Hours (Table) 09/04/22 09/04/22 09/05/22 Range/Units 06:26 06:26 05:48 RBC 3.64 L 3.73 L (3.80-5.40) m/uL Hgb 7.9 L 8.2 L (11.4-16.0) gm/dL Hct 27.4 L 27.9 L (34.0-46.0) % MCV 75.3 L 74.8 L (80.0-100.0) fL MCH 21.6 L 22.1 L (25.0-35.0) pg MCHC 28.7 L 29.5 L (31.0-37.0) g/dL RDW 16.7 H 16.9 H (11.5-15.5) % Potassium (3.5-5.1) mmol/L Carbon Dioxide 34 H (22-30) mmol/L Glucose 103 H (74-99) mg/dL Calcium 7.6 L (8.4-10.2) mg/dL 09/05/22 Range/Units 05:48 RBC (3.80-5.40) m/uL Hgb (11.4-16.0) gm/dL Hct (34.0-46.0) % MCV (80.0-100.0) fL MCH (25.0-35.0) pg MCHC (31.0-37.0) g/dL RDW (11.5-15.5) % Potassium 3.4 L (3.5-5.1) mmol/L Carbon Dioxide 33 H (22-30) mmol/L Glucose 115 H (74-99) mg/dL Calcium 7.9 L (8.4-10.2) mg/dL
[2022-09-05] MEDS: LEVOTHYROXINE 75 MCG TAB PO SCH (07:07)
[2022-09-05] MEDS ORDERED: LIDOCAINE 1% (10MG/ML) FOR IV START INTRADERMA PRN (08:18)
[2022-09-05] MEDS ORDERED: PEG 3350 (236 GM/BTL) + LYTES 4,000 ML BOTTLE PO ONE (09:00)
[2022-09-05] MEDS: NICOTINE 21MG/24HR PATCH TRANSDERM SCH (09:02)
[2022-09-05] MEDS: PANTOPRAZOLE 40 MG/10 ML VIAL IVP SCH ×2 (09:02→21:04)
[2022-09-05] MEDS: METOPROLOL SUCCINATE (ER) 25 MG TAB.ER.24H PO SCH ×2 (09:03→21:05)
[2022-09-05] MEDS: POTASSIUM CHLORIDE ER 20 MEQ TAB.ER PO SCH (09:03)
[2022-09-05] MEDS: FAMOTIDINE 20 MG TAB PO SCH ×2 (09:03→21:05)
[2022-09-05] MEDS: SODIUM FERRIC GLUCONAT-SUCROSE 125 MG in SODIUM CHLORIDE 0.9% 100 ML IVPB SCH (09:04)
[2022-09-05] MEDS: LACTATED RINGERS 1,000 ML IV SCH (13:34)
--- NOTE | 2022-09-05 14:52 | P.PN ---
Subjective Progress Note Date: 09/05/22 CHIEF COMPLAINT: Anemia HISTORY OF PRESENT ILLNESS: The patient is a 71-year-old female with congestive heart failure, on chronic anticoagulants presented with anemia hemoglobin 8.6 down to 7.4. She is tolerating bowel prep. She reports clear bowel movements. ROS: No reports of nausea and vomiting. No fevers or chills. No new chest pain. No productive sputum. Anemia, hemoglobin down 8.6-7.4. She is on chronic anticoagulants PHYSICAL EXAM: VITAL SIGNS: Reviewed CONSTITUTIONAL: Well developed and in no acute distress. EYES: Conjuctivae without sclera icterus. Extraocular movements grossly intact. HEAD, EARS, NOSE, THROAT: Moist buccal mucosa. Head is atraumatic, normocephalic. Hears conversational speech. No nasal drainage. RESPIRATORY: Non-labored respirations and equal bilateral excursions. CARDIOVASCULAR: Palpable 2+ radial pulses. ABDOMEN: No peritonitis. MUSCULOSKELETAL: No gross deformity of the lower extremities noted. No clubbing. No cyanosis. SKIN: Good skin turgor. Well perfused. NEUROLOGIC: Cranial nerves II through XII grossly intact. No known focal or lateralizing signs. PSYCH: Appropriate affect. CLINICAL LABS: Reviewed. Hemoglobin trending up, 7.4-7.9, anemia, now 8.2. Iron low at 12. ASSESSMENT: 1. Anemia, chronic 2. Chronic anticoagulant use 3. Congestive heart failure 4. Iron deficiency anemia PLAN: 1. Continue bowel prep including clear liquid diet until bowel movements are clear 2. She is elevated risk for upper and lower endoscopies due to pre-existing comorbidities 3. Upper and lower endoscopy scheduled for tomorrow 4. Recommend iron infusions Objective - Vital Signs Vital signs: Vital Signs Temp 97.8 F 09/05/22 11:24 Pulse 54 L 09/05/22 13:31 Resp 17 09/05/22 13:31 BP 114/73 09/05/22 11:24 Pulse Ox 97 09/05/22 11:24 FiO2 Intake & Output 09/04/22 09/05/22 09/05/22 18:59 06:59 18:59 Intake Total 480 860 960 Output Total 900 1100 Balance -420 -240 960 Weight 72.3 kg Intake: Intake, IV Titration 320 Amount Sodium Chloride 0.9% 1, 120 000 ml @ 20 mls/hr IV . Q24H [facility] Rx#:[id number] Sodium Chloride 0.9% 250 200 ml @ 999 mls/hr IV .Q16M [facility] Rx#:[id number] Oral 480 540 960 Output: Urine 900 1100 Other: Voiding Method Toilet Toilet Toilet # Voids 1 3 # Bowel Movements 2 - Labs CBC & Chem 7: 09/05/22 05:48 09/05/22 05:48 Labs: Abnormal Lab Results - Last 24 Hours (Table) 09/05/22 09/05/22 Range/Units 05:48 05:48 RBC 3.73 L (3.80-5.40) m/uL Hgb 8.2 L (11.4-16.0) gm/dL Hct 27.9 L (34.0-46.0) % MCV 74.8 L (80.0-100.0) fL MCH 22.1 L (25.0-35.0) pg MCHC 29.5 L (31.0-37.0) g/dL RDW 16.9 H (11.5-15.5) % Potassium 3.4 L (3.5-5.1) mmol/L Carbon Dioxide 33 H (22-30) mmol/L Glucose 115 H (74-99) mg/dL Calcium 7.9 L (8.4-10.2) mg/dL Assessment and Plan (1) Iron deficiency anemia Current Visit: Yes Status: Acute Code(s): D50.9 - IRON DEFICIENCY ANEMIA, UNSPECIFIED SNOMED Code(s): 65704216 (2) Congestive heart failure Current Visit: No Status: Acute Code(s): I50.9 - HEART FAILURE, UNSPECIFIED SNOMED Code(s): 01148818 (3) Chronic anticoagulation Current Visit: Yes Status: Acute Code(s): Z79.01 - HALFWAY (CURRENT) USE OF ANTICOAGULANTS SNOMED Code(s): 955454923 (4) Anemia Current Visit: Yes Status: Acute Code(s): D64.9 - ANEMIA, UNSPECIFIED S NOMED Code(s): 450806710
[2022-09-05] MEDS: ATORVASTATIN 40 MG TAB PO SCH (21:05)
[2022-09-05] MEDS: AMIODARONE 100 MG TAB PO SCH (21:05)
[2022-09-05] MEDS ORDERED: POTASSIUM CHLORIDE ER 20 MEQ TAB.ER PO STA (22:02)
--- NOTE | 2022-09-05 22:02 | P.PN ---
Subjective Progress Note Date: 09/05/22 This is a 71-year-old female who presented today outpatient scheduled with cardiology Dr. Arambula for possible ablation and some initial labs ordered and showing a drop in hemoglobin and is 8.6 today with concerns for anemia also having 2-3+ pitting edema of lower extremities with concerns for acute CHF exacerbation recommend being admitted and monitored with follow-up on anemia. Patient denies history of anemia and after looking at previous admissions and lab values hemoglobin has been up and down although was above-10-12 most recently in July. August 18 labs were drawn with a hemoglobin of 7.7. Patient has been recently started on Xarelto over the last 2 months for atrial fibrillation. Patient denies any active bleeding denies any blood in the stool. Patient follows with Dr. Vazquez in the outpatient setting with a medical history of COPD, paroxysmal atrial fibrillation, previous OR, hypertension, hyperlipidemia, coronary artery disease with stenting, rheumatoid arthritis, s vt, thyroid disorder. Patient admits to continuing tobacco use although denies alcohol or any other illicit drug use. Chest x-ray shows no overt failure and patient will be admitted for CHF exacerbation and also concerns for anemia. General surgery consulted and may need hematology on consult for further anemia workup. Cardiology will follow. 09/03/2022 Patient is seen and evaluated in follow-up this morning with cardiology and general surgery following. Patient has been transitioned IV Lasix per cardiology and recommended to continue holding Xarelto. Hemoglobin dropped to 7.4 today and occult blood is ordered along with iron studies and pending at this time. General surgery evaluated the patient and will be undergoing EGD/colonoscopy this Tuesday with Dr. Lewis to monitor for any bleeding. Patient denies any blood in the stool or bleeding noted. Patient reports she has never received any transfusions. Patient reports she does have a history of low iron and is supposed to be taking iron supplements. Patient with some lower extremity edema recommend continue with Jose wraps and elevating while at rest. Encourage increase activity as tolerated. Patient denies chest pain or palpitations at this time and denies any nausea or vomiting. Patient is asking when she can go home. 09/04/2022 Patient is currently resting in bed. Awake and alert. No complaints of chest pain. Breathing status is improving. Cardiology plans to continue IV Lasix for another 24 hours. Bilateral lower extremity swelling is improving. No nausea, or abdominal pain or diarrhea. No cough or sputum production. Laboratory data showed WBC 6.4 hemoglobin 7.9 and platelets 231 sodium 140 pota ssium 3.8 chloride 101 bicarb is 24 BUN 16 and creatinine 0.74 and calcium 7.6. FOBT negative. Iron profile showed low iron level and high TIBC and iron saturation 1.1 and ferritin 11.9. General surgery is planning for endoscopy on Tuesday. Currently on PPI and Lasix 40 mg twice daily. Review of systems: Constitutional: No reports of fatigue, fever, or chills Cardiovascular: No reports of chest pain or palpitations Respiratory: No reports of worsening shortness of breath or cough GI: No reports of nausea, vomiting, or diarrhea : No reports of dysuria or retention Neurovascular: No reports of weakness or numbness All medications have been reviewed Active Medications Amiodarone HCl (Amiodarone 100 Mg Tab) 100 mg PO [facility] Last Admin: 09/03/22 20:50 Dose: 100 mg Atorvastatin Calcium (Atorvastatin 40 Mg Tab) 40 mg PO [facility] Last Admin: 09/03/22 20:50 Dose: 40 mg Famotidine (Famotidine 20 Mg Tab) 20 mg PO BID [facility] Last Admin: 09/04/22 09:00 Dose: 20 mg Furosemide (Furosemide 10 Mg/Ml 4 Ml Vial) 40 mg IV Q12HR [facility] Last Admin: 09/04/22 09:00 Dose: 40 mg Sodium Chloride (Saline 0.9%) 1,000 mls @ 20 mls/hr IV .Q24H [facility] Stop: 10/02/22 05:55 Last Admin: 09/04/22 06:27 Dose: Not Given Ferric Sodium Gluconate 125 mg (/ Sodium Chloride) 110 mls @ 100 mls/hr IVPB DAILY [facility] Last Admin: 09/04/22 15:47 Dose: 100 mls/hr Levothyroxine Sodium (Levothyroxine 75 Mcg Tab) 75 mcg PO 0630 [facility] Last Admin: 09/04/22 06:44 Dose: 75 mcg Metoprolol Succinate (Metoprolol Succinate (Er) 25 Mg Tab.Er.24h) 12.5 mg PO BID [facility] Last Admin: 09/04/22 09:00 Dose: 12.5 mg Nicotine (Nicotine 21mg/24hr Patch) 1 patch TRANSDERM DAILY [facility] Last Admin: 09/04/22 09:01 Dose: 1 patch Pantoprazole Sodium (Pantoprazole 40 Mg/10 Ml Vial) 40 mg IVP BID [facility] Last Admin: 09/04/22 09:00 Dose: 40 mg Polyethylene Glycol/Electrolytes (Peg 3350 (236 Gm/Btl) + Lytes 4,000 Ml Bottle) 4,000 ml PO ONCE ONE Stop: 09/05/22 09:01 Potassium Chloride (Potassium Chloride Er 20 Meq Tab.Er) 20 meq PO DAILY [facility] Last Admin: 09/04/22 09:01 Dose: 20 meq PHYSICAL EXAMINATION: GENERAL: The patient is alert and oriented x4, Well developed, well nourished. HEENT: Pupils are round and equally reacting to light. EOMI. no scleral icterus. No conjunctival pallor. Normocephalic, atraumatic. No pharyngeal erythema. No thyromegaly. CARDIOVASCULAR: S1 and S2 muffled PULMONARY: diminished breath sounds bilaterally with no wheezing or rhonchi note d. ABDOMEN: soft. Non-tender on exam. non-distended, normoactive bowel sounds. No palpable organomegaly. MUSCULOSKELETAL: No joint swelling or deformity. EXTREMITIES: No cyanosis, clubbing, pedal edema 1-2 + pitting more so on the right and also some generalized edema noted of bilateral lower extremities 1+ pitting NEUROLOGICAL: Gross neurological examination did not reveal any focal deficits. SKIN: No rashes. Pale Assessment: Mild shortness of breath with bilateral lower extremity pitting edema due to acute on chronic diastolic CHF exacerbation Acute hypoxic respiratory failure secondary to CHF exacerbation Anemia, of unknown etiology possibly a component of Xarelto use or chronic in nature, microcytic Microcytic iron deficiency anemia COPD, not in exacerbation Paroxysmal Atrial fibrillation Coronary artery disease with previous stenting Hypertension History of rheumatoid arthritis Hypothyroidism HyperLipidemia Continued ongoing nicotine abuse GI prophylaxis DVT prophylaxis Full code Plan: Recommend to continue with current medications and management cardiology following. Patient was an outpatient procedure for ablation with Dr Arambula and initial labs displayed a hemoglobin of 8.6 and was documented above 10 in July. Patient denies any blood loss or bleeding noted. Patient reports to feeling generally unwell with some episodes of dizziness and epigastric dis comfort yesterday. General surgery evaluated the patient recommending to continue holding Xarelto for now and cardiology following as well and placed patient on IV Lasix for diuresis recommend follow-up labs in the a.m. Plan is for EGD/colonoscopy on Tuesday with Dr. Lewis and will await report. Continue with PPI. Recommend Jose wrapping lower extremities from the toes up to the knees and elev ating while at rest. Instructed patient to monitor fluid restrictions closely given her failure history. Due to multiple complex medical issues, prognosis is guarded Objective - Vital Signs Vital signs: Vital Signs Temp 97.8 F 09/05/22 16:00 Pulse 60 09/05/22 16:00 Resp 17 09/05/22 16:00 BP 123/74 09/05/22 16:00 Pulse Ox 94 L 09/05/22 20:35 FiO2 21 09/05/22 20:35 Intake & Output 09/05/22 09/05/22 09/06/22 06:59 18:59 06:59 Intake Total 860 960 Output Total 1100 Balance -240 960 Weight 72.3 kg Intake: Intake, IV Titration 320 Amount Sodium Chloride 0.9% 1, 120 000 ml @ 20 mls/hr IV . Q24H [facility] Rx#:[id number] Sodium Chloride 0.9% 250 200 ml @ 999 mls/hr IV .Q16M [facility] Rx#:[id number] Oral 540 960 Output: Urine 1100 Other: Voiding Method Toilet Toilet # Voids 1 3 # Bowel Movements 2 2 - Labs CBC & Chem 7: 09/05/22 05:48 09/05/22 05:48 Labs: Abnormal Lab Results - Last 24 Hours (Table) 09/05/22 09/05/22 Range/Units 05:48 05:48 RBC 3.73 L (3.80-5.40) m/uL Hgb 8.2 L (11.4-16.0) gm/dL Hct 27.9 L (34.0-46.0) % MCV 74.8 L (80.0-100.0) fL MCH 22.1 L (25.0-35.0) pg MCHC 29.5 L (31.0-37.0) g/dL RDW 16.9 H (11.5-15.5) % Potassium 3.4 L (3.5-5.1) mmol/L Carbon Dioxide 33 H (22-30) mmol/L Glucose 115 H (74-99) mg/dL Calcium 7.9 L (8.4-10.2) mg/dL
[2022-09-06] MEDS: SODIUM CHLORIDE 0.9% 1,000 ML IV SCH (04:47)
[2022-09-06 06:49] LABS: Anisocytosis Slight; HCT 27.6 % (34.0-46.0); Hypochromasia Marked; MCH 21.5 pg (25.0-35.0); MCHC 28.9 g/dL (31.0-37.0); MCV 74.3 fL (80.0-100.0); Mean Platelet Volume 7.4; Microcytosis Moderate; Platelet Count 248 k/uL (150-450); Poikilocytosis Moderate; RBC 3.72 m/uL (3.80-5.40); RDW 17.6 % (11.5-15.5); WBC 5.1 k/uL (3.8-10.6)
[2022-09-06 07:45] LABS: Chloride 106 mmol/L (98-107); Glucose 90 mg/dL (74-99); Sodium 141 mmol/L (137-145)
[2022-09-06 07:46] LABS: African American GFR (CKD) >90 (>60 ml/min/1.73 sqM); Anion Gap 2 mmol/L; Blood Urea Nitrogen 6 mg/dL (7-17); Carbon Dioxide 33 mmol/L (22-30); Non-African American GFR(CKD) 88 (>60 ml/min/1.73 sqM)
[2022-09-06] MEDS: METOPROLOL SUCCINATE (ER) 25 MG TAB.ER.24H PO SCH ×2 (07:56→21:28)
[2022-09-06] MEDS: FAMOTIDINE 20 MG TAB PO SCH ×2 (07:56→21:28)
[2022-09-06] MEDS: POTASSIUM CHLORIDE ER 20 MEQ TAB.ER PO SCH (07:56)
[2022-09-06] MEDS: NICOTINE 21MG/24HR PATCH TRANSDERM SCH (07:57)
[2022-09-06] MEDS: LEVOTHYROXINE 75 MCG TAB PO SCH (07:57)
[2022-09-06] MEDS: PANTOPRAZOLE 40 MG/10 ML VIAL IVP SCH ×2 (07:57→21:28)
[2022-09-06] MEDS: LACTATED RINGERS 1,000 ML IV SCH (08:01)
[2022-09-06] MEDS: SODIUM FERRIC GLUCONAT-SUCROSE 125 MG in SODIUM CHLORIDE 0.9% 100 ML IVPB SCH (08:49)
--- NOTE | 2022-09-06 11:39 | P.PN ---
Subjective Progress Note Date: 09/06/22 HISTORY OF PRESENT ILLNESS: This is a 71-year-old female patient of Dr. Adan with past medical history of CAD status post stenting of the RCA, COPD, persistent atrial fibrillation and tobacco use and dependence. Patient was brought in as a scheduled atrial fibrillation ablation but once patient arrived she was diagnosed with acute heart failure and anemia and procedure was canceled. Patient was transferred to the cardiac stepdown unit and patient admitted to hospitalist. Patient continues to have significant lower extremity edema and has been on Lasix 40 mg IV every 12 hours. Telemetry is sinus rhythm in the 60s, blood pressure 99/61. Pulse ox 96% on 2 L nasal cannula. Patient has not home O2 dependent. Hemoglobin is 7.4. BMP will be ordered for tomorrow. Echocardiogram 07/31/2022 revealed normal size and systolic function, mild mitral and tricuspid regurgitation. 09/04/2022 The patient was seen and evaluated this morning. She is down 11 pounds. The shortness of breath has improved. The lower extremities edema has improved as well. Clearly she is feeling overall better. She is on Lasix IV which I would suggest to continue for additional 24 hours. On examination she has diminished breathing sounds bilaterally with bilateral rhonchi and also she has mild bilateral lower extremities edema. September 052022 The patient was seen this morning. She states "I don't feel good". She is dizzy with standing up. Her pressure has been low. She lost about 5 kg in 24 hours. She is euvolemic on examination she is not on oxygen and no lower except his edema noted. I am going to stop the Lasix and give the patient a bolus of 500 mL of 0.9 normal saline. The only other medication she is on right now his beta jp for atrial fibrillation which I'm going to continue beach she is on oral anticoagulation. She is in normal sinus mechanism. We'll obtain orthostatic blood pressure as well. The physical examination is remarkable for regular rhythm with clear breathing sounds bilaterally and no lower except his edema noted 09/06/2022 Patient examined this morning at the bedside. Patient denies chest pain or pressure. She denies shortness of breath. She reports feeling dizzy. She is scheduled for EGD and colonoscopy today secondary to anemia. Hemoglobin this morning 8.0. Vital signs are stable. Patient's anticoagulation remains on hold. PHYSICAL EXAM: VITAL SIGNS: Reviewed. GENERAL: Well-developed in no acute distress. NECK: Supple. No JVD or thyromegaly LUNGS: Respirations even and unlabored. Lungs essentially clear to auscultation bilaterally. HEART: Regular rate and rhythm. S1 and S2 heard. EXTREMITIES: Normal range of motion. No clubbing or cyanosis. Peripheral pulses intact. No lower extremity edema ASSESSMENT: Anemia, rule out GI bleeding, patient scheduled for EGD and colonoscopy today Hypotension with dizziness, improving Paroxysmal atrial fibrillation, currently maintaining sinus mechanism Acute heart failure with preserved ejection fraction, currently euvolemic Coronary artery disease with previous stenting of the RCA COPD Nicotine dependence PLAN: Continue current cardiac medications Patient's anticoagulation remains on hold Patient scheduled for EGD and colonoscopy today Further recommendation pending patient course Patients afib ablation will be rescheduled in the future. She is to follow up outpatient with Dr. Adan Nurse practitioner note has been reviewed by physician. Signing provider agrees with the documented findings, assessment, and plan of care. Objective - Vital Signs Vital signs: Vital Signs Temp 99.3 F 09/06/22 08:00 Pulse 62 09/06/22 08:00 Resp 16 09/06/22 08:00 BP 125/63 09/06/22 08:00 Pulse Ox 94 L 09/06/22 08:00 FiO2 21 09/05/22 20:35 Intake & Output 09/05/22 09/06/22 09/06/22 18:59 06:59 18:59 Intake Total 960 540 Output Total 200 Balance 960 340 Weight 75.3 kg Intake: Oral 960 540 Output: Urine 200 Other: Voiding Method Toilet Toilet Toilet # Voids 3 2 # Bowel Movements 2 2 - Labs CBC & Chem 7: 09/06/22 06:36 09/06/22 06:36 Labs: Abnormal Lab Results - Last 24 Hours (Table) 09/06/22 09/06/22 Range/Units 06:36 06:36 RBC 3.72 L (3.80-5.40) m/uL Hgb 8.0 L (11.4-16.0) gm/dL Hct 27.6 L (34.0-46.0) % MCV 74.3 L (80.0-100.0) fL MCH 21.5 L (25.0-35.0) pg MCHC 28.9 L (31.0-37.0) g/dL RDW 17.6 H (11.5-15.5) % Carbon Dioxide 33 H (22-30) mmol/L BUN 6 L (7-17) mg/dL Calcium 8.0 L (8.4-10.2) mg/dL
--- NOTE | 2022-09-06 15:13 | P.PN ---
Subjective Progress Note Date: 09/06/22 This is a 71-year-old female who presented today outpatient scheduled with cardiology Dr. Arambula for possible ablation and some initial labs ordered and showing a drop in hemoglobin and is 8.6 today with concerns for anemia also having 2-3+ pitting edema of lower extremities with concerns for acute CHF exacerbation recommend being admitted and monitored with follow-up on anemia. Patient denies history of anemia and after looking at previous admissions and lab values hemoglobin has been up and down although was above-10-12 most recently in July. August 18 labs were drawn with a hemoglobin of 7.7. Patient has been recently started on Xarelto over the last 2 months for atrial fibrillation. Patient denies any active bleeding denies any blood in the stool. Patient follows with Dr. Vazquez in the outpatient setting with a medical history of COPD, paroxysmal atrial fibrillation, previous [place], hypertension, hyperlipidemia, coronary artery disease with stenting, rheumatoid arthritis, svt, thyroid disorder. Patient admits to continuing tobacco use although denies alcohol or any other illicit drug use. Chest x-ray shows no overt failure and patient will be admitted for CHF exacerbation and also concerns for anemia. General surgery consulted and may need hematology on consult for further anemia workup. Cardiology will follow. 09/03/2022 Patient is seen and evaluated in follow-up this morning with cardiology and general surgery following. Patient has been transitioned IV Lasix per cardiology and recommended to continue holding Xarelto. Hemoglobin dropped to 7.4 today and occult blood is ordered along with iron studies and pending at this time. General surgery evaluated the patient and will be undergoing EGD/colonoscopy this Tuesday with Dr. Lewis to monitor for any bleeding. Patient denies any blood in the stool or bleeding noted. Patient reports she has never received any transfusions. Patient reports she does have a history of low iron and is supposed to be taking iron supplements. Patient with some lower extremity edema recommend continue with Jose wraps and elevating while at rest. Encourage increase activity as tolerated. Patient denies chest pain or palpitations at this time and denies any nausea or vomiting. Patient is asking when she can go home. 09/04/2022 Patient is currently resting in bed. Awake and alert. No complaints of chest pain. Breathing status is improving. Cardiology plans to continue IV Lasix for another 24 hours. Bilateral lower extremity swelling is improving. No nausea, or abdominal pain or diarrhea. No cough or sputum production. Laboratory data showed WBC 6.4 hemoglobin 7.9 and platelets 231 sodium 140 po tassium 3.8 chloride 101 bicarb is 24 BUN 16 and creatinine 0.74 and calcium 7.6. FOBT negative. Iron profile showed low iron level and high TIBC and iron saturation 1.1 and ferritin 11.9. General surgery is planning for endoscopy on Tuesday. Currently on PPI and Lasix 40 mg twice daily. 09/06/2022 Patient is seen and evaluated in follow-up has recently finished a bowel prep and is scheduled to undergo EGD with colonoscopy or Gen. surgery. Hemoglobin is 8 but no active bleeding noted. Patient denies any blood in the stool or clots while performing the prep. Anticoagulation in the form of Xarelto continues to be on hold with cardiology following. Patient is receiving IV iron at this time. Again patient is nothing by mouth and will resume diet once cleared by surgery and await surgical report. Patient is afebrile denies chest pain or worsening shortness of breath. No reports of nausea or vomiting currently. Patient did have some mild dizziness and Lasix has been transitioned oral. Review of systems: Constitutional: No reports of fatigue, fever, or chills Cardiovascular: No reports of chest pain or palpitations Respiratory: No reports of worsening shortness of breath or cough GI: No reports of nausea, vomiting, or diarrhea, reports clear bowel movements status post prep : No reports of dysuria or retention Neurovascular: No reports of weakness or numbness All medications have been reviewed Active Medications Amiodarone HCl (Amiodarone 100 Mg Tab) 100 mg PO [facility] Last Admin: 09/05/22 21:05 Dose: 100 mg Atorvastatin Calcium (Atorvastatin 40 Mg Tab) 40 mg PO [facility] Last Admin: 09/05/22 21:05 Dose: 40 mg Famotidine (Famotidine 20 Mg Tab) 20 mg PO BID [facility] Last Admin: 09/06/22 07:56 Dose: 20 mg Sodium Chloride (Saline 0.9%) 1,000 mls @ 20 mls/hr IV .Q24H [facility] Stop: 10/02/22 05:55 Last Admin: 09/06/22 04:47 Dose: Not Given Ferric Sodium Gluconate 125 mg (/ Sodium Chloride) 110 mls @ 100 mls/hr IVPB DAILY [facility] Last Admin: 09/06/22 08:49 Dose: 100 mls/hr Lactated Ringer's (Lactated Ringers) 1,000 mls @ 20 mls/hr IV .Q24H [facility] Last Admin: 09/06/22 08:01 Dose: Not Given Levothyroxine Sodium (Levothyroxine 75 Mcg Tab) 75 mcg PO 0630 [facility] Last Admin: 09/06/22 07:57 Dose: 75 mcg Lidocaine HCl (Lidocaine 1% (10mg/Ml) For Iv Start) 0.1 ml INTRADERMA PER PROTOCOL PRN PRN Reason: IV Start Metoprolol Succinate (Metoprolol Succinate (Er) 25 Mg Tab.Er.24h) 12.5 mg PO BID [facility] Last Admin: 09/06/22 07:56 Dose: 12.5 mg Nicotine (Nicotine 21mg/24hr Patch) 1 patch TRANSDERM DAILY [facility] Last Admin: 09/06/22 07:57 Dose: 1 patch Pantoprazole Sodium (Pantoprazole 40 Mg/10 Ml Vial) 40 mg IVP BID [facility] Last Admin: 09/06/22 07:57 Dose: 40 mg Potassium Chloride (Potassium Chloride Er 20 Meq Tab.Er) 20 meq PO DAILY [facility] Last Admin: 09/06/22 07:56 Dose: 20 meq PHYSICAL EXAMINATION: GENERAL: The patient is alert and oriented x4, Well developed, well nourished. HEENT: Pupils are round and equally reacting to light. EOMI. no scleral icterus. No conjunctival pallor. Normocephalic, atraumatic. No pharyngeal erythema. No thyromegaly. CARDIOVASCULAR: S1 and S2 muffled PULMONARY: diminished breath sounds bilaterally with no wheezing or rhonchi noted. ABDOMEN: soft. Non-tender on exam. non-distended, normoactive bowel sounds. No palpable organomegaly. MUSCULOSKELETAL: No joint swelling or deformity. EXTREMITIES: No cyanosis, clubbing, pedal edema 1-2 + pitting more so on the right and also some generalized edema noted of bilateral lower extremities 1+ pitting NEUROLOGICAL: Gross neurological examination did not reveal any focal deficits. SKIN: No rashes. Pale Assessment: Mild shortness of breath with bilateral lower extremity pitting edema with concerns for acute on chronic diastolic CHF exacerbation Acute hypoxic respiratory failure secondary to CHF exacerbation Anemia, of unknown etiology possibly a component of Xarelto use or chronic in nature, microcytic Microcytic iron deficiency anemia COPD, not in exacerbation Paroxysmal Atrial fibrillation Coronary artery disease with previous stenting Hypertension History of rheumatoid arthritis Hypothyroidism HyperLipidemia Continued ongoing nicotine abuse GI prophylaxis DVT prophylaxis Full code Plan: Recommend to continue with current medications and management cardiology following. Patient will follow-up with Dr. Adan in the outpatient setting for discussion of ablation. Xarelto remains on hold currently is patient is scheduled to undergo EGD/colonoscopy with general surgery sometime today. Nothing by mouth currently and will resume diet once cleared by surgery. Patient to continue on Protonix for now. Labs have improved and potassium is 4.0 today. Kidney functions within normal limits and stool was negative. Patient did have low iron studies and currently receiving IV iron. Will await E GD/colonoscopy. Due to multiple complex medical issues, prognosis is guarded Possible discharge in the next 24-48 hours The impression and plan of care has been dictated by Leigha Martinez, nurse practitioner as directed. Dr. Ravinder MD I have performed a history and examination and MDM of this patient, discussed the same with the dictator, and agree with the dictator's assessment and plan as written ,documented as a scribe. Based on total visit time, I have performed more than 50% of the visit. Any additional findings or plans will be noted. Objective - Vital Signs Vital signs: Vital Signs Temp 97.9 F 09/06/22 04:00 Pulse 61 09/06/22 04:00 Resp 15 09/06/22 04:00 BP 111/56 09/06/22 04:00 Pulse Ox 92 L 09/06/22 04:00 FiO2 21 09/05/22 20:35 Intake & Output 09/05/22 09/06/22 09/06/22 18:59 06:59 18:59 Intake Total 960 540 Output Total 200 Balance 960 340 Weight 75.3 kg Intake: Oral 960 540 Output: Urine 200 Other: Voiding Method Toilet Toilet # Voids 3 2 # Bowel Movements 2 2 - Labs CBC & Chem 7: 09/06/22 06:36 09/06/22 06:36 Labs: Abnormal Lab Results - Last 24 Hours (Table) 09/06/22 09/06/22 Range/Units 06:36 06:36 RBC 3.72 L (3.80-5.40) m/uL Hgb 8.0 L (11.4-16.0) gm/dL Hct 27.6 L (34.0-46.0) % MCV 74.3 L (80.0-100.0) fL MCH 21.5 L (25.0-35.0) pg MCHC 28.9 L (31.0-37.0) g/dL RDW 17.6 H (11.5-15.5) % Carbon Dioxide 33 H (22-30) mmol/L BUN 6 L (7-17) mg/dL Calcium 8.0 L (8.4-10.2) mg/dL
[2022-09-06] MEDS ORDERED: MIDAZOLAM 2 MG/2 ML VIAL ONE (16:28)
[2022-09-06] MEDS ORDERED: GLUCAGON 1 MG/ML VIAL ONE (16:28)
[2022-09-06] MEDS ORDERED: LIDOCAINE 2% INJ 20 MG/ML (2 ML VIAL) ONE (16:28)
[2022-09-06] MEDS ORDERED: PROPOFOL 10 MG/ML 20 ML VIAL IV ONE (16:28)
[2022-09-06] MEDS ORDERED: LACTATED RINGERS 1,000 ML IV ONE (16:43)
--- NOTE | 2022-09-06 16:58 | P.OP ---
Date of Procedure: 09/06/22 Preoperative Diagnosis: GI bleed Postoperative Diagnosis: Antral gastritis Significant diverticular disease Procedure(s) Performed: EGD Colonoscopy Anesthesia: MAC Surgeon: Kurtis Lewis Pathology: other (Antrum) Condition: stable Disposition: PACU Description of Procedure: The patient's placed on the endoscopy table in the lateral position. She received IV sedation. The gastro-/oropharynx passed in the esophagus and stomach. Scope was placed through the pylorus. The first and second portion of duodenum appeared normal. Scope was then brought back the antrum this mildly inflamed. A biopsies performed. Scope was then retroflexed and the remainder the stomach appeared normal. The GE junction was at 40 cm. The distal esophagus. Normal. The proximal esophagus appeared. Scope withdrawn for patient. Next digital rectal exam performed. This revealed no abnormalities. The flexible colonoscope was then placed patient anus and passed throughout the colon. The scope could not be advanced beyond the splenic flexure secondary tortuosity valve. There is significant diverticular disease seen in the visualized ascending and sigmoid colon. The scope was then brought back the rectum and this appeared normal. Scope withdrawn for patient. There is no is evidence of any active bleeding. Through the patient may have had bleeding from diverticular disease.
[2022-09-06] MEDS: ATORVASTATIN 40 MG TAB PO SCH (21:28)
[2022-09-06] MEDS: AMIODARONE 100 MG TAB PO SCH (21:28)
[2022-09-07] MEDS: SODIUM CHLORIDE 0.9% 1,000 ML IV SCH (06:42)
[2022-09-07] MEDS: LEVOTHYROXINE 75 MCG TAB PO SCH (06:44)
[2022-09-07 07:27] LABS: Anisocytosis Slight; Hypochromasia Marked; MCH 21.6 pg (25.0-35.0); MCHC 28.4 g/dL (31.0-37.0); Mean Platelet Volume 7.5; Microcytosis Slight; Platelet Count 238 k/uL (150-450); Poikilocytosis Moderate; RBC 3.68 m/uL (3.80-5.40); RDW 17.7 % (11.5-15.5); WBC 6.1 k/uL (3.8-10.6)
[2022-09-07 07:30] VITALS: PULSE 54
[2022-09-07 08:59] VITALS: RESP 18
[2022-09-07] MEDS: PANTOPRAZOLE 40 MG/10 ML VIAL IVP SCH (10:02)
[2022-09-07] MEDS: NICOTINE 21MG/24HR PATCH TRANSDERM SCH (10:02)
[2022-09-07] MEDS: METOPROLOL SUCCINATE (ER) 25 MG TAB.ER.24H PO SCH (10:02)
[2022-09-07] MEDS: POTASSIUM CHLORIDE ER 20 MEQ TAB.ER PO SCH (10:02)
[2022-09-07] MEDS: FAMOTIDINE 20 MG TAB PO SCH (10:03)
[2022-09-07] MEDS: SODIUM FERRIC GLUCONAT-SUCROSE 125 MG in SODIUM CHLORIDE 0.9% 100 ML IVPB SCH (10:03)
[2022-09-07] MEDS: LACTATED RINGERS 1,000 ML IV SCH (10:18)
[2022-09-07 11:34] VITALS: BP 133/71; TEMP 98.2
--- NOTE | 2022-09-07 11:44 | P.PN ---
Subjective Progress Note Date: 09/07/22 HISTORY OF PRESENT ILLNESS: This is a 71-year-old female patient of Dr. Adan with past medical history of CAD status post stenting of the RCA, COPD, persistent atrial fibrillation and tobacco use and dependence. Patient was brought in as a scheduled atrial fibrillation ablation but once patient arrived she was diagnosed with acute heart failure and anemia and procedure was canceled. Patient was transferred to the cardiac stepdown unit and patient admitted to hospitalist. Patient continues to have significant lower extremity edema and has been on Lasix 40 mg IV every 12 hours. Telemetry is sinus rhythm in the 60s, blood pressure 99/61. Pulse ox 96% on 2 L nasal cannula. Patient has not home O2 dependent. Hemoglobin is 7.4. BMP will be ordered for tomorrow. Echocardiogram 07/31/2022 revealed normal size and systolic function, mild mitral and tricuspid regurgitation. 09/04/2022 The patient was seen and evaluated this morning. She is down 11 pounds. The shortness of breath has improved. The lower extremities edema has improved as well. Clearly she is feeling overall better. She is on Lasix IV which I would suggest to continue for additional 24 hours. On examination she has diminished breathing sounds bilaterally with bilateral rhonchi and also she has mild bilateral lower extremities edema. September 052022 The patient was seen this morning. She states "I don't feel good". She is dizzy with standing up. Her pressure has been low. She lost about 5 kg in 24 hours. She is euvolemic on examination she is not on oxygen and no lower except his edema noted. I am going to stop the Lasix and give the patient a bolus of 500 mL of 0.9 normal saline. The only other medication she is on right now his beta jp for atrial fibrillation which I'm going to continue beach she is on oral anticoagulation. She is in normal sinus mechanism. We'll obtain orthostatic blood pressure as well. The physical examination is remarkable for regular rhythm with clear breathing sounds bilaterally and no lower except his edema noted 09/06/2022 Patient examined this morning at the bedside. Patient denies chest pain or pressure. She denies shortness of breath. She reports feeling dizzy. She is scheduled for EGD and colonoscopy today secondary to anemia. Hemoglobin this morning 8.0. Vital signs are stable. Patient's anticoagulation remains on hold. 09/07/2022 Patient examined this morning at the bedside. She is status post EGD and colonoscopy revealing antral gastritis and significant diverticular disease. No evidence of active bleeding. Patient denies any chest pain or pressure. She denies any shortness of breath. Vital signs are stable. PHYSICAL EXAM: VITAL SIGNS: Reviewed. GENERAL: Well-developed in no acute distress. NECK: Supple. No JVD or thyromegaly LUNGS: Respirations even and unlabored. Lungs essentially clear to auscultation bilaterally. HEART: Regular rate and rhythm. S1 and S2 heard. EXTREMITIES: Normal range of motion. No clubbing or cyanosis. Peripheral pulses intact. No lower extremity edema ASSESSMENT: Anemia, status post EGD and colonoscopy Hypotension with dizziness, improving Paroxysmal atrial fibrillation, currently maintaining sinus mechanism Acute heart failure with preserved ejection fraction, currently euvolemic Coronary artery disease with previous stenting of the RCA COPD Nicotine dependence PLAN: Continue current cardiac medications Gen. surgery cleared patient to resume anticoagulation. However the patient states she does not want to take Xarelto at this time and does not feel comfortable taking it. Patients afib ablation will be rescheduled in the future. She is to follow up outpatient with Dr. Adan She may be discharged home from a cardiac standpoint Nurse practitioner note has been reviewed by physician. Signing provider agrees with the documented findings, assessment, and plan of care. Objective - Vital Signs Vital signs: Vital Signs Temp 98.2 F 09/07/22 11:33 Pulse 54 L 09/07/22 11:33 Resp 18 09/07/22 11:33 BP 133/71 09/07/22 11:33 Pulse Ox 96 09/07/22 07:29 FiO2 21 09/05/22 20:35 Intake & Output 09/06/22 09/07/22 09/07/22 18:59 06:59 18:59 Intake Total 480 660 Balance 480 660 Intake: IV 300 Oral 180 660 Other: Voiding Method Toilet Toilet Toilet # Voids 1 1 1 # Bowel Movements 1 - Labs CBC & Chem 7: 09/07/22 06:18 09/07/22 06:18 Labs: Abnormal Lab Results - Last 24 Hours (Table) 09/07/22 09/07/22 Range/Units 06:18 06:18 RBC 3.68 L (3.80-5.40) m/uL Hgb 8.0 L (11.4-16.0) gm/dL Hct 28.0 L (34.0-46.0) % MCV 76.0 L (80.0-100.0) fL MCH 21.6 L (25.0-35.0) pg MCHC 28.4 L (31.0-37.0) g/dL RDW 17.7 H (11.5-15.5) % Glucose 118 H (74-99) mg/dL Calcium 8.0 L (8.4-10.2) mg/dL
--- NOTE | 2022-09-07 12:50 | P.PN ---
Subjective Progress Note Date: 09/07/22 CHIEF COMPLAINT: Anemia HISTORY OF PRESENT ILLNESS: Patient is status post EGD and colonoscopy that had demonstrated antral gastritis and significant diverticular disease. There is no evidence of any active bleeding. The patient may have had bleeding from diverticular disease. Patient's hemoglobin is stable at 8.0. Iron levels low at 12. Patient scheduled for discharge today. Denies any blood in her stools. Patient would prefer not to be on anticoagulation if possible. But she does have a known history of atrial fibrillation and was initially scheduled for a cardiac ablation. Patient seen and examined with Dr. gardner PHYSICAL EXAM: VITAL SIGNS: Reviewed. GENERAL: Well-developed in no acute distress. HEENT: No sclera icterus. Extraocular movements grossly intact. Moist buccal mucosa. Head is atraumatic, normocephalic. ABDOMEN: Soft. Nondistended. Nontender. NEUROLOGIC: Alert and oriented. Cranial nerves II through XII grossly intact. ASSESSMENT: 1. Anemia status post EGD and colonoscopy revealing antral gastritis and significant diverticular disease PLAN: -Patient can resume anticoagulation from surgical standpoint -Agree with iron supplement -Recommend to continue monitoring for any signs or symptoms of bleeding Physician Garment Cutter note has been reviewed by physician. Signing provider agrees with the documented findings, assessment, and plan of care. Objective - Vital Signs Vital signs: Vital Signs Temp 98.2 F 09/07/22 11:33 Pulse 54 L 09/07/22 11:33 Resp 18 09/07/22 11:33 BP 133/71 09/07/22 11:33 Pulse Ox 96 09/07/22 07:29 FiO2 21 09/05/22 20:35 Intake & Output 09/06/22 09/07/22 09/07/22 18:59 06:59 18:59 Intake Total 480 660 Balance 480 660 Intake: IV 300 Oral 180 660 Other: Voiding Method Toilet Toilet Toilet # Voids 1 1 1 # Bowel Movements 1 - Labs CBC & Chem 7: 09/07/22 06:18 09/07/22 06:18 Labs: Abnormal Lab Results - Last 24 Hours (Table) 09/07/22 09/07/22 Range/Units 06:18 06:18 RBC 3.68 L (3.80-5.40) m/uL Hgb 8.0 L (11.4-16.0) gm/dL Hct 28.0 L (34.0-46.0) % MCV 76.0 L (80.0-100.0) fL MCH 21.6 L (25.0-35.0) pg MCHC 28.4 L (31.0-37.0) g/dL RDW 17.7 H (11.5-15.5) % Glucose 118 H (74-99) mg/dL Calcium 8.0 L (8.4-10.2) mg/dL
--- NOTE | 2022-09-09 20:40 | P.DS ---
Providers Date of admission: 09/02/22 14:45 Expected date of discharge: 09/07/22 Attending physician: Cindy Villarreal Consults: 09/02/22 14:44 Consult Physician Urgent Consulting Provider: Arnaldo Arambula Consult Reason/Comments: afib, chf, was scheduled for ablation today Do you want consulting provider notified?: Yes Placement Type Exists?: Yes 09/02/22 14:46 Consult Physician Urgent Consulting Provider: Kurtis Lewis Consult Reason/Comments: anemia Do you want consulting provider notified?: Yes Primary care physician: Jeramie Watts Hospital Course: Final diagnosis Mild shortness of breath with bilateral lower extremity pitting edema with concerns for acute on chronic diastolic CHF exacerbation Acute hypoxic respiratory failure secondary to CHF exacerbation Anemia, chronic, Microcytic iron deficiency anemia COPD, not in exacerbation Paroxysmal Atrial fibrillation Coronary artery disease with previous stenting Hypertension History of rheumatoid arthritis Hypothyroidism HyperLipidemia Continued ongoing nicotine abuse GI prophylaxis DVT prophylaxis Full code Discharge disposition Patient is being discharged in a stable condition with guarded prognosis to home. Patient will follow-up with Dr. Watts in the outpatient setting upon discharge. Patient is to follow up with Dr. Adan outpatient as scheduled. Total time taken is greater than 35 minutes. Hospital course This is a 71-year-old female who was recently admitted after being scheduled for outpatient elective ablation for atrial fibrillation with cardiology and found to be anemic as well as in possible acute on chronic CHF exacerbation. Patient was also seen and evaluated by general surgery to evaluate for any source of GI bleed. Patient most likely with diverticular disease with no signs of acute bleeding. Patient to be resumed on Xarelto although is currently refusing. Risks versus benefits were discussed multiple times as patient needs to be on anticoagulation and patient verbalized understanding. Recommend close outpatient follow-up this week. Currently no reports of chest pain, shortness of breath, or palpitations. Patient is afebrile. No reports of nausea or vomiting and patient is tolerating diet. patient has been cleared by consultations for discharge. Patient will be discharged home today. guarded prognosis and high risk for readmission given patient's noncompliance. patient also instructed to continue to avoid tobacco use and exposure. Physical exam: Gen: This is a 71-year-old female who is awake, alert and oriented 3, well-developed, well-nourished. HEENT: Head is atraumatic, normocephalic. Pupils equal, round. Sclerae is anicteric. NECK: Supple. No JVD. No lymphadenopathy. No thyromegaly. LUNGS: Clear to auscultation. No wheezes or rhonchi. No intercostal retractions. HEART: Regular rate and rhythm. No murmur. ABDOMEN: Soft. Bowel sounds are present. No masses. No tenderness. EXTREMITIES: No pedal edema. No calf tenderness. NEUROLOGICAL: Patient is awake, alert and oriented x3. Cranial nerves 2 through 12 are grossly intact. Please refer to medication reconciliation sheet for a list of medications. The impression and plan of care has been dictated by Leigha Martinez, Nurse Practitioner as directed. Dr. Ravinder MD I have performed a history and examination and MDM of this patient, discussed th e with the dictator, and agree with the dictator's assessment and plan as written ,documented as a scribe. Based on total visit time, I have performed more than 50% of the visit. Patient Condition at Discharge: Fair Plan - Discharge Summary Discharge Rx Participant: No New Discharge Prescriptions: New Ferrous Sulfate [Feosol] 325 mg PO DAILY #30 tab Docusate [Colace] 100 mg PO DAILY #30 capsule Continue Levothyroxine Sodium [Synthroid] 75 mcg PO DAILY Rivaroxaban [Xarelto] 20 mg PO HS Amiodarone [Cordarone] 100 mg PO HS Nicotine 21Mg/24Hr Patch [Habitrol] 1 patch TRANSDERM DAILY #7 patch Famotidine [Pepcid] 20 mg PO BID #60 tab Furosemide [Lasix] 20 mg PO DAILY #30 tab Potassium Chloride ER [K-Dur 20] 20 meq PO DAILY 30 Days #30 tab Metoprolol Succinate [Metoprolol Succinate ER] 12.5 mg PO BID Atorvastatin [Lipitor] 40 mg PO HS Discharge Medication List Levothyroxine Sodium [Synthroid] 75 mcg PO DAILY 04/13/17 [History] Rivaroxaban [Xarelto] 20 mg PO HS 07/18/22 [History] Famotidine [Pepcid] 20 mg PO BID #60 tab 08/01/22 [Rx] Furosemide [Lasix] 20 mg PO DAILY #30 tab 08/01/22 [Rx] Nicotine 21Mg/24Hr Patch [Habitrol] 1 patch TRANSDERM DAILY #7 patch 08/01/22 [Rx] Amiodarone [Cordarone] 100 mg PO HS 08/03/22 [History] Metoprolol Succinate [Metoprolol Succinate ER] 12.5 mg PO BID 08/03/22 [History] Potassium Chloride ER [K-Dur 20] 20 meq PO DAILY 30 Days #30 tab 08/03/22 [Rx] Atorvastatin [Lipitor] 40 mg PO HS 09/02/22 [History] Docusate [Colace] 100 mg PO DAILY #30 capsule 09/07/22 [Rx] Ferrous Sulfate [Feosol] 325 mg PO DAILY #30 tab 09/07/22 [Rx] Follow up Appointment(s)/Referral(s): Alan Adan DO [STAFF PHYSICIAN] - 09/14/22 2:00 pm Jeramie Watts DO [Primary Care Provider] - 1 Week (Office put you on cancellation list. Will call you with an appointment. ) [facility] Visiting Nurse, [NON-STAFF] - Patient Instructions/Handouts: A-fib (Atrial Fibrillation) (DC), Iron Deficiency Anemia (GEN) Activity/Diet/Wound Care/Special Instructions: Activity Limited until follow-up Follow-up cardiology outpatient and discuss Xarelto or other possible options and further down the line ablation Continue iron supplement daily and follow-up with primary care provider recommend repeat labs in the next few weeks to monitor hemoglobin Continue heart healthy diet if having lower extremity swelling recommend using Jose wraps from the toes up to the knees and elevate lower extremities well at rest Recommend to discontinue tobacco use and exposure Discharge Disposition: HOME WITH HOME HEALTH SERVICES
== END 2022-09-07 12:39 | disposition home health service (06) | DRG 291 ==
LOC: CATHEP 10:53 → 3SCARD 13:12 → CATHEP 14:45
PROVIDERS: ADMIT Internal Medicine; ATTEND Internal Medicine
PROC: 0DB18ZX Excision of Upper Esophagus, Via Natural or Artificial Opening Endoscopic, Diagnostic (ICD-10-PCS; principal; 2022-09-06 13:50)
PROC: 0DJD8ZZ Inspection of Lower Intestinal Tract, Via Natural or Artificial Opening Endoscopic (ICD-10-PCS; principal; 2022-09-06 13:50)
PROC: 0DB78ZX Excision of Stomach, Pylorus, Via Natural or Artificial Opening Endoscopic, Diagnostic (ICD-10-PCS; principal; 2022-09-06 13:50)
DX: I11.0 Hypertensive heart disease with heart failure (principal); I50.33 Acute on chronic diastolic (congestive) heart failure; K57.31 Diverticulosis of large intestine without perforation or abscess with bleeding; J96.21 Acute and chronic respiratory failure with hypoxia; I48.19 Other persistent atrial fibrillation; I47.1 Supraventricular tachycardia; I95.9 Hypotension, unspecified; E03.9 Hypothyroidism, unspecified; D50.9 Iron deficiency anemia, unspecified; M06.9 Rheumatoid arthritis, unspecified; J44.9 Chronic obstructive pulmonary disease, unspecified; Z28.310 Unvaccinated for COVID-19; K29.70 Gastritis, unspecified, without bleeding; I25.10 Atherosclerotic heart disease of native coronary artery without angina pectoris; I08.1 Rheumatic disorders of both mitral and tricuspid valves; E78.5 Hyperlipidemia, unspecified; I25.2 Old myocardial infarction; F17.210 Nicotine dependence, cigarettes, uncomplicated; Z71.6 Tobacco abuse counseling; Z53.8 Procedure and treatment not carried out for other reasons; Z79.890 Hormone replacement therapy; Z79.01 Long term (current) use of anticoagulants; Z79.899 Other long term (current) drug therapy; Z96.641 Presence of right artificial hip joint; Z95.5 Presence of coronary angioplasty implant and graft; Z86.14 Personal history of Methicillin resistant Staphylococcus aureus infection; Z88.2 Allergy status to sulfonamides; Z88.8 Allergy status to other drugs, medicaments and biological substances; Z91.040 Latex allergy status
CPT/HCPCS: 43239; 45378; 71045; 80048; 82272; 82728; 83540; 83550; 83735; 83880; 85025; 85027; 86850; 86900; 86901; 88305; 94760

== ENCOUNTER 2023-04-01 10:10 | Emergency (ER) | payer MEDICARE ==
[2023-04-01 10:16] VITALS: RESP 18
[2023-04-01] MEDS ORDERED: KETOROLAC 15 MG/ML 1 ML VIAL IM STA (10:39)
--- NOTE | 2023-04-01 11:04 | XR ---
EXAMINATION TYPE: XR toes RT DATE OF EXAM: 04/01/2023 COMPARISON: NONE HISTORY: Pain TECHNIQUE: Three views are submitted. FINDINGS: There is a severe hallux valgus deformity with moderate to severe first MTP joint arthropathy. There is arthropathy second, third and fourth MTPs. Correlate for subluxation of the second and third proxi mal phalanx relative to the metatarsal head. Diffuse osteopenia. There is a peripancreatic joint arthropathy at the second through fifth digits. T here is diffuse soft tissue edema. IMPRESSION: 1. No acute fracture or dislocation. If symptoms persist, follow-up exam in 7 to 10 days could be ob tained. 2. Cannot exclude subluxation of the proximal phalanx of the second and third digits relative to the respective metatarsal heads. Correlate clinically. 3. Severe first MTP joint arthropathy with hallux valgus deformity.
--- NOTE | 2023-04-01 12:16 | US ---
EXAMINATION TYPE: US venous doppler duplex LE RT DATE OF EXAM: 04/01/2023 11:49 AM COMPARISON: 07/18/22 CLINICAL INDICATION: Female, 72 years old with history of pain; severe Rt post knee pain radiating to toes and causing numbness SIDE PERFORMED: Right TECHNIQUE: The lower extremity deep venous system is examined utilizing real time linear array sonog lottie with graded compression, doppler sonography and color-flow sonography. VESSELS IMAGED: Common Femoral Vein Deep Femoral Vein Greater Saphenous Vein * Femoral Vein Popliteal Vein Small Saphenous Vein * Proximal Calf Veins (* superficial vessels) Right Leg: Negative for DVT complex appearing galindo cyst posterior lateral knee measuring up to 8cm but may extend further. View limited by transducer FOV/penetration. PT has had galindo cysts aspirated in the past IMPRESSION: Grayscale, color doppler, spectral doppler imaging performed of the deep veins of the lo wer extremities. There is normal flow, compressibility, vascular waveforms.
--- NOTE | 2023-04-01 12:22 | ED ---
Lower Extremity Injury HPI - General Chief Complaint: Extremity Injury, Lower Stated Complaint: Leg pain Time Seen by Provider: 04/01/23 10:29 Source: patient Mode of arrival: EMS Limitations: physical limitation - History of Present Illness Initial Comments: Patient is a 72-year-old female who presents to the emergency department for right leg pain. Patient reports pain in the back of her knee which started today. Patient did stub her toe 5 days ago otherwise denies injury. She does have pain in her right second toe with bruising. She denies calf pain and swelling. Denies fever and chills. Denies history of DVT and PE. No chest pain or shortness of breath MD Complaint: hip injury - Related Data Home Medications Medication Instructions Recorded Confirmed Levothyroxine Sodium [Synthroid] 75 mcg PO DAILY 04/13/17 09/02/22 Rivaroxaban [Xarelto] 20 mg PO HS 07/18/22 09/02/22 Amiodarone [Cordarone] 100 mg PO HS 08/03/22 09/02/22 Metoprolol Succinate [Metoprolol 12.5 mg PO BID 08/03/22 09/02/22 Succinate ER] Atorvastatin [Lipitor] 40 mg PO HS 09/02/22 09/02/22 Previous Rx's Medication Instructions Recorded Famotidine [Pepcid] 20 mg PO BID #60 tab 08/01/22 Furosemide [Lasix] 20 mg PO DAILY #30 tab 08/01/22 Nicotine 21Mg/24Hr Patch [Habitrol] 1 patch TRANSDERM DAILY #7 patch 08/01/22 Potassium Chloride ER [K-Dur 20] 20 meq PO DAILY 30 Days #30 tab 08/03/22 Docusate [Colace] 100 mg PO DAILY #30 capsule 09/07/22 Ferrous Sulfate [Feosol] 325 mg PO DAILY #30 tab 09/07/22 Ibuprofen [Motrin] 600 mg PO Q8HR PRN #20 tab 04/01/23 Allergies Allergy/AdvReac Type Severity Reaction Status Date / Time adhesive tape Allergy Rash/Hives Verified 04/01/23 10:16 iodine Allergy Anaphylaxis Verified 04/01/23 10:16 latex Allergy Rash/Hives Verified 04/01/23 10:16 sulfamethoxazole Allergy Rash/Hives Verified 04/01/23 10:16 [From Bactrim] trimethoprim [From Bactrim] Allergy Rash/Hives Verified 04/01/23 10:16 diphenhydramine AdvReac Confusion Verified 04/01/23 10:16 [From Benadryl] Review of Systems ROS Statement: Those systems with pertinent positive or pertinent negative responses have been documented in the HPI. ROS Other: All systems not noted in ROS Statement are negative. Past Medical History Past Medical History: Atrial Fibrillation, Coronary Artery Disease (CAD), COPD, Hyperlipidemia, Hypertension, Rheumatoid Arthritis (RA), Supraventricular Tachycardia (SVT), Thyroid Disorder Additional Past Medical History / Comment(s): CAD post NSTEMI with PCI of the RCA. Last Myocardial Infarction Date:: 2018 History of Any Multi-Drug Resistant Organisms: MRSA, Other MDRO Date of last positivie culture/infection: 2006 MDRO Source:: Right leg Past Surgical History: Appendectomy, Section, Cholecystectomy, Heart Catheterization With Stent, Hysterectomy, Orthopedic Surgery Additional Past Surgical History / Comment(s): rt hip replacement 12/16/21 Past Anesthesia/Blood Transfusion Reactions: No Reported Reaction Date of Last Stent Placement:: 12/01 Past Psychological History: No Psychological Hx Reported Smoking Status: Former smoker Past Alcohol Use History: None Reported Past Drug Use History: None Reported - Past Family History Father Family Medical History: Cancer Additional Family Medical History / Comment(s): Father at age 51 from lung cancer with metastatic disease. Mother Family Medical History: Rheumatoid Arthritis (RA) Additional Family Medical History / Comment(s): Mother at age 77 from old age but had history of rheumatoid arthritis. Brother(s) Additional Family Medical History / Comment(s): Patient had 1 brother that from complications of agent orange. Daughter(s) Additional Family Medical History / Comment(s): Patient has 3 children with no major medical problems. Sister(s) Family Medical History: Renal Disease, Vascular Disorder General Exam Limitations: physical limitation General appearance: alert Eye exam: Present: normal appearance, PERRL, EOMI. Absent: scleral icterus, conjunctival injection, periorbital swelling Respiratory exam: Present: normal lung sounds bilaterally. Absent: respiratory distress, wheezes, rales, rhonchi, stridor Cardiovascular Exam: Present: regular rate, normal rhythm, normal heart sounds. Absent: systolic murmur, diastolic murmur, rubs, gallop, clicks Extremities exam: Present: normal capillary refill, other (Tenderness posterior right knee no obvious swelling. No erythema. Tender to palpation. Bruising right second toe with tenderness. No deformity. RLE neurovascularly intact full range of motion ) Neurological exam: Present: alert Psychiatric exam: Present: normal affect, normal mood Skin exam: Present: warm, dry, intact, normal color. Absent: rash Course Vital Signs 04/01/23 04/01/23 10:12 12:33 Temperature 98.4 F 97.9 F Pulse Rate 70 65 Respiratory 18 18 Rate Blood Pressure 129/72 119/70 O2 Sat by Pulse 91 L 96 Oximetry Medical Decision Making - Medical Decision Making Was pt. sent in by a medical professional or institution (, [facility], [employer], urgent care, hospital, or half-way...) When possible be specific @ -No Did you speak to anyone other than the patient for history (EMS, parent, family, police, friend...)? What history was obtained from this source @ -No Did you review nursing and triage notes (agree or disagree)? Why? @ -I reviewed and agree with nursing and triage notes Were old charts reviewed (outside hosp., previous admission, EMS record, old EKG, old radiological studies, urgent care reports/EKG's, half-way records)? Report findings @ -No old charts were reviewed Differential Diagnosis (chest pain, altered mental status, abdominal pain women, abdominal pain men, vaginal bleeding, weakness, fever, dyspnea, syncope, headache, dizziness, GI bleed, back pain, seizure, CVA, palpatations, mental health)? @ -not applicable EKG interpreted by me (3pts min.). @ -As above X-rays interpreted by me (1pt min.). @ -No acute fracture or dislocation of the toe CT interpreted by me (1pt min.). @ -None U/S interpreted by me (1pt. min.). @ -Zimmerman's cyst no evidence of DVT What testing was considered but not performed or refused? (CT, X-rays, U/S, labs)? Why? @ -None What meds were considered but not given or refused? Why? @ -None Did you discuss the management of the patient with other professionals (professionals i.e. [facility], [employer]ER, lab, RT, psych nurse, social media assistant, breaker off, teacher, administrative officer, transplant case manager)? Give summary @ -No Was smoking cessation discussed for >3mins.? @ -No Was critical care preformed (if so, how long)? @ -No Were there social determinants of health that impacted care today? How? (Homelessness, low income, unemployed, alcoholism, drug addiction, transportation, low edu. Level, literacy, decrease access to med. care, prison, rehab)? @ -No Was there de-escalation of care discussed even if they declined (Discuss DNR or withdrawal of care, Hospice)? DNR status @ -No What co-morbidities impacted this encounter? (DM, HTN, Smoking, COPD, CAD, Cancer, CVA, ARF, Chemo, Hep., AIDS, mental health diagnosis, sleep apnea, morbid obesity)? @ -None Was patient admitted / discharged? Hospital course, mention meds given and route, prescriptions, significant lab abnormalities, going to OR and other pertinent info. @ -No evidence of DVT or fracture/dislocation of the toe. Discharged with symptomatic management for right Zimmerman's cyst Undiagnosed new problem with uncertain prognosis? @ -No Drug Therapy requiring intensive monitoring for toxicity (Heparin, Nitro, Insulin, Cardizem)? @ -No Were any procedures done? @ -[No] Diagnosis/symptom? @ -Zimmerman's cyst Acute, or Chronic, or Acute on Chronic? @ -Acute Uncomplicated (without systemic symptoms) or Complicated (systemic symptoms)? @Uncomplicated Side effects of treatment? @ -[No] Exacerbation, Progression, or Severe Exacerbation? @ -[No] Poses a threat to life or bodily function? How? (Chest pain, USA, MT, pneumonia, PE, COPD, DKA, ARF, appy, cholecystitis, CVA, Diverticulitis, Homicidal, Suicidal, threat to staff... and all critical care pts) @ -[No] Dr. Phillip my attending Disposition Clinical Impression: Zimmerman's cyst of knee Disposition: HOME SELF-CARE Condition: Good Instructions (If sedation given, give patient instructions): Zimmerman Cyst (ED) Additional Instructions: Apply warm compress the knee. Follow-up with primary care provider in one to 2 days. Return tot emergency department if you experience new, concerning, or worsening symptoms. Prescriptions: Ibuprofen [Motrin] 600 mg PO Q8HR PRN #20 tab PRN Reason: Pain Is patient prescribed a controlled substance at d/c from ED?: No Referrals: Jeramie Watts DO [Primary Care Provider] - 1-2 days
[2023-04-01 12:35] VITALS: BP 119/70; PULSE 65; TEMP 97.9
== END 2023-04-01 12:45 | disposition home or self-care (01) ==
LOC: EC 10:10
DX: M71.21 Synovial cyst of popliteal space [Baker], right knee (principal); M06.9 Rheumatoid arthritis, unspecified; I10 Essential (primary) hypertension; I25.10 Atherosclerotic heart disease of native coronary artery without angina pectoris; I25.2 Old myocardial infarction; I48.91 Unspecified atrial fibrillation; J44.9 Chronic obstructive pulmonary disease, unspecified; E78.5 Hyperlipidemia, unspecified; E07.9 Disorder of thyroid, unspecified; Z79.890 Hormone replacement therapy; Z87.891 Personal history of nicotine dependence; Z79.01 Long term (current) use of anticoagulants; Z79.899 Other long term (current) drug therapy; Z88.1 Allergy status to other antibiotic agents; Z88.2 Allergy status to sulfonamides; Z88.8 Allergy status to other drugs, medicaments and biological substances; Z91.040 Latex allergy status; Z91.041 Radiographic dye allergy status; Z91.09 Other allergy status, other than to drugs and biological substances
CPT/HCPCS: 96372 ×2; 99284 ×2; 73660; 93971; J1885

== ENCOUNTER 2024-03-26 12:00 | Inpatient (IN) | payer MEDICARE ==
[2024-04-02] MEDS ORDERED: ALVIMOPAN 12 MG CAPSULE ONE ×2 (14:17)
[2024-04-02] MEDS ORDERED: HEPARIN SODIUM,PORCINE 5,000 UNIT/ML 1 ML VIAL ONE ×2 (14:17)
[2024-04-02] MEDS ORDERED: ACETAMINOPHEN TAB 500 MG TAB ONE ×2 (14:17)
[2024-04-02] MEDS ORDERED: ONDANSETRON 4 MG/2 ML VIAL ONE ×2 (14:17)
[2024-04-02] MEDS ORDERED: DEXAMETHASONE SOD PHOSPHATE 4 MG/ML 1 ML VIAL ONE ×2 (14:17)
[2024-04-02] MEDS ORDERED: HYDROCORTISONE SUCCINATE 100 MG/2 ML VIAL ONE ×2 (15:37)
[2024-04-02] MEDS ORDERED: ROPIVACAINE 5 MG/ML 30 ML VIAL ONE ×2 (17:03)
[2024-04-02] MEDS ORDERED: MIDAZOLAM 2 MG/2 ML VIAL ONE ×2 (17:03)
[2024-04-02] MEDS ORDERED: fentaNYL (PF) 50 MCG/ML 2 ML AMP ONE ×2 (17:03)
[2024-04-02] MEDS ORDERED: SODIUM CHLORIDE 0.9% (PF) VIAL 20 ML ONE ×2 (17:04)
[2024-04-03] MEDS ORDERED: ACETAMINOPHEN IV (For NPO) 100 ML ONE ×6 (06:53→18:34)
[2024-04-03] MEDS ORDERED: PANTOPRAZOLE 40 MG/10 ML VIAL ONE ×2 (08:41)
[2024-04-03] MEDS ORDERED: HEPARIN SODIUM,PORCINE 5,000 UNIT/ML 1 ML VIAL ONE ×4 (08:41→20:33)
[2024-04-03] MEDS ORDERED: metroNIDAZOLE-NS PMX 100 ML ONE ×2 (13:48)
[2024-04-04] MEDS ORDERED: ACETAMINOPHEN IV (For NPO) 100 ML ONE ×4 (01:38→11:54)
[2024-04-04] MEDS ORDERED: ONDANSETRON 4 MG/2 ML VIAL ONE ×2 (03:01)
[2024-04-04] MEDS ORDERED: PANTOPRAZOLE 40 MG/10 ML VIAL ONE ×2 (08:35)
[2024-04-04] MEDS ORDERED: HEPARIN SODIUM,PORCINE 5,000 UNIT/ML 1 ML VIAL ONE ×2 (09:30)
[2024-04-04] MEDS ORDERED: metroNIDAZOLE-NS PMX 100 ML ONE ×2 (10:12)
== END 2024-04-04 14:20 | disposition home or self-care (01) | DRG 331 ==
LOC: 4SSUR 04-02 22:37
PROVIDERS: ADMIT Surgery Plastic and Reconstructive Surgery; ATTEND Surgery Plastic and Reconstructive Surgery
PROC: 0DTF4ZZ Resection of Right Large Intestine, Percutaneous Endoscopic Approach (ICD-10-PCS; principal; 2024-04-02)
PROC: 0DNW4ZZ Release Peritoneum, Percutaneous Endoscopic Approach (ICD-10-PCS; 2024-04-02)
DX: C18.9 Malignant neoplasm of colon, unspecified (principal); E03.9 Hypothyroidism, unspecified; K66.0 Peritoneal adhesions (postprocedural) (postinfection); I48.91 Unspecified atrial fibrillation; Z79.01 Long term (current) use of anticoagulants; I10 Essential (primary) hypertension; Z88.2 Allergy status to sulfonamides; Z91.040 Latex allergy status; Z79.899 Other long term (current) drug therapy; R19.7 Diarrhea, unspecified

== ENCOUNTER → 2024-04-02 | Day surgery (SDC) | payer MEDICARE ==
--- NOTE | 2024-06-11 18:41 | P.GSHP ---
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 She underwent cardiac risk assessment including optimization prior to surgery as well as a high-protein low carbohydrate 2-week diet. Patient presents for surgical resection. PAST MEDICAL HISTORY: Please see list. PAST SURGICAL HISTORY: Please see list. MEDICATIONS: Please see list. ALLERGIES: Please see list. SOCIAL HISTORY: No illicit drug use FAMILY HISTORY: No reports of Crohn disease or ulcerative colitis. REVIEW OF ORGAN SYSTEMS: CONSTITUTIONAL: Denies any fever or chills. HEENT: Denies any trouble with vision or nosebleeds. No difficulty swallowing. LYMPHATIC: The patient denies any lumps and bumps around the neck. ENDOCRINE: Has hypothyroidism. RESPIRATORY: Denies pneumonia. Denies any troubles with breathing or dyspnea on exertion. CARDIOVASCULAR: Hypertensive heart disease. GASTROINTESTINAL: Has gastroesophageal reflux disease. New diagnosis colon cancer. GENITOURINARY: No blood in urine. MUSCULOSKELETAL: Has back pain, stiffness, joint arthritis. NEUROLOGIC: Denies any numbness or tingling along the distal extremities. No seizure disorders or headaches. PSYCHIATRIC: Denies depression or suidical ideation. HEMATOLOGIC: Denies any abnormal bleeding or bruising. PHYSICAL EXAM: VITAL SIGNS: Stable GENERAL: Well-developed pleasant in no acute distress. HEENT: No scleral icterus. Extraocular movements grossly intact. Moist buccal mucosa. NECK: Supple without lymphadenopathy. CHEST: Unlabored respirations. Equal bilateral excursions. CARDIOVASCULAR: Regular rate and rhythm. Distal 2+ pulses. ABDOMEN: Soft, nontender, nondistended. MUSCULOSKELETAL: No clubbing, cyanosis, or edema. NERUO: Cranial nerves II through XII grossly intact PSYCH: Alert and oriented to person place and time. ASSESSMENT: 1. Colon cancer, cecal. 2. Hypertensive heart disease PLAN: 1. Benefits and risk of right hemicolectomy described robotic assisted approach. 2. Patient is elevated risk due to pre-existing comorbidities. 3. Inpatient hospitalization described. 4. She is elevated risk due to pre-existing comorbidities 5. CBC, CMP on day of procedure 6. Nonnarcotic pain management described but abdominal wall block Past Medical History Past Medical History: Atrial Fibrillation, Coronary Artery Disease (CAD), COPD, Hyperlipidemia, Hypertension, Rheumatoid Arthritis (RA), Supraventricular Tachycardia (SVT), Thyroid Disorder Additional Past Medical History / Comment(s): CAD post NSTEMI with PCI of the RCA. Last Myocardial Infarction Date:: 2018 History of Any Multi-Drug Resistant Organisms: MRSA, Other MDRO Date of last positivie culture/infection: 2006 MDRO Source:: Right leg Past Surgical History: Appendectomy, Section, Cholecystectomy, Heart Catheterization With Stent, Hysterectomy, Orthopedic Surgery Additional Past Surgical History / Comment(s): rt hip replacement 12/16/21 Past Anesthesia/Blood Transfusion Reactions: No Reported Reaction Date of Last Stent Placement:: 12/01 Smoking Status: Former smoker - Past Family History Father Family Medical History: Cancer Additional Family Medical History / Comment(s): Father at age 51 from lung cancer with metastatic disease. Mother Family Medical History: Rheumatoid Arthritis (RA) Additional Family Medical History / Comment(s): Mother at age 77 from old age but had history of rheumatoid arthritis. Brother(s) Additional Family Medical History / Comment(s): Patient had 1 brother that from complications of agent orange. Daughter(s) Additional Family Medical History / Comment(s): Patient has 3 children with no major medical problems. Sister(s) Family Medical History: Renal Disease, Vascular Disorder Medications and Allergies Home Medications Medication Instructions Recorded Confirmed Type Levothyroxine Sodium [Synthroid] 75 mcg PO DAILY 04/13/17 11/16/23 History Rivaroxaban [Xarelto] 20 mg PO HS 07/18/22 11/16/23 History Famotidine [Pepcid] 20 mg PO BID #60 tab 08/01/22 11/16/23 Rx Furosemide [Lasix] 20 mg PO DAILY #30 tab 08/01/22 11/16/23 Rx Nicotine 21Mg/24Hr Patch [Habitrol] 1 patch TRANSDERM DAILY #7 patch 08/01/22 11/16/23 Rx Amiodarone [Cordarone] 100 mg PO HS 08/03/22 11/16/23 History Metoprolol Succinate [Metoprolol 12.5 mg PO BID 08/03/22 11/16/23 History Succinate ER] Potassium Chloride ER [K-Dur 20] 20 meq PO DAILY 30 Days #30 tab 08/03/22 11/16/23 Rx Atorvastatin [Lipitor] 40 mg PO HS 09/02/22 11/16/23 History Docusate [Colace] 100 mg PO DAILY #30 capsule 09/07/22 11/16/23 Rx Ferrous Sulfate [Feosol] 325 mg PO DAILY #30 tab 09/07/22 11/16/23 Rx Ibuprofen [Motrin] 600 mg PO Q8HR PRN #20 tab 04/01/23 11/16/23 Rx Allergies Allergy/AdvReac Type Severity Reaction Status Date / Time adhesive tape Allergy Rash/Hives Verified 11/16/23 13:04 iodine Allergy Anaphylaxis Verified 11/16/23 13:04 latex Allergy Rash/Hives Verified 11/16/23 13:04 sulfamethoxazole Allergy Rash/Hives Verified 11/16/23 13:04 [From Bactrim] trimethoprim [From Bactrim] Allergy Rash/Hives Verified 11/16/23 13:04 diphenhydramine AdvReac Confusion Verified 11/16/23 13:04 [From Benadryl]
--- NOTE | 2024-06-11 18:54 | P.OP ---
Date of Procedure: 04/02/24 Description of Procedure: SURGEON: JANELL ESTEVEZ MD Preoperative Diagnosis: 1. Cecal cancer 2. Hypertensive heart disease history of with congestive heart failure 3. Heart catheterization with stent placement 4. Coronary artery disease 5. Atrial fibrillation 6. Chronic anticoagulant use 7. Tobacco abuse disorder 8. Hypothyroidism 9. Iron deficiency anemia 10. Gastroesophageal reflux disease 11. Hyperlipidemia 12. Rheumatoid arthritis 13. History of supraventricular tachyarrhythmia 14. History of multidrug-resistant organism Postoperative Diagnosis: 1. Cecal cancer 2. Hypertensive heart disease history of with congestive heart failure 3. Heart catheterization with stent placement 4. Coronary artery disease 5. Atrial fibrillation 6. Chronic anticoagulant use 7. Tobacco abuse disorder 8. Hypothyroidism 9. Iron deficiency anemia 10. Gastroesophageal reflux disease 11. Hyperlipidemia 12. Rheumatoid arthritis 13. History of supraventricular tachyarrhythmia 14. History of multidrug-resistant organism 15. Severe pelvic adhesions 16. Hepatomegaly with fatty liver disease Procedure(s) Performed: 1. Robot-assisted daVinci Xi laparoscopic ileocolectomy with right hemicolectomy using multi four-port technique 2. Robot-assisted daVinci Xi laparoscopic extensive lysis of adhesions over 1 hours Anesthesia: GETA, local, regional Estimated Blood Loss (ml): 20 Condition: stable SPECIMENS REMOVED: right colon en bloc, anastomosis x 3 COMPLICATIONS: None. Disposition: floor Operative Findings: 1. Tattoo proximal ascending colon resected 2. Presence of extensive pelvic adhesions requiring over 1 hour extensive lysis of adhesions 3. Revision of anastomosis performed with double fire 4. Double docking performed to address severe pelvic adhesions with additional 2 more 8 mm trocars 5. Hepatomegaly with fatty liver disease identified INDICATIONS: The patient is a 73-year-old female who presents with diagnosis of cecal cancer. She has multiple precomorbid conditions including hypertensive heart disease, coronary artery disease for which cardiac risk stratification was performed. Patient was placed on enhanced dietary restriction including high- protein low-carb diet for optimal recovery. Overall, patient did very high risk due to pre-existing heart disease. Surgical intervention with colon resection was described in detail. Benefits and risks, including infection, open surgery possibility for additional surgery was discussed at length. Informed consent was obtained. All questions of the patient and family were answered. DESCRIPTION: Earlier the patient had undergone a bowel prep using the enhanced colon recovery program. The patient was transferred to the operating room and placed in supine position. After general anesthetic, a coats catheter was placed. The abdomen was then prepped and draped in standard sterile fashion as Ioban was placed along the abdomen to minimize any contamination of skin floor. After a timeout protocol was performed, attention was then brought to the left upper quadrant whereby a 0 degree 5 mm laparoscopic trocar entry was performed. The abdominal cavity was entered and insufflated to 15 mmHg pressure, which was tolerated well. Diagnostic laparoscopy demonstrated no injury to bowel, viscera or mesentery. Fatty liver disease hepatomegaly was identified. Pelvic adhesions were identified requiring adjustment of trocars along the epigastrium. Next two robotic 8-mm trocars were placed along the left lower lateral abdominal wall. A 12 mm trocar was placed along the left upper quadrant. Ports were placed 8 cm apart from each other including 15-20 cm away from the target anatomy of the pelvis. The 5-mm port was exchanged for a 12 mm robotic port. The patient was then placed in Trendelenburg position, at least 7 with left tilt 7 degrees. The robotic da Danish XI system was primed and docked from the left side of the patient. Using atraumatic graspers and vessel sealer, the robotic system was docked and primed as described. Instruments were interchanged by the esol teacher assistant including scissors, needle canal driver, robotic stapler and vessel sealer. Next, attention was brought to identify the cecum with tattooing. A stay suture using 0 silk was placed along the anterior serosa of the ascending colon including along the terminal ileum. The terminal ileum and ascending colon mesentery was mobilized using a vessel sealer whereby the colon was marked and tagged. Moderate tension was then found along the ileum where dense adhesions of the pelvis to the bladder prevented appropriate tension-free anastomosis. The patient was repositioned for extensive lysis of adhesions with the pelvis. The robot was undocked. Additional two 8 mm trocars were placed along the epigastrium. The patient was placed in Trendelenburg 21 degrees. Extensive lysis of adhesions using blunt dissection including scissors, vessel sealer was performed until the entire small bowel was unraveled from adherent pelvic including interloop adhesions. Extensive lysis of adhesions over 1 hour was performed. The small bowel was found adherent to the bladder, sigmoid colon, left pelvis which were all mobilized using vessel sealer including blunt dissection. The robot was then repositioned for the right hemicolectomy after redocking. Next, robot stapler 60 mm white load, the distal ileum was divided at ileocecal valve. The mesentery of the ascending colon was mobilized towards the midline using a vessel sealer. Next, the ascending colon was divided using the robotic stapler 60 mm green staple load. The rest of the colon mesentery was mobilized using vessel sealer including using blunt dissection. The vascular pedicle of the ileocolic artery was controlled using using a vessel sealer. The proximal colon and distal ileum was brought in a side to side anastomotic fashion after placing interrupted sutures along the proposed jude-lumen using 3-0 silk. A colotomy and enterotomy was prepared along both limbs along the antimesenteric border. Next, 60 mm green stapler loads were fired to create the jude-lumen. The jude-lumen was reapproximated using 3-0 silk followed by 60 mm green load for closure of the enterostomy. Further review of the anastomosis demonstrated ischemia. The anastomosis was revised. The ileum and transverse colon were resected in total of the anastomosis. Enterotomy on the ileum and transverse colon was then performed with double firing to create a widely patent ileocolic anastomosis. The neolumen was closed using 60 mm green staple loads. All needles were removed from the abdominal cavity. The robot was undocked. I re-scrubbed into the case. Via the 12 mm port of the left upper quadrant, the right colon was removed using a 15-mm Endo Catch bag after widening the skin incision to 3-cm. All sponges were removed from the abdominal cavity. No contamination had occurred throughout this portion of the case. The fascial defect was oversewn using 0 Vicryl and Jarrett Goodrich. Next all pneumoperitoneum was evacuated from the abdominal cavity. The 8-mm trocar sites were reapproximated using 4-0 Monocryl in an interrupted subcuticular fashion. Local anesthetic was infiltrated to all wounds for postop analgesia. All incisions were also cleansed with diluted hydrogen peroxide. An Optifoam surgical dressing was placed over the left upper quadrant incision of the colon extraction site. Exofin skin glue was applied to the rest of the skin incisions. The patient had tolerated the procedure well. The patient was extubated successfully. Intraoperative photos were reviewed with the patient's family who were overall pleased with the level of care. The patient was transferred to the postanesthesia care unit in stable condition.
== END ==
LOC: OR 06:30
PROVIDERS: ATTEND Surgery Plastic and Reconstructive Surgery
DX: C18.0 Malignant neoplasm of cecum (principal); D50.9 Iron deficiency anemia, unspecified; E03.9 Hypothyroidism, unspecified; E78.5 Hyperlipidemia, unspecified; I11.0 Hypertensive heart disease with heart failure; I25.10 Atherosclerotic heart disease of native coronary artery without angina pectoris; I25.2 Old myocardial infarction; I48.91 Unspecified atrial fibrillation; I50.9 Heart failure, unspecified; J44.9 Chronic obstructive pulmonary disease, unspecified; K21.9 Gastro-esophageal reflux disease without esophagitis; K76.0 Fatty (change of) liver, not elsewhere classified; M06.9 Rheumatoid arthritis, unspecified; N73.6 Female pelvic peritoneal adhesions (postinfective); Z79.890 Hormone replacement therapy; Z87.891 Personal history of nicotine dependence; Z88.1 Allergy status to other antibiotic agents; Z88.2 Allergy status to sulfonamides; Z88.8 Allergy status to other drugs, medicaments and biological substances; Z90.49 Acquired absence of other specified parts of digestive tract; Z90.710 Acquired absence of both cervix and uterus; Z91.040 Latex allergy status; Z91.041 Radiographic dye allergy status; Z95.5 Presence of coronary angioplasty implant and graft
CPT/HCPCS: 64999